=== PATIENT | male | born 1950 | race Caucasian/White ===

== ENCOUNTER 2016-09-11 19:31 | Emergency (ER) | payer MEDICARE, MEDICAID, OTHER ==
[2016-09-11] MEDS ORDERED: Morphine 4 MG/ML Syringe IVPUSH ONE ×2 (21:15→22:44)
[2016-09-11] MEDS ORDERED: Sodium Chloride 0.9% 10 ML Syringe FLUSH PRN (21:15)
[2016-09-11] MEDS ORDERED: Sodium Chloride 0.9% 1,000 ML IV SCH (21:30)
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
[2016-09-11 22:50] VITALS: BP 126/66
--- NOTE | 2016-09-12 08:44 | CR ---
Chest 2V INDICATION: dyspnea, recent mesothelioma diagnosis FINDINGS: Normal heart size. No focal infiltrate. Diffuse osteopenia. Changes of vertebral augmentat ion. Old right rib fracture. Bilateral nipple shadows.
== END 2016-09-11 23:35 | disposition home or self-care (01) ==
LOC: JP.ED 19:31
DX: R53.1 Weakness (principal); R63.4 Abnormal weight loss; R10.13 Epigastric pain; R73.9 Hyperglycemia, unspecified; R79.89 Other specified abnormal findings of blood chemistry; C45.7 Mesothelioma of other sites; C73 Malignant neoplasm of thyroid gland; Z88.0 Allergy status to penicillin; Z79.899 Other long term (current) drug therapy; Z98.1 Arthrodesis status; Z98.890 Other specified postprocedural states; Z87.891 Personal history of nicotine dependence
CPT/HCPCS: 36415; 70450; 71020; 80053; 81001; 83605; 83690; 84484; 85027; 93005; 96361; 96374; 96376; 99285; J2270; J7040; J7050; 93010; 99284

== ENCOUNTER 2016-09-13 03:54 | Inpatient (IN) | payer MEDICARE, OTHER ==
[2016-09-13] MEDS ORDERED: Sodium Chloride 0.9% 1,000 ML IV SCH ×3 (04:00→15:30)
--- NOTE | 2016-09-13 04:30 | EDM.PDOC ---
ED HPI Trauma - General Chief Complaint: Trauma Stated Complaint: [facility] Time Seen by Provider: 09/13/16 04:22 Source: Reports: EMS, Family (Daughter), Old records, RN notes reviewed History Limitations: Reports: Altered mental status - History of Present Illness INITIAL COMMENTS - FREE TEXT/NARRATIVE: 45 Seen on arrival by EMS, trauma code called prior to arrival Chief complaint Fall, loss of consciousness, unresponsive HPI 66-year-old male with recently diagnosed thyroid carcinoma and mesothelioma from previous asbestos exposure, not yet seen by oncology, new to the area of because he was homeless for approximately 3 weeks until his daughter received an anonymous phone call and went down to [place] to pick him up. He has been in the area for about 4 days staying with his daughter. Seen in emergency 2 days ago with pain primarily in his back but also all over. He has chronic pain from compression fractures in his thoracic spine he's had previous kyphoplasty and spinal fusion. Evaluation in emergency showed weight loss and malnutrition but no evidence of acute decompensation and after pain medication was given he was discharged with instructions to followup in the clinic. He has appointment for Saturday with Dr. Ivy. He has been off all alcohol since at least 5 days and there is no illegal drug use. Uncertain when his last seizure was. He ate well all day and was actually ambulating on his own. He's been staying on the main level his daughter's place with a bedroom and bathroom are. He goes upstairs to eat for the dining room living room and kitchen are located. After dinner 6 PM tonight he went downstairs which is a bit unusual as these spent some time up stairs. He had coughed a small amount of blood when the daughter had gone down to check on him. He was camping come upstairs at 2 AM this morning, uncertain why since he has a bathroom downstairs, when daughter and heard him fall on the stairs. It 's uncertain how far he was up the stairs. They found him unresponsive and probably called EMS. EMS noted his vital signs were normal but he had grunting respirations and improved when he had a nasopharyngeal airway inserted on initial arrival B[place] Coma Scale was 7 and after checking him, he did open his eyes spontaneously and other diffuse symptoms getting a [place] Coma Scale of 13 Allergies/ADRs: Allergies Penicillins Allergy (Verified 09/13/16 04:32) Anaphylactic Shock Home Medications: Ambulatory Orders ALPRAZolam [Alprazolam] 1 mg PO BID 09/11/16 [Confirmed 09/13/16] Hydrocodone/Acetaminophen [Hydrocodon-Acetaminophen 5-325] 1 each PO Q4H PRN # 12 tablet 09/11/16 [Confirmed 09/13/16] Hydrocodone/Acetaminophen [Hydrocodon-Acetaminophn 10-325] 1 - 2 tab PO Q6H PRN 09/11/16 [Confirmed 09/13/16] PHENobarbital [Phenobarbital] 97.2 mg PO BID 09/11/16 [Confirmed 09/13/16] Phenytoin 200 mg PO BID 09/11/16 [Confirmed 09/13/16] Past Medical History Respiratory History: Reports: COPD Genitourinary History: Reports: BPH Musculoskeletal History: Reports: Back pain, chronic Neurological History: Reports: Seizure Psychiatric History: Reports: Addiction Oncologic (Cancer) History: Reports: Lung, Thyroid, Other (see below) Other Oncologic History: mesotheleoma - Infectious Disease History Infectious Disease History: Reports: Chicken pox - Past Surgical History HEENT Surgical History: Reports: Tonsillectomy GI Surgical History: Reports: Esophageal dilatation Endocrine Surgical History: Reports: Other (see below) Other Endocrine Surgeries/Procedures: thyroid cancer Neurological Surgical History: Reports: Spinal fusion Musculoskeletal Surgical History: Reports: Other (see below) (Spinal fusion one level) Other Musculoskeletal Surgeries/Procedures:: back fusion Social & Family History - Tobacco Use Smoking Status *Q: Former Smoker Years of Tobacco use: 50 Packs/Tins Daily: 2 - Caffeine Use Caffeine Use: Reports: Coffee - Recreational Drug Use Recreational Drug Use: No Review of Systems - Review of Systems Review Of Systems: Unable To Obtain (Due to unresponsiveness) ED EXAM, TRAUMA (MAJOR/MULTI) - Physical Exam Exam: See Below Exam Limited By: Altered mental status General Appearance: obtunded, other (Breathing spontaneously on room air with nasopharyngeal airway, blood pressure 140 systolic) Head: atraumatic, normocephalic Eyes: bilateral eye: normal inspection (Normal pupillary reaction) Ears: normal external exam, normal canal Nose: normal inspection, normal mucousa Throat/Mouth: Normal inspection (Except for dry mucous membranes) Neck: other (Cervical collar in place, patient did complain briefly of neck pain ) Cardiovascular: normal peripheral pulses, regular rate, rhythm Respiratory/Chest: no respiratory distress, no accessory muscle use, rales ( Diffusely) GI/Abdominal: normal bowel sounds, soft (Male) Exam: No hernia, Normal inspection Extremities: other (Superficial abrasions dorsum of right hand, no deformity) Neurologic: other (Obtunded, no facial droop, some tremor) Skin: Normal color, Warm/dry - B[place]ide Coma Score Best Eye Response (Bayside): (1) no response Best Verbal Response (Bayside): (2) incomprehsible sounds Best Motor Response (Bayside): (4) withdraws to pain [place]ide Total: 7 (Within a few minutes he did open his eyes spontaneously to voice he had confused conversation saying get me out of here, any localized discomfort giving a [place] Coma Scale of 13) Course - Vital Signs Last Recorded V/S: Last Vital Signs Temp 35.9 C 09/13/16 04:44 Pulse 59 L 09/13/16 04:44 Resp 12 09/13/16 04:44 BP 141/70 H 09/13/16 04:44 Pulse Ox 100 09/13/16 04:44 - Orders/Labs/Meds Orders: Active Orders 24 hr Category Date Time Status EKG Documentation Completion [RC] ASDIRECTED Care 09/13/16 03:56 Active Peripheral IV Care [RC] . DIRECTED Care 09/13/16 03:56 Active C-Spine [Cervical Spine wo Cont] [CT] Stat Exams 09/13/16 03:55 Taken Chest 1V Frontal [CR] Stat Exams 09/13/16 04:20 Taken Head wo Cont [CT] Stat Exams 09/13/16 03:55 Taken Sodium Chloride 0.9% [Normal Saline] 1,000 ml Med 09/13/16 04:00 Active IV ASDIRECTED Sodium Chloride 0.9% [Saline Flush] Med 09/13/16 03:55 Active 10 ml FLUSH ASDIRECTED PRN Peripheral IV Insertion Adult [OM.PC] Routine Oth 09/13/16 03:55 Ordered EKG 12 Lead [EK] Routine Ther 09/13/16 03:55 Ordered Medication Orders Sodium Chloride (Normal Saline) 1,000 mls @ 250 mls/hr IV ASDIRECTED BRITTANY Last Admin: 09/13/16 04:31 Dose: 250 mls/hr Sodium Chloride (Saline Flush) 10 ml FLUSH ASDIRECTED PRN PRN Reason: Keep Vein Open Last Admin: 09/13/16 04:31 Dose: 10 ml Labs: Laboratory Tests 09/13/16 09/13/16 09/13/16 Range/Units 03:55 03:55 04:20 WBC 4.9 (4.5-11.0) K/uL RBC 3.99 L (4.30-5.90) M/uL Hgb 13.6 (12.0-15.0) g/dL Hct 40.0 (40.0-54.0) % MCV 100 H (80-98) fL MCH 34 H (27-31) pg MCHC 34 (32-36) % Plt Count 146 L (150-400) K/uL ABG Hemoglobin 13.4 L (13.5-18.0) g/dL ABG Oxyhemoglobin 60.6 % ABG Carboxyhemoglobin 1.7 H (0.0-1.6) % ABG Methemoglobin 0.8 % VBG pH 7.421 (7.350-7.450) VBG pCO2 43.4 mm/Hg VBG pO2 34.3 mm/Hg VBG HCO3 27.7 mmol/L VBG Total CO2 24.7 mmol/L VBG O2 Saturation 62.2 VBG O2 Content 11.4 %vol VBG Base Excess 3.3 mm/L O2 Delivery Device Room air Sodium 146 (140-148) mmol/L Potassium 3.8 (3.6-5.2) mmol/L Chloride 108 (100-108) mmol/L Carbon Dioxide 13 L D (21-32) mmol/L Anion Gap 28.8 H (5.0-14.0) mmol/L BUN 10 (7-18) mg/dL Creatinine 1.8 H (0.8-1.3) mg/dL Est Cr Clr Drug Dosing TNP Estimated GFR (MDRD) 38 L (>60) Glucose 101 (74-106) mg/dL Calcium 8.0 L (8.5-10.1) mg/dL Total Bilirubin 0.4 (0.2-1.0) mg/dL AST 32 (15-37) U/L ALT 35 (12-78) U/L Alkaline Phosphatase 80 (46-116) U/L Troponin I < 0.017 (0.000-0.056) ng/mL Total Protein 5.9 L (6.4-8.2) g/dL Albumin 3.5 (3.4-5.0) g/dL Globulin 2.4 (2.3-3.5) g/dL Albumin/Globulin Ratio 1.5 (1.2-2.2) Meds: Medications Generic Name Dose Route Start Last Admin Trade Name Freq PRN Reason Stop Dose Admin Sodium Chloride 1,000 mls @ 250 mls/hr 09/13/16 04:00 09/13/16 04:31 Normal Saline IV 250 mls/hr ASDIRECTED BRITTANY Administration Sodium Chloride 10 ml 09/13/16 03:55 09/13/16 04:31 Saline Flush FLUSH 10 ml ASDIRECTED PRN Administration Keep Vein Open - Re-Assessments/Exams Free Text/Narrative Re-Assessment/Exam: 09/13/16 04:32 66-year-old male recently moved to the area, after being homeless and malnourished for 3 weeks, with as yet uninvestigated diagnoses of thyroid cancer and mesothelioma. He does have a history of seizure disorder. Has also had frequent falls at home previously. Unwitnessed fall at home but family her in followup promptly called EMS when he was discovered on the stairs unresponsive. He still is quite drowsy post episode. Investigations 09/13/16 04:49 WBC normal hemoglobin normal platelets slightly low at 146 Creatinine 1.8 versus 2.32 days ago and GFR is improved 38 versus 29 2 days ago. Hepatic profile normal, troponin normal, Glucose 101 versus [address] head negative for acute changes CT neck no acute changes Portable chest x-ray no acute changes by my interpretation EKG shows sinus rhythm with low voltages rate 63 nonspecific T-wave changes Trauma code called off at 5 AM Patient now showing normal speech appropriate response to commands, [place] Coma Scale 15 Hospitalist was contacted for admission in view of the seizure his fragile status malnutrition. He needs referral to oncology. 09/13/16 05:00 Departure - Departure Time of Disposition: 05:01 Disposition: DC/Tfer to SNF 03 Clinical Impression: Malnutrition, Mesothelioma of both lungs Altered mental status Qualifiers: Altered mental status type: somnolence Qualified Code(s): R40.0 - Somnolence Accident due to mechanical fall without injury Qualifiers: Encounter type: initial encounter Qualified Code(s): W19.XXXA - Unspecified fall, initial encounter - My Orders Last 24 Hours: My Active Orders 09/13/16 03:55 C-Spine [Cervical Spine wo Cont] [CT] Stat Head wo Cont [CT] Stat Sodium Chloride 0.9% [Saline Flush] 10 ml FLUSH ASDIRECTED PRN Peripheral IV Insertion Adult [OM.PC] Routine EKG 12 Lead [EK] Routine 09/13/16 03:56 EKG Documentation Completion [RC] ASDIRECTED Peripheral IV Care [RC] . DIRECTED 09/13/16 04:00 Sodium Chloride 0.9% [Normal Saline] 1,000 ml IV ASDIRECTED 09/13/16 04:20 Chest 1V Frontal [CR] Stat - Assessment/Plan Last 24 Hours: My Active Orders 09/13/16 03:55 C-Spine [Cervical Spine wo Cont] [CT] Stat Head wo Cont [CT] Stat Sodium Chloride 0.9% [Saline Flush] 10 ml FLUSH ASDIRECTED PRN Peripheral IV Insertion Adult [OM.PC] Routine EKG 12 Lead [EK] Routine 09/13/16 03:56 EKG Documentation Completion [RC] ASDIRECTED Peripheral IV Care [RC] . DIRECTED 09/13/16 04:00 Sodium Chloride 0.9% [Normal Saline] 1,000 ml IV ASDIRECTED 09/13/16 04:20 Chest 1V Frontal [CR] Stat
[2016-09-13] MEDS: Sodium Chloride 0.9% 10 ML Syringe FLUSH PRN (04:31)
[2016-09-13] MEDS ORDERED: Lidocaine 2% Jelly 10 ML Urojet ONE (05:10)
[2016-09-13] MEDS ORDERED: Lidocaine 2% Jelly 10 ML Urojet MUCMEM ONE (05:20)
[2016-09-13] MEDS ORDERED: Morphine 2 MG/ML Syringe IVPUSH ONE (05:26)
[2016-09-13] MEDS ORDERED: Ondansetron 4 MG/2 ML SDV IVPUSH ONE (05:28)
--- NOTE | 2016-09-13 05:32 | PCM.HP ---
H&P History of Present Illness - General Date of Service: 09/13/16 Admit Problem/Dx: - altered mental status - accident due to mechanical fall without injury -malnutrition, bmi 19.7 - history of coughing/emesis blood space yesterday at 6 PM -History of chronic alcoholism -History of tobacco use -history of seizure disorder Source of Information: EMS, Family (Daughter Leonie), Provider History Limitations: Reports: Altered mental status - History of Present Illness Initial Comments - Free Text/Narative: INITIAL COMMENTS - FREE TEXT/NARRATIVE: 45 Seen on arrival by EMS, trauma code called prior to arrival Chief complaint Fall, loss of consciousness, unresponsive HPI 66-year-old male with recently diagnosed thyroid carcinoma and mesothelioma from previous asbestos exposure, not yet seen by oncology, new to the area of because he was homeless for approximately 3 weeks until his daughter received an anonymous phone call and went down to [place] to pick him up. He has been in the area for about 4 days staying with his daughter. Seen in emergency 2 days ago with pain primarily in his back but also all over. He has chronic pain from compression fractures in his thoracic spine he's had previous kyphoplasty and spinal fusion. Evaluation in emergency showed weight loss and malnutrition but no evidence of acute decompensation and after pain medication was given he was discharged with instructions to followup in the clinic. He has appointment for Saturday with Dr. Ivy. History of present illness from ER note complaint: fall at home with altered mental status He has been off all alcohol since at least 5 days and there is no illegal drug use. Uncertain when his last seizure was. He ate well all day and was actually ambulating on his own. He's been staying on the main level his daughter's place with a bedroom and bathroom are. He goes upstairs to eat for the dining room living room and kitchen are located. After dinner 6 PM tonight he went downstairs which is a bit unusual as these spent some time up stairs. He had coughed a small amount of blood when the daughter had gone down to check on him. He was come upstairs at 2 AM this morning, uncertain why since he has a bathroom downstairs, when daughter and heard him fall on the stairs. It 's uncertain how far he was up the stairs. They found him unresponsive, called EMS. EMS noted his vital signs were normal but he had grunting respirations and improved when he had a nasopharyngeal airway inserted on initial arrival [place] Coma Scale was 7 and after checking him, he did open his eyes spontaneously and other diffuse symptoms getting a [place] Coma Scale of 13 Allergies/ADRs: Allergies 09/13/16 04:32 66-year-old male recently moved to the area, after being homeless and malnourished for 3 weeks, with as yet uninvestigated diagnoses of thyroid cancer and mesothelioma. He does have a history of seizure disorder. Has also had frequent falls at home previously. Unwitnessed fall at home but family her in followup promptly called EMS when he was discovered on the stairs unresponsive. He still is quite drowsy post episode. Investigations 09/13/16 04:49 WBC normal hemoglobin normal platelets slightly low at 146 Creatinine 1.8 versus 2.32 days ago and GFR is improved 38 versus 29 2 days ago. Hepatic profile normal, troponin normal, Glucose 101 versus [address] head negative for acute changes CT neck no acute changes Portable chest x-ray no acute changes by my interpretation EKG shows sinus rhythm with low voltages rate 63 nonspecific T-wave changes Trauma code called off at 5 AM Patient now showing normal speech appropriate response to commands, [place] Coma Scale 15 Hospitalist was contacted for admission in view of the seizure his fragile status malnutrition. He needs referral to oncology. 09/13/16 05:00 Onset of Symptoms: Reports: sudden Symptom Onset Date: 09/13/16 Symptom Onset Time: 02:00 Duration of Symptoms: Reports: Recurring (Falls at home) Location: Reports: generalized Quality: Reports: Other ( Sleepy) Improves with: Reports: Medication Worsens with: Reports: None Associated Symptoms: Reports: other (Unknown if a slip, fall, or seizure occur) - Related Data Allergies/Adverse Reactions: Allergies Allergy/AdvReac Type Severity Reaction Status Date / Time Penicillins Allergy Anaphylactic Verified 09/13/16 04:32 Shock Home Medications: Home Meds ALPRAZolam [Alprazolam] 1 mg PO BID 09/11/16 [History] Hydrocodone/Acetaminophen [Hydrocodon-Acetaminophen 5-325] 1 each PO Q4H PRN # 12 tablet 09/11/16 [Rx] Hydrocodone/Acetaminophen [Hydrocodon-Acetaminophn 10-325] 1 - 2 tab PO Q6H PRN 09/11/16 [History] PHENobarbital [Phenobarbital] 97.2 mg PO BID 09/11/16 [History] Phenytoin 200 mg PO BID 09/11/16 [History] Nicotine [Nicotine Patch] 21 g TOP DAILY 09/13/16 [History] Past Medical History HEENT History: Reports: Impaired vision Respiratory History: Reports: COPD Gastrointestinal History: Reports: GERD Genitourinary History: Reports: BPH Other Genitourinary History: recent kidney function issue but undiagnoised at this time Musculoskeletal History: Reports: Back pain, chronic Neurological History: Reports: Seizure Psychiatric History: Reports: Addiction Endocrine/Metabolic History: Reports: Other (see below) Other Endocrine/Metabolic History: recent elevated blood sugars, undiagnoised. thyroid cancer, failed to go to surgery on 09/01/16 Oncologic (Cancer) History: Reports: Lung, Thyroid, Other (see below) Other Oncologic History: mesotheleoma - Infectious Disease History Infectious Disease History: Reports: Chicken pox - Past Surgical History HEENT Surgical History: Reports: Tonsillectomy GI Surgical History: Reports: Esophageal dilatation Endocrine Surgical History: Reports: Other (see below) Other Endocrine Surgeries/Procedures: thyroid cancer Neurological Surgical History: Reports: Spinal fusion Musculoskeletal Surgical History: Reports: Other (see below) (Spinal fusion one level) Other Musculoskeletal Surgeries/Procedures:: back fusion Social & Family History - Tobacco Use Smoking Status *Q: Former Smoker Years of Tobacco use: 50 Packs/Tins Daily: 2 - Caffeine Use Caffeine Use: Reports: Coffee - Recreational Drug Use Recreational Drug Use: No - Living Situation & Occupation Living situation: Reports: , with family Occupation: disabled H&P Review of Systems - Review of Systems: Review Of Systems: See Below General: Reports: weakness, other (Decreased level of consciousness ) HEENT: Reports: other (Multiple old bruises noted from previous falls, thyroid cancer not treated at this time) Pulmonary: Reports: Other (Mesothelioma) Cardiovascular: Reports: no symptoms Gastrointestinal: Reports: Anorexia, Constipation (Last bowel movement 5 days ago), Hematemesis (Today at 6 PM) Genitourinary: Reports: retention (Unable to void in the ER , Bladder scan shows greater than 1000 mL's,), other Musculoskeletal: Reports: back pain (Chronic back pain) Skin: Reports: bruising (Multiple bruises noted to face arms legs from previous falls) Psychiatric: Reports: depression, anxiety, agitation, other (History of addiction to alcohol, anxiety, suicide attempt by cutting, homelessness, mental illness) Neurological: Reports: Confusion, Pre-Existing Deficit, Seizure Hematologic/Lymphatic: Reports: easy bleeding Immunologic: Reports: no symptoms Exam - Exam Exam: See Below - Vital Signs Vital Signs: Last Vital Signs Temp 35.9 C 09/13/16 04:44 Pulse 59 L 09/13/16 04:44 Resp 12 09/13/16 04:44 BP 141/70 H 09/13/16 04:44 Pulse Ox 100 09/13/16 04:44 Weight: 55.338 kg - Exam Quality Assessment: urinary catheter General: lethargic HEENT: PERRLA, Conjunctiva clear, EACs clear, EOMI, Hearing intact, Mucosa moist & pink, Nares patent, Normal nasal septum, Posterior pharynx clear, Pupils equal, Pupils reactive Neck: supple Lungs: Clear to auscultation, Normal respiratory effort Cardiovascular: regular rate, regular rhythm Abdomen: normal bowel sounds, soft (Male) Exam: No hernia, Normal inspection, Normal prostate, Circumcised, Other (Sample collected for Hemoccult stool, rectal exam no stool is noted) Rectal (Males) Exam: Normal exam, Normal rectal tone, Prostate normal Back Exam: normal inspection, decreased range of motion Extremities: normal inspection Peripheral Pulses: 2+: radial (L), radial (R), dorsalis pedis (L), dorsalis pedis (R) Skin: warm, dry, intact, ecchymosis (Multiple stages of bruising noted to left forehead left side of face bilateral arms and legs) Neurological: other (Lethargic from fall) Neuro Extensive - Mental Status: other (Moves arms and legs equally) Psychiatric: other (Decreased level consciousness) Physical Exam Comments:: Very thin anorexic male is noted, does awake for rectal exam and urinary catheter otherwise sleeping - Patient Data Lab Results last 24 hrs: Laboratory Results - last 24 hr 09/13/16 09/13/16 09/13/16 Range/Units 03:55 03:55 04:20 WBC 4.9 (4.5-11.0) K/uL RBC 3.99 L (4.30-5.90) M/uL Hgb 13.6 (12.0-15.0) g/dL Hct 40.0 (40.0-54.0) % MCV 100 H (80-98) fL MCH 34 H (27-31) pg MCHC 34 (32-36) % Plt Count 146 L (150-400) K/uL ABG Hemoglobin 13.4 L (13.5-18.0) g/dL ABG Oxyhemoglobin 60.6 % ABG Carboxyhemoglobin 1.7 H (0.0-1.6) % ABG Methemoglobin 0.8 % VBG pH 7.421 (7.350-7.450) VBG pCO2 43.4 mm/Hg VBG pO2 34.3 mm/Hg VBG HCO3 27.7 mmol/L VBG Total CO2 24.7 mmol/L VBG O2 Saturation 62.2 VBG O2 Content 11.4 %vol VBG Base Excess 3.3 mm/L O2 Delivery Device Room air Sodium 146 (140-148) mmol/L Potassium 3.8 (3.6-5.2) mmol/L Chloride 108 (100-108) mmol/L Carbon Dioxide 13 L D (21-32) mmol/L Anion Gap 28.8 H (5.0-14.0) mmol/L BUN 10 (7-18) mg/dL Creatinine 1.8 H (0.8-1.3) mg/dL Est Cr Clr Drug Dosing TNP Estimated GFR (MDRD) 38 L (>60) Glucose 101 (74-106) mg/dL Calcium 8.0 L (8.5-10.1) mg/dL Total Bilirubin 0.4 (0.2-1.0) mg/dL AST 32 (15-37) U/L ALT 35 (12-78) U/L Alkaline Phosphatase 80 (46-116) U/L Troponin I < 0.017 (0.000-0.056) ng/mL Total Protein 5.9 L (6.4-8.2) g/dL Albumin 3.5 (3.4-5.0) g/dL Globulin 2.4 (2.3-3.5) g/dL Albumin/Globulin Ratio 1.5 (1.2-2.2) Result Diagrams: 09/13/16 03:55 09/13/16 03:55 *Q Meaningful Use (ADM) - VTE *Q VTE Criteria *Q: - Stroke *Q Stroke Criteria *Q: - AMI *Q AMI Criteria *Q: - Problem List (1) Accident due to mechanical fall without injury SNOMED Code(s): 62801411259091 ICD Code: W19.XXXA - UNSPECIFIED FALL, INITIAL ENCOUNTER Status: Acute Priority: High Current Visit: Yes Qualifiers: Encounter type: initial encounter Qualified Code(s): W19.XXXA - Unspecified fall, initial encounter (2) Altered mental status SNOMED Code(s): 679969892 ICD Code: R41.82 - ALTERED MENTAL STATUS, UNSPECIFIED Status: Acute Priority: High Current Visit: Yes Qualifiers: Altered mental status type: somnolence Qualified Code(s): R40.0 - Somnolence (3) Malnutrition SNOMED Code(s): 8941789 ICD Code: E46 - UNSPECIFIED PROTEIN-CALORIE MALNUTRITION Status: Acute Priority: High Current Visit: Yes Problem Details: 30 pound wt loss since Feb 2016 (4) Chronic thoracic back pain SNOMED Code(s): 610071013 ICD Code: M54.6 - PAIN IN THORACIC SPINE; G89.29 - OTHER CHRONIC PAIN Status: Acute Current Visit: No Qualifiers: Back pain laterality: midline Qualified Code(s): M54.6 - Pain in thoracic spine; G89.29 - Other chronic pain (5) Thyroid cancer Status: Acute Current Visit: Yes (6) Mesothelioma of both lungs SNOMED Code(s): 896092381, 295097713 ICD Code: C45.7 - MESOTHELIOMA OF OTHER SITES Status: Acute Priority: High Current Visit: Yes Problem List Initiated/Reviewed/Updated: Yes Orders Last 24hrs: Active Orders 24 hr Category Date Time Status EKG Documentation Completion [RC] ASDIRECTED Care 09/13/16 03:56 Active Chavarria Catheter Insertion [Insert Urinary Catheter] [OM. Care 09/13/16 05:30 Ordered PC] Q24H Peripheral IV Care [RC] . DIRECTED Care 09/13/16 03:56 Active Urinary Catheter Assessment [RC] ASDIRECTED Care 09/13/16 05:21 Active C-Spine [Cervical Spine wo Cont] [CT] Stat Exams 09/13/16 03:55 Taken Chest 1V Frontal [CR] Stat Exams 09/13/16 04:20 Taken Head wo Cont [CT] Stat Exams 09/13/16 03:55 Taken AMMONIA VENOUS [CHEM] Stat Lab 09/13/16 05:25 Ordered DRUG SCREEN, URINE [URCHEM] Stat Lab 09/13/16 05:27 Uncollected OCCULT BLOOD SCREEN [OP] Stat Lab 09/13/16 05:24 Ordered UA W/MICROSCOPIC [URIN] Stat Lab 09/13/16 05:27 Uncollected Sodium Chloride 0.9% [Normal Saline] 1,000 ml Med 09/13/16 04:00 Active IV ASDIRECTED Sodium Chloride 0.9% [Saline Flush] Med 09/13/16 03:55 Active 10 ml FLUSH ASDIRECTED PRN Peripheral IV Insertion Adult [OM.PC] Routine Oth 09/13/16 03:55 Ordered EKG 12 Lead [EK] Routine Ther 09/13/16 03:55 Ordered Medication Orders Sodium Chloride (Normal Saline) 1,000 mls @ 250 mls/hr IV ASDIRECTED BRITTANY Last Admin: 09/13/16 04:31 Dose: 250 mls/hr Sodium Chloride (Saline Flush) 10 ml FLUSH ASDIRECTED PRN PRN Reason: Keep Vein Open Last Admin: 09/13/16 04:31 Dose: 10 ml Assessment/Plan Comment:: ASSESSMENT / PLAN -This is a 66 year old male present to ER via EMS with fall down carpeted stairs at 2 AM., daughter found him unresponsive at the bottom of the stairs. unable to awaken her Father, call EMS to transport to the hospital/ER for further care and treatment. Upon arrival Trauma Code was activated, he had labs , CT scan of neck and head, chest xray, EKG. see ER noted. It was recommended to admit to hospital for further care and monitoring. past history of chronic alcoholism, mental illness, cancer of lungs and thyroid -not treated, disable, new relocation to [place] Plan -Admit to [address] [place] [address] for further monitoring -Telemetry; show SR -IV fluids for rehydration NS at 125 mL per hour -Advise to notify nurses of any chest pain or other symptoms -And 11 a.m. labs: repeat CBC -pending labs; ua, uds, fecal occult stool -monitor for any signs cough or emesis containing blood Maintenance issues -Orders home meds: -Nutrition: NPO, til more awake -Chavarria catheter place for bladder retention -DVT: hold -tobacco ; apply Nicotine patch daily 21mg -GI prophalaxis; Prontix 40mg iv -referral to: social welfare research worker, case management director, PT and OT CODE STATUS: Full Admission status: Admit to [address] [place] [address] Admission justification. This patient will be admitted for inpatient services and is medically appropriate meeting medical necessity for inpatient admission as outlined in my documentation. I reasonably expect the patient will require inpatient services that span. Time over 2 midnights. I reasonably expect this patient to be discharged or transferred within 96 hours after admission to the [facility]. Disposition; home with Daughter Leonie or Assisted/[facility] facility Primary care provider: CORNELIUS Buckley
[2016-09-13] MEDS ORDERED: Pantoprazole 40 MG Vial IV SCH (06:00)
[2016-09-13] MEDS ORDERED: Albuterol 0.083% 2.5 MG/3 ML Neb Soln NEB PRN (06:20)
[2016-09-13] MEDS ORDERED: Ondansetron 4 MG Tab.DIS PO PRN (06:20)
[2016-09-13] MEDS ORDERED: Acetaminophen 325 MG Tab PO PRN (06:20)
[2016-09-13] MEDS ORDERED: oxyCODONE 5 MG Tab PO PRN (06:20)
[2016-09-13] MEDS: LORazepam 2 MG/ML MDV IV PRN (06:39)
[2016-09-13] MEDS: Pantoprazole 40 MG Vial IV SCH ×2 (08:43→19:26)
[2016-09-13] MEDS: Morphine 2 MG/ML Syringe IVPUSH PRN ×5 (09:37→23:56)
[2016-09-13] MEDS: Phenytoin 100 MG Cap.ER PO SCH ×2 (09:41→21:49)
[2016-09-13] MEDS: Nicotine 21 MG/24 Hr Patch TRDERM SCH (09:41)
[2016-09-13] MEDS: PHENobarbital 32.4 MG Tab PO SCH ×2 (09:51→21:53)
[2016-09-13] MEDS: ALPRAZolam 0.5 MG Tab PO SCH ×2 (09:52→21:53)
--- NOTE | 2016-09-13 12:28 | CR ---
Mild cardiomegaly. Pulmonary vasculature within normal limits. Old right rib fractures. No focal con solidation.
--- NOTE | 2016-09-13 15:20 | PCM.PN ---
- General Info Date of Service: 09/13/16 - Review of Systems Systems Review Comment:: This patient is a 66-year-old gentleman who was admitted early this morning following a fall at home, with loss of consciousness. Patient apparently moved here recently to be with family, prior to that apparently was homeless and recently diagnosed with mesothelioma as well as a thyroid carcinoma. When I saw him this morning he was sleeping fairly hard and I was not able to awaken him to obtain further information concerning recent symptoms or events. Nursing staff states that the patient will awake intermittently to have something to eat. There is a past history of alcohol use and his last alcohol intake is presently unknown. Thus far there's been no evidence of significant alcohol withdrawal. When he initially presented did have significant acidosis, with the underlying question of possible seizure. - Patient Data Vitals - most recent: Last Vital Signs Temp 96.5 F 09/13/16 14:45 Pulse 88 09/13/16 14:45 Resp 20 09/13/16 14:45 BP 139/80 09/13/16 14:45 Pulse Ox 100 09/13/16 14:45 Weight - most recent: 121 lb 15.99 oz I&O - last 24 hours: Intake & Output 09/13/16 09/13/16 09/13/16 06:59 14:59 22:59 Output Total 900 525 Balance -900 -525 Lab Results last 24 hrs: Laboratory Results - last 24 hr 09/13/16 09/13/16 09/13/16 Range/Units 05:36 05:36 08:23 WBC (4.5-11.0) K/uL RBC (4.30-5.90) M/uL Hgb (12.0-15.0) g/dL Hct (40.0-54.0) % MCV (80-98) fL MCH (27-31) pg MCHC (32-36) % Plt Count (150-400) K/uL Neut % (Auto) (36-66) % Lymph % (Auto) (24-44) % Cottle % (Auto) (2-6) % Eos % (Auto) (2-4) % Baso % (Auto) (0-1) % Puncture Site Rt brachial ABG pH 7.387 (7.350-7.450) ABG pCO2 46.3 H (35.0-42.0) mmHg ABG pO2 70.1 L (75.0-100.0) mmHg ABG HCO3 27.2 H (22.0-26.0) mmol/L ABG Total CO2 24.5 (23.0-27.0) mmol/L ABG O2 Saturation 92.4 L (95.0-98.0) % ABG O2 Content 16.5 (15.0-23.0) %vol ABG Base Excess 2.2 mm/L ABG Hemoglobin 12.9 L (13.5-18.0) g/dL ABG Oxyhemoglobin 90.6 % ABG Carboxyhemoglobin 1.2 (0.0-1.6) % ABG Methemoglobin 0.7 % Cash Test Passed O2 Delivery Device Nasal cannula Oxygen Flow Rate 0 L Lactic Acid (0.4-2.0) mmol/L Urine Color Yellow Urine Appearance Clear Urine pH 7.0 (4.5-8.0) Ur Specific [place] 1.015 (1.008-1.030) Urine Protein Negative (NEGATIVE) mg/dL Urine Glucose (UA) Normal (NEGATIVE) mg/dL Urine Ketones 15 H (NEGATIVE) mg/dL Urine Occult Blood Negative (NEGATIVE) Urine Nitrite Negative (NEGAITVE) Urine Bilirubin Negative (NEGATIVE) Urine Urobilinogen Normal (NORMAL) mg/dL Ur Leukocyte Esterase Negative (NEGATIVE) Urine RBC 0-5 (0-5) Urine WBC 0-5 (0-5) Ur Epithelial Cells Rare Amorphous Sediment Few Urine Bacteria Rare Urine Mucus Few Urine Opiates Screen Positive H (NEGATIVE) Ur Oxycodone Screen Negative (NEGATIVE) Urine Methadone Screen Negative (NEGATIVE) Ur Propoxyphene Screen Negative (NEGATIVE) Ur Barbiturates Screen Positive H (NEGATIVE) Ur Tricyclics Screen Negative (NEGATIVE) Ur Phencyclidine Scrn Negative (NEGATIVE) Ur Amphetamine Screen Negative (NEGATIVE) U Methamphetamines Scrn Negative (NEGATIVE) Urine MDMA Screen Negative (NEGATIVE) U Benzodiazepines Scrn Negative (NEGATIVE) U Cocaine Metab Screen Negative (NEGATIVE) U Marijuana (THC) Screen Negative (NEGATIVE) 09/13/16 09/13/16 Range/Units 08:24 11:25 WBC 5.1 (4.5-11.0) K/uL RBC 3.53 L (4.30-5.90) M/uL Hgb 12.1 (12.0-15.0) g/dL Hct 36.0 L (40.0-54.0) % MCV 102 H (80-98) fL MCH 34 H (27-31) pg MCHC 34 (32-36) % Plt Count 131 L (150-400) K/uL Neut % (Auto) 57 (36-66) % Lymph % (Auto) 29 (24-44) % Cottle % (Auto) 11 H (2-6) % Eos % (Auto) 2 (2-4) % Baso % (Auto) 1 (0-1) % Puncture Site ABG pH (7.350-7.450) ABG pCO2 (35.0-42.0) mmHg ABG pO2 (75.0-100.0) mmHg ABG HCO3 (22.0-26.0) mmol/L ABG Total CO2 (23.0-27.0) mmol/L ABG O2 Saturation (95.0-98.0) % ABG O2 Content (15.0-23.0) %vol ABG Base Excess mm/L ABG Hemoglobin (13.5-18.0) g/dL ABG Oxyhemoglobin % ABG Carboxyhemoglobin (0.0-1.6) % ABG Methemoglobin % Cash Test O2 Delivery Device Oxygen Flow Rate L Lactic Acid 0.4 (0.4-2.0) mmol/L Urine Color Urine Appearance Urine pH (4.5-8.0) Ur Specific [place] (1.008-1.030) Urine Protein (NEGATIVE) mg/dL Urine Glucose (UA) (NEGATIVE) mg/dL Urine Ketones (NEGATIVE) mg/dL Urine Occult Blood (NEGATIVE) Urine Nitrite (NEGAITVE) Urine Bilirubin (NEGATIVE) Urine Urobilinogen (NORMAL) mg/dL Ur Leukocyte Esterase (NEGATIVE) Urine RBC (0-5) Urine WBC (0-5) Ur Epithelial Cells Amorphous Sediment Urine Bacteria Urine Mucus Urine Opiates Screen (NEGATIVE) Ur Oxycodone Screen (NEGATIVE) Urine Methadone Screen (NEGATIVE) Ur Propoxyphene Screen (NEGATIVE) Ur Barbiturates Screen (NEGATIVE) Ur Tricyclics Screen (NEGATIVE) Ur Phencyclidine Scrn (NEGATIVE) Ur Amphetamine Screen (NEGATIVE) U Methamphetamines Scrn (NEGATIVE) Urine MDMA Screen (NEGATIVE) U Benzodiazepines Scrn (NEGATIVE) U Cocaine Metab Screen (NEGATIVE) U Marijuana (THC) Screen (NEGATIVE) Vernon Results last 24 hrs: Microbiology 09/13/16 08:24 Stool Occult Blood (VERNON) - Final Stool / Feces NEGATIVE OCCULT BLOOD Med Orders - Current: Current Medications Acetaminophen (Tylenol) 650 mg PO Q4H PRN PRN Reason: Pain (Mild 1-3)/fever Albuterol (Proventil Neb Soln) 2.5 mg NEB Q4H PRN PRN Reason: Shortness Of Breath/wheezing Alprazolam (Xanax) 1 mg PO BID [facility] Last Admin: 09/13/16 09:52 Dose: 1 mg Bisacodyl (Dulcolax) 5 mg PO DAILY PRN PRN Reason: Constipation Docusate Sodium (Colace) 100 mg PO BID PRN PRN Reason: Constipation Sodium Chloride (Normal Saline) 1,000 mls @ 125 mls/hr IV ASDIRECTED [facility] Last Admin: 09/13/16 10:03 Dose: 125 mls/hr Lorazepam (Ativan) 1 mg IV Q6H PRN PRN Reason: Nausea/Vomiting Last Admin: 09/13/16 06:39 Dose: 1 mg Morphine Sulfate (Morphine) 2 mg IVPUSH Q2H PRN PRN Reason: Pain (severe 7-10) Last Admin: 09/13/16 09:37 Dose: 2 mg Nicotine (Habitrol) 21 mg TRDERM DAILY [facility] Last Admin: 09/13/16 09:41 Dose: 21 mg Ondansetron HCl (Zofran Odt) 4 mg PO Q6H PRN PRN Reason: Nausea able to take PO Oxycodone HCl (Oxycodone) 5 mg PO Q4H PRN PRN Reason: Pain (moderate 4-6) Pantoprazole Sodium (Protonix Iv) 40 mg IV Q12H [facility] Last Admin: 09/13/16 08:43 Dose: 40 mg Phenobarbital (Phenobarbital) 97.2 mg PO BID [facility] Last Admin: 09/13/16 09:51 Dose: 97.2 mg Phenytoin Sodium (Phenytoin) 200 mg PO BID [facility] Last Admin: 09/13/16 09:41 Dose: 200 mg Zolpidem Tartrate (Ambien) 5 mg PO BEDTIME PRN PRN Reason: Sleep Discontinued Medications Sodium Chloride (Normal Saline) 1,000 mls @ 250 mls/hr IV ASDIRECTED [facility] Last Admin: 09/13/16 04:31 Dose: 250 mls/hr Lidocaine HCl (Xylocaine 2% Jelly) Confirm Administered Dose 10 ml .ROUTE .STK- MED ONE Stop: 09/13/16 05:11 Last Admin: 09/13/16 05:23 Dose: Not Given Lidocaine HCl (Xylocaine 2% Jelly) 10 ml MUCMEM ONETIME ONE Stop: 09/13/16 05:21 Last Admin: 09/13/16 05:23 Dose: 10 ml Morphine Sulfate (Morphine) 2 mg IVPUSH ONETIME ONE Stop: 09/13/16 05:27 Last Admin: 09/13/16 05:32 Dose: 2 mg Ondansetron HCl (Zofran) 4 mg IVPUSH ONETIME ONE Stop: 09/13/16 05:29 Last Admin: 09/13/16 05:32 Dose: 4 mg Sodium Chloride (Saline Flush) 10 ml FLUSH ASDIRECTED PRN PRN Reason: Keep Vein Open Last Admin: 09/13/16 04:31 Dose: 10 ml - Exam Quality Assessment: DVT prophylaxis General: lethargic Lungs: Clear to auscultation, Normal respiratory effort, Decreased breath sounds Cardiovascular: Regular Rate, Regular Rhythm, No Murmurs Abdomen: bowel sounds present, soft, no tenderness, no distension Extremities: no edema Skin: warm, dry, intact - Problem List Review Problem List Initiated/Reviewed/Updated: Yes - My Orders Last 24 Hours: My Active Orders 09/14/16 05:00 CBC WITH AUTO DIFF [HEME] Timed COMPREHENSIVE METABOLIC PN,CMP [CHEM] Timed MAGNESIUM [CHEM] Timed - Plan Plan:: ASSESSMENT AND PLAN LOSS OF CONSCIOUSNESS-patient was found early this morning at the bottom of the stairs, and at that time was unconscious. Question as to whether he had fallen and experienced a head injury with loss of consciousness versus a seizure. Patient himself is not able to provide further history concerning the events. He apparently does have some past history of seizure disorder, as well as chronic alcohol use. Significant acidosis present on arrival would suggest probable seizure. Acidosis has now resolved based on followup laboratory studies. Other labs have been unremarkable, CT scan of the head and cervical spine showed no evidence of acute fracture or injury. -Admit to [address] [place] [address] for further monitoring -Telemetry monitoring -IV fluids for rehydration NS at 125 mL per hour -Neuro checks every 4 hours -Seizure precautions -Monitor closely for any evidence of alcohol withdrawal HISTORY OF CHRONIC ALCOHOL USE APPARENT RECENT DIAGNOSIS OF MESOTHELIOMA AND THYROID CARCINOMA -Obtain records for review Maintenance issues -Nutrition: Regular diet -Chavarria catheter; removed -tobacco ; apply Nicotine patch daily 21mg -GI prophalaxis; Prontix 40mg iv CODE STATUS: Full Admission status: Admit to [address] [place] [address] Admission justification. This patient will be admitted for inpatient services and is medically appropriate meeting medical necessity for inpatient admission as outlined in my documentation. I reasonably expect the patient will require inpatient services that span. Time over 2 midnights. I reasonably expect this patient to be discharged or transferred within 96 hours after admission to the critical access hospital. Disposition; home with Daughter Leonie or Assisted/[facility] facility Primary care provider: CORNELIUS Buckley
[2016-09-13] MEDS: Enoxaparin 40 MG/0.4 ML Syringe SUBCUT SCH (18:36)
--- NOTE | 2016-09-13 21:47 | PCM.SN ---
- Free Text/Narrative Note: time 21:15 call from [address] [place] [address]; Mr. Degroot and his daughter want to rescind DNR/DNI code status to full code a; Code status updated p; change from DNR/DNI to FULL CODE.
[2016-09-13] MEDS: Acetaminophen/HYDROcodone 325-10 MG Tab PO PRN (21:54)
[2016-09-14] MEDS: Morphine 2 MG/ML Syringe IVPUSH PRN ×8 (02:03→20:45)
[2016-09-14] MEDS: Acetaminophen/HYDROcodone 325-10 MG Tab PO PRN ×3 (05:45→18:37)
[2016-09-14] MEDS: Pantoprazole 40 MG Vial IV SCH (08:34)
[2016-09-14] MEDS: PHENobarbital 32.4 MG Tab PO SCH ×2 (09:04→20:52)
[2016-09-14] MEDS: Nicotine 21 MG/24 Hr Patch TRDERM SCH (09:04)
[2016-09-14] MEDS: Phenytoin 100 MG Cap.ER PO SCH ×2 (09:04→20:53)
[2016-09-14] MEDS: ALPRAZolam 0.5 MG Tab PO SCH ×2 (09:07→20:55)
--- NOTE | 2016-09-14 11:18 | PCM.PN ---
- General Info Date of Service: 09/14/16 Functional Status: Reports: pain controlled, tolerating diet - Review of Systems General: Reports: Weakness. Denies: Fever, Chills Pulmonary: Reports: no symptoms Cardiovascular: Reports: No Symptoms Gastrointestinal: Reports: No symptoms Systems Review Comment:: Mr. Degroot is shown improvement over the past 24 hours, he is much more alert and conversant than he had been yesterday. He is very weak and has marked difficulty with ambulation secondary to some weakness in his left leg. He states that this is chronic and has been present for the past 3 years. He confirms that he's had a diagnosis of mesothelioma, it sounds like this is based on previous CT scan, he denies ever having had a biopsy to confirm the diagnosis. He also has had a diagnosis of thyroid carcinoma, he states that he is thyroid gland was biopsied in [facility]. We're in the process of trying to obtain further records for review. - Patient Data Vitals - most recent: Last Vital Signs Temp 97.7 F 09/14/16 07:20 Pulse 70 09/14/16 07:20 Resp 16 09/14/16 07:20 BP 115/71 09/14/16 07:20 Pulse Ox 98 09/14/16 07:20 Weight - most recent: 121 lb 15.99 oz I&O - last 24 hours: Intake & Output 09/13/16 09/14/16 09/14/16 22:59 06:59 14:59 Intake Total 1973 1066 600 Output Total 500 775 450 Balance 1473 291 150 Lab Results last 24 hrs: Laboratory Results - last 24 hr 09/13/16 09/14/16 09/14/16 Range/Units 11:25 05:45 05:45 WBC 5.1 4.3 L (4.5-11.0) K/uL RBC 3.53 L 3.44 L (4.30-5.90) M/uL Hgb 12.1 12.0 (12.0-15.0) g/dL Hct 36.0 L 34.9 L (40.0-54.0) % MCV 102 H 102 H (80-98) fL MCH 34 H 35 H (27-31) pg MCHC 34 34 (32-36) % Plt Count 131 L 111 L (150-400) K/uL Neut % (Auto) 57 41 (36-66) % Lymph % (Auto) 29 44 (24-44) % [place] % (Auto) 11 H 10 H (2-6) % Eos % (Auto) 2 4 (2-4) % Baso % (Auto) 1 1 (0-1) % Sodium 144 (140-148) mmol/L Potassium 3.9 (3.6-5.2) mmol/L Chloride 109 H (100-108) mmol/L Carbon Dioxide 28 D (21-32) mmol/L Anion Gap 10.9 (5.0-14.0) mmol/L BUN 8 (7-18) mg/dL Creatinine 1.3 (0.8-1.3) mg/dL Est Cr Clr Drug Dosing 43.75 mL/min Estimated GFR (MDRD) 55 L (>60) Glucose 83 (74-106) mg/dL Calcium 7.5 L (8.5-10.1) mg/dL Magnesium 1.8 (1.8-2.4) mg/dL Total Bilirubin 0.4 (0.2-1.0) mg/dL AST 23 (15-37) U/L ALT 27 (12-78) U/L Alkaline Phosphatase 65 (46-116) U/L Total Protein 5.0 L (6.4-8.2) g/dL Albumin 2.9 L (3.4-5.0) g/dL Globulin 2.1 L (2.3-3.5) g/dL Albumin/Globulin Ratio 1.4 (1.2-2.2) Vernon Results last 24 hrs: Microbiology 09/13/16 08:24 Stool Occult Blood (VERNON) - Final Stool / Feces NEGATIVE OCCULT BLOOD Med Orders - Current: Current Medications Acetaminophen (Tylenol) 650 mg PO Q4H PRN PRN Reason: Pain (Mild 1-3)/fever Last Admin: 09/14/16 00:00 Dose: 650 mg Hydrocodone Bitart/Acetaminophen ([place] 325-10 Mg) 1 tab PO Q6H PRN PRN Reason: Pain (moderate 4-6) Last Admin: 09/14/16 05:45 Dose: 1 tab Albuterol (Proventil Neb Soln) 2.5 mg NEB Q4H PRN PRN Reason: Shortness Of Breath/wheezing Alprazolam (Xanax) 1 mg PO BID [facility] Last Admin: 09/14/16 09:07 Dose: 1 mg Bisacodyl (Dulcolax) 5 mg PO DAILY PRN PRN Reason: Constipation Docusate Sodium (Colace) 100 mg PO BID PRN PRN Reason: Constipation Enoxaparin Sodium (Lovenox) 40 mg SUBCUT Q24H [facility] Last Admin: 09/13/16 18:36 Dose: 40 mg Lorazepam (Ativan) 1 mg IV Q6H PRN PRN Reason: Nausea/Vomiting Last Admin: 09/13/16 06:39 Dose: 1 mg Morphine Sulfate (Morphine) 2 mg IVPUSH Q2H PRN PRN Reason: Pain (severe 7-10) Last Admin: 09/14/16 11:02 Dose: 2 mg Nicotine (Habitrol) 21 mg TRDERM DAILY [facility] Last Admin: 09/14/16 09:04 Dose: 21 mg Ondansetron HCl (Zofran Odt) 4 mg PO Q6H PRN PRN Reason: Nausea able to take PO [facility]op[facility]) [facility] Phenobarbital (Phenobarbital) 97.2 mg PO BID [facility] Last Admin: 09/14/16 09:04 Dose: 97.2 mg Phenytoin Sodium (Phenytoin) 200 mg PO BID [facility] Last Admin: 09/14/16 09:04 Dose: 200 mg Zolpidem Tartrate (Ambien) 5 mg PO BEDTIME PRN PRN Reason: Sleep Last Admin: 09/14/16 00:00 Dose: 5 mg Discontinued Medications Sodium Chloride (Normal Saline) 1,000 mls @ 250 mls/hr IV ASDIRECTED [facility] Last Admin: 09/13/16 04:31 Dose: 250 mls/hr Sodium Chloride (Normal Saline) 1,000 mls @ 125 mls/hr IV ASDIRECTED [facility] Last Admin: 09/13/16 10:03 Dose: 125 mls/hr Sodium Chloride (Normal Saline) 1,000 mls @ 50 mls/hr IV ASDIRECTED [facility] Last Admin: 09/13/16 20:52 Dose: 50 mls/hr Lidocaine HCl (Xylocaine 2% Jelly) Confirm Administered Dose 10 ml [facility] Stop: 09/13/16 05:11 Last Admin: 09/13/16 05:23 Dose: Not Given Lidocaine HCl (Xylocaine 2% Jelly) 10 ml MUCMEM ONETIME ONE Stop: 09/13/16 05:21 Last Admin: 09/13/16 05:23 Dose: 10 ml Morphine Sulfate (Morphine) 2 mg IVPUSH ONETIME ONE Stop: 09/13/16 05:27 Last Admin: 09/13/16 05:32 Dose: 2 mg Ondansetron HCl (Zofran) 4 mg IVPUSH ONETIME ONE Stop: 09/13/16 05:29 Last Admin: 09/13/16 05:32 Dose: 4 mg Oxycodone HCl (Oxycodone) 5 mg PO Q4H PRN PRN Reason: Pain (moderate 4-6) Last Admin: 09/13/16 16:08 Dose: 5 mg Pantoprazole Sodium (Protonix Iv) 40 mg IV Q12H [facility] Last Admin: 09/14/16 08:34 Dose: 40 mg Sodium Chloride (Saline Flush) 10 ml FLUSH ASDIRECTED PRN PRN Reason: Keep Vein Open Last Admin: 09/13/16 04:31 Dose: 10 ml - Exam Quality Assessment: DVT prophylaxis General: alert, oriented, cooperative Lungs: Clear to auscultation, Normal respiratory effort Cardiovascular: Regular Rate, Regular Rhythm, No Murmurs Abdomen: bowel sounds present, soft, no tenderness, no distension Extremities: no edema Skin: warm, dry, intact, ecchymosis - Problem List Review Problem List Initiated/Reviewed/Updated: Yes - My Orders Last 24 Hours: My Active Orders 09/13/16 15:20 Neuro Check [RC] Q4HR Remove Chavarria Catheter [Urinary Catheter Removal] [RC] Per Unit Routine Seizure Precautions [OM.PC] Routine 09/13/16 16:00 Enoxaparin [Lovenox] 40 mg SUBCUT Q24H 09/13/16 22:00 Acetaminophen/HYDROcodone [[place] 325-10 MG] 1 tab PO Q6H PRN 09/13/16 Dinner Regular Diet [DIET] 09/14/16 11:07 Chest Abdomen Pelvis w Cont [CT] Urgent 09/14/16 11:13 Convert IV to Saline Lock [OM.PC] Routine - Plan Plan:: ASSESSMENT AND PLAN LOSS OF CONSCIOUSNESS-he has improved significantly since admission, currently alert and oriented. No evidence thus far of significant alcohol withdrawal -Admit to [address] [place] [address] for further monitoring -Saline lock IV -Discontinue neuro checks -Seizure precautions -Monitor closely for any evidence of alcohol withdrawal HISTORY OF CHRONIC ALCOHOL USE APPARENT RECENT DIAGNOSIS OF MESOTHELIOMA AND THYROID CARCINOMA -In the process of obtaining records for further review -CT scan of the chest abdomen and pelvis with IV contrast for followup of metastatic mesothelioma CHRONIC BACK PAIN SECONDARY TO SEVERAL SPINAL COMPRESSION FRACTURES -Continue outpatient narcotic therapy Maintenance issues -Nutrition: Regular diet -Chavarria catheter; removed -tobacco ; apply Nicotine patch daily 21mg -GI prophalaxis; Prontix 40mg iv CODE STATUS: Full Admission status: Admit to [address] [place] [address] Admission justification. This patient will be admitted for inpatient services and is medically appropriate meeting medical necessity for inpatient admission as outlined in my documentation. I reasonably expect the patient will require inpatient services that span. Time over 2 midnights. I reasonably expect this patient to be discharged or transferred within 96 hours after admission to the critical access hospital. Disposition; home with Daughter Leonie or Assisted/[facility] facility Primary care provider: CORNELIUS Buckley
[2016-09-14] MEDS ORDERED: Iopamidol 612 MG/ML 100 ML Bottle IV PRN (13:47)
[2016-09-14] MEDS ORDERED: Sodium Chloride 0.9% 10 ML SDV FLUSH ONE (13:47)
[2016-09-14] MEDS ORDERED: Sodium Chloride 0.9% 100 ML IV SCH (14:00)
[2016-09-14] MEDS: Sodium Chloride 0.9% 10 ML Syringe FLUSH PRN (14:13)
--- NOTE | 2016-09-14 14:48 | CT ---
CT chest, abdomen and pelvis. Indication: History of metastatic mesothelioma Total DLP 292 Findings: Heterogeneous left lobe of the thyroid gland. Consider ultrasound follow-up. Mildly enlarg ed right precarinal lymph node 10 mm in short axis. Artery calcifications. Calcific granuloma medial superior segment right lower lobe. Tiny 2 mm nodules density peripherally right middle lobe. Modera te emphysematous change. There are calcified pleural plaques most notably above the right hemidiaphr agm however there is no soft tissue component to these. Old left rib fractures. Liver within normal limits. Gallstones. Bilateral adrenal glands are within normal limits. Pancreas within normal limits. Spleen within normal limits. Bladder is unremarkable. Atherosclerotic nonaneur ysmal aorta. Large amount of fecal residual. The appendix is nonvisualized on this examination. Ther e is mesenteric and mild body wall edema. No enlarged adenopathy within the abdomen or pelvis. Extra renal pelvis bilaterally. AVN of the right femoral head. Vertebroplasty change T12 vertebral body. Impression: 1. Calcified pleural plaques within the chest. This can indicate prior asbestos exposure. No soft ti ssue component. 2. No enlarged adenopathy within the abdomen or pelvis. 3. Large amount of fecal residual. 4. There is a mildly enlarged precarinal lymph node. Would consider CT follow-up in 6 months conside ring history. Tiny pulmonary nodules can be reevaluated at this time as well.
[2016-09-14] MEDS: Enoxaparin 40 MG/0.4 ML Syringe SUBCUT SCH (17:10)
[2016-09-14] MEDS: Pantoprazole 40 MG Tab.CR PO SCH (17:10)
[2016-09-14] MEDS: Zolpidem 5 MG Tab PO PRN ×2 (22:29)
[2016-09-14] MEDS: LORazepam 2 MG/ML MDV IV PRN (22:29)
[2016-09-15] MEDS: Acetaminophen/HYDROcodone 325-10 MG Tab PO PRN ×4 (00:59→20:34)
[2016-09-15] MEDS: Morphine 2 MG/ML Syringe IVPUSH PRN ×7 (01:00→22:12)
[2016-09-15] MEDS: Pantoprazole 40 MG Tab.CR PO SCH (08:20)
[2016-09-15] MEDS: Nicotine 21 MG/24 Hr Patch TRDERM SCH (09:27)
[2016-09-15] MEDS: Phenytoin 100 MG Cap.ER PO SCH ×2 (09:27→20:34)
[2016-09-15] MEDS: PHENobarbital 32.4 MG Tab PO SCH ×2 (09:43→20:43)
[2016-09-15] MEDS: ALPRAZolam 0.5 MG Tab PO SCH ×2 (09:43→20:34)
[2016-09-15] MEDS: Docusate Sodium 100 MG Cap PO PRN (11:37)
[2016-09-15] MEDS: Bisacodyl 5 MG Tab PO PRN (11:37)
--- NOTE | 2016-09-15 14:59 | PCM.PN ---
- General Info Date of Service: 09/15/16 Functional Status: Reports: tolerating diet, ambulating, urinating - Review of Systems General: Reports: Weakness. Denies: Fever, Chills Pulmonary: Reports: no symptoms Cardiovascular: Reports: No Symptoms Gastrointestinal: Reports: No symptoms Systems Review Comment:: This patient has been stable over the past 24 hours, overall strength seems to be slowly improving. Vital signs have been stable and he has remained afebrile. - Patient Data Vitals - most recent: Last Vital Signs Temp 95.3 F L 09/15/16 11:35 Pulse 70 09/15/16 11:35 Resp 18 09/15/16 11:35 BP 124/64 09/15/16 11:35 Pulse Ox 98 09/15/16 11:35 Weight - most recent: 121 lb 15.99 oz I&O - last 24 hours: Intake & Output 09/14/16 09/15/16 09/15/16 22:59 06:59 14:59 Intake Total 470 Output Total 1700 200 150 Balance -1230 -200 -150 Med Orders - Current: Current Medications Acetaminophen (Tylenol) 650 mg PO Q4H PRN PRN Reason: Pain (Mild 1-3)/fever Last Admin: 09/14/16 00:00 Dose: 650 mg Albuterol (Proventil Neb Soln) 2.5 mg NEB Q4H PRN PRN Reason: Shortness Of Breath/wheezing Alprazolam (Xanax) 1 mg PO BID [facility] Last Admin: 09/15/16 09:43 Dose: 1 mg Bisacodyl (Dulcolax) 5 mg PO DAILY PRN PRN Reason: Constipation Last Admin: 09/15/16 11:37 Dose: 5 mg Docusate Sodium (Colace) 100 mg PO BID PRN PRN Reason: Constipation Last Admin: 09/15/16 11:37 Dose: 100 mg Enoxaparin Sodium (Lovenox) 40 mg SUBCUT Q24H [facility] Last Admin: 09/14/16 17:10 Dose: 40 mg Lorazepam (Ativan) 1 mg IV Q6H PRN PRN Reason: Nausea/Vomiting Last Admin: 09/14/16 22:29 Dose: 1 mg Nicotine (Habitrol) 21 mg TRDERM DAILY [facility] Last Admin: 09/15/16 09:27 Dose: 21 mg Ondansetron HCl (Zofran Odt) 4 mg PO Q6H PRN PRN Reason: Nausea able to take PO [facility]oprazole [facility]) [facility] Last Admin: 09/15/16 08:20 Dose: 40 mg Phenobarbital (Phenobarbital) 97.2 mg PO BID [facility] Last Admin: 09/15/16 09:43 Dose: 97.2 mg Phenytoin Sodium (Phenytoin) 200 mg PO BID [facility] Last Admin: 09/15/16 09:27 Dose: 200 mg Zolpidem Tartrate (Ambien) 5 mg PO BEDTIME PRN PRN Reason: Sleep Last Admin: 09/14/16 22:29 Dose: 5 mg Discontinued Medications Hydrocodone Bitart/Acetaminophen ([place] 325-10 Mg) 1 tab PO Q6H PRN PRN Reason: Pain (moderate 4-6) Last Admin: 09/15/16 09:24 Dose: 1 tab Sodium Chloride (Normal Saline) 1,000 mls @ 250 mls/hr IV ASDIRECTED [facility] Last Admin: 09/13/16 04:31 Dose: 250 mls/hr Sodium Chloride (Normal Saline) 1,000 mls @ 125 mls/hr IV ASDIRECTED [facility] Last Admin: 09/13/16 10:03 Dose: 125 mls/hr Sodium Chloride (Normal Saline) 1,000 mls @ 50 mls/hr IV ASDIRECTED [facility] Last Admin: 09/13/16 20:52 Dose: 50 mls/hr Sodium Chloride (Normal Saline) 100 mls @ 3.5 mls/sec IV ASDIRECTED [facility] Stop: 09/14/16 14:30 Last Admin: 09/14/16 14:13 Dose: 3.5 mls/sec Iopamidol (Isovue-300 (61%)) 100 ml IV . DIRECTED PRN PRN Reason: RADIOLOGY EXAM Stop: 09/14/16 14:30 Last Admin: 09/14/16 14:13 Dose: 100 ml Lidocaine HCl (Xylocaine 2% Jelly) Confirm Administered Dose 10 ml .ROUTE .STK- MED ONE Stop: 09/13/16 05:11 Last Admin: 09/13/16 05:23 Dose: Not Given Lidocaine HCl (Xylocaine 2% Jelly) 10 ml MUCMEM ONETIME ONE Stop: 09/13/16 05:21 Last Admin: 09/13/16 05:23 Dose: 10 ml Morphine Sulfate (Morphine) 2 mg IVPUSH ONETIME ONE Stop: 09/13/16 05:27 Last Admin: 09/13/16 05:32 Dose: 2 mg Morphine Sulfate (Morphine) 2 mg IVPUSH Q2H PRN PRN Reason: Pain (severe 7-10) Last Admin: 09/15/16 14:40 Dose: 2 mg Ondansetron HCl (Zofran) 4 mg IVPUSH ONETIME ONE Stop: 09/13/16 05:29 Last Admin: 09/13/16 05:32 Dose: 4 mg Oxycodone HCl (Oxycodone) 5 mg PO Q4H PRN PRN Reason: Pain (moderate 4-6) Last Admin: 09/13/16 16:08 Dose: 5 mg Pantoprazole Sodium (Protonix Iv) 40 mg IV Q12H [facility] Last Admin: 09/14/16 08:34 Dose: 40 mg Sodium Chloride (Saline Flush) 10 ml FLUSH ASDIRECTED PRN PRN Reason: Keep Vein Open Last Admin: 09/14/16 14:13 Dose: 10 ml Sodium Chloride (Normal Saline) 10 ml FLUSH ONETIME ONE Stop: 09/14/16 13:48 Last Admin: 09/14/16 19:28 Dose: Not Given - Exam Quality Assessment: DVT prophylaxis General: alert, oriented, cooperative, mild distress Lungs: Clear to auscultation, Normal respiratory effort Cardiovascular: Regular Rate, Regular Rhythm, No Murmurs Abdomen: bowel sounds present, soft, no tenderness, no distension Extremities: no edema Skin: warm, dry, intact - Problem List Review Problem List Initiated/Reviewed/Updated: Yes - My Orders Last 24 Hours: My Active Orders 09/15/16 14:44 Acetaminophen/HYDROcodone [[place] 325-10 MG] 1 tab PO Q4H PRN 09/15/16 14:45 Morphine 4 mg IVPUSH Q2H PRN - Plan Plan:: ASSESSMENT AND PLAN LOSS OF CONSCIOUSNESS-he has improved significantly since admission, currently alert and oriented. No evidence thus far of significant alcohol withdrawal -Saline lock IV -Monitor closely for any evidence of alcohol withdrawal HISTORY OF CHRONIC ALCOHOL USE HISTORY OF ASBESTOS EXPOSURE-CT scan of the chest abdomen and pelvis obtained yesterday with IV contrast shows evidence of calcified pleural plaques consistent with previous asbestos exposure. There was no evidence of underlying mesothelioma or metastatic disease -In the process of obtaining records for further review -Schedule outpatient followup with pulmonary medicine THYROID CARCINOMA -Outpatient followup with oncology and endocrinology CHRONIC BACK PAIN SECONDARY TO SEVERAL SPINAL COMPRESSION FRACTURES -Continue outpatient narcotic therapy Maintenance issues -Nutrition: Regular diet -Chavarria catheter; removed -tobacco ; apply Nicotine patch daily 21mg -GI prophalaxis; Prontix 40mg by mouth daily CODE STATUS: Full Admission status: Admit to [address] [place] [address] Admission justification. This patient will be admitted for inpatient services and is medically appropriate meeting medical necessity for inpatient admission as outlined in my documentation. I reasonably expect the patient will require inpatient services that span. Time over 2 midnights. I reasonably expect this patient to be discharged or transferred within 96 hours after admission to the critical access hospital. Disposition; home with [facility] or Assisted/senior care facility Primary care provider: CORNELIUS Buckley
[2016-09-15] MEDS ORDERED: Sodium Phosphate,Monobasic/Sodium Phosphate,Dibasic Enema 133 ML Bottle RECTAL PRN (15:39)
[2016-09-15] MEDS ORDERED: Bisacodyl 10 MG Supp RECTAL PRN (15:39)
[2016-09-15] MEDS ORDERED: Polyethylene Glycol 3350 Powder 17 GM Packet PO PRN (15:39)
[2016-09-15] MEDS: Enoxaparin 40 MG/0.4 ML Syringe SUBCUT SCH (15:42)
[2016-09-16] MEDS: Acetaminophen/HYDROcodone 325-10 MG Tab PO PRN ×5 (00:32→20:43)
[2016-09-16] MEDS: LORazepam 2 MG/ML MDV IV PRN (00:42)
[2016-09-16] MEDS: Morphine 2 MG/ML Syringe IVPUSH PRN ×7 (03:59→23:14)
[2016-09-16] MEDS: Phenytoin 100 MG Cap.ER PO SCH ×2 (09:00→20:44)
[2016-09-16] MEDS: Pantoprazole 40 MG Tab.CR PO SCH (09:00)
[2016-09-16] MEDS: PHENobarbital 32.4 MG Tab PO SCH ×2 (09:02→20:44)
[2016-09-16] MEDS: Nicotine 21 MG/24 Hr Patch TRDERM SCH (09:02)
[2016-09-16] MEDS: ALPRAZolam 0.5 MG Tab PO SCH ×2 (09:30→20:44)
--- NOTE | 2016-09-16 13:46 | PCM.PN ---
- General Info Date of Service: 09/16/16 Functional Status: Reports: tolerating diet, ambulating, urinating - Review of Systems General: Reports: Weakness. Denies: Fever, Chills Pulmonary: Reports: no symptoms Cardiovascular: Reports: No Symptoms Gastrointestinal: Reports: No symptoms Psychiatric: Reports: depression Systems Review Comment:: Mr. Degroot has remained fairly stable over the past 24 hours, continues to experience ongoing difficulty with back pain which he's had for some time. Vital signs have been stable and he is remained afebrile. [facility]wait[facility] tomorrow. - Patient Data Vitals - most recent: Last Vital Signs Temp 97.2 F 09/16/16 11:27 Pulse 64 09/16/16 11:27 Resp 16 09/16/16 11:27 BP 114/61 09/16/16 11:27 Pulse Ox 99 09/16/16 11:27 Weight - most recent: 121 lb 15.99 oz I&O - last 24 hours: Intake & Output 09/15/16 09/16/16 09/16/16 22:59 06:59 14:59 Intake Total 940 240 Output Total 900 900 400 Balance 40 -660 -400 Med Orders - Current: Current Medications Acetaminophen (Tylenol) 650 mg PO Q4H PRN PRN Reason: Pain (Mild 1-3)/fever Last Admin: 09/14/16 00:00 Dose: 650 mg Hydrocodone Bitart/Acetaminophen ([place] 325-10 Mg) 1 tab PO Q4H PRN PRN Reason: Pain (moderate 4-6) Last Admin: 09/16/16 11:08 Dose: 1 tab Albuterol (Proventil Neb Soln) 2.5 mg NEB Q4H PRN PRN Reason: Shortness Of Breath/wheezing Alprazolam (Xanax) 1 mg PO BID [facility] Last Admin: 09/16/16 09:30 Dose: 1 mg Bisacodyl (Dulcolax) 5 mg PO DAILY PRN PRN Reason: Constipation Last Admin: 09/15/16 11:37 Dose: 5 mg Bisacodyl (Dulcolax) 10 mg RECTAL BID PRN PRN Reason: Constipation Citalopram Hydrobromide (Celexa) 20 mg PO DAILY [facility] Docusate Sodium (Colace) 100 mg PO BID PRN PRN Reason: Constipation Last Admin: 09/15/16 11:37 Dose: 100 mg Enoxaparin Sodium (Lovenox) 40 mg SUBCUT Q24H [facility] Last Admin: 09/15/16 15:42 Dose: 40 mg Lorazepam (Ativan) 1 mg IV Q6H PRN PRN Reason: Nausea/Vomiting Last Admin: 09/16/16 00:42 Dose: 1 mg Morphine Sulfate (Morphine) 4 mg IVPUSH Q2H PRN PRN Reason: Pain (severe 7-10) Last Admin: 09/16/16 13:10 Dose: 4 mg Nicotine (Habitrol) 21 mg TRDERM DAILY [facility] Last Admin: 09/16/16 09:02 Dose: 21 mg Ondansetron HCl (Zofran Odt) 4 mg PO Q6H PRN PRN Reason: Nausea able to take PO Pantoprazole Sodium (Protonix) 40 mg PO DAILY [facility] Last Admin: 09/16/16 09:00 Dose: 40 mg Phenobarbital (Phenobarbital) 97.2 mg PO BID [facility] Last Admin: 09/16/16 09:02 Dose: 97.2 mg Phenytoin Sodium (Phenytoin) 200 mg PO BID [facility] Last Admin: 09/16/16 09:00 Dose: 200 mg Polyethylene Glycol (Miralax) 17 gm PO TID PRN PRN Reason: Constipation Sodium Biphosphate/Sodium Phosphate (Fleet Enema) 133 ml RECTAL ONETIME PRN PRN Reason: Constipation Zolpidem Tartrate (Ambien) 5 mg PO BEDTIME PRN PRN Reason: Sleep Last Admin: 09/14/16 22:29 Dose: 5 mg Discontinued Medications Hydrocodone Bitart/Acetaminophen ([place] 325-10 Mg) 1 tab PO Q6H PRN PRN Reason: Pain (moderate 4-6) Last Admin: 09/15/16 09:24 Dose: 1 tab Sodium Chloride (Normal Saline) 1,000 mls @ 250 mls/hr IV ASDIRECTED [facility] Last Admin: 09/13/16 04:31 Dose: 250 mls/hr Sodium Chloride (Normal Saline) 1,000 mls @ 125 mls/hr IV ASDIRECTED [facility] Last Admin: 09/13/16 10:03 Dose: 125 mls/hr Sodium Chloride (Normal Saline) 1,000 mls @ 50 mls/hr IV ASDIRECTED [facility] Last Admin: 09/13/16 20:52 Dose: 50 mls/hr Sodium Chloride (Normal Saline) 100 mls @ 3.5 mls/sec IV ASDIRECTED [facility] Stop: 09/14/16 14:30 Last Admin: 09/14/16 14:13 Dose: 3.5 mls/sec Iopamidol (Isovue-300 (61%)) 100 ml IV . DIRECTED PRN PRN Reason: RADIOLOGY EXAM Stop: 09/14/16 14:30 Last Admin: 09/14/16 14:13 Dose: 100 ml Lidocaine HCl (Xylocaine 2% Jelly) Confirm Administered Dose 10 ml .ROUTE .STK- MED ONE Stop: 09/13/16 05:11 Last Admin: 09/13/16 05:23 Dose: Not Given Lidocaine HCl (Xylocaine 2% Jelly) 10 ml MUCMEM ONETIME ONE Stop: 09/13/16 05:21 Last Admin: 09/13/16 05:23 Dose: 10 ml Morphine Sulfate (Morphine) 2 mg IVPUSH ONETIME ONE Stop: 09/13/16 05:27 Last Admin: 09/13/16 05:32 Dose: 2 mg Morphine Sulfate (Morphine) 2 mg IVPUSH Q2H PRN PRN Reason: Pain (severe 7-10) Last Admin: 09/15/16 14:40 Dose: 2 mg Ondansetron HCl (Zofran) 4 mg IVPUSH ONETIME ONE Stop: 09/13/16 05:29 Last Admin: 09/13/16 05:32 Dose: 4 mg Oxycodone HCl (Oxycodone) 5 mg PO Q4H PRN PRN Reason: Pain (moderate 4-6) Last Admin: 09/13/16 16:08 Dose: 5 mg Pantoprazole Sodium (Protonix Iv) 40 mg IV Q12H [facility] Last Admin: 09/14/16 08:34 Dose: 40 mg Pantoprazole Sodium (Protonix) 40 mg PO BIDAC [facility] Last Admin: 09/15/16 08:20 Dose: 40 mg Sodium Chloride (Saline Flush) 10 ml FLUSH ASDIRECTED PRN PRN Reason: Keep Vein Open Last Admin: 09/14/16 14:13 Dose: 10 ml Sodium Chloride (Normal Saline) 10 ml FLUSH ONETIME ONE Stop: 09/14/16 13:48 Last Admin: 09/14/16 19:28 Dose: Not Given - Exam General: alert, oriented, cooperative, mild distress Lungs: Clear to auscultation, Normal respiratory effort Cardiovascular: Regular Rate, Regular Rhythm, No Murmurs Abdomen: bowel sounds present, soft, no tenderness, no distension Extremities: no edema Skin: warm, dry, intact - Problem List & Annotations (1) Calcified pleural plaque on chest x-ray SNOMED Code(s): 27665929 Code(s): J94.8 - OTHER SPECIFIED PLEURAL CONDITIONS Status: Acute Current Visit: Yes (2) Altered mental status SNOMED Code(s): 868994002 Code(s): R41.82 - ALTERED MENTAL STATUS, UNSPECIFIED Status: Acute Priority: High Current Visit: Yes Qualifiers: Altered mental status type: somnolence Qualified Code(s): R40.0 - Somnolence (3) Accident due to mechanical fall without injury SNOMED Code(s): 34073029976384 Code(s): W19.XXXA - UNSPECIFIED FALL, INITIAL ENCOUNTER Status: Acute Priority: High Current Visit: Yes Qualifiers: Encounter type: initial encounter Qualified Code(s): W19.XXXA - Unspecified fall, initial encounter (4) Chronic thoracic back pain SNOMED Code(s): 688012413 Code(s): M54.6 - PAIN IN THORACIC SPINE; G89.29 - OTHER CHRONIC PAIN Status : Chronic Current Visit: No Qualifiers: Back pain laterality: midline Qualified Code(s): M54.6 - Pain in thoracic spine; G89.29 - Other chronic pain (5) Thyroid cancer Status: Chronic Current Visit: Yes - Problem List Review Problem List Initiated/Reviewed/Updated: Yes - My Orders Last 24 Hours: My Active Orders 09/15/16 14:44 Acetaminophen/HYDROcodone [[place] 325-10 MG] 1 tab PO Q4H PRN 09/15/16 14:45 Morphine 4 mg IVPUSH Q2H PRN 09/15/16 15:39 Bisacodyl [Dulcolax] 10 mg RECTAL BID PRN Na Phos,M-B/Na Phos,DI-B [Fleet Enema] 133 ml RECTAL ONETIME PRN Polyethylene Glycol 3350 [MiraLAX] 17 gm PO TID PRN 09/16/16 09:00 Pantoprazole [Protonix] 40 mg PO DAILY 09/16/16 13:30 Citalopram [Celexa] 20 mg PO DAILY 09/16/16 13:38 Ready for Discharge [RC] PER UNIT ROUTINE - Plan Plan:: ASSESSMENT AND PLAN LOSS OF CONSCIOUSNESS-he has improved significantly since admission, currently alert and oriented. No evidence thus far of significant alcohol withdrawal -Saline lock IV -Monitor closely for any evidence of alcohol withdrawal HISTORY OF CHRONIC ALCOHOL USE HISTORY OF ASBESTOS EXPOSURE-CT scan of the chest abdomen and pelvis obtained with IV contrast shows evidence of calcified pleural plaques consistent with previous asbestos exposure. There was no evidence of underlying mesothelioma or metastatic disease -In the process of obtaining records for further review -Schedule outpatient followup with pulmonary medicine THYROID CARCINOMA -Outpatient followup with oncology and endocrinology DEPRESSION -Initiate antidepressant therapy with Celexa 20 mg by mouth daily CHRONIC BACK PAIN SECONDARY TO SEVERAL SPINAL COMPRESSION FRACTURES -Continue outpatient narcotic therapy Maintenance issues -Nutrition: Regular diet -Chavarria catheter; removed -tobacco ; apply Nicotine patch daily 21mg -GI prophalaxis; Prontix 40mg by mouth daily CODE STATUS: Full Admission status: Admit to [address] [place] [address] justification. This patient will be admitted for inpatient services and is medically appropriate meeting medical necessity for inpatient admission as outlined in my documentation. I reasonably expect the patient will require inpatient services that span. Time over 2 midnights. I reasonably expect this patient to be discharged or transferred within 96 hours after admission to the critical access hospital. Disposition; discharged to [facility] tomorrow a.m. Primary care provider: CORNELIUS Buckley
--- NOTE | 2016-09-16 13:58 | PCM.DCSUM1 ---
Discharge Summary - Hospital Course Brief History: Mr. Degroot is a 66-year-old gentleman who was admitted because of decreased level of consciousness following a fall at home. - Discharge Data Discharge Date: 09/17/16 Discharge Disposition: DC/Tfer to SNF 03 Condition: Fair - Discharge Diagnosis/Problem(s) (1) Calcified pleural plaque on chest x-ray SNOMED Code(s): 94558174 ICD Code: J94.8 - OTHER SPECIFIED PLEURAL CONDITIONS Status: Acute Current Visit: Yes (2) Altered mental status SNOMED Code(s): 226286685 ICD Code: R41.82 - ALTERED MENTAL STATUS, UNSPECIFIED Status: Acute Priority: High Current Visit: Yes Qualifiers: Altered mental status type: somnolence Qualified Code(s): R40.0 - Somnolence (3) Accident due to mechanical fall without injury SNOMED Code(s): 76180593721044 ICD Code: W19.XXXA - UNSPECIFIED FALL, INITIAL ENCOUNTER Status: Acute Priority: High Current Visit: Yes Qualifiers: Encounter type: initial encounter Qualified Code(s): W19.XXXA - Unspecified fall, initial encounter (4) Chronic thoracic back pain SNOMED Code(s): 408497234 ICD Code: M54.6 - PAIN IN THORACIC SPINE; G89.29 - OTHER CHRONIC PAIN Status: Chronic Current Visit: No Qualifiers: Back pain laterality: midline Qualified Code(s): M54.6 - Pain in thoracic spine; G89.29 - Other chronic pain (5) Thyroid cancer Status: Chronic Current Visit: Yes - Patient Summary/Data Consults: Consultations 09/13/16 06:20 Consult to Case Management [CONS] Routine Comment: Physician Instructions: Quantity: Reason for Consult: discharge planning 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 Special Instructions: relocated to [place] 3 days ago from [place] OT Evaluation and Treatment [CONS] Routine Please Evaluate and Treat. OT Reason for Consult: Discharge Planning This query below is only for informational purposes and is not editable. PT Evaluation and Treatment [CONS] Routine Please Evaluate and Treat. PT Reason for Consult: Strengthening This query below is only for informational purposes and is not editable. Hospital Course: This patient is a 66-year-old gentleman, he recently moved to this area from [place] to live with his daughter. He has had an ongoing history of chronic alcohol abuse as well as chronic back pain for which he's been treated with narcotics. During the middle of the night he apparently fell while trying to go up the stairs and was unconscious when the family found him. Does have a history of seizure disorder but denies that he had a seizure and strongly feels that he fell, hitting his head. On arrival in the emergency department he was semi-conscious and did undergo further evaluation including CT scan of the head and cervical spine. No evidence of acute fractures bleeding or other significant abnormalities were identified. He was admitted to the hospital for further care, initially received IV fluids for hydration. During the first 12 hours of his hospitalization he remained fairly lethargic, then slowly woke up and became more alert and interactive. He had no further episodes of lethargy or decreased level of consciousness during his hospital stay. Patient reports that he's been diagnosed with a thyroid carcinoma but has not had further evaluation or treatment with oncology. He also reported on admission that he had known metastatic mesothelioma. CT scan of the chest abdomen and pelvis was obtained for followup of a history of metastatic mesothelioma. Scan did show evidence of calcified pleural plaques consistent with asbestos exposure. There was no evidence of any soft tissue masses or evidence of metastatic disease including no bone lesions. Because of his ongoing chronic back pain he was treated with his usual narcotics as well as additional IV pain medication. Agent and his daughter both feel that he is having ongoing difficulty with depression and he was started on antidepressant therapy with Celexa 20 mg daily. Initially he was noted to have very profound weakness and marked difficulty with transfers and ambulation. Strength did seem to improve during his hospital stay but it was not felt that he was safe for independent ambulation. He will be discharged to snf for restorative physical therapy and occupational therapy. Activity will be as tolerated and he will resume his usual diet. Appointment will be made for him to establish primary care in this area within the next one to 2 weeks. He will require further subspecialty evaluation with pulmonology, endocrinology, and oncology. Daughter does have records from his previous evaluation was in [place]. - Patient Instructions Diet: Usual Diet as Tolerated Activity: As Tolerated Other/Special Instructions: Schedule primary care appointment in one to 2 weeks. - Discharge Plan Prescriptions/Med Rec: ALPRAZolam [Alprazolam] 1 mg PO BID #60 tablet Acetaminophen/HYDROcodone [[place] 325-10 MG] 1 tab PO Q4H #80 tablet Citalopram [Citalopram HBr] 20 mg PO DAILY #30 tablet Docusate Sodium [Colace] 100 mg PO BID #60 cap Nicotine [Habitrol] 21 mg TRDERM DAILY #30 patch PHENobarbital [Phenobarbital] 97.2 mg PO BID #60 tablet Pantoprazole [Protonix] 40 mg PO DAILY #30 tab.cr Phenytoin 200 mg PO BID #60 cap.er Home Medications: Home Meds ALPRAZolam [Alprazolam] 1 mg PO BID #60 tablet 09/16/16 [Rx] Acetaminophen/HYDROcodone [[place] 325-10 MG] 1 tab PO Q4H #80 tablet 09/16/16 [Rx ] Citalopram [Citalopram HBr] 20 mg PO DAILY #30 tablet 09/16/16 [Rx] Docusate Sodium [Colace] 100 mg PO BID #60 cap 09/16/16 [Rx] Nicotine [Habitrol] 21 mg TRDERM DAILY #30 patch 09/16/16 [Rx] PHENobarbital [Phenobarbital] 97.2 mg PO BID #60 tablet 09/16/16 [Rx] Pantoprazole [Protonix] 40 mg PO DAILY #30 tab.cr 09/16/16 [Rx] Phenytoin 200 mg PO BID #60 cap.er 09/16/16 [Rx] Referrals: Denis Ivy, REZA [Primary Care Provider] - - Patient Data Vitals - Most Recent: Last Vital Signs Temp 97.2 F 09/16/16 11:27 Pulse 64 09/16/16 11:27 Resp 16 09/16/16 11:27 BP 114/61 09/16/16 11:27 Pulse Ox 99 09/16/16 11:27 Weight - Most Recent: 121 lb 15.99 oz I&O - Last 24 hours: Intake & Output 09/15/16 09/16/16 09/16/16 22:59 06:59 14:59 Intake Total 940 240 Output Total 900 900 400 Balance 40 -660 -400 Med Orders - Current: Current Medications Acetaminophen (Tylenol) 650 mg PO Q4H PRN PRN Reason: Pain (Mild 1-3)/fever Last Admin: 09/14/16 00:00 Dose: 650 mg Hydrocodone Bitart/Acetaminophen ([place] 325-10 Mg) 1 tab PO Q4H PRN PRN Reason: Pain (moderate 4-6) Last Admin: 09/16/16 11:08 Dose: 1 tab Albuterol (Proventil Neb Soln) 2.5 mg NEB Q4H PRN PRN Reason: Shortness Of Breath/wheezing Alprazolam (Xanax) 1 mg PO BID [facility] Last Admin: 09/16/16 09:30 Dose: 1 mg Bisacodyl (Dulcolax) 5 mg PO DAILY PRN PRN Reason: Constipation Last Admin: 09/15/16 11:37 Dose: 5 mg Bisacodyl (Dulcolax) 10 mg RECTAL BID PRN PRN Reason: Constipation Citalopram Hydrobromide (Celexa) 20 mg PO DAILY [facility] Docusate Sodium (Colace) 100 mg PO BID PRN PRN Reason: Constipation Last Admin: 09/15/16 11:37 Dose: 100 mg Enoxaparin Sodium (Lovenox) 40 mg SUBCUT Q24H [facility] Last Admin: 09/15/16 15:42 Dose: 40 mg Lorazepam (Ativan) 1 mg IV Q6H PRN PRN Reason: Nausea/Vomiting Last Admin: 09/16/16 00:42 Dose: 1 mg Morphine Sulfate (Morphine) 4 mg IVPUSH Q2H PRN PRN Reason: Pain (severe 7-10) Last Admin: 09/16/16 13:10 Dose: 4 mg Nicotine (Habitrol) 21 mg TRDERM DAILY [facility] Last Admin: 09/16/16 09:02 Dose: 21 mg Ondansetron HCl (Zofran Odt) 4 mg PO Q6H PRN PRN Reason: Nausea able to take PO Pantoprazole Sodium (Protonix) 40 mg PO DAILY [facility] Last Admin: 09/16/16 09:00 Dose: 40 mg Phenobarbital (Phenobarbital) 97.2 mg PO BID [facility] Last Admin: 09/16/16 09:02 Dose: 97.2 mg Phenytoin Sodium (Phenytoin) 200 mg PO BID [facility] Last Admin: 09/16/16 09:00 Dose: 200 mg Polyethylene Glycol (Miralax) 17 gm PO TID PRN PRN Reason: Constipation Sodium Biphosphate/Sodium Phosphate (Fleet Enema) 133 ml RECTAL ONETIME PRN PRN Reason: Constipation Zolpidem Tartrate (Ambien) 5 mg PO BEDTIME PRN PRN Reason: Sleep Last Admin: 09/14/16 22:29 Dose: 5 mg Discontinued Medications Hydrocodone Bitart/Acetaminophen ([place] 325-10 Mg) 1 tab PO Q6H PRN PRN Reason: Pain (moderate 4-6) Last Admin: 09/15/16 09:24 Dose: 1 tab Sodium Chloride (Normal Saline) 1,000 mls @ 250 mls/hr IV ASDIRECTED [facility] Last Admin: 09/13/16 04:31 Dose: 250 mls/hr Sodium Chloride (Normal Saline) 1,000 mls @ 125 mls/hr IV ASDIRECTED [facility] Last Admin: 09/13/16 10:03 Dose: 125 mls/hr Sodium Chloride (Normal Saline) 1,000 mls @ 50 mls/hr IV ASDIRECTED [facility] Last Admin: 09/13/16 20:52 Dose: 50 mls/hr Sodium Chloride (Normal Saline) 100 mls @ 3.5 mls/sec IV ASDIRECTED [facility] Stop: 09/14/16 14:30 Last Admin: 09/14/16 14:13 Dose: 3.5 mls/sec Iopamidol (Isovue-300 (61%)) 100 ml IV . DIRECTED PRN PRN Reason: RADIOLOGY EXAM Stop: 09/14/16 14:30 Last Admin: 09/14/16 14:13 Dose: 100 ml Lidocaine HCl (Xylocaine 2% Jelly) Confirm Administered Dose 10 ml .ROUTE .STK- MED ONE Stop: 09/13/16 05:11 Last Admin: 09/13/16 05:23 Dose: Not Given Lidocaine HCl (Xylocaine 2% Jelly) 10 ml MUCMEM ONETIME ONE Stop: 09/13/16 05:21 Last Admin: 09/13/16 05:23 Dose: 10 ml Morphine Sulfate (Morphine) 2 mg IVPUSH ONETIME ONE Stop: 09/13/16 05:27 Last Admin: 09/13/16 05:32 Dose: 2 mg Morphine Sulfate (Morphine) 2 mg IVPUSH Q2H PRN PRN Reason: Pain (severe 7-10) Last Admin: 09/15/16 14:40 Dose: 2 mg Ondansetron HCl (Zofran) 4 mg IVPUSH ONETIME ONE Stop: 09/13/16 05:29 Last Admin: 09/13/16 05:32 Dose: 4 mg Oxycodone HCl (Oxycodone) 5 mg PO Q4H PRN PRN Reason: Pain (moderate 4-6) Last Admin: 09/13/16 16:08 Dose: 5 mg Pantoprazole Sodium (Protonix Iv) 40 mg IV Q12H [facility] Last Admin: 09/14/16 08:34 Dose: 40 mg Pantoprazole Sodium (Protonix) 40 mg PO BIDAC [facility] Last Admin: 09/15/16 08:20 Dose: 40 mg Sodium Chloride (Saline Flush) 10 ml FLUSH ASDIRECTED PRN PRN Reason: Keep Vein Open Last Admin: 09/14/16 14:13 Dose: 10 ml Sodium Chloride (Normal Saline) 10 ml FLUSH ONETIME ONE Stop: 09/14/16 13:48 Last Admin: 09/14/16 19:28 Dose: Not Given *Q Meaningful Use (DIS) - VTE *Q VTE Criteria *Q: - Stroke *Q Stroke Criteria *Q: - AMI *Q AMI Criteria *Q:
[2016-09-16] MEDS: Citalopram 20 MG Tab PO SCH (15:28)
[2016-09-16] MEDS: Enoxaparin 40 MG/0.4 ML Syringe SUBCUT SCH (15:28)
[2016-09-16] MEDS: Bisacodyl 5 MG Tab PO PRN (17:05)
[2016-09-16] MEDS: Docusate Sodium 100 MG Cap PO PRN (17:05)
[2016-09-17] MEDS: Morphine 2 MG/ML Syringe IVPUSH PRN ×2 (03:26→08:24)
[2016-09-17] MEDS: Docusate Sodium 100 MG Cap PO PRN (03:26)
[2016-09-17] MEDS: Bisacodyl 5 MG Tab PO PRN (03:26)
[2016-09-17] MEDS: Acetaminophen/HYDROcodone 325-10 MG Tab PO PRN ×2 (05:31→11:05)
[2016-09-17 08:09] VITALS: BP 128/65
[2016-09-17] MEDS: Citalopram 20 MG Tab PO SCH (08:28)
[2016-09-17] MEDS: Pantoprazole 40 MG Tab.CR PO SCH (08:28)
[2016-09-17] MEDS: Nicotine 21 MG/24 Hr Patch TRDERM SCH (08:28)
[2016-09-17] MEDS: Phenytoin 100 MG Cap.ER PO SCH (08:30)
[2016-09-17] MEDS: PHENobarbital 32.4 MG Tab PO SCH (08:33)
[2016-09-17] MEDS: ALPRAZolam 0.5 MG Tab PO SCH (08:33)
[2016-09-17] MEDS ORDERED: Morphine 4 MG/ML Syringe IVPUSH PRN (11:02)
== END 2016-09-17 11:40 | DRG 86 ==
LOC: JP.ED 03:54 → JP.MS 05:33
PROVIDERS: ADMIT Hospitalist; ATTEND Hospitalist
DX: S06.9X1A Unspecified intracranial injury with loss of consciousness of 30 minutes or less, initial encounter (principal); E87.2 Acidosis; K92.0 Hematemesis; E46 Unspecified protein-calorie malnutrition; J94.8 Other specified pleural conditions; R40.2413 Glasgow coma scale score 13-15, at hospital admission; Z68.20 Body mass index [BMI] 20.0-20.9, adult; W10.9XXA Fall (on) (from) unspecified stairs and steps, initial encounter; Y92.099 Unspecified place in other non-institutional residence as the place of occurrence of the external cause; Z91.81 History of falling; F10.21 Alcohol dependence, in remission; G40.909 Epilepsy, unspecified, not intractable, without status epilepticus; Z98.1 Arthrodesis status; M54.6 Pain in thoracic spine; G89.29 Other chronic pain; Z87.891 Personal history of nicotine dependence; H54.7 Unspecified visual loss; F32.9 Major depressive disorder, single episode, unspecified; Z88.0 Allergy status to penicillin; C73 Malignant neoplasm of thyroid gland; Z79.891 Long term (current) use of opiate analgesic; Z91.5 Personal history of self-harm
CPT/HCPCS: 36415; 70450; 71010 ×2; 72125; 80053; 82140; 82803; 84484; 85027; 93005; 96361; 96374; 96375; 99285; J2270; J2405; J7040; J7050; 36600; 71260; 71260-26; 74177; 74177-26; 80305; 81001; 82272; 83605; 83735; 85025; 93010; 96372; 97116-GP; 97162-GP; 97165-GO; A9270-GY; C9113; J1650; J2060; J7030; Q9967

== ENCOUNTER 2016-09-29 15:46 | Emergency (ER) | payer MEDICARE, MEDICAID ==
[2016-09-29] MEDS ORDERED: HYDROmorphone 0.5 MG/0.5 ML Syringe IVPUSH ONE (17:16)
--- NOTE | 2016-09-29 17:21 | EDM.PDOC ---
[id number] [facility] Time Seen by Provider: 09/29/16 17:19 Source: Reports: Patient, Family History Limitations: Reports: No limitations - History of Present Illness INITIAL COMMENTS - FREE TEXT/NARRATIVE: Pt qarrived with a seizure. He was found seizuring at the snf. Timing/Duration: Reports: Hour(s): Location (Neuro Complaint): Reports: generalized Quality (Neuro Complaint): Reports: weakness Severity: moderate Associated symptoms: Reports: other (pt is having severe back pain. ) - Related Data Allergies/ADRs: Allergies Allergy/AdvReac Type Severity Reaction Status Date / Time Penicillins Allergy Severe Anaphylactic Verified 09/13/16 07:23 Shock Home Meds: Home Meds ALPRAZolam [Alprazolam] 1 mg PO BID #60 tablet 09/16/16 [Rx] Acetaminophen/HYDROcodone [[place] 325-10 MG] 1 tab PO Q4H #80 tablet 09/16/16 [Rx ] Citalopram [Citalopram HBr] 20 mg PO DAILY #30 tablet 09/16/16 [Rx] Docusate Sodium [Colace] 100 mg PO BID #60 cap 09/16/16 [Rx] Nicotine [Habitrol] 21 mg TRDERM DAILY #30 patch 09/16/16 [Rx] PHENobarbital [Phenobarbital] 97.2 mg PO BID #60 tablet 09/16/16 [Rx] Pantoprazole [ProTONIX] 40 mg PO DAILY #30 tab.cr 09/16/16 [Rx] Phenytoin 200 mg PO BID #60 cap.er 09/16/16 [Rx] Past Medical History HEENT History: Reports: Impaired vision Respiratory History: Reports: COPD Gastrointestinal History: Reports: GERD Genitourinary History: Reports: BPH Other Genitourinary History: recent kidney function issue but undiagnoised at this time Musculoskeletal History: Reports: Back pain, chronic Neurological History: Reports: Seizure Psychiatric History: Reports: Addiction Endocrine/Metabolic History: Reports: Other (see below) Other Endocrine/Metabolic History: recent elevated blood sugars, undiagnoised. thyroid cancer, failed to go to surgery on 09/01/16 Oncologic (Cancer) History: Reports: Lung, Thyroid, Other (see below) Other Oncologic History: mesotheleoma - Infectious Disease History Infectious Disease History: Reports: Chicken pox - Past Surgical History HEENT Surgical History: Reports: Tonsillectomy GI Surgical History: Reports: Esophageal dilatation Endocrine Surgical History: Reports: Other (see below) Other Endocrine Surgeries/Procedures: thyroid cancer Neurological Surgical History: Reports: Spinal fusion Musculoskeletal Surgical History: Reports: Other (see below) Other Musculoskeletal Surgeries/Procedures:: back fusion Social & Family History - Tobacco Use Smoking Status *Q: Former Smoker Years of Tobacco use: 50 Packs/Tins Daily: 2 Second Hand Smoke Exposure: No - Caffeine Use Caffeine Use: Reports: Coffee - Alcohol Use Days Per Week of Alcohol Use: 3 Number of Drinks Per Day: 5 Total Drinks Per Week: 15 - Recreational Drug Use Recreational Drug Use: No - Living Situation & Occupation Living situation: Reports: , with family Occupation: disabled ED ROS GENERAL - Review of Systems Review Of Systems: See Below Constitutional: Reports: no symptoms HEENT: Reports: No symptoms Respiratory: Reports: No Symptoms Cardiovascular: Reports: No symptoms Endocrine: Reports: no symptoms GI/Abdominal: Reports: No symptoms : Reports: no symptoms Skin: Reports: other (pain in the lower back. He was started on fentyl patch 2 days ago and ended up with a seizure today. He does not like how he feels on the fentyl. ) Neurological: Reports: Seizure Psychiatric: Reports: No symptoms ED EXAM, NEURO - Physical Exam Exam: See Below Text/Narrative:: Pt has severe back pain. He does not like the fentyl patch. Exam Limited By: No limitations General Appearance: alert, other (pt was lethargic when he first arrived. He is now very alert. pupils equal and reactive. ) Ears: normal TMs Nose: normal inspection Throat/Mouth: Normal inspection Head Exam: atraumatic Neck: normal inspection Respiratory/Chest: no respiratory distress Cardiovascular: regular rate, rhythm GI/Abdominal: soft, non tender Rectal (Males) Exam: Deferred Neurological: alert, oriented x 3, other (post ictal. ) Back Exam: other ( very tender from the t spine to the L spine. ) Extremities: normal inspection Psychiatric: normal affect Course - Vital Signs Last Recorded V/S: Last Vital Signs Temp 37.1 C 09/29/16 16:56 Pulse 57 L 09/29/16 21:57 Resp 19 09/29/16 21:57 BP 126/56 L 09/29/16 21:57 Pulse Ox 96 09/29/16 21:57 - Orders/Labs/Meds Orders: Active Orders 24 hr Category Date Time Status Head wo Cont [CT] Stat Exams 09/29/16 17:16 Taken VL Duplex Lwr Ext Veins Comp [US] Stat Exams 09/29/16 19:31 Taken PHENOBARBITAL [REF] Stat Lab 09/29/16 18:33 Received Labs: Laboratory Tests 09/29/16 09/29/16 09/29/16 Range/Units 17:16 17:16 17:18 WBC 5.2 (4.5-11.0) K/uL RBC 3.59 L (4.30-5.90) M/uL Hgb 12.6 (12.0-15.0) g/dL Hct 37.5 L (40.0-54.0) % MCV 105 H (80-98) fL MCH 35 H (27-31) pg MCHC 34 (32-36) % Plt Count 199 (150-400) K/uL Neut % (Auto) 67 H (36-66) % Lymph % (Auto) 20 L (24-44) % [place] % (Auto) 9 H (2-6) % Eos % (Auto) 2 (2-4) % Baso % (Auto) 2 H (0-1) % Sodium 143 (140-148) mmol/L Potassium 4.2 (3.6-5.2) mmol/L Chloride 106 (100-108) mmol/L Carbon Dioxide 34 H (21-32) mmol/L Anion Gap 7.2 (5.0-14.0) mmol/L BUN 10 (7-18) mg/dL Creatinine 0.8 (0.8-1.3) mg/dL Est Cr Clr Drug Dosing 71.08 mL/min Estimated GFR (MDRD) > 60 (>60) Glucose 117 H (74-106) mg/dL Calcium 7.9 L (8.5-10.1) mg/dL Total Bilirubin 0.3 (0.2-1.0) mg/dL AST 19 (15-37) U/L ALT 20 (12-78) U/L Alkaline Phosphatase 96 (46-116) U/L Total Protein 5.8 L (6.4-8.2) g/dL Albumin 3.1 L (3.4-5.0) g/dL Globulin 2.7 (2.3-3.5) g/dL Albumin/Globulin Ratio 1.2 (1.2-2.2) Urine Color Urine Appearance Urine pH (4.5-8.0) Ur Specific Grady (1.008-1.030) Urine Protein (NEGATIVE) mg/dL Urine Glucose (UA) (NEGATIVE) mg/dL Urine Ketones (NEGATIVE) mg/dL Urine Occult Blood (NEGATIVE) Urine Nitrite (NEGAITVE) Urine Bilirubin (NEGATIVE) Urine Urobilinogen (NORMAL) mg/dL Ur Leukocyte Esterase (NEGATIVE) Urine RBC (0-5) Urine WBC (0-5) Ur Epithelial Cells Amorphous Sediment Urine Bacteria Urine Mucus Phenytoin 12.7 (10.0-20.0) ug/mL 09/29/16 Range/Units 19:01 WBC (4.5-11.0) K/uL RBC (4.30-5.90) M/uL Hgb (12.0-15.0) g/dL Hct (40.0-54.0) % MCV (80-98) fL MCH (27-31) pg MCHC (32-36) % Plt Count (150-400) K/uL Neut % (Auto) (36-66) % Lymph % (Auto) (24-44) % [place] % (Auto) (2-6) % Eos % (Auto) (2-4) % Baso % (Auto) (0-1) % Sodium (140-148) mmol/L Potassium (3.6-5.2) mmol/L Chloride (100-108) mmol/L Carbon Dioxide (21-32) mmol/L Anion Gap (5.0-14.0) mmol/L BUN (7-18) mg/dL Creatinine (0.8-1.3) mg/dL Est Cr Clr Drug Dosing mL/min Estimated GFR (MDRD) (>60) Glucose (74-106) mg/dL Calcium (8.5-10.1) mg/dL Total Bilirubin (0.2-1.0) mg/dL AST (15-37) U/L ALT (12-78) U/L Alkaline Phosphatase (46-116) U/L Total Protein (6.4-8.2) g/dL Albumin (3.4-5.0) g/dL Globulin (2.3-3.5) g/dL Albumin/Globulin Ratio (1.2-2.2) Urine Color Yellow Urine Appearance Clear Urine pH 8.0 (4.5-8.0) Ur Specific Grady 1.015 (1.008-1.030) Urine Protein Negative (NEGATIVE) mg/dL Urine Glucose (UA) Normal (NEGATIVE) mg/dL Urine Ketones Negative (NEGATIVE) mg/dL Urine Occult Blood Negative (NEGATIVE) Urine Nitrite Negative (NEGAITVE) Urine Bilirubin Negative (NEGATIVE) Urine Urobilinogen Normal (NORMAL) mg/dL Ur Leukocyte Esterase Negative (NEGATIVE) Urine RBC 0-5 (0-5) Urine WBC 0-5 (0-5) Ur Epithelial Cells Not seen Amorphous Sediment Rare Urine Bacteria Not seen Urine Mucus Not seen Phenytoin (10.0-20.0) ug/mL Meds: Medications Discontinued Medications Generic Name Dose Route Start Last Admin Trade Name Freq PRN Reason Stop Dose Admin Hydrocodone Bitart/Acetaminophen 1 tab 09/29/16 21:27 09/29/16 22:13 [place] 325-5 Mg PO 09/29/16 21:28 1 tab ONETIME ONE Administration Furosemide 40 mg 09/29/16 19:33 09/29/16 20:22 Lasix IVPUSH 09/29/16 19:34 40 mg ONETIME ONE Administration Furosemide 20 mg 09/29/16 22:46 09/29/16 23:29 Lasix PO 09/29/16 22:47 20 mg ONETIME ONE Administration Hydromorphone HCl 0.5 mg 09/29/16 17:16 09/29/16 17:32 Dilaudid IVPUSH 09/29/16 17:17 0.5 mg ONETIME ONE Administration Phenytoin Sodium 100 mg 09/29/16 19:16 09/29/16 20:22 Phenytoin IVPUSH 09/29/16 19:17 100 mg ONETIME ONE Administration - Re-Assessments/Exams Free Text/Narrative Re-Assessment/Exam: 09/29/16 19:28 Pt had a slightly low phentoin level He was given a extra 100mg of phentoin. The fentyl patches were removed. will plan to resume the norco 5/325 for pain controll Departure - Departure Time of Disposition: 23:10 Disposition: Home, Self-Care 01 Condition: fair Clinical Impression: Seizure, Pedal edema, Dilantin level too low Instructions: Seizure, Adult Referrals: PCP,None [Primary Care Provider] - Forms: ED Department Discharge Care Plan Goals: elevate leg, lasix 20mg po daily, increase dilantin to 200mg in am, 300mg at bedtime, dilantin level in 1 week, stop the fentyl patches, norco 5/325 q6h prn for pain, cont other meds. - My Orders Last 24 Hours: My Active Orders 09/29/16 17:16 Head wo Cont [CT] Stat 09/29/16 18:33 PHENOBARBITAL [REF] Stat 09/29/16 19:31 VL Duplex Lwr Ext Veins Comp [US] Stat - Assessment/Plan Last 24 Hours: My Active Orders 09/29/16 17:16 Head wo Cont [CT] Stat 09/29/16 18:33 PHENOBARBITAL [REF] Stat 09/29/16 19:31 VL Duplex Lwr Ext Veins Comp [US] Stat
[2016-09-29] MEDS ORDERED: Phenytoin 250 MG/5 ML SDV IVPUSH ONE (19:16)
[2016-09-29] MEDS ORDERED: Furosemide 40 MG/4 ML VIAL IVPUSH ONE (19:33)
[2016-09-29] MEDS ORDERED: Acetaminophen/HYDROcodone 325-5 MG Tab PO ONE (21:27)
[2016-09-29 22:01] VITALS: BP 126/56
[2016-09-29] MEDS ORDERED: Furosemide 20 MG Tab PO ONE (22:46)
== END 2016-09-29 23:31 | disposition home or self-care (01) ==
LOC: JP.ED 15:46
DX: G40.909 Epilepsy, unspecified, not intractable, without status epilepticus (principal); R60.1 Generalized edema; K21.9 Gastro-esophageal reflux disease without esophagitis; J44.9 Chronic obstructive pulmonary disease, unspecified; Z88.0 Allergy status to penicillin; Z79.899 Other long term (current) drug therapy; Z98.890 Other specified postprocedural states; Z87.891 Personal history of nicotine dependence; T42.0X5A Adverse effect of hydantoin derivatives, initial encounter
CPT/HCPCS: 36415; 70450; 80053; 80184; 80185; 81001; 85025; 93970; 96374; 96375; 99285; A9270; J1165; J1170; J1940; 99284

== ENCOUNTER 2016-10-22 22:36 | Inpatient (IN) | payer MEDICARE, MEDICAID ==
[2016-10-22] MEDS: Sodium Chloride 0.9% 1,000 ML IV SCH (23:10)
--- NOTE | 2016-10-22 23:13 | EDM.PDOC ---
ED HPI Behavioral Health - General Chief Complaint: Drug or Alcohol Abuse Stated Complaint: ILLNESS Time Seen by Provider: 10/22/16 22:45 Source: Reports: Patient, Family Exam Limitations: Reports: Uncooperative (Patient himself offers little history) - History of Present Illness INITIAL COMMENTS - FREE TEXT/NARRATIVE: 66-year-old chronic alcoholic who is now living with his daughter was hoping that he can show some improvement for the last 2 days has been "cranky". They went out for supper tonight and he did not want to join them, while they were out he drank a half a bottle of rubbing alcohol. 4 hours later he came up the stairs yelling for help because he didn't feel well. He now denies any pain other than his baseline chronic back problems. No nausea or vomiting. Vitals are stable - Related Data Allergies Allergy/AdvReac Type Severity Reaction Status Date / Time Penicillins Allergy Severe Anaphylactic Verified 10/22/16 22:44 Shock Home Medications: Home Meds Docusate Sodium [Colace] 100 mg PO BID #60 cap 09/16/16 [Rx] Nicotine [Habitrol] 21 mg TRDERM DAILY #30 patch 09/16/16 [Rx] PHENobarbital [Phenobarbital] 97.2 mg PO BID #60 tablet 09/16/16 [Rx] Pantoprazole [ProTONIX] 40 mg PO DAILY #30 tab.cr 09/16/16 [Rx] Phenytoin 200 mg PO BID #60 cap.er 09/16/16 [Rx] ALPRAZolam [Alprazolam] 1 mg PO Q8H 10/22/16 [History] Acetaminophen/HYDROcodone [[place] 325-10 MG] 1 tab PO Q8H 10/22/16 [History] Citalopram [Citalopram HBr] 30 mg PO DAILY 10/22/16 [History] Furosemide [Lasix] 20 mg PO DAILY 10/22/16 [History] fentaNYL [Fentanyl] 50 mcg TOP Q3D 10/22/16 [History] back Pain Score (Numeric/FACES): 10 Past Medical History HEENT History: Reports: Impaired vision Cardiovascular History: Reports: None Respiratory History: Reports: None, COPD Gastrointestinal History: Reports: GERD Genitourinary History: Reports: BPH Other Genitourinary History: recent kidney function issue but undiagnoised at this time Musculoskeletal History: Reports: Back pain, chronic Neurological History: Reports: Seizure Psychiatric History: Reports: Addiction, Depression, Suicide attempt Endocrine/Metabolic History: Reports: Other (see below) Other Endocrine/Metabolic History: recent elevated blood sugars, undiagnoised. thyroid cancer, failed to go to surgery on 09/01/16 Hematologic History: Reports: None Immunologic History: Reports: None Oncologic (Cancer) History: Reports: Thyroid, Other (see below) Other Oncologic History: s/s of mesotheleoma Dermatologic History: Reports: None - Infectious Disease History Infectious Disease History: Reports: Chicken pox - Past Surgical History HEENT Surgical History: Reports: Tonsillectomy GI Surgical History: Reports: Esophageal dilatation Endocrine Surgical History: Reports: Other (see below) Other Endocrine Surgeries/Procedures: thyroid cancer Neurological Surgical History: Reports: Spinal fusion Musculoskeletal Surgical History: Reports: Other (see below) Other Musculoskeletal Surgeries/Procedures:: back fusion Social & Family History - Tobacco Use Smoking Status *Q: Former Smoker Years of Tobacco use: 50 Packs/Tins Daily: 2 Used Tobacco, but Quit: Yes Month Tobacco Last Used: 08/2016 Second Hand Smoke Exposure: No - Caffeine Use Caffeine Use: Reports: None - Alcohol Use Days Per Week of Alcohol Use: 3 Number of Drinks Per Day: 5 Total Drinks Per Week: 15 - Recreational Drug Use Recreational Drug Use: No - Living Situation & Occupation Living situation: Reports: , with family Occupation: disabled ED ROS GENERAL - Review of Systems Review Of Systems: See Below Constitutional: Denies: fever, chills Respiratory: Denies: Shortness of Breath Cardiovascular: Denies: Chest pain Musculoskeletal: Reports: back pain (Chronic) Skin: Reports: no symptoms ED EXAM, BEHAVIORAL HEALTH - Physical Exam Exam: See Below Exam Limited By: Uncooperative General Appearance: alert, no apparent distress Eye Exam: bilateral eye: EOMI Respiratory/Chest: no respiratory distress, lungs clear Cardiovascular: regular rate, rhythm GI/Abdominal: soft, non tender Extremities: normal inspection. No: pedal edema Neurological: alert Psychiatric: depressed mood, flat affect Skin Exam: Warm, Dry COURSE, BEHAVIORAL HEALTH COMP - Course Vital Signs: Last Vital Signs Temp 97.9 F 10/23/16 02:20 Pulse 65 10/23/16 04:00 Resp 11 L 10/23/16 04:00 BP 129/58 L 10/23/16 04:00 Pulse Ox 95 10/23/16 04:00 Orders, Labs, Meds: Active Orders 24 hr Category Date Time Status Sodium Chloride 0.9% [Normal Saline] 1,000 ml Med 10/22/16 23:00 Active IV ASDIRECTED Medication Orders Hydrocodone Bitart/Acetaminophen ([place] 325-5 Mg) 1 tab PO Q4H PRN PRN Reason: Pain (moderate 4-6) Last Admin: 10/23/16 03:05 Dose: 1 tab Alprazolam (Xanax) 0.5 mg PO BID PRN PRN Reason: Anxiety Heparin Sodium (Porcine) (Heparin Sodium) 5,000 units SUBCUT Q8H [facility] Last Admin: 10/23/16 03:05 Dose: Not Given Admin: 10/23/16 03:04 Dose: 5,000 units Sodium Chloride (Normal Saline) 1,000 mls @ 150 mls/hr IV ASDIRECTED BRITTANY Last Admin: 10/23/16 01:14 Dose: 150 mls/hr Infusion: 10/23/16 01:10 Dose: 500 mls/hr Admin: 10/22/16 23:10 Dose: 500 mls/hr Ondansetron HCl (Zofran Odt) 4 mg PO Q6H PRN PRN Reason: Nausea able to take PO Pantoprazole Sodium (Protonix) 40 mg PO DAILY [facility] Promethazine HCl (Phenergan) 25 mg PO Q6H PRN PRN Reason: Nausea able to take PO Laboratory Tests 10/22/16 10/22/16 10/22/16 Range/Units 23:10 23:10 23:10 WBC 5.8 (4.5-11.0) K/uL RBC 4.01 L (4.30-5.90) M/uL Hgb 13.9 (12.0-15.0) g/dL Hct 40.5 (40.0-54.0) % MCV 101 H (80-98) fL MCH 35 H (27-31) pg MCHC 34 (32-36) % Plt Count 199 (150-400) K/uL Neut % (Auto) 61 (36-66) % Lymph % (Auto) 29 (24-44) % [place] % (Auto) 7 H (2-6) % Eos % (Auto) 2 (2-4) % Baso % (Auto) 2 H (0-1) % Sodium 141 (140-148) mmol/L Potassium 3.9 (3.6-5.2) mmol/L Chloride 104 (100-108) mmol/L Carbon Dioxide 31 (21-32) mmol/L Anion Gap 6.2 (5.0-14.0) mmol/L BUN 9 (7-18) mg/dL Creatinine 1.0 (0.8-1.3) mg/dL Est Cr Clr Drug Dosing 66.67 mL/min Estimated GFR (MDRD) > 60 (>60) Glucose 136 H (74-106) mg/dL Calcium 8.0 L (8.5-10.1) mg/dL Total Bilirubin 0.3 (0.2-1.0) mg/dL AST 25 (15-37) U/L ALT 23 (12-78) U/L Alkaline Phosphatase 91 (46-116) U/L Total Protein 6.5 (6.4-8.2) g/dL Albumin 3.6 (3.4-5.0) g/dL Globulin 2.9 (2.3-3.5) g/dL Albumin/Globulin Ratio 1.2 (1.2-2.2) Acetaminophen 0.0 L (10.0-30.0) ug/mL Ethyl Alcohol < 3 mg/dL Medications Generic Name Dose Route Start Last Admin Trade Name Freq PRN Reason Stop Dose Admin Hydrocodone Bitart/Acetaminophen 1 tab 10/23/16 00:30 10/23/16 03:05 [place] 325-5 Mg PO 1 tab Q4H PRN Administration Pain (moderate 4-6) Alprazolam 0.5 mg 10/23/16 00:44 Xanax PO BID PRN Anxiety Heparin Sodium (Porcine) 5,000 units 10/23/16 00:30 10/23/16 03:05 Heparin Sodium SUBCUT Not Given Q8H BRITTANY Sodium Chloride 1,000 mls @ 150 mls/hr 10/22/16 23:00 10/23/16 01:14 Normal Saline IV 150 mls/hr ASDIRECTED BRITTANY Administration Ondansetron HCl 4 mg 10/23/16 00:30 Zofran Odt PO Q6H PRN Nausea able to take PO Pantoprazole Sodium 40 mg 10/23/16 09:00 Protonix PO DAILY BRITTANY Promethazine HCl 25 mg 10/23/16 00:30 Phenergan PO Q6H PRN Nausea able to take PO Re-Assessment/Re-Exam: Poison control was consulted and advised supportive care only. CBC, CMP and EtOH along with acetaminophen levels were obtained. IV hydration was started. Labs were reassuring and basically normal. EtOH was 0. Dr. Trujillo kindly came in to admit the patient for observation, he will need a psychiatric consult and monitoring until the isopropyl alcohol effects are no longer a danger. Departure - Departure Time of Disposition: 02:20 Disposition: Admitted As Inpatient 66 Condition: fair Clinical Impression: Isopropyl alcohol poisoning - My Orders Last 24 Hours: My Active Orders 10/22/16 23:00 Sodium Chloride 0.9% [Normal Saline] 1,000 ml IV ASDIRECTED - Assessment/Plan Last 24 Hours: My Active Orders 10/22/16 23:00 Sodium Chloride 0.9% [Normal Saline] 1,000 ml IV ASDIRECTED
[2016-10-23] MEDS ORDERED: Ondansetron 4 MG Tab.DIS PO PRN (00:30)
[2016-10-23] MEDS ORDERED: Promethazine 25 MG Tab PO PRN (00:30)
[2016-10-23] MEDS ORDERED: ALPRAZolam 0.5 MG Tab PO PRN (00:44)
--- NOTE | 2016-10-23 01:01 | PCM.HP ---
H&P History of Present Illness - General Date of Service: 10/22/16 Admit Problem/Dx: Admission Diagnosis/Problem Admission Diagnosis/Problem Drug overdose Source of Information: Patient, EMS History Limitations: Reports: No limitations - History of Present Illness Initial Comments - Free Text/Narative: 66-year-old male with past medical history of seizure disorder, significant alcohol abuse, recently diagnosed with thyroid cancer following with endocrinology,chronic back pain, GERD came to the ED accompanied with family with the concerns of drug overdose. Patient recently moved to the [place] from [place] and admitted into the [facility]. Patient has strong past medical history of alcohol abuse. Patient states that he drank isopropyl alcohol around 8 PM today. Patient states that initially he had abdominal pain associated with nausea and had 4 episodes of vomiting. Denies any chest pain, palpitations. When I saw the patient patient denies any abdominal pain denies any nausea but complaining of back pain. Denies any recent fever, recent sick contacts. Patient says that he recently discharged from the [facility] and staying with his daughter. Patient denies any suicidal, homicidal ideation. Patient was diagnosed with depression, anxiety during the [facility] stay and was prescribed on Celexa 30 mg daily. Patient is compliant with the medication. Patient states that his last alcohol intake was 3 weeks ago. In the ED patient received thousand mL of bolus normal saline and contacted drug overdose team. As the information I got from ER physician patient's family doesn't want to take him back due to the concerns of harm to himself and due to significant alcohol abuse. Patient is a full code Patient doesn't want to hurt himself and hurt anybody. Other review of systems are not significant. Duration of Symptoms: Reports: Hour(s): (4) Location: Reports: abdomen Quality: Reports: Ache Context: Reports: activity/exercise, lifting Associated Symptoms: Denies: chest pain, cough, diaphoresis, fever/chills, headaches, loss of appetite, malaise, seizure, shortness of breath back Pain Score (Numeric/FACES): 10 - Related Data Allergies/Adverse Reactions: Allergies Allergy/AdvReac Type Severity Reaction Status Date / Time Penicillins Allergy Severe Anaphylactic Verified 10/22/16 22:44 Shock Home Medications: Home Meds Docusate Sodium [Colace] 100 mg PO BID #60 cap 09/16/16 [Rx] Nicotine [Habitrol] 21 mg TRDERM DAILY #30 patch 09/16/16 [Rx] PHENobarbital [Phenobarbital] 97.2 mg PO BID #60 tablet 09/16/16 [Rx] Pantoprazole [ProTONIX] 40 mg PO DAILY #30 tab.cr 09/16/16 [Rx] Phenytoin 200 mg PO BID #60 cap.er 09/16/16 [Rx] ALPRAZolam [Alprazolam] 1 mg PO Q8H 10/22/16 [History] Acetaminophen/HYDROcodone [[place] 325-10 MG] 1 tab PO Q8H 10/22/16 [History] Citalopram [Citalopram HBr] 30 mg PO DAILY 10/22/16 [History] Furosemide [Lasix] 20 mg PO DAILY 10/22/16 [History] fentaNYL [Fentanyl] 50 mcg TOP Q3D 10/22/16 [History] Past Medical History HEENT History: Reports: Impaired vision Cardiovascular History: Reports: None Respiratory History: Reports: None, COPD Gastrointestinal History: Reports: GERD Genitourinary History: Reports: BPH Other Genitourinary History: recent kidney function issue but undiagnoised at this time Musculoskeletal History: Reports: Back pain, chronic Neurological History: Reports: Seizure Psychiatric History: Reports: Addiction, Depression, Suicide attempt Endocrine/Metabolic History: Reports: Other (see below) Other Endocrine/Metabolic History: recent elevated blood sugars, undiagnoised. thyroid cancer, failed to go to surgery on 09/01/16 Hematologic History: Reports: None Immunologic History: Reports: None Oncologic (Cancer) History: Reports: Thyroid, Other (see below) Other Oncologic History: s/s of mesotheleoma Dermatologic History: Reports: None - Infectious Disease History Infectious Disease History: Reports: Chicken pox - Past Surgical History HEENT Surgical History: Reports: Tonsillectomy GI Surgical History: Reports: Esophageal dilatation Endocrine Surgical History: Reports: Other (see below) Other Endocrine Surgeries/Procedures: thyroid cancer Neurological Surgical History: Reports: Spinal fusion Musculoskeletal Surgical History: Reports: Other (see below) Other Musculoskeletal Surgeries/Procedures:: back fusion Social & Family History - Tobacco Use Smoking Status *Q: Former Smoker Years of Tobacco use: 50 Packs/Tins Daily: 2 Used Tobacco, but Quit: Yes Month Tobacco Last Used: 08/2016 Second Hand Smoke Exposure: No - Caffeine Use Caffeine Use: Reports: None - Alcohol Use Days Per Week of Alcohol Use: 3 Number of Drinks Per Day: 5 Total Drinks Per Week: 15 - Recreational Drug Use Recreational Drug Use: No - Living Situation & Occupation Living situation: Reports: , with family Occupation: disabled H&P Review of Systems - Review of Systems: Review Of Systems: See Below General: Denies: fever, chills, malaise, weakness, night sweats, diaphoresis HEENT: Denies: contact lenses, dysphasia Pulmonary: Denies: Shortness of Breath, Wheezing, Cough, Sputum Cardiovascular: Denies: chest pain, palpitations, dyspnea on exertion, orthopnea , PND, edema, lightheadedness, syncope, blood pressure problem Gastrointestinal: Reports: Abdominal pain, Anorexia. Denies: Black stool, Bloody stool, Constipation, Diarrhea, Decreased appetite, Difficulty swallowing , Distension, Flatus, Hematemesis Genitourinary: Denies: dysuria, frequency Musculoskeletal: Reports: neck pain, back pain Skin: Denies: cyanosis, jaundice Psychiatric: Reports: depression, mood lability, agitation. Denies: confusion, anxiety Neurological: Denies: Confusion, Dizziness, Headache Hematologic/Lymphatic: Denies: anemia, easy bleeding Exam - Exam Exam: See Below - Vital Signs Vital Signs: Last Vital Signs Temp 36.4 C 10/22/16 22:40 Pulse 67 10/23/16 00:30 Resp 16 10/23/16 00:30 BP 159/79 H 10/23/16 00:30 Pulse Ox 96 10/23/16 00:30 Weight: 64.864 kg - Exam Quality Assessment: No: supplemental oxygen General: alert, oriented HEENT: PERRLA, Conjunctiva clear Neck: supple, trachea midline Lungs: Clear to auscultation, Normal respiratory effort Cardiovascular: regular rate, regular rhythm Abdomen: normal bowel sounds, soft. No: distention, guarding, rigidity, rebound , tenderness, hyperactive bowel sounds, hypoactive bowel sounds, tympanic bowel sounds, hepatomegaly, splenomegaly, mass Back Exam: normal inspection, full range of motion, paraspinal tenderness, vertebral tenderness Extremities: normal inspection Skin: warm, dry, intact Neurological: cranial nerves intact Neuro Extensive - Mental Status: alert, oriented x3, normal mood/affect, normal cognition, memory intact Neuro Extensive - Motor, Sensory, Reflexes: normal reflexes Psychiatric: alert, normal affect, anxious, depressed. No: normal mood, suicidal ideation, homicidal ideation, hallucinations, withdrawal symptoms - Patient Data Lab Results last 24 hrs: Laboratory Results - last 24 hr 10/22/16 10/22/16 10/22/16 Range/Units 23:10 23:10 23:10 WBC 5.8 (4.5-11.0) K/uL RBC 4.01 L (4.30-5.90) M/uL Hgb 13.9 (12.0-15.0) g/dL Hct 40.5 (40.0-54.0) % MCV 101 H (80-98) fL MCH 35 H (27-31) pg MCHC 34 (32-36) % Plt Count 199 (150-400) K/uL Neut % (Auto) 61 (36-66) % Lymph % (Auto) 29 (24-44) % [place] % (Auto) 7 H (2-6) % Eos % (Auto) 2 (2-4) % Baso % (Auto) 2 H (0-1) % Sodium 141 (140-148) mmol/L Potassium 3.9 (3.6-5.2) mmol/L Chloride 104 (100-108) mmol/L Carbon Dioxide 31 (21-32) mmol/L Anion Gap 6.2 (5.0-14.0) mmol/L BUN 9 (7-18) mg/dL Creatinine 1.0 (0.8-1.3) mg/dL Est Cr Clr Drug Dosing 66.67 mL/min Estimated GFR (MDRD) > 60 (>60) Glucose 136 H (74-106) mg/dL Calcium 8.0 L (8.5-10.1) mg/dL Total Bilirubin 0.3 (0.2-1.0) mg/dL AST 25 (15-37) U/L ALT 23 (12-78) U/L Alkaline Phosphatase 91 (46-116) U/L Total Protein 6.5 (6.4-8.2) g/dL Albumin 3.6 (3.4-5.0) g/dL Globulin 2.9 (2.3-3.5) g/dL Albumin/Globulin Ratio 1.2 (1.2-2.2) Acetaminophen 0.0 L (10.0-30.0) ug/mL Ethyl Alcohol < 3 mg/dL Result Diagrams: 10/23/16 05:00 10/23/16 05:00 *Q Meaningful Use (ADM) - VTE *Q VTE Criteria *Q: - Stroke *Q Stroke Criteria *Q: - AMI *Q AMI Criteria *Q: - Problem List (1) Isopropyl alcohol poisoning SNOMED Code(s): 542773282 ICD Code: T51.2X1A - TOXIC EFFECT OF 2-PROPANOL, ACCIDENTAL (UNINTENTIONAL), INIT Status: Acute Current Visit: Yes (2) Anxiety and depression SNOMED Code(s): 716728784 ICD Code: F41.9 - ANXIETY DISORDER, UNSPECIFIED; F32.9 - MAJOR DEPRESSIVE DISORDER, SINGLE EPISODE, UNSPECIFIED Status: Acute Current Visit: Yes (3) Alcohol abuse SNOMED Code(s): 03906687 ICD Code: F10.10 - ALCOHOL ABUSE, UNCOMPLICATED Status: Acute Current Visit: Yes (4) Seizure disorder SNOMED Code(s): 588243171 ICD Code: G40.909 - EPILEPSY, UNSP, NOT INTRACTABLE, WITHOUT STATUS EPILEPTICUS Status: Acute Current Visit: Yes (5) GERD (gastroesophageal reflux disease) SNOMED Code(s): 865837300 ICD Code: K21.9 - GASTRO-ESOPHAGEAL REFLUX DISEASE WITHOUT ESOPHAGITIS Status: Acute Current Visit: Yes (6) Insomnia SNOMED Code(s): 085543295 ICD Code: G47.00 - INSOMNIA, UNSPECIFIED Status: Acute Current Visit: Yes (7) Chronic back pain SNOMED Code(s): 050482931 ICD Code: M54.9 - DORSALGIA, UNSPECIFIED; G89.29 - OTHER CHRONIC PAIN Status: Acute Current Visit: Yes (8) Mesothelioma of both lungs SNOMED Code(s): 588540940, 878602455 ICD Code: C45.7 - MESOTHELIOMA OF OTHER SITES Status: Chronic Priority: High Current Visit: No (9) Primary thyroid malignancy of unknown cell type SNOMED Code(s): 18145477 ICD Code: C73 - MALIGNANT NEOPLASM OF THYROID GLAND Status: Chronic Current Visit: No (10) Thyroid cancer Status: Chronic Current Visit: No Problem List Initiated/Reviewed/Updated: Yes Orders Last 24hrs: Active Orders 24 hr Category Date Time Status Patient Status [ADT] Routine ADT 10/23/16 00:30 Ordered Bedrest Bathroom Privileges [RC] ASDIRECTED Care 10/23/16 00:30 Ordered Cardiac Monitoring [RC] .As Directed Care 10/23/16 00:36 Ordered EKG Documentation Completion [RC] ASDIRECTED Care 10/23/16 00:39 Ordered Height and Weight [RC] DAILY Care 10/23/16 00:30 Ordered Intake and Output [RC] QSHIFT Care 10/23/16 00:36 Ordered Oxygen Therapy [RC] PRN Care 10/23/16 00:30 Ordered Pulse Oximetry [RC] CONTINUOUS Care 10/23/16 00:36 Ordered VTE/DVT Education [RC] Per Unit Routine Care 10/23/16 00:30 Ordered Vital Signs [RC] Q4H Care 10/23/16 00:30 Ordered Consult to Upholsterer Apprentice [CONS] Routine Cons 10/23/16 00:30 Ordered OT Evaluation and Treatment [CONS] Routine Cons 10/23/16 00:30 Ordered PT Evaluation and Treatment [CONS] Routine Cons 10/23/16 00:30 Ordered Nothing per Oral Now Diet [DIET] Diet 10/23/16 Breakfast Ordered CBC WITH AUTO DIFF [HEME] AM Lab 10/23/16 05:11 Ordered COMPREHENSIVE METABOLIC PN,CMP [CHEM] AM Lab 10/23/16 05:11 Ordered DRUG SCREEN, URINE [URCHEM] Stat Lab 10/23/16 00:42 Uncollected OSMOLALITY [REF] Routine Lab 10/23/16 00:45 Ordered OSMOLALITY,URINE RANDOM [REF] Stat Lab 10/23/16 00:41 Ordered URINALYSIS W/MICROSCOPIC [UA W/MICROSCOPIC] [URIN] Stat Lab 10/23/16 00:41 Uncollected ALPRAZolam [Xanax] Med 10/23/16 00:44 Pending 0.5 mg PO BID PRN Acetaminophen/HYDROcodone [[place] 325-5 MG] Med 10/23/16 00:30 Ordered 1 tab PO Q4H PRN Heparin Sodium Med 10/23/16 00:30 Ordered 5,000 units SUBCUT Q8H Ondansetron [Zofran ODT] Med 10/23/16 00:30 Ordered 4 mg PO Q6H PRN Pantoprazole [ProTONIX] Med 10/23/16 09:00 Ordered 40 mg PO DAILY Promethazine [Phenergan] Med 10/23/16 00:30 Ordered 25 mg PO Q6H PRN Sodium Chloride 0.9% [Normal Saline] 1,000 ml Med 10/22/16 23:00 Active IV ASDIRECTED Suicide Precautions [OM.PC] Routine Oth 10/23/16 00:50 Ordered Resuscitation Status Routine Resus Stat 10/23/16 00:30 Ordered EKG 12 Lead [EK] Routine Ther 10/23/16 00:30 Ordered Medication Orders Hydrocodone Bitart/Acetaminophen ([place] 325-5 Mg) 1 tab PO Q4H PRN PRN Reason: Pain (moderate 4-6) Alprazolam (Xanax) 0.5 mg PO BID PRN PRN Reason: Anxiety Heparin Sodium (Porcine) (Heparin Sodium) 5,000 units SUBCUT Q8H BRITTANY Sodium Chloride (Normal Saline) 1,000 mls @ 150 mls/hr IV ASDIRECTED BRITTANY Last Admin: 10/22/16 23:10 Dose: 500 mls/hr Ondansetron HCl (Zofran Odt) 4 mg PO Q6H PRN PRN Reason: Nausea able to take PO Pantoprazole Sodium (Protonix) 40 mg PO DAILY BRITTANY Promethazine HCl (Phenergan) 25 mg PO Q6H PRN PRN Reason: Nausea able to take PO Assessment/Plan Comment:: (1) Isopropyl alcohol poisoning (2) Anxiety and depression (3) Alcohol abuse Lab results showed negative alcohol and negative acetaminophen levels Patient says that he drank isopropyl alcohol 1/2 bottle. We will get the levels along with urine and serum osmolality eKG is at baseline Will get urine analysis Suicide precautions are placed Contacted PT, OT for discharge plans Will admit him to the inpatient due to concerns of suicidal ideation and for social issues Will repeat CBC and BMP labs tomorrow nothing by mouth for now continue IV fluids (4) Seizure disorder continue home medications (7) Chronic back pain continue home medications (9) Primary thyroid malignancy of unknown cell type continue home medications (8) Mesothelioma of both lungs continue home medications (5) GERD (gastroesophageal reflux disease) continue home medications (6) Insomnia continue home medications IV fluids: 150 mL per hour normal saline cODE STATUS: full code gI prophylaxis: pantoprazole 40 mg daily DVT prophylaxis: heparin every 8 hourly
[2016-10-23] MEDS: Sodium Chloride 0.9% 1,000 ML IV SCH ×4 (01:14→21:06)
[2016-10-23] MEDS: Heparin Sodium 5,000 Units/ML Vial SUBCUT SCH ×4 (03:04→20:49)
[2016-10-23] MEDS: Acetaminophen/HYDROcodone 325-5 MG Tab PO PRN ×2 (03:05→07:23)
[2016-10-23] MEDS: Pantoprazole 40 MG Tab.CR PO SCH (07:50)
[2016-10-23] MEDS ORDERED: Pantoprazole 40 MG Tab.CR PO SCH (10:15)
--- NOTE | 2016-10-23 10:19 | PCM.PN ---
- General Info Date of Service: 10/23/16 Functional Status: Reports: tolerating diet, ambulating - Review of Systems General: Denies: Fever, Weakness, Chills Pulmonary: Reports: no symptoms Cardiovascular: Reports: No Symptoms Gastrointestinal: Reports: No symptoms Musculoskeletal: Reports: back pain Systems Review Comment:: Mr. Degroot is a 66-year-old gentleman who was admitted through the night after having consumed a half a bottle of rubbing alcohol. He has a long-standing history of alcohol and substance abuse. He moved to this area recently to live with his daughter is he was previously homeless and abuse and alcohol on a regular basis. Poison control was contacted and they recommended observation only with no other interventions. He has remained stable through the night with good vital signs and has remained afebrile. He denies any suicidal ideation or intent. - Patient Data Vitals - most recent: Last Vital Signs Temp 98.1 F 10/23/16 10:00 Pulse 53 L 10/23/16 10:00 Resp 13 10/23/16 10:00 BP 143/59 H 10/23/16 10:00 Pulse Ox 95 10/23/16 10:00 Weight - most recent: 133 lb 2.547 oz I&O - last 24 hours: Intake & Output 10/22/16 10/23/16 10/23/16 22:59 06:59 14:59 Intake Total 568 Output Total 275 400 Balance 293 -400 Lab Results last 24 hrs: Laboratory Results - last 24 hr 10/23/16 10/23/16 10/23/16 Range/Units 01:03 01:15 01:15 WBC (4.5-11.0) K/uL RBC (4.30-5.90) M/uL Hgb (12.0-15.0) g/dL Hct (40.0-54.0) % MCV (80-98) fL MCH (27-31) pg MCHC (32-36) % Plt Count (150-400) K/uL Neut % (Auto) (36-66) % Lymph % (Auto) (24-44) % [place] % (Auto) (2-6) % Eos % (Auto) (2-4) % Baso % (Auto) (0-1) % Sodium (140-148) mmol/L Potassium (3.6-5.2) mmol/L Chloride (100-108) mmol/L Carbon Dioxide (21-32) mmol/L Anion Gap (5.0-14.0) mmol/L BUN (7-18) mg/dL Creatinine (0.8-1.3) mg/dL Est Cr Clr Drug Dosing mL/min Estimated GFR (MDRD) (>60) Glucose (74-106) mg/dL Calcium (8.5-10.1) mg/dL Total Bilirubin (0.2-1.0) mg/dL AST (15-37) U/L ALT (12-78) U/L Alkaline Phosphatase (46-116) U/L Total Protein (6.4-8.2) g/dL Albumin (3.4-5.0) g/dL Globulin (2.3-3.5) g/dL Albumin/Globulin Ratio (1.2-2.2) Urine Color Yellow Urine Appearance Clear Urine pH 8.0 (4.5-8.0) Ur Specific [place] 1.010 (1.008-1.030) Urine Protein Negative (NEGATIVE) mg/dL Urine Glucose (UA) Normal (NEGATIVE) mg/dL Urine Ketones Negative (NEGATIVE) mg/dL Urine Occult Blood Negative (NEGATIVE) Urine Nitrite Negative (NEGAITVE) Urine Bilirubin Negative (NEGATIVE) Urine Urobilinogen Normal (NORMAL) mg/dL Ur Leukocyte Esterase Negative (NEGATIVE) Urine RBC 0-5 (0-5) Urine WBC 0-5 (0-5) Ur Epithelial Cells Rare Amorphous Sediment Not seen Urine Bacteria Few Urine Mucus Not seen Urine Opiates Screen Positive H (NEGATIVE) Ur Oxycodone Screen Negative (NEGATIVE) Urine Methadone Screen Negative (NEGATIVE) Ur Propoxyphene Screen Negative (NEGATIVE) Ur Barbiturates Screen Positive H (NEGATIVE) Phenytoin 17.8 (10.0-20.0) ug/mL Ur Tricyclics Screen Negative (NEGATIVE) Ur Phencyclidine Scrn Negative (NEGATIVE) Ur Amphetamine Screen Negative (NEGATIVE) U Methamphetamines Scrn Negative (NEGATIVE) Urine MDMA Screen Negative (NEGATIVE) U Benzodiazepines Scrn Positive H (NEGATIVE) U Cocaine Metab Screen Negative (NEGATIVE) U Marijuana (THC) Screen Negative (NEGATIVE) 10/23/16 10/23/16 Range/Units 05:00 05:00 WBC 5.7 (4.5-11.0) K/uL RBC 3.67 L (4.30-5.90) M/uL Hgb 13.0 (12.0-15.0) g/dL Hct 36.5 L (40.0-54.0) % MCV 100 H (80-98) fL MCH 35 H (27-31) pg MCHC 36 (32-36) % Plt Count 175 (150-400) K/uL Neut % (Auto) 49 (36-66) % Lymph % (Auto) 39 (24-44) % [place] % (Auto) 8 H (2-6) % Eos % (Auto) 3 (2-4) % Baso % (Auto) 1 (0-1) % Sodium 144 (140-148) mmol/L Potassium 3.8 (3.6-5.2) mmol/L Chloride 108 (100-108) mmol/L Carbon Dioxide 30 (21-32) mmol/L Anion Gap 6.3 (5.0-14.0) mmol/L BUN 6 L (7-18) mg/dL Creatinine 1.0 (0.8-1.3) mg/dL Est Cr Clr Drug Dosing 62.08 mL/min Estimated GFR (MDRD) > 60 (>60) Glucose 102 (74-106) mg/dL Calcium 7.6 L (8.5-10.1) mg/dL Total Bilirubin 0.3 (0.2-1.0) mg/dL AST 16 (15-37) U/L ALT 21 (12-78) U/L Alkaline Phosphatase 76 (46-116) U/L Total Protein 5.8 L (6.4-8.2) g/dL Albumin 3.4 (3.4-5.0) g/dL Globulin 2.4 (2.3-3.5) g/dL Albumin/Globulin Ratio 1.4 (1.2-2.2) Urine Color Urine Appearance Urine pH (4.5-8.0) Ur Specific [place] (1.008-1.030) Urine Protein (NEGATIVE) mg/dL Urine Glucose (UA) (NEGATIVE) mg/dL Urine Ketones (NEGATIVE) mg/dL Urine Occult Blood (NEGATIVE) Urine Nitrite (NEGAITVE) Urine Bilirubin (NEGATIVE) Urine Urobilinogen (NORMAL) mg/dL Ur Leukocyte Esterase (NEGATIVE) Urine RBC (0-5) Urine WBC (0-5) Ur Epithelial Cells Amorphous Sediment Urine Bacteria Urine Mucus Urine Opiates Screen (NEGATIVE) Ur Oxycodone Screen (NEGATIVE) Urine Methadone Screen (NEGATIVE) Ur Propoxyphene Screen (NEGATIVE) Ur Barbiturates Screen (NEGATIVE) Phenytoin (10.0-20.0) ug/mL Ur Tricyclics Screen (NEGATIVE) Ur Phencyclidine Scrn (NEGATIVE) Ur Amphetamine Screen (NEGATIVE) U Methamphetamines Scrn (NEGATIVE) Urine MDMA Screen (NEGATIVE) U Benzodiazepines Scrn (NEGATIVE) U Cocaine Metab Screen (NEGATIVE) U Marijuana (THC) Screen (NEGATIVE) Med Orders - Current: Current Medications Hydrocodone Bitart/Acetaminophen ([place] 325-5 Mg) 1 tab PO Q4H PRN PRN Reason: Pain (moderate 4-6) Last Admin: 10/23/16 07:23 Dose: 1 tab Hydrocodone Bitart/Acetaminophen ([place] 325-10 Mg) 1 tab PO Q8H [facility] Alprazolam (Xanax) 0.5 mg PO BID PRN PRN Reason: Anxiety Citalopram Hydrobromide (Celexa) 30 mg PO DAILY [facility] Docusate Sodium (Colace) 100 mg PO BID [facility] Furosemide (Lasix) 20 mg PO DAILY [facility] Heparin Sodium (Porcine) (Heparin Sodium) 5,000 units SUBCUT Q8H [facility] Sodium Chloride (Normal Saline) 1,000 mls @ 150 mls/hr IV ASDIRECTED [facility] Last Admin: 10/23/16 07:51 Dose: 150 mls/hr Nicotine (Habitrol) 21 mg TRDERM DAILY [facility] Non-Formulary Medication (Alprazolam [Alprazolam]) 1 mg PO Q8H [facility] Non-Formulary Medication (Fentanyl [Fentanyl]) 50 mcg TOP Q3D [facility] Non-Formulary Medication (Phenobarbital [Phenobarbital]) 97.2 mg PO BID [facility] Ondansetron HCl (Zofran Odt) 4 mg PO Q6H PRN PRN Reason: Nausea able to take PO Pantoprazole Sodium (Protonix) 40 mg PO DAILY@0730 [facility] Last Admin: 10/23/16 07:50 Dose: 40 mg Pantoprazole Sodium (Protonix) 40 mg PO DAILY [facility] Phenytoin Sodium (Phenytoin) 200 mg PO BID [facility] Promethazine HCl (Phenergan) 25 mg PO Q6H PRN PRN Reason: Nausea able to take PO Discontinued Medications Heparin Sodium (Porcine) (Heparin Sodium) 5,000 units SUBCUT Q8H [facility] Last Admin: 10/23/16 03:05 Dose: Not Given - Exam Quality Assessment: DVT prophylaxis General: alert, oriented, cooperative Lungs: Clear to auscultation, Normal respiratory effort Cardiovascular: Regular Rate, Regular Rhythm, No Murmurs Abdomen: bowel sounds present, soft, no tenderness, no distension Extremities: no edema Skin: warm, dry, intact - Problem List Review Problem List Initiated/Reviewed/Updated: Yes - My Orders Last 24 Hours: My Active Orders 10/23/16 10:15 ALPRAZolam [Alprazolam] 1 mg PO Q8H Acetaminophen/HYDROcodone [[place] 325-10 MG] 1 tab PO Q8H Citalopram [Celexa] 30 mg PO DAILY Furosemide [Lasix] 20 mg PO DAILY Nicotine [Habitrol] 21 mg TRDERM DAILY PHENobarbital [Phenobarbital] 97.2 mg PO BID Pantoprazole [ProTONIX] 40 mg PO DAILY Phenytoin 200 mg PO BID fentaNYL [Fentanyl] 50 mcg TOP Q3D 10/23/16 21:00 Docusate Sodium [Colace] 100 mg PO BID 10/23/16 Breakfast Regular Diet [DIET] - Plan Plan:: ASSESSMENT AND PLAN RUBBING ALCOHOL INGESTION-he has a long-standing history of alcohol abuse, states that he drank the rubbing alcohol he did not have any alcohol available to drink. He denies any suicidal ideation or intent. He is been stable since admission with no obvious abnormalities in hemodynamics or laboratory tests. -Continue to monitor ANXIETY AND DEPRESSION -Continue outpatient medical management LONG-STANDING HISTORY OF ALCOHOL ABUSE -Encourage patient to consider inpatient treatment SEIZURE DISORDER -Continue outpatient medical management THYROID MASS-he has an outpatient appointment scheduled later this week for evaluation with ENT. -Outpatient ENT followup as noted HISTORY OF ASBESTOS EXPOSURE-patient gives a history of mesothelioma, on review of records there is no evidence of underlying malignancy. Previous and recent CT scans have shown evidence of pleural plaques but no malignancy. MAINTENANCE ISSUES -DVT prophylaxis; continue current DVT prophylaxis -GI prophylaxis; continue outpatient PPI therapy -Chavarria catheter; not indicated -Nutrition; regular diet -Nicotine dependence; 21 mg nicotinic patch CODE STATUS-FULL CODE ADMISSION STATUS-patient will be admitted to inpatient status, expect at least a 2 night hospital stay for evaluation and management of problems as outlined above. At the time of this admission I do not reasonably expected evaluation and management of this problem will require more than a 96 hour hospital stay. DISPOSITION-anticipate discharge to home after the hospital stay. PRIMARY CARE PROVIDER-Dr. Castillo
[2016-10-23] MEDS: Furosemide 20 MG Tab PO SCH (10:49)
[2016-10-23] MEDS: Citalopram 10 MG Tab PO SCH (10:49)
[2016-10-23] MEDS: Phenytoin 100 MG Cap.ER PO SCH ×2 (10:51→20:49)
[2016-10-23] MEDS: PHENobarbital 32.4 MG Tab PO SCH ×2 (10:51→20:51)
[2016-10-23] MEDS: Nicotine 21 MG/24 Hr Patch TRDERM SCH (10:52)
[2016-10-23] MEDS: Acetaminophen/HYDROcodone 325-10 MG Tab PO SCH ×2 (10:55→17:23)
[2016-10-23] MEDS: ALPRAZolam 0.5 MG Tab PO SCH ×2 (11:36→20:49)
[2016-10-23] MEDS: [UNRECOGNIZED DRUG - REMARK] TOP SCH ×2 (12:10→21:00)
[2016-10-23] MEDS ORDERED: ALPRAZolam 0.5 MG Tab PO SCH (14:00)
[2016-10-23] MEDS: Docusate Sodium 100 MG Cap PO SCH (20:49)
[2016-10-24] MEDS: Acetaminophen/HYDROcodone 325-10 MG Tab PO SCH ×2 (02:38→10:48)
[2016-10-24] MEDS: Sodium Chloride 0.9% 1,000 ML IV SCH ×2 (03:40→10:21)
[2016-10-24] MEDS: ALPRAZolam 0.5 MG Tab PO SCH ×2 (04:25→12:56)
[2016-10-24] MEDS: Heparin Sodium 5,000 Units/ML Vial SUBCUT SCH ×2 (04:25→12:52)
[2016-10-24] MEDS: Pantoprazole 40 MG Tab.CR PO SCH (08:52)
[2016-10-24] MEDS: Citalopram 10 MG Tab PO SCH (08:52)
[2016-10-24] MEDS: Furosemide 20 MG Tab PO SCH (08:53)
[2016-10-24] MEDS: Docusate Sodium 100 MG Cap PO SCH (08:53)
[2016-10-24] MEDS: Phenytoin 100 MG Cap.ER PO SCH (08:57)
[2016-10-24] MEDS: [UNRECOGNIZED DRUG - REMARK] TOP SCH (08:57)
[2016-10-24] MEDS: Nicotine 21 MG/24 Hr Patch TRDERM SCH (08:58)
[2016-10-24] MEDS ORDERED: fentaNYL 50 MCG/HR Transdermal Patch TOP SCH (09:00)
[2016-10-24] MEDS: PHENobarbital 32.4 MG Tab PO SCH (09:05)
[2016-10-24] MEDS: Acetaminophen/HYDROcodone 325-5 MG Tab PO PRN (15:27)
[2016-10-24 15:31] VITALS: BP 129/63
--- NOTE | 2016-10-24 16:24 | PCM.DCSUM1 ---
Discharge Summary - Hospital Course Brief History: This patient is a 66-year-old gentleman who was admitted through the emergency room to observation status following consumption of isopropyl alcohol. - Discharge Data Discharge Date: 10/24/16 Discharge Disposition: Home, W Home Health Agency 06 Condition: Fair - Discharge Diagnosis/Problem(s) (1) Isopropyl alcohol poisoning SNOMED Code(s): 953366396 ICD Code: T51.2X1A - TOXIC EFFECT OF 2-PROPANOL, ACCIDENTAL (UNINTENTIONAL), INIT Status: Acute Current Visit: Yes (2) Anxiety and depression SNOMED Code(s): 572764632 ICD Code: F41.9 - ANXIETY DISORDER, UNSPECIFIED; F32.9 - MAJOR DEPRESSIVE DISORDER, SINGLE EPISODE, UNSPECIFIED Status: Acute Current Visit: Yes (3) Alcohol abuse SNOMED Code(s): 18385424 ICD Code: F10.10 - ALCOHOL ABUSE, UNCOMPLICATED Status: Acute Current Visit: Yes (4) Seizure disorder SNOMED Code(s): 766539104 ICD Code: G40.909 - EPILEPSY, UNSP, NOT INTRACTABLE, WITHOUT STATUS EPILEPTICUS Status: Acute Current Visit: Yes - Patient Summary/Data Hospital Course: Mr. Degroot is a 66-year-old gentleman with a known history of chronic alcohol abuse. The evening of admission he consumed approximately half bottle of isopropyl alcohol and was brought into the emergency department for further evaluation and management. Poison control was contacted and they recommended observation admission but no other interventions. Laboratory studies were obtained prior to admission and showed no significant abnormalities. He was monitored in the intensive care unit and remained stable throughout his hospital stay. He was seen by the crisis team for psychiatric assessments and they felt that he was not at risk for suicide. He was also seen for chemical dependency assessment and will be scheduled for further outpatient evaluation and treatment. He will followup mental health within one week. Activity will be as tolerated and he will resume his usual diet. He will be discharged home under the care of his daughter and will have a followup appointment with his primary care provider within one week. - Patient Instructions Diet: Usual Diet as Tolerated Activity: As Tolerated Other/Special Instructions: Please arrange for home care with home physical therapy after discharge. Please schedule followup appointment with his primary care provider within one week. - Discharge Plan Home Medications: Home Meds Docusate Sodium [Colace] 100 mg PO BID #60 cap 09/16/16 [Rx] Nicotine [Habitrol] 21 mg TRDERM DAILY #30 patch 09/16/16 [Rx] PHENobarbital [Phenobarbital] 97.2 mg PO BID #60 tablet 09/16/16 [Rx] Pantoprazole [ProTONIX] 40 mg PO DAILY #30 tab.cr 09/16/16 [Rx] Phenytoin 200 mg PO BID #60 cap.er 09/16/16 [Rx] ALPRAZolam [Alprazolam] 1 mg PO Q8H 10/22/16 [History] Acetaminophen/HYDROcodone [[place] 325-10 MG] 1 tab PO Q8H 10/22/16 [History] Citalopram [Citalopram HBr] 30 mg PO DAILY 10/22/16 [History] Furosemide [Lasix] 20 mg PO DAILY 10/22/16 [History] fentaNYL [Fentanyl] 50 mcg TOP Q3D 10/22/16 [History] Referrals: Jamel Castillo MD [Primary Care Provider] - ([facility] and adult case management, as well as [facility] care.) - Patient Data Vitals - Most Recent: Last Vital Signs Temp 97.9 F 10/24/16 15:00 Pulse 54 L 10/24/16 15:00 Resp 16 10/24/16 15:00 BP 129/63 10/24/16 15:00 Pulse Ox 98 10/24/16 15:00 Weight - Most Recent: 143 lb 0.01 oz I&O - Last 24 hours: Intake & Output 10/24/16 10/24/16 10/24/16 06:59 14:59 22:59 Intake Total 2075 240 640 Output Total 1375 990 Balance 700 -750 640 Med Orders - Current: Current Medications Hydrocodone Bitart/Acetaminophen ([place] 325-5 Mg) 1 tab PO Q4H PRN PRN Reason: Pain (moderate 4-6) Last Admin: 10/24/16 15:27 Dose: 1 tab Hydrocodone Bitart/Acetaminophen ([place] 325-10 Mg) 1 tab PO Q8H [facility] Last Admin: 10/24/16 10:48 Dose: 1 tab Alprazolam (Xanax) 1 mg PO Q8H [facility] Last Admin: 10/24/16 12:56 Dose: 1 mg Citalopram Hydrobromide (Celexa) 30 mg PO DAILY [facility] Last Admin: 10/24/16 08:52 Dose: 30 mg Docusate Sodium (Colace) 100 mg PO BID [facility] Last Admin: 10/24/16 08:53 Dose: 100 mg Fentanyl (Duragesic) 50 mcg TOP Q3D [facility] Last Admin: 10/24/16 09:40 Dose: 50 mcg Furosemide (Lasix) 20 mg PO DAILY [facility] Last Admin: 10/24/16 08:53 Dose: 20 mg Heparin Sodium (Porcine) (Heparin Sodium) 5,000 units SUBCUT Q8H [facility] Last Admin: 10/24/16 12:52 Dose: 5,000 units Sodium Chloride (Normal Saline) 1,000 mls @ 150 mls/hr IV ASDIRECTED [facility] Last Admin: 10/24/16 10:21 Dose: 150 mls/hr Nicotine (Habitrol) 21 mg TRDERM DAILY [facility] Last Admin: 10/24/16 08:58 Dose: 21 mg Fentanyl Patch (Placement) 1 each TOP BID [facility] Last Admin: 10/24/16 08:57 Dose: Not Given Ondansetron HCl (Zofran Odt) 4 mg PO Q6H PRN PRN Reason: Nausea able to take PO Pantoprazole Sodium (Protonix) 40 mg PO DAILY@0730 [facility] Last Admin: 10/24/16 08:52 Dose: 40 mg Phenobarbital (Phenobarbital) 97.2 mg PO BID [facility] Last Admin: 10/24/16 09:05 Dose: 97.2 mg Phenytoin Sodium (Phenytoin) 200 mg PO BID [facility] Last Admin: 10/24/16 08:57 Dose: 200 mg Promethazine HCl (Phenergan) 25 mg PO Q6H PRN PRN Reason: Nausea able to take PO Discontinued Medications Alprazolam (Xanax) 0.5 mg PO BID PRN PRN Reason: Anxiety Alprazolam (Xanax) 1 mg PO Q8H [facility] Heparin Sodium (Porcine) (Heparin Sodium) 5,000 units SUBCUT Q8H [facility] Last Admin: 10/23/16 03:05 Dose: Not Given Pantoprazole Sodium (Protonix) 40 mg PO DAILY [facility] *Q Meaningful Use (DIS) - VTE *Q VTE Criteria *Q: - Stroke *Q Stroke Criteria *Q: - AMI *Q AMI Criteria *Q:
== END 2016-10-24 17:30 | disposition home health service (06) | DRG 918 ==
LOC: JP.ED 22:36 → JP.ICU 10-23 00:30 → JP.MS 10-24 08:20
PROVIDERS: ADMIT Family Medicine; ATTEND Hospitalist
DX: T51.2X1A Toxic effect of 2-Propanol, accidental (unintentional), initial encounter (principal); Y92.009 Unspecified place in unspecified non-institutional (private) residence as the place of occurrence of the external cause; F10.10 Alcohol abuse, uncomplicated; G40.909 Epilepsy, unspecified, not intractable, without status epilepticus; Y90.0 Blood alcohol level of less than 20 mg/100 ml; Z87.891 Personal history of nicotine dependence; M54.9 Dorsalgia, unspecified; G89.29 Other chronic pain; K21.9 Gastro-esophageal reflux disease without esophagitis; N40.0 Benign prostatic hyperplasia without lower urinary tract symptoms; Z98.1 Arthrodesis status; F41.9 Anxiety disorder, unspecified; F32.9 Major depressive disorder, single episode, unspecified; H54.7 Unspecified visual loss; G47.00 Insomnia, unspecified; C45.7 Mesothelioma of other sites; C73 Malignant neoplasm of thyroid gland; Z88.0 Allergy status to penicillin
CPT/HCPCS: 36415; 80053; 83930; 85025; 99284; G0480 ×2; J7040; 80185; 80305; 81001; 83935; 93005; 97161-GP; 97165-GO; 99285; A9270-GY; J1644

== ENCOUNTER 2016-11-18 16:52 | Emergency (ER) | payer MEDICARE, MEDICAID, OTHER ==
[2016-11-18] MEDS ORDERED: LORazepam 2 MG/ML MDV IVPUSH ONE (16:56)
[2016-11-18] MEDS ORDERED: Sodium Chloride 0.9% 1,000 ML IV SCH (17:00)
[2016-11-18] MEDS ORDERED: HYDROmorphone 1 MG/ML Syringe IVPUSH ONE (17:29)
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
[2016-11-18] MEDS ORDERED: Acetaminophen/oxyCODONE 325-5 MG Tab PO ONE (21:24)
[2016-11-19] MEDS ORDERED: Acetaminophen/HYDROcodone 325-5 MG Tab PO ONE (01:10)
[2016-11-19] MEDS ORDERED: Ibuprofen 600 MG Tab PO ONE (01:10)
[2016-11-19 01:38] VITALS: BP 142/68
--- NOTE | 2016-11-20 09:10 | CR ---
Heart size within normal limits. No focal consolidation. Pulmonary vasculature within normal limits. Old right rib fractures.
== END 2016-11-19 04:10 ==
LOC: JP.ED 16:52
DX: R45.851 Suicidal ideations (principal); F17.210 Nicotine dependence, cigarettes, uncomplicated; Z85.118 Personal history of other malignant neoplasm of bronchus and lung; Z85.850 Personal history of malignant neoplasm of thyroid; Z79.899 Other long term (current) drug therapy; Z98.1 Arthrodesis status; Z98.890 Other specified postprocedural states; Z88.0 Allergy status to penicillin
CPT/HCPCS: 36415; 71010; 80053; 80184; 80185; 80305; 81001; 82550; 85025; 85610; 93005; 96361; 96374; 96375; 99285; A9270; G0480; J1170; J2060; J7040; 93010

== ENCOUNTER 2018-12-01 05:52 | Emergency (ER) | payer MEDICARE ==
[2018-12-01 06:02] VITALS: BP 115/59
--- NOTE | 2018-12-01 06:25 | EDM.PDOCBH ---
ED HPI GENERAL MEDICAL PROBLEM - General Chief Complaint: Behavioral/Psych Stated Complaint: MEDICAL VIA [facility] Time Seen by Provider: 12/01/18 06:10 Source of Information: Reports: Patient, EMS, Police History Limitations: Reports: No Limitations - History of Present Illness INITIAL COMMENTS - FREE TEXT/NARRATIVE: 60-year-old male with a long history of depression and mental illness is scheduled to have a cholecystectomy today but last evening he got a hold of something sharp and put some superficial lacerations into his right forearm. The nurse's found these this morning so sent him in to be evaluated. They are all superficial, a few have some Steri-Strips applied by nursing but none need repair. He claims he was "angry at himself" but did not want to hurt himself significantly and no longer has any self-harm intention. He otherwise feels fine. He does have a flat affect. Location: Reports: Upper Extremity, Left Associated Symptoms: Reports: Other (Recurring abdominal pain when eating) - Related Data Allergies Allergy/AdvReac Type Severity Reaction Status Date / Time Penicillins Allergy Severe Anaphylactic Verified 12/01/18 07:12 Shock Home Meds: Home Meds PHENobarbital [Phenobarbital] 97.2 mg PO BID #60 tablet 09/16/16 [Rx] Phenytoin 200 mg PO BID #60 cap.er 09/16/16 [Rx] Citalopram [Citalopram HBr] 30 mg PO DAILY 10/22/16 [History] Albuterol Sulfate [Albuterol Sulfate Hfa] 2 puff INH Q4HR PRN 11/28/18 [History] Apixaban [Eliquis] 5 mg PO BID 11/28/18 [History] Folic Acid 1 mg PO DAILY 11/28/18 [History] Losartan Potassium 25 mg PO DAILY 11/28/18 [History] Metoprolol Succinate [Toprol XL 50mg] 50 mg PO DAILY 11/28/18 [History] Multivitamin with Minerals [Multiple Vitamin] 1 tab PO DAILY 11/28/18 [History] Nitroglycerin 0.4 mg SL ASDIRECTED 11/28/18 [History] Omeprazole 20 mg PO DAILY 11/28/18 [History] Tamsulosin HCl 0.4 mg PO DAILY 11/28/18 [History] Thiamine HCl [Vitamin B-1] 100 mg PO DAILY 11/28/18 [History] fentaNYL [Fentanyl] 50 mcg TOP .Q3DAY 11/28/18 [History] traZODone HCl [Trazodone HCl] 150 mg PO BEDTIME 11/28/18 [History] Acetaminophen [Tylenol] 650 mg PO Q4H PRN 12/01/18 [History] Past Medical History HEENT History: Reports: Impaired Vision Cardiovascular History: Reports: CAD, Heart Failure, Hypertension Respiratory History: Reports: COPD, PE, Other (See Below) Other Respiratory History: calcified pleural plaque on chest x-ray. Mesothelioma of both lungs Gastrointestinal History: Reports: Cholelithiasis, GERD Genitourinary History: Reports: BPH Other Genitourinary History: recent kidney function issue but undiagnoised at this time Musculoskeletal History: Reports: Back Pain, Chronic, Fracture, Osteoporosis Neurological History: Reports: Neuropathy, Peripheral, Seizure Psychiatric History: Reports: Addiction, Depression, Eating Disorders, Suicide Attempt Other Psychiatric History: Malnutrition. Insomnia Endocrine/Metabolic History: Reports: Other (See Below) Other Endocrine/Metabolic History: recent elevated blood sugars, undiagnoised. thyroid cancer, failed to go to surgery on 09/01/16 Hematologic History: Reports: Anticoagulation Therapy Immunologic History: Reports: None Oncologic (Cancer) History: Reports: Lung, Thyroid Other Oncologic History: s/s of mesotheleoma Dermatologic History: Reports: None - Infectious Disease History Infectious Disease History: Reports: Chicken Pox - Past Surgical History GI Surgical History: Reports: Esophageal Dilatation Neurological Surgical History: Reports: Spinal Fusion Social & Family History - Family History Family Medical History: Noncontributory - Tobacco Use Smoking Status *Q: Current Every Day Smoker Years of Tobacco use: 52 Packs/Tins Daily: 1 - Caffeine Use Caffeine Use: Reports: Coffee, Energy Drinks - Recreational Drug Use Recreational Drug Use: No - Living Situation & Occupation Living situation: Reports: , with Family Occupation: Disabled ED ROS GENERAL - Review of Systems Review Of Systems: See Below Constitutional: Denies: Fever, Chills Respiratory: Denies: Shortness of Breath Cardiovascular: Denies: Chest Pain GI/Abdominal: Reports: Abdominal Pain (When eating) : Reports: No Symptoms Psychiatric: Reports: Depression ED EXAM, BEHAVIORAL HEALTH - Physical Exam Exam: See Below Exam Limited By: No Limitations General Appearance: Alert, No Apparent Distress Eye Exam: Bilateral Eye: Other (no jaundice) Respiratory/Chest: No Respiratory Distress Cardiovascular: Regular Rate, Rhythm GI/Abdominal: Soft, Tender (He is tender to palpation across the upper abdomen, especially the right upper quadrant) Extremities: Other (Thin, no edema. Patient has roughly 20 superficial lacerations on the flexor surface of the right forearm) Neurological: Alert Psychiatric: Flat Affect. No: Depressed Mood, Disoriented COURSE, BEHAVIORAL HEALTH COMP - Course Vital Signs: Last Vital Signs Temp 96 F 12/01/18 05:59 Pulse 48 L 12/01/18 05:59 Resp 15 12/01/18 05:59 BP 115/59 L 12/01/18 05:59 Pulse Ox 98 12/01/18 05:59 Re-Assessment/Re-Exam: Patient will be discharged and readmitted for his surgery. While recuperating from surgery a psychiatric eval may be obtained while an inpatient. Departure - Departure Time of Disposition: 06:26 Disposition: Home, Self-Care 01 Clinical Impression: Self-inflicted injury Laceration of arm, right, multiple sites Qualifiers: Encounter type: initial encounter Qualified Code(s): S41.111A - Laceration without foreign body of right upper arm, initial encounter Abdominal pain Qualifiers: Abdominal location: right upper quadrant Qualified Code(s): R10.11 - Right upper quadrant pain - Discharge Information Referrals: PCP,None [Primary Care Provider] - Forms: ED Department Discharge Care Plan Goals: Patient is discharged to be readmitted for surgery as scheduled. A psychiatric evaluation can be considered while an inpatient.
== END 2018-12-01 06:26 | disposition home or self-care (01) ==
LOC: JP.ED 05:52
DX: S41.111A Laceration without foreign body of right upper arm, initial encounter (principal); F17.210 Nicotine dependence, cigarettes, uncomplicated; I11.0 Hypertensive heart disease with heart failure; I50.9 Heart failure, unspecified; I25.10 Atherosclerotic heart disease of native coronary artery without angina pectoris; F32.9 Major depressive disorder, single episode, unspecified; R10.11 Right upper quadrant pain; E11.42 Type 2 diabetes mellitus with diabetic polyneuropathy; Z79.899 Other long term (current) drug therapy; Z79.01 Long term (current) use of anticoagulants; Z88.0 Allergy status to penicillin; Z90.49 Acquired absence of other specified parts of digestive tract; X78.9XXA Intentional self-harm by unspecified sharp object, initial encounter
CPT/HCPCS: 99283

== ENCOUNTER 2018-12-01 06:35 | Day surgery (SDC) | payer MEDICAID, MEDICARE, OTHER ==
[~2018-12-01 06:35] MED LIST: Clindamycin Phosphate 900 MG in Sodium Chloride 0.9% 100 ML IV ONE; Dextrose 5%-Lactated Ringers 1,000 ML IV SCH; Levofloxacin/Dextrose 5%-Water 500 MG in Premix Bag 1 BAG IV ONE
[2018-12-01] MEDS ORDERED: Lidocaine 1% with EPINEPHrine 1:100,000 50 ML MDV ONE (06:40)
[2018-12-01] MEDS ORDERED: Bupivacaine 0.5% 50 ML MDV ONE (06:41)
[2018-12-01] MEDS ORDERED: Rocuronium 50 MG/5 ML Vial ONE (07:36)
[2018-12-01] MEDS ORDERED: Propofol 200 MG/20 ML SDV ONE (07:36)
[2018-12-01] MEDS ORDERED: Neostigmine Methylsulfate 1 MG/ML 5 ML Syringe ONE (07:36)
[2018-12-01] MEDS ORDERED: Glycopyrrolate 0.2 MG/ML 5 ML MDV ONE (07:36)
[2018-12-01] MEDS ORDERED: Ondansetron 4 MG/2 ML SDV ONE (07:36)
[2018-12-01] MEDS ORDERED: Dexamethasone 4 MG/ML SDV ONE (07:36)
[2018-12-01] MEDS ORDERED: fentaNYL 250 MCG/5 ML SDV ONE (07:36)
[2018-12-01] MEDS ORDERED: fentaNYL 100 MCG/2 ML SDV ONE (08:46)
[2018-12-01] MEDS ORDERED: fentaNYL 100 MCG/2 ML SDV IVPUSH ONE ×2 (09:16→09:30)
[2018-12-01] MEDS ORDERED: hydrOXYzine HCl 100 MG/2 ML SDV IM ONE (09:16)
[2018-12-01] MEDS ORDERED: Acetaminophen 325 MG Tab PO PRN (09:24)
[2018-12-01] MEDS ORDERED: Albuterol 8 GM Inhaler INH PRN (09:24)
[2018-12-01] MEDS ORDERED: Docusate Sodium 100 MG Cap PO PRN (09:26)
[2018-12-01] MEDS ORDERED: fentaNYL 100 MCG/2 ML SDV IVPUSH PRN (09:26)
[2018-12-01] MEDS ORDERED: Nitroglycerin 0.4 MG Tab.SL SL PRN (09:30)
[2018-12-01] MEDS: Lactated Ringers 1,000 ML IV SCH ×2 (11:32→19:24)
[2018-12-01] MEDS: Acetaminophen/HYDROcodone 325-5 MG Tab PO PRN (13:24)
[2018-12-01] MEDS: [UNRECOGNIZED DRUG - REMARK] TOP SCH ×2 (13:24→21:21)
[2018-12-01] MEDS: traZODone 50 MG Tab PO SCH (21:20)
[2018-12-01] MEDS: PHENobarbital 32.4 MG Tab PO SCH (21:20)
[2018-12-01] MEDS: Phenytoin 100 MG Cap.ER PO SCH (21:21)
[2018-12-02] MEDS: Lactated Ringers 1,000 ML IV SCH ×3 (03:16→19:26)
[2018-12-02] MEDS: Acetaminophen/HYDROcodone 325-5 MG Tab PO PRN ×4 (05:32→20:22)
--- NOTE | 2018-12-02 07:49 | OR ---
DATE OF PROCEDURE: 12/01/2018 PREOPERATIVE DIAGNOSIS: Chronic cholecystitis with cholelithiasis. POSTOPERATIVE DIAGNOSES: Cholecystitis with cholelithiasis. PROCEDURE: Laparoscopic cholecystectomy. SURGEON: Jony Servin MD ANESTHESIA: IV anesthesia with monitored anesthesia care. INDICATION: This is a 68-year-old white male who complains of intermittent episodes of right upper quadrant abdominal pain, especially after eating. This has caused him not to eat much, resulting in significant weight loss. He had a CAT scan, which showed cholelithiasis. He was scheduled for laparoscopic cholecystectomy three months ago, but he did not undergo it at that time because apparently he was afraid of the procedure; however his continued problems caused him now to come by requesting me to take his gallbladder out. I counseled him for surgery, including risks and alternatives, and he gave his informed consent to proceed. DESCRIPTION OF PROCEDURE: After adequate general endotracheal anesthesia was obtained, the patient's abdomen was prepped and draped in usual sterile fashion. Time-out was held. An infraumbilical semicircular incision was made. Under direct vision, a 12-mm port was introduced into the abdomen. Using the Optiview technique, the camera was introduced into the abdomen, and the abdomen was insufflated to a pressure of 15 mmHg with carbon dioxide. No evidence of intraabdominal injury was seen. Under direct vision a 12 mm port was placed in the epigastrium and a 5-mm port was placed in the right lower quadrant. The gallbladder was grasped and elevated. It was noted there were multiple adhesions of omentum to it, these were dissected free. The cystic duct and artery were dissected free, they were each clipped up in the gallbladder and 3 times proximally and divided between clips. The gallbladder was then dissected free from the gallbladder bed using Bovie electrocautery. This placed in a sample retrieval bag and elevated up through the anterior abdominal wall via the epigastric port site. It was noted to contain some stones. It was cultured off the field. The epigastric port was reintroduced back in the abdomen. There was some bleeding from the cystic artery, which then had to be clipped several times more, all than looked well. The fascial closure device was used to place an 0 Vicryl stitch in the epigastric fascial defect. The infraumbilical port was removed with an interrupted stitch of 0 Vicryl used to close this fascial defect. We evacuated as much CO2 as we could from the abdomen via the 5-mm port site in the right lower quadrant and then this port was removed. Lidocaine 1% with epinephrine in a 50:50 mix with 0.5% Marcaine was infiltrated about all incisions, 4-0 Vicryl using a subcuticular stitch was placed to approximate the skin incisions. Dermabond was applied. The anesthesia was reversed, he was extubated and brought to recovery room in good condition. Jony Servin MD /[id number]
[2018-12-02] MEDS: Pantoprazole 40 MG Tab.CR PO SCH (08:48)
[2018-12-02] MEDS: Multivitamins with Iron/Calcium/Folic Acid/Minerals Tab PO SCH (08:49)
[2018-12-02] MEDS: Losartan 25 MG Tab PO SCH (08:51)
[2018-12-02] MEDS: Citalopram 10 MG Tab PO SCH (08:51)
[2018-12-02] MEDS: Metoprolol Succinate 50 MG Tab.ER PO SCH (08:52)
[2018-12-02] MEDS: Folic Acid 1 MG Tab PO SCH (08:52)
[2018-12-02] MEDS: Tamsulosin 0.4 MG Cap.ER PO SCH (08:53)
[2018-12-02] MEDS: PHENobarbital 32.4 MG Tab PO SCH ×2 (08:59→20:21)
[2018-12-02] MEDS ORDERED: fentaNYL 50 MCG/HR Transdermal Patch TOP SCH (09:00)
[2018-12-02] MEDS: Phenytoin 100 MG Cap.ER PO SCH ×2 (09:06→20:21)
[2018-12-02] MEDS: Thiamine 100 MG Tab PO SCH (09:07)
[2018-12-02] MEDS: [UNRECOGNIZED DRUG - REMARK] TOP SCH ×2 (09:20→20:22)
--- NOTE | 2018-12-02 17:56 | PCM.SURGPN ---
- General Info Date of Service: 12/02/18 Date of Surgery/Procedure: 12/01/18 POD#: 1 Post-Op Diagnosis: Chronic cholecystitis with cholelithiasis Functional Status: Reports: Pain Controlled, Tolerating Diet, Ambulating - Review of Systems General: Reports: No Symptoms HEENT: Reports: No Symptoms Pulmonary: Reports: No Symptoms Cardiovascular: Reports: No Symptoms Gastrointestinal: Reports: No Symptoms Genitourinary: Reports: No Symptoms Musculoskeletal: Reports: No Symptoms Skin: Reports: No Symptoms Neurological: Reports: No Symptoms Psychiatric: Reports: No Symptoms, Other (He says the scratchings on his arm is thing of the past. He says he is fine now.). Denies: Suicidal Ideation, Homicidal Ideation - Patient Data Vitals - Most Recent: Last Vital Signs Temp 97.8 F 12/02/18 03:00 Pulse 68 12/02/18 08:52 Resp 12 12/02/18 03:00 BP 107/54 L 12/02/18 08:52 Pulse Ox 93 L 12/02/18 10:00 Weight - Most Recent: 121 lb 15.99 oz I&O - Last 24 Hours: Intake & Output 12/02/18 12/02/18 12/02/18 06:59 14:59 22:59 Intake Total 1495 2322 Output Total 600 300 Balance 895 2022 Lab Results Last 24 Hrs: Laboratory Results - last 24 hr 12/02/18 12/02/18 Range/Units 05:49 05:49 WBC 7.9 (4.5-11.0) K/uL RBC 4.04 L (4.30-5.90) M/uL Hgb 14.1 (12.0-15.0) g/dL Hct 40.6 (40.0-54.0) % MCV 101 H (80-98) fL MCH 35 H (27-31) pg MCHC 35 (32-36) % Plt Count 195 (150-400) K/uL Total Bilirubin 0.4 (0.2-1.0) mg/dL Direct Bilirubin 0.16 (0.0-0.2) mg/dL Indirect Bilirubin 0.24 AST 30 (15-37) U/L ALT 23 (12-78) U/L Alkaline Phosphatase 102 (46-116) U/L Total Protein 5.3 L (6.4-8.2) g/dL Albumin 2.7 L (3.4-5.0) g/dL Globulin 2.6 (2.3-3.5) g/dL Albumin/Globulin Ratio 1.0 L (1.2-2.2) [place] Results Last 24 Hrs: Microbiology 12/01/18 08:50 Gram Stain - Final Gallbladder Fluid - Bile Wound Culture - Preliminary NO GROWTH AFTER 1 DAY Anaerobic Culture - Preliminary NO GROWTH AFTER 1 DAY Med Orders - Current: Current Medications Acetaminophen (Tylenol) 650 mg PO Q4H PRN PRN Reason: Pain Last Admin: 12/01/18 21:26 Dose: 650 mg Hydrocodone Bitart/Acetaminophen ([place] 325-5 Mg) 2 tab PO Q4H PRN PRN Reason: Pain (moderate 4-6) Last Admin: 12/02/18 14:02 Dose: 2 tab Albuterol (Ventolin Hfa) 0 gm INH Q4H PRN PRN Reason: Shortness of Breath Citalopram Hydrobromide (Celexa) 30 mg PO DAILY [facility] Last Admin: 12/02/18 08:51 Dose: 30 mg Docusate Sodium (Colace) 100 mg PO BID PRN PRN Reason: Constipation Fentanyl (Sublimaze) 50 mcg IVPUSH Q1H PRN PRN Reason: Pain (severe 7-10) Last Admin: 12/01/18 09:41 Dose: 50 mcg Fentanyl (Duragesic) 50 mcg TOP Q72H [facility] Last Admin: 12/02/18 09:20 Dose: 50 mcg Folic Acid (Folic Acid) 1 mg PO DAILY [facility] Last Admin: 12/02/18 08:52 Dose: 1 mg Dextrose/Lactated Ringer's (Dextrose 5%-Lactated Ringers) 1,000 mls @ 100 mls/ hr IV ASDIRECTED [facility] Last Admin: 12/01/18 07:47 Dose: 100 mls/hr Lactated Ringer's (Ringers, Lactated) 1,000 mls @ 125 mls/hr IV ASDIRECTED [facility] Last Admin: 12/02/18 11:36 Dose: 125 mls/hr Losartan Potassium (Cozaar) 25 mg PO DAILY [facility] Last Admin: 12/02/18 08:51 Dose: 25 mg Metoprolol Succinate (Toprol Xl) 50 mg PO DAILY [facility] Last Admin: 12/02/18 08:52 Dose: 50 mg Multivitamins/Minerals (Thera M Plus) 1 tab PO DAILY@0800 [facility] Last Admin: 12/02/18 08:49 Dose: 1 tab Nitroglycerin (Nitrostat) 0.4 mg SL ASDIRECTED PRN PRN Reason: CHEST PAIN Fentanyl Patch (Placement) 1 each TOP BID [facility] Last Admin: 12/02/18 09:20 Dose: 1 each Pantoprazole Sodium (Protonix) 40 mg PO DAILY@0730 [facility] Last Admin: 12/02/18 08:48 Dose: 40 mg Phenobarbital (Phenobarbital) 97.2 mg PO BID [facility] Last Admin: 12/02/18 08:59 Dose: 97.2 mg Phenytoin Sodium (Phenytoin) 200 mg PO BID [facility] Last Admin: 12/02/18 09:06 Dose: 200 mg Tamsulosin HCl (Flomax) 0.4 mg PO DAILY [facility] Last Admin: 12/02/18 08:53 Dose: 0.4 mg Thiamine HCl (Vitamin B-1) 100 mg PO DAILY [facility] Last Admin: 12/02/18 09:07 Dose: 100 mg Trazodone HCl (Trazodone) 150 mg PO BEDTIME [facility] Last Admin: 12/01/18 21:20 Dose: 150 mg Discontinued Medications Bupivacaine HCl (Marcaine 0.5%) Confirm Administered Dose 50 ml .ROUTE .STK-MED ONE Stop: 12/01/18 06:42 Last Admin: 12/01/18 08:36 Dose: 20 ml Dexamethasone (Dexamethasone) Confirm Administered Dose 4 mg .ROUTE .STK-MED ONE Stop: 12/01/18 07:37 Fentanyl (Sublimaze) Confirm Administered Dose 250 mcg .ROUTE .STK-MED ONE Stop: 12/01/18 07:37 Fentanyl (Sublimaze) Confirm Administered Dose 100 mcg .ROUTE .STK-MED ONE Stop: 12/01/18 08:47 Fentanyl (Sublimaze) 50 mcg IVPUSH ONETIME ONE Stop: 12/01/18 09:17 Last Admin: 12/01/18 09:26 Dose: 50 mcg Fentanyl (Sublimaze) 50 mcg IVPUSH ONETIME ONE Stop: 12/01/18 09:31 Last Admin: 12/01/18 11:04 Dose: Not Given Glycopyrrolate (Robinul) Confirm Administered Dose 1 mg .ROUTE .STK-MED ONE Stop: 12/01/18 07:37 Hydroxyzine HCl (Vistaril) 50 mg IM ONETIME ONE Stop: 12/01/18 09:17 Last Admin: 12/01/18 09:30 Dose: 50 mg Clindamycin Phosphate 900 mg/ (Sodium Chloride) 106 mls @ 200 mls/hr IV ONETIME ONE Stop: 12/01/18 07:01 Last Admin: 12/01/18 07:57 Dose: 200 mls/hr Levofloxacin/Dextrose 500 mg/ (Premix) 100 mls @ 100 mls/hr IV ONETIME ONE Stop: 12/01/18 07:29 Last Admin: 12/01/18 08:00 Dose: 100 mls/hr Lidocaine/Epinephrine (Xylocaine 1% With Epinephrine 1:100,000) Confirm Administered Dose 50 ml .ROUTE .STK-MED ONE Stop: 12/01/18 06:41 Last Admin: 12/01/18 08:36 Dose: 20 ml Neostigmine Methylsulfate (Neostigmine) Confirm Administered Dose 5 mg .ROUTE .STK-MED ONE Stop: 12/01/18 07:37 Ondansetron HCl (Zofran) Confirm Administered Dose 4 mg .ROUTE .STK-MED ONE Stop: 12/01/18 07:37 Propofol (Diprivan 20 Ml) Confirm Administered Dose 200 mg .ROUTE .STK-MED ONE Stop: 12/01/18 07:37 Rocuronium [place] (Zemuron) Confirm Administered Dose 50 mg .ROUTE .STK-MED ONE Stop: 12/01/18 07:37 - Exam Wound/Incisions: Healing Well, No Drainage General: Alert, Oriented, Cooperative, No Acute Distress Lungs: Clear to Auscultation, Normal Respiratory Effort Cardiovascular: Regular Rhythm, Bradycardia GI/Abdominal Exam: Normal Bowel Sounds Extremities: Normal Inspection, Normal Range of Motion, Non-Tender Skin: Warm, Dry, Intact Neurological: No New Focal Deficit Psy/Mental Status: Alert, Normal Affect, Normal Mood - Problem List & Annotations (1) Status post laparoscopic cholecystectomy SNOMED Code(s): 823883027, 07406674, 979141906 Code(s): Z90.49 - ACQUIRED ABSENCE OF OTHER SPECIFIED PARTS OF DIGESTIVE TRACT Status: Acute Current Visit: Yes - Problem List Review Problem List Initiated/Reviewed/Updated: Yes - My Orders Last 24 Hours: Active Orders 24 hr Category Date Time Status Bladder Scan [RC] ASDIRECTED Care 12/01/18 18:00 Active Communication Order [RC] INTERMITTENT Care 12/01/18 19:30 Active Communication Order [RC] ROUTINE Care 12/02/18 10:42 Active Citalopram [Celexa] Med 12/02/18 09:00 Active 30 mg PO DAILY Folic Acid Med 12/02/18 09:00 Active 1 mg PO DAILY Losartan [Cozaar] Med 12/02/18 09:00 Active 25 mg PO DAILY Metoprolol Succinate [Toprol XL] Med 12/02/18 09:00 Active 50 mg PO DAILY Multivitamins w-Iron/Ca/FA/Min [Thera M Plus] Med 12/02/18 08:00 Active 1 tab PO DAILY@0800 PHENobarbital Med 12/01/18 21:00 Active 97.2 mg PO BID Pantoprazole [ProTONIX] Med 12/02/18 07:30 Active 40 mg PO DAILY@0730 Phenytoin Med 12/01/18 21:00 Active 200 mg PO BID Tamsulosin [Flomax] Med 12/02/18 09:00 Active 0.4 mg PO DAILY Thiamine [Vitamin B-1] Med 12/02/18 09:00 Active 100 mg PO DAILY fentaNYL [Duragesic] Med 12/02/18 09:00 Active 50 mcg TOP Q72H traZODone Med 12/01/18 21:00 Active 150 mg PO BEDTIME Medication Orders Acetaminophen (Tylenol) 650 mg PO Q4H PRN PRN Reason: Pain Last Admin: 12/01/18 21:26 Dose: 650 mg Hydrocodone Bitart/Acetaminophen ([place] 325-5 Mg) 2 tab PO Q4H PRN PRN Reason: Pain (moderate 4-6) Last Admin: 12/02/18 14:02 Dose: 2 tab Admin: 12/02/18 08:47 Dose: 2 tab Admin: 12/02/18 05:32 Dose: 2 tab Admin: 12/01/18 13:24 Dose: 2 tab Albuterol (Ventolin Hfa) 0 gm INH Q4H PRN PRN Reason: Shortness of Breath Citalopram Hydrobromide (Celexa) 30 mg PO DAILY [facility] Last Admin: 12/02/18 08:51 Dose: 30 mg Docusate Sodium (Colace) 100 mg PO BID PRN PRN Reason: Constipation Fentanyl (Sublimaze) 50 mcg IVPUSH Q1H PRN PRN Reason: Pain (severe 7-10) Last Admin: 12/01/18 09:41 Dose: 50 mcg Fentanyl (Duragesic) 50 mcg TOP Q72H [facility] Last Admin: 12/02/18 09:20 Dose: 50 mcg Folic Acid (Folic Acid) 1 mg PO DAILY [facility] Last Admin: 12/02/18 08:52 Dose: 1 mg Dextrose/Lactated Ringer's (Dextrose 5%-Lactated Ringers) 1,000 mls @ 100 mls/ hr IV ASDIRECTED [facility] Last Admin: 12/01/18 07:47 Dose: 100 mls/hr Lactated Ringer's (Ringers, Lactated) 1,000 mls @ 125 mls/hr IV ASDIRECTED [facility] Last Admin: 12/02/18 11:36 Dose: 125 mls/hr Infusion: 12/02/18 11:16 Dose: 125 mls/hr Admin: 12/02/18 03:16 Dose: 125 mls/hr Infusion: 12/02/18 03:16 Dose: 125 mls/hr Admin: 12/01/18 19:24 Dose: 125 mls/hr Infusion: 12/01/18 19:24 Dose: 125 mls/hr Admin: 12/01/18 11:32 Dose: 125 mls/hr Losartan Potassium (Cozaar) 25 mg PO DAILY [facility] Last Admin: 12/02/18 08:51 Dose: 25 mg Metoprolol Succinate (Toprol Xl) 50 mg PO DAILY [facility] Last Admin: 12/02/18 08:52 Dose: 50 mg Multivitamins/Minerals (Thera M Plus) 1 tab PO DAILY@0800 [facility] Last Admin: 12/02/18 08:49 Dose: 1 tab Nitroglycerin (Nitrostat) 0.4 mg SL ASDIRECTED PRN PRN Reason: CHEST PAIN Fentanyl Patch (Placement) 1 each TOP BID [facility] Last Admin: 12/02/18 09:20 Dose: 1 each Admin: 12/01/18 21:21 Dose: Admin: 12/01/18 13:24 Dose: Pantoprazole Sodium (Protonix) 40 mg PO DAILY@0730 [facility] Last Admin: 12/02/18 08:48 Dose: 40 mg Phenobarbital (Phenobarbital) 97.2 mg PO BID [facility] Last Admin: 12/02/18 08:59 Dose: 97.2 mg Admin: 12/01/18 21:20 Dose: 97.2 mg Phenytoin Sodium (Phenytoin) 200 mg PO BID [facility] Last Admin: 12/02/18 09:06 Dose: 200 mg Admin: 12/01/18 21:21 Dose: 200 mg Tamsulosin HCl (Flomax) 0.4 mg PO DAILY [facility] Last Admin: 12/02/18 08:53 Dose: 0.4 mg Thiamine HCl (Vitamin B-1) 100 mg PO DAILY [facility] Last Admin: 12/02/18 09:07 Dose: 100 mg Trazodone HCl (Trazodone) 150 mg PO BEDTIME [facility] Last Admin: 12/01/18 21:20 Dose: 150 mg - Assessment Assessment (Free Text/Narrative):: Doing well. - Plan Plan (Free Text/Narrative):: Crisis intervention team to see him.
[2018-12-02] MEDS: traZODone 50 MG Tab PO SCH (20:21)
[2018-12-02] MEDS: Apixaban 5 MG Tab PO SCH (20:21)
[2018-12-03] MEDS: Acetaminophen/HYDROcodone 325-5 MG Tab PO PRN ×3 (03:01→12:48)
[2018-12-03] MEDS: Lactated Ringers 1,000 ML IV SCH (03:03)
[2018-12-03] MEDS: Pantoprazole 40 MG Tab.CR PO SCH (07:38)
[2018-12-03] MEDS: Multivitamins with Iron/Calcium/Folic Acid/Minerals Tab PO SCH (07:43)
[2018-12-03 08:55] VITALS: BP 111/58
[2018-12-03] MEDS: Citalopram 10 MG Tab PO SCH (09:23)
[2018-12-03] MEDS: Tamsulosin 0.4 MG Cap.ER PO SCH (09:23)
[2018-12-03] MEDS: Apixaban 5 MG Tab PO SCH (09:23)
[2018-12-03] MEDS: Thiamine 100 MG Tab PO SCH (09:23)
[2018-12-03] MEDS: Folic Acid 1 MG Tab PO SCH (09:23)
[2018-12-03] MEDS: Metoprolol Succinate 50 MG Tab.ER PO SCH (09:23)
[2018-12-03] MEDS: [UNRECOGNIZED DRUG - REMARK] TOP SCH (09:24)
[2018-12-03] MEDS: Losartan 25 MG Tab PO SCH (09:24)
[2018-12-03] MEDS: Phenytoin 100 MG Cap.ER PO SCH (09:24)
[2018-12-03] MEDS: PHENobarbital 32.4 MG Tab PO SCH (09:44)
--- NOTE | 2018-12-03 12:14 | PCM.DCSUM1 ---
Discharge Summary - Hospital Course Free Text/Narrative:: This 68 year old white male complained of upper abdominal pain. He underwent an abdominal ultrasound which showed cholelithiasis. He was scheduled to undergo a laparoscopic cholecystectomy about three months ago, but cancelled it due to being afraid of the operation. Since then he has had a lot of pain after eating, the consequence being that he hardly eats anything. He has lost a lot of weight. He has decided to proceed with surgery. He was scheduled on December 01, 2018, but the night before became very anxious and scratched his arm several times. He was sent to the ER who evaluated him and cleared him for surgery. He underwent the laparoscopic cholecystectomy on December 01. Post operatively he did well. He will not be accepted back at his home, so the crisis intervention team saw him yesterday and said it is OK for him to go home. I saw him to late again last night to release him. He is discharged now in good condition. Brief History: See above narrative. Diagnosis: Stroke: No - Discharge Data Discharge Date: 12/03/18 Discharge Disposition: Home, Self-Care 01 Condition: Good - Discharge Diagnosis/Problem(s) (1) Status post laparoscopic cholecystectomy SNOMED Code(s): 993324771, [id number], [id number] ICD Code: Z90.49 - ACQUIRED ABSENCE OF OTHER SPECIFIED PARTS OF DIGESTIVE TRACT Status: Acute Current Visit: Yes - Patient Summary/Data Operative Procedure(s) Performed: Laparoscopic cholecystectomy Consults: Consultations 12/01/18 09:26 Respiratory Care Assess and Treatment [CONS] Routine Comment: Physician Instructions: Post-Op Pneumonia Prevention Crisis intervention team saw him. Hospital Course: See above narrative. - Patient Instructions Diet, Other: Regular Activity: As Tolerated Driving: Do Not Drive Showering/Bathing: May Shower Notify Provider of: Fever, Increased Pain, Swelling and Redness, Drainage, Nausea and/or Vomiting - Discharge Plan *PRESCRIPTION DRUG MONITORING PROGRAM REVIEWED*: No *COPY OF PRESCRIPTION DRUG MONITORING REPORT IN PATIENT MONSE: No Prescriptions/Med Rec: Acetaminophen/HYDROcodone [[place] 325-5 MG] 2 tab PO Q4H PRN #30 tablet PRN Reason: Pain (Moderate 4-6) Home Medications: Home Meds PHENobarbital [Phenobarbital] 97.2 mg PO BID #60 tablet 09/16/16 [Rx] Phenytoin 200 mg PO BID #60 cap.er 09/16/16 [Rx] Citalopram [Citalopram HBr] 30 mg PO DAILY 10/22/16 [History] Albuterol Sulfate [Albuterol Sulfate Hfa] 2 puff INH Q4HR PRN 11/28/18 [History] Apixaban [Eliquis] 5 mg PO BID 11/28/18 [History] Folic Acid 1 mg PO DAILY 11/28/18 [History] Losartan Potassium 25 mg PO DAILY 11/28/18 [History] Metoprolol Succinate [Toprol XL 50mg] 50 mg PO DAILY 11/28/18 [History] Multivitamin with Minerals [Multiple Vitamin] 1 tab PO DAILY 11/28/18 [History] Nitroglycerin 0.4 mg SL ASDIRECTED 11/28/18 [History] Omeprazole 20 mg PO DAILY 11/28/18 [History] Tamsulosin HCl 0.4 mg PO DAILY 11/28/18 [History] Thiamine HCl [Vitamin B-1] 100 mg PO DAILY 11/28/18 [History] fentaNYL [Fentanyl] 50 mcg TOP .Q3DAY 11/28/18 [History] traZODone HCl [Trazodone HCl] 150 mg PO BEDTIME 11/28/18 [History] Acetaminophen [Tylenol] 650 mg PO Q4H PRN 12/01/18 [History] Acetaminophen/HYDROcodone [[place] 325-5 MG] 2 tab PO Q4H PRN #30 tablet 12/03/18 [Rx] Docusate Sodium [Colace] 100 mg PO BID PRN cap 12/03/18 [Rx] Patient Handouts: Laparoscopic Cholecystectomy, Care After, [id number] - Discharge Summary/Plan Comment DC Time >30 min.: Yes - General Info Date of Service: 12/03/18 Functional Status: Reports: Pain Controlled, Tolerating Diet, Ambulating, Urinating - Review of Systems General: Reports: No Symptoms HEENT: Reports: No Symptoms Pulmonary: Reports: No Symptoms Cardiovascular: Reports: No Symptoms Gastrointestinal: Reports: No Symptoms Genitourinary: Reports: No Symptoms Musculoskeletal: Reports: No Symptoms Skin: Reports: No Symptoms Neurological: Reports: No Symptoms Psychiatric: Reports: No Symptoms. Denies: Anxiety, Agitation, Suicidal Ideation - Patient Data Vitals - Most Recent: Last Vital Signs Temp 96.3 F 12/03/18 08:00 Pulse 60 12/03/18 09:23 Resp 16 12/03/18 08:00 BP 111/58 L 12/03/18 09:24 Pulse Ox 96 12/03/18 08:58 Weight - Most Recent: 121 lb 15.99 oz I&O - Last 24 hours: Intake & Output 12/02/18 12/03/18 12/03/18 22:59 06:59 14:59 Intake Total 2322 1454 Output Total 400 775 Balance 1922 679 ALIYAH Results - Last 24 hrs: Microbiology 12/01/18 08:50 Gram Stain - Final Gallbladder Fluid - Bile Wound Culture - Preliminary NO GROWTH AFTER 2 DAYS Anaerobic Culture - Preliminary NO GROWTH AFTER 2 DAYS Med Orders - Current: Current Medications Acetaminophen (Tylenol) 650 mg PO Q4H PRN PRN Reason: Pain Last Admin: 12/01/18 21:26 Dose: 650 mg Hydrocodone Bitart/Acetaminophen ([place] 325-5 Mg) 2 tab PO Q4H PRN PRN Reason: Pain (moderate 4-6) Last Admin: 12/03/18 07:44 Dose: 2 tab Albuterol (Ventolin Hfa) 0 gm INH Q4H PRN PRN Reason: Shortness of Breath Apixaban (Eliquis) 5 mg PO BID [facility] Last Admin: 12/03/18 09:23 Dose: 5 mg Citalopram Hydrobromide (Celexa) 30 mg PO DAILY [facility] Last Admin: 12/03/18 09:23 Dose: 30 mg Docusate Sodium (Colace) 100 mg PO BID PRN PRN Reason: Constipation Fentanyl (Sublimaze) 50 mcg IVPUSH Q1H PRN PRN Reason: Pain (severe 7-10) Last Admin: 12/01/18 09:41 Dose: 50 mcg Fentanyl (Duragesic) 50 mcg TOP Q72H [facility] Last Admin: 12/02/18 09:20 Dose: 50 mcg Folic Acid (Folic Acid) 1 mg PO DAILY [facility] Last Admin: 12/03/18 09:23 Dose: 1 mg Dextrose/Lactated Ringer's (Dextrose 5%-Lactated Ringers) 1,000 mls @ 100 mls/ hr IV ASDIRECTED [facility] Last Admin: 12/01/18 07:47 Dose: 100 mls/hr Lactated Ringer's (Ringers, Lactated) 1,000 mls @ 125 mls/hr IV ASDIRECTED [facility] Last Admin: 12/03/18 03:03 Dose: 125 mls/hr Losartan Potassium (Cozaar) 25 mg PO DAILY [facility] Last Admin: 12/03/18 09:24 Dose: 25 mg Metoprolol Succinate (Toprol Xl) 50 mg PO DAILY [facility] Last Admin: 12/03/18 09:23 Dose: 50 mg Multivitamins/Minerals (Thera M Plus) 1 tab PO DAILY@0800 [facility] Last Admin: 12/03/18 07:43 Dose: 1 tab Nitroglycerin (Nitrostat) 0.4 mg SL ASDIRECTED PRN PRN Reason: CHEST PAIN Fentanyl Patch (Placement) 1 each TOP BID [facility] Last Admin: 12/03/18 09:24 Dose: Not Given Pantoprazole Sodium (Protonix) 40 mg PO DAILY@0730 [facility] Last Admin: 12/03/18 07:38 Dose: 40 mg Phenobarbital (Phenobarbital) 97.2 mg PO BID [facility] Last Admin: 12/03/18 09:44 Dose: 97.2 mg Phenytoin Sodium (Phenytoin) 200 mg PO BID [facility] Last Admin: 12/03/18 09:24 Dose: 200 mg Tamsulosin HCl (Flomax) 0.4 mg PO DAILY [facility] Last Admin: 12/03/18 09:23 Dose: 0.4 mg Thiamine HCl (Vitamin B-1) 100 mg PO DAILY [facility] Last Admin: 12/03/18 09:23 Dose: 100 mg Trazodone HCl (Trazodone) 150 mg PO BEDTIME [facility] Last Admin: 12/02/18 20:21 Dose: 150 mg Discontinued Medications Bupivacaine HCl (Marcaine 0.5%) Confirm Administered Dose 50 ml .ROUTE .STK-MED ONE Stop: 12/01/18 06:42 Last Admin: 12/01/18 08:36 Dose: 20 ml Dexamethasone (Dexamethasone) Confirm Administered Dose 4 mg .ROUTE .STK-MED ONE Stop: 12/01/18 07:37 Fentanyl (Sublimaze) Confirm Administered Dose 250 mcg .ROUTE .STK-MED ONE Stop: 12/01/18 07:37 Fentanyl (Sublimaze) Confirm Administered Dose 100 mcg .ROUTE .STK-MED ONE Stop: 12/01/18 08:47 Fentanyl (Sublimaze) 50 mcg IVPUSH ONETIME ONE Stop: 12/01/18 09:17 Last Admin: 12/01/18 09:26 Dose: 50 mcg Fentanyl (Sublimaze) 50 mcg IVPUSH ONETIME ONE Stop: 12/01/18 09:31 Last Admin: 12/01/18 11:04 Dose: Not Given Glycopyrrolate (Robinul) Confirm Administered Dose 1 mg .ROUTE .STK-MED ONE Stop: 12/01/18 07:37 Hydroxyzine HCl (Vistaril) 50 mg IM ONETIME ONE Stop: 12/01/18 09:17 Last Admin: 12/01/18 09:30 Dose: 50 mg Clindamycin Phosphate 900 mg/ (Sodium Chloride) 106 mls @ 200 mls/hr IV ONETIME ONE Stop: 12/01/18 07:01 Last Admin: 12/01/18 07:57 Dose: 200 mls/hr Levofloxacin/Dextrose 500 mg/ (Premix) 100 mls @ 100 mls/hr IV ONETIME ONE Stop: 12/01/18 07:29 Last Admin: 12/01/18 08:00 Dose: 100 mls/hr Lidocaine/Epinephrine (Xylocaine 1% With Epinephrine 1:100,000) Confirm Administered Dose 50 ml .ROUTE .STK-MED ONE Stop: 12/01/18 06:41 Last Admin: 12/01/18 08:36 Dose: 20 ml Neostigmine Methylsulfate (Neostigmine) Confirm Administered Dose 5 mg .ROUTE .STK-MED ONE Stop: 12/01/18 07:37 Ondansetron HCl (Zofran) Confirm Administered Dose 4 mg .ROUTE .STK-MED ONE Stop: 12/01/18 07:37 Propofol (Diprivan 20 Ml) Confirm Administered Dose 200 mg .ROUTE .STK-MED ONE Stop: 12/01/18 07:37 Rocuronium [place] (Zemuron) Confirm Administered Dose 50 mg .ROUTE .STK-MED ONE Stop: 12/01/18 07:37 - Exam General: Reports: Alert, Oriented, Cooperative, No Acute Distress Lungs: Reports: Clear to Auscultation, Normal Respiratory Effort Cardiovascular: Reports: Regular Rate, Regular Rhythm GI/Abdominal Exam: Normal Bowel Sounds Rectal (Males) Exam: Normal Exam Extremities: Normal Inspection Skin: Reports: Warm, Dry, Intact Wound/Incisions: Reports: Healing Well Neurological: Reports: No New Focal Deficit Psy/Mental Status: Reports: Alert, Normal Affect, Normal Mood Discharge Operative/Procedures - Procedures Performed Operations: Laparoscopic cholecystectomy
== END 2018-12-03 13:37 | disposition home or self-care (01) ==
LOC: JP.SDS 06:35 → JP.ICU 10:10 → JP.SDS 12-03 13:37
PROVIDERS: ATTEND Surgery
DX: K80.10 Calculus of gallbladder with chronic cholecystitis without obstruction (principal); I10 Essential (primary) hypertension; F17.200 Nicotine dependence, unspecified, uncomplicated; F41.9 Anxiety disorder, unspecified; G40.909 Epilepsy, unspecified, not intractable, without status epilepticus; G89.29 Other chronic pain; M54.5 Low back pain; Z88.0 Allergy status to penicillin; Z86.718 Personal history of other venous thrombosis and embolism; Z86.11 Personal history of tuberculosis; Z79.01 Long term (current) use of anticoagulants; Z79.899 Other long term (current) drug therapy
CPT/HCPCS: 36415; 47562; 80053; 87070; 87075; 87205; 94762; A9270; J1100; J1956; J2405; J2704; J2710; J3010; J3410; J3490; J7030; J7042; J7120; 80076; 85027; 88304

== ENCOUNTER 2019-05-11 07:39 | Day surgery (SDC) | payer MEDICARE ==
[2019-05-11] MEDS ORDERED: Dextrose 5%-Lactated Ringers 1,000 ML IV SCH (08:15)
[2019-05-11] MEDS ORDERED: Propofol 200 MG/20 ML SDV ONE (10:56)
[2019-05-11] MEDS ORDERED: fentaNYL 100 MCG/2 ML SDV ONE (10:56)
[2019-05-11] MEDS ORDERED: Midazolam 1 MG/ML 2 ML SDV ONE (10:56)
[2019-05-11] MEDS ORDERED: Glycopyrrolate 0.2 MG/ML 2 ML SDV ONE (11:06)
[2019-05-11 12:34] VITALS: BP 127/50; PULSE 48
--- NOTE | 2019-05-26 15:06 | OR ---
DATE OF PROCEDURE: 05/11/2019 SURGEON: Alfredo Schaefer MD PREOPERATIVE DIAGNOSES: History of dysphagia with previous esophageal strictures. POSTOPERATIVE DIAGNOSES: Mild distal esophageal stricture with minimal acute or ongoing inflammation at esophagogastric junction. OPERATIVE PROCEDURES: Esophagogastroduodenoscopy with esophageal dilation (44955). ANESTHESIA: IV sedation. INDICATION FOR PROCEDURE: This is a 69-year-old male with history of previous problems with esophageal stricturing. He had a dilation around 10 years ago and now is showing increased problems with dysphagia. The plan is to proceed with upper GI endoscopy with dilation as indicated. Potential risks including bleeding and perforation were discussed, and the patient wishes to proceed. DETAILS OF PROCEDURE: The patient was taken to the operating room and placed in a left lateral decubitus position. IV sedation was administered, after which the upper GI endoscope was passed orally through the length of the esophagus, into the stomach, with retroflexion view of the fundus, and thereafter through the pyloric channel and into the proximal duodenum. Findings included normal hypopharynx, larynx, upper esophageal sphincter, and esophageal body. At the EG junction, there was some mild narrowing present. This was not associated with much in the way of fibrous stricturing, but a little bit of general thickening of the mucosa at that level. The scope easily passed through the area, and there was minimal ongoing inflammation at the mucosal level in the vicinity of the esophagogastric junction. The patient had a moderate hiatal hernia. The remainder of the stomach and duodenal exams were unremarkable. At this point, a guidewire was passed into the stomach and gastroscope withdrawn and guidewire then placed. The esophagus was inspected and dilated with a 36, followed by a 39, followed by 42-Ivorian Savary dilator. At that point, there appeared to be reasonable pressure, and we decided to stop the procedure at that point. The scope was then withdrawn and the procedure then concluded. The patient will be discharged home. He will be instructed to stay on a full liquid diet for 48 hours and then a soft well chewed diet thereafter, and followup with us will be p.r.n. Alfredo Schaefer MD Job #: [id number]
== END 2019-05-11 13:00 | disposition home or self-care (01) ==
LOC: JP.SDS 07:39
PROVIDERS: ATTEND Surgery
DX: K22.2 Esophageal obstruction (principal); K20.8 Other esophagitis; I10 Essential (primary) hypertension; Z88.0 Allergy status to penicillin
CPT/HCPCS: 43248; J2250; J2704; J3010; J3490; J7042

== ENCOUNTER 2019-06-03 14:19 | Emergency (ER) | payer MEDICARE ==
[2019-06-03] MEDS ORDERED: Lactated Ringers 1,000 ML IV SCH (14:30)
--- NOTE | 2019-06-03 14:33 | EDM.PDOC ---
ED HPI GENERAL MEDICAL PROBLEM - General Chief Complaint: General Stated Complaint: MEDICAL [facility]IA [facility] Time Seen by Provider: 06/03/19 14:21 Source of Information: Reports: Patient, Old Records, RN Notes Reviewed History Limitations: Reports: Altered Mental Status - History of Present Illness INITIAL COMMENTS - FREE TEXT/NARRATIVE: 69-year-old gentleman presents emergency department today via EMS services. He was found at approximately 1030 today in bed which is unusual for him we do not have a last known well time. When found this morning he was confused he has difficulty answering questions his speech is clear words are appropriate he follows commands but he is not sure where that has difficulty answering questions with a delayed response, majority of this H&P is taken from chart review as well as EMS report - Related Data Allergies Allergy/AdvReac Type Severity Reaction Status Date / Time Penicillins Allergy Severe Anaphylactic Verified 06/03/19 14:27 Shock Home Meds: Home Meds PHENobarbitaL [Phenobarbital] 97.2 mg PO BID #60 tablet 09/16/16 [Rx] Phenytoin 200 mg PO BID #60 cap.er 09/16/16 [Rx] Citalopram [Citalopram HBr] 30 mg PO DAILY 10/22/16 [History] Albuterol Sulfate [Albuterol Sulfate Hfa] 2 puff INH Q4HR PRN 11/28/18 [History] Apixaban [Eliquis] 5 mg PO BID 11/28/18 [History] Folic Acid 1 mg PO DAILY 11/28/18 [History] Losartan Potassium 25 mg PO DAILY 11/28/18 [History] Metoprolol Succinate [Toprol XL 50mg] 50 mg PO DAILY 11/28/18 [History] Multivitamin with Minerals [Multiple Vitamin] 1 tab PO DAILY 11/28/18 [History] Nitroglycerin 0.4 mg SL ASDIRECTED 11/28/18 [History] Tamsulosin HCl 0.4 mg PO DAILY 11/28/18 [History] Thiamine HCl [Vitamin B-1] 100 mg PO DAILY 11/28/18 [History] fentaNYL [Fentanyl] 50 mcg TOP .Q3DAY 11/28/18 [History] traZODone HCl [Trazodone HCl] 150 mg PO BEDTIME 11/28/18 [History] Acetaminophen [Tylenol] 650 mg PO Q4H PRN 12/01/18 [History] Acetaminophen/HYDROcodone [[place] 325-5 MG] 1 tab PO Q6H PRN 05/07/19 [History] Docusate Sodium [Colace] 100 mg PO DAILY 05/07/19 [History] Furosemide [Lasix] 20 mg PO DAILY 05/07/19 [History] Past Medical History HEENT History: Reports: Cataract, Impaired Vision, Macular Degeneration Cardiovascular History: Reports: Blood Clots/VTE/DVT, CAD, Heart Failure, Hypertension, SOB on Exertion, Syncope Respiratory History: Reports: COPD, PE, SOB, Other (See Below) Other Respiratory History: calcified pleural plaque on chest x-ray. Mesothelioma of both lungs Gastrointestinal History: Reports: Cholelithiasis, Chronic Constipation, GERD Genitourinary History: Reports: BPH, Renal Disease, Other (See Below) Other Genitourinary History: recent kidney function issue but undiagnoised at this time Musculoskeletal History: Reports: Back Pain, Chronic, Fracture, Osteoporosis, Other (See Below) Other Musculoskeletal History: has metal in left hand from [employer] during [place];. shattered pelvis; multiple compression fractures Neurological History: Reports: Neuropathy, Peripheral, Seizure Psychiatric History: Reports: Addiction, Depression, Eating Disorders, Suicide Attempt Other Psychiatric History: Malnutrition due to inability to swallow. Insomnia Endocrine/Metabolic History: Reports: Other (See Below) Other Endocrine/Metabolic History: recent elevated blood sugars, undiagnoised. thyroid cancer, failed to go to surgery on 09/01/16 Hematologic History: Reports: Anticoagulation Therapy Oncologic (Cancer) History: Reports: Lung, Thyroid Other Oncologic History: s/s of mesotheleoma - Infectious Disease History Infectious Disease History: Reports: Chicken Pox, Measles, Mumps, Rubella - Past Surgical History HEENT Surgical History: Reports: Adenoidectomy, Cataract Surgery, Tonsillectomy Cardiovascular Surgical History: Reports: None Respiratory Surgical History: Reports: None GI Surgical History: Reports: Cholecystectomy, EGD, Esophageal Dilatation Male Surgical History: Reports: None Endocrine Surgical History: Reports: Thyroid Biopsy Neurological Surgical History: Reports: Spinal Fusion Musculoskeletal Surgical History: Reports: None Oncologic Surgical History: Reports: None Dermatological Surgical History: Reports: None Social & Family History - Family History Family Medical History: Noncontributory - Caffeine Use Caffeine Use: Reports: Coffee, Energy Drinks - Living Situation & Occupation Living situation: Reports: , with Family Occupation: Disabled ED ROS GENERAL - Review of Systems Review Of Systems: Unable To Obtain Reason Not Obtained: Altered mental status state confusion ED EXAM, GENERAL - Physical Exam Exam: See Below Free Text/Narrative:: General: Male, not in any distress GCS of 14, alert and oriented x1 HEENT: head is atraumatic normocephalic, eyes pupils equal round reactive to light, sclera clear no conjunctivitis appreciated, extraocular eye movements intact. Ears tympanic membranes clear and john landmarks and light reflex are present bilaterally canals are clear. Nose no septal deviation, nares are clear, no blood present. Mouth mucosa is moist and pink no erythema or exudate noted in soft palate, tongue is midline, white color on tongue uvula is midline, dentition is intact. Neck: Supple no thyromegaly no tracheal deviation. Nodes: Cervical nodes subclavicular nodes nontender no palpable lymphadenopathy noted. Lungs: clear to auscultation bilaterally with symmetrical respirations, no adventitious noise appreciated. CV: Bradycardic regular rate and rhythm S1 and S2 appreciated no murmurs rubs or gallops noted. Abdomen: Soft, nontender, no palpable masses or organomegaly appreciated, no distention no guarding bowel sounds are present, Skin: Warm and dry, intact Extremities: No lower extremity edema appreciated, Course - Vital Signs Last Recorded V/S: Last Vital Signs Temp 97.2 F 06/03/19 14:29 Pulse 51 L 06/03/19 18:09 Resp 14 06/03/19 18:09 BP 115/50 L 06/03/19 18:09 Pulse Ox 95 06/03/19 18:09 - Orders/Labs/Meds Orders: Active Orders 24 hr Category Date Time Status EKG Documentation Completion [RC] ASDIRECTED Care 06/03/19 14:26 Active UA W/MICROSCOPIC [URIN] Urgent Lab 06/03/19 14:25 Ordered Lactated Ringers [Ringers, Lactated] 1,000 ml Med 06/03/19 14:30 Active IV ASDIRECTED Sodium Chloride 0.9% [Normal Saline] 1,000 ml Med 06/03/19 17:45 Active IV ASDIRECTED EKG 12 Lead [EK] Urgent Ther 06/03/19 14:25 Ordered Medication Orders Lactated Ringer's (Ringers, Lactated) 1,000 mls @ 999 mls/hr IV ASDIRECTED BRITTANY Last Infusion: 06/03/19 16:42 Dose: 999 mls/hr Admin: 06/03/19 15:04 Dose: 125 mls/hr Sodium Chloride (Normal Saline) 1,000 mls @ 999 mls/hr IV ASDIRECTED BRITTANY Labs: Laboratory Tests 06/03/19 06/03/19 06/03/19 Range/Units 14:39 14:39 14:39 WBC 5.2 (4.5-11.0) K/uL RBC 4.22 L (4.30-5.90) M/uL Hgb 14.7 (12.0-15.0) g/dL Hct 42.5 (40.0-54.0) % MCV 101 H (80-98) fL MCH 35 H (27-31) pg MCHC 35 (32-36) % Plt Count 203 (150-400) K/uL Neut % (Auto) 49 (36-66) % Lymph % (Auto) 40 (24-44) % [place] % (Auto) 7 H (2-6) % Eos % (Auto) 3 (2-4) % Baso % (Auto) 2 H (0-1) % PT 13.4 H (9.5-12.0) sec INR 1.26 H (0.80-1.20) Sodium 145 (140-148) mmol/L Potassium 3.4 L (3.6-5.2) mmol/L Chloride 107 (100-108) mmol/L Carbon Dioxide 29 (21-32) mmol/L Anion Gap 12.4 (5.0-14.0) mmol/L BUN 9 (7-18) mg/dL Creatinine 0.5 L (0.8-1.3) mg/dL Est Cr Clr Drug Dosing 116.30 mL/min Estimated GFR (MDRD) > 60 (>60) Glucose 103 (74-106) mg/dL Lactic Acid (0.4-2.0) mmol/L Calcium 7.6 L (8.5-10.1) mg/dL Total Bilirubin 0.4 (0.2-1.0) mg/dL AST 41 H (15-37) U/L ALT 64 D (12-78) U/L Alkaline Phosphatase 101 (46-116) U/L Ammonia (11-32) mmol/L Creatine Kinase (39-308) U/L Troponin I < 0.017 (0.000-0.056) ng/mL Total Protein 5.7 L (6.4-8.2) g/dL Albumin 3.2 L (3.4-5.0) g/dL Globulin 2.5 (2.3-3.5) g/dL Albumin/Globulin Ratio 1.3 (1.2-2.2) Salicylates (2.0-20.0) mg/dL Acetaminophen 0.0 L (10.0-30.0) ug/mL Ethyl Alcohol mg/dL 06/03/19 06/03/19 06/03/19 Range/Units 14:39 14:39 14:39 WBC (4.5-11.0) K/uL RBC (4.30-5.90) M/uL Hgb (12.0-15.0) g/dL Hct (40.0-54.0) % MCV (80-98) fL MCH (27-31) pg MCHC (32-36) % Plt Count (150-400) K/uL Neut % (Auto) (36-66) % Lymph % (Auto) (24-44) % [place] % (Auto) (2-6) % Eos % (Auto) (2-4) % Baso % (Auto) (0-1) % PT (9.5-12.0) sec INR (0.80-1.20) Sodium (140-148) mmol/L Potassium (3.6-5.2) mmol/L Chloride (100-108) mmol/L Carbon Dioxide (21-32) mmol/L Anion Gap (5.0-14.0) mmol/L BUN (7-18) mg/dL Creatinine (0.8-1.3) mg/dL Est Cr Clr Drug Dosing mL/min Estimated GFR (MDRD) (>60) Glucose (74-106) mg/dL Lactic Acid 3.1 H (0.4-2.0) mmol/L Calcium (8.5-10.1) mg/dL Total Bilirubin (0.2-1.0) mg/dL AST (15-37) U/L ALT (12-78) U/L Alkaline Phosphatase (46-116) U/L Ammonia 76 H (11-32) mmol/L Creatine Kinase (39-308) U/L Troponin I (0.000-0.056) ng/mL Total Protein (6.4-8.2) g/dL Albumin (3.4-5.0) g/dL Globulin (2.3-3.5) g/dL Albumin/Globulin Ratio (1.2-2.2) Salicylates 3.4 (2.0-20.0) mg/dL Acetaminophen (10.0-30.0) ug/mL Ethyl Alcohol mg/dL 06/03/19 06/03/19 Range/Units 14:39 14:39 WBC (4.5-11.0) K/uL RBC (4.30-5.90) M/uL Hgb (12.0-15.0) g/dL Hct (40.0-54.0) % MCV (80-98) fL MCH (27-31) pg MCHC (32-36) % Plt Count (150-400) K/uL Neut % (Auto) (36-66) % Lymph % (Auto) (24-44) % [place] % (Auto) (2-6) % Eos % (Auto) (2-4) % Baso % (Auto) (0-1) % PT (9.5-12.0) sec INR (0.80-1.20) Sodium (140-148) mmol/L Potassium (3.6-5.2) mmol/L Chloride (100-108) mmol/L Carbon Dioxide (21-32) mmol/L Anion Gap (5.0-14.0) mmol/L BUN (7-18) mg/dL Creatinine (0.8-1.3) mg/dL Est Cr Clr Drug Dosing mL/min Estimated GFR (MDRD) (>60) Glucose (74-106) mg/dL Lactic Acid (0.4-2.0) mmol/L Calcium (8.5-10.1) mg/dL Total Bilirubin (0.2-1.0) mg/dL AST (15-37) U/L ALT (12-78) U/L Alkaline Phosphatase (46-116) U/L Ammonia (11-32) mmol/L Creatine Kinase 68 (39-308) U/L Troponin I (0.000-0.056) ng/mL Total Protein (6.4-8.2) g/dL Albumin (3.4-5.0) g/dL Globulin (2.3-3.5) g/dL Albumin/Globulin Ratio (1.2-2.2) Salicylates (2.0-20.0) mg/dL Acetaminophen (10.0-30.0) ug/mL Ethyl Alcohol 220 mg/dL Meds: Medications Generic Name Dose Route Start Last Admin Trade Name [place] PRN Reason Stop Dose Admin Lactated Ringer's 1,000 mls @ 999 mls/hr 06/03/19 14:30 06/03/19 16:42 Ringers, Lactated IV 999 mls/hr ASDIRECTED BRITTANY Infusion Sodium Chloride 1,000 mls @ 999 mls/hr 06/03/19 17:45 Normal Saline IV ASDIRECTED BRITTANY Departure - Departure Disposition: Home, Self-Care 01 Condition: Poor Clinical Impression: Alcohol abuse Alcohol intoxication Qualifiers: Complication of substance-induced condition: uncomplicated Qualified Code(s): F10.920 - Alcohol use, unspecified with intoxication, uncomplicated - Discharge Information Referrals: Jamel Castillo MD [Primary Care Provider] - Forms: ED Department Discharge Additional Instructions: Please followup with your primary care provider in 3-5 days if not better, please call return to the emergency department with worsening of symptoms. Sepsis Event Note - Focused Exam Vital Signs: Vital Signs Temp Pulse Resp BP Pulse Ox 06/03/19 18:09 51 L 14 115/50 L 95 06/03/19 17:08 68 12 128/71 97 06/03/19 16:12 56 L 16 151/67 H 97 06/03/19 15:53 55 L 15 147/62 H 96 06/03/19 15:10 54 L 17 140/65 93 L 06/03/19 14:29 97.2 F 58 L 13 130/60 97 Date Exam was Performed: 06/03/19 Time Exam was Performed: 18:14 - My Orders Last 24 Hours: My Active Orders 06/03/19 14:25 UA W/MICROSCOPIC [URIN] Urgent EKG 12 Lead [EK] Urgent 06/03/19 14:26 EKG Documentation Completion [RC] ASDIRECTED 06/03/19 14:30 Lactated Ringers [Ringers, Lactated] 1,000 ml IV ASDIRECTED 06/03/19 17:45 Sodium Chloride 0.9% [Normal Saline] 1,000 ml IV ASDIRECTED - Assessment/Plan Last 24 Hours: My Active Orders 06/03/19 14:25 UA W/MICROSCOPIC [URIN] Urgent EKG 12 Lead [EK] Urgent 06/03/19 14:26 EKG Documentation Completion [RC] ASDIRECTED 06/03/19 14:30 Lactated Ringers [Ringers, Lactated] 1,000 ml IV ASDIRECTED 06/03/19 17:45 Sodium Chloride 0.9% [Normal Saline] 1,000 ml IV ASDIRECTED Plan: Assessment Acuity = acute Site and laterality = alcohol intoxication Etiology = EtOH Manifestations = confusion Location of injury = Home Lab values = CBC CMP troponin all negative alcohol was at 220 chest x-ray CT scan of the head shows no acute process Plan 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
--- NOTE | 2019-06-03 15:13 | CRLCR ---
Indication: Patient with a cough Technique: A single-view chest radiograph was performed Comparison: A prior study dated November 18, 2016 Findings: The study is somewhat limited due to apical angulation. Heart size is normal. The lungs are hyperinflated which may be related to COPD in the appropriate clinical setting. Linear opacities at the lung bases are likely related to atelectasis or scarring. No focal consolidation or mass. No pleural effusion or pneumothorax Impression: Hyperinflation which may be related to COPD in the appropriate clinical setting. Linear opacities of the lung bases likely related to atelectasis or scarring. No definite focal consolidation Dictated by Alfredo Gomez MD @ Jun 03 2019 3:07PM Signed by Dr. Alfredo Gomez @ Jun 03 2019 3:12PM
--- NOTE | 2019-06-03 15:29 | CRLCT ---
INDICATION: Confusion TECHNIQUE: CT head without contrast. COMPARISON: 09/29/2016 FINDINGS: CSF spaces: Within normal limits for age. Brain parenchyma: The john-white differentiation is normal. No sign of mass, hemorrhage, or midline shift. Skull base and calvarium: Ethmoid and frontal sinus mucosal thickening. The visualized orbits are grossly unremarkable. No skull fractures. IMPRESSION: Unremarkable noncontrast head CT. Dictated by Jez Hubbard MD @ 06/03/2019 3:26:41 PM Please note that all CT scans at this facility use dose modulation, iterative reconstruction, and/or weight-based dosing when appropriate to reduce radiation dose to as low as reasonably achievable. Dictated by: Jez Hubbard MD @ 06/03/2019 15:26:45 (Electronically Signed)
[2019-06-03] MEDS ORDERED: Sodium Chloride 0.9% 1,000 ML IV SCH (17:45)
[2019-06-03 18:10] VITALS: BP 115/50; PULSE 51
== END 2019-06-03 21:06 | disposition home or self-care (01) ==
LOC: JP.ED 14:19
DX: F10.220 Alcohol dependence with intoxication, uncomplicated (principal); Y90.7 Blood alcohol level of 200-239 mg/100 ml; I11.0 Hypertensive heart disease with heart failure; I50.9 Heart failure, unspecified; I25.10 Atherosclerotic heart disease of native coronary artery without angina pectoris; J44.9 Chronic obstructive pulmonary disease, unspecified; F32.9 Major depressive disorder, single episode, unspecified; K21.9 Gastro-esophageal reflux disease without esophagitis; N40.0 Benign prostatic hyperplasia without lower urinary tract symptoms; Z86.711 Personal history of pulmonary embolism; Z86.718 Personal history of other venous thrombosis and embolism; Z79.01 Long term (current) use of anticoagulants; Z79.899 Other long term (current) drug therapy; Z88.0 Allergy status to penicillin
CPT/HCPCS: 36415; 70450; 71045; 80053; 81001; 82140; 82550; 83605; 84484; 85025; 85610; 93005; 93010; 96360; 96361; 99285; G0480; J7120

== ENCOUNTER 2019-06-26 15:59 | Emergency (ER) | payer MEDICARE, MEDICAID ==
--- NOTE | 2019-06-26 18:02 | EDM.PDOC ---
ED HPI GENERAL MEDICAL PROBLEM - General Chief Complaint: General Stated Complaint: medical Time Seen by Provider: 06/26/19 18:00 Source of Information: Reports: Patient, Family History Limitations: Reports: No Limitations - History of Present Illness INITIAL COMMENTS - FREE TEXT/NARRATIVE: 69-year-old male with chronic weakness, has fallen twice in the last 3 days and bumped his forehead. He is on Eliquis. He also ran out of his fentanyl patches. He was brought in by his neighbors because they are concerned about his ongoing weakness and feel he needs to be in a group home. No fevers or chills, no shortness of breath, no nausea or vomiting. Patient is very flat affect but is stable. Looks weak but no obvious asymmetry. Speech is clear. Onset: Unknown/Unsure Associated Symptoms: Reports: Headaches, Weakness. Denies: Fever/Chills, Shortness of Breath Generalized Pain Score (Numeric/FACES): 8 - Related Data Allergies Allergy/AdvReac Type Severity Reaction Status Date / Time Penicillins Allergy Severe Anaphylactic Verified 06/26/19 16:52 Shock Home Meds: Home Meds PHENobarbitaL [Phenobarbital] 97.2 mg PO BID #60 tablet 09/16/16 [Rx] Phenytoin 200 mg PO BID #60 cap.er 09/16/16 [Rx] Citalopram [Citalopram HBr] 30 mg PO DAILY 10/22/16 [History] Apixaban [Eliquis] 5 mg PO BID 11/28/18 [History] Folic Acid 1 mg PO DAILY 11/28/18 [History] Losartan Potassium 25 mg PO DAILY 11/28/18 [History] Metoprolol Succinate [Toprol XL 50mg] 25 mg PO DAILY 11/28/18 [History] Multivitamin with Minerals [Multiple Vitamin] 1 tab PO DAILY 11/28/18 [History] Nitroglycerin 0.4 mg SL ASDIRECTED 11/28/18 [History] Tamsulosin HCl 0.4 mg PO DAILY 11/28/18 [History] Thiamine HCl [Vitamin B-1] 100 mg PO DAILY 11/28/18 [History] fentaNYL [Fentanyl] 50 mcg TOP .Q3DAY 11/28/18 [History] traZODone HCl [Trazodone HCl] 150 mg PO BEDTIME 11/28/18 [History] Acetaminophen [Tylenol] 650 mg PO Q4H PRN 12/01/18 [History] Acetaminophen/HYDROcodone [[place] 325-5 MG] 1 tab PO Q6H PRN 05/07/19 [History] Docusate Sodium [Colace] 100 mg PO DAILY 05/07/19 [History] Past Medical History HEENT History: Reports: Cataract, Impaired Vision, Macular Degeneration Cardiovascular History: Reports: Blood Clots/VTE/DVT, CAD, Heart Failure, Hypertension, SOB on Exertion, Syncope Respiratory History: Reports: COPD, PE, SOB, Other (See Below) Other Respiratory History: calcified pleural plaque on chest x-ray. Mesothelioma of both lungs Gastrointestinal History: Reports: Cholelithiasis, Chronic Constipation, GERD Genitourinary History: Reports: BPH, Renal Disease, Other (See Below) Other Genitourinary History: recent kidney function issue but undiagnoised at this time Musculoskeletal History: Reports: Back Pain, Chronic, Fracture, Osteoporosis, Other (See Below) Other Musculoskeletal History: has metal in left hand from [employer] during [place];. shattered pelvis; multiple compression fractures Neurological History: Reports: Neuropathy, Peripheral, Seizure Psychiatric History: Reports: Addiction, Depression, Eating Disorders, Suicide Attempt Other Psychiatric History: Malnutrition due to inability to swallow. Insomnia Endocrine/Metabolic History: Reports: Other (See Below) Other Endocrine/Metabolic History: recent elevated blood sugars, undiagnoised. thyroid cancer, failed to go to surgery on 09/01/16 Hematologic History: Reports: Anticoagulation Therapy Oncologic (Cancer) History: Reports: Lung, Thyroid Other Oncologic History: s/s of mesotheleoma - Infectious Disease History Infectious Disease History: Reports: Chicken Pox, Measles, Mumps - Past Surgical History HEENT Surgical History: Reports: Adenoidectomy, Cataract Surgery, Tonsillectomy Cardiovascular Surgical History: Reports: None Respiratory Surgical History: Reports: None GI Surgical History: Reports: Cholecystectomy, EGD, Esophageal Dilatation Male Surgical History: Reports: None Endocrine Surgical History: Reports: Thyroid Biopsy Neurological Surgical History: Reports: Spinal Fusion Musculoskeletal Surgical History: Reports: None Oncologic Surgical History: Reports: None Social & Family History - Family History Family Medical History: Noncontributory - Tobacco Use Smoking Status *Q: Current Every Day Smoker Years of Tobacco use: 50 Packs/Tins Daily: 1 - Caffeine Use Caffeine Use: Reports: Coffee, Energy Drinks, Tea Caffeine Use Comment: unknown, patient has difficulty answering questions. - Recreational Drug Use Recreational Drug Use: No - Living Situation & Occupation Living situation: Reports: , with Family Occupation: Disabled ED ROS GENERAL - Review of Systems Review Of Systems: See Below Constitutional: Reports: Malaise. Denies: Fever, Chills HEENT: Denies: Vision Change Respiratory: Denies: Shortness of Breath Cardiovascular: Denies: Chest Pain, Palpitations GI/Abdominal: Denies: Abdominal Pain, Nausea, Vomiting Skin: Reports: Bruising (Bruising is present with ecchymosis over the right eye , shallow abrasions over the left thigh and left knee) Neurological: Reports: Weakness, Gait Disturbance (Feels too weak to walk, lower extremities are weak). Denies: Trouble Speaking ED EXAM, GENERAL - Physical Exam Exam: See Below Exam Limited By: No Limitations General Appearance: Alert, No Apparent Distress Eye Exam: Bilateral Eye: EOMI (Some swelling and bruising of the right eyebrow, abrasion without swelling over the left eye) Neck: Normal Inspection Respiratory/Chest: No Respiratory Distress, Lungs Clear Cardiovascular: Regular Rate, Rhythm. No: Tachycardia, Extra Beats GI/Abdominal: Tender (Reactive some tenderness to palpation over the entire abdomen but no distention, bowel sounds are normal and no focal tenderness) Extremities: Pedal Edema (Just a trace of lower extremity edema, no asymmetry) Neurological: Alert, Oriented, No Motor/Sensory Deficits (Globally weak but no asymmetry) Skin Exam: Warm, Dry, Other (Bruising as above) Course - Vital Signs Last Recorded V/S: Last Vital Signs Temp 98 F 06/26/19 16:48 Pulse 59 L 06/26/19 18:31 Resp 14 06/26/19 18:31 BP 129/57 L 06/26/19 18:31 Pulse Ox 99 06/26/19 18:31 - Orders/Labs/Meds Labs: Laboratory Tests 06/26/19 06/26/19 06/26/19 Range/Units 17:59 18:13 18:13 WBC 8.1 (4.5-11.0) K/uL RBC 3.73 L (4.30-5.90) M/uL Hgb 12.9 (12.0-15.0) g/dL Hct 38.9 L (40.0-54.0) % MCV 104 H (80-98) fL MCH 35 H (27-31) pg MCHC 33 (32-36) % Plt Count 238 (150-400) K/uL Neut % (Auto) 64 (36-66) % Lymph % (Auto) 21 L (24-44) % [place] % (Auto) 13 H (2-6) % Eos % (Auto) 2 (2-4) % Baso % (Auto) 1 (0-1) % Sodium 150 H (140-148) mmol/L Potassium 4.2 (3.6-5.2) mmol/L Chloride 113 H (100-108) mmol/L Carbon Dioxide 28 (21-32) mmol/L Anion Gap 13.2 (5.0-14.0) mmol/L BUN 15 D (7-18) mg/dL Creatinine 0.6 L (0.8-1.3) mg/dL Est Cr Clr Drug Dosing 101.08 mL/min Estimated GFR (MDRD) > 60 (>60) Glucose 117 H (74-106) mg/dL Calcium 7.7 L (8.5-10.1) mg/dL Total Bilirubin 0.3 (0.2-1.0) mg/dL AST 287 H D (15-37) U/L ALT 175 H (12-78) U/L Alkaline Phosphatase 92 (46-116) U/L Ammonia 17 (11-32) mmol/L Total Protein 5.6 L (6.4-8.2) g/dL Albumin 3.2 L (3.4-5.0) g/dL Globulin 2.4 (2.3-3.5) g/dL Albumin/Globulin Ratio 1.3 (1.2-2.2) - Re-Assessments/Exams Free Text/Narrative Re-Assessment/Exam: 06/26/19 18:[address] without contrast will be obtained along with a CBC CMP and ammonia. A SPECIAL INSPECTOR search was done and he should have fentanyl patches until 05 July. He also has hydrocodone. 06/26/19 19:13 CT the head showed external swelling only, no intracranial pathology. White count and hemoglobin are normal. ALT and AST are moderately elevated compared to past levels, but the rest of his chemistry profile is normal or baseline. Ammonia 17. I asked the patient again if he has been avoiding alcohol, he seems somewhat evasive but insists that has been "a while". I do not see any urgent need to hospitalize at this time. 06/26/19 19:36 Patient wants to be discharged. He will return if his abdominal pain worsens or he develops persistent nausea and vomiting, otherwise recheck with his primary care provider next week. We will try a weekend without a fentanyl patch since he has plenty of hydrocodone to take orally. He may be overmedicated causing weakness and falling. Departure - Departure Time of Disposition: 20:14 Disposition: Home, Self-Care 01 Condition: Fair Clinical Impression: Weakness, Elevated LFTs Scalp contusion Qualifiers: Encounter type: initial encounter Qualified Code(s): S00.03XA - Contusion of scalp, initial encounter - Discharge Information Instructions: Weakness Referrals: Jamel Castillo MD [Primary Care Provider] - Forms: ED Department Discharge Care Plan Goals: Continue current medications except fentanyl patch. Increase diet as tolerated and concentrate on staying hydrated. Avoid alcohol and take medications only as prescribed. Recheck next week if not improving satisfactorily or return sooner if worsening such as increased abdominal pain or nausea and vomiting. Sepsis Event Note - Evaluation Sepsis Screening Result: No Definite Risk - Focused Exam Vital Signs: Vital Signs Temp Pulse Resp BP Pulse Ox 06/26/19 18:31 59 L 14 129/57 L 99 06/26/19 16:48 98 F 58 L 14 109/51 L 96 Date Exam was Performed: 06/26/19 Time Exam was Performed: 20:51
[2019-06-26 18:32] VITALS: BP 129/57; PULSE 59
--- NOTE | 2019-06-26 18:58 | CRLCT ---
INDICATION: Head injury TECHNIQUE: CT head without contrast. COMPARISON: 06/03/2019 FINDINGS: CSF spaces: Within normal limits for age. Brain parenchyma and extra-axial spaces: The john-white differentiation is normal. No sign of mass, hemorrhage, or midline shift. No extra-axial fluid collection. Skull base and calvarium: The visualized paranasal sinuses and mastoid air cells demonstrate no acute or significant findings. The visualized orbits are grossly unremarkable. No skull fractures. Right frontal scalp hematoma present. IMPRESSION: Right frontal scalp hematoma without evidence of fracture or intracranial hemorrhage. Dictated by Ernie Lau MD @ 06/26/2019 6:56:11 PM Please note that all CT scans at this facility use dose modulation, iterative reconstruction, and/or weight-based dosing when appropriate to reduce radiation dose to as low as reasonably achievable. Dictated by: Ernie Lau MD @ 06/26/2019 18:56:16 (Electronically Signed)
== END 2019-06-26 20:13 | disposition home or self-care (01) ==
LOC: JP.ED 15:59
DX: S00.03XA Contusion of scalp, initial encounter (principal); R53.1 Weakness; R94.5 Abnormal results of liver function studies; I11.0 Hypertensive heart disease with heart failure; I50.9 Heart failure, unspecified; J44.9 Chronic obstructive pulmonary disease, unspecified; Z88.0 Allergy status to penicillin; F32.9 Major depressive disorder, single episode, unspecified; Z79.899 Other long term (current) drug therapy; Z79.01 Long term (current) use of anticoagulants; W22.8XXA Striking against or struck by other objects, initial encounter
CPT/HCPCS: 36415; 70450; 80053; 82140; 85025; 99283; 99285-25

== ENCOUNTER 2019-06-28 19:29 | Inpatient (IN) | payer MEDICARE, MEDICAID ==
--- NOTE | 2019-06-28 19:35 | EDM.PDOC ---
ED HPI GENERAL MEDICAL PROBLEM - General Stated Complaint: MEDICAL Time Seen by Provider: 06/28/19 19:30 Source of Information: Reports: Patient, EMS, Police History Limitations: Reports: Altered Mental Status, Intoxication - History of Present Illness INITIAL COMMENTS - FREE TEXT/NARRATIVE: 69-year-old male brought in by ambulance because of bizarre behavior at home, thrashing around his apartment, hitting his head on the table and complaining of chest pain. There is a question of possible intoxication or overuse of narcotic medications. He was in the emergency room just 2 days ago with head injuries from falling, he had elevated LFTs at that time but insisted he was not drinking but there is suspicion that he was drinking some type of cooking wine or bryon today. There was also an empty bottle of hydrocodone. He is now calm down and answering questions appropriately but has slightly slurred speech and still complaining of some chest discomfort and abdominal discomfort. EKG done by EMS is normal. Onset: Unknown/Unsure Associated Symptoms: Reports: Confusion, Chest Pain, Other (Abdominal pain, headaches) - Related Data Allergies Allergy/AdvReac Type Severity Reaction Status Date / Time Penicillins Allergy Severe Anaphylactic Verified 06/28/19 19:43 Shock Home Meds: Home Meds PHENobarbitaL [Phenobarbital] 97.2 mg PO BID #60 tablet 09/16/16 [Rx] Phenytoin 200 mg PO BID #60 cap.er 09/16/16 [Rx] Citalopram [Citalopram HBr] 30 mg PO DAILY 10/22/16 [History] Apixaban [Eliquis] 5 mg PO BID 11/28/18 [History] Folic Acid 1 mg PO DAILY 11/28/18 [History] Losartan Potassium 25 mg PO DAILY 11/28/18 [History] Metoprolol Succinate [Toprol XL 50mg] 25 mg PO DAILY 11/28/18 [History] Multivitamin with Minerals [Multiple Vitamin] 1 tab PO DAILY 11/28/18 [History] Nitroglycerin 0.4 mg SL ASDIRECTED 11/28/18 [History] Tamsulosin HCl 0.4 mg PO DAILY 11/28/18 [History] Thiamine HCl [Vitamin B-1] 100 mg PO DAILY 11/28/18 [History] traZODone HCl [Trazodone HCl] 150 mg PO BEDTIME 11/28/18 [History] Acetaminophen [Tylenol] 650 mg PO Q4H PRN 12/01/18 [History] Acetaminophen/HYDROcodone [Olean 325-5 MG] 1 tab PO Q6H PRN 05/07/19 [History] Docusate Sodium [Colace] 100 mg PO DAILY 05/07/19 [History] Past Medical History HEENT History: Reports: Cataract, Impaired Vision, Macular Degeneration Cardiovascular History: Reports: Blood Clots/VTE/DVT, CAD, Heart Failure, Hypertension, SOB on Exertion, Syncope Respiratory History: Reports: COPD, PE, SOB, Other (See Below) Other Respiratory History: calcified pleural plaque on chest x-ray. Mesothelioma of both lungs Gastrointestinal History: Reports: Cholelithiasis, Chronic Constipation, GERD Genitourinary History: Reports: BPH, Renal Disease, Other (See Below) Other Genitourinary History: recent kidney function issue but undiagnoised at this time Musculoskeletal History: Reports: Back Pain, Chronic, Fracture, Osteoporosis, Other (See Below) Other Musculoskeletal History: has metal in left hand from [employer] during [place];. shattered pelvis; multiple compression fractures Neurological History: Reports: Neuropathy, Peripheral, Seizure Psychiatric History: Reports: Addiction, Depression, Eating Disorders, Suicide Attempt Other Psychiatric History: Malnutrition due to inability to swallow. Insomnia Endocrine/Metabolic History: Reports: Other (See Below) Other Endocrine/Metabolic History: recent elevated blood sugars, undiagnoised. thyroid cancer, failed to go to surgery on 09/01/16 Hematologic History: Reports: Anticoagulation Therapy Oncologic (Cancer) History: Reports: Lung, Thyroid Other Oncologic History: s/s of mesotheleoma - Infectious Disease History Infectious Disease History: Reports: Chicken Pox, Measles, Mumps - Past Surgical History HEENT Surgical History: Reports: Adenoidectomy, Cataract Surgery, Tonsillectomy Cardiovascular Surgical History: Reports: None Respiratory Surgical History: Reports: None GI Surgical History: Reports: Cholecystectomy, EGD, Esophageal Dilatation Male Surgical History: Reports: None Endocrine Surgical History: Reports: Thyroid Biopsy Neurological Surgical History: Reports: Spinal Fusion Musculoskeletal Surgical History: Reports: None Oncologic Surgical History: Reports: None Social & Family History - Family History Family Medical History: Noncontributory - Caffeine Use Caffeine Use: Reports: Coffee, Energy Drinks, Tea Caffeine Use Comment: unknown, patient has difficulty answering questions. - Living Situation & Occupation Living situation: Reports: , with Family Occupation: Disabled ED ROS GENERAL - Review of Systems Review Of Systems: See Below Constitutional: Reports: Malaise. Denies: Fever, Chills Respiratory: Denies: Shortness of Breath Cardiovascular: Reports: Chest Pain GI/Abdominal: Reports: Abdominal Pain. Denies: Nausea, Vomiting Musculoskeletal: Reports: Other (Hurts all over, neck and back pain) Skin: Reports: Bruising (Scattered bruising, significant periorbital ecchymosis of the right eye) Neurological: Reports: Confusion, Other (Patient is intoxicated) ED EXAM, GENERAL - Physical Exam Exam: See Below Exam Limited By: No Limitations General Appearance: Alert, No Apparent Distress Eye Exam: Bilateral Eye: EOMI, PERRL, Other (Significant periorbital ecchymosis from recent fall around the right eye) Head: Facial Swelling (Mild swelling about the right eyebrow) Neck: Supple Respiratory/Chest: No Respiratory Distress, Lungs Clear Cardiovascular: Regular Rate, Rhythm GI/Abdominal: Soft, Other (Patient complains of tenderness no matter where you palpate on the abdomen even extremely lightly) Extremities: Other (Various bruises from falls scattered on both arms and legs) . No: Pedal Edema Neurological: Alert, Oriented, Other (Global weakness, difficulty standing) Course - Vital Signs Last Recorded V/S: Last Vital Signs Temp 98.7 F 06/28/19 22:00 Pulse 64 06/28/19 22:00 Resp 16 06/28/19 22:00 BP 131/58 L 06/28/19 22:00 Pulse Ox 94 L 06/28/19 22:00 - Orders/Labs/Meds Orders: Medication Orders Hydrocodone Bitart/Acetaminophen (Olean 325-5 Mg) 1 tab PO Q6H PRN PRN Reason: Pain (moderate 4-6) Apixaban (Eliquis) 5 mg PO BID [facility] Citalopram Hydrobromide (Celexa) 30 mg PO DAILY [facility] Docusate Sodium (Colace) 100 mg PO DAILY [facility] Folic Acid (Folic Acid) 1 mg PO DAILY [facility] Losartan Potassium (Cozaar) 25 mg PO DAILY [facility] Metoprolol Succinate (Toprol Xl) 25 mg PO DAILY [facility] Multivitamins/Minerals (Thera M Plus) 1 tab PO DAILY [facility] Pantoprazole Sodium (Protonix) 40 mg PO ACBREAKFAST [facility] Phenobarbital (Phenobarbital) 97.2 mg PO BID [facility] Phenytoin Sodium (Phenytoin) 200 mg PO BID [facility] Tamsulosin HCl (Flomax) 0.4 mg PO DAILY [facility] Thiamine HCl (Vitamin B-1) 100 mg PO DAILY [facility] Labs: Laboratory Tests 06/28/19 06/28/19 06/28/19 Range/Units 19:32 19:48 19:48 WBC 5.4 (4.5-11.0) K/uL RBC 3.59 L (4.30-5.90) M/uL Hgb 12.4 (12.0-15.0) g/dL Hct 37.2 L (40.0-54.0) % MCV 104 H (80-98) fL MCH 35 H (27-31) pg MCHC 33 (32-36) % Plt Count 217 (150-400) K/uL Neut % (Auto) 58 (36-66) % Lymph % (Auto) 32 (24-44) % [place] % (Auto) 6 (2-6) % Eos % (Auto) 3 (2-4) % Baso % (Auto) 1 (0-1) % Sodium 149 H (140-148) mmol/L Potassium 3.6 (3.6-5.2) mmol/L Chloride 115 H (100-108) mmol/L Carbon Dioxide 26 (21-32) mmol/L Anion Gap 11.6 (5.0-14.0) mmol/L BUN 11 (7-18) mg/dL Creatinine 0.4 L (0.8-1.3) mg/dL Est Cr Clr Drug Dosing 139.78 mL/min Estimated GFR (MDRD) > 60 (>60) Glucose 91 (74-106) mg/dL Calcium 7.4 L (8.5-10.1) mg/dL Total Bilirubin 0.3 (0.2-1.0) mg/dL AST 176 H (15-37) U/L ALT 201 H (12-78) U/L Alkaline Phosphatase 123 H (46-116) U/L Troponin I (0.000-0.056) ng/mL Total Protein 5.3 L (6.4-8.2) g/dL Albumin 3.0 L (3.4-5.0) g/dL Globulin 2.3 (2.3-3.5) g/dL Albumin/Globulin Ratio 1.3 (1.2-2.2) Amylase 40 (25-115) U/L Lipase 124 (73-393) U/L Acetaminophen 2.7 L (10.0-30.0) ug/mL Ethyl Alcohol 193 mg/dL 06/28/19 Range/Units 19:48 WBC (4.5-11.0) K/uL RBC (4.30-5.90) M/uL Hgb (12.0-15.0) g/dL Hct (40.0-54.0) % MCV (80-98) fL MCH (27-31) pg MCHC (32-36) % Plt Count (150-400) K/uL Neut % (Auto) (36-66) % Lymph % (Auto) (24-44) % [place] % (Auto) (2-6) % Eos % (Auto) (2-4) % Baso % (Auto) (0-1) % Sodium (140-148) mmol/L Potassium (3.6-5.2) mmol/L Chloride (100-108) mmol/L Carbon Dioxide (21-32) mmol/L Anion Gap (5.0-14.0) mmol/L BUN (7-18) mg/dL Creatinine (0.8-1.3) mg/dL Est Cr Clr Drug Dosing mL/min Estimated GFR (MDRD) (>60) Glucose (74-106) mg/dL Calcium (8.5-10.1) mg/dL Total Bilirubin (0.2-1.0) mg/dL AST (15-37) U/L ALT (12-78) U/L Alkaline Phosphatase (46-116) U/L Troponin I 0.023 (0.000-0.056) ng/mL Total Protein (6.4-8.2) g/dL Albumin (3.4-5.0) g/dL Globulin (2.3-3.5) g/dL Albumin/Globulin Ratio (1.2-2.2) Amylase (25-115) U/L Lipase (73-393) U/L Acetaminophen (10.0-30.0) ug/mL Ethyl Alcohol mg/dL Meds: Medications Generic Name Dose Route Start Last Admin Trade Name Freq PRN Reason Stop Dose Admin Hydrocodone Bitart/Acetaminophen 1 tab 06/28/19 22:26 Olean 325-5 Mg PO Q6H PRN Pain (moderate 4-6) Apixaban 5 mg 06/29/19 09:00 Eliquis PO BID [facility] Citalopram Hydrobromide 30 mg 06/29/19 09:00 Celexa PO DAILY [facility] Docusate Sodium 100 mg 06/29/19 09:00 Colace PO DAILY [facility] Folic Acid 1 mg 06/29/19 09:00 Folic Acid PO DAILY [facility] Losartan Potassium 25 mg 06/29/19 09:00 Cozaar PO DAILY [facility] Metoprolol Succinate 25 mg 06/29/19 09:00 Toprol Xl PO DAILY [facility] Multivitamins/Minerals 1 tab 06/29/19 09:00 Thera M Plus PO DAILY [facility] Pantoprazole Sodium 40 mg 06/29/19 07:30 Protonix PO ACBREAKFAST [facility] Phenobarbital 97.2 mg 06/29/19 09:00 Phenobarbital PO BID [facility] Phenytoin Sodium 200 mg 06/29/19 09:00 Phenytoin PO BID [facility] Tamsulosin HCl 0.4 mg 06/29/19 09:00 Flomax PO DAILY [facility] Thiamine HCl 100 mg 06/29/19 09:00 Vitamin B-1 PO DAILY [facility] - Re-Assessments/Exams Free Text/Narrative Re-Assessment/Exam: 06/28/19 21:21 EtOH is 0.193, CBC is stable. Liver enzymes are still elevated consistent with readings [address] was again negative for acute trauma. I do not feel this patient is safe to go home, Dr. Castillo he agreed to admit him for observation and further evaluation tomorrow when he is no longer under the influence of alcohol. Departure - Departure Time of Disposition: 21:52 Disposition: Admitted As Inpatient 66 Clinical Impression: Weakness Alcohol intoxication Qualifiers: Complication of substance-induced condition: uncomplicated Qualified Code(s): F10.920 - Alcohol use, unspecified with intoxication, uncomplicated Scalp contusion Qualifiers: Encounter type: initial encounter Qualified Code(s): S00.03XA - Contusion of scalp, initial encounter - Discharge Information Sepsis Event Note - Focused Exam Vital Signs: Vital Signs Temp Pulse Resp BP Pulse Ox 06/28/19 20:02 98.7 F 64 14 120/57 L 96 06/28/19 19:44 98.1 F 67 14 122/52 L 93 L Date Exam was Performed: 06/28/19 Time Exam was Performed: 23:20
[2019-06-28 20:19] LABS: ACETAMINOPHEN 2.7 ug/mL (10.0-30.0)
--- NOTE | 2019-06-28 21:42 | CRLCT ---
INDICATION: Intoxication, head injury TECHNIQUE: Head CT without contrast. COMPARISON: June 26, 2019 FINDINGS: CSF spaces: Within normal limits for age. Brain parenchyma: There are nonspecific low attenuation white matter changes consistent with chronic microvascular disease. No sign of mass, hemorrhage, or midline shift. Skull base and calvarium: The visualized paranasal sinuses and mastoid air cells demonstrate no acute or significant findings. The visualized orbits are grossly unremarkable. No skull fractures. There is intracranial atherosclerosis. Right frontal scalp contusion, decreased in size compared to the prior study. IMPRESSION: 1. No acute intracranial hemorrhage or skull fracture. 2. Slight decrease in size of right frontal scalp contusion. Please note that all CT scans at this facility use dose modulation, iterative reconstruction, and/or weight-based dosing when appropriate to reduce radiation dose to as low as reasonably achievable. Dictated by Radha Welsh MD @ Jun 28 2019 9:37PM Signed by Dr. Radha Welsh @ Jun 28 2019 9:41PM
[2019-06-29] MEDS: Acetaminophen/HYDROcodone 325-5 MG Tab PO PRN (04:21)
--- NOTE | 2019-06-29 06:36 | PN ---
DATE OF SERVICE: 06/29/2019 SUBJECTIVE: A 69-year-old male, currently living in independent senior apartment housing after relocation from assisted care facility in [place], is seen today for followup. It is noted that he has had recent confusion, generalized weakness, repeated falls, and has had resumption of his alcohol consumption with a longstanding history of chronic alcoholism. Through the night, he was intermittently awake, attempting to wander, at one point had exited his room and descended to the 1st floor by elevator, found near the intensive care unit entrance with the explanation that he was searching for the bathroom. He was assisted back to bed. Continues to repeatedly rise from bed and attempt to exit his assigned room. He has had generalized pain, nonspecific of long-standing duration. Confusion requires monitoring and reorientation. No agitation or combativeness is noted. OBJECTIVE: VITAL SIGNS: Temperature 36.3, pulse rate 66 and regular, blood pressure 148/64, respiratory rate 16 with O2 saturations of 97% on room air. HEENT: Generalized facial abrasion injuries with left supraorbital laceration and right periorbital ecchymosis from repeated falls and injuries again is noted. NECK: No nuchal rigidity. No stridor. LUNGS: Clear, easy, non-tachypneic. HEART: Regular without murmurs. EXTREMITIES: No acute injuries noted. IMPRESSION AND PLAN: Confusion and weakness secondary to poor nutrition and recurrence of alcohol use. Will not be able to return to his independent living arrangement. I have requested that Social Service investigate a vulnerable adult presentation and make arrangements for assignment to a residential facility with increased monitoring. In the interim, we will continue to provide supportive cares in the hospital setting. Rito Castillo MD /[id number]
[2019-06-29] MEDS: Thiamine 100 MG Tab PO SCH (08:32)
[2019-06-29] MEDS: Multivitamins with Iron/Calcium/Folic Acid/Minerals Tab PO SCH (08:32)
[2019-06-29] MEDS: Docusate Sodium 100 MG Cap PO SCH (08:33)
[2019-06-29] MEDS ORDERED: Citalopram 20 MG Tab PO SCH (09:00)
[2019-06-29] MEDS ORDERED: Metoprolol Succinate 50 MG Tab.ER PO SCH (09:00)
[2019-06-29] MEDS: Losartan 25 MG Tab PO SCH ×2 (09:15→10:21)
[2019-06-29] MEDS: LORazepam 1 MG Tab PO SCH ×6 (09:19→17:00)
[2019-06-29] MEDS: Phenytoin 100 MG Cap.ER PO SCH ×2 (10:20→22:56)
[2019-06-29] MEDS: Folic Acid 1 MG Tab PO SCH (10:21)
[2019-06-29] MEDS: Tamsulosin 0.4 MG Cap.ER PO SCH (10:21)
[2019-06-29] MEDS: Apixaban 5 MG Tab PO SCH ×2 (10:21→22:57)
[2019-06-29] MEDS: Pantoprazole 40 MG Tab.CR PO SCH (10:21)
[2019-06-29] MEDS: Citalopram 10 MG Tab PO SCH (10:21)
[2019-06-29] MEDS: Metoprolol Succinate 25 MG Tab.ER PO SCH (10:22)
[2019-06-29] MEDS: PHENobarbital 32.4 MG Tab PO SCH ×2 (10:28→23:00)
[2019-06-29] MEDS: Gabapentin 400 MG Cap PO SCH ×2 (10:28→16:55)
--- NOTE | 2019-06-29 13:49 | HP ---
IDENTIFYING DATA: Dereck Degroot is a 69-year-old male from [facility]. CHIEF COMPLAINT: Confusion, delirium, weakness and falls. HISTORY OF PRESENT ILLNESS: An elderly male, has a longstanding history of chronic alcohol abuse, chronic pain secondary to osteoporosis and musculoskeletal disease, as well as hypertension, seizure disorder, and COPD. He was hospitalized last in [place] in early 2018. He was transitioned to half-way care at [facility] and subsequently transferred to assisted care residential unit at [facility]. In May, with patient's status appearing stable, he elected to transfer to a senior apartment with independent living arrangements at [facility] in [place]. Since that time, home care has been following and has concerns regarding patient's ability to care for self. It is noted that nursing service reported his prescriptions for analgesics with 30-day supplies have been completed early. They have discussed more frequent home visits in order to assist with medication setup, senior meals are provided during the weekdays, though patient is left to arrange for his own meals on weekends. By his admission, he ate nothing today. Reports he had potato chips yesterday, does not typically cook. He was seen in the emergency room 2 days ago with fall and extracranial head injury. CT imaging revealed chronic microvascular changes without acute intracranial injury. Today, neighbors reported thrashing and banging in the apartment. He was found to have fallen and was delirious and agitated. He was transferred to the emergency room for evaluation. He was found to be acutely intoxicated, though caregivers had taken care to remove standard drinking alcohol from his apartment residence. He admits to drinking cooking maikel today, being unable to quantify the amount of alcohol consumed. Reports he has not been using his analgesics with no current active prescription. He does have chronic musculoskeletal back and chest pain, as well as head pain from recent falls. He underwent CT imaging again this evening with noted extracranial injury without intracranial injury secondary to fall. PAST MEDICAL HISTORY: Chronic alcohol abuse, history of osteoporosis. Additionally, he has a history of hypertension, COPD, and chronic back pain. Seizure disorder is managed with anticonvulsant therapies. Records also indicate a history of congestive heart failure and remote history of mesothelioma. ALLERGIES: REPORTED TO PENICILLIN. CURRENT MEDICATIONS: Fentanyl 50 mcg patch every 72 hours, 30-day prescription was completed early by patient, with refill anticipated on 07/05/2019; hydrocodone with acetaminophen 5/325 q.6 hours p.r.n., no current active prescription was in the patient's possession; phenytoin extended release 200 mg b.i.d.; phenobarbital 97.2 mg b.i.d., albuterol metered dose inhaler 2 puffs q.4 hours p.r.n.; docusate 100 mg daily; acetaminophen 650 mg q.6 hours p.r.n. pain; citalopram 30 mg daily; multivitamin with minerals 1 tablet daily; metoprolol succinate 25 mg daily; losartan 25 mg daily; Eliquis 5 mg b.i.d.; folic acid 1 mg daily; nitroglycerin 0.4 mg sublingually p.r.n. angina; tamsulosin 0.4 mg daily for urinary retention; thiamine 100 mg daily; trazodone 150 mg at bedtime; furosemide 20 mg daily; pantoprazole 40 mg q.a.m. Influenza and pneumococcal vaccine series are noted to be current. SOCIAL HISTORY: , has recently transitioned from assisted care facility to independent senior apartment dwelling with home care followup. Had a previous history of residence in [place] at the time of relocation to [place]. It was noted he had been living on the streets in [place] and was brought to [place] by family to provide supervision with his residence, though family is not currently involved in his medical care. FAMILY HISTORY: Unable to provide factual information. REVIEW OF SYSTEMS: NEUROLOGIC: Confusion, delirium noted this evening. History of chronic seizure disorder and chronic anxiety. CARDIAC: History of congestive heart failure, hypertension, and questionable history of coronary artery disease. No history of diabetes. RESPIRATORY: COPD with previous tobacco use. GI: Recurrent dyspepsia, managed with PPI therapy. Denies emesis, hematemesis, melena, or hematochezia. Nonspecific generalized anterior abdominal pain, unable to quantify the amount of alcohol and caffeinated beverages consumed by patient. : Slowed urinary stream. No urinary incontinence reported. No renal insufficiency. MUSCULOSKELETAL: Chronic low back pain. Previous lumbar surgical procedure. General arthralgias. PHYSICAL EXAMINATION: GENERAL: Appearance is that of a weakened elderly male, complaining repeatedly of nonspecific pain in the chest, abdomen, and extremities. VITAL SIGNS: On admission to the ER, temperature 98.7, pulse 64 and regular, respiratory rate 14, blood pressure 120/57, O2 sats 96% on room air. HEENT: Superficial laceration above the left eyebrow. Periorbital ecchymoses of the right face. Symmetrical extraocular eye movements. No evidence of acute dental injury. NECK: Brisk carotid pulses. No bruits or JVD. LUNGS: Non-tachypneic, symmetrical, mildly diminished breath sounds. No retractions. HEART: Regular without murmurs or gallops. Controlled rate. ABDOMEN: Thin, nondistended. No obvious organomegaly. No CVA pain. Diffuse anterior abdominal pain without guarding or rebound. and RECTAL: Omitted. EXTREMITIES: Thin. No pitting edema. SKIN: [place]. Non-diaphoretic. Good radial and posterior tibial pulses noted. LABORATORY DATA AND X-RAYS: On admission; WBC 5.4, hemoglobin 12.4, hematocrit 37.2, platelet count 217,000, with 58 segs, 32 lymphocytes, 6 monos. Sodium 149, potassium 3.6, BUN 11, creatinine 0.4. GFR greater than 60. Calcium 7.4, glucose 91, alkaline phosphatase mildly elevated 125, ALT 201, with AST 176, amylase 40, lipase 124. Acetaminophen level is detectable at a low level of 2.7. Ethyl alcohol level at 0.19. Troponin 0.023. CT imaging of the head; extracranial hematoma, microvascular disease, chronic in nature, no acute intracranial bleed. IMPRESSION: 1. Recurrent falls. 2. Acute alcohol intoxication with history of chronic alcohol use. 3. History of seizure disorder. 4. Chronic obstructive pulmonary disease with ongoing tobacco use. 5. Hypertension. 6. Chronic musculoskeletal pain, previous lumbar spine surgery. 7. Recurrent dyspepsia. 8. Hypertension with heart failure. 9. Osteoporosis. PLAN: The patient is admitted to observation status. It is the examiner's belief that since transition from a monitored living arrangement and assisted care facility with assistance with meal preparations, residential upkeep, laundry, and medication set up, he has shown inability to safely care for self as evidenced by poor dietary intake on weekends without provisions of prepared meals, inability to follow medication schedules with use of his analgesic therapy and questionable noncompliance with remainder of maintenance medications, and resumption of alcohol use with acute intoxication noted today and resultant confusion and falls with subsequent injury. Therefore, I do feel that he presents as a vulnerable adult and would ask Freight Agent to investigate and if found to be such would mandate placement in a long-term living situation with more stringent oversight with supervision and monitoring to avoid problems noted in his independent living arrangement. Full code status will be maintained. Provide 2 g sodium diet. Abstain from alcohol. Provide his usual maintenance medication with the exception of fentanyl transderm patch. Does have p.r.n. simple acetaminophen and hydrocodone with acetaminophen on a limited basis for musculoskeletal complaints. Additionally, will provide pantoprazole for nonspecific abdominal pain. Labs are otherwise unremarkable without evidence of cardiac or respiratory decompensation. We will pursue investigation of placement in a safe living arrangement with assistance from Discharge Planning and Social Service Agency of [facility]. Rito Castillo MD /[id number]
--- NOTE | 2019-06-29 15:58 | PCM.PN ---
- General Info Date of Service: 06/29/19 Subjective Update: Mr. Degroot is a 69-year-old gentleman who was admitted through the emergency department with a recent history of progressive weakness and falls, secondary to recurrent alcohol use. He has been living independently over the last month , prior to that had been in a correction and then transition to assisted living. While in assisted living he did not use alcohol but has been using it daily since he got his own apartment. Alcohol level was elevated at the time of admission, he is already showing evidence of alcohol withdrawal. There is also evidence that he has been abusing his prescription narcotics. - Review of Systems General: Reports: Weakness. Denies: Fever, Chills Pulmonary: Reports: No Symptoms Cardiovascular: Reports: No Symptoms Gastrointestinal: Reports: No Symptoms Psychiatric: Reports: Confusion, Agitation, Cravings, Hallucinations - Patient Data Vitals - Most Recent: Last Vital Signs Temp 97.3 F 06/29/19 15:33 Pulse 55 L 06/29/19 15:33 Resp 20 06/29/19 15:33 BP 149/60 H 06/29/19 15:33 Pulse Ox 96 06/29/19 15:33 Weight - Most Recent: 126 lb I&O - Last 24 Hours: Intake & Output 06/29/19 06/29/19 06/29/19 06:59 14:59 22:59 Intake Total 1920 Output Total 500 200 Balance -500 1720 Lab Results Last 24 Hours: Laboratory Results - last 24 hr 06/28/19 06/28/19 06/28/19 Range/Units 19:32 19:48 19:48 WBC 5.4 (4.5-11.0) K/uL RBC 3.59 L (4.30-5.90) M/uL Hgb 12.4 (12.0-15.0) g/dL Hct 37.2 L (40.0-54.0) % MCV 104 H (80-98) fL MCH 35 H (27-31) pg MCHC 33 (32-36) % Plt Count 217 (150-400) K/uL Neut % (Auto) 58 (36-66) % Lymph % (Auto) 32 (24-44) % [place] % (Auto) 6 (2-6) % Eos % (Auto) 3 (2-4) % Baso % (Auto) 1 (0-1) % PT (9.5-12.0) sec INR (0.80-1.20) Sodium 149 H (140-148) mmol/L Potassium 3.6 (3.6-5.2) mmol/L Chloride 115 H (100-108) mmol/L Carbon Dioxide 26 (21-32) mmol/L Anion Gap 11.6 (5.0-14.0) mmol/L BUN 11 (7-18) mg/dL Creatinine 0.4 L (0.8-1.3) mg/dL Est Cr Clr Drug Dosing 139.78 mL/min Estimated GFR (MDRD) > 60 (>60) Glucose 91 (74-106) mg/dL Calcium 7.4 L (8.5-10.1) mg/dL Magnesium (1.8-2.4) mg/dL Total Bilirubin 0.3 (0.2-1.0) mg/dL AST 176 H (15-37) U/L ALT 201 H (12-78) U/L Alkaline Phosphatase 123 H (46-116) U/L Troponin I (0.000-0.056) ng/mL Total Protein 5.3 L (6.4-8.2) g/dL Albumin 3.0 L (3.4-5.0) g/dL Globulin 2.3 (2.3-3.5) g/dL Albumin/Globulin Ratio 1.3 (1.2-2.2) Amylase 40 (25-115) U/L Lipase 124 (73-393) U/L Acetaminophen 2.7 L (10.0-30.0) ug/mL Ethyl Alcohol 193 mg/dL 06/28/19 06/29/19 06/29/19 Range/Units 19:48 09:00 09:00 WBC 5.6 (4.5-11.0) K/uL RBC 3.78 L (4.30-5.90) M/uL Hgb 13.3 (12.0-15.0) g/dL Hct 38.3 L (40.0-54.0) % MCV 101 H (80-98) fL MCH 35 H (27-31) pg MCHC 35 (32-36) % Plt Count 212 (150-400) K/uL Neut % (Auto) 58 (36-66) % Lymph % (Auto) 31 (24-44) % [place] % (Auto) 7 H (2-6) % Eos % (Auto) 3 (2-4) % Baso % (Auto) 1 (0-1) % PT (9.5-12.0) sec INR (0.80-1.20) Sodium 142 (140-148) mmol/L Potassium 3.9 (3.6-5.2) mmol/L Chloride 109 H (100-108) mmol/L Carbon Dioxide 24 (21-32) mmol/L Anion Gap 12.9 (5.0-14.0) mmol/L BUN 11 (7-18) mg/dL Creatinine 0.5 L (0.8-1.3) mg/dL Est Cr Clr Drug Dosing 112.72 mL/min Estimated GFR (MDRD) > 60 (>60) Glucose 103 (74-106) mg/dL Calcium 7.8 L (8.5-10.1) mg/dL Magnesium 1.7 L (1.8-2.4) mg/dL Total Bilirubin 0.5 D (0.2-1.0) mg/dL AST 118 H (15-37) U/L ALT 182 H (12-78) U/L Alkaline Phosphatase 116 (46-116) U/L Troponin I 0.023 (0.000-0.056) ng/mL Total Protein 5.4 L (6.4-8.2) g/dL Albumin 3.1 L (3.4-5.0) g/dL Globulin 2.3 (2.3-3.5) g/dL Albumin/Globulin Ratio 1.4 (1.2-2.2) Amylase (25-115) U/L Lipase (73-393) U/L Acetaminophen (10.0-30.0) ug/mL Ethyl Alcohol mg/dL 06/29/19 Range/Units 09:00 WBC (4.5-11.0) K/uL RBC (4.30-5.90) M/uL Hgb (12.0-15.0) g/dL Hct (40.0-54.0) % MCV (80-98) fL MCH (27-31) pg MCHC (32-36) % Plt Count (150-400) K/uL Neut % (Auto) (36-66) % Lymph % (Auto) (24-44) % Brooks % (Auto) (2-6) % Eos % (Auto) (2-4) % Baso % (Auto) (0-1) % PT 12.9 H (9.5-12.0) sec INR 1.21 H (0.80-1.20) Sodium (140-148) mmol/L Potassium (3.6-5.2) mmol/L Chloride (100-108) mmol/L Carbon Dioxide (21-32) mmol/L Anion Gap (5.0-14.0) mmol/L BUN (7-18) mg/dL Creatinine (0.8-1.3) mg/dL Est Cr Clr Drug Dosing mL/min Estimated GFR (MDRD) (>60) Glucose (74-106) mg/dL Calcium (8.5-10.1) mg/dL Magnesium (1.8-2.4) mg/dL Total Bilirubin (0.2-1.0) mg/dL AST (15-37) U/L ALT (12-78) U/L Alkaline Phosphatase (46-116) U/L Troponin I (0.000-0.056) ng/mL Total Protein (6.4-8.2) g/dL Albumin (3.4-5.0) g/dL Globulin (2.3-3.5) g/dL Albumin/Globulin Ratio (1.2-2.2) Amylase (25-115) U/L Lipase (73-393) U/L Acetaminophen (10.0-30.0) ug/mL Ethyl Alcohol mg/dL Med Orders - Current: Current Medications Hydrocodone Bitart/Acetaminophen ([place] 325-5 Mg) 1 tab PO Q6H PRN PRN Reason: Pain (moderate 4-6) Last Admin: 06/29/19 04:21 Dose: 1 tab Apixaban (Eliquis) 5 mg PO BID [facility] Last Admin: 06/29/19 10:21 Dose: 5 mg Citalopram Hydrobromide (Celexa) 30 mg PO DAILY [facility] Last Admin: 06/29/19 10:21 Dose: 30 mg Docusate Sodium (Colace) 100 mg PO DAILY [facility] Last Admin: 06/29/19 08:33 Dose: 100 mg Folic Acid (Folic Acid) 1 mg PO DAILY [facility] Last Admin: 06/29/19 10:21 Dose: 1 mg Gabapentin (Neurontin) 400 mg PO Q8H [facility] Stop: 07/03/19 01:01 Last Admin: 06/29/19 10:28 Dose: 400 mg Magnesium Sulfate 2 gm/ Premix 50 mls @ 25 mls/hr IV ONETIME ONE Stop: 06/29/19 17:51 Lorazepam (Ativan) 0 mg PO ASDIRECTED [facility]; Protocol Last Admin: 06/29/19 14:40 Dose: 1 mg Lorazepam (Ativan) 0 mg IV ASDIRECTED [facility]; Protocol Losartan Potassium (Cozaar) 25 mg PO DAILY [facility] Last Admin: 06/29/19 10:21 Dose: 25 mg Magnesium Oxide (Magnesium Oxide) 400 mg PO BID [facility] Metoprolol Succinate (Toprol Xl) 25 mg PO DAILY [facility] Last Admin: 06/29/19 10:22 Dose: 25 mg Multivitamins/Minerals (Thera M Plus) 1 tab PO DAILY [facility] Last Admin: 06/29/19 08:32 Dose: 1 tab Pantoprazole Sodium (Protonix) 40 mg PO ACBREAKFAST [facility] Last Admin: 06/29/19 10:21 Dose: 40 mg Phenobarbital (Phenobarbital) 97.2 mg PO BID [facility] Last Admin: 06/29/19 10:28 Dose: 97.2 mg Phenytoin Sodium (Phenytoin) 200 mg PO BID [facility] Last Admin: 06/29/19 10:20 Dose: 200 mg Tamsulosin HCl (Flomax) 0.4 mg PO DAILY [facility] Last Admin: 06/29/19 10:21 Dose: 0.4 mg Thiamine HCl (Vitamin B-1) 100 mg PO DAILY [facility] Last Admin: 06/29/19 08:32 Dose: 100 mg Discontinued Medications Citalopram Hydrobromide (Celexa) 30 mg PO DAILY [facility] Metoprolol Succinate (Toprol Xl) 25 mg PO DAILY [facility] - Exam Quality Assessment: DVT Prophylaxis General: Alert, Cooperative, Moderate Distress Lungs: Clear to Auscultation, Normal Respiratory Effort Cardiovascular: Regular Rate, Regular Rhythm, No Murmurs GI/Abdominal Exam: Soft, Non-Tender, No Organomegaly, No Distention Extremities: Non-Tender, No Pedal Edema Sepsis Event Note - Evaluation Sepsis Screening Result: No Definite Risk - Focused Exam Vital Signs: Vital Signs Temp Pulse Pulse Resp BP BP Pulse Ox 06/29/19 15:33 97.3 F 55 L 20 149/60 H 96 06/29/19 10:32 98.5 F 70 18 137/63 98 06/29/19 10:22 62 144/65 H 06/29/19 10:21 144/65 H 06/29/19 06:01 98.0 F 62 18 144/65 H 98 Date Exam was Performed: 06/29/19 Time Exam was Performed: 16:03 - Problem List Review Problem List Initiated/Reviewed/Updated: Yes - My Orders Last 24 Hours: My Active Orders 06/29/19 08:59 CIWAA Assessment [RC] Q4H Notify Provider [RC] PRN 06/29/19 09:00 Pulse Oximetry [RC] CONTINUOUS Gabapentin [Neurontin] 400 mg PO Q8H LORazepam [Ativan] See Protocol PO ASDIRECTED 06/29/19 11:01 Patient Status [ADT] Routine 06/29/19 15:52 Magnesium Sulfate/Water [Magnesium Sulfate in Water Premix] 2 gm Premix Bag 1 bag IV ONETIME 06/29/19 16:00 LORazepam [Ativan] See Protocol IV ASDIRECTED Magnesium Oxide 400 mg PO BID 06/30/19 05:00 CBC WITH AUTO DIFF [HEME] Timed COMPREHENSIVE METABOLIC PN,CMP [CHEM] Timed MAGNESIUM [CHEM] Timed - Plan Plan:: ASSESSMENT AND PLAN ALCOHOL WITHDRAWAL-already showing evidence of alcohol withdrawal delirium. -Transfer to ICU -Alcohol withdrawal protocol -Gabapentin 400 mg p.o. every 8 hours x4 days, then 200 mg p.o. every 8 hours for an additional 4 days COPD-no evidence of acute exacerbation at the present time SEIZURE DISORDER -Continue outpatient medical therapy MAINTENANCE ISSUES -DVT prophylaxis; Lovenox 40 mg subcu daily -GI prophylaxis; not indicated -Chavarria catheter; not indicated -Nutrition; regular diet -Nicotine dependence; not required CODE STATUS-FULL CODE ADMISSION STATUS-patient will be admitted to inpatient status, expect at least a 2 night hospital stay for evaluation and management of problems as outlined above. At the time of this admission I do not reasonably expected evaluation and management of this problem will require more than a 96 hour hospital stay. DISPOSITION-anticipate discharge to home after the hospital stay. PRIMARY CARE PROVIDER-
[2019-06-29] MEDS ORDERED: LORazepam 2 MG/ML SDV IV SCH (16:00)
[2019-06-29] MEDS: Magnesium Oxide 400 MG Tab PO SCH ×2 (16:55→22:56)
[2019-06-29] MEDS ORDERED: Magnesium Sulfate/Water 2 GM in Premix Bag 1 BAG IV ONE (17:00)
[2019-06-30] MEDS: LORazepam 1 MG Tab PO SCH ×6 (00:51→22:20)
[2019-06-30] MEDS: Gabapentin 400 MG Cap PO SCH ×3 (00:52→17:11)
[2019-06-30] MEDS: Apixaban 5 MG Tab PO SCH ×2 (08:01→20:11)
[2019-06-30] MEDS: Folic Acid 1 MG Tab PO SCH (08:01)
[2019-06-30] MEDS: Docusate Sodium 100 MG Cap PO SCH (08:01)
[2019-06-30] MEDS: Magnesium Oxide 400 MG Tab PO SCH ×2 (08:01→20:12)
[2019-06-30] MEDS: Tamsulosin 0.4 MG Cap.ER PO SCH (08:01)
[2019-06-30] MEDS: Pantoprazole 40 MG Tab.CR PO SCH (08:02)
[2019-06-30] MEDS: Citalopram 10 MG Tab PO SCH (08:02)
[2019-06-30] MEDS: Thiamine 100 MG Tab PO SCH (08:02)
[2019-06-30] MEDS: Losartan 25 MG Tab PO SCH (08:02)
[2019-06-30] MEDS: Phenytoin 100 MG Cap.ER PO SCH ×2 (08:02→20:12)
[2019-06-30] MEDS: Multivitamins with Iron/Calcium/Folic Acid/Minerals Tab PO SCH (08:02)
[2019-06-30] MEDS: PHENobarbital 32.4 MG Tab PO SCH ×2 (08:04→20:12)
[2019-06-30] MEDS: Metoprolol Succinate 25 MG Tab.ER PO SCH (09:01)
--- NOTE | 2019-06-30 10:25 | PCM.PN ---
- General Info Date of Service: 06/30/19 Subjective Update: Mr. Degroot is continued to show evidence of alcohol withdrawal, requiring intermittent use of lorazepam. He was more agitated yesterday, more sedate today. Remains confused, hemodynamically stable. He is unable to provide a meaningful history concerning recent symptoms or review of systems because of confusion and delirium. - Patient Data Vitals - Most Recent: Last Vital Signs Temp 96 F 06/30/19 08:00 Pulse 55 L 06/30/19 09:01 Resp 19 06/30/19 10:00 BP 128/62 06/30/19 10:00 Pulse Ox 96 06/30/19 10:00 Weight - Most Recent: 126 lb I&O - Last 24 Hours: Intake & Output 06/29/19 06/30/19 06/30/19 22:59 06:59 14:59 Intake Total 50 Output Total 400 300 Balance 50 -400 -300 Lab Results Last 24 Hours: Laboratory Results - last 24 hr 06/30/19 06/30/19 Range/Units 06:02 06:02 WBC 7.1 (4.5-11.0) K/uL RBC 3.90 L (4.30-5.90) M/uL Hgb 13.5 (12.0-15.0) g/dL Hct 39.3 L (40.0-54.0) % MCV 101 H (80-98) fL MCH 35 H (27-31) pg MCHC 34 (32-36) % Plt Count 186 (150-400) K/uL Neut % (Auto) 61 (36-66) % Lymph % (Auto) 29 (24-44) % [place] % (Auto) 6 (2-6) % Eos % (Auto) 3 (2-4) % Baso % (Auto) 0 (0-1) % Sodium 139 L (140-148) mmol/L Potassium 3.6 (3.6-5.2) mmol/L Chloride 107 (100-108) mmol/L Carbon Dioxide 29 (21-32) mmol/L Anion Gap 6.6 (5.0-14.0) mmol/L BUN 15 (7-18) mg/dL Creatinine 0.5 L (0.8-1.3) mg/dL Est Cr Clr Drug Dosing 112.72 mL/min Estimated GFR (MDRD) > 60 (>60) Glucose 92 (74-106) mg/dL Calcium 7.5 L (8.5-10.1) mg/dL Magnesium 2.2 (1.8-2.4) mg/dL Total Bilirubin 1.0 D (0.2-1.0) mg/dL AST 98 H (15-37) U/L ALT 156 H (12-78) U/L Alkaline Phosphatase 110 (46-116) U/L Total Protein 5.0 L (6.4-8.2) g/dL Albumin 2.8 L (3.4-5.0) g/dL Globulin 2.2 L (2.3-3.5) g/dL Albumin/Globulin Ratio 1.3 (1.2-2.2) Med Orders - Current: Current Medications Hydrocodone Bitart/Acetaminophen ([place] 325-5 Mg) 1 tab PO Q6H PRN PRN Reason: Pain (moderate 4-6) Last Admin: 06/29/19 04:21 Dose: 1 tab Apixaban (Eliquis) 5 mg PO BID [facility] Last Admin: 06/30/19 08:01 Dose: 5 mg Citalopram Hydrobromide (Celexa) 30 mg PO DAILY [facility] Last Admin: 06/30/19 08:02 Dose: 30 mg Docusate Sodium (Colace) 100 mg PO DAILY [facility] Last Admin: 06/30/19 08:01 Dose: 100 mg Folic Acid (Folic Acid) 1 mg PO DAILY [facility] Last Admin: 06/30/19 08:01 Dose: 1 mg Gabapentin (Neurontin) 400 mg PO Q8H [facility] Stop: 07/03/19 01:01 Last Admin: 06/30/19 08:01 Dose: 400 mg Lorazepam (Ativan) 0 mg PO ASDIRECTED [facility]; Protocol Last Admin: 06/30/19 08:01 Dose: 1 mg Lorazepam (Ativan) 0 mg IV ASDIRECTED [facility]; Protocol Losartan Potassium (Cozaar) 25 mg PO DAILY [facility] Last Admin: 06/30/19 08:02 Dose: 25 mg Magnesium Oxide (Magnesium Oxide) 400 mg PO BID [facility] Last Admin: 06/30/19 08:01 Dose: 400 mg Metoprolol Succinate (Toprol Xl) 25 mg PO DAILY [facility] Last Admin: 06/30/19 09:01 Dose: Not Given Multivitamins/Minerals (Thera M Plus) 1 tab PO DAILY [facility] Last Admin: 06/30/19 08:02 Dose: 1 tab Pantoprazole Sodium (Protonix) 40 mg PO ACBREAKFAST [facility] Last Admin: 06/30/19 08:02 Dose: 40 mg Phenobarbital (Phenobarbital) 97.2 mg PO BID [facility] Last Admin: 06/30/19 08:04 Dose: 97.2 mg Phenytoin Sodium (Phenytoin) 200 mg PO BID [facility] Last Admin: 06/30/19 08:02 Dose: 200 mg Tamsulosin HCl (Flomax) 0.4 mg PO DAILY [facility] Last Admin: 06/30/19 08:01 Dose: 0.4 mg Thiamine HCl (Vitamin B-1) 100 mg PO DAILY [facility] Last Admin: 06/30/19 08:02 Dose: 100 mg Discontinued Medications Citalopram Hydrobromide (Celexa) 30 mg PO DAILY [facility] Magnesium Sulfate 2 gm/ Premix 50 mls @ 25 mls/hr IV ONETIME ONE Stop: 06/29/19 18:59 Last Admin: 06/29/19 16:51 Dose: 25 mls/hr Metoprolol Succinate (Toprol Xl) 25 mg PO DAILY [facility] - Exam Quality Assessment: DVT Prophylaxis General: Cooperative, Mild Distress, Sedated, Lethargic Lungs: Clear to Auscultation, Normal Respiratory Effort Cardiovascular: Regular Rate, Regular Rhythm, No Murmurs GI/Abdominal Exam: Soft, Non-Tender, No Organomegaly, No Distention Extremities: Non-Tender, No Pedal Edema Sepsis Event Note - Evaluation Sepsis Screening Result: No Definite Risk - Focused Exam Vital Signs: Vital Signs Temp Pulse Pulse Resp BP BP Pulse Ox 06/30/19 10:00 19 128/62 96 06/30/19 09:01 55 L 06/30/19 09:00 13 123/64 97 06/30/19 08:02 148/67 H 06/30/19 08:00 96 F 14 148/67 H 98 06/30/19 07:00 47 L 14 142/64 H 99 06/30/19 06:00 56 L 9 L 137/61 98 06/30/19 05:00 45 L 19 132/59 L 99 06/30/19 04:00 46 L 16 137/59 L 99 06/30/19 03:00 47 L 16 140/59 L 99 06/30/19 02:00 48 L 15 138/62 95 06/30/19 01:00 45 L 15 136/59 L 97 06/30/19 00:00 95.6 F 45 L 12 138/59 L 99 06/29/19 23:00 96.1 F 43 L 13 129/70 97 Date Exam was Performed: 06/30/19 Time Exam was Performed: 10:20 - Problem List Review Problem List Initiated/Reviewed/Updated: Yes - My Orders Last 24 Hours: My Active Orders 06/29/19 11:01 Patient Status [ADT] Routine 06/29/19 16:00 LORazepam [Ativan] See Protocol IV ASDIRECTED 06/29/19 16:26 Telemetry Monitoring [Cardiac Monitoring] [RC] .As Directed 06/29/19 16:28 Seizure Precautions [OM.PC] Routine 06/29/19 17:00 Magnesium Oxide 400 mg PO BID 07/01/19 05:00 COMPREHENSIVE METABOLIC PN,CMP [CHEM] Timed - Plan Plan:: ASSESSMENT AND PLAN ALCOHOL WITHDRAWAL-continues to show evidence of alcohol withdrawal with confusion and delirium. Agitation has improved with current management. -Alcohol withdrawal protocol -Gabapentin 400 mg p.o. every 8 hours x4 days, then 200 mg p.o. every 8 hours for an additional 4 days COPD-no evidence of acute exacerbation at the present time SEIZURE DISORDER -Continue outpatient medical therapy MAINTENANCE ISSUES -DVT prophylaxis; Lovenox 40 mg subcu daily -GI prophylaxis; not indicated -Chavarria catheter; not indicated -Nutrition; regular diet -Nicotine dependence; not required CODE STATUS-FULL CODE ADMISSION STATUS-patient will be admitted to inpatient status, expect at least a 2 night hospital stay for evaluation and management of problems as outlined above. At the time of this admission I do not reasonably expected evaluation and management of this problem will require more than a 96 hour hospital stay. DISPOSITION-anticipate discharge to home after the hospital stay. PRIMARY CARE PROVIDER-
[2019-06-30] MEDS: Acetaminophen/HYDROcodone 325-5 MG Tab PO PRN ×2 (12:43→20:12)
[2019-07-01] MEDS: Gabapentin 400 MG Cap PO SCH ×2 (00:45→08:01)
[2019-07-01] MEDS: Acetaminophen/HYDROcodone 325-5 MG Tab PO PRN ×2 (05:42→11:43)
[2019-07-01] MEDS: LORazepam 1 MG Tab PO SCH ×3 (05:43→14:32)
[2019-07-01] MEDS: Pantoprazole 40 MG Tab.CR PO SCH (07:58)
[2019-07-01] MEDS: Magnesium Oxide 400 MG Tab PO SCH (08:00)
[2019-07-01] MEDS: Thiamine 100 MG Tab PO SCH (08:00)
[2019-07-01] MEDS: Multivitamins with Iron/Calcium/Folic Acid/Minerals Tab PO SCH (08:00)
[2019-07-01] MEDS: Apixaban 5 MG Tab PO SCH (08:00)
[2019-07-01] MEDS: Phenytoin 100 MG Cap.ER PO SCH (08:01)
[2019-07-01] MEDS: PHENobarbital 32.4 MG Tab PO SCH (08:01)
[2019-07-01] MEDS: Tamsulosin 0.4 MG Cap.ER PO SCH (08:01)
[2019-07-01] MEDS: Folic Acid 1 MG Tab PO SCH (08:01)
[2019-07-01] MEDS: Citalopram 10 MG Tab PO SCH (08:01)
[2019-07-01] MEDS: Metoprolol Succinate 25 MG Tab.ER PO SCH (08:03)
[2019-07-01] MEDS: Losartan 25 MG Tab PO SCH (08:03)
[2019-07-01] MEDS: Docusate Sodium 100 MG Cap PO SCH (08:04)
--- NOTE | 2019-07-01 09:54 | PCM.DCSUM1 ---
Discharge Summary - Hospital Course Brief History: Mr. Degroot is a 69-year-old gentleman who was admitted through the emergency department with weakness and recent falls secondary to alcohol and narcotic abuse. - Discharge Data Discharge Date: 07/01/19 Discharge Disposition: Home, W Home Health Agency 06 Condition: Stable - Referral to Home Health Date of Face to Face Encounter: 07/01/19 Reason for Homebound Status: Weakness Primary Care Physician: PCP None Skilled Need: Weakness - Discharge Diagnosis/Problem(s) (1) Alcohol intoxication SNOMED Code(s): 49381480 ICD Code: F10.929 - ALCOHOL USE, UNSPECIFIED WITH INTOXICATION, UNSPECIFIED Status: Acute Current Visit: Yes Qualifiers: Complication of substance-induced condition: uncomplicated Qualified Code(s ): F10.920 - Alcohol use, unspecified with intoxication, uncomplicated (2) Elevated LFTs SNOMED Code(s): 085230852, 131126665 ICD Code: R94.5 - ABNORMAL RESULTS OF LIVER FUNCTION STUDIES Status: Acute Current Visit: No (3) Alcohol abuse SNOMED Code(s): 34150447 ICD Code: F10.10 - ALCOHOL ABUSE, UNCOMPLICATED Status: Chronic Current Visit: No (4) Seizure disorder SNOMED Code(s): 754301558 ICD Code: G40.909 - EPILEPSY, UNSP, NOT INTRACTABLE, WITHOUT STATUS EPILEPTICUS Status: Chronic Current Visit: No - Patient Summary/Data Consults: Consultations 06/28/19 22:30 Consult to Case Management/Neurophysiological Technician [CONS] Routine Comment: Physician Instructions: Service(s) to be Consulted: Neurophysiological Technician Reason for Consult: vulnerable adult Case Management Specialty/Neurophysiological Technician: Youth Advocate Special Instructions: Unable to live independently with hx of weakness, repeated falls, confusion secondary to chronic alcohol use. Unable to self-administer medications. Vulnerable adult. Date Notified: 06/28/19 06/29/19 00:02 Consult to Spiritual Care [CONS] Routine Spiritual Care Reason for Consult: Spiritual Distress Spiritual Care Specialty: Pastoral Care Special Instructions: Living Will Hospital Course: Mr. Degroot is a 69-year-old gentleman who was admitted through the emergency department with weakness and recent falls secondary to ongoing and longstanding alcohol and narcotic abuse. Up until recently he had been living at assisted living facility in [facility]. He transitioned to his own apartment here in [place] and has been abusing alcohol over the past month. He has a history of chronic pain and has been prescribed a limited amount of narcotics on a monthly basis. Recent history is that he been falling frequently in his apartment because of progressive weakness. He was brought into the emergency department and was intoxicated with an elevated alcohol level. He was admitted to the hospital and given IV fluids for hydration. He was started on gabapentin protocol for alcohol withdrawal as well as usual alcohol withdrawal protocol. He did develop mild symptoms of alcohol withdrawal with delirium requiring use of intermittent lorazepam. Home health care services reported that the patient had had a prescription for narcotics filled on 25 June, with 90 pills. When they went to his apartment there were only 9 left after approximately 1 week. To this point he has refused placement for alcohol and narcotic dependence. He would like to be discharged home and is currently medically stable. Prior to discharge [facility] social worker masters will be over to talk with him and they will be monitoring him after discharge. Follow-up appointment will be scheduled with his primary care provider within 1 week. Activity will be as tolerated and he will resume his usual diet. He is instructed to avoid all alcohol use. - Patient Instructions Diet: Usual Diet as Tolerated, No Alcoholic Beverages Activity: As Tolerated Other/Special Instructions: Please schedule follow-up appointment with primary care provider within 1 week. - Discharge Plan *PRESCRIPTION DRUG MONITORING PROGRAM REVIEWED*: Not Applicable *COPY OF PRESCRIPTION DRUG MONITORING REPORT IN PATIENT MONSE: Not Applicable Home Medications: Home Meds PHENobarbitaL [Phenobarbital] 97.2 mg PO BID #60 tablet 09/16/16 [Rx] Phenytoin 200 mg PO BID #60 cap.er 09/16/16 [Rx] Citalopram [Citalopram HBr] 30 mg PO DAILY 10/22/16 [History] Apixaban [Eliquis] 5 mg PO BID 11/28/18 [History] Folic Acid 1 mg PO DAILY 11/28/18 [History] Losartan Potassium 25 mg PO DAILY 11/28/18 [History] Metoprolol Succinate [Toprol XL 50mg] 25 mg PO DAILY 11/28/18 [History] Multivitamin with Minerals [Multiple Vitamin] 1 tab PO DAILY 11/28/18 [History] Nitroglycerin 0.4 mg SL ASDIRECTED 11/28/18 [History] Tamsulosin HCl 0.4 mg PO DAILY 11/28/18 [History] Thiamine HCl [Vitamin B-1] 100 mg PO DAILY 11/28/18 [History] traZODone HCl [Trazodone HCl] 150 mg PO BEDTIME 11/28/18 [History] Acetaminophen [Tylenol] 650 mg PO Q4H PRN 12/01/18 [History] Acetaminophen/HYDROcodone [[place] 325-5 MG] 1 tab PO Q6H PRN 05/07/19 [History] Docusate Sodium [Colace] 100 mg PO DAILY 05/07/19 [History] Patient Handouts: Alcohol Intoxication Referrals: Jamel Castillo MD [Physician] - - Discharge Summary/Plan Comment DC Time >30 min.: No - Patient Data Vitals - Most Recent: Last Vital Signs Temp 96.1 F 07/01/19 08:00 Pulse 66 07/01/19 08:03 Resp 14 07/01/19 08:00 BP 138/63 07/01/19 08:03 Pulse Ox 97 07/01/19 08:00 Weight - Most Recent: 126 lb I&O - Last 24 hours: Intake & Output 06/30/19 07/01/19 07/01/19 22:59 06:59 14:59 Intake Total 1000 480 Balance 1000 480 Lab Results - Last 24 hrs: Laboratory Results - last 24 hr 07/01/19 Range/Units 04:50 Sodium 140 (140-148) mmol/L Potassium 3.6 (3.6-5.2) mmol/L Chloride 103 (100-108) mmol/L Carbon Dioxide 30 (21-32) mmol/L Anion Gap 6.7 (5.0-14.0) mmol/L BUN 16 (7-18) mg/dL Creatinine 0.5 L (0.8-1.3) mg/dL Est Cr Clr Drug Dosing 112.72 mL/min Estimated GFR (MDRD) > 60 (>60) Glucose 118 H (74-106) mg/dL Calcium 7.9 L (8.5-10.1) mg/dL Total Bilirubin 0.4 D (0.2-1.0) mg/dL AST 68 H (15-37) U/L ALT 137 H (12-78) U/L Alkaline Phosphatase 140 H (46-116) U/L Total Protein 5.2 L (6.4-8.2) g/dL Albumin 2.9 L (3.4-5.0) g/dL Globulin 2.3 (2.3-3.5) g/dL Albumin/Globulin Ratio 1.3 (1.2-2.2) Med Orders - Current: Current Medications Hydrocodone Bitart/Acetaminophen ([place] 325-5 Mg) 1 tab PO Q6H PRN PRN Reason: Pain (moderate 4-6) Last Admin: 07/01/19 05:42 Dose: 1 tab Apixaban (Eliquis) 5 mg PO BID [facility] Last Admin: 07/01/19 08:00 Dose: 5 mg Citalopram Hydrobromide (Celexa) 30 mg PO DAILY [facility] Last Admin: 07/01/19 08:01 Dose: 30 mg Docusate Sodium (Colace) 100 mg PO DAILY [facility] Last Admin: 07/01/19 08:04 Dose: Not Given Folic Acid (Folic Acid) 1 mg PO DAILY [facility] Last Admin: 07/01/19 08:01 Dose: 1 mg Gabapentin (Neurontin) 400 mg PO Q8H [facility] Stop: 07/03/19 01:01 Last Admin: 07/01/19 08:01 Dose: 400 mg Lorazepam (Ativan) 0 mg PO ASDIRECTED [facility]; Protocol Last Admin: 07/01/19 05:43 Dose: 1 mg Lorazepam (Ativan) 0 mg IV ASDIRECTED [facility]; Protocol Losartan Potassium (Cozaar) 25 mg PO DAILY [facility] Last Admin: 07/01/19 08:03 Dose: 25 mg Magnesium Oxide (Magnesium Oxide) 400 mg PO BID [facility] Last Admin: 07/01/19 08:00 Dose: 400 mg Metoprolol Succinate (Toprol Xl) 25 mg PO DAILY [facility] Last Admin: 07/01/19 08:03 Dose: 25 mg Multivitamins/Minerals (Thera M Plus) 1 tab PO DAILY [facility] Last Admin: 07/01/19 08:00 Dose: 1 tab Pantoprazole Sodium (Protonix) 40 mg PO ACBREAKFAST [facility] Last Admin: 07/01/19 07:58 Dose: 40 mg Phenobarbital (Phenobarbital) 97.2 mg PO BID [facility] Last Admin: 07/01/19 08:01 Dose: 97.2 mg Phenytoin Sodium (Phenytoin) 200 mg PO BID [facility] Last Admin: 07/01/19 08:01 Dose: 200 mg Tamsulosin HCl (Flomax) 0.4 mg PO DAILY [facility] Last Admin: 07/01/19 08:01 Dose: 0.4 mg Thiamine HCl (Vitamin B-1) 100 mg PO DAILY [facility] Last Admin: 07/01/19 08:00 Dose: 100 mg Discontinued Medications Citalopram Hydrobromide (Celexa) 30 mg PO DAILY [facility] Magnesium Sulfate 2 gm/ Premix 50 mls @ 25 mls/hr IV ONETIME ONE Stop: 06/29/19 18:59 Last Admin: 06/29/19 16:51 Dose: 25 mls/hr Metoprolol Succinate (Toprol Xl) 25 mg PO DAILY [facility] - Exam General: Reports: Alert, Oriented, Cooperative, No Acute Distress Lungs: Reports: Clear to Auscultation, Normal Respiratory Effort Cardiovascular: Reports: Regular Rate, Regular Rhythm, No Murmurs GI/Abdominal Exam: Soft, Non-Tender, No Organomegaly, No Distention Extremities: Non-Tender, No Pedal Edema
[2019-07-01 10:42] VITALS: BP 136/59; PULSE 70
== END 2019-07-01 15:06 | disposition home health service (06) | DRG 897 ==
LOC: JP.ED 19:29 → JP.MS 21:17 → OBSVTOIN 06-29 11:00 → JP.ICU 06-29 15:15
PROVIDERS: ADMIT Family Medicine; ATTEND Hospitalist
DX: F10.129 Alcohol abuse with intoxication, unspecified (principal); R53.1 Weakness; F10.221 Alcohol dependence with intoxication delirium; Z91.81 History of falling; F10.239 Alcohol dependence with withdrawal, unspecified; R94.5 Abnormal results of liver function studies; G40.909 Epilepsy, unspecified, not intractable, without status epilepticus; R10.13 Epigastric pain; J44.9 Chronic obstructive pulmonary disease, unspecified; M81.0 Age-related osteoporosis without current pathological fracture; M54.9 Dorsalgia, unspecified; G89.29 Other chronic pain; I50.9 Heart failure, unspecified; I11.0 Hypertensive heart disease with heart failure; R29.6 Repeated falls; H54.7 Unspecified visual loss; Z86.718 Personal history of other venous thrombosis and embolism; Z86.711 Personal history of pulmonary embolism; H35.30 Unspecified macular degeneration; Y90.6 Blood alcohol level of 120-199 mg/100 ml; K59.09 Other constipation; N28.9 Disorder of kidney and ureter, unspecified; G62.9 Polyneuropathy, unspecified; I25.10 Atherosclerotic heart disease of native coronary artery without angina pectoris; K21.9 Gastro-esophageal reflux disease without esophagitis; G47.00 Insomnia, unspecified; N40.0 Benign prostatic hyperplasia without lower urinary tract symptoms; F32.9 Major depressive disorder, single episode, unspecified; S00.03XA Contusion of scalp, initial encounter; W19.XXXA Unspecified fall, initial encounter; Z85.118 Personal history of other malignant neoplasm of bronchus and lung; Z85.850 Personal history of malignant neoplasm of thyroid; Z79.01 Long term (current) use of anticoagulants; Z79.899 Other long term (current) drug therapy; Z98.49 Cataract extraction status, unspecified eye; Z88.0 Allergy status to penicillin; Z79.51 Long term (current) use of inhaled steroids; Z90.79 Acquired absence of other genital organ(s); Z90.49 Acquired absence of other specified parts of digestive tract; Z98.1 Arthrodesis status
CPT/HCPCS: 36415 ×2; 70450; 80053 ×2; 82150; 83690; 83735; 84484; 85025 ×2; 85610; 99285; A9270 ×16; G0480 ×2; G0378; J3475

== ENCOUNTER 2019-07-02 23:56 | Observation (INO) | payer MEDICARE, MEDICAID ==
--- NOTE | 2019-07-03 00:10 | EDM.PDOCBH ---
ED HPI GENERAL MEDICAL PROBLEM - General Chief Complaint: Drug or Alcohol Abuse Stated Complaint: MED[facility] Time Seen by Provider: 07/03/19 00:00 Source of Information: Reports: EMS History Limitations: Reports: Intoxication - History of Present Illness INITIAL COMMENTS - FREE TEXT/NARRATIVE: 69-year-old male who was just discharged from the hospital yesterday, mainly AMA , went home and started drinking cooking bryon and tonight has abdominal discomfort. He called EMS because he was rolling around on the kitchen floor complaining of pain. Is a very similar presentation to 5 days ago when his neighbors called because he was running around complaining of pain and banging his head on the table. His behavior becomes uncontrollable when he is intoxicated. His pills were spilled all over the apartment. Onset: Unknown/Unsure Right Abdomen Pain Score (Numeric/FACES): 8 Generalized Pain Score (Numeric/FACES): 10 - Related Data Allergies Allergy/AdvReac Type Severity Reaction Status Date / Time Penicillins Allergy Severe Anaphylactic Verified 07/03/19 00:30 Shock Home Meds: Home Meds PHENobarbitaL [Phenobarbital] 97.2 mg PO BID #60 tablet 09/16/16 [Rx] Phenytoin 200 mg PO BID #60 cap.er 09/16/16 [Rx] Citalopram [Citalopram HBr] 30 mg PO DAILY 10/22/16 [History] Apixaban [Eliquis] 5 mg PO BID 11/28/18 [History] Folic Acid 1 mg PO DAILY 11/28/18 [History] Losartan Potassium 25 mg PO DAILY 11/28/18 [History] Metoprolol Succinate [Toprol XL 50mg] 25 mg PO DAILY 11/28/18 [History] Multivitamin with Minerals [Multiple Vitamin] 1 tab PO DAILY 11/28/18 [History] Nitroglycerin 0.4 mg SL ASDIRECTED 11/28/18 [History] Tamsulosin HCl 0.4 mg PO DAILY 11/28/18 [History] Thiamine HCl [Vitamin B-1] 100 mg PO DAILY 11/28/18 [History] traZODone HCl [Trazodone HCl] 150 mg PO BEDTIME 11/28/18 [History] Acetaminophen [Tylenol] 650 mg PO Q4H PRN 12/01/18 [History] Acetaminophen/HYDROcodone [[place] 325-5 MG] 1 tab PO Q6H PRN 05/07/19 [History] Docusate Sodium [Colace] 100 mg PO DAILY 05/07/19 [History] Past Medical History HEENT History: Reports: Cataract, Impaired Vision, Macular Degeneration Cardiovascular History: Reports: Blood Clots/VTE/DVT, CAD, Heart Failure, Hypertension, SOB on Exertion, Syncope Respiratory History: Reports: COPD, PE, SOB, Other (See Below) Other Respiratory History: calcified pleural plaque on chest x-ray. Mesothelioma of both lungs Gastrointestinal History: Reports: Cholelithiasis, Chronic Constipation, GERD Genitourinary History: Reports: BPH, Renal Disease, Other (See Below) Other Genitourinary History: recent kidney function issue but undiagnoised at this time Musculoskeletal History: Reports: Back Pain, Chronic, Fracture, Osteoporosis, Other (See Below) Other Musculoskeletal History: has metal in left hand from [employer] during [place];. shattered pelvis; multiple compression fractures Neurological History: Reports: Neuropathy, Peripheral, Seizure Psychiatric History: Reports: Addiction, Depression, Eating Disorders, Suicide Attempt Other Psychiatric History: Malnutrition due to inability to swallow. Insomnia Endocrine/Metabolic History: Reports: Other (See Below) Other Endocrine/Metabolic History: recent elevated blood sugars, undiagnoised. thyroid cancer, failed to go to surgery on 09/01/16 Hematologic History: Reports: Anticoagulation Therapy Oncologic (Cancer) History: Reports: Lung, Thyroid Other Oncologic History: s/s of mesotheleoma - Infectious Disease History Infectious Disease History: Reports: Chicken Pox, Measles, Mumps - Past Surgical History HEENT Surgical History: Reports: Adenoidectomy, Cataract Surgery, Tonsillectomy Cardiovascular Surgical History: Reports: None Respiratory Surgical History: Reports: None GI Surgical History: Reports: Cholecystectomy, EGD, Esophageal Dilatation Male Surgical History: Reports: None Endocrine Surgical History: Reports: Thyroid Biopsy Neurological Surgical History: Reports: Spinal Fusion Musculoskeletal Surgical History: Reports: None Oncologic Surgical History: Reports: None Social & Family History - Family History Family Medical History: Noncontributory - Caffeine Use Caffeine Use: Reports: Coffee, Energy Drinks, Tea Caffeine Use Comment: unknown, patient has difficulty answering questions. - Living Situation & Occupation Living situation: Reports: , with Family Occupation: Disabled ED ROS GENERAL - Review of Systems Review Of Systems: See Below Reason Not Obtained: Patient is not cooperating with review of systems Respiratory: Denies: Shortness of Breath GI/Abdominal: Reports: Abdominal Pain. Denies: Nausea, Vomiting Skin: Reports: Bruising (Numerous scattered bruises and abrasions on the extremities) ED EXAM, BEHAVIORAL HEALTH - Physical Exam Exam: See Below Exam Limited By: Uncooperative General Appearance: Alert Eye Exam: Bilateral Eye: Other (Periorbital ecchymosis around the right eye) Neck: Normal Inspection, Supple Respiratory/Chest: Lungs Clear GI/Abdominal: Other (Abdomen is again hard to examine because even the lightest palpation causes him to wince with pain) Extremities: Other (Scattered abrasions and bruises, no edema or asymmetry) Psychiatric: Restless, Agitated COURSE, BEHAVIORAL HEALTH COMP - Course Vital Signs: Last Vital Signs Temp 96.7 F 07/03/19 02:47 Pulse 63 07/03/19 02:47 Resp 16 07/03/19 02:47 BP 124/50 L 07/03/19 02:47 Pulse Ox 94 L 07/03/19 03:00 Orders, Labs, Meds: Medication Orders Acetaminophen (Tylenol) 650 mg PO Q4H PRN PRN Reason: Pain (Mild 1-3)/fever Hydrocodone Bitart/Acetaminophen ([place] 325-5 Mg) 1 tab PO Q4H PRN PRN Reason: Pain (moderate 4-6) Albuterol (Proventil Neb Soln) 2.5 mg NEB Q4H PRN PRN Reason: Shortness Of Breath/wheezing Citalopram Hydrobromide (Celexa) 30 mg PO DAILY [facility] Folic Acid (Folic Acid) 1 mg PO DAILY [facility] Hydromorphone HCl (Dilaudid) 1 mg IVPUSH Q3H PRN PRN Reason: Pain Sodium Chloride (Normal Saline) 1,000 mls @ 125 mls/hr IV ASDIRECTED [facility] Lorazepam (Ativan) 1 mg IV Q6H PRN PRN Reason: Nausea/Vomiting Last Admin: 07/03/19 02:48 Dose: 1 mg Losartan Potassium (Cozaar) 25 mg PO DAILY [facility] Metoprolol Succinate (Toprol Xl) 25 mg PO DAILY [facility] Multivitamins/Minerals (Thera M Plus) 1 tab PO DAILY [facility] Nitroglycerin (Nitrostat) 0.4 mg SL Q5M PRN PRN Reason: ANGINA Ondansetron HCl (Zofran Odt) 4 mg PO Q6H PRN PRN Reason: Nausea able to take PO Pantoprazole Sodium (Protonix Iv) 40 mg IVPUSH Q12H [facility] Last Admin: 07/03/19 02:47 Dose: 40 mg Phenobarbital (Phenobarbital) 97.2 mg PO BID [facility] Phenytoin Sodium (Phenytoin) 200 mg PO BID [facility] Tamsulosin HCl (Flomax) 0.4 mg PO DAILY [facility] Thiamine HCl (Vitamin B-1) 100 mg PO DAILY [facility] Last Admin: 07/03/19 02:47 Dose: 100 mg Trazodone HCl (Trazodone) 150 mg PO BEDTIME [facility] Laboratory Tests 07/03/19 07/03/19 07/03/19 Range/Units 00:10 00:10 00:10 WBC 7.6 (4.5-11.0) K/uL RBC 3.69 L (4.30-5.90) M/uL Hgb 13.1 (12.0-15.0) g/dL Hct 37.3 L (40.0-54.0) % MCV 101 H (80-98) fL MCH 36 H (27-31) pg MCHC 35 (32-36) % Plt Count 203 (150-400) K/uL Neut % (Auto) 42 (36-66) % Lymph % (Auto) 45 H (24-44) % [place] % (Auto) 9 H (2-6) % Eos % (Auto) 4 (2-4) % Baso % (Auto) 1 (0-1) % Sodium 147 (140-148) mmol/L Potassium 4.5 (3.6-5.2) mmol/L Chloride 111 H (100-108) mmol/L Carbon Dioxide 29 (21-32) mmol/L Anion Gap 11.5 (5.0-14.0) mmol/L BUN 12 (7-18) mg/dL Creatinine 0.5 L (0.8-1.3) mg/dL Est Cr Clr Drug Dosing TNP Estimated GFR (MDRD) > 60 (>60) Glucose 105 (74-106) mg/dL Calcium 7.7 L (8.5-10.1) mg/dL Total Bilirubin 0.3 (0.2-1.0) mg/dL AST 84 H (15-37) U/L ALT 143 H (12-78) U/L Alkaline Phosphatase 126 H (46-116) U/L Total Protein 5.9 L (6.4-8.2) g/dL Albumin 3.3 L (3.4-5.0) g/dL Globulin 2.6 (2.3-3.5) g/dL Albumin/Globulin Ratio 1.3 (1.2-2.2) Acetaminophen 0.0 L (10.0-30.0) ug/mL Ethyl Alcohol 288 mg/dL Medications Generic Name Dose Route Start Last Admin Trade Name Freq PRN Reason Stop Dose Admin Acetaminophen 650 mg 07/03/19 01:22 Tylenol PO Q4H PRN Pain (Mild 1-3)/fever Hydrocodone Bitart/Acetaminophen 1 tab 07/03/19 01:22 [place] 325-5 Mg PO Q4H PRN Pain (moderate 4-6) Albuterol 2.5 mg 07/03/19 01:22 Proventil Neb Soln NEB Q4H PRN Shortness Of Breath/wheezing Citalopram Hydrobromide 30 mg 07/03/19 09:00 Celexa PO DAILY [facility] Folic Acid 1 mg 07/03/19 09:00 Folic Acid PO DAILY [facility] Hydromorphone HCl 1 mg 07/03/19 01:25 Dilaudid IVPUSH Q3H PRN Pain Sodium Chloride 1,000 mls @ 125 mls/hr 07/03/19 01:30 Normal Saline IV ASDIRECTED [facility] Lorazepam 1 mg 07/03/19 01:22 07/03/19 02:48 Ativan IV 1 mg Q6H PRN Administration Nausea/Vomiting Losartan Potassium 25 mg 07/03/19 09:00 Cozaar PO DAILY [facility] Metoprolol Succinate 25 mg 07/03/19 09:00 Toprol Xl PO DAILY [facility] Multivitamins/Minerals 1 tab 07/03/19 09:00 Thera M Plus PO DAILY [facility] Nitroglycerin 0.4 mg 07/03/19 01:30 Nitrostat SL Q5M PRN [facility] Ondansetron HCl 4 mg 07/03/19 01:22 Zofran Odt PO Q6H PRN Nausea able to take PO Pantoprazole Sodium 40 mg 07/03/19 03:00 07/03/19 02:47 Protonix Iv IVPUSH 40 mg Q12H [facility] Administration Phenobarbital 97.2 mg 07/03/19 09:00 Phenobarbital PO BID [facility] Phenytoin Sodium 200 mg 07/03/19 09:00 Phenytoin PO BID [facility] Tamsulosin HCl 0.4 mg 07/03/19 09:00 Flomax PO DAILY [facility] Thiamine HCl 100 mg 07/03/19 01:30 07/03/19 02:47 Vitamin B-1 PO 100 mg DAILY [facility] Administration Trazodone HCl 150 mg 07/03/19 21:00 Trazodone PO BEDTIME [facility] Discontinued Medications Generic Name Dose Route Start Last Admin Trade Name Freq PRN Reason Stop Dose Admin Al Hydroxide/Mg Hydroxide 30 ml 07/03/19 00:14 07/03/19 00:33 Mag-Al Plus PO 07/03/19 00:15 30 ml ONETIME ONE Administration Hydromorphone HCl 1 mg 07/03/19 00:15 07/03/19 00:25 Dilaudid IVPUSH 07/03/19 00:16 1 mg ONETIME ONE Administration Re-Assessment/Re-Exam: EtOH, acetaminophen, CBC and CMP were again obtained. Patient will likely have to be readmitted, and I do think should be sent home again. Patient continued to act agitated and complaining of generalized pain, chest pain and abdominal pain. I think he is likely withdrawing from narcotics as he does not have his fentanyl patch and he seems to be out of his hydrocodone as well. He was given 1 mg of IV Dilaudid and within 1 to 2 minutes he calmed down and stopped complaining of pain and agitation. We also gave him 30 cc of oral Maalox. Acetaminophen level is 0.0 confirming he has not taken any of his Vicodin recently so he likely is withdrawing from narcotics. He was resting quietly after the IV Dilaudid. LFTs are mildly elevated consistent with past readings, hemoglobin and white count are normal. Blood alcohol is 0.288. Departure - Departure Time of Disposition: :18 Disposition: Admitted As Inpatient 66 Clinical Impression: Narcotic withdrawal Alcohol intoxication Qualifiers: Complication of substance-induced condition: with unspecified complication Qualified Code(s): F10.929 - Alcohol use, unspecified with intoxication, unspecified - Discharge Information Sepsis Event Note - Focused Exam Vital Signs: Vital Signs Temp Pulse Resp BP Pulse Ox 07/03/19 01:06 88 14 128/62 96 07/03/19 00:00 96.4 F 62 18 131/58 L 96 Date Exam was Performed: 07/03/19 Time Exam was Performed: 06:38
[2019-07-03] MEDS ORDERED: Aluminum Hydroxide/Magnesium Hydroxide/Simethicone Susp 30 ML Cup PO ONE (00:14)
[2019-07-03] MEDS ORDERED: HYDROmorphone 1 MG/ML Syringe IVPUSH ONE (00:15)
[2019-07-03] MEDS ORDERED: Albuterol 0.083% 2.5 MG/3 ML Neb Soln NEB PRN (01:22)
[2019-07-03] MEDS ORDERED: LORazepam 2 MG/ML SDV IV PRN (01:22)
[2019-07-03] MEDS ORDERED: Acetaminophen/HYDROcodone 325-5 MG Tab PO PRN ×2 (01:22→11:56)
[2019-07-03] MEDS ORDERED: Ondansetron 4 MG Tab.DIS PO PRN (01:22)
[2019-07-03] MEDS ORDERED: Acetaminophen 325 MG Tab PO PRN (01:22)
[2019-07-03] MEDS ORDERED: HYDROmorphone 1 MG/ML Syringe IVPUSH PRN (01:25)
[2019-07-03] MEDS ORDERED: Sodium Chloride 0.9% 1,000 ML IV SCH (01:30)
[2019-07-03] MEDS ORDERED: Nitroglycerin 0.4 MG Tab.SL SL PRN ×2 (01:30→08:00)
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
[2019-07-03] MEDS: Thiamine 100 MG Tab PO SCH ×2 (02:47→09:49)
[2019-07-03] MEDS ORDERED: Pantoprazole 40 MG Vial IVPUSH SCH (03:00)
[2019-07-03] MEDS ORDERED: Losartan 25 MG Tab PO SCH (09:00)
[2019-07-03] MEDS ORDERED: Multivitamins with Iron/Calcium/Folic Acid/Minerals Tab PO SCH (09:00)
[2019-07-03] MEDS ORDERED: PHENobarbital 32.4 MG Tab PO SCH (09:00)
[2019-07-03] MEDS ORDERED: Metoprolol Succinate 25 MG Tab.ER PO SCH (09:00)
[2019-07-03] MEDS ORDERED: Folic Acid 1 MG Tab PO SCH (09:00)
[2019-07-03] MEDS ORDERED: Citalopram 10 MG Tab PO SCH (09:00)
[2019-07-03] MEDS ORDERED: Tamsulosin 0.4 MG Cap.ER PO SCH (09:00)
[2019-07-03] MEDS ORDERED: Phenytoin 100 MG Cap.ER PO SCH (09:00)
[2019-07-03 10:44] VITALS: BP 132/59; PULSE 65
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
--- NOTE | 2019-07-03 14:25 | PCM.DCSUM1 ---
Discharge Summary - Hospital Course Brief History: Mr. Degroot is a 69-year-old gentleman who was admitted to observation status through the emergency department with alcohol intoxication and weakness. - Discharge Data Discharge Date: 07/03/19 Discharge Disposition: DC/Tfer to SNF 03 Condition: Fair - Referral to Home Health Primary Care Physician: PCP None - Discharge Diagnosis/Problem(s) (1) Alcohol intoxication SNOMED Code(s): 44688209 ICD Code: F10.929 - ALCOHOL USE, UNSPECIFIED WITH INTOXICATION, UNSPECIFIED Status: Acute Priority: High Current Visit: Yes Qualifiers: Complication of substance-induced condition: with unspecified complication Qualified Code(s): F10.929 - Alcohol use, unspecified with intoxication, unspecified (2) Weakness SNOMED Code(s): 13376182 ICD Code: R53.1 - WEAKNESS Status: Acute Current Visit: No (3) Alcohol abuse SNOMED Code(s): 70202931 ICD Code: F10.10 - ALCOHOL ABUSE, UNCOMPLICATED Status: Chronic Current Visit: No (4) Seizure disorder SNOMED Code(s): 934285102 ICD Code: G40.909 - EPILEPSY, UNSP, NOT INTRACTABLE, WITHOUT STATUS EPILEPTICUS Status: Chronic Priority: Low Current Visit: No - Patient Summary/Data Consults: Consultations 07/03/19 08:53 OT Evaluation and Treatment [CONS] Routine Please Evaluate and Treat. OT Reason for Consult: asses cognitive status This query below is only for informational purposes and is not editable. Admission Diagnosis/Problem: Alcohol abuse with intoxication Hospital Course: Mr. Degroot is a 69-year-old male who was just discharged from the hospital, mainly, went home and started drinking cooking bryon and old spice aftershave and tonight has abdominal discomfort. He called EMS because he was rolling around on the kitchen floor complaining of pain. Is a very similar presentation to 5 days ago when his neighbors called because he was running around complaining of pain and banging his head on the table. His behavior becomes uncontrollable when he is intoxicated. His pills were spilled all over the apartment. On admission he was given IV fluids for hydration. On the morning after admission he had recovered from his intoxication and was alert and oriented with no evidence of alcohol or narcotic withdrawal. It is very evident that if he is discharged home he will resume alcohol use. Prior to this past month he had been at the intermediate and then in an assisted living facility and during that period of time did not use alcohol or abuse his narcotics. He has agreed to voluntary intermediate placement for ongoing management and care. He does note pain in his left lower anterior chest wall, likely a musculoskeletal injury related to his falls. Activity will be as tolerated and he will resume his usual diet. Follow-up with primary care will be as needed. - Patient Instructions Diet: Regular Diet as Tolerated Activity: As Tolerated - Discharge Plan *PRESCRIPTION DRUG MONITORING PROGRAM REVIEWED*: No *COPY OF PRESCRIPTION DRUG MONITORING REPORT IN PATIENT MONSE: No Home Medications: Home Meds PHENobarbitaL [Phenobarbital] 97.2 mg PO BID #60 tablet 09/16/16 [Rx] Phenytoin 200 mg PO BID #60 cap.er 09/16/16 [Rx] Citalopram [Citalopram HBr] 30 mg PO DAILY 10/22/16 [History] Apixaban [Eliquis] 5 mg PO BID 11/28/18 [History] Folic Acid 1 mg PO DAILY 11/28/18 [History] Losartan Potassium 25 mg PO DAILY 11/28/18 [History] Metoprolol Succinate [Toprol XL 50mg] 25 mg PO DAILY 11/28/18 [History] Multivitamin with Minerals [Multiple Vitamin] 1 tab PO DAILY 11/28/18 [History] Nitroglycerin 0.4 mg SL ASDIRECTED 11/28/18 [History] Tamsulosin HCl 0.4 mg PO DAILY 11/28/18 [History] Thiamine HCl [Vitamin B-1] 100 mg PO DAILY 11/28/18 [History] traZODone HCl [Trazodone HCl] 150 mg PO BEDTIME 11/28/18 [History] Acetaminophen [Tylenol] 650 mg PO Q4H PRN 12/01/18 [History] Acetaminophen/HYDROcodone [[place] 325-5 MG] 1 tab PO Q6H PRN 05/07/19 [History] Docusate Sodium [Colace] 100 mg PO DAILY 05/07/19 [History] Referrals: Jamel Castillo MD [Physician] - - Discharge Summary/Plan Comment DC Time >30 min.: No - Patient Data Vitals - Most Recent: Last Vital Signs Temp 98.1 F 07/03/19 10:43 Pulse 65 07/03/19 10:43 Resp 16 07/03/19 10:43 BP 132/59 L 07/03/19 10:43 Pulse Ox 98 07/03/19 10:43 Weight - Most Recent: 125 lb I&O - Last 24 hours: Intake & Output 07/02/19 07/03/19 07/03/19 22:59 06:59 14:59 Output Total 350 Balance -350 Lab Results - Last 24 hrs: Laboratory Results - last 24 hr 07/03/19 07/03/19 07/03/19 Range/Units 00:10 00:10 00:10 WBC 7.6 (4.5-11.0) K/uL RBC 3.69 L (4.30-5.90) M/uL Hgb 13.1 (12.0-15.0) g/dL Hct 37.3 L (40.0-54.0) % MCV 101 H (80-98) fL MCH 36 H (27-31) pg MCHC 35 (32-36) % Plt Count 203 (150-400) K/uL Neut % (Auto) 42 (36-66) % Lymph % (Auto) 45 H (24-44) % [place] % (Auto) 9 H (2-6) % Eos % (Auto) 4 (2-4) % Baso % (Auto) 1 (0-1) % Sodium 147 (140-148) mmol/L Potassium 4.5 (3.6-5.2) mmol/L Chloride 111 H (100-108) mmol/L Carbon Dioxide 29 (21-32) mmol/L Anion Gap 11.5 (5.0-14.0) mmol/L BUN 12 (7-18) mg/dL Creatinine 0.5 L (0.8-1.3) mg/dL Est Cr Clr Drug Dosing TNP Estimated GFR (MDRD) > 60 (>60) Glucose 105 (74-106) mg/dL Calcium 7.7 L (8.5-10.1) mg/dL Total Bilirubin 0.3 (0.2-1.0) mg/dL AST 84 H (15-37) U/L ALT 143 H (12-78) U/L Alkaline Phosphatase 126 H (46-116) U/L Total Protein 5.9 L (6.4-8.2) g/dL Albumin 3.3 L (3.4-5.0) g/dL Globulin 2.6 (2.3-3.5) g/dL Albumin/Globulin Ratio 1.3 (1.2-2.2) Acetaminophen 0.0 L (10.0-30.0) ug/mL Ethyl Alcohol 288 mg/dL Med Orders - Current: Current Medications Acetaminophen (Tylenol) 650 mg PO Q4H PRN PRN Reason: Pain (Mild 1-3)/fever Hydrocodone Bitart/Acetaminophen ([place] 325-5 Mg) 1 tab PO Q4H PRN PRN Reason: Pain (moderate 4-6) Last Admin: 07/03/19 11:26 Dose: 1 tab Hydrocodone Bitart/Acetaminophen ([place] 325-5 Mg) 1 tab PO Q6H PRN PRN Reason: Pain (moderate 4-6) Albuterol (Proventil Neb Soln) 2.5 mg NEB Q4H PRN PRN Reason: Shortness Of Breath/wheezing Citalopram Hydrobromide (Celexa) 30 mg PO DAILY [facility] Last Admin: 07/03/19 09:48 Dose: 30 mg Folic Acid (Folic Acid) 1 mg PO DAILY [facility] Last Admin: 07/03/19 09:48 Dose: 1 mg Losartan Potassium (Cozaar) 25 mg PO DAILY [facility] Last Admin: 07/03/19 09:48 Dose: 25 mg Metoprolol Succinate (Toprol Xl) 25 mg PO DAILY [facility] Last Admin: 07/03/19 09:48 Dose: 25 mg Multivitamins/Minerals (Thera M Plus) 1 tab PO DAILY [facility] Last Admin: 07/03/19 09:48 Dose: 1 tab Nitroglycerin (Nitrostat) 0.4 mg SL Q5M PRN PRN Reason: ANGINA Ondansetron HCl (Zofran Odt) 4 mg PO Q6H PRN PRN Reason: Nausea able to take PO [facility]op[facility] Phenobarbital (Phenobarbital) 97.2 mg PO BID [facility] Last Admin: 07/03/19 10:00 Dose: 97.2 mg Phenytoin Sodium (Phenytoin) 200 mg PO BID [facility] Last Admin: 07/03/19 09:48 Dose: 200 mg Tamsulosin HCl (Flomax) 0.4 mg PO DAILY [facility] Last Admin: 07/03/19 09:49 Dose: 0.4 mg Thiamine HCl (Vitamin B-1) 100 mg PO DAILY [facility] Last Admin: 07/03/19 09:49 Dose: 100 mg Trazodone HCl (Trazodone) 150 mg PO BEDTIME [facility] Discontinued Medications Al Hydroxide/Mg Hydroxide (Mag-Al Plus) 30 ml PO ONETIME ONE Stop: 07/03/19 00:15 Last Admin: 07/03/19 00:33 Dose: 30 ml Hydromorphone HCl (Dilaudid) 1 mg IVPUSH ONETIME ONE Stop: 07/03/19 00:16 Last Admin: 07/03/19 00:25 Dose: 1 mg Hydromorphone HCl (Dilaudid) 1 mg IVPUSH Q3H PRN PRN Reason: Pain Sodium Chloride (Normal Saline) 1,000 mls @ 125 mls/hr IV ASDIRECTED [facility] Lorazepam (Ativan) 1 mg IV Q6H PRN PRN Reason: Nausea/Vomiting Last Admin: 07/03/19 02:48 Dose: 1 mg Pantoprazole Sodium (Protonix Iv) 40 mg IVPUSH Q12H [facility] Last Admin: 07/03/19 02:47 Dose: 40 mg - Exam General: Reports: Alert, Oriented, Cooperative, No Acute Distress Lungs: Reports: Clear to Auscultation, Normal Respiratory Effort Cardiovascular: Reports: Regular Rate, Regular Rhythm, No Murmurs GI/Abdominal Exam: Soft, Non-Tender, No Organomegaly, No Distention
[2019-07-03] MEDS ORDERED: Pantoprazole 40 MG Tab.CR PO SCH (16:30)
[2019-07-03] MEDS ORDERED: traZODone 50 MG Tab PO SCH (21:00)
== END 2019-07-03 14:58 ==
LOC: JP.ED 23:56 → JP.MS 07-03 01:20
PROVIDERS: ADMIT Hospitalist; ATTEND Hospitalist
DX: F10.129 Alcohol abuse with intoxication, unspecified (principal); F11.23 Opioid dependence with withdrawal; G89.29 Other chronic pain; M54.9 Dorsalgia, unspecified; G40.909 Epilepsy, unspecified, not intractable, without status epilepticus; I11.0 Hypertensive heart disease with heart failure; I50.9 Heart failure, unspecified; I25.10 Atherosclerotic heart disease of native coronary artery without angina pectoris; J44.9 Chronic obstructive pulmonary disease, unspecified; K21.9 Gastro-esophageal reflux disease without esophagitis; F32.9 Major depressive disorder, single episode, unspecified; F41.9 Anxiety disorder, unspecified; Z79.899 Other long term (current) drug therapy; Z88.0 Allergy status to penicillin; Z86.718 Personal history of other venous thrombosis and embolism
CPT/HCPCS: 36415; 80053; 85025; 97165; A9270; C9113; G0480; J1170; J2060; 99284

== ENCOUNTER 2019-07-18 09:04 | Emergency (ER) | payer MEDICARE, MEDICAID ==
[2019-07-18 09:20] VITALS: BP 130/60; PULSE 85
[2019-07-18] MEDS ORDERED: Thiamine 100 MG Tab PO ONE (09:29)
[2019-07-18] MEDS ORDERED: Acetaminophen 325 MG Tab PO ONE (09:40)
--- NOTE | 2019-07-18 09:45 | EDM.PDOC ---
ED HPI GENERAL MEDICAL PROBLEM - General Chief Complaint: General Stated Complaint: DIZZY Time Seen by Provider: 07/18/19 09:25 Source of Information: Reports: Patient, EMS, Old Records, RN History Limitations: Reports: No Limitations - History of Present Illness INITIAL COMMENTS - FREE TEXT/NARRATIVE: 69 yo male with a pHx of alcohol abuse was brought in by EMS this morning after he was noted by a neighbor to go into his own laundry room and not come out for a long time. He was found lying on the ground with a bump to the back of his head. He has a seizure hx, but Dereck does not think he had one. He falls often and has a walker that he sometimes uses. EMS transported with Dereck alert and vitally stable. Dereck lives alone. Says he drank last night, but not today. He says he has been taking his seizure meds as prescribed. Says he injured some ribs in a recent fall, not today. Onset: Today Onset Date: 07/18/19 Duration: Hour(s): (not clear how long he was down?), Improving Location: Reports: Head (bump), Chest (old injury), Back (chronic) Quality: Reports: Dull Severity: Mild Improves with: Reports: None Worsens with: Reports: None Context: Reports: Trauma (frequent falls) Associated Symptoms: Reports: No Other Symptoms, Syncope (possibly). Denies: Confusion, Diaphoresis, Fever/Chills, Headaches, Nausea/Vomiting, Seizure, Shortness of Breath Treatments LOG BUYER: Reports: Other (see below) (none) Lower Back Pain Score (Numeric/FACES): 7 - Related Data Allergies Allergy/AdvReac Type Severity Reaction Status Date / Time Penicillins Allergy Severe Anaphylactic Verified 07/18/19 09:05 Shock Home Meds: Home Meds PHENobarbitaL [Phenobarbital] 97.2 mg PO BID #60 tablet 09/16/16 [Rx] Phenytoin 200 mg PO BID #60 cap.er 09/16/16 [Rx] Citalopram [Citalopram HBr] 30 mg PO DAILY 10/22/16 [History] Apixaban [Eliquis] 5 mg PO BID 11/28/18 [History] Folic Acid 1 mg PO DAILY 11/28/18 [History] Losartan Potassium 25 mg PO DAILY 11/28/18 [History] Metoprolol Succinate [Toprol XL 50mg] 25 mg PO DAILY 11/28/18 [History] Multivitamin with Minerals [Multiple Vitamin] 1 tab PO DAILY 11/28/18 [History] Nitroglycerin 0.4 mg SL ASDIRECTED 11/28/18 [History] Tamsulosin HCl 0.4 mg PO DAILY 11/28/18 [History] Thiamine HCl [Vitamin B-1] 100 mg PO DAILY 11/28/18 [History] traZODone HCl [Trazodone HCl] 150 mg PO BEDTIME 11/28/18 [History] Acetaminophen [Tylenol] 650 mg PO Q4H PRN 12/01/18 [History] Acetaminophen/HYDROcodone [[place] 325-5 MG] 1 tab PO Q6H PRN 05/07/19 [History] Docusate Sodium [Colace] 100 mg PO DAILY 05/07/19 [History] Past Medical History HEENT History: Reports: Cataract, Impaired Vision, Macular Degeneration Cardiovascular History: Reports: Blood Clots/VTE/DVT, CAD, Heart Failure, Hypertension, SOB on Exertion, Syncope Respiratory History: Reports: COPD, PE, SOB, Other (See Below) Other Respiratory History: calcified pleural plaque on chest x-ray. Mesothelioma of both lungs Gastrointestinal History: Reports: Cholelithiasis, Chronic Constipation, GERD Genitourinary History: Reports: BPH, Renal Disease, Other (See Below) Other Genitourinary History: recent kidney function issue but undiagnoised at this time Musculoskeletal History: Reports: Back Pain, Chronic, Fracture, Osteoporosis, Other (See Below) Other Musculoskeletal History: has metal in left hand from [employer] [place];. shattered pelvis; multiple compression fractures Neurological History: Reports: Neuropathy, Peripheral, Seizure Psychiatric History: Reports: Addiction, Depression, Eating Disorders, Suicide Attempt Other Psychiatric History: Malnutrition due to inability to swallow. Insomnia Endocrine/Metabolic History: Reports: Other (See Below) Other Endocrine/Metabolic History: recent elevated blood sugars, undiagnoised. thyroid cancer, failed to go to surgery on 09/01/16 Hematologic History: Reports: Anticoagulation Therapy Oncologic (Cancer) History: Reports: Lung, Thyroid Other Oncologic History: s/s of mesotheleoma - Infectious Disease History Infectious Disease History: Reports: Chicken Pox, Measles, Mumps - Past Surgical History Head Surgeries/Procedures: Reports: None HEENT Surgical History: Reports: Adenoidectomy, Cataract Surgery, Tonsillectomy Cardiovascular Surgical History: Reports: None Respiratory Surgical History: Reports: None GI Surgical History: Reports: Cholecystectomy, EGD, Esophageal Dilatation Male Surgical History: Reports: None Endocrine Surgical History: Reports: Thyroid Biopsy Neurological Surgical History: Reports: Spinal Fusion Musculoskeletal Surgical History: Reports: None Oncologic Surgical History: Reports: None Social & Family History - Family History Family Medical History: Noncontributory - Tobacco Use Smoking Status *Q: Current Every Day Smoker Years of Tobacco use: 50 Packs/Tins Daily: 1 Used Tobacco, but Quit: No Second Hand Smoke Exposure: No - Caffeine Use Caffeine Use: Reports: Coffee, Energy Drinks, Tea Caffeine Use Comment: unknown, patient has difficulty answering questions. - Alcohol Use Days Per Week of Alcohol Use: 5 Number of Drinks Per Day: 2 Total Drinks Per Week: 10 - Recreational Drug Use Recreational Drug Use: No - Living Situation & Occupation Living situation: Reports: , with Family Occupation: Disabled ED ROS GENERAL - Review of Systems Review Of Systems: See Below Constitutional: Reports: Malaise HEENT: Reports: No Symptoms Respiratory: Reports: No Symptoms Cardiovascular: Reports: Syncope (possibly) Endocrine: Reports: No Symptoms GI/Abdominal: Reports: No Symptoms : Reports: No Symptoms Musculoskeletal: Reports: Back Pain (chronic) Skin: Reports: Wound (abrasion R hand from today's fall) Neurological: Reports: Seizure (last about 3 weeks ago), Difficulty Walking ( chronic, uses a walker at times). Denies: Confusion, Dizziness, Headache, Trouble Speaking, Change in Speech Psychiatric: Reports: No Symptoms ED EXAM, GENERAL - Physical Exam Exam: See Below Exam Limited By: No Limitations General Appearance: Alert, WD/WN, No Apparent Distress Eye Exam: Bilateral Eye: Normal Inspection Ears: Normal External Exam, Normal Canal, Hearing Grossly Normal, Normal TMs Ear Exam: Bilateral Ear: Auricle Normal, Canal Normal, TM normal Nose: Normal Inspection, No Blood Throat/Mouth: Normal Inspection, Normal Lips, Normal Oropharynx, Normal Voice, No Airway Compromise Head: Atraumatic, Normocephalic Neck: Normal Inspection Respiratory/Chest: No Respiratory Distress, Lungs Clear, Normal Breath Sounds, No Accessory Muscle Use Cardiovascular: Regular Rate, Rhythm, No Edema, Other (bilat rib tenderness without crepitus.) GI/Abdominal: Normal Bowel Sounds, Soft, Non-Tender, No Distention Back Exam: Normal Inspection. No: CVA Tenderness (R), CVA Tenderness (L) Extremities: Normal Inspection, Normal Range of Motion, Non-Tender, No Pedal Edema Neurological: Alert, Oriented, CN II-XII Intact, Normal Cognition, No Motor/ Sensory Deficits Psychiatric: Normal Affect, Normal Mood Skin Exam: Warm, Dry, Normal Color, No Rash, Wound/Incision (small, deeper abrasion R hand over index MC joint) Course - Vital Signs Text/Narrative:: Orthostats normal. Last Recorded V/S: Last Vital Signs Temp 36.2 C 07/18/19 09:20 Pulse 85 07/18/19 09:20 Resp 16 07/18/19 09:20 BP 130/60 07/18/19 09:20 Pulse Ox 96 07/18/19 09:20 Orthostatic Blood Pressure [ 116/53 Standing] Orthostatic Blood Pressure [ 129/59 Sitting] Orthostatic Blood Pressure [ 128/60 Supine] - Orders/Labs/Meds Orders: Active Orders 24 hr Category Date Time Status Cardiac Monitoring [RC] .As Directed Care 07/18/19 09:46 Active Orthostatic Vital Signs [RC] ASDIRECTED Care 07/18/19 09:40 Active Labs: Laboratory Tests 07/18/19 07/18/19 07/18/19 Range/Units 10:00 10:00 10:13 WBC 7.8 (4.5-11.0) K/uL RBC 3.90 L (4.30-5.90) M/uL Hgb 13.8 (12.0-15.0) g/dL Hct 40.6 (40.0-54.0) % MCV 104 H (80-98) fL MCH 35 H (27-31) pg MCHC 34 (32-36) % Plt Count 237 (150-400) K/uL Sodium 149 H (140-148) mmol/L Potassium 3.6 (3.6-5.2) mmol/L Chloride 109 H (100-108) mmol/L Carbon Dioxide 30 (21-32) mmol/L Anion Gap 13.6 (5.0-14.0) mmol/L BUN 17 (7-18) mg/dL Creatinine 0.6 L (0.8-1.3) mg/dL Est Cr Clr Drug Dosing 82.00 mL/min Estimated GFR (MDRD) > 60 (>60) Glucose 113 H (74-106) mg/dL Calcium 7.8 L (8.5-10.1) mg/dL Urine Color [place] A (YELLOW) Urine Appearance Slightly cloudy A (CLEAR) Urine pH 6.0 (5.0-8.0) Ur Specific [place] >= 1.030 (1.008-1.030) Urine Protein 30 H (NEGATIVE) mg/dL Urine Glucose (UA) Negative (NEGATIVE) mg/dL Urine Ketones Negative (NEGATIVE) mg/dL Urine Occult Blood Small H (NEGATIVE) Urine Nitrite Negative (NEGATIVE) Urine Bilirubin Negative (NEGATIVE) Urine Urobilinogen 1.0 (0.2-1.0) EU/dL Ur Leukocyte Esterase Small H (NEGATIVE) Urine RBC 10-20 H (0-5) Urine WBC 10-20 H (0-5) Ur Epithelial Cells Rare Amorphous Sediment Few Urine Bacteria Many Urine Mucus Not seen Meds: Medications Discontinued Medications Generic Name Dose Route Start Last Admin Trade Name [place] PRN Reason Stop Dose Admin Acetaminophen 650 mg 07/18/19 09:40 07/18/19 09:48 Tylenol PO 07/18/19 09:41 650 mg NOW ONE Administration Thiamine HCl 100 mg 07/18/19 09:29 07/18/19 09:49 Vitamin B-1 PO 07/18/19 09:30 100 mg ONETIME ONE Administration Departure - Departure Time of Disposition: 11:00 Disposition: Home, Self-Care 01 Condition: Fair Clinical Impression: Mild dehydration Syncope Qualifiers: Syncope type: unspecified Qualified Code(s): R55 - Syncope and collapse - Discharge Information *PRESCRIPTION DRUG MONITORING PROGRAM REVIEWED*: No *COPY OF PRESCRIPTION DRUG MONITORING REPORT IN PATIENT MONSE: No Referrals: PCP,None [Primary Care Provider] - Forms: ED Department Discharge Additional Instructions: Drink enough water so that your urine is light yellow in color. Use your walker to reduce your risk of falling. Follow up with your doctor jennifer. Return as needed. Avoid alcohol. Sepsis Event Note - Evaluation Sepsis Screening Result: No Definite Risk - Focused Exam Vital Signs: Vital Signs Temp Pulse Resp BP Pulse Ox 07/18/19 09:20 36.2 C 85 16 130/60 96 07/18/19 09:18 36.2 C 85 16 130/60 96 Date Exam was Performed: 07/18/19 Time Exam was Performed: 10:33 - My Orders Last 24 Hours: My Active Orders 07/18/19 09:40 Orthostatic Vital Signs [RC] ASDIRECTED 07/18/19 09:46 Cardiac Monitoring [RC] .As Directed - Assessment/Plan Last 24 Hours: My Active Orders 07/18/19 09:40 Orthostatic Vital Signs [RC] ASDIRECTED 07/18/19 09:46 Cardiac Monitoring [RC] .As Directed
== END 2019-07-18 11:03 | disposition home or self-care (01) ==
LOC: JP.ED 09:04
DX: E86.0 Dehydration (principal); R55 Syncope and collapse
CPT/HCPCS: 36415; 80048; 81001; 85027; 99284; A9270

== ENCOUNTER 2019-07-18 12:40 | Emergency (ER) | payer MEDICARE, MEDICAID ==
[2019-07-18 12:47] VITALS: BP 135/60; PULSE 70
--- NOTE | 2019-07-18 12:52 | EDM.PDOC ---
<Nathaniel Lange - Last Filed: 07/18/19 14:51> ED HPI GENERAL MEDICAL PROBLEM - General Chief Complaint: Drug or Alcohol Abuse Stated Complaint: DRINKING Time Seen by Provider: 07/18/19 12:49 Source of Information: Reports: Patient, EMS, Old Records, RN History Limitations: Reports: No Limitations - History of Present Illness INITIAL COMMENTS - FREE TEXT/NARRATIVE: 69 yo male was here this morning after a fall with ? syncope at this apartment earlier today. He was not orthostatic, labs were normal and he seemed sober. He wanted to go home so was discharged. Not long after he arrived home he went outside to smoke and fell. Neighbors tried to help him up and he pushed them away so EMS was called. They noted that he was very unsteady on his feet almost as if intoxicated. He was fully alert and oriented when here this morning, is now somewhat somnolent. 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 TECHNICIAN: Reports: Other (see below) (no meds) - Related Data Allergies Allergy/AdvReac Type Severity Reaction Status Date / Time Penicillins Allergy Severe Anaphylactic Verified 07/18/19 12:44 Shock Home Meds: Home Meds PHENobarbitaL [Phenobarbital] 97.2 mg PO BID #60 tablet 09/16/16 [Rx] Phenytoin 200 mg PO BID #60 cap.er 09/16/16 [Rx] Citalopram [Citalopram HBr] 30 mg PO DAILY 10/22/16 [History] Apixaban [Eliquis] 5 mg PO BID 11/28/18 [History] Folic Acid 1 mg PO DAILY 11/28/18 [History] Losartan Potassium 25 mg PO DAILY 11/28/18 [History] Metoprolol Succinate [Toprol XL 50mg] 25 mg PO DAILY 11/28/18 [History] Multivitamin with Minerals [Multiple Vitamin] 1 tab PO DAILY 11/28/18 [History] Nitroglycerin 0.4 mg SL ASDIRECTED 11/28/18 [History] Tamsulosin HCl 0.4 mg PO DAILY 11/28/18 [History] Thiamine HCl [Vitamin B-1] 100 mg PO DAILY 11/28/18 [History] traZODone HCl [Trazodone HCl] 150 mg PO BEDTIME 11/28/18 [History] Acetaminophen [Tylenol] 650 mg PO Q4H PRN 12/01/18 [History] Acetaminophen/HYDROcodone [[place] 325-5 MG] 1 tab PO Q6H PRN 05/07/19 [History] Docusate Sodium [Colace] 100 mg PO DAILY 05/07/19 [History] Past Medical History HEENT History: Reports: Cataract, Impaired Vision, Macular Degeneration Cardiovascular History: Reports: Blood Clots/VTE/DVT, CAD, Heart Failure, Hypertension, SOB on Exertion, Syncope Respiratory History: Reports: COPD, PE, SOB, Other (See Below) Other Respiratory History: calcified pleural plaque on chest x-ray. Mesothelioma of both lungs Gastrointestinal History: Reports: Cholelithiasis, Chronic Constipation, GERD Genitourinary History: Reports: BPH, Renal Disease, Other (See Below) Other Genitourinary History: recent kidney function issue but undiagnoised at this time Musculoskeletal History: Reports: Back Pain, Chronic, Fracture, Osteoporosis, Other (See Below) Other Musculoskeletal History: has metal in left hand from [employer] during [place];. shattered pelvis; multiple compression fractures Neurological History: Reports: Neuropathy, Peripheral, Seizure Psychiatric History: Reports: Addiction, Depression, Eating Disorders, Suicide Attempt Other Psychiatric History: Malnutrition due to inability to swallow. Insomnia Endocrine/Metabolic History: Reports: Other (See Below) Other Endocrine/Metabolic History: recent elevated blood sugars, undiagnoised. thyroid cancer, failed to go to surgery on 09/01/16 Hematologic History: Reports: Anticoagulation Therapy Oncologic (Cancer) History: Reports: Lung, Thyroid Other Oncologic History: s/s of mesotheleoma - Infectious Disease History Infectious Disease History: Reports: Chicken Pox, Measles, Mumps - Past Surgical History Head Surgeries/Procedures: Reports: None HEENT Surgical History: Reports: Adenoidectomy, Cataract Surgery, Tonsillectomy Cardiovascular Surgical History: Reports: None Respiratory Surgical History: Reports: None GI Surgical History: Reports: Cholecystectomy, EGD, Esophageal Dilatation Male Surgical History: Reports: None Endocrine Surgical History: Reports: Thyroid Biopsy Neurological Surgical History: Reports: Spinal Fusion Musculoskeletal Surgical History: Reports: None Oncologic Surgical History: Reports: None Social & Family History - Family History Family Medical History: Noncontributory - Caffeine Use Caffeine Use: Reports: Coffee, Energy Drinks, Tea Caffeine Use Comment: unknown, patient has difficulty answering questions. - Living Situation & Occupation Living situation: Reports: , with Family Occupation: Disabled ED ROS GENERAL - Review of Systems Review Of Systems: See Below Constitutional: Reports: No Symptoms HEENT: Reports: No Symptoms Respiratory: Reports: No Symptoms Cardiovascular: Reports: No Symptoms GI/Abdominal: Reports: No Symptoms : Reports: No Symptoms Musculoskeletal: Reports: Back Pain (chronic) Skin: Reports: No Symptoms Neurological: Reports: Difficulty Walking, Gait Disturbance ED EXAM, GENERAL - Physical Exam Exam: See Below Exam Limited By: Other (somnolent) General Appearance: WD/WN, No Apparent Distress, Lethargic, Other (speech slurred) Eye Exam: Bilateral Eye: Normal Inspection Ears: Normal External Exam, Normal Canal, Hearing Grossly Normal, Normal TMs Ear Exam: Bilateral Ear: Auricle Normal, Canal Normal Nose: Normal Inspection, No Blood Throat/Mouth: Normal Inspection, Normal Lips, Normal Oropharynx, Normal Voice, No Airway Compromise Head: Atraumatic, Normocephalic Neck: Normal Inspection Respiratory/Chest: No Respiratory Distress, Lungs Clear, Normal Breath Sounds, No Accessory Muscle Use Cardiovascular: Regular Rate, Rhythm, No Edema GI/Abdominal: Normal Bowel Sounds, Soft, Non-Tender, No Distention Back Exam: Normal Inspection. No: CVA Tenderness (R), CVA Tenderness (L) Extremities: Normal Inspection, Normal Range of Motion, Non-Tender, No Pedal Edema Neurological: CN II-XII Intact, No Motor/Sensory Deficits, Other (sluggish) Psychiatric: Depressed Mood, Flat Affect Skin Exam: Warm, Dry, Intact, Normal Color, No Rash Course - Vital Signs Text/Narrative:: got lunch here. Has no one to come and get him. Not safe to dicharge until sober. Was offered [facility], declined. Last Recorded V/S: Last Vital Signs Temp 96.4 F 07/18/19 12:58 Pulse 70 07/18/19 12:58 Resp 20 07/18/19 12:58 BP 135/60 07/18/19 12:58 Pulse Ox 100 07/18/19 12:58 - Orders/Labs/Meds Labs: Laboratory Tests 07/18/19 07/18/19 Range/Units 12:55 17:30 Ethyl Alcohol 326 250 mg/dL Meds: Medications Discontinued Medications Generic Name Dose Route Start Last Admin Trade Name [place] PRN Reason Stop Dose Admin Acetaminophen 650 mg 07/18/19 13:30 07/18/19 13:45 Tylenol PO 07/18/19 13:31 650 mg NOW ONE Administration Ketorolac Tromethamine 30 mg 07/18/19 13:25 07/18/19 13:35 Toradol IM 07/18/19 13:26 30 mg ONETIME ONE Administration Lorazepam Confirm 07/18/19 19:01 Ativan Administered 07/18/19 19:02 Dose 1 mg .ROUTE .STK-MED ONE Lorazepam 1 mg 07/18/19 19:03 07/18/19 19:05 Ativan PO 07/18/19 19:04 1 mg ONETIME ONE Administration - Radiology Interpretation Free Text/Narrative:: Head CT scan-IMPRESSION: 1. No acute intracranial disease. 2. Stable chronic intracranial findings as described above. 3. Mild sinusitis stable. Please note that all CT scans at this facility use dose modulation, iterative reconstruction, and/or weight-based dosing when appropriate to reduce radiation dose to as low as reasonably achievable. Dictated by Taiwo Hopper MD @ Jul 18 2019 1:31PM (Electronic Signature) CT Results Date: 07/18/19 - Re-Assessments/Exams Free Text/Narrative Re-Assessment/Exam: 07/18/19 13:54 Apparently went home and immediately started drinking heavily. Again, wants to go home. Too intoxicated. Will have to stay until sober. Concerned if we discharge him later the same thing will recur. Departure - Departure Disposition: Against Medical Advice 07 Clinical Impression: Alcohol abuse Acute alcohol intoxication Qualifiers: Complication of substance-induced condition: with unspecified complication Qualified Code(s): F10.929 - Alcohol use, unspecified with intoxication, unspecified - Discharge Information Referrals: PCP,None [Primary Care Provider] - Forms: ED Department Discharge Sepsis Event Note - Focused Exam Vital Signs: Vital Signs Temp Pulse Resp BP Pulse Ox 07/18/19 12:58 96.4 F 70 20 135/60 100 07/18/19 12:45 96.4 F 70 20 135/60 100 Date Exam was Performed: 07/18/19 Time Exam was Performed: 14:51 <OfficerTj - Last Filed: 07/18/19 19:41> Course - Re-Assessments/Exams Free Text/Narrative Re-Assessment/Exam: Took over care from Dr. Lange at 1900, patient's was unable to contact anybody for ride home he remains to be intoxicated but is ambulating significantly better than earlier this morning asked him multiple times to stay and continue to sober up he declined we did call and discussed case with administration felt he did not meet criteria for 72-hour hold. He elected to sign out AMA 07/18/19 19:39 Departure - Departure Time of Disposition: 19:41 Condition: Poor Sepsis Event Note - Focused Exam Date Exam was Performed: 07/18/19 Time Exam was Performed: 19:39
[2019-07-18] MEDS ORDERED: Ketorolac 30 MG/ML SDV IM ONE (13:25)
[2019-07-18] MEDS ORDERED: Acetaminophen 325 MG Tab PO ONE (13:30)
--- NOTE | 2019-07-18 13:34 | CRLCT ---
INDICATION: Frequent falls. Unsteady on feet. TECHNIQUE: CT head without IV contrast. COMPARISON: CT head 06/28/2019. FINDINGS: No intracranial hemorrhage, edema, or mass-effect. Small amount of fluid and mucosal thickening in the frontal greater than ethmoidal sinuses. Minimal mucosal thickening in the sphenoid sinuses. Findings consistent with sinusitis which is stable. Mild cerebral and cerebellar atrophy. Tiny old lacunar infarct in the left cerebellum stable. Mild small vessel ischemic disease stable. Right frontal scalp hematoma and contusion has resolved. Remainder negative. IMPRESSION: 1. No acute intracranial disease. 2. Stable chronic intracranial findings as described above. 3. Mild sinusitis stable. Please note that all CT scans at this facility use dose modulation, iterative reconstruction, and/or weight-based dosing when appropriate to reduce radiation dose to as low as reasonably achievable. Dictated by Taiwo Hopper MD @ Jul 18 2019 1:31PM Signed by Dr. Taiwo Hopper @ Jul 18 2019 1:32PM
[2019-07-18] MEDS ORDERED: LORazepam 1 MG Tab ONE (19:01)
[2019-07-18] MEDS ORDERED: LORazepam 1 MG Tab PO ONE (19:03)
== END 2019-07-18 19:47 | disposition left against medical advice (07) ==
LOC: JP.ED 12:40
DX: F10.129 Alcohol abuse with intoxication, unspecified (principal); I25.10 Atherosclerotic heart disease of native coronary artery without angina pectoris; I11.0 Hypertensive heart disease with heart failure; I50.9 Heart failure, unspecified; J44.9 Chronic obstructive pulmonary disease, unspecified; R56.9 Unspecified convulsions; N40.0 Benign prostatic hyperplasia without lower urinary tract symptoms; F32.9 Major depressive disorder, single episode, unspecified; Y90.8 Blood alcohol level of 240 mg/100 ml or more; Z85.850 Personal history of malignant neoplasm of thyroid; Z86.711 Personal history of pulmonary embolism; Z88.0 Allergy status to penicillin; Z79.01 Long term (current) use of anticoagulants; Z79.899 Other long term (current) drug therapy; Z86.718 Personal history of other venous thrombosis and embolism; S60.511A Abrasion of right hand, initial encounter; R55 Syncope and collapse; E86.0 Dehydration; F17.210 Nicotine dependence, cigarettes, uncomplicated; Z98.49 Cataract extraction status, unspecified eye; Z90.49 Acquired absence of other specified parts of digestive tract; Z98.1 Arthrodesis status; W19.XXXA Unspecified fall, initial encounter
CPT/HCPCS: 36415; 70450; 80048; 81001; 85027; 96372; 99283; 99284; 99285; A9270; G0480; J1885

== ENCOUNTER 2019-07-19 15:25 | Inpatient (IN) | payer MEDICARE, MEDICAID ==
[2019-07-19] MEDS ORDERED: Sodium Chloride 0.9% 10 ML Syringe FLUSH PRN ×2 (15:31→17:46)
[2019-07-19] MEDS ORDERED: PHENobarbital 32.4 MG Tab PO STA ×2 (15:33→15:34)
[2019-07-19] MEDS ORDERED: MVI, Adult with Vitamin K 10 ML, Thiamine 100 MG, Folic Acid 1 MG, Magnesium Sulfate 3 ... IV ONE ×5 (15:45)
[2019-07-19] MEDS ORDERED: MVI, Adult with Vitamin K 10 ML, Thiamine 100 MG, Folic Acid 1 MG, Magnesium Sulfate 3 ... IV SCH ×5 (15:45)
--- NOTE | 2019-07-19 16:08 | EDM.PDOC ---
ED HPI GENERAL MEDICAL PROBLEM - General Chief Complaint: Drug or Alcohol Abuse Stated Complaint: SEIZURE VIA [facility] Time Seen by Provider: 07/19/19 15:45 Source of Information: Reports: Patient, EMS, Old Records, Other (neighbors) History Limitations: Reports: No Limitations - History of Present Illness INITIAL COMMENTS - FREE TEXT/NARRATIVE: 69 yo male with a known seizure disorder was brought in by EMS after reportedly having 2 seizures since last night. He was here yesterday twice for alcohol related issues. He admits to not remembering the last time he took his seizure meds. Up until a month ago he was in a custodial setting in [place], [place] and did fairly well. Now that he is living in an apartment alone in [place] he is failing. He is drinking heavily, non-compliant with his meds, falling a lot, and the neighbors say there is no food in his apartment. The neighbors don't know how he is getting the alcohol or who is providing it? His neighbors found him after a seizure today lying partly in the heart and called EMS. 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 MANAGER: Reports: Other (see below) (none) - Related Data Allergies Allergy/AdvReac Type Severity Reaction Status Date / Time Penicillins Allergy Severe Anaphylactic Verified 07/18/19 12:44 Shock Home Meds: Home Meds PHENobarbitaL [Phenobarbital] 97.2 mg PO BID #60 tablet 09/16/16 [Rx] Phenytoin 200 mg PO BID #60 cap.er 09/16/16 [Rx] Citalopram [Citalopram HBr] 30 mg PO DAILY 10/22/16 [History] Apixaban [Eliquis] 5 mg PO BID 11/28/18 [History] Folic Acid 1 mg PO DAILY 11/28/18 [History] Losartan Potassium 25 mg PO DAILY 11/28/18 [History] Metoprolol Succinate [Toprol XL 50mg] 25 mg PO DAILY 11/28/18 [History] Multivitamin with Minerals [Multiple Vitamin] 1 tab PO DAILY 11/28/18 [History] Nitroglycerin 0.4 mg SL ASDIRECTED 11/28/18 [History] Tamsulosin HCl 0.4 mg PO DAILY 11/28/18 [History] Thiamine HCl [Vitamin B-1] 100 mg PO DAILY 11/28/18 [History] traZODone HCl [Trazodone HCl] 150 mg PO BEDTIME 11/28/18 [History] Acetaminophen [Tylenol] 650 mg PO Q4H PRN 12/01/18 [History] Acetaminophen/HYDROcodone [[place] 325-5 MG] 1 tab PO Q6H PRN 05/07/19 [History] Docusate Sodium [Colace] 100 mg PO DAILY 05/07/19 [History] Past Medical History HEENT History: Reports: Cataract, Impaired Vision, Macular Degeneration Cardiovascular History: Reports: Blood Clots/VTE/DVT, CAD, Heart Failure, Hypertension, SOB on Exertion, Syncope Respiratory History: Reports: COPD, PE, SOB, Other (See Below) Other Respiratory History: calcified pleural plaque on chest x-ray. Mesothelioma of both lungs Gastrointestinal History: Reports: Cholelithiasis, Chronic Constipation, GERD Genitourinary History: Reports: BPH, Renal Disease, Other (See Below) Other Genitourinary History: recent kidney function issue but undiagnoised at this time Musculoskeletal History: Reports: Back Pain, Chronic, Fracture, Osteoporosis, Other (See Below) Other Musculoskeletal History: has metal in left hand from [employer] during [place] war;. shattered pelvis; multiple compression fractures Neurological History: Reports: Neuropathy, Peripheral, Seizure Psychiatric History: Reports: Addiction, Depression, Eating Disorders, Suicide Attempt Other Psychiatric History: Malnutrition due to inability to swallow. Insomnia Endocrine/Metabolic History: Reports: Other (See Below) Other Endocrine/Metabolic History: recent elevated blood sugars, undiagnoised. thyroid cancer, failed to go to surgery on 09/01/16 Hematologic History: Reports: Anticoagulation Therapy Oncologic (Cancer) History: Reports: Lung, Thyroid Other Oncologic History: s/s of mesotheleoma - Infectious Disease History Infectious Disease History: Reports: Chicken Pox, Measles, Mumps - Past Surgical History Head Surgeries/Procedures: Reports: None HEENT Surgical History: Reports: Adenoidectomy, Cataract Surgery, Tonsillectomy Cardiovascular Surgical History: Reports: None Respiratory Surgical History: Reports: None GI Surgical History: Reports: Cholecystectomy, EGD, Esophageal Dilatation Male Surgical History: Reports: None Endocrine Surgical History: Reports: Thyroid Biopsy Neurological Surgical History: Reports: Spinal Fusion Musculoskeletal Surgical History: Reports: None Oncologic Surgical History: Reports: None Dermatological Surgical History: Reports: None Social & Family History - Family History Family Medical History: Noncontributory - Tobacco Use Smoking Status *Q: Heavy Tobacco Smoker Years of Tobacco use: 50 Packs/Tins Daily: 1 - Caffeine Use Caffeine Use: Reports: Coffee Caffeine Use Comment: unknown, patient has difficulty answering questions. - Recreational Drug Use Recreational Drug Use: No - Living Situation & Occupation Living situation: Reports: , with Family Occupation: Disabled ED ROS GENERAL - Review of Systems Review Of Systems: See Below Constitutional: Reports: Malaise HEENT: Reports: No Symptoms Respiratory: Reports: No Symptoms Cardiovascular: Reports: No Symptoms Endocrine: Reports: No Symptoms GI/Abdominal: Reports: No Symptoms : Reports: No Symptoms Musculoskeletal: Reports: Back Pain (chronic) Skin: Reports: No Symptoms Neurological: Reports: Seizure (self-limited x 2 reportedly since last night) Psychiatric: Reports: No Symptoms - Physical Exam Exam: See Below Exam Limited By: No Limitations General Appearance: Alert, No Apparent Distress, Thin Eye Exam: Bilateral Eye: Normal Inspection Ears: Normal External Exam, Normal Canal, Hearing Grossly Normal Nose: Normal Inspection, No Blood Throat/Mouth: Normal Inspection, Normal Lips, Normal Oropharynx, Normal Voice, No Airway Compromise Head Exam: Atraumatic, Normocephalic Neck: Normal Inspection Respiratory/Chest: No Respiratory Distress, Lungs Clear, Normal Breath Sounds, No Accessory Muscle Use Cardiovascular: Regular Rate, Rhythm, No Edema GI/Abdominal: Normal Bowel Sounds, Soft, Non-Tender Neuro Exam (Abbreviated): Alert, Oriented, CN II-XII Intact, Normal Cognition, No Motor/Sensory Deficits Back Exam: Normal Inspection Extremities: Normal Inspection, Normal Range of Motion, Non-Tender, No Pedal Edema Psychiatric: Normal Affect, Normal Mood Skin Exam: Warm, Dry, Intact, Normal Color, No Rash Course - Vital Signs Last Recorded V/S: Last Vital Signs Temp 36.7 C 07/19/19 20:00 Pulse 100 07/19/19 20:00 Resp 15 07/19/19 20:00 BP 136/93 H 07/19/19 20:00 Pulse Ox 99 01/26/20 20:00 - Orders/Labs/Meds Orders: Medication Orders Acetaminophen (Tylenol) 650 mg PO Q4H PRN PRN Reason: Pain (Mild 1-3)/fever Hydrocodone Bitart/Acetaminophen ([place] 325-5 Mg) 1 tab PO Q4H PRN PRN Reason: Pain (moderate 4-6) Last Admin: 07/19/19 19:29 Dose: 1 tab Albuterol (Proventil Neb Soln) 2.5 mg NEB Q4H PRN PRN Reason: Shortness Of Breath/wheezing Apixaban (Eliquis) 5 mg PO BID [facility] Last Admin: 07/19/19 20:06 Dose: 5 mg Citalopram Hydrobromide (Celexa) 30 mg PO DAILY [facility] Docusate Sodium (Colace) 100 mg PO DAILY [facility] Folic Acid (Folic Acid) 1 mg PO DAILY [facility] Gabapentin (Neurontin) 400 mg PO Q8H [facility] Stop: 07/23/19 09:47 Last Admin: 07/19/19 18:54 Dose: 400 mg Haloperidol Lactate (Haldol) 2 mg IVPUSH Q2H PRN PRN Reason: Agitation Sodium Chloride (Normal Saline) 1,000 mls @ 100 mls/hr IV ASDIRECTED [facility] Last Admin: 07/19/19 18:46 Dose: 100 mls/hr Lorazepam (Ativan) 0 mg IV ASDIRECTED [facility]; Protocol Lorazepam (Ativan) 0 mg PO ASDIRECTED [facility]; Protocol Losartan Potassium (Cozaar) 25 mg PO DAILY [facility] Metoprolol Succinate (Toprol Xl) 25 mg PO DAILY [facility] Ondansetron HCl (Zofran) 4 mg IV Q4H PRN PRN Reason: Nausea/Vomiting Phenobarbital (Phenobarbital) 97.2 mg PO BID [facility] Last Admin: 07/19/19 20:06 Dose: 97.2 mg Phenytoin Sodium (Phenytoin) 200 mg PO BID [facility] Last Admin: 07/19/19 20:06 Dose: 200 mg Polyethylene Glycol (Miralax) 17 gm PO DAILY PRN PRN Reason: Constipation Sodium Chloride (Saline Flush) 10 ml FLUSH ASDIRECTED PRN PRN Reason: Keep Vein Open Tamsulosin HCl (Flomax) 0.4 mg PO DAILY [facility] Thiamine HCl (Vitamin B-1) 100 mg PO DAILY [facility] Trazodone HCl (Trazodone) 150 mg PO BEDTIME [facility] Last Admin: 07/19/19 20:06 Dose: 150 mg Labs: Laboratory Tests 07/19/19 Range/Units 15:44 Ethyl Alcohol 279 mg/dL Meds: Medications Generic Name Dose Route Start Last Admin Trade Name Freq PRN Reason Stop Dose Admin Acetaminophen 650 mg 07/19/19 17:46 Tylenol PO Q4H PRN Pain (Mild 1-3)/fever Hydrocodone Bitart/Acetaminophen 1 tab 07/19/19 17:46 07/19/19 19:29 Longs 325-5 Mg PO 1 tab Q4H PRN Administration Pain (moderate 4-6) Albuterol 2.5 mg 07/19/19 17:46 Proventil Neb Soln NEB Q4H PRN Shortness Of Breath/wheezing Apixaban 5 mg 07/19/19 21:00 07/19/19 20:06 Eliquis PO 5 mg BID [facility] Administration Citalopram Hydrobromide 30 mg 07/20/19 09:00 Celexa PO DAILY [facility] Docusate Sodium 100 mg 07/20/19 09:00 Colace PO DAILY [facility] Folic Acid 1 mg 07/20/19 09:00 Folic Acid PO DAILY [facility] Gabapentin 400 mg 07/19/19 17:46 07/19/19 18:54 Neurontin PO 07/23/19 09:47 400 mg Q8H [facility] Administration Haloperidol Lactate 2 mg 07/19/19 17:46 Haldol IVPUSH Q2H PRN Agitation Sodium Chloride 1,000 mls @ 100 mls/hr 07/19/19 17:46 07/19/19 18:46 Normal Saline IV 100 mls/hr ASDIRECTED [facility] Administration Lorazepam 0 mg 07/19/19 17:46 Ativan IV ASDIRECTED [facility] Protocol Lorazepam 0 mg 07/19/19 17:46 Ativan PO ASDIRECTED [facility] Protocol Losartan Potassium 25 mg 07/20/19 09:00 Cozaar PO DAILY [facility] Metoprolol Succinate 25 mg 07/20/19 09:00 Toprol Xl PO DAILY [facility] Ondansetron HCl 4 mg 07/19/19 17:46 Zofran IV Q4H PRN Nausea/Vomiting Phenobarbital 97.2 mg 07/19/19 21:00 07/19/19 20:06 Phenobarbital PO 97.2 mg BID [facility] Administration Phenytoin Sodium 200 mg 07/19/19 21:00 07/19/19 20:06 Phenytoin PO 200 mg BID [facility] Administration Polyethylene Glycol 17 gm 07/19/19 17:46 Miralax PO DAILY PRN Constipation Sodium Chloride 10 ml 07/19/19 17:46 Saline Flush FLUSH ASDIRECTED PRN Keep Vein Open Tamsulosin HCl 0.4 mg 07/20/19 09:00 Flomax PO DAILY [facility] Thiamine HCl 100 mg 07/20/19 09:00 Vitamin B-1 PO DAILY [facility] Trazodone HCl 150 mg 07/19/19 21:00 07/19/19 20:06 Trazodone PO 150 mg BEDTIME [facility] Administration Discontinued Medications Generic Name Dose Route Start Last Admin Trade Name Freq PRN Reason Stop Dose Admin Haloperidol Lactate 5 mg 07/19/19 17:20 07/19/19 17:25 Haldol IM 07/19/19 17:21 5 mg ONETIME ONE Administration Multivitamins/Minerals 10 ml/ 1,017.2 mls @ 500 mls/hr 07/19/19 15:45 15:59 Thiamine HCl 100 mg/ Folic IV 07/19/19 17:47 500 mls/hr Acid 1 mg/ Magnesium Sulfate 3 ASDIRECTED ONE Administration gm/ Sodium Chloride Phenobarbital 200 mg 07/19/19 15:33 07/19/19 16:01 Phenobarbital PO 07/19/19 15:34 Not Given NOW STA Phenobarbital 300 mg 07/19/19 15:34 07/19/19 15:51 Phenobarbital PO 07/19/19 15:35 300 mg NOW STA Administration Sodium Chloride 10 ml 07/19/19 15:31 07/19/19 16:01 Saline Flush FLUSH 10 ml ASDIRECTED PRN Administration Keep Vein Open - Re-Assessments/Exams Free Text/Narrative Re-Assessment/Exam: 07/19/19 16:15 Says he is now willing to go to [facility], he knows he is at risk of having a court ordered commitment. No beds tonight at [facility], there is expected to be some in the morning tomorrow. Social workers having been working with [facility]. Departure - Departure Time of Disposition: 17:25 Disposition: Refer to Observation Condition: Fair Clinical Impression: Alcohol abuse, Medical non-compliance, Seizure disorder, Frequent falls Alcohol intoxication Qualifiers: Complication of substance-induced condition: with unspecified complication Qualified Code(s): F10.929 - Alcohol use, unspecified with intoxication, unspecified Alcohol dependence Qualifiers: Substance use status: with intoxication Complication of substance-induced condition: with unspecified complication Qualified Code(s): F10.229 - Alcohol dependence with intoxication, unspecified - Discharge Information *PRESCRIPTION DRUG MONITORING PROGRAM REVIEWED*: No *COPY OF PRESCRIPTION DRUG MONITORING REPORT IN PATIENT MONSE: No Sepsis Event Note - Evaluation Sepsis Screening Result: No Definite Risk - Focused Exam Vital Signs: Vital Signs Temp Pulse Resp BP Pulse Ox 07/19/19 15:34 37.6 C 92 16 162/81 H 91 L 07/19/19 15:32 37.6 C 92 16 162/81 H 91 L Date Exam was Performed: 07/19/19 Time Exam was Performed: 20:10
--- NOTE | 2019-07-19 17:07 | PCM.HP.2 ---
H&P History of Present Illness - General Date of Service: 07/19/19 Admit Problem/Dx: Admission Diagnosis/Problem Admission Diagnosis/Problem Intoxication Source of Information: Patient, Old Records, Provider, RN Notes Reviewed History Limitations: Reports: Intoxication - History of Present Illness Initial Comments - Free Text/Narative: Mr. Degroot is a 69-year-old gentleman who was admitted through the emergency department with seizures and alcohol intoxication. He does have a known history of seizure disorder, apparently recently because of alcohol use has not been taking his antiepileptic medications. He also has a longstanding history of alcohol abuse. Over the past month he has had 6 emergency department visits and 2 admissions related to his alcohol and narcotic addictions. After his last admission [facility] and this was felt to be a safe plan for ongoing management as he would be unable to use alcohol there. He is now back at home and abusing alcohol with recurrent falls and 3 ER visits in the last 36 hours. He has been offered the option of detox admission and then placement back in penitentiary or assisted living where he is unable to consume alcohol. He refuses this option, stating that he is going to return home after this admission. - Related Data Allergies/Adverse Reactions: Allergies Allergy/AdvReac Type Severity Reaction Status Date / Time Penicillins Allergy Severe Anaphylactic Verified 07/18/19 12:44 Shock Home Medications: Home Meds PHENobarbitaL [Phenobarbital] 97.2 mg PO BID #60 tablet 09/16/16 [Rx] Phenytoin 200 mg PO BID #60 cap.er 09/16/16 [Rx] Citalopram [Citalopram HBr] 30 mg PO DAILY 10/22/16 [History] Apixaban [Eliquis] 5 mg PO BID 11/28/18 [History] Folic Acid 1 mg PO DAILY 11/28/18 [History] Losartan Potassium 25 mg PO DAILY 11/28/18 [History] Metoprolol Succinate [Toprol XL 50mg] 25 mg PO DAILY 11/28/18 [History] Multivitamin with Minerals [Multiple Vitamin] 1 tab PO DAILY 11/28/18 [History] Nitroglycerin 0.4 mg SL ASDIRECTED 11/28/18 [History] Tamsulosin HCl 0.4 mg PO DAILY 11/28/18 [History] Thiamine HCl [Vitamin B-1] 100 mg PO DAILY 11/28/18 [History] traZODone HCl [Trazodone HCl] 150 mg PO BEDTIME 11/28/18 [History] Acetaminophen [Tylenol] 650 mg PO Q4H PRN 12/01/18 [History] Acetaminophen/HYDROcodone [[place] 325-5 MG] 1 tab PO Q6H PRN 05/07/19 [History] Docusate Sodium [Colace] 100 mg PO DAILY 05/07/19 [History] Past Medical History HEENT History: Reports: Cataract, Impaired Vision, Macular Degeneration Cardiovascular History: Reports: Blood Clots/VTE/DVT, CAD, Heart Failure, Hypertension, SOB on Exertion, Syncope Respiratory History: Reports: COPD, PE, SOB, Other (See Below) Other Respiratory History: calcified pleural plaque on chest x-ray. Mesothelioma of both lungs Gastrointestinal History: Reports: Cholelithiasis, Chronic Constipation, GERD Genitourinary History: Reports: BPH, Renal Disease, Other (See Below) Other Genitourinary History: recent kidney function issue but undiagnoised at this time Musculoskeletal History: Reports: Back Pain, Chronic, Fracture, Osteoporosis, Other (See Below) Other Musculoskeletal History: has metal in left hand from [employer] during [place];. shattered pelvis; multiple compression fractures Neurological History: Reports: Neuropathy, Peripheral, Seizure Psychiatric History: Reports: Addiction, Depression, Eating Disorders, Suicide Attempt Other Psychiatric History: Malnutrition due to inability to swallow. Insomnia Endocrine/Metabolic History: Reports: Other (See Below) Other Endocrine/Metabolic History: recent elevated blood sugars, undiagnoised. thyroid cancer, failed to go to surgery on 09/01/16 Hematologic History: Reports: Anticoagulation Therapy Oncologic (Cancer) History: Reports: Lung, Thyroid Other Oncologic History: s/s of mesotheleoma - Infectious Disease History Infectious Disease History: Reports: Chicken Pox, Measles, Mumps - Past Surgical History Head Surgeries/Procedures: Reports: None HEENT Surgical History: Reports: Adenoidectomy, Cataract Surgery, Tonsillectomy Cardiovascular Surgical History: Reports: None Respiratory Surgical History: Reports: None GI Surgical History: Reports: Cholecystectomy, EGD, Esophageal Dilatation Male Surgical History: Reports: None Endocrine Surgical History: Reports: Thyroid Biopsy Neurological Surgical History: Reports: Spinal Fusion Musculoskeletal Surgical History: Reports: None Oncologic Surgical History: Reports: None Dermatological Surgical History: Reports: None Social & Family History - Family History Family Medical History: Noncontributory - Tobacco Use Smoking Status *Q: Heavy Tobacco Smoker Years of Tobacco use: 50 Packs/Tins Daily: 1 - Caffeine Use Caffeine Use: Reports: Coffee Caffeine Use Comment: unknown, patient has difficulty answering questions. - Recreational Drug Use Recreational Drug Use: No - Living Situation & Occupation Living situation: Reports: , with Family Occupation: Disabled H&P Review of Systems - Review of Systems: Review Of Systems: See Below General: Reports: ROS unobtainable (Alcohol intoxication) Exam - Exam Exam: See Below - Vital Signs Vital Signs: Last Vital Signs Temp 99.6 F 07/19/19 15:34 Pulse 92 07/19/19 15:34 Resp 16 07/19/19 15:34 BP 162/81 H 07/19/19 15:34 Pulse Ox 91 L 07/19/19 15:34 Weight: 109 lb 12.643 oz - Exam Quality Assessment: DVT Prophylaxis General: Alert, Oriented, Mild Distress, Lethargic. No: Cooperative HEENT: Conjunctiva Clear, Hearing Intact, Mucosa Moist & [place], Normal Nasal Septum, Posterior Pharynx Clear, Pupils Equal Neck: Supple, Trachea Midline, +2 Carotid Pulse wo Bruit Lungs: Clear to Auscultation, Normal Respiratory Effort Cardiovascular: Regular Rate, Regular Rhythm, Normal S1, Normal S2. No: Systolic Murmur, Diastolic Murmur GI/Abdominal Exam: Soft, Non-Tender, No Organomegaly, No Distention Back Exam: Normal Inspection, Full Range of Motion Extremities: Non-Tender, No Pedal Edema Skin: Warm, Dry, Intact Neurological: Cranial Nerves Intact, Strength Equal Bilateral, Normal Tone, Sensation Intact. No: Focal Deficit Neuro Extensive - Mental Status: Alert, Oriented x3, Normal Mood/Affect, Normal Cognition, Memory Intact - Patient Data Lab Results Last 24 hrs: Laboratory Results - last 24 hr 07/19/19 Range/Units 15:44 Ethyl Alcohol 279 mg/dL Sepsis Event Note - Evaluation Sepsis Screening Result: No Definite Risk - Focused Exam Vital Signs: Vital Signs Temp Pulse Resp BP Pulse Ox 07/19/19 15:34 99.6 F 92 16 162/81 H 91 L 07/19/19 15:32 99.6 F 92 16 162/81 H 91 L Date Exam was Performed: 07/19/19 Time Exam was Performed: 17:31 *Q Meaningful Use (ADM) - VTE Risk Assess *Q Each Risk Factor Represents 1 Point: Abnormal Pulmonary Function (COPD) Total Score 1 Point Risk Factors: 1 Each Risk Factor Represents 2 Points: Age 60 - 74 Years Total Score 2 Point Risk Factors: 2 Each Risk Factor Represents 3 Points: None Total Score 3 Point Risk Factors: 0 Each Risk Factor Represents 5 Points: None Total Score 5 Point Risk Factors: 0 Venous Thromboembolism Risk Factor Score *Q: 3 Problem List Initiated/Reviewed/Updated: Yes Orders Last 24hrs: Active Orders 24 hr Category Date Time Status Patient Status Manage Transfer [TRANSFER] Routine ADT 07/19/19 16:55 Ordered MVI, Adult with Vitamin K [Infuvite Adult] 10 ml Med 07/19/19 15:45 Active Thiamine [Vitamin B-1] 100 mg Folic Acid 1 mg Magnesium Sulfate [Magnesium Sulfate 50%] 3 gm Sodium Chloride 0.9% [Normal Saline] 1,000 ml IV ASDIRECTED Sodium Chloride 0.9% [Saline Flush] Med 07/19/19 15:31 Active 10 ml FLUSH ASDIRECTED PRN Saline Lock Insert [OM.PC] Routine Oth 07/19/19 15:31 Ordered Seizure Precautions [OM.PC] Routine Oth 07/19/19 15:31 Ordered Resuscitation Status Routine Resus Stat 07/19/19 17:00 Ordered Medication Orders Multivitamins/Minerals 10 ml/Thiamine HCl 100 mg/ Folic Acid 1 mg/ Magnesium Sulfate 3 gm/ Sodium Chloride 1,017.2 mls @ 500 mls/hr IV ASDIRECTED ONE Stop: 07/19/19 17:47 Last Admin: 07/19/19 15:59 Dose: 500 mls/hr Sodium Chloride (Saline Flush) 10 ml FLUSH ASDIRECTED PRN PRN Reason: Keep Vein Open Last Admin: 07/19/19 16:01 Dose: 10 ml Assessment/Plan Comment:: ASSESSMENT AND PLAN ALCOHOL ABUSE AND DEPENDENCE-recurrent ED visits and 2 previous admissions this month related to his alcohol as well as narcotic abuse and dependence. He has been unwilling to pursue recommended treatment and safer living options. 3 emergency department visits over the last 36 hours related to his intoxication and falls. He is unable to control his alcohol use and requires a more structured living situation where he is kept off of alcohol. -72-hour hold to facilitate commitment -IV fluids for hydration -Gabapentin protocol for alcohol withdrawal -Banana bag given in the ED -Alcohol withdrawal protocol RECURRENT FALLS-secondary to ongoing alcohol abuse SEIZURES-history of underlying seizure disorder. Apparently he has not been taking his seizure medication because of alcohol abuse -Resume outpatient medical therapy for seizures MAINTENANCE ISSUES -DVT prophylaxis; therapy with Eliquis should provide adequate DVT prophylaxis -GI prophylaxis; continue outpatient PPI therapy -Chavarria catheter; not indicated -Nutrition; 2 g sodium diet -Nicotine dependence; not required CODE STATUS-FULL CODE ADMISSION STATUS-patient will be admitted to inpatient status, expect at least a 2 night hospital stay for evaluation and management of problems as outlined above. At the time of this admission I do not reasonably expected evaluation and management of this problem will require more than a 96 hour hospital stay. DISPOSITION-anticipate discharge to home after the hospital stay. PRIMARY CARE PROVIDER-Dr. Castillo - Mortality Measure Prognosis:: Poor
[2019-07-19] MEDS ORDERED: Haloperidol Lactate 5 MG/ML SDV IM ONE (17:20)
[2019-07-19] MEDS ORDERED: Haloperidol Lactate 5 MG/ML SDV IVPUSH PRN (17:46)
[2019-07-19] MEDS ORDERED: Ondansetron 4 MG/2 ML SDV IV PRN (17:46)
[2019-07-19] MEDS ORDERED: LORazepam 2 MG/ML SDV IV SCH (17:46)
[2019-07-19] MEDS ORDERED: LORazepam 1 MG Tab PO SCH (17:46)
[2019-07-19] MEDS ORDERED: Polyethylene Glycol 3350 Powder 17 GM Packet PO PRN (17:46)
[2019-07-19] MEDS ORDERED: Albuterol 0.083% 2.5 MG/3 ML Neb Soln NEB PRN (17:46)
[2019-07-19] MEDS: Sodium Chloride 0.9% 1,000 ML IV SCH (18:46)
[2019-07-19] MEDS: Gabapentin 400 MG Cap PO SCH (18:54)
[2019-07-19] MEDS: Acetaminophen/HYDROcodone 325-5 MG Tab PO PRN (19:29)
[2019-07-19] MEDS: Apixaban 5 MG Tab PO SCH (20:06)
[2019-07-19] MEDS: PHENobarbital 32.4 MG Tab PO SCH (20:06)
[2019-07-19] MEDS: traZODone 50 MG Tab PO SCH (20:06)
[2019-07-19] MEDS: Phenytoin 100 MG Cap.ER PO SCH (20:06)
[2019-07-20] MEDS: Gabapentin 400 MG Cap PO SCH ×4 (01:26→17:31)
[2019-07-20] MEDS: Sodium Chloride 0.9% 1,000 ML IV SCH (04:20)
[2019-07-20] MEDS: Citalopram 10 MG Tab PO SCH (08:21)
[2019-07-20] MEDS: Thiamine 100 MG Tab PO SCH (08:22)
[2019-07-20] MEDS: Apixaban 5 MG Tab PO SCH ×2 (08:22→21:11)
[2019-07-20] MEDS: Tamsulosin 0.4 MG Cap.ER PO SCH (08:22)
[2019-07-20] MEDS: Phenytoin 100 MG Cap.ER PO SCH ×2 (08:23→21:10)
[2019-07-20] MEDS: Docusate Sodium 100 MG Cap PO SCH (08:23)
[2019-07-20] MEDS: Folic Acid 1 MG Tab PO SCH (08:23)
[2019-07-20] MEDS: Losartan 25 MG Tab PO SCH (08:24)
[2019-07-20] MEDS: Acetaminophen/HYDROcodone 325-5 MG Tab PO PRN ×3 (08:42→21:11)
[2019-07-20] MEDS: PHENobarbital 32.4 MG Tab PO SCH ×2 (08:43→21:10)
[2019-07-20] MEDS ORDERED: [UNRECOGNIZED DRUG - REMARK] PO SCH (09:00)
--- NOTE | 2019-07-20 10:03 | PCM.PN ---
- General Info Date of Service: 07/20/19 Subjective Update: There were no acute events overnight following admission. His vital signs have been stable. So far there has been no evidence for alcohol withdrawal. The patient has been calm and cooperative. We did review his 72-hour hold and our concerns about his recent drinking and behavior as well as the seizures. He has not had any seizures since he has been in the hospital. No complaints of abdominal pain or nausea. Functional Status: Reports: Pain Controlled, Tolerating Diet - Review of Systems General: Reports: Weakness Gastrointestinal: Denies: Abdominal Pain - Patient Data Vitals - Most Recent: Last Vital Signs Temp 37.1 C 07/20/19 08:00 Pulse 77 07/20/19 08:22 Resp 10 L 07/20/19 08:00 BP 126/46 L 07/20/19 08:24 Pulse Ox 94 L 07/20/19 08:00 Weight - Most Recent: 49.8 kg I&O - Last 24 Hours: Intake & Output 07/19/19 07/20/19 07/20/19 22:59 06:59 14:59 Intake Total 240 2382 440 Output Total 225 375 275 Balance 2006 Lab Results Last 24 Hours: Laboratory Results - last 24 hr 07/19/19 07/20/19 07/20/19 Range/Units 15:44 04:10 04:10 WBC 5.2 (4.5-11.0) K/uL RBC 3.47 L (4.30-5.90) M/uL Hgb 12.1 (12.0-15.0) g/dL Hct 36.2 L (40.0-54.0) % MCV 104 H (80-98) fL MCH 35 H (27-31) pg MCHC 33 (32-36) % Plt Count 215 (150-400) K/uL Neut % (Auto) 38 (36-66) % Lymph % (Auto) 48 H (24-44) % [place] % (Auto) 8 H (2-6) % Eos % (Auto) 5 H (2-4) % Baso % (Auto) 1 (0-1) % Sodium 147 (140-148) mmol/L Potassium 3.7 (3.6-5.2) mmol/L Chloride 110 H (100-108) mmol/L Carbon Dioxide 30 (21-32) mmol/L Anion Gap 10.7 (5.0-14.0) mmol/L BUN 21 H (7-18) mg/dL Creatinine 0.6 L (0.8-1.3) mg/dL Est Cr Clr Drug Dosing 81.85 mL/min Estimated GFR (MDRD) > 60 (>60) Glucose 81 (74-106) mg/dL Calcium 7.5 L (8.5-10.1) mg/dL Ethyl Alcohol 279 mg/dL Med Orders - Current: Current Medications Acetaminophen (Tylenol) 650 mg PO Q4H PRN PRN Reason: Pain (Mild 1-3)/fever Hydrocodone Bitart/Acetaminophen ([place] 325-5 Mg) 1 tab PO Q4H PRN PRN Reason: Pain (moderate 4-6) Last Admin: 07/20/19 08:42 Dose: 1 tab Albuterol (Proventil Neb Soln) 2.5 mg NEB Q4H PRN PRN Reason: Shortness Of Breath/wheezing Apixaban (Eliquis) 5 mg PO BID [facility] Last Admin: 07/20/19 08:22 Dose: 5 mg Citalopram Hydrobromide (Celexa) 30 mg PO DAILY [facility] Last Admin: 07/20/19 08:21 Dose: 30 mg Docusate Sodium (Colace) 100 mg PO DAILY [facility] Last Admin: 07/20/19 08:23 Dose: 100 mg Folic Acid (Folic Acid) 1 mg PO DAILY [facility] Last Admin: 07/20/19 08:23 Dose: 1 mg Gabapentin (Neurontin) 400 mg PO Q8H [facility] Stop: 07/23/19 09:47 Last Admin: 07/20/19 08:46 Dose: 400 mg Losartan Potassium (Cozaar) 25 mg PO DAILY [facility] Last Admin: 07/20/19 08:24 Dose: 25 mg Metoprolol Succinate (Toprol Xl) 25 mg PO DAILY [facility] Ondansetron HCl (Zofran) 4 mg IV Q4H PRN PRN Reason: Nausea/Vomiting Phenobarbital (Phenobarbital) 97.2 mg PO BID [facility] Last Admin: 07/20/19 08:43 Dose: 97.2 mg Phenytoin Sodium (Phenytoin) 200 mg PO BID [facility] Last Admin: 07/20/19 08:23 Dose: 200 mg Polyethylene Glycol (Miralax) 17 gm PO DAILY PRN PRN Reason: Constipation Sodium Chloride (Saline Flush) 10 ml FLUSH ASDIRECTED PRN PRN Reason: Keep Vein Open Tamsulosin HCl (Flomax) 0.4 mg PO DAILY [facility] Last Admin: 07/20/19 08:22 Dose: 0.4 mg Thiamine HCl (Vitamin B-1) 100 mg PO DAILY [facility] Last Admin: 07/20/19 08:22 Dose: 100 mg Trazodone HCl (Trazodone) 150 mg PO BEDTIME [facility] Last Admin: 07/19/19 20:06 Dose: 150 mg Discontinued Medications Haloperidol Lactate (Haldol) 5 mg IM ONETIME ONE Stop: 07/19/19 17:21 Last Admin: 07/19/19 17:25 Dose: 5 mg Haloperidol Lactate (Haldol) 2 mg IVPUSH Q2H PRN PRN Reason: Agitation Last Admin: 07/19/19 21:00 Dose: 2 mg Multivitamins/Minerals 10 ml/Thiamine HCl 100 mg/ Folic Acid 1 mg/ Magnesium Sulfate 3 gm/ Sodium Chloride 1,017.2 mls @ 500 mls/hr IV ASDIRECTED ONE Stop: 07/19/19 17:47 Last Admin: 07/19/19 15:59 Dose: 500 mls/hr Sodium Chloride (Normal Saline) 1,000 mls @ 100 mls/hr IV ASDIRECTED [facility] Last Admin: 07/20/19 04:20 Dose: 100 mls/hr Lorazepam (Ativan) 0 mg IV ASDIRECTED [facility]; Protocol Lorazepam (Ativan) 0 mg PO ASDIRECTED [facility]; Protocol Metoprolol Succinate (Toprol Xl) 25 mg PO DAILY [facility] Stop: 07/20/19 09:15 Last Admin: 07/20/19 08:22 Dose: 25 mg Phenobarbital (Phenobarbital) 200 mg PO NOW [facility] Stop: 07/19/19 15:34 Last Admin: 07/19/19 16:01 Dose: Not Given Phenobarbital (Phenobarbital) 300 mg PO NOW ST[facility] Stop: 07/19/19 15:35 Last Admin: 07/19/19 15:51 Dose: 300 mg Sodium Chloride (Saline Flush) 10 ml FLUSH ASDIRECTED PRN PRN Reason: Keep Vein Open Last Admin: 07/19/19 16:01 Dose: 10 ml - Exam Quality Assessment: No: Supplemental Oxygen General: Alert, Oriented, Cooperative, No Acute Distress Lungs: Normal Respiratory Effort Cardiovascular: Regular Rate, Regular Rhythm GI/Abdominal Exam: Soft, No Distention Extremities: No Pedal Edema Psy/Mental Status: Alert, Normal Affect Sepsis Event Note - Evaluation Sepsis Screening Result: No Definite Risk - Focused Exam Vital Signs: Vital Signs Temp Pulse Pulse Resp BP BP Pulse Ox 07/20/19 08:24 126/46 L 07/20/19 08:22 77 126/46 L 07/20/19 08:00 37.1 C 69 10 L 126/46 L 94 L 07/20/19 06:00 37.0 C 67 17 142/66 H 93 L 07/20/19 04:00 63 17 117/43 L 99 07/20/19 02:00 67 16 126/65 93 L 07/20/19 00:00 36.7 C 84 19 131/67 99 Date Exam was Performed: 07/20/19 Time Exam was Performed: 13:36 - Problem List Review Problem List Initiated/Reviewed/Updated: Yes - My Orders Last 24 Hours: My Active Orders 07/20/19 10:02 Discontinue Telemetry Monitoring [Cardiac Monitoring Discontinue] [RC] Click to Edit 07/21/19 05:00 BASIC METABOLIC PANEL,BMP [CHEM] Timed - Plan Plan:: ASSESSMENT AND PLAN ALCOHOL ABUSE AND DEPENDENCE-recurrent ED visits and 2 previous admissions this month related to his alcohol as well as narcotic abuse and dependence. He has been unwilling to pursue recommended treatment and safer living options. 3 emergency department visits over the last 36 hours related to his intoxication and falls. He is unable to control his alcohol use and requires a more structured living situation where he is kept off of alcohol. No evidence for alcohol withdrawal so far. -72-hour hold to facilitate commitment -Saline lock IV -Gabapentin protocol for alcohol withdrawal -Petition for commitment has been initiated RECURRENT FALLS-secondary to ongoing alcohol abuse SEIZURES-history of underlying seizure disorder. Apparently he has not been taking his seizure medication because of alcohol abuse. No seizures during the hospital stay. -Continue outpatient medical therapy for seizures MAINTENANCE ISSUES -DVT prophylaxis; apixaban -GI prophylaxis; continue outpatient PPI therapy -Chavarria catheter; not indicated -Nutrition; 2 g sodium diet DISPOSITION-anticipate discharge to inpatient treatment versus potentially home after the hospital stay. Anthony Sotelo MD
[2019-07-20] MEDS: Acetaminophen 325 MG Tab PO PRN (16:39)
[2019-07-20] MEDS: traZODone 50 MG Tab PO SCH (21:10)
[2019-07-21] MEDS ORDERED: Acetaminophen 325 MG Tab ONE ×2 (01:39→05:16)
[2019-07-21] MEDS: Acetaminophen/HYDROcodone 325-5 MG Tab PO PRN ×6 (01:40→21:20)
[2019-07-21] MEDS: Acetaminophen 325 MG Tab PO PRN ×6 (01:41→21:20)
[2019-07-21] MEDS: Gabapentin 400 MG Cap PO SCH ×2 (01:42→09:20)
[2019-07-21] MEDS: Docusate Sodium 100 MG Cap PO SCH (09:20)
[2019-07-21] MEDS: Phenytoin 100 MG Cap.ER PO SCH ×2 (09:20→21:19)
[2019-07-21] MEDS: Folic Acid 1 MG Tab PO SCH (09:20)
[2019-07-21] MEDS: Losartan 25 MG Tab PO SCH (09:20)
[2019-07-21] MEDS: Tamsulosin 0.4 MG Cap.ER PO SCH (09:20)
[2019-07-21] MEDS: Apixaban 5 MG Tab PO SCH ×2 (09:21→21:20)
[2019-07-21] MEDS: Metoprolol Succinate 25 MG Tab.ER PO SCH (09:21)
[2019-07-21] MEDS: Thiamine 100 MG Tab PO SCH (09:21)
[2019-07-21] MEDS: Citalopram 10 MG Tab PO SCH (09:21)
[2019-07-21] MEDS: PHENobarbital 32.4 MG Tab PO SCH ×2 (09:23→21:19)
--- NOTE | 2019-07-21 09:40 | PCM.PN ---
- General Info Date of Service: 07/21/19 Subjective Update: There were no acute events overnight. There has been no evidence for alcohol withdrawal. Vital signs have been stable. He has not had any fevers. Patient has been calm and cooperative. He has been up walking the halls. No complaints other than his chronic back and leg pain. Functional Status: Reports: Pain Controlled, Tolerating Diet - Review of Systems General: Denies: Fever - Patient Data Vitals - Most Recent: Last Vital Signs Temp 35.8 C 07/21/19 07:43 Pulse 80 07/21/19 09:21 Resp 14 07/21/19 07:43 BP 160/80 H 07/21/19 09:21 Pulse Ox 98 07/21/19 07:43 Weight - Most Recent: 49.8 kg I&O - Last 24 Hours: Intake & Output 07/20/19 07/21/19 07/21/19 22:59 06:59 14:59 Intake Total 240 Balance 240 Lab Results Last 24 Hours: Laboratory Results - last 24 hr 07/21/19 Range/Units 04:00 Sodium 143 (140-148) mmol/L Potassium 4.1 (3.6-5.2) mmol/L Chloride 106 (100-108) mmol/L Carbon Dioxide 32 (21-32) mmol/L Anion Gap 4.7 L (5.0-14.0) mmol/L BUN 14 (7-18) mg/dL Creatinine 0.5 L (0.8-1.3) mg/dL Est Cr Clr Drug Dosing 98.22 mL/min Estimated GFR (MDRD) > 60 (>60) Glucose 152 H (74-106) mg/dL Calcium 7.6 L (8.5-10.1) mg/dL Med Orders - Current: Current Medications Acetaminophen (Tylenol) 650 mg PO Q4H PRN PRN Reason: Pain (Mild 1-3)/fever Last Admin: 07/21/19 09:19 Dose: 325 mg Hydrocodone Bitart/Acetaminophen ([place] 325-5 Mg) 1 tab PO Q4H PRN PRN Reason: Pain (moderate 4-6) Last Admin: 07/21/19 09:18 Dose: 1 tab Albuterol (Proventil Neb Soln) 2.5 mg NEB Q4H PRN PRN Reason: Shortness Of Breath/wheezing Apixaban (Eliquis) 5 mg PO BID [facility] Last Admin: 07/21/19 09:21 Dose: 5 mg Citalopram Hydrobromide (Celexa) 30 mg PO DAILY [facility] Last Admin: 07/21/19 09:21 Dose: 30 mg Docusate Sodium (Colace) 100 mg PO DAILY [facility] Last Admin: 07/21/19 09:20 Dose: 100 mg Folic Acid (Folic Acid) 1 mg PO DAILY [facility] Last Admin: 07/21/19 09:20 Dose: 1 mg Gabapentin (Neurontin) 400 mg PO Q8H [facility] Stop: 07/23/19 09:47 Last Admin: 07/21/19 09:20 Dose: 400 mg Losartan Potassium (Cozaar) 25 mg PO DAILY [facility] Last Admin: 07/21/19 09:20 Dose: 25 mg Metoprolol Succinate (Toprol Xl) 25 mg PO DAILY [facility] Last Admin: 07/21/19 09:21 Dose: 25 mg Ondansetron HCl (Zofran) 4 mg IV Q4H PRN PRN Reason: Nausea/Vomiting Phenobarbital (Phenobarbital) 97.2 mg PO BID [facility] Last Admin: 07/21/19 09:23 Dose: 97.2 mg Phenytoin Sodium (Phenytoin) 200 mg PO BID [facility] Last Admin: 07/21/19 09:20 Dose: 200 mg Polyethylene Glycol (Miralax) 17 gm PO DAILY PRN PRN Reason: Constipation Sodium Chloride (Saline Flush) 10 ml FLUSH ASDIRECTED PRN PRN Reason: Keep Vein Open Tamsulosin HCl (Flomax) 0.4 mg PO DAILY [facility] Last Admin: 07/21/19 09:20 Dose: 0.4 mg Thiamine HCl (Vitamin B-1) 100 mg PO DAILY [facility] Last Admin: 07/21/19 09:21 Dose: 100 mg Trazodone HCl (Trazodone) 150 mg PO BEDTIME [facility] Last Admin: 07/20/19 21:10 Dose: 150 mg Discontinued Medications Acetaminophen (Tylenol) Confirm Administered Dose 325 mg .ROUTE .STK-MED ONE Stop: 07/21/19 01:40 Last Admin: 07/21/19 04:04 Dose: Not Given Acetaminophen (Tylenol) Confirm Administered Dose 325 mg .ROUTE .STK-MED ONE Stop: 07/21/19 05:17 Last Admin: 07/21/19 05:18 Dose: Not Given Haloperidol Lactate (Haldol) 5 mg IM ONETIME ONE Stop: 07/19/19 17:21 Last Admin: 07/19/19 17:25 Dose: 5 mg Haloperidol Lactate (Haldol) 2 mg IVPUSH Q2H PRN PRN Reason: Agitation Last Admin: 07/19/19 21:00 Dose: 2 mg Multivitamins/Minerals 10 ml/Thiamine HCl 100 mg/ Folic Acid 1 mg/ Magnesium Sulfate 3 gm/ Sodium Chloride 1,017.2 mls @ 500 mls/hr IV ASDIRECTED ONE Stop: 07/19/19 17:47 Last Admin: 07/19/19 15:59 Dose: 500 mls/hr Sodium Chloride (Normal Saline) 1,000 mls @ 100 mls/hr IV ASDIRECTED [facility] Last Admin: 07/20/19 04:20 Dose: 100 mls/hr Lorazepam (Ativan) 0 mg IV ASDIRECTED [facility]; Protocol Lorazepam (Ativan) 0 mg PO ASDIRECTED [facility]; Protocol Metoprolol Succinate (Toprol Xl) 25 mg PO DAILY [facility] Stop: 07/20/19 09:15 Last Admin: 07/20/19 08:22 Dose: 25 mg Phenobarbital (Phenobarbital) 200 mg PO NOW [facility] Stop: 07/19/19 15:34 Last Admin: 07/19/19 16:01 Dose: Not Given Phenobarbital (Phenobarbital) 300 mg PO NOW [facility] Stop: 07/19/19 15:35 Last Admin: 07/19/19 15:51 Dose: 300 mg Sodium Chloride (Saline Flush) 10 ml FLUSH ASDIRECTED PRN PRN Reason: Keep Vein Open Last Admin: 07/19/19 16:01 Dose: 10 ml - Exam Quality Assessment: No: Supplemental Oxygen General: Alert, Oriented, Cooperative, No Acute Distress Lungs: Normal Respiratory Effort GI/Abdominal Exam: Soft, No Distention Extremities: No Pedal Edema. No: Increased Warmth Skin: Warm, Dry Psy/Mental Status: Alert, Normal Affect. No: Withdrawal Symptoms Sepsis Event Note - Evaluation Sepsis Screening Result: No Definite Risk - Focused Exam Vital Signs: Vital Signs Temp Pulse Pulse Resp BP BP Pulse Ox 07/21/19 09:21 80 160/80 H 07/21/19 09:20 160/80 H 07/21/19 07:43 35.8 C 58 L 14 161/55 H 98 07/21/19 04:00 35.8 C 16 147/57 H 96 07/21/19 00:00 35.5 C 52 L 12 138/52 L 96 Date Exam was Performed: 07/21/19 Time Exam was Performed: 15:49 - Problem List Review Problem List Initiated/Reviewed/Updated: Yes - My Orders Last 24 Hours: My Active Orders 07/20/19 10:02 Discontinue Telemetry Monitoring [Cardiac Monitoring Discontinue] [RC] Click to Edit 07/20/19 10:25 PT Evaluation and Treatment [CONS] Routine - Plan Plan:: ASSESSMENT AND PLAN ALCOHOL ABUSE AND DEPENDENCE-no evidence for alcohol withdrawal and vital signs have been stable. Commitment process has been initiated. -72-hour hold to facilitate commitment -Saline lock IV -Discontinue gabapentin -Follow-up petition process RECURRENT FALLS-secondary to ongoing alcohol abuse. Stable on his feet so far. SEIZURES-No seizures during the hospital stay. -Continue outpatient medical therapy for seizures MAINTENANCE ISSUES -DVT prophylaxis; apixaban -GI prophylaxis; continue outpatient PPI therapy -Chavarria catheter; not indicated -Nutrition; 2 g sodium diet DISPOSITION-anticipate discharge to inpatient treatment versus potentially home after the hospital stay. Anthony Sotelo MD
[2019-07-21] MEDS: Melatonin 3 MG Tab PO SCH (21:19)
[2019-07-21] MEDS: traZODone 50 MG Tab PO SCH (21:20)
[2019-07-22] MEDS: Acetaminophen 325 MG Tab PO PRN ×5 (01:39→17:41)
[2019-07-22] MEDS: Acetaminophen/HYDROcodone 325-5 MG Tab PO PRN ×5 (01:40→17:40)
[2019-07-22] MEDS: Metoprolol Succinate 25 MG Tab.ER PO SCH (09:28)
[2019-07-22] MEDS: Phenytoin 100 MG Cap.ER PO SCH ×2 (09:29→20:34)
[2019-07-22] MEDS: PHENobarbital 32.4 MG Tab PO SCH ×2 (09:30→20:36)
[2019-07-22] MEDS: Thiamine 100 MG Tab PO SCH (09:31)
[2019-07-22] MEDS: Tamsulosin 0.4 MG Cap.ER PO SCH (09:31)
[2019-07-22] MEDS: Losartan 25 MG Tab PO SCH (09:32)
[2019-07-22] MEDS: Docusate Sodium 100 MG Cap PO SCH (09:33)
[2019-07-22] MEDS: Apixaban 5 MG Tab PO SCH ×2 (09:34→20:35)
[2019-07-22] MEDS: Folic Acid 1 MG Tab PO SCH (09:34)
[2019-07-22] MEDS: Citalopram 10 MG Tab PO SCH (09:35)
--- NOTE | 2019-07-22 09:46 | PCM.PN ---
- General Info Date of Service: 07/22/19 Subjective Update: There were no acute events overnight. Chronic back and leg pain is stable. No fevers. No evidence for alcohol withdrawal. Patient has been up and walking around without difficulty. Functional Status: Reports: Pain Controlled, Tolerating Diet - Review of Systems General: Denies: Fever Gastrointestinal: Denies: Abdominal Pain - Patient Data Vitals - Most Recent: Last Vital Signs Temp 35.9 C 07/22/19 08:00 Pulse 63 07/22/19 09:28 Resp 14 07/22/19 08:00 BP 136/58 L 07/22/19 09:32 Pulse Ox 99 07/22/19 08:00 Weight - Most Recent: 49.8 kg I&O - Last 24 Hours: Intake & Output 07/21/19 07/22/19 07/22/19 22:59 06:59 14:59 Intake Total 240 Balance 240 Med Orders - Current: Current Medications Acetaminophen (Tylenol) 325 mg PO Q4H PRN PRN Reason: Pain (Mild 1-3)/fever Last Admin: 07/22/19 09:37 Dose: 325 mg Hydrocodone Bitart/Acetaminophen ([place] 325-5 Mg) 1 tab PO Q4H PRN PRN Reason: Pain (moderate 4-6) Last Admin: 07/22/19 09:36 Dose: 1 tab Albuterol (Proventil Neb Soln) 2.5 mg NEB Q4H PRN PRN Reason: Shortness Of Breath/wheezing Apixaban (Eliquis) 5 mg PO BID [facility] Last Admin: 07/22/19 09:34 Dose: 5 mg Citalopram Hydrobromide (Celexa) 30 mg PO DAILY [facility] Last Admin: 07/22/19 09:35 Dose: 30 mg Docusate Sodium (Colace) 100 mg PO DAILY [facility] Last Admin: 07/22/19 09:33 Dose: 100 mg Folic Acid (Folic Acid) 1 mg PO DAILY [facility] Last Admin: 07/22/19 09:34 Dose: 1 mg Losartan Potassium (Cozaar) 25 mg PO DAILY [facility] Last Admin: 07/22/19 09:32 Dose: 25 mg Melatonin (Melatonin) 9 mg PO BEDTIME [facility] Last Admin: 07/21/19 21:19 Dose: 9 mg Metoprolol Succinate (Toprol Xl) 25 mg PO DAILY [facility] Last Admin: 07/22/19 09:28 Dose: 25 mg Ondansetron HCl (Zofran) 4 mg IV Q4H PRN PRN Reason: Nausea/Vomiting Phenobarbital (Phenobarbital) 97.2 mg PO BID [facility] Last Admin: 07/22/19 09:30 Dose: 97.2 mg Phenytoin Sodium (Phenytoin) 200 mg PO BID [facility] Last Admin: 07/22/19 09:29 Dose: 200 mg Polyethylene Glycol (Miralax) 17 gm PO DAILY PRN PRN Reason: Constipation Sodium Chloride (Saline Flush) 10 ml FLUSH ASDIRECTED PRN PRN Reason: Keep Vein Open Tamsulosin HCl (Flomax) 0.4 mg PO DAILY [facility] Last Admin: 07/22/19 09:31 Dose: 0.4 mg Thiamine HCl (Vitamin B-1) 100 mg PO DAILY [facility] Last Admin: 07/22/19 09:31 Dose: 100 mg Trazodone HCl (Trazodone) 150 mg PO BEDTIME [facility] Last Admin: 07/21/19 21:20 Dose: 150 mg Discontinued Medications Acetaminophen (Tylenol) 650 mg PO Q4H PRN PRN Reason: Pain (Mild 1-3)/fever Last Admin: 07/21/19 09:19 Dose: 325 mg Acetaminophen (Tylenol) Confirm Administered Dose 325 mg .ROUTE .STK-MED ONE Stop: 07/21/19 01:40 Last Admin: 07/21/19 04:04 Dose: Not Given Acetaminophen (Tylenol) Confirm Administered Dose 325 mg .ROUTE .STK-MED ONE Stop: 07/21/19 05:17 Last Admin: 07/21/19 05:18 Dose: Not Given Gabapentin (Neurontin) 400 mg PO Q8H [facility] Stop: 07/23/19 09:47 Last Admin: 07/21/19 09:20 Dose: 400 mg Haloperidol Lactate (Haldol) 5 mg IM ONETIME ONE Stop: 07/19/19 17:21 Last Admin: 07/19/19 17:25 Dose: 5 mg Haloperidol Lactate (Haldol) 2 mg IVPUSH Q2H PRN PRN Reason: Agitation Last Admin: 07/19/19 21:00 Dose: 2 mg Multivitamins/Minerals 10 ml/Thiamine HCl 100 mg/ Folic Acid 1 mg/ Magnesium Sulfate 3 gm/ Sodium Chloride 1,017.2 mls @ 500 mls/hr IV ASDIRECTED ONE Stop: 07/19/19 17:47 Last Admin: 07/19/19 15:59 Dose: 500 mls/hr Sodium Chloride (Normal Saline) 1,000 mls @ 100 mls/hr IV ASDIRECTED [facility] Last Admin: 07/20/19 04:20 Dose: 100 mls/hr Lorazepam (Ativan) 0 mg IV ASDIRECTED [facility]; Protocol Lorazepam (Ativan) 0 mg PO ASDIRECTED [facility]; Protocol Metoprolol Succinate (Toprol Xl) 25 mg PO DAILY [facility] Stop: 07/20/19 09:15 Last Admin: 07/20/19 08:22 Dose: 25 mg Phenobarbital (Phenobarbital) 200 mg PO NOW STA Stop: 07/19/19 15:34 Last Admin: 07/19/19 16:01 Dose: Not Given Phenobarbital (Phenobarbital) 300 mg PO NOW STA Stop: 07/19/19 15:35 Last Admin: 07/19/19 15:51 Dose: 300 mg Sodium Chloride (Saline Flush) 10 ml FLUSH ASDIRECTED PRN PRN Reason: Keep Vein Open Last Admin: 07/19/19 16:01 Dose: 10 ml - Exam Quality Assessment: No: Supplemental Oxygen General: Alert, Oriented, Cooperative, No Acute Distress Lungs: Normal Respiratory Effort GI/Abdominal Exam: Soft, No Distention Extremities: No Pedal Edema Psy/Mental Status: Alert, Normal Affect. No: Withdrawal Symptoms Sepsis Event Note - Evaluation Sepsis Screening Result: No Definite Risk - Focused Exam Vital Signs: Vital Signs Temp Pulse Pulse Resp BP BP Pulse Ox 07/22/19 09:32 136/58 L 07/22/19 09:28 63 136/58 L 07/22/19 08:00 35.9 C 63 14 136/58 L 99 07/22/19 04:00 35.8 C 57 L 16 123/50 L 97 07/22/19 00:59 35.8 C 65 14 133/64 97 Date Exam was Performed: 07/22/19 Time Exam was Performed: 13:37 - Problem List Review Problem List Initiated/Reviewed/Updated: Yes - My Orders Last 24 Hours: My Active Orders 07/21/19 09:40 Acetaminophen [Tylenol] 325 mg PO Q4H PRN 07/21/19 21:00 Melatonin 9 mg PO BEDTIME - Plan Plan:: ASSESSMENT AND PLAN ALCOHOL ABUSE AND DEPENDENCE-no evidence for alcohol withdrawal and vital signs have been stable. Commitment process has been initiated. 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 Stable on his feet so far. SEIZURES-No seizures during the hospital stay. -Continue outpatient medical therapy for seizures MAINTENANCE ISSUES -DVT prophylaxis; apixaban -GI prophylaxis; continue outpatient PPI therapy -Chavarria catheter; not indicated -Nutrition; 2 g sodium diet DISPOSITION-anticipate discharge to inpatient treatment versus potentially home after the hospital stay. Anthony Sotelo MD
[2019-07-22] MEDS: Melatonin 3 MG Tab PO SCH (20:35)
[2019-07-22] MEDS: traZODone 50 MG Tab PO SCH (20:35)
[2019-07-23] MEDS: Acetaminophen/HYDROcodone 325-5 MG Tab PO PRN ×5 (02:31→19:03)
[2019-07-23] MEDS: Acetaminophen 325 MG Tab PO PRN ×5 (02:31→19:02)
--- NOTE | 2019-07-23 09:18 | PCM.PN ---
- General Info Date of Service: 07/23/19 Subjective Update: No acute events overnight. Vital signs have been stable. Patient has been calm and cooperative. The court has decided to uphold commitment thus far and he has a preliminary hearing scheduled for tomorrow. Patient has been up and walking around in the halls using his walker. Functional Status: Reports: Pain Controlled, Tolerating Diet - Review of Systems General: Denies: Fever - Patient Data Vitals - Most Recent: Last Vital Signs Temp 36.3 C 07/23/19 04:00 Pulse 68 07/23/19 04:00 Resp 15 07/23/19 04:00 BP 133/52 L 07/23/19 04:00 Pulse Ox 98 07/23/19 04:00 Weight - Most Recent: 49.8 kg Med Orders - Current: Current Medications Acetaminophen (Tylenol) 325 mg PO Q4H PRN PRN Reason: Pain (Mild 1-3)/fever Last Admin: 07/23/19 06:46 Dose: 325 mg Hydrocodone Bitart/Acetaminophen ([place] 325-5 Mg) 1 tab PO Q4H PRN PRN Reason: Pain (moderate 4-6) Last Admin: 07/23/19 06:45 Dose: 1 tab Albuterol (Proventil Neb Soln) 2.5 mg NEB Q4H PRN PRN Reason: Shortness Of Breath/wheezing Apixaban (Eliquis) 5 mg PO BID [facility] Last Admin: 07/22/19 20:35 Dose: 5 mg Citalopram Hydrobromide (Celexa) 30 mg PO DAILY [facility] Last Admin: 07/22/19 09:35 Dose: 30 mg Docusate Sodium (Colace) 100 mg PO DAILY [facility] Last Admin: 07/22/19 09:33 Dose: 100 mg Folic Acid (Folic Acid) 1 mg PO DAILY [facility] Last Admin: 07/22/19 09:34 Dose: 1 mg Losartan Potassium (Cozaar) 25 mg PO DAILY [facility] Last Admin: 07/22/19 09:32 Dose: 25 mg Melatonin (Melatonin) 9 mg PO BEDTIME [facility] Last Admin: 07/22/19 20:35 Dose: 9 mg Metoprolol Succinate (Toprol Xl) 25 mg PO DAILY [facility] Last Admin: 07/22/19 09:28 Dose: 25 mg Ondansetron HCl (Zofran) 4 mg IV Q4H PRN PRN Reason: Nausea/Vomiting Phenobarbital (Phenobarbital) 97.2 mg PO BID [facility] Last Admin: 07/22/19 20:36 Dose: 97.2 mg Phenytoin Sodium (Phenytoin) 200 mg PO BID [facility] Last Admin: 07/22/19 20:34 Dose: 200 mg Polyethylene Glycol (Miralax) 17 gm PO DAILY PRN PRN Reason: Constipation Sodium Chloride (Saline Flush) 10 ml FLUSH ASDIRECTED PRN PRN Reason: Keep Vein Open Tamsulosin HCl (Flomax) 0.4 mg PO DAILY [facility] Last Admin: 07/22/19 09:31 Dose: 0.4 mg Thiamine HCl (Vitamin B-1) 100 mg PO DAILY [facility] Last Admin: 07/22/19 09:31 Dose: 100 mg Trazodone HCl (Trazodone) 150 mg PO BEDTIME [facility] Last Admin: 07/22/19 20:35 Dose: 150 mg Discontinued Medications Acetaminophen (Tylenol) 650 mg PO Q4H PRN PRN Reason: Pain (Mild 1-3)/fever Last Admin: 07/21/19 09:19 Dose: 325 mg Acetaminophen (Tylenol) Confirm Administered Dose 325 mg .ROUTE .STK-MED ONE Stop: 07/21/19 01:40 Last Admin: 07/21/19 04:04 Dose: Not Given Acetaminophen (Tylenol) Confirm Administered Dose 325 mg .ROUTE .STK-MED ONE Stop: 07/21/19 05:17 Last Admin: 07/21/19 05:18 Dose: Not Given Gabapentin (Neurontin) 400 mg PO Q8H [facility] Stop: 07/23/19 09:47 Last Admin: 07/21/19 09:20 Dose: 400 mg Haloperidol Lactate (Haldol) 5 mg IM ONETIME ONE Stop: 07/19/19 17:21 Last Admin: 07/19/19 17:25 Dose: 5 mg Haloperidol Lactate (Haldol) 2 mg IVPUSH Q2H PRN PRN Reason: Agitation Last Admin: 07/19/19 21:00 Dose: 2 mg Multivitamins/Minerals 10 ml/Thiamine HCl 100 mg/ Folic Acid 1 mg/ Magnesium Sulfate 3 gm/ Sodium Chloride 1,017.2 mls @ 500 mls/hr IV ASDIRECTED ONE Stop: 07/19/19 17:47 Last Admin: 07/19/19 15:59 Dose: 500 mls/hr Sodium Chloride (Normal Saline) 1,000 mls @ 100 mls/hr IV ASDIRECTED [facility] Last Admin: 07/20/19 04:20 Dose: 100 mls/hr Lorazepam (Ativan) 0 mg IV ASDIRECTED [facility]; Protocol Lorazepam (Ativan) 0 mg PO ASDIRECTED [facility]; Protocol Metoprolol Succinate (Toprol Xl) 25 mg PO DAILY [facility] Stop: 07/20/19 09:15 Last Admin: 07/20/19 08:22 Dose: 25 mg Phenobarbital (Phenobarbital) 200 mg PO NOW STA Stop: 07/19/19 15:34 Last Admin: 07/19/19 16:01 Dose: Not Given Phenobarbital (Phenobarbital) 300 mg PO NOW STA Stop: 07/19/19 15:35 Last Admin: 07/19/19 15:51 Dose: 300 mg Sodium Chloride (Saline Flush) 10 ml FLUSH ASDIRECTED PRN PRN Reason: Keep Vein Open Last Admin: 07/19/19 16:01 Dose: 10 ml - Exam Quality Assessment: No: Supplemental Oxygen General: Alert, Oriented, Cooperative, No Acute Distress Lungs: Normal Respiratory Effort GI/Abdominal Exam: Soft, No Distention Extremities: Pedal Edema (trace bilateral ankle edema) Skin: Warm, Dry Psy/Mental Status: Alert, Normal Affect Sepsis Event Note - Evaluation Sepsis Screening Result: No Definite Risk - Focused Exam Vital Signs: Vital Signs Temp Pulse Resp BP Pulse Ox 07/23/19 04:00 36.3 C 68 15 133/52 L 98 Date Exam was Performed: 07/23/19 Time Exam was Performed: 12:54 - Problem List Review Problem List Initiated/Reviewed/Updated: Yes - My Orders Last 24 Hours: My Active Orders 07/22/19 10:30 Peripheral IV Discontinue [OM.PC] Routine - Plan Plan:: ASSESSMENT AND PLAN ALCOHOL ABUSE AND DEPENDENCE-no evidence for alcohol withdrawal and vital signs have been stable. Commitment process has been initiated and preliminary hearing will be tomorrow. 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 Stable on his feet so far. SEIZURES-No seizures during the hospital stay. -Continue outpatient medical therapy for seizures MAINTENANCE ISSUES -DVT prophylaxis; apixaban -GI prophylaxis; PPI -Chavarria catheter; not indicated -Nutrition; 2 g sodium diet DISPOSITION-anticipate discharge to inpatient treatment versus potentially home after the hospital stay. Anthony Sotelo MD
[2019-07-23] MEDS: Thiamine 100 MG Tab PO SCH (09:25)
[2019-07-23] MEDS: Citalopram 10 MG Tab PO SCH (09:25)
[2019-07-23] MEDS: Tamsulosin 0.4 MG Cap.ER PO SCH (09:26)
[2019-07-23] MEDS: Apixaban 5 MG Tab PO SCH ×2 (09:26→20:48)
[2019-07-23] MEDS: Phenytoin 100 MG Cap.ER PO SCH ×2 (09:26→20:48)
[2019-07-23] MEDS: Folic Acid 1 MG Tab PO SCH (09:26)
[2019-07-23] MEDS: Docusate Sodium 100 MG Cap PO SCH (09:26)
[2019-07-23] MEDS: Losartan 25 MG Tab PO SCH (09:27)
[2019-07-23] MEDS: Metoprolol Succinate 25 MG Tab.ER PO SCH (09:27)
[2019-07-23] MEDS: PHENobarbital 32.4 MG Tab PO SCH ×2 (09:31→20:48)
[2019-07-23] MEDS: traZODone 50 MG Tab PO SCH (20:48)
[2019-07-23] MEDS: Melatonin 3 MG Tab PO SCH (20:48)
[2019-07-24] MEDS: Acetaminophen/HYDROcodone 325-5 MG Tab PO PRN ×6 (00:23→20:38)
[2019-07-24] MEDS: Acetaminophen 325 MG Tab PO PRN ×5 (00:23→16:27)
[2019-07-24] MEDS: Citalopram 10 MG Tab PO SCH (08:14)
[2019-07-24] MEDS: Docusate Sodium 100 MG Cap PO SCH (08:14)
[2019-07-24] MEDS: Losartan 25 MG Tab PO SCH (08:15)
[2019-07-24] MEDS: Tamsulosin 0.4 MG Cap.ER PO SCH (08:17)
[2019-07-24] MEDS: Apixaban 5 MG Tab PO SCH ×2 (08:17→20:41)
[2019-07-24] MEDS: PHENobarbital 32.4 MG Tab PO SCH ×2 (08:18→20:40)
[2019-07-24] MEDS: Folic Acid 1 MG Tab PO SCH (08:18)
[2019-07-24] MEDS: Metoprolol Succinate 25 MG Tab.ER PO SCH (08:24)
[2019-07-24] MEDS: Phenytoin 100 MG Cap.ER PO SCH ×2 (08:24→20:40)
[2019-07-24] MEDS: Thiamine 100 MG Tab PO SCH (08:24)
--- NOTE | 2019-07-24 11:42 | PCM.PN ---
- General Info Date of Service: 07/24/19 Subjective Update: No acute events overnight. Back pain is chronic and stable. He has been up and walking around. No behavior issues. He had a preliminary hearing at court today. Next court date will be August 04. - Patient Data Vitals - Most Recent: Last Vital Signs Temp 36.4 C 07/24/19 09:00 Pulse 72 07/24/19 09:00 Resp 18 07/24/19 09:00 BP 132/57 L 07/24/19 09:00 Pulse Ox 97 07/23/19 20:52 Weight - Most Recent: 49.8 kg I&O - Last 24 Hours: Intake & Output 07/23/19 07/24/19 07/24/19 22:59 06:59 14:59 Intake Total 1600 Balance 1600 Med Orders - Current: Current Medications Acetaminophen (Tylenol) 325 mg PO Q4H PRN PRN Reason: Pain (Mild 1-3)/fever Last Admin: 07/24/19 08:14 Dose: 325 mg Hydrocodone Bitart/Acetaminophen ([place] 325-5 Mg) 1 tab PO Q4H PRN PRN Reason: Pain (moderate 4-6) Last Admin: 07/24/19 08:13 Dose: 1 tab Albuterol (Proventil Neb Soln) 2.5 mg NEB Q4H PRN PRN Reason: Shortness Of Breath/wheezing Apixaban (Eliquis) 5 mg PO BID [facility] Last Admin: 07/24/19 08:17 Dose: 5 mg Citalopram Hydrobromide (Celexa) 30 mg PO DAILY [facility] Last Admin: 07/24/19 08:14 Dose: 30 mg Docusate Sodium (Colace) 100 mg PO DAILY [facility] Last Admin: 07/24/19 08:14 Dose: 100 mg Folic Acid (Folic Acid) 1 mg PO DAILY [facility] Last Admin: 07/24/19 08:18 Dose: 1 mg Losartan Potassium (Cozaar) 25 mg PO DAILY [facility] Last Admin: 07/24/19 08:15 Dose: 25 mg Melatonin (Melatonin) 9 mg PO BEDTIME [facility] Last Admin: 07/23/19 20:48 Dose: 9 mg Metoprolol Succinate (Toprol Xl) 25 mg PO DAILY [facility] Last Admin: 07/24/19 08:24 Dose: 25 mg Ondansetron HCl (Zofran) 4 mg IV Q4H PRN PRN Reason: Nausea/Vomiting Phenobarbital (Phenobarbital) 97.2 mg PO BID [facility] Last Admin: 07/24/19 08:18 Dose: 97.2 mg Phenytoin Sodium (Phenytoin) 200 mg PO BID [facility] Last Admin: 07/24/19 08:24 Dose: 200 mg Polyethylene Glycol (Miralax) 17 gm PO DAILY PRN PRN Reason: Constipation Sodium Chloride (Saline Flush) 10 ml FLUSH ASDIRECTED PRN PRN Reason: Keep Vein Open Tamsulosin HCl (Flomax) 0.4 mg PO DAILY [facility] Last Admin: 07/24/19 08:17 Dose: 0.4 mg Thiamine HCl (Vitamin B-1) 100 mg PO DAILY [facility] Last Admin: 07/24/19 08:24 Dose: 100 mg Trazodone HCl (Trazodone) 150 mg PO BEDTIME [facility] Last Admin: 07/23/19 20:48 Dose: 150 mg Discontinued Medications Acetaminophen (Tylenol) 650 mg PO Q4H PRN PRN Reason: Pain (Mild 1-3)/fever Last Admin: 07/21/19 09:19 Dose: 325 mg Acetaminophen (Tylenol) Confirm Administered Dose 325 mg .ROUTE .STK-MED ONE Stop: 07/21/19 01:40 Last Admin: 07/21/19 04:04 Dose: Not Given Acetaminophen (Tylenol) Confirm Administered Dose 325 mg .ROUTE .STK-MED ONE Stop: 07/21/19 05:17 Last Admin: 07/21/19 05:18 Dose: Not Given Gabapentin (Neurontin) 400 mg PO Q8H [facility] Stop: 07/23/19 09:47 Last Admin: 07/21/19 09:20 Dose: 400 mg Haloperidol Lactate (Haldol) 5 mg IM ONETIME ONE Stop: 07/19/19 17:21 Last Admin: 07/19/19 17:25 Dose: 5 mg Haloperidol Lactate (Haldol) 2 mg IVPUSH Q2H PRN PRN Reason: Agitation Last Admin: 07/19/19 21:00 Dose: 2 mg Multivitamins/Minerals 10 ml/Thiamine HCl 100 mg/ Folic Acid 1 mg/ Magnesium Sulfate 3 gm/ Sodium Chloride 1,017.2 mls @ 500 mls/hr IV ASDIRECTED ONE Stop: 07/19/19 17:47 Last Admin: 07/19/19 15:59 Dose: 500 mls/hr Sodium Chloride (Normal Saline) 1,000 mls @ 100 mls/hr IV ASDIRECTED [facility] Last Admin: 07/20/19 04:20 Dose: 100 mls/hr Lorazepam (Ativan) 0 mg IV ASDIRECTED [facility]; Protocol Lorazepam (Ativan) 0 mg PO ASDIRECTED [facility]; Protocol Metoprolol Succinate (Toprol Xl) 25 mg PO DAILY [facility] Stop: 07/20/19 09:15 Last Admin: 07/20/19 08:22 Dose: 25 mg Phenobarbital (Phenobarbital) 200 mg PO NOW STA Stop: 07/19/19 15:34 Last Admin: 07/19/19 16:01 Dose: Not Given Phenobarbital (Phenobarbital) 300 mg PO NOW STA Stop: 07/19/19 15:35 Last Admin: 07/19/19 15:51 Dose: 300 mg Sodium Chloride (Saline Flush) 10 ml FLUSH ASDIRECTED PRN PRN Reason: Keep Vein Open Last Admin: 07/19/19 16:01 Dose: 10 ml - Exam General: Alert, Oriented, Cooperative, No Acute Distress Lungs: Normal Respiratory Effort Cardiovascular: Regular Rhythm GI/Abdominal Exam: Soft, No Distention Extremities: No Pedal Edema Psy/Mental Status: Alert, Normal Affect Sepsis Event Note - Evaluation Sepsis Screening Result: No Definite Risk - Focused Exam Vital Signs: Vital Signs Temp Pulse Pulse Resp BP BP 07/24/19 09:00 36.4 C 72 18 132/57 L 07/24/19 08:24 72 132/57 L 07/24/19 08:15 132/57 L Date Exam was Performed: 07/24/19 Time Exam was Performed: 11:41 - Problem List Review Problem List Initiated/Reviewed/Updated: Yes - Plan Plan:: ASSESSMENT AND PLAN ALCOHOL ABUSE AND DEPENDENCE-no evidence for alcohol withdrawal and vital signs have been stable. Commitment process has been initiated and preliminary hearing was completed today. 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 Stable on his feet so far. SEIZURES-No seizures during the hospital stay. -Continue outpatient medical therapy for seizures MAINTENANCE ISSUES -DVT prophylaxis; apixaban -GI prophylaxis; PPI -Chavarria catheter; not indicated -Nutrition; 2 g sodium diet DISPOSITION-anticipate discharge to inpatient treatment versus potentially home after the hospital stay. Anthony Sotelo MD
[2019-07-24] MEDS: traZODone 50 MG Tab PO SCH (20:40)
[2019-07-24] MEDS: Melatonin 3 MG Tab PO SCH (20:40)
[2019-07-25] MEDS: Acetaminophen/HYDROcodone 325-5 MG Tab PO PRN ×6 (01:53→22:46)
[2019-07-25] MEDS: Acetaminophen 325 MG Tab PO PRN ×5 (01:54→22:46)
[2019-07-25] MEDS: Citalopram 10 MG Tab PO SCH (10:04)
[2019-07-25] MEDS: Folic Acid 1 MG Tab PO SCH (10:04)
[2019-07-25] MEDS: Docusate Sodium 100 MG Cap PO SCH (10:04)
[2019-07-25] MEDS: Apixaban 5 MG Tab PO SCH ×2 (10:05→21:03)
[2019-07-25] MEDS: Losartan 25 MG Tab PO SCH (10:05)
[2019-07-25] MEDS: Tamsulosin 0.4 MG Cap.ER PO SCH (10:05)
[2019-07-25] MEDS: Thiamine 100 MG Tab PO SCH (10:06)
[2019-07-25] MEDS: Phenytoin 100 MG Cap.ER PO SCH ×2 (10:06→21:02)
[2019-07-25] MEDS: Metoprolol Succinate 25 MG Tab.ER PO SCH (10:06)
[2019-07-25] MEDS: PHENobarbital 32.4 MG Tab PO SCH ×2 (10:08→21:02)
--- NOTE | 2019-07-25 10:20 | PCM.PN ---
- General Info Date of Service: 07/25/19 Subjective Update: There were no acute events overnight. Vital signs have been stable. Back pain is bothersome but stable. No behavior issues. - Patient Data Vitals - Most Recent: Last Vital Signs Temp 36.8 C 07/24/19 19:12 Pulse 68 07/25/19 10:06 Resp 18 07/24/19 19:12 BP 124/58 L 07/25/19 10:06 Pulse Ox 97 07/24/19 19:12 Weight - Most Recent: 49.8 kg Med Orders - Current: Current Medications Acetaminophen (Tylenol) 325 mg PO Q4H PRN PRN Reason: Pain (Mild 1-3)/fever Last Admin: 07/25/19 06:00 Dose: 325 mg Hydrocodone Bitart/Acetaminophen ([place] 325-5 Mg) 1 tab PO Q4H PRN PRN Reason: Pain (moderate 4-6) Last Admin: 07/25/19 10:02 Dose: 1 tab Albuterol (Proventil Neb Soln) 2.5 mg NEB Q4H PRN PRN Reason: Shortness Of Breath/wheezing Apixaban (Eliquis) 5 mg PO BID [facility] Last Admin: 07/25/19 10:05 Dose: 5 mg Citalopram Hydrobromide (Celexa) 30 mg PO DAILY [facility] Last Admin: 07/25/19 10:04 Dose: 30 mg Docusate Sodium (Colace) 100 mg PO DAILY [facility] Last Admin: 07/25/19 10:04 Dose: 100 mg Folic Acid (Folic Acid) 1 mg PO DAILY [facility] Last Admin: 07/25/19 10:04 Dose: 1 mg Losartan Potassium (Cozaar) 25 mg PO DAILY [facility] Last Admin: 07/25/19 10:05 Dose: 25 mg Melatonin (Melatonin) 9 mg PO BEDTIME [facility] Last Admin: 07/24/19 20:40 Dose: 9 mg Metoprolol Succinate (Toprol Xl) 25 mg PO DAILY [facility] Last Admin: 07/25/19 10:06 Dose: 25 mg Ondansetron HCl (Zofran) 4 mg IV Q4H PRN PRN Reason: Nausea/Vomiting Phenobarbital (Phenobarbital) 97.2 mg PO BID [facility] Last Admin: 07/25/19 10:08 Dose: 97.2 mg Phenytoin Sodium (Phenytoin) 200 mg PO BID [facility] Last Admin: 07/25/19 10:06 Dose: 200 mg Polyethylene Glycol (Miralax) 17 gm PO DAILY PRN PRN Reason: Constipation Sodium Chloride (Saline Flush) 10 ml FLUSH ASDIRECTED PRN PRN Reason: Keep Vein Open Tamsulosin HCl (Flomax) 0.4 mg PO DAILY [facility] Last Admin: 07/25/19 10:05 Dose: 0.4 mg Thiamine HCl (Vitamin B-1) 100 mg PO DAILY [facility] Last Admin: 07/25/19 10:06 Dose: 100 mg Trazodone HCl (Trazodone) 150 mg PO BEDTIME [facility] Last Admin: 07/24/19 20:40 Dose: 150 mg Discontinued Medications Acetaminophen (Tylenol) 650 mg PO Q4H PRN PRN Reason: Pain (Mild 1-3)/fever Last Admin: 07/21/19 09:19 Dose: 325 mg Acetaminophen (Tylenol) Confirm Administered Dose 325 mg .ROUTE .STK-MED ONE Stop: 07/21/19 01:40 Last Admin: 07/21/19 04:04 Dose: Not Given Acetaminophen (Tylenol) Confirm Administered Dose 325 mg .ROUTE .STK-MED ONE Stop: 07/21/19 05:17 Last Admin: 07/21/19 05:18 Dose: Not Given Gabapentin (Neurontin) 400 mg PO Q8H [facility] Stop: 07/23/19 09:47 Last Admin: 07/21/19 09:20 Dose: 400 mg Haloperidol Lactate (Haldol) 5 mg IM ONETIME ONE Stop: 07/19/19 17:21 Last Admin: 07/19/19 17:25 Dose: 5 mg Haloperidol Lactate (Haldol) 2 mg IVPUSH Q2H PRN PRN Reason: Agitation Last Admin: 07/19/19 21:00 Dose: 2 mg Multivitamins/Minerals 10 ml/Thiamine HCl 100 mg/ Folic Acid 1 mg/ Magnesium Sulfate 3 gm/ Sodium Chloride 1,017.2 mls @ 500 mls/hr IV ASDIRECTED ONE Stop: 07/19/19 17:47 Last Admin: 07/19/19 15:59 Dose: 500 mls/hr Sodium Chloride (Normal Saline) 1,000 mls @ 100 mls/hr IV ASDIRECTED [facility] Last Admin: 07/20/19 04:20 Dose: 100 mls/hr Lorazepam (Ativan) 0 mg IV ASDIRECTED [facility]; Protocol Lorazepam (Ativan) 0 mg PO ASDIRECTED [facility]; Protocol Metoprolol Succinate (Toprol Xl) 25 mg PO DAILY [facility] Stop: 07/20/19 09:15 Last Admin: 07/20/19 08:22 Dose: 25 mg Phenobarbital (Phenobarbital) 200 mg PO NOW STA Stop: 07/19/19 15:34 Last Admin: 07/19/19 16:01 Dose: Not Given Phenobarbital (Phenobarbital) 300 mg PO NOW STA Stop: 07/19/19 15:35 Last Admin: 07/19/19 15:51 Dose: 300 mg Sodium Chloride (Saline Flush) 10 ml FLUSH ASDIRECTED PRN PRN Reason: Keep Vein Open Last Admin: 07/19/19 16:01 Dose: 10 ml - Exam Quality Assessment: No: Supplemental Oxygen General: Alert, Oriented, Cooperative, No Acute Distress Lungs: Normal Respiratory Effort GI/Abdominal Exam: Soft, No Distention Extremities: No Pedal Edema Psy/Mental Status: Alert, Normal Affect Sepsis Event Note - Evaluation Sepsis Screening Result: No Definite Risk - Focused Exam Vital Signs: Vital Signs Pulse BP 07/25/19 10:06 68 124/58 L 07/25/19 10:05 124/58 L Date Exam was Performed: 07/25/19 Time Exam was Performed: 11:16 - Problem List Review Problem List Initiated/Reviewed/Updated: Yes - My Orders Last 24 Hours: My Active Orders 07/24/19 12:02 Communication Order [RC] ROUTINE - Plan Plan:: ASSESSMENT AND PLAN ALCOHOL ABUSE AND DEPENDENCE-stable. Commitment process has been initiated and preliminary hearing was completed 07/24. 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 Stable on his feet and getting around independently. -Continue physical therapy SEIZURES-No seizures during the hospital stay. -Continue outpatient medical therapy for seizures MAINTENANCE ISSUES -DVT prophylaxis; apixaban -GI prophylaxis; PPI -Chavarria catheter; not indicated -Nutrition; 2 g sodium diet DISPOSITION-anticipate discharge to inpatient treatment versus potentially home after the hospital stay. Anthony Sotelo MD
[2019-07-25] MEDS: Melatonin 3 MG Tab PO SCH (21:02)
[2019-07-25] MEDS: traZODone 50 MG Tab PO SCH (21:02)
[2019-07-26] MEDS: Acetaminophen 325 MG Tab PO PRN ×5 (02:27→18:37)
[2019-07-26] MEDS: Acetaminophen/HYDROcodone 325-5 MG Tab PO PRN ×5 (02:27→18:38)
[2019-07-26] MEDS: Phenytoin 100 MG Cap.ER PO SCH ×2 (08:42→21:31)
[2019-07-26] MEDS: Citalopram 10 MG Tab PO SCH (08:42)
[2019-07-26] MEDS: Docusate Sodium 100 MG Cap PO SCH (08:42)
[2019-07-26] MEDS: Apixaban 5 MG Tab PO SCH ×2 (08:43→21:30)
[2019-07-26] MEDS: Losartan 25 MG Tab PO SCH (08:43)
[2019-07-26] MEDS: Tamsulosin 0.4 MG Cap.ER PO SCH (08:43)
[2019-07-26] MEDS: Metoprolol Succinate 25 MG Tab.ER PO SCH (08:44)
[2019-07-26] MEDS: Folic Acid 1 MG Tab PO SCH (08:44)
[2019-07-26] MEDS: Thiamine 100 MG Tab PO SCH (08:44)
[2019-07-26] MEDS: PHENobarbital 32.4 MG Tab PO SCH ×2 (08:46→21:30)
--- NOTE | 2019-07-26 11:05 | PCM.PN ---
- General Info Date of Service: 07/26/19 Subjective Update: No acute events overnight. Patient has been stable. No behavior issues. He has been up and walking around. Chronic back and leg pain is stable. Functional Status: Reports: Pain Controlled, Tolerating Diet - Patient Data Vitals - Most Recent: Last Vital Signs Temp 35.7 C 07/26/19 07:00 Pulse 86 07/26/19 08:44 Resp 18 07/26/19 07:00 BP 133/58 L 07/26/19 08:44 Pulse Ox 97 07/25/19 19:00 Weight - Most Recent: 49.8 kg I&O - Last 24 Hours: Intake & Output 07/25/19 07/26/19 07/26/19 22:59 06:59 14:59 Intake Total 1600 Balance 1600 Med Orders - Current: Current Medications Acetaminophen (Tylenol) 325 mg PO Q4H PRN PRN Reason: Pain (Mild 1-3)/fever Last Admin: 07/26/19 10:26 Dose: 325 mg Hydrocodone Bitart/Acetaminophen ([place] 325-5 Mg) 1 tab PO Q4H PRN PRN Reason: Pain (moderate 4-6) Last Admin: 07/26/19 10:25 Dose: 1 tab Albuterol (Proventil Neb Soln) 2.5 mg NEB Q4H PRN PRN Reason: Shortness Of Breath/wheezing Apixaban (Eliquis) 5 mg PO BID [facility] Last Admin: 07/26/19 08:43 Dose: 5 mg Citalopram Hydrobromide (Celexa) 30 mg PO DAILY [facility] Last Admin: 07/26/19 08:42 Dose: 30 mg Docusate Sodium (Colace) 100 mg PO DAILY [facility] Last Admin: 07/26/19 08:42 Dose: 100 mg Folic Acid (Folic Acid) 1 mg PO DAILY [facility] Last Admin: 07/26/19 08:44 Dose: 1 mg Losartan Potassium (Cozaar) 25 mg PO DAILY [facility] Last Admin: 07/26/19 08:43 Dose: 25 mg Melatonin (Melatonin) 9 mg PO BEDTIME [facility] Last Admin: 07/25/19 21:02 Dose: 9 mg Metoprolol Succinate (Toprol Xl) 25 mg PO DAILY [facility] Last Admin: 07/26/19 08:44 Dose: 25 mg Ondansetron HCl (Zofran) 4 mg IV Q4H PRN PRN Reason: Nausea/Vomiting Phenobarbital (Phenobarbital) 97.2 mg PO BID [facility] Last Admin: 07/26/19 08:46 Dose: 97.2 mg Phenytoin Sodium (Phenytoin) 200 mg PO BID [facility] Last Admin: 07/26/19 08:42 Dose: 200 mg Polyethylene Glycol (Miralax) 17 gm PO DAILY PRN PRN Reason: Constipation Sodium Chloride (Saline Flush) 10 ml FLUSH ASDIRECTED PRN PRN Reason: Keep Vein Open Tamsulosin HCl (Flomax) 0.4 mg PO DAILY [facility] Last Admin: 07/26/19 08:43 Dose: 0.4 mg Thiamine HCl (Vitamin B-1) 100 mg PO DAILY [facility] Last Admin: 07/26/19 08:44 Dose: 100 mg Trazodone HCl (Trazodone) 150 mg PO BEDTIME [facility] Last Admin: 07/25/19 21:02 Dose: 150 mg Discontinued Medications Acetaminophen (Tylenol) 650 mg PO Q4H PRN PRN Reason: Pain (Mild 1-3)/fever Last Admin: 07/21/19 09:19 Dose: 325 mg Acetaminophen (Tylenol) Confirm Administered Dose 325 mg .ROUTE .STK-MED ONE Stop: 07/21/19 01:40 Last Admin: 07/21/19 04:04 Dose: Not Given Acetaminophen (Tylenol) Confirm Administered Dose 325 mg .ROUTE .STK-MED ONE Stop: 07/21/19 05:17 Last Admin: 07/21/19 05:18 Dose: Not Given Gabapentin (Neurontin) 400 mg PO Q8H [facility] Stop: 07/23/19 09:47 Last Admin: 07/21/19 09:20 Dose: 400 mg Haloperidol Lactate (Haldol) 5 mg IM ONETIME ONE Stop: 07/19/19 17:21 Last Admin: 07/19/19 17:25 Dose: 5 mg Haloperidol Lactate (Haldol) 2 mg IVPUSH Q2H PRN PRN Reason: Agitation Last Admin: 07/19/19 21:00 Dose: 2 mg Multivitamins/Minerals 10 ml/Thiamine HCl 100 mg/ Folic Acid 1 mg/ Magnesium Sulfate 3 gm/ Sodium Chloride 1,017.2 mls @ 500 mls/hr IV ASDIRECTED ONE Stop: 07/19/19 17:47 Last Admin: 07/19/19 15:59 Dose: 500 mls/hr Sodium Chloride (Normal Saline) 1,000 mls @ 100 mls/hr IV ASDIRECTED [facility] Last Admin: 07/20/19 04:20 Dose: 100 mls/hr Lorazepam (Ativan) 0 mg IV ASDIRECTED [facility]; Protocol Lorazepam (Ativan) 0 mg PO ASDIRECTED [facility]; Protocol Metoprolol Succinate (Toprol Xl) 25 mg PO DAILY [facility] Stop: 07/20/19 09:15 Last Admin: 07/20/19 08:22 Dose: 25 mg Phenobarbital (Phenobarbital) 200 mg PO NOW STA Stop: 07/19/19 15:34 Last Admin: 07/19/19 16:01 Dose: Not Given Phenobarbital (Phenobarbital) 300 mg PO NOW STA Stop: 07/19/19 15:35 Last Admin: 07/19/19 15:51 Dose: 300 mg Sodium Chloride (Saline Flush) 10 ml FLUSH ASDIRECTED PRN PRN Reason: Keep Vein Open Last Admin: 07/19/19 16:01 Dose: 10 ml - Exam Quality Assessment: No: Supplemental Oxygen General: Alert, Oriented, Cooperative, No Acute Distress Lungs: Normal Respiratory Effort GI/Abdominal Exam: Soft, No Distention Extremities: Pedal Edema (mild right leg, none on left ) Psy/Mental Status: Alert, Normal Affect Sepsis Event Note - Evaluation Sepsis Screening Result: No Definite Risk - Focused Exam Vital Signs: Vital Signs Temp Pulse Pulse Resp BP BP 07/26/19 08:44 86 133/58 L 07/26/19 08:43 138/65 07/26/19 07:00 35.7 C 76 18 133/58 L Date Exam was Performed: 07/26/19 Time Exam was Performed: 13:48 - Problem List Review Problem List Initiated/Reviewed/Updated: Yes - Plan Plan:: ASSESSMENT AND PLAN ALCOHOL ABUSE AND DEPENDENCE-stable. Commitment process has been initiated and preliminary hearing was completed 07/24. 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 Stable on his feet and getting around independently. -Continue physical therapy SEIZURES-No seizures during the hospital stay. -Continue outpatient meds HISTORY OF DVT-remote history. Chronically anticoagulated. -Continue apixaban MAINTENANCE ISSUES -DVT prophylaxis; apixaban -GI prophylaxis; PPI -Chavarria catheter; not indicated -Nutrition; 2 g sodium diet DISPOSITION-anticipate discharge to inpatient treatment versus potentially home after the hospital stay. Anthony Sotelo MD
[2019-07-26] MEDS: Melatonin 3 MG Tab PO SCH (21:31)
[2019-07-26] MEDS: traZODone 50 MG Tab PO SCH (21:31)
[2019-07-27] MEDS: Acetaminophen 325 MG Tab PO PRN ×5 (02:54→19:15)
[2019-07-27] MEDS: Acetaminophen/HYDROcodone 325-5 MG Tab PO PRN ×2 (02:55→07:03)
[2019-07-27] MEDS: Folic Acid 1 MG Tab PO SCH (08:47)
[2019-07-27] MEDS: Thiamine 100 MG Tab PO SCH (08:47)
[2019-07-27] MEDS: Citalopram 10 MG Tab PO SCH (08:47)
[2019-07-27] MEDS: Apixaban 5 MG Tab PO SCH ×2 (08:47→20:55)
[2019-07-27] MEDS: Metoprolol Succinate 25 MG Tab.ER PO SCH (08:48)
[2019-07-27] MEDS: Losartan 25 MG Tab PO SCH (08:48)
[2019-07-27] MEDS: Tamsulosin 0.4 MG Cap.ER PO SCH (08:48)
[2019-07-27] MEDS: Phenytoin 100 MG Cap.ER PO SCH ×2 (08:48→20:54)
[2019-07-27] MEDS: Docusate Sodium 100 MG Cap PO SCH (08:49)
[2019-07-27] MEDS: PHENobarbital 32.4 MG Tab PO SCH ×2 (09:25→20:54)
--- NOTE | 2019-07-27 09:41 | PCM.PN ---
- General Info Date of Service: 07/27/19 Subjective Update: No acute events overnight. No behavior issues. No fevers. Up and walking around with a walker. Functional Status: Reports: Tolerating Diet - Review of Systems General: Denies: Fever - Patient Data Vitals - Most Recent: Last Vital Signs Temp 36.2 C 07/27/19 07:33 Pulse 94 07/27/19 08:48 Resp 20 07/27/19 07:33 BP 133/47 L 07/27/19 08:48 Pulse Ox 95 07/27/19 07:33 Weight - Most Recent: 49.8 kg I&O - Last 24 Hours: Intake & Output 07/26/19 07/27/19 07/27/19 22:59 06:59 14:59 Intake Total 1700 Balance 1700 Med Orders - Current: Current Medications Acetaminophen (Tylenol) 325 mg PO Q4H PRN PRN Reason: Pain (Mild 1-3)/fever Last Admin: 07/27/19 07:03 Dose: 325 mg Albuterol (Proventil Neb Soln) 2.5 mg NEB Q4H PRN PRN Reason: Shortness Of Breath/wheezing Apixaban (Eliquis) 5 mg PO BID [facility] Last Admin: 07/27/19 08:47 Dose: 5 mg Citalopram Hydrobromide (Celexa) 30 mg PO DAILY [facility] Last Admin: 07/27/19 08:47 Dose: 30 mg Docusate Sodium (Colace) 100 mg PO DAILY [facility] Last Admin: 07/27/19 08:49 Dose: 100 mg Folic Acid (Folic Acid) 1 mg PO DAILY [facility] Last Admin: 07/27/19 08:47 Dose: 1 mg Losartan Potassium (Cozaar) 25 mg PO DAILY [facility] Last Admin: 07/27/19 08:48 Dose: 25 mg Melatonin (Melatonin) 9 mg PO BEDTIME [facility] Last Admin: 07/26/19 21:31 Dose: 9 mg Metoprolol Succinate (Toprol Xl) 25 mg PO DAILY [facility] Last Admin: 07/27/19 08:48 Dose: 25 mg Ondansetron HCl (Zofran) 4 mg IV Q4H PRN PRN Reason: Nausea/Vomiting Phenobarbital (Phenobarbital) 97.2 mg PO BID [facility] Last Admin: 07/27/19 09:25 Dose: 97.2 mg Phenytoin Sodium (Phenytoin) 200 mg PO BID [facility] Last Admin: 07/27/19 08:48 Dose: 200 mg Polyethylene Glycol (Miralax) 17 gm PO DAILY PRN PRN Reason: Constipation Sodium Chloride (Saline Flush) 10 ml FLUSH ASDIRECTED PRN PRN Reason: Keep Vein Open Tamsulosin HCl (Flomax) 0.4 mg PO DAILY [facility] Last Admin: 07/27/19 08:48 Dose: 0.4 mg Thiamine HCl (Vitamin B-1) 100 mg PO DAILY [facility] Last Admin: 07/27/19 08:47 Dose: 100 mg Trazodone HCl (Trazodone) 150 mg PO BEDTIME [facility] Last Admin: 07/26/19 21:31 Dose: 150 mg Discontinued Medications Acetaminophen (Tylenol) 650 mg PO Q4H PRN PRN Reason: Pain (Mild 1-3)/fever Last Admin: 07/21/19 09:19 Dose: 325 mg Acetaminophen (Tylenol) Confirm Administered Dose 325 mg .ROUTE .STK-MED ONE Stop: 07/21/19 01:40 Last Admin: 07/21/19 04:04 Dose: Not Given Acetaminophen (Tylenol) Confirm Administered Dose 325 mg .ROUTE .STK-MED ONE Stop: 07/21/19 05:17 Last Admin: 07/21/19 05:18 Dose: Not Given Hydrocodone Bitart/Acetaminophen ([place] 325-5 Mg) 1 tab PO Q4H PRN PRN Reason: Pain (moderate 4-6) Last Admin: 07/27/19 07:03 Dose: 1 tab Gabapentin (Neurontin) 400 mg PO Q8H [facility] Stop: 07/23/19 09:47 Last Admin: 07/21/19 09:20 Dose: 400 mg Haloperidol Lactate (Haldol) 5 mg IM ONETIME ONE Stop: 07/19/19 17:21 Last Admin: 07/19/19 17:25 Dose: 5 mg Haloperidol Lactate (Haldol) 2 mg IVPUSH Q2H PRN PRN Reason: Agitation Last Admin: 07/19/19 21:00 Dose: 2 mg Multivitamins/Minerals 10 ml/Thiamine HCl 100 mg/ Folic Acid 1 mg/ Magnesium Sulfate 3 gm/ Sodium Chloride 1,017.2 mls @ 500 mls/hr IV ASDIRECTED ONE Stop: 07/19/19 17:47 Last Admin: 07/19/19 15:59 Dose: 500 mls/hr Sodium Chloride (Normal Saline) 1,000 mls @ 100 mls/hr IV ASDIRECTED [facility] Last Admin: 07/20/19 04:20 Dose: 100 mls/hr Lorazepam (Ativan) 0 mg IV ASDIRECTED [facility]; Protocol Lorazepam (Ativan) 0 mg PO ASDIRECTED [facility]; Protocol Metoprolol Succinate (Toprol Xl) 25 mg PO DAILY [facility] Stop: 07/20/19 09:15 Last Admin: 07/20/19 08:22 Dose: 25 mg Phenobarbital (Phenobarbital) 200 mg PO NOW STA Stop: 07/19/19 15:34 Last Admin: 07/19/19 16:01 Dose: Not Given Phenobarbital (Phenobarbital) 300 mg PO NOW STA Stop: 07/19/19 15:35 Last Admin: 07/19/19 15:51 Dose: 300 mg Sodium Chloride (Saline Flush) 10 ml FLUSH ASDIRECTED PRN PRN Reason: Keep Vein Open Last Admin: 07/19/19 16:01 Dose: 10 ml - Exam Quality Assessment: No: Supplemental Oxygen General: Alert, Oriented, Cooperative, No Acute Distress Lungs: Normal Respiratory Effort GI/Abdominal Exam: Soft, No Distention Extremities: Pedal Edema (right lower leg) Psy/Mental Status: Alert, Normal Affect Sepsis Event Note - Evaluation Sepsis Screening Result: No Definite Risk - Focused Exam Vital Signs: Vital Signs Temp Pulse Pulse Resp BP BP Pulse Ox 07/27/19 08:48 94 133/43 L 07/27/19 07:33 36.2 C 68 20 138/52 L 95 Date Exam was Performed: 07/27/19 Time Exam was Performed: 13:28 - Problem List Review Problem List Initiated/Reviewed/Updated: Yes - My Orders Last 24 Hours: My Active Orders 07/27/19 11:00 Acetaminophen/HYDROcodone [[place] 325-10 MG] 1 tab PO Q4H PRN - Plan Plan:: ASSESSMENT AND PLAN ALCOHOL ABUSE AND DEPENDENCE-stable. Commitment process has been initiated and preliminary hearing was completed 07/24. No behavior issues. 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 Stable on his feet and getting around independently. -Continue physical therapy SEIZURES-No seizures during the hospital stay. -Continue outpatient meds HISTORY OF DVT-remote history. Chronically anticoagulated. -Continue apixaban MAINTENANCE ISSUES -DVT prophylaxis; apixaban -GI prophylaxis; PPI -Chavarria catheter; not indicated -Nutrition; 2 g sodium diet DISPOSITION-anticipate discharge to inpatient treatment versus potentially home after the hospital stay. Anthony Sotelo MD
[2019-07-27] MEDS: Acetaminophen/HYDROcodone 325-10 MG Tab PO PRN ×3 (11:13→19:15)
[2019-07-27] MEDS: Melatonin 3 MG Tab PO SCH (20:54)
[2019-07-27] MEDS: traZODone 50 MG Tab PO SCH (20:55)
[2019-07-28] MEDS: Acetaminophen/HYDROcodone 325-10 MG Tab PO PRN ×5 (02:11→18:46)
[2019-07-28] MEDS: Acetaminophen 325 MG Tab PO PRN ×5 (02:12→18:46)
[2019-07-28] MEDS: Folic Acid 1 MG Tab PO SCH (08:32)
[2019-07-28] MEDS: Apixaban 5 MG Tab PO SCH ×2 (08:32→20:35)
[2019-07-28] MEDS: Tamsulosin 0.4 MG Cap.ER PO SCH (08:32)
[2019-07-28] MEDS: Thiamine 100 MG Tab PO SCH (08:33)
[2019-07-28] MEDS: Citalopram 10 MG Tab PO SCH (08:33)
[2019-07-28] MEDS: Phenytoin 100 MG Cap.ER PO SCH ×2 (08:35→20:35)
[2019-07-28] MEDS: Docusate Sodium 100 MG Cap PO SCH (08:35)
[2019-07-28] MEDS: PHENobarbital 32.4 MG Tab PO SCH ×2 (08:38→20:34)
[2019-07-28] MEDS: Metoprolol Succinate 25 MG Tab.ER PO SCH (08:39)
[2019-07-28] MEDS: Losartan 25 MG Tab PO SCH (08:40)
--- NOTE | 2019-07-28 10:12 | PCM.PN ---
- General Info Date of Service: 07/28/19 Subjective Update: Mr. Degroot has been stable since yesterday. Expresses frustration with his current situation and court hold. Functional Status: Reports: Tolerating Diet, Ambulating, Urinating - Review of Systems General: Reports: No Symptoms Pulmonary: Reports: No Symptoms Cardiovascular: Reports: No Symptoms Gastrointestinal: Reports: No Symptoms - Patient Data Vitals - Most Recent: Last Vital Signs Temp 96.5 F 07/28/19 07:00 Pulse 60 07/28/19 08:39 Resp 16 07/28/19 07:00 BP 145/46 H 07/28/19 08:40 Pulse Ox 97 07/28/19 07:00 Weight - Most Recent: 109 lb 12.643 oz Med Orders - Current: Current Medications Acetaminophen (Tylenol) 325 mg PO Q4H PRN PRN Reason: Pain (Mild 1-3)/fever Last Admin: 07/28/19 06:12 Dose: 325 mg Hydrocodone Bitart/Acetaminophen ([place] 325-10 Mg) 1 tab PO Q4H PRN PRN Reason: Pain (moderate 4-6) Last Admin: 07/28/19 06:13 Dose: 1 tab Albuterol (Proventil Neb Soln) 2.5 mg NEB Q4H PRN PRN Reason: Shortness Of Breath/wheezing Apixaban (Eliquis) 5 mg PO BID [facility] Last Admin: 07/28/19 08:32 Dose: 5 mg Citalopram Hydrobromide (Celexa) 30 mg PO DAILY [facility] Last Admin: 07/28/19 08:33 Dose: 30 mg Docusate Sodium (Colace) 100 mg PO DAILY [facility] Last Admin: 07/28/19 08:35 Dose: 100 mg Folic Acid (Folic Acid) 1 mg PO DAILY [facility] Last Admin: 07/28/19 08:32 Dose: 1 mg Losartan Potassium (Cozaar) 25 mg PO DAILY [facility] Last Admin: 07/28/19 08:40 Dose: 25 mg Melatonin (Melatonin) 9 mg PO BEDTIME [facility] Last Admin: 07/27/19 20:54 Dose: 9 mg Metoprolol Succinate (Toprol Xl) 25 mg PO DAILY [facility] Last Admin: 07/28/19 08:39 Dose: 25 mg Ondansetron HCl (Zofran) 4 mg IV Q4H PRN PRN Reason: Nausea/Vomiting Phenobarbital (Phenobarbital) 97.2 mg PO BID [facility] Last Admin: 07/28/19 08:38 Dose: 97.2 mg Phenytoin Sodium (Phenytoin) 200 mg PO BID [facility] Last Admin: 07/28/19 08:35 Dose: 200 mg Polyethylene Glycol (Miralax) 17 gm PO DAILY PRN PRN Reason: Constipation Sodium Chloride (Saline Flush) 10 ml FLUSH ASDIRECTED PRN PRN Reason: Keep Vein Open Tamsulosin HCl (Flomax) 0.4 mg PO DAILY [facility] Last Admin: 07/28/19 08:32 Dose: 0.4 mg Thiamine HCl (Vitamin B-1) 100 mg PO DAILY [facility] Last Admin: 07/28/19 08:33 Dose: 100 mg Trazodone HCl (Trazodone) 150 mg PO BEDTIME [facility] Last Admin: 07/27/19 20:55 Dose: 150 mg Discontinued Medications Acetaminophen (Tylenol) 650 mg PO Q4H PRN PRN Reason: Pain (Mild 1-3)/fever Last Admin: 07/21/19 09:19 Dose: 325 mg Acetaminophen (Tylenol) Confirm Administered Dose 325 mg .ROUTE .STK-MED ONE Stop: 07/21/19 01:40 Last Admin: 07/21/19 04:04 Dose: Not Given Acetaminophen (Tylenol) Confirm Administered Dose 325 mg .ROUTE .STK-MED ONE Stop: 07/21/19 05:17 Last Admin: 07/21/19 05:18 Dose: Not Given Hydrocodone Bitart/Acetaminophen ([place] 325-5 Mg) 1 tab PO Q4H PRN PRN Reason: Pain (moderate 4-6) Last Admin: 07/27/19 07:03 Dose: 1 tab Gabapentin (Neurontin) 400 mg PO Q8H [facility] Stop: 07/23/19 09:47 Last Admin: 07/21/19 09:20 Dose: 400 mg Haloperidol Lactate (Haldol) 5 mg IM ONETIME ONE Stop: 07/19/19 17:21 Last Admin: 07/19/19 17:25 Dose: 5 mg Haloperidol Lactate (Haldol) 2 mg IVPUSH Q2H PRN PRN Reason: Agitation Last Admin: 07/19/19 21:00 Dose: 2 mg Multivitamins/Minerals 10 ml/Thiamine HCl 100 mg/ Folic Acid 1 mg/ Magnesium Sulfate 3 gm/ Sodium Chloride 1,017.2 mls @ 500 mls/hr IV ASDIRECTED ONE Stop: 07/19/19 17:47 Last Admin: 07/19/19 15:59 Dose: 500 mls/hr Sodium Chloride (Normal Saline) 1,000 mls @ 100 mls/hr IV ASDIRECTED [facility] Last Admin: 07/20/19 04:20 Dose: 100 mls/hr Lorazepam (Ativan) 0 mg IV ASDIRECTED [facility]ITTANY; Protocol Lorazepam (Ativan) 0 mg PO ASDIRECTED [facility]; Protocol Metoprolol Succinate (Toprol Xl) 25 mg PO DAILY [facility] Stop: 07/20/19 09:15 Last Admin: 07/20/19 08:22 Dose: 25 mg Phenobarbital (Phenobarbital) 200 mg PO NOW STA Stop: 07/19/19 15:34 Last Admin: 07/19/19 16:01 Dose: Not Given Phenobarbital (Phenobarbital) 300 mg PO NOW STA Stop: 07/19/19 15:35 Last Admin: 07/19/19 15:51 Dose: 300 mg Sodium Chloride (Saline Flush) 10 ml FLUSH ASDIRECTED PRN PRN Reason: Keep Vein Open Last Admin: 07/19/19 16:01 Dose: 10 ml - Exam General: Alert, Oriented, Cooperative, No Acute Distress Lungs: Clear to Auscultation, Normal Respiratory Effort Cardiovascular: Regular Rate, Regular Rhythm, No Murmurs GI/Abdominal Exam: Soft, Non-Tender, No Organomegaly, No Distention Extremities: Non-Tender, No Pedal Edema Sepsis Event Note - Evaluation Sepsis Screening Result: No Definite Risk - Focused Exam Vital Signs: Vital Signs Temp Pulse Pulse Resp BP BP Pulse Ox 07/28/19 08:40 145/46 H 07/28/19 08:39 60 145/46 H 07/28/19 07:00 96.5 F 54 L 16 135/54 L 97 Date Exam was Performed: 07/28/19 Time Exam was Performed: 10:09 - Problem List Review Problem List Initiated/Reviewed/Updated: Yes - Plan Plan:: ASSESSMENT AND PLAN ALCOHOL ABUSE AND DEPENDENCE-stable. Commitment process has been initiated and preliminary hearing was completed 07/24. No behavior issues. 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 More stable now that he is not consuming alcohol, ambulating with use of his walker. -Continue physical therapy SEIZURES-No seizures during the hospital stay. -Continue outpatient meds HISTORY OF DVT-remote history. Chronically anticoagulated. -Continue apixaban MAINTENANCE ISSUES -DVT prophylaxis; apixaban -GI prophylaxis; PPI -Chavarria catheter; not indicated -Nutrition; 2 g sodium diet DISPOSITION-anticipate discharge to inpatient treatment versus potentially home after the hospital stay.
[2019-07-28] MEDS: Melatonin 3 MG Tab PO SCH (20:35)
[2019-07-28] MEDS: traZODone 50 MG Tab PO SCH (20:35)
[2019-07-29] MEDS: Acetaminophen 325 MG Tab PO PRN ×6 (01:11→21:32)
[2019-07-29] MEDS: Acetaminophen/HYDROcodone 325-10 MG Tab PO PRN ×6 (01:11→21:31)
[2019-07-29] MEDS: Citalopram 10 MG Tab PO SCH (08:21)
[2019-07-29] MEDS: Folic Acid 1 MG Tab PO SCH (08:21)
[2019-07-29] MEDS: Losartan 25 MG Tab PO SCH (08:21)
[2019-07-29] MEDS: Apixaban 5 MG Tab PO SCH ×2 (08:21→21:31)
[2019-07-29] MEDS: Phenytoin 100 MG Cap.ER PO SCH ×2 (08:21→21:31)
[2019-07-29] MEDS: Tamsulosin 0.4 MG Cap.ER PO SCH (08:21)
[2019-07-29] MEDS: PHENobarbital 32.4 MG Tab PO SCH ×2 (08:21→21:31)
[2019-07-29] MEDS: Thiamine 100 MG Tab PO SCH (08:21)
[2019-07-29] MEDS: Docusate Sodium 100 MG Cap PO SCH (08:22)
[2019-07-29] MEDS: Metoprolol Succinate 25 MG Tab.ER PO SCH (08:22)
--- NOTE | 2019-07-29 09:11 | PCM.PN ---
- General Info Date of Service: 07/29/19 Subjective Update: Mr. Degroot has been stable since yesterday. Vital signs have been good and he is remained afebrile. Functional Status: Reports: Tolerating Diet, Ambulating, Urinating - Review of Systems Pulmonary: Reports: No Symptoms Cardiovascular: Reports: No Symptoms Gastrointestinal: Reports: No Symptoms - Patient Data Vitals - Most Recent: Last Vital Signs Temp 97.5 F 07/29/19 08:19 Pulse 64 07/29/19 08:22 Resp 20 07/29/19 08:19 BP 149/53 H 07/29/19 08:22 Pulse Ox 95 07/29/19 08:19 Weight - Most Recent: 109 lb 12.643 oz Med Orders - Current: Current Medications Acetaminophen (Tylenol) 325 mg PO Q4H PRN PRN Reason: Pain (Mild 1-3)/fever Last Admin: 07/29/19 05:17 Dose: 325 mg Hydrocodone Bitart/Acetaminophen ([place] 325-10 Mg) 1 tab PO Q4H PRN PRN Reason: Pain (moderate 4-6) Last Admin: 07/29/19 05:17 Dose: 1 tab Albuterol (Proventil Neb Soln) 2.5 mg NEB Q4H PRN PRN Reason: Shortness Of Breath/wheezing Apixaban (Eliquis) 5 mg PO BID [facility] Last Admin: 07/29/19 08:21 Dose: 5 mg Citalopram Hydrobromide (Celexa) 30 mg PO DAILY [facility] Last Admin: 07/29/19 08:21 Dose: 30 mg Docusate Sodium (Colace) 100 mg PO DAILY [facility] Last Admin: 07/29/19 08:22 Dose: 100 mg Folic Acid (Folic Acid) 1 mg PO DAILY [facility] Last Admin: 07/29/19 08:21 Dose: 1 mg Losartan Potassium (Cozaar) 25 mg PO DAILY [facility] Last Admin: 07/29/19 08:21 Dose: 25 mg Melatonin (Melatonin) 9 mg PO BEDTIME [facility] Last Admin: 07/28/19 20:35 Dose: 9 mg Metoprolol Succinate (Toprol Xl) 25 mg PO DAILY [facility] Last Admin: 07/29/19 08:22 Dose: 25 mg Ondansetron HCl (Zofran) 4 mg IV Q4H PRN PRN Reason: Nausea/Vomiting Phenobarbital (Phenobarbital) 97.2 mg PO BID [facility] Last Admin: 07/29/19 08:21 Dose: 97.2 mg Phenytoin Sodium (Phenytoin) 200 mg PO BID [facility] Last Admin: 07/29/19 08:21 Dose: 200 mg Polyethylene Glycol (Miralax) 17 gm PO DAILY PRN PRN Reason: Constipation Sodium Chloride (Saline Flush) 10 ml FLUSH ASDIRECTED PRN PRN Reason: Keep Vein Open Tamsulosin HCl (Flomax) 0.4 mg PO DAILY [facility] Last Admin: 07/29/19 08:21 Dose: 0.4 mg Thiamine HCl (Vitamin B-1) 100 mg PO DAILY [facility] Last Admin: 07/29/19 08:21 Dose: 100 mg Trazodone HCl (Trazodone) 150 mg PO BEDTIME [facility] Last Admin: 07/28/19 20:35 Dose: 150 mg Discontinued Medications Acetaminophen (Tylenol) 650 mg PO Q4H PRN PRN Reason: Pain (Mild 1-3)/fever Last Admin: 07/21/19 09:19 Dose: 325 mg Acetaminophen (Tylenol) Confirm Administered Dose 325 mg .ROUTE .STK-MED ONE Stop: 07/21/19 01:40 Last Admin: 07/21/19 04:04 Dose: Not Given Acetaminophen (Tylenol) Confirm Administered Dose 325 mg .ROUTE .STK-MED ONE Stop: 07/21/19 05:17 Last Admin: 07/21/19 05:18 Dose: Not Given Hydrocodone Bitart/Acetaminophen ([place] 325-5 Mg) 1 tab PO Q4H PRN PRN Reason: Pain (moderate 4-6) Last Admin: 07/27/19 07:03 Dose: 1 tab Gabapentin (Neurontin) 400 mg PO Q8H [facility] Stop: 07/23/19 09:47 Last Admin: 07/21/19 09:20 Dose: 400 mg Haloperidol Lactate (Haldol) 5 mg IM ONETIME ONE Stop: 07/19/19 17:21 Last Admin: 07/19/19 17:25 Dose: 5 mg Haloperidol Lactate (Haldol) 2 mg IVPUSH Q2H PRN PRN Reason: Agitation Last Admin: 07/19/19 21:00 Dose: 2 mg Multivitamins/Minerals 10 ml/Thiamine HCl 100 mg/ Folic Acid 1 mg/ Magnesium Sulfate 3 gm/ Sodium Chloride 1,017.2 mls @ 500 mls/hr IV ASDIRECTED ONE Stop: 07/19/19 17:47 Last Admin: 07/19/19 15:59 Dose: 500 mls/hr Sodium Chloride (Normal Saline) 1,000 mls @ 100 mls/hr IV ASDIRECTED [facility] Last Admin: 07/20/19 04:20 Dose: 100 mls/hr Lorazepam (Ativan) 0 mg IV ASDIRECTED [facility]; Protocol Lorazepam (Ativan) 0 mg PO ASDIRECTED [facility]; Protocol Metoprolol Succinate (Toprol Xl) 25 mg PO DAILY [facility] Stop: 07/20/19 09:15 Last Admin: 07/20/19 08:22 Dose: 25 mg Phenobarbital (Phenobarbital) 200 mg PO NOW STA Stop: 07/19/19 15:34 Last Admin: 07/19/19 16:01 Dose: Not Given Phenobarbital (Phenobarbital) 300 mg PO NOW STA Stop: 07/19/19 15:35 Last Admin: 07/19/19 15:51 Dose: 300 mg Sodium Chloride (Saline Flush) 10 ml FLUSH ASDIRECTED PRN PRN Reason: Keep Vein Open Last Admin: 07/19/19 16:01 Dose: 10 ml - Exam General: Alert, Oriented, Cooperative, No Acute Distress Lungs: Clear to Auscultation, Normal Respiratory Effort Cardiovascular: Regular Rate, Regular Rhythm, No Murmurs GI/Abdominal Exam: Soft, Non-Tender, No Organomegaly, No Distention Extremities: Non-Tender, No Pedal Edema Sepsis Event Note - Evaluation Sepsis Screening Result: No Definite Risk - Focused Exam Vital Signs: Vital Signs Temp Pulse Pulse Resp BP BP Pulse Ox 07/29/19 08:22 64 149/53 H 07/29/19 08:21 149/53 H 07/29/19 08:19 97.5 F 64 20 149/53 H 95 Date Exam was Performed: 07/29/19 Time Exam was Performed: 09:07 - Problem List Review Problem List Initiated/Reviewed/Updated: Yes - Plan Plan:: ASSESSMENT AND PLAN ALCOHOL ABUSE AND DEPENDENCE-stable. Commitment process has been initiated and preliminary hearing was completed 07/24. No behavior issues. Stable and awaiting court date. 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 More stable now that he is not consuming alcohol, ambulating with use of his walker. -Continue physical therapy SEIZURES-No seizures during the hospital stay. -Continue outpatient meds HISTORY OF DVT-remote history. Chronically anticoagulated. -Continue apixaban MAINTENANCE ISSUES -DVT prophylaxis; apixaban -GI prophylaxis; PPI -Chavarria catheter; not indicated -Nutrition; 2 g sodium diet DISPOSITION-anticipate discharge to inpatient treatment versus potentially home after the hospital stay.
[2019-07-29] MEDS ORDERED: LORazepam 0.5 MG Tab PO ONE (11:33)
[2019-07-29] MEDS: Melatonin 3 MG Tab PO SCH (21:31)
[2019-07-29] MEDS: traZODone 50 MG Tab PO SCH (21:31)
[2019-07-30] MEDS: Acetaminophen/HYDROcodone 325-10 MG Tab PO PRN ×5 (04:45→20:53)
[2019-07-30] MEDS: Acetaminophen 325 MG Tab PO PRN ×4 (04:45→20:54)
[2019-07-30] MEDS: Losartan 25 MG Tab PO SCH (08:48)
[2019-07-30] MEDS: Apixaban 5 MG Tab PO SCH ×2 (08:48→20:55)
[2019-07-30] MEDS: Folic Acid 1 MG Tab PO SCH (08:49)
[2019-07-30] MEDS: Thiamine 100 MG Tab PO SCH (08:49)
[2019-07-30] MEDS: Metoprolol Succinate 25 MG Tab.ER PO SCH (08:49)
[2019-07-30] MEDS: Tamsulosin 0.4 MG Cap.ER PO SCH (08:49)
[2019-07-30] MEDS: Phenytoin 100 MG Cap.ER PO SCH ×2 (08:49→20:55)
[2019-07-30] MEDS: Citalopram 10 MG Tab PO SCH (08:50)
[2019-07-30] MEDS: Docusate Sodium 100 MG Cap PO SCH (08:50)
[2019-07-30] MEDS: PHENobarbital 32.4 MG Tab PO SCH ×2 (08:52→20:55)
--- NOTE | 2019-07-30 09:12 | PCM.PN ---
- General Info Date of Service: 07/30/19 Subjective Update: Mr. Degroot has been more anxious over the last [address] date and possible commitment. He did experience a panic attack yesterday and received 1 dose of oral lorazepam. He has been stable since then, but remains somewhat anxious. Functional Status: Reports: Tolerating Diet, Ambulating, Urinating - Review of Systems Pulmonary: Reports: No Symptoms Cardiovascular: Reports: No Symptoms Gastrointestinal: Reports: No Symptoms - Patient Data Vitals - Most Recent: Last Vital Signs Temp 97.6 F 07/30/19 08:55 Pulse 60 07/30/19 08:55 Resp 16 07/30/19 08:55 BP 124/62 07/30/19 08:55 Pulse Ox 98 07/30/19 08:55 Weight - Most Recent: 109 lb 12.643 oz Med Orders - Current: Current Medications Acetaminophen (Tylenol) 325 mg PO Q4H PRN PRN Reason: Pain (Mild 1-3)/fever Last Admin: 07/30/19 04:45 Dose: 325 mg Hydrocodone Bitart/Acetaminophen ([place] 325-10 Mg) 1 tab PO Q4H PRN PRN Reason: Pain (moderate 4-6) Last Admin: 07/30/19 08:47 Dose: 1 tab Albuterol (Proventil Neb Soln) 2.5 mg NEB Q4H PRN PRN Reason: Shortness Of Breath/wheezing Apixaban (Eliquis) 5 mg PO BID [facility] Last Admin: 07/30/19 08:48 Dose: 5 mg Citalopram Hydrobromide (Celexa) 30 mg PO DAILY [facility] Last Admin: 07/30/19 08:50 Dose: 30 mg Docusate Sodium (Colace) 100 mg PO DAILY [facility] Last Admin: 07/30/19 08:50 Dose: 100 mg Folic Acid (Folic Acid) 1 mg PO DAILY [facility] Last Admin: 07/30/19 08:49 Dose: 1 mg Losartan Potassium (Cozaar) 25 mg PO DAILY [facility] Last Admin: 07/30/19 08:48 Dose: 25 mg Melatonin (Melatonin) 9 mg PO BEDTIME [facility] Last Admin: 07/29/19 21:31 Dose: 9 mg Metoprolol Succinate (Toprol Xl) 25 mg PO DAILY [facility] Last Admin: 07/30/19 08:49 Dose: 25 mg Ondansetron HCl (Zofran) 4 mg IV Q4H PRN PRN Reason: Nausea/Vomiting Phenobarbital (Phenobarbital) 97.2 mg PO BID [facility] Last Admin: 07/30/19 08:52 Dose: 97.2 mg Phenytoin Sodium (Phenytoin) 200 mg PO BID [facility] Last Admin: 07/30/19 08:49 Dose: 200 mg Polyethylene Glycol (Miralax) 17 gm PO DAILY PRN PRN Reason: Constipation Sodium Chloride (Saline Flush) 10 ml FLUSH ASDIRECTED PRN PRN Reason: Keep Vein Open Tamsulosin HCl (Flomax) 0.4 mg PO DAILY [facility] Last Admin: 07/30/19 08:49 Dose: 0.4 mg Thiamine HCl (Vitamin B-1) 100 mg PO DAILY [facility] Last Admin: 07/30/19 08:49 Dose: 100 mg Trazodone HCl (Trazodone) 150 mg PO BEDTIME [facility] Last Admin: 07/29/19 21:31 Dose: 150 mg Discontinued Medications Acetaminophen (Tylenol) 650 mg PO Q4H PRN PRN Reason: Pain (Mild 1-3)/fever Last Admin: 07/21/19 09:19 Dose: 325 mg Acetaminophen (Tylenol) Confirm Administered Dose 325 mg .ROUTE .STK-MED ONE Stop: 07/21/19 01:40 Last Admin: 07/21/19 04:04 Dose: Not Given Acetaminophen (Tylenol) Confirm Administered Dose 325 mg .ROUTE .STK-MED ONE Stop: 07/21/19 05:17 Last Admin: 07/21/19 05:18 Dose: Not Given Hydrocodone Bitart/Acetaminophen ([place] 325-5 Mg) 1 tab PO Q4H PRN PRN Reason: Pain (moderate 4-6) Last Admin: 07/27/19 07:03 Dose: 1 tab Gabapentin (Neurontin) 400 mg PO Q8H [facility] Stop: 07/23/19 09:47 Last Admin: 07/21/19 09:20 Dose: 400 mg Haloperidol Lactate (Haldol) 5 mg IM ONETIME ONE Stop: 07/19/19 17:21 Last Admin: 07/19/19 17:25 Dose: 5 mg Haloperidol Lactate (Haldol) 2 mg IVPUSH Q2H PRN PRN Reason: Agitation Last Admin: 07/19/19 21:00 Dose: 2 mg Multivitamins/Minerals 10 ml/Thiamine HCl 100 mg/ Folic Acid 1 mg/ Magnesium Sulfate 3 gm/ Sodium Chloride 1,017.2 mls @ 500 mls/hr IV ASDIRECTED ONE Stop: 07/19/19 17:47 Last Admin: 07/19/19 15:59 Dose: 500 mls/hr Sodium Chloride (Normal Saline) 1,000 mls @ 100 mls/hr IV ASDIRECTED [facility] Last Admin: 07/20/19 04:20 Dose: 100 mls/hr Lorazepam (Ativan) 0 mg IV ASDIRECTED [facility]; Protocol Lorazepam (Ativan) 0 mg PO ASDIRECTED [facility]; Protocol Lorazepam (Ativan) 0.5 mg PO ONETIME ONE Stop: 07/29/19 11:34 Last Admin: 07/29/19 11:41 Dose: 0.5 mg Metoprolol Succinate (Toprol Xl) 25 mg PO DAILY [facility] Stop: 07/20/19 09:15 Last Admin: 07/20/19 08:22 Dose: 25 mg Phenobarbital (Phenobarbital) 200 mg PO NOW STA Stop: 07/19/19 15:34 Last Admin: 07/19/19 16:01 Dose: Not Given Phenobarbital (Phenobarbital) 300 mg PO NOW STA Stop: 07/19/19 15:35 Last Admin: 07/19/19 15:51 Dose: 300 mg Sodium Chloride (Saline Flush) 10 ml FLUSH ASDIRECTED PRN PRN Reason: Keep Vein Open Last Admin: 07/19/19 16:01 Dose: 10 ml - Exam Quality Assessment: Urine Catheter, DVT Prophylaxis General: Alert, Oriented, Cooperative, Mild Distress Lungs: Clear to Auscultation, Normal Respiratory Effort Cardiovascular: Regular Rate, Regular Rhythm, No Murmurs GI/Abdominal Exam: Soft, Non-Tender, No Organomegaly, No Distention Extremities: Non-Tender, No Pedal Edema Skin: Warm, Dry Sepsis Event Note - Evaluation Sepsis Screening Result: No Definite Risk - Focused Exam Vital Signs: Vital Signs Temp Pulse Pulse Resp BP BP Pulse Ox 07/30/19 08:55 97.6 F 60 16 124/62 98 07/30/19 08:49 60 124/52 L 07/30/19 08:48 124/52 L Date Exam was Performed: 07/30/19 Time Exam was Performed: 09:08 - Problem List Review Problem List Initiated/Reviewed/Updated: Yes - Plan Plan:: ASSESSMENT AND PLAN ALCOHOL ABUSE AND DEPENDENCE-stable. Commitment process has been initiated and preliminary hearing was completed 07/24. No behavior issues. Stable and awaiting court date. 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 More stable now that he is not consuming alcohol, ambulating with use of his walker. -Continue physical therapy SEIZURES-No seizures during the hospital stay. -Continue outpatient meds HISTORY OF DVT-remote history. Chronically anticoagulated. -Continue apixaban MAINTENANCE ISSUES -DVT prophylaxis; apixaban -GI prophylaxis; PPI -Chavarria catheter; not indicated -Nutrition; 2 g sodium diet DISPOSITION-anticipate discharge to inpatient treatment versus potentially home after the hospital stay.
[2019-07-30] MEDS: Melatonin 3 MG Tab PO SCH (20:55)
[2019-07-30] MEDS: traZODone 50 MG Tab PO SCH (20:55)
[2019-07-31] MEDS: Acetaminophen 325 MG Tab PO PRN ×5 (05:30→21:55)
[2019-07-31] MEDS: Acetaminophen/HYDROcodone 325-10 MG Tab PO PRN ×5 (05:30→21:55)
[2019-07-31] MEDS: PHENobarbital 32.4 MG Tab PO SCH ×2 (08:22→21:00)
[2019-07-31] MEDS: Phenytoin 100 MG Cap.ER PO SCH ×2 (08:23→20:58)
[2019-07-31] MEDS: Citalopram 10 MG Tab PO SCH (08:23)
[2019-07-31] MEDS: Docusate Sodium 100 MG Cap PO SCH (08:23)
[2019-07-31] MEDS: Losartan 25 MG Tab PO SCH (08:23)
[2019-07-31] MEDS: Thiamine 100 MG Tab PO SCH (08:24)
[2019-07-31] MEDS: Tamsulosin 0.4 MG Cap.ER PO SCH (08:24)
[2019-07-31] MEDS: Apixaban 5 MG Tab PO SCH ×2 (08:24→20:58)
[2019-07-31] MEDS: Folic Acid 1 MG Tab PO SCH (08:24)
[2019-07-31] MEDS: Metoprolol Succinate 25 MG Tab.ER PO SCH (08:24)
--- NOTE | 2019-07-31 09:40 | PCM.PN ---
- General Info Date of Service: 07/31/19 Subjective Update: Mr. Degroot has been stable since yesterday, no new symptoms or complaints. Functional Status: Reports: Tolerating Diet, Ambulating, Urinating - Review of Systems General: Reports: No Symptoms Pulmonary: Reports: No Symptoms Cardiovascular: Reports: No Symptoms Gastrointestinal: Reports: No Symptoms - Patient Data Vitals - Most Recent: Last Vital Signs Temp 96.3 F 07/31/19 07:50 Pulse 78 07/31/19 08:24 Resp 14 07/31/19 07:50 BP 133/65 07/31/19 08:24 Pulse Ox 99 07/31/19 07:50 Weight - Most Recent: 109 lb 12.643 oz Med Orders - Current: Current Medications Acetaminophen (Tylenol) 325 mg PO Q4H PRN PRN Reason: Pain (Mild 1-3)/fever Last Admin: 07/31/19 09:32 Dose: 325 mg Hydrocodone Bitart/Acetaminophen ([place] 325-10 Mg) 1 tab PO Q4H PRN PRN Reason: Pain (moderate 4-6) Last Admin: 07/31/19 09:32 Dose: 1 tab Albuterol (Proventil Neb Soln) 2.5 mg NEB Q4H PRN PRN Reason: Shortness Of Breath/wheezing Apixaban (Eliquis) 5 mg PO BID [facility] Last Admin: 07/31/19 08:24 Dose: 5 mg Citalopram Hydrobromide (Celexa) 30 mg PO DAILY [facility] Last Admin: 07/31/19 08:23 Dose: 30 mg Docusate Sodium (Colace) 100 mg PO DAILY [facility] Last Admin: 07/31/19 08:23 Dose: 100 mg Folic Acid (Folic Acid) 1 mg PO DAILY [facility] Last Admin: 07/31/19 08:24 Dose: 1 mg Losartan Potassium (Cozaar) 25 mg PO DAILY [facility] Last Admin: 07/31/19 08:23 Dose: 25 mg Melatonin (Melatonin) 9 mg PO BEDTIME [facility] Last Admin: 07/30/19 20:55 Dose: 9 mg Metoprolol Succinate (Toprol Xl) 25 mg PO DAILY [facility] Last Admin: 07/31/19 08:24 Dose: 25 mg Ondansetron HCl (Zofran) 4 mg IV Q4H PRN PRN Reason: Nausea/Vomiting Phenobarbital (Phenobarbital) 97.2 mg PO BID [facility] Last Admin: 07/31/19 08:22 Dose: 97.2 mg Phenytoin Sodium (Phenytoin) 200 mg PO BID [facility] Last Admin: 07/31/19 08:23 Dose: 200 mg Polyethylene Glycol (Miralax) 17 gm PO DAILY PRN PRN Reason: Constipation Sodium Chloride (Saline Flush) 10 ml FLUSH ASDIRECTED PRN PRN Reason: Keep Vein Open Tamsulosin HCl (Flomax) 0.4 mg PO DAILY [facility] Last Admin: 07/31/19 08:24 Dose: 0.4 mg Thiamine HCl (Vitamin B-1) 100 mg PO DAILY [facility] Last Admin: 07/31/19 08:24 Dose: 100 mg Trazodone HCl (Trazodone) 150 mg PO BEDTIME [facility] Last Admin: 07/30/19 20:55 Dose: 150 mg Discontinued Medications Acetaminophen (Tylenol) 650 mg PO Q4H PRN PRN Reason: Pain (Mild 1-3)/fever Last Admin: 07/21/19 09:19 Dose: 325 mg Acetaminophen (Tylenol) Confirm Administered Dose 325 mg .ROUTE .STK-MED ONE Stop: 07/21/19 01:40 Last Admin: 07/21/19 04:04 Dose: Not Given Acetaminophen (Tylenol) Confirm Administered Dose 325 mg .ROUTE .STK-MED ONE Stop: 07/21/19 05:17 Last Admin: 07/21/19 05:18 Dose: Not Given Hydrocodone Bitart/Acetaminophen ([place] 325-5 Mg) 1 tab PO Q4H PRN PRN Reason: Pain (moderate 4-6) Last Admin: 07/27/19 07:03 Dose: 1 tab Gabapentin (Neurontin) 400 mg PO Q8H [facility] Stop: 07/23/19 09:47 Last Admin: 07/21/19 09:20 Dose: 400 mg Haloperidol Lactate (Haldol) 5 mg IM ONETIME ONE Stop: 07/19/19 17:21 Last Admin: 07/19/19 17:25 Dose: 5 mg Haloperidol Lactate (Haldol) 2 mg IVPUSH Q2H PRN PRN Reason: Agitation Last Admin: 07/19/19 21:00 Dose: 2 mg Multivitamins/Minerals 10 ml/Thiamine HCl 100 mg/ Folic Acid 1 mg/ Magnesium Sulfate 3 gm/ Sodium Chloride 1,017.2 mls @ 500 mls/hr IV ASDIRECTED ONE Stop: 07/19/19 17:47 Last Admin: 07/19/19 15:59 Dose: 500 mls/hr Sodium Chloride (Normal Saline) 1,000 mls @ 100 mls/hr IV ASDIRECTED [facility] Last Admin: 07/20/19 04:20 Dose: 100 mls/hr Lorazepam (Ativan) 0 mg IV ASDIRECTED [facility]; Protocol Lorazepam (Ativan) 0 mg PO ASDIRECTED [facility]; Protocol Lorazepam (Ativan) 0.5 mg PO ONETIME ONE Stop: 07/29/19 11:34 Last Admin: 07/29/19 11:41 Dose: 0.5 mg Metoprolol Succinate (Toprol Xl) 25 mg PO DAILY [facility] Stop: 07/20/19 09:15 Last Admin: 07/20/19 08:22 Dose: 25 mg Phenobarbital (Phenobarbital) 200 mg PO NOW [facility] Stop: 07/19/19 15:34 Last Admin: 07/19/19 16:01 Dose: Not Given Phenobarbital (Phenobarbital) 300 mg PO NOW [facility] Stop: 07/19/19 15:35 Last Admin: 07/19/19 15:51 Dose: 300 mg Sodium Chloride (Saline Flush) 10 ml FLUSH ASDIRECTED PRN PRN Reason: Keep Vein Open Last Admin: 07/19/19 16:01 Dose: 10 ml - Exam General: Alert, Oriented, Cooperative, No Acute Distress Lungs: Clear to Auscultation, Normal Respiratory Effort Cardiovascular: Regular Rate, Regular Rhythm, No Murmurs GI/Abdominal Exam: Soft, Non-Tender, No Organomegaly, No Distention Extremities: Non-Tender, No Pedal Edema Sepsis Event Note - Evaluation Sepsis Screening Result: No Definite Risk - Focused Exam Vital Signs: Vital Signs Temp Pulse Pulse Resp BP BP Pulse Ox 07/31/19 08:24 78 133/65 07/31/19 08:23 133/65 07/31/19 07:50 96.3 F 73 14 139/59 L 99 Date Exam was Performed: 07/31/19 Time Exam was Performed: 09:37 - Problem List Review Problem List Initiated/Reviewed/Updated: Yes - Plan Plan:: ASSESSMENT AND PLAN ALCOHOL ABUSE AND DEPENDENCE-stable. Commitment process has been initiated and preliminary hearing was completed 07/24. No behavior issues. Stable and awaiting court date. 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 More stable now that he is not consuming alcohol, ambulating with use of his walker. -Continue physical therapy SEIZURES-No seizures during the hospital stay. -Continue outpatient meds HISTORY OF DVT-remote history. Chronically anticoagulated. -Continue apixaban MAINTENANCE ISSUES -DVT prophylaxis; apixaban -GI prophylaxis; PPI -Chavarria catheter; not indicated -Nutrition; 2 g sodium diet DISPOSITION-anticipate discharge to inpatient treatment versus potentially home after the hospital stay.
[2019-07-31] MEDS: Melatonin 3 MG Tab PO SCH (20:58)
[2019-07-31] MEDS: traZODone 50 MG Tab PO SCH (21:55)
[2019-08-01] MEDS: Acetaminophen 325 MG Tab PO PRN ×5 (01:48→18:18)
[2019-08-01] MEDS: Acetaminophen/HYDROcodone 325-10 MG Tab PO PRN ×5 (01:48→18:17)
[2019-08-01] MEDS: Citalopram 10 MG Tab PO SCH (09:18)
[2019-08-01] MEDS: Docusate Sodium 100 MG Cap PO SCH (09:19)
[2019-08-01] MEDS: Apixaban 5 MG Tab PO SCH ×2 (09:20→20:57)
[2019-08-01] MEDS: Losartan 25 MG Tab PO SCH (09:20)
[2019-08-01] MEDS: Folic Acid 1 MG Tab PO SCH (09:21)
[2019-08-01] MEDS: Tamsulosin 0.4 MG Cap.ER PO SCH (09:21)
[2019-08-01] MEDS: PHENobarbital 32.4 MG Tab PO SCH ×2 (09:21→20:57)
[2019-08-01] MEDS: Phenytoin 100 MG Cap.ER PO SCH ×2 (09:22→20:57)
[2019-08-01] MEDS: Metoprolol Succinate 25 MG Tab.ER PO SCH (09:22)
[2019-08-01] MEDS: Thiamine 100 MG Tab PO SCH (09:23)
--- NOTE | 2019-08-01 09:48 | PCM.PN ---
- General Info Date of Service: 08/01/19 Subjective Update: Mr. Degroot has remained medically stable over the last 24 hours. No new symptoms or complaints. Functional Status: Reports: Tolerating Diet, Ambulating, Urinating - Review of Systems General: Reports: No Symptoms Pulmonary: Reports: No Symptoms Cardiovascular: Reports: No Symptoms Gastrointestinal: Reports: No Symptoms - Patient Data Vitals - Most Recent: Last Vital Signs Temp 96 F 08/01/19 08:00 Pulse 78 08/01/19 09:22 Resp 12 08/01/19 08:00 BP 135/74 08/01/19 09:22 Pulse Ox 99 08/01/19 08:00 Weight - Most Recent: 109 lb 12.643 oz Med Orders - Current: Current Medications Acetaminophen (Tylenol) 325 mg PO Q4H PRN PRN Reason: Pain (Mild 1-3)/fever Last Admin: 08/01/19 05:54 Dose: 325 mg Hydrocodone Bitart/Acetaminophen ([place] 325-10 Mg) 1 tab PO Q4H PRN PRN Reason: Pain (moderate 4-6) Last Admin: 08/01/19 05:54 Dose: 1 tab Albuterol (Proventil Neb Soln) 2.5 mg NEB Q4H PRN PRN Reason: Shortness Of Breath/wheezing Apixaban (Eliquis) 5 mg PO BID [facility] Last Admin: 08/01/19 09:20 Dose: 5 mg Citalopram Hydrobromide (Celexa) 30 mg PO DAILY [facility] Last Admin: 08/01/19 09:18 Dose: 30 mg Docusate Sodium (Colace) 100 mg PO DAILY [facility] Last Admin: 08/01/19 09:19 Dose: 100 mg Folic Acid (Folic Acid) 1 mg PO DAILY [facility] Last Admin: 08/01/19 09:21 Dose: 1 mg Losartan Potassium (Cozaar) 25 mg PO DAILY [facility] Last Admin: 08/01/19 09:20 Dose: 25 mg Melatonin (Melatonin) 9 mg PO BEDTIME [facility] Last Admin: 07/31/19 20:58 Dose: 9 mg Metoprolol Succinate (Toprol Xl) 25 mg PO DAILY [facility] Last Admin: 08/01/19 09:22 Dose: 25 mg Ondansetron HCl (Zofran) 4 mg IV Q4H PRN PRN Reason: Nausea/Vomiting Phenobarbital (Phenobarbital) 97.2 mg PO BID [facility] Last Admin: 08/01/19 09:21 Dose: 97.2 mg Phenytoin Sodium (Phenytoin) 200 mg PO BID [facility] Last Admin: 08/01/19 09:22 Dose: 200 mg Polyethylene Glycol (Miralax) 17 gm PO DAILY PRN PRN Reason: Constipation Sodium Chloride (Saline Flush) 10 ml FLUSH ASDIRECTED PRN PRN Reason: Keep Vein Open Tamsulosin HCl (Flomax) 0.4 mg PO DAILY [facility] Last Admin: 08/01/19 09:21 Dose: 0.4 mg Thiamine HCl (Vitamin B-1) 100 mg PO DAILY [facility] Last Admin: 08/01/19 09:23 Dose: 100 mg Trazodone HCl (Trazodone) 150 mg PO BEDTIME [facility] Last Admin: 07/31/19 21:55 Dose: 150 mg Discontinued Medications Acetaminophen (Tylenol) 650 mg PO Q4H PRN PRN Reason: Pain (Mild 1-3)/fever Last Admin: 07/21/19 09:19 Dose: 325 mg Acetaminophen (Tylenol) Confirm Administered Dose 325 mg .ROUTE .STK-MED ONE Stop: 07/21/19 01:40 Last Admin: 07/21/19 04:04 Dose: Not Given Acetaminophen (Tylenol) Confirm Administered Dose 325 mg .ROUTE .STK-MED ONE Stop: 07/21/19 05:17 Last Admin: 07/21/19 05:18 Dose: Not Given Hydrocodone Bitart/Acetaminophen ([place] 325-5 Mg) 1 tab PO Q4H PRN PRN Reason: Pain (moderate 4-6) Last Admin: 07/27/19 07:03 Dose: 1 tab Gabapentin (Neurontin) 400 mg PO Q8H [facility] Stop: 07/23/19 09:47 Last Admin: 07/21/19 09:20 Dose: 400 mg Haloperidol Lactate (Haldol) 5 mg IM ONETIME ONE Stop: 07/19/19 17:21 Last Admin: 07/19/19 17:25 Dose: 5 mg Haloperidol Lactate (Haldol) 2 mg IVPUSH Q2H PRN PRN Reason: Agitation Last Admin: 07/19/19 21:00 Dose: 2 mg Multivitamins/Minerals 10 ml/Thiamine HCl 100 mg/ Folic Acid 1 mg/ Magnesium Sulfate 3 gm/ Sodium Chloride 1,017.2 mls @ 500 mls/hr IV ASDIRECTED ONE Stop: 07/19/19 17:47 Last Admin: 07/19/19 15:59 Dose: 500 mls/hr Sodium Chloride (Normal Saline) 1,000 mls @ 100 mls/hr IV ASDIRECTED [facility] Last Admin: 07/20/19 04:20 Dose: 100 mls/hr Lorazepam (Ativan) 0 mg IV ASDIRECTED [facility]; Protocol Lorazepam (Ativan) 0 mg PO ASDIRECTED [facility]; Protocol Lorazepam (Ativan) 0.5 mg PO ONETIME ONE Stop: 07/29/19 11:34 Last Admin: 07/29/19 11:41 Dose: 0.5 mg Metoprolol Succinate (Toprol Xl) 25 mg PO DAILY [facility] Stop: 07/20/19 09:15 Last Admin: 07/20/19 08:22 Dose: 25 mg Phenobarbital (Phenobarbital) 200 mg PO NOW ST[facility] Stop: 07/19/19 15:34 Last Admin: 07/19/19 16:01 Dose: Not Given Phenobarbital (Phenobarbital) 300 mg PO NOW ST[facility] Stop: 07/19/19 15:35 Last Admin: 07/19/19 15:51 Dose: 300 mg Sodium Chloride (Saline Flush) 10 ml FLUSH ASDIRECTED PRN PRN Reason: Keep Vein Open Last Admin: 07/19/19 16:01 Dose: 10 ml - Exam General: Alert, Oriented, Cooperative, No Acute Distress Lungs: Clear to Auscultation, Normal Respiratory Effort Cardiovascular: Regular Rate, Regular Rhythm, No Murmurs GI/Abdominal Exam: Soft, Non-Tender, No Organomegaly, No Distention Extremities: Non-Tender, No Pedal Edema Sepsis Event Note - Evaluation Sepsis Screening Result: No Definite Risk - Focused Exam Vital Signs: Vital Signs Temp Pulse Pulse Resp BP BP Pulse Ox 08/01/19 09:22 78 135/74 08/01/19 09:20 136/68 08/01/19 08:00 96 F 61 12 126/48 L 99 Date Exam was Performed: 08/01/19 Time Exam was Performed: 09:46 - Problem List Review Problem List Initiated/Reviewed/Updated: Yes - Plan Plan:: ASSESSMENT AND PLAN ALCOHOL ABUSE AND DEPENDENCE-stable. Commitment process has been initiated and preliminary hearing was completed 07/24. No behavior issues. Stable and awaiting court date. 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 More stable now that he is not consuming alcohol, ambulating with use of his walker. -Continue physical therapy SEIZURES-No seizures during the hospital stay. -Continue outpatient meds HISTORY OF DVT-remote history. Chronically anticoagulated. -Continue apixaban MAINTENANCE ISSUES -DVT prophylaxis; apixaban -GI prophylaxis; PPI -Chavarria catheter; not indicated -Nutrition; 2 g sodium diet DISPOSITION-anticipate discharge to inpatient treatment versus potentially home after the hospital stay.
[2019-08-01] MEDS: traZODone 50 MG Tab PO SCH (20:57)
[2019-08-01] MEDS: Melatonin 3 MG Tab PO SCH (20:57)
[2019-08-02] MEDS: Acetaminophen 325 MG Tab PO PRN ×6 (01:02→21:03)
[2019-08-02] MEDS: Acetaminophen/HYDROcodone 325-10 MG Tab PO PRN ×6 (01:02→21:03)
[2019-08-02] MEDS: Citalopram 10 MG Tab PO SCH (09:14)
[2019-08-02] MEDS: Tamsulosin 0.4 MG Cap.ER PO SCH (09:14)
[2019-08-02] MEDS: Losartan 25 MG Tab PO SCH (09:14)
[2019-08-02] MEDS: Docusate Sodium 100 MG Cap PO SCH (09:14)
[2019-08-02] MEDS: Apixaban 5 MG Tab PO SCH ×2 (09:14→21:00)
[2019-08-02] MEDS: Metoprolol Succinate 25 MG Tab.ER PO SCH (09:14)
[2019-08-02] MEDS: Folic Acid 1 MG Tab PO SCH (09:14)
[2019-08-02] MEDS: Thiamine 100 MG Tab PO SCH (09:14)
--- NOTE | 2019-08-02 09:15 | PCM.PN ---
- General Info Date of Service: 08/02/19 Subjective Update: Mr. Degroot has remained stable over the last 24 hours. Vital signs have remained stable and he has been afebrile. Denies any new symptoms or complaints. He has been more anxious and concerned about his upcoming court date. Functional Status: Reports: Tolerating Diet, Ambulating, Urinating - Review of Systems General: Denies: Fever, Chills Pulmonary: Reports: No Symptoms Cardiovascular: Reports: No Symptoms Gastrointestinal: Reports: No Symptoms - Patient Data Vitals - Most Recent: Last Vital Signs Temp 97.7 F 08/01/19 20:00 Pulse 64 08/01/19 20:00 Resp 12 08/01/19 20:00 BP 117/45 L 08/01/19 20:00 Pulse Ox 98 08/01/19 20:00 Weight - Most Recent: 109 lb 12.643 oz Med Orders - Current: Current Medications Acetaminophen (Tylenol) 325 mg PO Q4H PRN PRN Reason: Pain (Mild 1-3)/fever Last Admin: 08/02/19 05:01 Dose: 325 mg Hydrocodone Bitart/Acetaminophen ([place] 325-10 Mg) 1 tab PO Q4H PRN PRN Reason: Pain (moderate 4-6) Last Admin: 08/02/19 05:01 Dose: 1 tab Albuterol (Proventil Neb Soln) 2.5 mg NEB Q4H PRN PRN Reason: Shortness Of Breath/wheezing Apixaban (Eliquis) 5 mg PO BID [facility] Last Admin: 08/01/19 20:57 Dose: 5 mg Citalopram Hydrobromide (Celexa) 30 mg PO DAILY [facility] Last Admin: 08/01/19 09:18 Dose: 30 mg Docusate Sodium (Colace) 100 mg PO DAILY [facility] Last Admin: 08/01/19 09:19 Dose: 100 mg Folic Acid (Folic Acid) 1 mg PO DAILY [facility] Last Admin: 08/01/19 09:21 Dose: 1 mg Losartan Potassium (Cozaar) 25 mg PO DAILY [facility] Last Admin: 08/01/19 09:20 Dose: 25 mg Melatonin (Melatonin) 9 mg PO BEDTIME [facility] Last Admin: 08/01/19 20:57 Dose: 9 mg Metoprolol Succinate (Toprol Xl) 25 mg PO DAILY [facility] Last Admin: 08/01/19 09:22 Dose: 25 mg Ondansetron HCl (Zofran) 4 mg IV Q4H PRN PRN Reason: Nausea/Vomiting Phenobarbital (Phenobarbital) 97.2 mg PO BID [facility] Last Admin: 08/01/19 20:57 Dose: 97.2 mg Phenytoin Sodium (Phenytoin) 200 mg PO BID [facility] Last Admin: 08/01/19 20:57 Dose: 200 mg Polyethylene Glycol (Miralax) 17 gm PO DAILY PRN PRN Reason: Constipation Sodium Chloride (Saline Flush) 10 ml FLUSH ASDIRECTED PRN PRN Reason: Keep Vein Open Tamsulosin HCl (Flomax) 0.4 mg PO DAILY [facility] Last Admin: 08/01/19 09:21 Dose: 0.4 mg Thiamine HCl (Vitamin B-1) 100 mg PO DAILY [facility] Last Admin: 08/01/19 09:23 Dose: 100 mg Trazodone HCl (Trazodone) 150 mg PO BEDTIME [facility] Last Admin: 08/01/19 20:57 Dose: 150 mg Discontinued Medications Acetaminophen (Tylenol) 650 mg PO Q4H PRN PRN Reason: Pain (Mild 1-3)/fever Last Admin: 07/21/19 09:19 Dose: 325 mg Acetaminophen (Tylenol) Confirm Administered Dose 325 mg .ROUTE .STK-MED ONE Stop: 07/21/19 01:40 Last Admin: 07/21/19 04:04 Dose: Not Given Acetaminophen (Tylenol) Confirm Administered Dose 325 mg .ROUTE .STK-MED ONE Stop: 07/21/19 05:17 Last Admin: 07/21/19 05:18 Dose: Not Given Hydrocodone Bitart/Acetaminophen ([place] 325-5 Mg) 1 tab PO Q4H PRN PRN Reason: Pain (moderate 4-6) Last Admin: 07/27/19 07:03 Dose: 1 tab Gabapentin (Neurontin) 400 mg PO Q8H [facility] Stop: 07/23/19 09:47 Last Admin: 07/21/19 09:20 Dose: 400 mg Haloperidol Lactate (Haldol) 5 mg IM ONETIME ONE Stop: 07/19/19 17:21 Last Admin: 07/19/19 17:25 Dose: 5 mg Haloperidol Lactate (Haldol) 2 mg IVPUSH Q2H PRN PRN Reason: Agitation Last Admin: 07/19/19 21:00 Dose: 2 mg Multivitamins/Minerals 10 ml/Thiamine HCl 100 mg/ Folic Acid 1 mg/ Magnesium Sulfate 3 gm/ Sodium Chloride 1,017.2 mls @ 500 mls/hr IV ASDIRECTED ONE Stop: 07/19/19 17:47 Last Admin: 07/19/19 15:59 Dose: 500 mls/hr Sodium Chloride (Normal Saline) 1,000 mls @ 100 mls/hr IV ASDIRECTED [facility] Last Admin: 07/20/19 04:20 Dose: 100 mls/hr Lorazepam (Ativan) 0 mg IV ASDIRECTED [facility]; Protocol Lorazepam (Ativan) 0 mg PO ASDIRECTED [facility]; Protocol Lorazepam (Ativan) 0.5 mg PO ONETIME ONE Stop: 07/29/19 11:34 Last Admin: 07/29/19 11:41 Dose: 0.5 mg Metoprolol Succinate (Toprol Xl) 25 mg PO DAILY [facility] Stop: 07/20/19 09:15 Last Admin: 07/20/19 08:22 Dose: 25 mg Phenobarbital (Phenobarbital) 200 mg PO NOW STA Stop: 07/19/19 15:34 Last Admin: 07/19/19 16:01 Dose: Not Given Phenobarbital (Phenobarbital) 300 mg PO NOW STA Stop: 07/19/19 15:35 Last Admin: 07/19/19 15:51 Dose: 300 mg Sodium Chloride (Saline Flush) 10 ml FLUSH ASDIRECTED PRN PRN Reason: Keep Vein Open Last Admin: 07/19/19 16:01 Dose: 10 ml - Exam General: Alert, Oriented, Cooperative, No Acute Distress Lungs: Clear to Auscultation, Normal Respiratory Effort Cardiovascular: Regular Rate, Regular Rhythm, No Murmurs GI/Abdominal Exam: Soft, Non-Tender, No Organomegaly, No Distention Sepsis Event Note - Evaluation Sepsis Screening Result: No Definite Risk - Problem List Review Problem List Initiated/Reviewed/Updated: Yes - Plan Plan:: ASSESSMENT AND PLAN ALCOHOL ABUSE AND DEPENDENCE-stable. Commitment process has been initiated and preliminary hearing was completed 07/24. No behavior issues. Stable and awaiting court date. 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 More stable now that he is not consuming alcohol, ambulating with use of his walker. -Continue physical therapy SEIZURES-No seizures during the hospital stay. -Continue outpatient meds HISTORY OF DVT-remote history. Chronically anticoagulated. -Continue apixaban MAINTENANCE ISSUES -DVT prophylaxis; apixaban -GI prophylaxis; PPI -Chavarria catheter; not indicated -Nutrition; 2 g sodium diet DISPOSITION-pending court proceeding for commitment
[2019-08-02] MEDS: Phenytoin 100 MG Cap.ER PO SCH ×2 (09:20→21:02)
[2019-08-02] MEDS: PHENobarbital 32.4 MG Tab PO SCH ×2 (09:21→20:59)
[2019-08-02] MEDS: traZODone 50 MG Tab PO SCH (21:01)
[2019-08-02] MEDS: Melatonin 3 MG Tab PO SCH (21:01)
[2019-08-03] MEDS: Acetaminophen 325 MG Tab PO PRN ×5 (01:03→17:08)
[2019-08-03] MEDS: Acetaminophen/HYDROcodone 325-10 MG Tab PO PRN ×5 (01:03→17:08)
[2019-08-03] MEDS: Citalopram 10 MG Tab PO SCH (08:49)
[2019-08-03] MEDS: Folic Acid 1 MG Tab PO SCH (08:49)
[2019-08-03] MEDS: Apixaban 5 MG Tab PO SCH ×2 (08:49→21:32)
[2019-08-03] MEDS: Phenytoin 100 MG Cap.ER PO SCH ×2 (08:49→21:32)
[2019-08-03] MEDS: Tamsulosin 0.4 MG Cap.ER PO SCH (08:49)
[2019-08-03] MEDS: Thiamine 100 MG Tab PO SCH (08:49)
[2019-08-03] MEDS: Docusate Sodium 100 MG Cap PO SCH (08:50)
[2019-08-03] MEDS: PHENobarbital 32.4 MG Tab PO SCH ×2 (08:57→21:32)
[2019-08-03] MEDS: Metoprolol Succinate 25 MG Tab.ER PO SCH (12:59)
[2019-08-03] MEDS: Losartan 25 MG Tab PO SCH (13:00)
--- NOTE | 2019-08-03 14:15 | PCM.PN ---
- General Info Date of Service: 08/03/19 Subjective Update: No acute events overnight. No behavior issues. Medically stable. Next court hearing is tomorrow. Functional Status: Reports: Pain Controlled - Patient Data Vitals - Most Recent: Last Vital Signs Temp 35.9 C 08/03/19 08:00 Pulse 62 08/03/19 12:59 Resp 17 08/03/19 12:56 BP 137/55 L 08/03/19 13:00 Pulse Ox 95 08/03/19 12:56 Weight - Most Recent: 49.8 kg Med Orders - Current: Current Medications Acetaminophen (Tylenol) 325 mg PO Q4H PRN PRN Reason: Pain (Mild 1-3)/fever Last Admin: 08/03/19 12:58 Dose: 325 mg Hydrocodone Bitart/Acetaminophen ([place] 325-10 Mg) 1 tab PO Q4H PRN PRN Reason: Pain (moderate 4-6) Last Admin: 08/03/19 12:57 Dose: 1 tab Albuterol (Proventil Neb Soln) 2.5 mg NEB Q4H PRN PRN Reason: Shortness Of Breath/wheezing Apixaban (Eliquis) 5 mg PO BID [facility] Last Admin: 08/03/19 08:49 Dose: 5 mg Citalopram Hydrobromide (Celexa) 30 mg PO DAILY [facility] Last Admin: 08/03/19 08:49 Dose: 30 mg Docusate Sodium (Colace) 100 mg PO DAILY [facility] Last Admin: 08/03/19 08:50 Dose: 100 mg Folic Acid (Folic Acid) 1 mg PO DAILY [facility] Last Admin: 08/03/19 08:49 Dose: 1 mg Losartan Potassium (Cozaar) 25 mg PO DAILY [facility] Last Admin: 08/03/19 13:00 Dose: 25 mg Melatonin (Melatonin) 9 mg PO BEDTIME [facility] Last Admin: 08/02/19 21:01 Dose: 9 mg Metoprolol Succinate (Toprol Xl) 25 mg PO DAILY [facility] Last Admin: 08/03/19 12:59 Dose: 25 mg Ondansetron HCl (Zofran) 4 mg IV Q4H PRN PRN Reason: Nausea/Vomiting Phenobarbital (Phenobarbital) 97.2 mg PO BID [facility] Last Admin: 08/03/19 08:57 Dose: 97.2 mg Phenytoin Sodium (Phenytoin) 200 mg PO BID [facility] Last Admin: 08/03/19 08:49 Dose: 200 mg Polyethylene Glycol (Miralax) 17 gm PO DAILY PRN PRN Reason: Constipation Sodium Chloride (Saline Flush) 10 ml FLUSH ASDIRECTED PRN PRN Reason: Keep Vein Open Tamsulosin HCl (Flomax) 0.4 mg PO DAILY [facility] Last Admin: 08/03/19 08:49 Dose: 0.4 mg Thiamine HCl (Vitamin B-1) 100 mg PO DAILY [facility] Last Admin: 08/03/19 08:49 Dose: 100 mg Trazodone HCl (Trazodone) 150 mg PO BEDTIME [facility] Last Admin: 08/02/19 21:01 Dose: 150 mg Discontinued Medications Acetaminophen (Tylenol) 650 mg PO Q4H PRN PRN Reason: Pain (Mild 1-3)/fever Last Admin: 07/21/19 09:19 Dose: 325 mg Acetaminophen (Tylenol) Confirm Administered Dose 325 mg .ROUTE .STK-MED ONE Stop: 07/21/19 01:40 Last Admin: 07/21/19 04:04 Dose: Not Given Acetaminophen (Tylenol) Confirm Administered Dose 325 mg .ROUTE .STK-MED ONE Stop: 07/21/19 05:17 Last Admin: 07/21/19 05:18 Dose: Not Given Hydrocodone Bitart/Acetaminophen ([place] 325-5 Mg) 1 tab PO Q4H PRN PRN Reason: Pain (moderate 4-6) Last Admin: 07/27/19 07:03 Dose: 1 tab Gabapentin (Neurontin) 400 mg PO Q8H [facility] Stop: 07/23/19 09:47 Last Admin: 07/21/19 09:20 Dose: 400 mg Haloperidol Lactate (Haldol) 5 mg IM ONETIME ONE Stop: 07/19/19 17:21 Last Admin: 07/19/19 17:25 Dose: 5 mg Haloperidol Lactate (Haldol) 2 mg IVPUSH Q2H PRN PRN Reason: Agitation Last Admin: 07/19/19 21:00 Dose: 2 mg Multivitamins/Minerals 10 ml/Thiamine HCl 100 mg/ Folic Acid 1 mg/ Magnesium Sulfate 3 gm/ Sodium Chloride 1,017.2 mls @ 500 mls/hr IV ASDIRECTED ONE Stop: 07/19/19 17:47 Last Admin: 07/19/19 15:59 Dose: 500 mls/hr Sodium Chloride (Normal Saline) 1,000 mls @ 100 mls/hr IV ASDIRECTED [facility] Last Admin: 07/20/19 04:20 Dose: 100 mls/hr Lorazepam (Ativan) 0 mg IV ASDIRECTED [facility]; Protocol Lorazepam (Ativan) 0 mg PO ASDIRECTED [facility]; Protocol Lorazepam (Ativan) 0.5 mg PO ONETIME ONE Stop: 07/29/19 11:34 Last Admin: 07/29/19 11:41 Dose: 0.5 mg Metoprolol Succinate (Toprol Xl) 25 mg PO DAILY [facility] Stop: 07/20/19 09:15 Last Admin: 07/20/19 08:22 Dose: 25 mg Phenobarbital (Phenobarbital) 200 mg PO NOW STA Stop: 07/19/19 15:34 Last Admin: 07/19/19 16:01 Dose: Not Given Phenobarbital (Phenobarbital) 300 mg PO NOW STA Stop: 07/19/19 15:35 Last Admin: 07/19/19 15:51 Dose: 300 mg Sodium Chloride (Saline Flush) 10 ml FLUSH ASDIRECTED PRN PRN Reason: Keep Vein Open Last Admin: 07/19/19 16:01 Dose: 10 ml - Exam Quality Assessment: No: Supplemental Oxygen General: Alert, Oriented, Cooperative, No Acute Distress Lungs: Normal Respiratory Effort GI/Abdominal Exam: Soft, No Distention Psy/Mental Status: Alert, Normal Affect Sepsis Event Note - Evaluation Sepsis Screening Result: No Definite Risk - Focused Exam Vital Signs: Vital Signs Temp Pulse Pulse Resp BP BP Pulse Ox 08/03/19 13:00 137/55 L 08/03/19 12:59 62 137/55 L 08/03/19 12:56 63 17 137/55 L 95 08/03/19 08:00 35.9 C 61 16 107/49 L 97 Date Exam was Performed: 08/03/19 Time Exam was Performed: 16:07 - Problem List Review Problem List Initiated/Reviewed/Updated: Yes - Plan Plan:: ASSESSMENT AND PLAN ALCOHOL ABUSE AND DEPENDENCE-stable. Commitment process has been initiated and preliminary hearing was completed 07/24. No behavior issues. Stable and awaiting court date tomorrow. 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 More stable now that he is not consuming alcohol, ambulating with use of his walker. -Continue physical therapy SEIZURES-No seizures during the hospital stay. -Continue outpatient meds HISTORY OF DVT-remote history. Chronically anticoagulated. -Continue apixaban MAINTENANCE ISSUES -DVT prophylaxis; apixaban -GI prophylaxis; PPI -Chavarria catheter; not indicated -Nutrition; 2 g sodium diet DISPOSITION-pending court proceeding for commitment Anthony Sotelo MD
[2019-08-03] MEDS: Melatonin 3 MG Tab PO SCH (21:32)
[2019-08-03] MEDS: traZODone 50 MG Tab PO SCH (21:32)
[2019-08-04] MEDS: Acetaminophen/HYDROcodone 325-10 MG Tab PO PRN ×6 (00:40→21:45)
[2019-08-04] MEDS: Acetaminophen 325 MG Tab PO PRN ×6 (00:41→21:45)
[2019-08-04] MEDS: PHENobarbital 32.4 MG Tab PO SCH ×2 (09:05→21:45)
[2019-08-04] MEDS: Tamsulosin 0.4 MG Cap.ER PO SCH (10:26)
[2019-08-04] MEDS: Losartan 25 MG Tab PO SCH (10:27)
[2019-08-04] MEDS: Citalopram 10 MG Tab PO SCH (10:27)
[2019-08-04] MEDS: Phenytoin 100 MG Cap.ER PO SCH ×2 (10:27→21:46)
[2019-08-04] MEDS: Docusate Sodium 100 MG Cap PO SCH (10:28)
[2019-08-04] MEDS: Metoprolol Succinate 25 MG Tab.ER PO SCH (10:28)
[2019-08-04] MEDS: Thiamine 100 MG Tab PO SCH (10:28)
[2019-08-04] MEDS: Apixaban 5 MG Tab PO SCH (10:43)
[2019-08-04] MEDS: Folic Acid 1 MG Tab PO SCH (10:43)
--- NOTE | 2019-08-04 12:13 | PCM.PN ---
- General Info Date of Service: 08/04/19 Subjective Update: There were no acute events overnight. No fevers. No behavior issues. The plan was for the patient to have his court hearing today but unfortunately this has been delayed until next week. Patient was questioning about the ongoing necessity of his apixaban. He is worried about potential bleeding issues. Functional Status: Reports: Pain Controlled - Patient Data Vitals - Most Recent: Last Vital Signs Temp 36.4 C 08/04/19 10:24 Pulse 72 08/04/19 10:28 Resp 16 08/04/19 10:24 BP 133/75 08/04/19 10:28 Pulse Ox 96 08/04/19 10:24 Weight - Most Recent: 49.8 kg Med Orders - Current: Current Medications Acetaminophen (Tylenol) 325 mg PO Q4H PRN PRN Reason: Pain (Mild 1-3)/fever Last Admin: 08/04/19 09:04 Dose: 325 mg Hydrocodone Bitart/Acetaminophen ([place] 325-10 Mg) 1 tab PO Q4H PRN PRN Reason: Pain (moderate 4-6) Last Admin: 08/04/19 09:05 Dose: 1 tab Albuterol (Proventil Neb Soln) 2.5 mg NEB Q4H PRN PRN Reason: Shortness Of Breath/wheezing Citalopram Hydrobromide (Celexa) [address] [facility] Last Admin: 08/04/19 10:27 Dose: 30 mg Docusate Sodium (Colace) [address] [facility] Last Admin: 08/04/19 10:28 Dose: 100 mg Folic Acid (Folic Acid) [address] [facility] Last Admin: 08/04/19 10:43 Dose: 1 mg Losartan Potassium (Cozaar) [address] [facility] Last Admin: 08/04/19 10:27 Dose: 25 mg Melatonin (Melatonin) [address] [facility] Last Admin: 08/03/19 21:32 Dose: 9 mg Metoprolol Succinate (Toprol Xl) [address] [facility] Last Admin: 08/04/19 10:28 Dose: 25 mg Ondansetron HCl (Zofran) 4 mg IV Q4H PRN PRN Reason: Nausea/Vomiting Phenobarbital (Phenobarbital) 97.[address] [facility] Last Admin: 08/04/19 09:05 Dose: 97.2 mg Phenytoin Sodium (Phenytoin) [address] [facility] Last Admin: 08/04/19 10:27 Dose: 200 mg Polyethylene Glycol (Miralax) 17 gm PO DAILY PRN PRN Reason: Constipation Sodium Chloride (Saline Flush) 10 ml FLUSH ASDIRECTED PRN PRN Reason: Keep Vein Open Tamsulosin HCl (Flomax) 0.[address] [facility] Last Admin: 08/04/19 10:26 Dose: 0.4 mg Thiamine HCl (Vitamin B-1) [address] [facility] Last Admin: 08/04/19 10:28 Dose: 100 mg Trazodone HCl (Trazodone) [address] [facility] Last Admin: 08/03/19 21:32 Dose: 150 mg Discontinued Medications Acetaminophen (Tylenol) 650 mg PO Q4H PRN PRN Reason: Pain (Mild 1-3)/fever Last Admin: 07/21/19 09:19 Dose: 325 mg Acetaminophen (Tylenol) Confirm Administered Dose 325 mg .ROUTE .STK-MED ONE Stop: 07/21/19 01:40 Last Admin: 07/21/19 04:04 Dose: Not Given Acetaminophen (Tylenol) Confirm Administered Dose 325 mg .ROUTE .STK-MED ONE Stop: 07/21/19 05:17 Last Admin: 07/21/19 05:18 Dose: Not Given Hydrocodone Bitart/Acetaminophen ([place] 325-5 Mg) 1 tab PO Q4H PRN PRN Reason: Pain (moderate 4-6) Last Admin: 07/27/19 07:03 Dose: 1 tab Apixaban (Eliquis) [address] [facility] Last Admin: 08/04/19 10:43 Dose: Not Given Gabapentin (Neurontin) [address] [facility] Stop: 07/23/19 09:47 Last Admin: 07/21/19 09:20 Dose: 400 mg Haloperidol Lactate (Haldol) 5 mg IM ONETIME ONE Stop: 07/19/19 17:21 Last Admin: 07/19/19 17:25 Dose: 5 mg Haloperidol Lactate (Haldol) 2 mg IVPUSH Q2H PRN PRN Reason: Agitation Last Admin: 07/19/19 21:00 Dose: 2 mg Multivitamins/Minerals 10 ml/Thiamine HCl 100 mg/ Folic Acid 1 mg/ Magnesium Sulfate 3 gm/ Sodium Chloride 1,017.2 mls @ 500 mls/hr IV ASDIRECTED ONE Stop: 07/19/19 17:47 Last Admin: 07/19/19 15:59 Dose: 500 mls/hr Sodium Chloride (Normal Saline) 1,000 mls @ 100 mls/hr IV ASDIRECTED [facility] Last Admin: 07/20/19 04:20 Dose: 100 mls/hr Lorazepam (Ativan) 0 mg IV ASDIRECTED [facility]; Protocol Lorazepam (Ativan) 0 mg PO ASDIRECTED [facility]; Protocol Lorazepam (Ativan) 0.5 mg PO ONETIME ONE Stop: 07/29/19 11:34 Last Admin: 07/29/19 11:41 Dose: 0.5 mg Metoprolol Succinate (Toprol Xl) 25 mg PO DAILY [facility] Stop: 07/20/19 09:15 Last Admin: 07/20/19 08:22 Dose: 25 mg Phenobarbital (Phenobarbital) 200 mg PO NOW STA Stop: 07/19/19 15:34 Last Admin: 07/19/19 16:01 Dose: Not Given Phenobarbital (Phenobarbital) 300 mg PO NOW STA Stop: 07/19/19 15:35 Last Admin: 07/19/19 15:51 Dose: 300 mg Sodium Chloride (Saline Flush) 10 ml FLUSH ASDIRECTED PRN PRN Reason: Keep Vein Open Last Admin: 07/19/19 16:01 Dose: 10 ml - Exam Quality Assessment: No: Supplemental Oxygen General: Alert, Oriented, Cooperative, No Acute Distress Lungs: Normal Respiratory Effort GI/Abdominal Exam: Soft, No Abnormal Bruit Extremities: No Pedal Edema Psy/Mental Status: Alert, Normal Affect Sepsis Event Note - Evaluation Sepsis Screening Result: No Definite Risk - Focused Exam Vital Signs: Vital Signs Temp Pulse Pulse Resp BP BP Pulse Ox 08/04/19 10:28 72 133/75 08/04/19 10:27 133/70 08/04/19 10:24 36.4 C 71 16 147/55 H 96 Date Exam was Performed: 08/04/19 Time Exam was Performed: 12:51 - Problem List Review Problem List Initiated/Reviewed/Updated: Yes - Plan Plan:: ASSESSMENT AND PLAN ALCOHOL ABUSE AND DEPENDENCE-stable. Commitment process has been initiated and preliminary hearing was completed 07/24. No behavior issues. Court date has been delayed by 1 week. 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 More stable now that he is not consuming alcohol, ambulating with use of his walker. 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 Patient has been stable since that time. We did review potential risks and benefits of both being on the medication versus being off. At this time he would like a trial off of the systemic anticoagulation. -Discontinue apixaban SEIZURES-No seizures during the hospital stay. -Continue outpatient meds HISTORY OF DVT-remote history. Chronically anticoagulated. -Continue apixaban MAINTENANCE ISSUES -DVT prophylaxis; apixaban -GI prophylaxis; PPI -Chavarria catheter; not indicated -Nutrition; 2 g sodium diet DISPOSITION-pending court proceeding for commitment Anthony Sotelo MD
[2019-08-04] MEDS: Melatonin 3 MG Tab PO SCH (21:46)
[2019-08-04] MEDS: traZODone 50 MG Tab PO SCH (21:46)
[2019-08-05] MEDS: Acetaminophen 325 MG Tab PO PRN ×5 (05:57→22:07)
[2019-08-05] MEDS: Acetaminophen/HYDROcodone 325-10 MG Tab PO PRN ×5 (05:57→22:06)
[2019-08-05] MEDS: Metoprolol Succinate 25 MG Tab.ER PO SCH (08:53)
[2019-08-05] MEDS: Tamsulosin 0.4 MG Cap.ER PO SCH (08:53)
[2019-08-05] MEDS: Thiamine 100 MG Tab PO SCH (08:54)
[2019-08-05] MEDS: Losartan 25 MG Tab PO SCH (08:54)
[2019-08-05] MEDS: PHENobarbital 32.4 MG Tab PO SCH ×2 (08:55→22:05)
[2019-08-05] MEDS: Citalopram 10 MG Tab PO SCH (08:55)
[2019-08-05] MEDS: Docusate Sodium 100 MG Cap PO SCH (08:55)
[2019-08-05] MEDS: Phenytoin 100 MG Cap.ER PO SCH ×2 (08:55→22:05)
[2019-08-05] MEDS: Folic Acid 1 MG Tab PO SCH (08:56)
--- NOTE | 2019-08-05 11:35 | PCM.PN ---
- General Info Date of Service: 08/05/19 Subjective Update: There were no acute events in last night. Patient has been stable. He has been ambulating independently. He continues to work with physical therapy and feels there is an ongoing benefit. Functional Status: Reports: Pain Controlled - Review of Systems General: Denies: Fever - Patient Data Vitals - Most Recent: Last Vital Signs Temp 36.2 C 08/05/19 09:00 Pulse 64 08/05/19 09:00 Resp 16 08/05/19 09:00 BP 124/45 L 08/05/19 09:00 Pulse Ox 96 08/05/19 09:00 Weight - Most Recent: 49.8 kg Med Orders - Current: Current Medications Acetaminophen (Tylenol) 325 mg PO Q4H PRN PRN Reason: Pain (Mild 1-3)/fever Last Admin: 08/05/19 09:58 Dose: 325 mg Hydrocodone Bitart/Acetaminophen ([place] 325-10 Mg) 1 tab PO Q4H PRN PRN Reason: Pain (moderate 4-6) Last Admin: 08/05/19 09:59 Dose: 1 tab Albuterol (Proventil Neb Soln) 2.5 mg NEB Q4H PRN PRN Reason: Shortness Of Breath/wheezing Citalopram Hydrobromide (Celexa) 30 mg PO DAILY [facility] Last Admin: 08/05/19 08:55 Dose: 30 mg Docusate Sodium (Colace) 100 mg PO DAILY [facility] Last Admin: 08/05/19 08:55 Dose: 100 mg Folic Acid (Folic Acid) 1 mg PO DAILY [facility] Last Admin: 08/05/19 08:56 Dose: 1 mg Losartan Potassium (Cozaar) 25 mg PO DAILY [facility] Last Admin: 08/05/19 08:54 Dose: 25 mg Melatonin (Melatonin) 9 mg PO BEDTIME [facility] Last Admin: 08/04/19 21:46 Dose: 9 mg Metoprolol Succinate (Toprol Xl) 25 mg PO DAILY [facility] Last Admin: 08/05/19 08:53 Dose: 25 mg Ondansetron HCl (Zofran) 4 mg IV Q4H PRN PRN Reason: Nausea/Vomiting Phenobarbital (Phenobarbital) 97.2 mg PO BID [facility] Last Admin: 08/05/19 08:55 Dose: 97.2 mg Phenytoin Sodium (Phenytoin) 200 mg PO BID [facility] Last Admin: 08/05/19 08:55 Dose: 200 mg Polyethylene Glycol (Miralax) 17 gm PO DAILY PRN PRN Reason: Constipation Sodium Chloride (Saline Flush) 10 ml FLUSH ASDIRECTED PRN PRN Reason: Keep Vein Open Tamsulosin HCl (Flomax) 0.4 mg PO DAILY [facility] Last Admin: 08/05/19 08:53 Dose: 0.4 mg Thiamine HCl (Vitamin B-1) 100 mg PO DAILY [facility] Last Admin: 08/05/19 08:54 Dose: 100 mg Trazodone HCl (Trazodone) 150 mg PO BEDTIME [facility] Last Admin: 08/04/19 21:46 Dose: 150 mg Discontinued Medications Acetaminophen (Tylenol) 650 mg PO Q4H PRN PRN Reason: Pain (Mild 1-3)/fever Last Admin: 07/21/19 09:19 Dose: 325 mg Acetaminophen (Tylenol) Confirm Administered Dose 325 mg .ROUTE .STK-MED ONE Stop: 07/21/19 01:40 Last Admin: 07/21/19 04:04 Dose: Not Given Acetaminophen (Tylenol) Confirm Administered Dose 325 mg .ROUTE .STK-MED ONE Stop: 07/21/19 05:17 Last Admin: 07/21/19 05:18 Dose: Not Given Hydrocodone Bitart/Acetaminophen ([place] 325-5 Mg) 1 tab PO Q4H PRN PRN Reason: Pain (moderate 4-6) Last Admin: 07/27/19 07:03 Dose: 1 tab Apixaban (Eliquis) 5 mg PO BID [facility] Last Admin: 08/04/19 10:43 Dose: Not Given Gabapentin (Neurontin) 400 mg PO Q8H [facility] Stop: 07/23/19 09:47 Last Admin: 07/21/19 09:20 Dose: 400 mg Haloperidol Lactate (Haldol) 5 mg IM ONETIME ONE Stop: 07/19/19 17:21 Last Admin: 07/19/19 17:25 Dose: 5 mg Haloperidol Lactate (Haldol) 2 mg IVPUSH Q2H PRN PRN Reason: Agitation Last Admin: 07/19/19 21:00 Dose: 2 mg Multivitamins/Minerals 10 ml/Thiamine HCl 100 mg/ Folic Acid 1 mg/ Magnesium Sulfate 3 gm/ Sodium Chloride 1,017.2 mls @ 500 mls/hr IV ASDIRECTED ONE Stop: 07/19/19 17:47 Last Admin: 07/19/19 15:59 Dose: 500 mls/hr Sodium Chloride (Normal Saline) 1,000 mls @ 100 mls/hr IV ASDIRECTED [facility] Last Admin: 07/20/19 04:20 Dose: 100 mls/hr Lorazepam (Ativan) 0 mg IV ASDIRECTED [facility]; Protocol Lorazepam (Ativan) 0 mg PO ASDIRECTED [facility]; Protocol Lorazepam (Ativan) 0.5 mg PO ONETIME ONE Stop: 07/29/19 11:34 Last Admin: 07/29/19 11:41 Dose: 0.5 mg Metoprolol Succinate (Toprol Xl) 25 mg PO DAILY [facility] Stop: 07/20/19 09:15 Last Admin: 07/20/19 08:22 Dose: 25 mg Phenobarbital (Phenobarbital) 200 mg PO NOW STA Stop: 07/19/19 15:34 Last Admin: 07/19/19 16:01 Dose: Not Given Phenobarbital (Phenobarbital) 300 mg PO NOW STA Stop: 07/19/19 15:35 Last Admin: 07/19/19 15:51 Dose: 300 mg Sodium Chloride (Saline Flush) 10 ml FLUSH ASDIRECTED PRN PRN Reason: Keep Vein Open Last Admin: 07/19/19 16:01 Dose: 10 ml - Exam Quality Assessment: No: Supplemental Oxygen General: Alert, Oriented, Cooperative, No Acute Distress Lungs: Normal Respiratory Effort GI/Abdominal Exam: Soft, No Distention Extremities: No Pedal Edema Psy/Mental Status: Alert, Normal Affect Sepsis Event Note - Evaluation Sepsis Screening Result: No Definite Risk - Focused Exam Vital Signs: Vital Signs Temp Pulse Pulse Resp BP BP Pulse Ox 08/05/19 09:00 36.2 C 64 16 124/45 L 96 08/05/19 08:54 124/45 L 08/05/19 08:53 70 124/45 L Date Exam was Performed: 08/05/19 Time Exam was Performed: 12:53 - Problem List Review Problem List Initiated/Reviewed/Updated: Yes - Plan Plan:: ASSESSMENT AND PLAN ALCOHOL ABUSE AND DEPENDENCE-stable. Commitment process has been initiated and preliminary hearing was completed 07/24. No behavior issues. Court date has been delayed by 1 week. -court hold is in place and active -second hearing on 08/11 -Saline lock IV RECURRENT FALLS-no issues during the hospital stay. He has been independent. 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 Currently off medications per patient request. SEIZURES-No seizures during the hospital stay. -Continue outpatient meds MAINTENANCE ISSUES -DVT prophylaxis; apixaban -GI prophylaxis; PPI -Chavarria catheter; not indicated -Nutrition; 2 g sodium diet DISPOSITION-pending court proceeding for commitment Anthony Sotelo MD
[2019-08-05] MEDS: Melatonin 3 MG Tab PO SCH (22:05)
[2019-08-05] MEDS: traZODone 50 MG Tab PO SCH (22:05)
[2019-08-06] MEDS: Acetaminophen/HYDROcodone 325-10 MG Tab PO PRN ×5 (06:23→22:31)
[2019-08-06] MEDS: Acetaminophen 325 MG Tab PO PRN ×5 (06:23→22:31)
[2019-08-06] MEDS: Citalopram 10 MG Tab PO SCH (08:55)
[2019-08-06] MEDS: Docusate Sodium 100 MG Cap PO SCH (08:56)
[2019-08-06] MEDS: Losartan 25 MG Tab PO SCH (08:56)
[2019-08-06] MEDS: Phenytoin 100 MG Cap.ER PO SCH ×2 (08:59→20:40)
[2019-08-06] MEDS: Tamsulosin 0.4 MG Cap.ER PO SCH (08:59)
[2019-08-06] MEDS: Folic Acid 1 MG Tab PO SCH (08:59)
[2019-08-06] MEDS: Thiamine 100 MG Tab PO SCH (09:00)
[2019-08-06] MEDS: Metoprolol Succinate 25 MG Tab.ER PO SCH (09:00)
[2019-08-06] MEDS: PHENobarbital 32.4 MG Tab PO SCH ×2 (09:02→20:40)
--- NOTE | 2019-08-06 15:25 | PCM.PN ---
- General Info Date of Service: 08/06/19 Subjective Update: No acute events overnight. He has been up and walking around with his walker. Chronic pain is stable. No behavior issues. - Patient Data Vitals - Most Recent: Last Vital Signs Temp 37.0 C 08/06/19 09:00 Pulse 86 08/06/19 09:00 Resp 18 08/06/19 09:00 BP 135/65 08/06/19 09:00 Pulse Ox 96 08/05/19 21:30 Weight - Most Recent: 49.8 kg Med Orders - Current: Current Medications Acetaminophen (Tylenol) 325 mg PO Q4H PRN PRN Reason: Pain (Mild 1-3)/fever Last Admin: 08/06/19 14:36 Dose: 325 mg Hydrocodone Bitart/Acetaminophen ([place] 325-10 Mg) 1 tab PO Q4H PRN PRN Reason: Pain (moderate 4-6) Last Admin: 08/06/19 14:37 Dose: 1 tab Albuterol (Proventil Neb Soln) 2.5 mg NEB Q4H PRN PRN Reason: Shortness Of Breath/wheezing Citalopram Hydrobromide (Celexa) 30 mg PO DAILY [facility] Last Admin: 08/06/19 08:55 Dose: 30 mg Docusate Sodium (Colace) 100 mg PO DAILY [facility] Last Admin: 08/06/19 08:56 Dose: 100 mg Folic Acid (Folic Acid) 1 mg PO DAILY [facility] Last Admin: 08/06/19 08:59 Dose: 1 mg Losartan Potassium (Cozaar) 25 mg PO DAILY [facility] Last Admin: 08/06/19 08:56 Dose: 25 mg Melatonin (Melatonin) 9 mg PO BEDTIME [facility] Last Admin: 08/05/19 22:05 Dose: 9 mg Metoprolol Succinate (Toprol Xl) 25 mg PO DAILY [facility] Last Admin: 08/06/19 09:00 Dose: 25 mg Ondansetron HCl (Zofran) 4 mg IV Q4H PRN PRN Reason: Nausea/Vomiting Phenobarbital (Phenobarbital) 97.2 mg PO BID [facility] Last Admin: 08/06/19 09:02 Dose: 97.2 mg Phenytoin Sodium (Phenytoin) 200 mg PO BID [facility] Last Admin: 08/06/19 08:59 Dose: 200 mg Polyethylene Glycol (Miralax) 17 gm PO DAILY PRN PRN Reason: Constipation Sodium Chloride (Saline Flush) 10 ml FLUSH ASDIRECTED PRN PRN Reason: Keep Vein Open Tamsulosin HCl (Flomax) 0.4 mg PO DAILY [facility] Last Admin: 08/06/19 08:59 Dose: 0.4 mg Thiamine HCl (Vitamin B-1) 100 mg PO DAILY [facility] Last Admin: 08/06/19 09:00 Dose: 100 mg Trazodone HCl (Trazodone) 150 mg PO BEDTIME [facility] Last Admin: 08/05/19 22:05 Dose: 150 mg Discontinued Medications Acetaminophen (Tylenol) 650 mg PO Q4H PRN PRN Reason: Pain (Mild 1-3)/fever Last Admin: 07/21/19 09:19 Dose: 325 mg Acetaminophen (Tylenol) Confirm Administered Dose 325 mg .ROUTE .STK-MED ONE Stop: 07/21/19 01:40 Last Admin: 07/21/19 04:04 Dose: Not Given Acetaminophen (Tylenol) Confirm Administered Dose 325 mg .ROUTE .STK-MED ONE Stop: 07/21/19 05:17 Last Admin: 07/21/19 05:18 Dose: Not Given Hydrocodone Bitart/Acetaminophen ([place] 325-5 Mg) 1 tab PO Q4H PRN PRN Reason: Pain (moderate 4-6) Last Admin: 07/27/19 07:03 Dose: 1 tab Apixaban (Eliquis) 5 mg PO BID [facility] Last Admin: 08/04/19 10:43 Dose: Not Given Gabapentin (Neurontin) 400 mg PO Q8H [facility] Stop: 07/23/19 09:47 Last Admin: 07/21/19 09:20 Dose: 400 mg Haloperidol Lactate (Haldol) 5 mg IM ONETIME ONE Stop: 07/19/19 17:21 Last Admin: 07/19/19 17:25 Dose: 5 mg Haloperidol Lactate (Haldol) 2 mg IVPUSH Q2H PRN PRN Reason: Agitation Last Admin: 07/19/19 21:00 Dose: 2 mg Multivitamins/Minerals 10 ml/Thiamine HCl 100 mg/ Folic Acid 1 mg/ Magnesium Sulfate 3 gm/ Sodium Chloride 1,017.2 mls @ 500 mls/hr IV ASDIRECTED ONE Stop: 07/19/19 17:47 Last Admin: 07/19/19 15:59 Dose: 500 mls/hr Sodium Chloride (Normal Saline) 1,000 mls @ 100 mls/hr IV ASDIRECTED [facility] Last Admin: 07/20/19 04:20 Dose: 100 mls/hr Lorazepam (Ativan) 0 mg IV ASDIRECTED [facility]; Protocol Lorazepam (Ativan) 0 mg PO ASDIRECTED [facility]; Protocol Lorazepam (Ativan) 0.5 mg PO ONETIME ONE Stop: 07/29/19 11:34 Last Admin: 07/29/19 11:41 Dose: 0.5 mg Metoprolol Succinate (Toprol Xl) 25 mg PO DAILY [facility] Stop: 07/20/19 09:15 Last Admin: 07/20/19 08:22 Dose: 25 mg Phenobarbital (Phenobarbital) 200 mg PO NOW STA Stop: 07/19/19 15:34 Last Admin: 07/19/19 16:01 Dose: Not Given Phenobarbital (Phenobarbital) 300 mg PO NOW STA Stop: 07/19/19 15:35 Last Admin: 07/19/19 15:51 Dose: 300 mg Sodium Chloride (Saline Flush) 10 ml FLUSH ASDIRECTED PRN PRN Reason: Keep Vein Open Last Admin: 07/19/19 16:01 Dose: 10 ml - Exam Quality Assessment: No: Supplemental Oxygen General: Alert, Oriented, Cooperative, No Acute Distress Lungs: Normal Respiratory Effort GI/Abdominal Exam: No Distention Psy/Mental Status: Alert, Normal Affect Sepsis Event Note - Evaluation Sepsis Screening Result: No Definite Risk - Focused Exam Vital Signs: Vital Signs Temp Pulse Pulse Resp BP BP 08/06/19 09:00 37.0 C 86 86 18 135/65 135/65 08/06/19 08:56 135/65 Date Exam was Performed: 08/06/19 Time Exam was Performed: 15:24 - Problem List Review Problem List Initiated/Reviewed/Updated: Yes - Plan Plan:: ASSESSMENT AND PLAN ALCOHOL ABUSE AND DEPENDENCE-stable. Commitment process has been initiated and preliminary hearing was completed 07/24. No behavior issues. Court date has been delayed by 1 week. -court hold is in place and active -second hearing on 08/11 -Saline lock IV RECURRENT FALLS-no issues during the hospital stay. He has been independent. 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 Currently off medications per patient request. SEIZURES-No seizures during the hospital stay. -Continue outpatient meds MAINTENANCE ISSUES -DVT prophylaxis; ambulatory -GI prophylaxis; PPI -Chavarria catheter; not indicated -Nutrition; 2 g sodium diet DISPOSITION-pending court proceeding for commitment Anthony Sotelo MD
[2019-08-06] MEDS: traZODone 50 MG Tab PO SCH (20:40)
[2019-08-06] MEDS: Melatonin 3 MG Tab PO SCH (20:40)
[2019-08-07] MEDS: Acetaminophen 325 MG Tab PO PRN ×5 (03:35→20:06)
[2019-08-07] MEDS: Acetaminophen/HYDROcodone 325-10 MG Tab PO PRN ×5 (03:35→20:06)
[2019-08-07] MEDS: Losartan 25 MG Tab PO SCH (09:14)
[2019-08-07] MEDS: Docusate Sodium 100 MG Cap PO SCH (09:14)
[2019-08-07] MEDS: Phenytoin 100 MG Cap.ER PO SCH ×2 (09:15→21:09)
[2019-08-07] MEDS: Metoprolol Succinate 25 MG Tab.ER PO SCH (09:15)
[2019-08-07] MEDS: Citalopram 10 MG Tab PO SCH (09:16)
[2019-08-07] MEDS: Thiamine 100 MG Tab PO SCH (09:16)
[2019-08-07] MEDS: Tamsulosin 0.4 MG Cap.ER PO SCH (09:16)
[2019-08-07] MEDS: Folic Acid 1 MG Tab PO SCH (09:16)
[2019-08-07] MEDS: PHENobarbital 32.4 MG Tab PO SCH ×2 (09:18→21:09)
--- NOTE | 2019-08-07 10:37 | PCM.PN ---
- General Info Date of Service: 08/07/19 Subjective Update: No acute events overnight. No behavior issues. Ambulating independently. Back pain is a little more bothersome today than usual. Functional Status: Reports: Pain Controlled, Tolerating Diet - Review of Systems Musculoskeletal: Reports: Back Pain - Patient Data Vitals - Most Recent: Last Vital Signs Temp 36.2 C 08/07/19 09:13 Pulse 64 08/07/19 09:15 Resp 16 08/07/19 09:13 BP 139/48 L 08/07/19 09:15 Pulse Ox 96 08/07/19 09:13 Weight - Most Recent: 49.8 kg Med Orders - Current: Current Medications Acetaminophen (Tylenol) 325 mg PO Q4H PRN PRN Reason: Pain (Mild 1-3)/fever Last Admin: 08/07/19 07:36 Dose: 325 mg Hydrocodone Bitart/Acetaminophen ([place] 325-10 Mg) 1 tab PO Q4H PRN PRN Reason: Pain (moderate 4-6) Last Admin: 08/07/19 07:35 Dose: 1 tab Albuterol (Proventil Neb Soln) 2.5 mg NEB Q4H PRN PRN Reason: Shortness Of Breath/wheezing Citalopram Hydrobromide (Celexa) 30 mg PO DAILY [facility] Last Admin: 08/07/19 09:16 Dose: 30 mg Docusate Sodium (Colace) 100 mg PO DAILY [facility] Last Admin: 08/07/19 09:14 Dose: 100 mg Folic Acid (Folic Acid) 1 mg PO DAILY [facility] Last Admin: 08/07/19 09:16 Dose: 1 mg Losartan Potassium (Cozaar) 25 mg PO DAILY [facility] Last Admin: 08/07/19 09:14 Dose: 25 mg Melatonin (Melatonin) 9 mg PO BEDTIME [facility] Last Admin: 08/06/19 20:40 Dose: 9 mg Metoprolol Succinate (Toprol Xl) 25 mg PO DAILY [facility] Last Admin: 08/07/19 09:15 Dose: 25 mg Ondansetron HCl (Zofran) 4 mg IV Q4H PRN PRN Reason: Nausea/Vomiting Phenobarbital (Phenobarbital) 97.2 mg PO BID [facility] Last Admin: 08/07/19 09:18 Dose: 97.2 mg Phenytoin Sodium (Phenytoin) 200 mg PO BID [facility] Last Admin: 08/07/19 09:15 Dose: 200 mg Polyethylene Glycol (Miralax) 17 gm PO DAILY PRN PRN Reason: Constipation Sodium Chloride (Saline Flush) 10 ml FLUSH ASDIRECTED PRN PRN Reason: Keep Vein Open Tamsulosin HCl (Flomax) 0.4 mg PO DAILY [facility] Last Admin: 08/07/19 09:16 Dose: 0.4 mg Thiamine HCl (Vitamin B-1) 100 mg PO DAILY [facility] Last Admin: 08/07/19 09:16 Dose: 100 mg Trazodone HCl (Trazodone) 150 mg PO BEDTIME [facility] Last Admin: 08/06/19 20:40 Dose: 150 mg Discontinued Medications Acetaminophen (Tylenol) 650 mg PO Q4H PRN PRN Reason: Pain (Mild 1-3)/fever Last Admin: 07/21/19 09:19 Dose: 325 mg Acetaminophen (Tylenol) Confirm Administered Dose 325 mg .ROUTE .STK-MED ONE Stop: 07/21/19 01:40 Last Admin: 07/21/19 04:04 Dose: Not Given Acetaminophen (Tylenol) Confirm Administered Dose 325 mg .ROUTE .STK-MED ONE Stop: 07/21/19 05:17 Last Admin: 07/21/19 05:18 Dose: Not Given Hydrocodone Bitart/Acetaminophen ([place] 325-5 Mg) 1 tab PO Q4H PRN PRN Reason: Pain (moderate 4-6) Last Admin: 07/27/19 07:03 Dose: 1 tab Apixaban (Eliquis) 5 mg PO BID [facility] Last Admin: 08/04/19 10:43 Dose: Not Given Gabapentin (Neurontin) 400 mg PO Q8H [facility] Stop: 07/23/19 09:47 Last Admin: 07/21/19 09:20 Dose: 400 mg Haloperidol Lactate (Haldol) 5 mg IM ONETIME ONE Stop: 07/19/19 17:21 Last Admin: 07/19/19 17:25 Dose: 5 mg Haloperidol Lactate (Haldol) 2 mg IVPUSH Q2H PRN PRN Reason: Agitation Last Admin: 07/19/19 21:00 Dose: 2 mg Multivitamins/Minerals 10 ml/Thiamine HCl 100 mg/ Folic Acid 1 mg/ Magnesium Sulfate 3 gm/ Sodium Chloride 1,017.2 mls @ 500 mls/hr IV ASDIRECTED ONE Stop: 07/19/19 17:47 Last Admin: 07/19/19 15:59 Dose: 500 mls/hr Sodium Chloride (Normal Saline) 1,000 mls @ 100 mls/hr IV ASDIRECTED [facility] Last Admin: 07/20/19 04:20 Dose: 100 mls/hr Lorazepam (Ativan) 0 mg IV ASDIRECTED [facility]; Protocol Lorazepam (Ativan) 0 mg PO ASDIRECTED [facility]; Protocol Lorazepam (Ativan) 0.5 mg PO ONETIME ONE Stop: 07/29/19 11:34 Last Admin: 07/29/19 11:41 Dose: 0.5 mg Metoprolol Succinate (Toprol Xl) 25 mg PO DAILY [facility] Stop: 07/20/19 09:15 Last Admin: 07/20/19 08:22 Dose: 25 mg Phenobarbital (Phenobarbital) 200 mg PO NOW STA Stop: 07/19/19 15:34 Last Admin: 07/19/19 16:01 Dose: Not Given Phenobarbital (Phenobarbital) 300 mg PO NOW STA Stop: 07/19/19 15:35 Last Admin: 07/19/19 15:51 Dose: 300 mg Sodium Chloride (Saline Flush) 10 ml FLUSH ASDIRECTED PRN PRN Reason: Keep Vein Open Last Admin: 07/19/19 16:01 Dose: 10 ml - Exam Quality Assessment: No: Supplemental Oxygen General: Alert, Oriented, Cooperative, No Acute Distress Lungs: Normal Respiratory Effort GI/Abdominal Exam: Soft, No Distention Psy/Mental Status: Alert, Normal Affect Sepsis Event Note - Evaluation Sepsis Screening Result: No Definite Risk - Focused Exam Vital Signs: Vital Signs Temp Pulse Pulse Resp BP BP Pulse Ox 08/07/19 09:15 64 139/48 L 08/07/19 09:14 139/48 L 08/07/19 09:13 36.2 C 64 16 139/48 L 96 Date Exam was Performed: 08/07/19 Time Exam was Performed: 14:15 - Problem List Review Problem List Initiated/Reviewed/Updated: Yes - Plan Plan:: ASSESSMENT AND PLAN ALCOHOL ABUSE AND DEPENDENCE-stable. Commitment process has been initiated and preliminary hearing was completed 07/24. No behavior issues. Court date has been delayed by 1 week. -court hold is in place and active -second hearing on 08/11 -Saline lock IV RECURRENT FALLS-no issues during the hospital stay. He has been independent. 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 Currently off medications per patient request. SEIZURES-No seizures during the hospital stay. -Continue outpatient meds MAINTENANCE ISSUES -DVT prophylaxis; ambulatory -GI prophylaxis; PPI -Chavarria catheter; not indicated -Nutrition; 2 g sodium diet DISPOSITION-pending court proceeding for commitment Anthony Sotelo MD
[2019-08-07] MEDS: Melatonin 3 MG Tab PO SCH (21:09)
[2019-08-07] MEDS: traZODone 50 MG Tab PO SCH (21:10)
[2019-08-08] MEDS: Acetaminophen 325 MG Tab PO PRN ×5 (03:02→19:19)
[2019-08-08] MEDS: Acetaminophen/HYDROcodone 325-10 MG Tab PO PRN ×5 (03:02→19:19)
--- NOTE | 2019-08-08 10:21 | PCM.PN ---
- General Info Date of Service: 08/08/19 Subjective Update: No acute events overnight. Back pain is stable. No seizures. No behavior issues. Up and moving around. - Patient Data Vitals - Most Recent: Last Vital Signs Temp 36.7 C 08/07/19 20:05 Pulse 66 08/07/19 20:05 Resp 16 08/07/19 20:05 BP 119/43 L 08/07/19 20:05 Pulse Ox 95 08/07/19 20:05 Weight - Most Recent: 49.8 kg Med Orders - Current: Current Medications Acetaminophen (Tylenol) 325 mg PO Q4H PRN PRN Reason: Pain (Mild 1-3)/fever Last Admin: 08/08/19 07:15 Dose: 325 mg Hydrocodone Bitart/Acetaminophen ([place] 325-10 Mg) 1 tab PO Q4H PRN PRN Reason: Pain (moderate 4-6) Last Admin: 08/08/19 07:15 Dose: 1 tab Albuterol (Proventil Neb Soln) 2.5 mg NEB Q4H PRN PRN Reason: Shortness Of Breath/wheezing Citalopram Hydrobromide (Celexa) 30 mg PO DAILY [facility] Last Admin: 08/07/19 09:16 Dose: 30 mg Docusate Sodium (Colace) 100 mg PO DAILY [facility] Last Admin: 08/07/19 09:14 Dose: 100 mg Folic Acid (Folic Acid) 1 mg PO DAILY [facility] Last Admin: 08/07/19 09:16 Dose: 1 mg Losartan Potassium (Cozaar) 25 mg PO DAILY [facility] Last Admin: 08/07/19 09:14 Dose: 25 mg Melatonin (Melatonin) 9 mg PO BEDTIME [facility] Last Admin: 08/07/19 21:09 Dose: 9 mg Metoprolol Succinate (Toprol Xl) 25 mg PO DAILY [facility] Last Admin: 08/07/19 09:15 Dose: 25 mg Ondansetron HCl (Zofran) 4 mg IV Q4H PRN PRN Reason: Nausea/Vomiting Phenobarbital (Phenobarbital) 97.2 mg PO BID [facility] Last Admin: 08/07/19 21:09 Dose: 97.2 mg Phenytoin Sodium (Phenytoin) 200 mg PO BID [facility] Last Admin: 08/07/19 21:09 Dose: 200 mg Polyethylene Glycol (Miralax) 17 gm PO DAILY PRN PRN Reason: Constipation Sodium Chloride (Saline Flush) 10 ml FLUSH ASDIRECTED PRN PRN Reason: Keep Vein Open Tamsulosin HCl (Flomax) 0.4 mg PO DAILY [facility] Last Admin: 08/07/19 09:16 Dose: 0.4 mg Thiamine HCl (Vitamin B-1) 100 mg PO DAILY [facility] Last Admin: 08/07/19 09:16 Dose: 100 mg Trazodone HCl (Trazodone) 150 mg PO BEDTIME [facility] Last Admin: 08/07/19 21:10 Dose: 150 mg Discontinued Medications Acetaminophen (Tylenol) 650 mg PO Q4H PRN PRN Reason: Pain (Mild 1-3)/fever Last Admin: 07/21/19 09:19 Dose: 325 mg Acetaminophen (Tylenol) Confirm Administered Dose 325 mg .ROUTE .STK-MED ONE Stop: 07/21/19 01:40 Last Admin: 07/21/19 04:04 Dose: Not Given Acetaminophen (Tylenol) Confirm Administered Dose 325 mg .ROUTE .STK-MED ONE Stop: 07/21/19 05:17 Last Admin: 07/21/19 05:18 Dose: Not Given Hydrocodone Bitart/Acetaminophen ([place] 325-5 Mg) 1 tab PO Q4H PRN PRN Reason: Pain (moderate 4-6) Last Admin: 07/27/19 07:03 Dose: 1 tab Apixaban (Eliquis) 5 mg PO BID [facility] Last Admin: 08/04/19 10:43 Dose: Not Given Gabapentin (Neurontin) 400 mg PO Q8H [facility] Stop: 07/23/19 09:47 Last Admin: 07/21/19 09:20 Dose: 400 mg Haloperidol Lactate (Haldol) 5 mg IM ONETIME ONE Stop: 07/19/19 17:21 Last Admin: 07/19/19 17:25 Dose: 5 mg Haloperidol Lactate (Haldol) 2 mg IVPUSH Q2H PRN PRN Reason: Agitation Last Admin: 07/19/19 21:00 Dose: 2 mg Multivitamins/Minerals 10 ml/Thiamine HCl 100 mg/ Folic Acid 1 mg/ Magnesium Sulfate 3 gm/ Sodium Chloride 1,017.2 mls @ 500 mls/hr IV ASDIRECTED ONE Stop: 07/19/19 17:47 Last Admin: 07/19/19 15:59 Dose: 500 mls/hr Sodium Chloride (Normal Saline) 1,000 mls @ 100 mls/hr IV ASDIRECTED [facility] Last Admin: 07/20/19 04:20 Dose: 100 mls/hr Lorazepam (Ativan) 0 mg IV ASDIRECTED [facility]; Protocol Lorazepam (Ativan) 0 mg PO ASDIRECTED [facility]; Protocol Lorazepam (Ativan) 0.5 mg PO ONETIME ONE Stop: 07/29/19 11:34 Last Admin: 07/29/19 11:41 Dose: 0.5 mg Metoprolol Succinate (Toprol Xl) 25 mg PO DAILY [facility] Stop: 07/20/19 09:15 Last Admin: 07/20/19 08:22 Dose: 25 mg Phenobarbital (Phenobarbital) 200 mg PO NOW STA Stop: 07/19/19 15:34 Last Admin: 07/19/19 16:01 Dose: Not Given Phenobarbital (Phenobarbital) 300 mg PO NOW STA Stop: 07/19/19 15:35 Last Admin: 07/19/19 15:51 Dose: 300 mg Sodium Chloride (Saline Flush) 10 ml FLUSH ASDIRECTED PRN PRN Reason: Keep Vein Open Last Admin: 07/19/19 16:01 Dose: 10 ml - Exam General: Alert, Oriented, Cooperative, No Acute Distress Lungs: Normal Respiratory Effort GI/Abdominal Exam: Soft, No Distention Psy/Mental Status: Alert, Normal Affect Sepsis Event Note - Evaluation Sepsis Screening Result: No Definite Risk - Problem List Review Problem List Initiated/Reviewed/Updated: Yes - Plan Plan:: ASSESSMENT AND PLAN ALCOHOL ABUSE AND DEPENDENCE-stable. Commitment process has been initiated and preliminary hearing was completed 07/24. No behavior issues. Court date has been delayed by 1 week. Examining physician was here today. -court hold is in place and active -second hearing on 08/11 -Saline lock IV RECURRENT FALLS-no issues during the hospital stay. He has been independent. 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 Currently off medications per patient request. SEIZURES-No seizures during the hospital stay. -Continue outpatient meds MAINTENANCE ISSUES -DVT prophylaxis; ambulatory -GI prophylaxis; PPI -Chavarria catheter; not indicated -Nutrition; 2 g sodium diet DISPOSITION-pending court proceeding for commitment Anthony Sotelo MD
[2019-08-08] MEDS: Citalopram 10 MG Tab PO SCH (11:25)
[2019-08-08] MEDS: Docusate Sodium 100 MG Cap PO SCH (11:25)
[2019-08-08] MEDS: Losartan 25 MG Tab PO SCH (11:26)
[2019-08-08] MEDS: Tamsulosin 0.4 MG Cap.ER PO SCH (11:26)
[2019-08-08] MEDS: Phenytoin 100 MG Cap.ER PO SCH ×2 (11:27→21:20)
[2019-08-08] MEDS: Thiamine 100 MG Tab PO SCH (11:27)
[2019-08-08] MEDS: Folic Acid 1 MG Tab PO SCH (11:27)
[2019-08-08] MEDS: Metoprolol Succinate 25 MG Tab.ER PO SCH (11:28)
[2019-08-08] MEDS: PHENobarbital 32.4 MG Tab PO SCH ×2 (11:33→21:20)
[2019-08-08] MEDS: Melatonin 3 MG Tab PO SCH (21:20)
[2019-08-08] MEDS: traZODone 50 MG Tab PO SCH (21:20)
[2019-08-09] MEDS: Acetaminophen/HYDROcodone 325-10 MG Tab PO PRN ×6 (02:22→21:03)
[2019-08-09] MEDS: Acetaminophen 325 MG Tab PO PRN ×6 (02:22→21:03)
[2019-08-09] MEDS: PHENobarbital 32.4 MG Tab PO SCH ×2 (08:06→21:02)
[2019-08-09] MEDS: Phenytoin 100 MG Cap.ER PO SCH ×2 (08:07→21:02)
[2019-08-09] MEDS: Citalopram 10 MG Tab PO SCH (08:07)
[2019-08-09] MEDS: Docusate Sodium 100 MG Cap PO SCH (08:07)
[2019-08-09] MEDS: Metoprolol Succinate 25 MG Tab.ER PO SCH (08:08)
[2019-08-09] MEDS: Losartan 25 MG Tab PO SCH (08:08)
[2019-08-09] MEDS: Folic Acid 1 MG Tab PO SCH (08:09)
[2019-08-09] MEDS: Thiamine 100 MG Tab PO SCH (08:09)
[2019-08-09] MEDS: Tamsulosin 0.4 MG Cap.ER PO SCH (08:09)
--- NOTE | 2019-08-09 10:19 | PCM.PN ---
- General Info Date of Service: 08/09/19 Subjective Update: No acute events overnight. Patient continues to be independent. No behavior issues. No seizures. This morning he did ask about switching to a long-acting medication for his pain such as a fentanyl patch. I discussed with him that I am skeptical he will find an outpatient provider willing to prescribe this medication and would rather not initiate this so close to hospital discharge. I did encourage him to establish primary care after his hospital stay and possibly his commitment and discuss long-term pain management. Functional Status: Reports: Tolerating Diet - Review of Systems General: Denies: Fever - Patient Data Vitals - Most Recent: Last Vital Signs Temp 37.2 C 08/08/19 21:00 Pulse 63 08/09/19 08:08 Resp 16 08/08/19 21:00 BP 117/51 L 08/09/19 08:08 Pulse Ox 97 08/08/19 21:00 Weight - Most Recent: 49.8 kg Med Orders - Current: Current Medications Acetaminophen (Tylenol) 325 mg PO Q4H PRN PRN Reason: Pain (Mild 1-3)/fever Last Admin: 08/09/19 06:47 Dose: 325 mg Hydrocodone Bitart/Acetaminophen ([place] 325-10 Mg) 1 tab PO Q4H PRN PRN Reason: Pain (moderate 4-6) Last Admin: 08/09/19 06:47 Dose: 1 tab Albuterol (Proventil Neb Soln) 2.5 mg NEB Q4H PRN PRN Reason: Shortness Of Breath/wheezing Citalopram Hydrobromide (Celexa) 30 mg PO DAILY [facility] Last Admin: 08/09/19 08:07 Dose: 30 mg Docusate Sodium (Colace) 100 mg PO DAILY [facility] Last Admin: 08/09/19 08:07 Dose: 100 mg Folic Acid (Folic Acid) 1 mg PO DAILY [facility] Last Admin: 08/09/19 08:09 Dose: 1 mg Losartan Potassium (Cozaar) 25 mg PO DAILY [facility] Last Admin: 08/09/19 08:08 Dose: 25 mg Melatonin (Melatonin) 9 mg PO BEDTIME [facility] Last Admin: 08/08/19 21:20 Dose: 9 mg Metoprolol Succinate (Toprol Xl) 25 mg PO DAILY [facility] Last Admin: 08/09/19 08:08 Dose: 25 mg Ondansetron HCl (Zofran) 4 mg IV Q4H PRN PRN Reason: Nausea/Vomiting Phenobarbital (Phenobarbital) 97.2 mg PO BID [facility] Last Admin: 08/09/19 08:06 Dose: 97.2 mg Phenytoin Sodium (Phenytoin) 200 mg PO BID [facility] Last Admin: 08/09/19 08:07 Dose: 200 mg Polyethylene Glycol (Miralax) 17 gm PO DAILY PRN PRN Reason: Constipation Sodium Chloride (Saline Flush) 10 ml FLUSH ASDIRECTED PRN PRN Reason: Keep Vein Open Tamsulosin HCl (Flomax) 0.4 mg PO DAILY [facility] Last Admin: 08/09/19 08:09 Dose: 0.4 mg Thiamine HCl (Vitamin B-1) 100 mg PO DAILY [facility] Last Admin: 08/09/19 08:09 Dose: 100 mg Trazodone HCl (Trazodone) 150 mg PO BEDTIME [facility] Last Admin: 08/08/19 21:20 Dose: 150 mg Discontinued Medications Acetaminophen (Tylenol) 650 mg PO Q4H PRN PRN Reason: Pain (Mild 1-3)/fever Last Admin: 07/21/19 09:19 Dose: 325 mg Acetaminophen (Tylenol) Confirm Administered Dose 325 mg .ROUTE .STK-MED ONE Stop: 07/21/19 01:40 Last Admin: 07/21/19 04:04 Dose: Not Given Acetaminophen (Tylenol) Confirm Administered Dose 325 mg .ROUTE .STK-MED ONE Stop: 07/21/19 05:17 Last Admin: 07/21/19 05:18 Dose: Not Given Hydrocodone Bitart/Acetaminophen ([place] 325-5 Mg) 1 tab PO Q4H PRN PRN Reason: Pain (moderate 4-6) Last Admin: 07/27/19 07:03 Dose: 1 tab Apixaban (Eliquis) 5 mg PO BID [facility] Last Admin: 08/04/19 10:43 Dose: Not Given Gabapentin (Neurontin) 400 mg PO Q8H [facility] Stop: 07/23/19 09:47 Last Admin: 07/21/19 09:20 Dose: 400 mg Haloperidol Lactate (Haldol) 5 mg IM ONETIME ONE Stop: 07/19/19 17:21 Last Admin: 07/19/19 17:25 Dose: 5 mg Haloperidol Lactate (Haldol) 2 mg IVPUSH Q2H PRN PRN Reason: Agitation Last Admin: 07/19/19 21:00 Dose: 2 mg Multivitamins/Minerals 10 ml/Thiamine HCl 100 mg/ Folic Acid 1 mg/ Magnesium Sulfate 3 gm/ Sodium Chloride 1,017.2 mls @ 500 mls/hr IV ASDIRECTED ONE Stop: 07/19/19 17:47 Last Admin: 07/19/19 15:59 Dose: 500 mls/hr Sodium Chloride (Normal Saline) 1,000 mls @ 100 mls/hr IV ASDIRECTED [facility] Last Admin: 07/20/19 04:20 Dose: 100 mls/hr Lorazepam (Ativan) 0 mg IV ASDIRECTED [facility]; Protocol Lorazepam (Ativan) 0 mg PO ASDIRECTED [facility]; Protocol Lorazepam (Ativan) 0.5 mg PO ONETIME ONE Stop: 07/29/19 11:34 Last Admin: 07/29/19 11:41 Dose: 0.5 mg Metoprolol Succinate (Toprol Xl) 25 mg PO DAILY [facility] Stop: 07/20/19 09:15 Last Admin: 07/20/19 08:22 Dose: 25 mg Phenobarbital (Phenobarbital) 200 mg PO NOW STA Stop: 07/19/19 15:34 Last Admin: 07/19/19 16:01 Dose: Not Given Phenobarbital (Phenobarbital) 300 mg PO NOW ST[facility] Stop: 07/19/19 15:35 Last Admin: 07/19/19 15:51 Dose: 300 mg Sodium Chloride (Saline Flush) 10 ml FLUSH ASDIRECTED PRN PRN Reason: Keep Vein Open Last Admin: 07/19/19 16:01 Dose: 10 ml - Exam Quality Assessment: No: Supplemental Oxygen General: Alert, Oriented, Cooperative, No Acute Distress Lungs: Normal Respiratory Effort GI/Abdominal Exam: Soft, No Distention Psy/Mental Status: Alert, Normal Affect Sepsis Event Note - Evaluation Sepsis Screening Result: No Definite Risk - Focused Exam Vital Signs: Vital Signs Pulse BP 08/09/19 08:08 63 117/51 L Date Exam was Performed: 08/09/19 Time Exam was Performed: 12:35 - Problem List Review Problem List Initiated/Reviewed/Updated: Yes - Plan Plan:: ASSESSMENT AND PLAN ALCOHOL ABUSE AND DEPENDENCE-stable. Commitment process has been initiated and preliminary hearing was completed 07/24. No behavior issues. Court date has been delayed by 1 week. Examining physician was here yesterday. -court hold is in place and active -second hearing on 08/11 -Saline lock IV RECURRENT FALLS-no issues during the hospital stay. He has been independent. 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 Currently off medications per patient request. CHRONIC BACK PAIN-history of compression fractures. Long-term issues with pain which is currently stable. I suspect that he will be weaned off of his pain medications after hospital discharge. He will need to establish care and consider pain clinic referral after hospital discharge. SEIZURES-No seizures during the hospital stay. -Continue outpatient meds MAINTENANCE ISSUES -DVT prophylaxis; ambulatory -GI prophylaxis; PPI -Chavarria catheter; not indicated -Nutrition; 2 g sodium diet DISPOSITION-pending court proceeding for commitment Anthony Sotelo MD
[2019-08-09] MEDS: traZODone 50 MG Tab PO SCH (21:02)
[2019-08-09] MEDS: Melatonin 3 MG Tab PO SCH (21:02)
[2019-08-10] MEDS: Acetaminophen/HYDROcodone 325-10 MG Tab PO PRN ×5 (03:00→20:06)
[2019-08-10] MEDS: Acetaminophen 325 MG Tab PO PRN ×5 (03:00→20:06)
[2019-08-10] MEDS: Citalopram 10 MG Tab PO SCH (08:33)
[2019-08-10] MEDS: Tamsulosin 0.4 MG Cap.ER PO SCH (08:33)
[2019-08-10] MEDS: Docusate Sodium 100 MG Cap PO SCH (08:33)
[2019-08-10] MEDS: Thiamine 100 MG Tab PO SCH (08:33)
[2019-08-10] MEDS: Metoprolol Succinate 25 MG Tab.ER PO SCH (08:33)
[2019-08-10] MEDS: Phenytoin 100 MG Cap.ER PO SCH ×2 (08:34→20:43)
[2019-08-10] MEDS: Losartan 25 MG Tab PO SCH (08:34)
[2019-08-10] MEDS: Folic Acid 1 MG Tab PO SCH (08:34)
[2019-08-10] MEDS: PHENobarbital 32.4 MG Tab PO SCH ×2 (11:43→20:43)
[2019-08-10] MEDS ORDERED: PHENobarbital 32.4 MG Tab PO ONE (11:45)
--- NOTE | 2019-08-10 12:13 | PCM.PN ---
- General Info Date of Service: 08/10/19 Subjective Update: Mr. Degroot has been stable since yesterday, vital signs have been good and he has remained afebrile. Waiting for his commitment hearing tomorrow where a final decision should be made. Functional Status: Reports: Tolerating Diet, Ambulating, Urinating - Review of Systems General: Reports: No Symptoms Pulmonary: Reports: No Symptoms Cardiovascular: Reports: No Symptoms Gastrointestinal: Reports: No Symptoms - Patient Data Vitals - Most Recent: Last Vital Signs Temp 95.3 F L 08/10/19 07:29 Pulse 64 08/10/19 08:33 Resp 16 08/10/19 07:29 BP 140/61 08/10/19 08:34 Pulse Ox 96 08/10/19 07:29 Weight - Most Recent: 109 lb 12.643 oz Med Orders - Current: Current Medications Acetaminophen (Tylenol) 325 mg PO Q4H PRN PRN Reason: Pain (Mild 1-3)/fever Last Admin: 08/10/19 11:31 Dose: 325 mg Hydrocodone Bitart/Acetaminophen ([place] 325-10 Mg) 1 tab PO Q4H PRN PRN Reason: Pain (moderate 4-6) Last Admin: 08/10/19 11:31 Dose: 1 tab Albuterol (Proventil Neb Soln) 2.5 mg NEB Q4H PRN PRN Reason: Shortness Of Breath/wheezing Citalopram Hydrobromide (Celexa) 30 mg PO DAILY [facility] Last Admin: 08/10/19 08:33 Dose: 30 mg Docusate Sodium (Colace) 100 mg PO DAILY [facility] Last Admin: 08/10/19 08:33 Dose: 100 mg Folic Acid (Folic Acid) 1 mg PO DAILY [facility] Last Admin: 08/10/19 08:34 Dose: 1 mg Losartan Potassium (Cozaar) 25 mg PO DAILY [facility] Last Admin: 08/10/19 08:34 Dose: 25 mg Melatonin (Melatonin) 9 mg PO BEDTIME [facility] Last Admin: 08/09/19 21:02 Dose: 9 mg Metoprolol Succinate (Toprol Xl) 25 mg PO DAILY [facility] Last Admin: 08/10/19 08:33 Dose: 25 mg Ondansetron HCl (Zofran) 4 mg IV Q4H PRN PRN Reason: Nausea/Vomiting Phenobarbital (Phenobarbital) 97.2 mg PO BID [facility] Last Admin: 08/10/19 11:43 Dose: Not Given Phenytoin Sodium (Phenytoin) 200 mg PO BID [facility] Last Admin: 08/10/19 08:34 Dose: 200 mg Polyethylene Glycol (Miralax) 17 gm PO DAILY PRN PRN Reason: Constipation Sodium Chloride (Saline Flush) 10 ml FLUSH ASDIRECTED PRN PRN Reason: Keep Vein Open Tamsulosin HCl (Flomax) 0.4 mg PO DAILY [facility] Last Admin: 08/10/19 08:33 Dose: 0.4 mg Thiamine HCl (Vitamin B-1) 100 mg PO DAILY [facility] Last Admin: 08/10/19 08:33 Dose: 100 mg Trazodone HCl (Trazodone) 150 mg PO BEDTIME [facility] Last Admin: 08/09/19 21:02 Dose: 150 mg Discontinued Medications Acetaminophen (Tylenol) 650 mg PO Q4H PRN PRN Reason: Pain (Mild 1-3)/fever Last Admin: 07/21/19 09:19 Dose: 325 mg Acetaminophen (Tylenol) Confirm Administered Dose 325 mg .ROUTE .STK-MED ONE Stop: 07/21/19 01:40 Last Admin: 07/21/19 04:04 Dose: Not Given Acetaminophen (Tylenol) Confirm Administered Dose 325 mg .ROUTE .STK-MED ONE Stop: 07/21/19 05:17 Last Admin: 07/21/19 05:18 Dose: Not Given Hydrocodone Bitart/Acetaminophen ([place] 325-5 Mg) 1 tab PO Q4H PRN PRN Reason: Pain (moderate 4-6) Last Admin: 07/27/19 07:03 Dose: 1 tab Apixaban (Eliquis) 5 mg PO BID [facility] Last Admin: 08/04/19 10:43 Dose: Not Given Gabapentin (Neurontin) 400 mg PO Q8H [facility] Stop: 07/23/19 09:47 Last Admin: 07/21/19 09:20 Dose: 400 mg Haloperidol Lactate (Haldol) 5 mg IM ONETIME ONE Stop: 07/19/19 17:21 Last Admin: 07/19/19 17:25 Dose: 5 mg Haloperidol Lactate (Haldol) 2 mg IVPUSH Q2H PRN PRN Reason: Agitation Last Admin: 07/19/19 21:00 Dose: 2 mg Multivitamins/Minerals 10 ml/Thiamine HCl 100 mg/ Folic Acid 1 mg/ Magnesium Sulfate 3 gm/ Sodium Chloride 1,017.2 mls @ 500 mls/hr IV ASDIRECTED ONE Stop: 07/19/19 17:47 Last Admin: 07/19/19 15:59 Dose: 500 mls/hr Sodium Chloride (Normal Saline) 1,000 mls @ 100 mls/hr IV ASDIRECTED [facility] Last Admin: 07/20/19 04:20 Dose: 100 mls/hr Lorazepam (Ativan) 0 mg IV ASDIRECTED [facility]; Protocol Lorazepam (Ativan) 0 mg PO ASDIRECTED [facility]; Protocol Lorazepam (Ativan) 0.5 mg PO ONETIME ONE Stop: 07/29/19 11:34 Last Admin: 07/29/19 11:41 Dose: 0.5 mg Metoprolol Succinate (Toprol Xl) 25 mg PO DAILY [facility] Stop: 07/20/19 09:15 Last Admin: 07/20/19 08:22 Dose: 25 mg Phenobarbital (Phenobarbital) 200 mg PO NOW STA Stop: 07/19/19 15:34 Last Admin: 07/19/19 16:01 Dose: Not Given Phenobarbital (Phenobarbital) 300 mg PO NOW STA Stop: 07/19/19 15:35 Last Admin: 07/19/19 15:51 Dose: 300 mg Phenobarbital (Phenobarbital) 97.2 mg PO ONETIME ONE Stop: 08/10/19 11:46 Last Admin: 08/10/19 11:41 Dose: 97.2 mg Sodium Chloride (Saline Flush) 10 ml FLUSH ASDIRECTED PRN PRN Reason: Keep Vein Open Last Admin: 07/19/19 16:01 Dose: 10 ml - Exam General: Alert, Oriented, Cooperative, No Acute Distress Lungs: Clear to Auscultation, Normal Respiratory Effort Cardiovascular: Regular Rate, Regular Rhythm, No Murmurs GI/Abdominal Exam: Soft, Non-Tender, No Organomegaly, No Distention Extremities: Non-Tender, No Pedal Edema Sepsis Event Note - Evaluation Sepsis Screening Result: No Definite Risk - Focused Exam Vital Signs: Vital Signs Temp Pulse Pulse Resp BP BP Pulse Ox 08/10/19 08:34 140/61 08/10/19 08:33 64 140/61 08/10/19 07:29 95.3 F L 64 16 140/61 96 Date Exam was Performed: 08/10/19 Time Exam was Performed: 12:57 - Problem List Review Problem List Initiated/Reviewed/Updated: Yes - Plan Plan:: ASSESSMENT AND PLAN ALCOHOL ABUSE AND DEPENDENCE-stable. Commitment process has been initiated and preliminary hearing was completed 07/24. No behavior issues. Final court date is tomorrow. -court hold is in place and active -second hearing on 08/11 -Saline lock IV RECURRENT FALLS-no issues during the hospital stay. He has been independent. 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 Currently off medications per patient request. CHRONIC BACK PAIN-history of compression fractures. Long-term issues with pain which is currently stable. I suspect that he will be weaned off of his pain medications after hospital discharge. He will need to establish care and consider pain clinic referral after hospital discharge. SEIZURES-No seizures during the hospital stay. -Continue outpatient meds MAINTENANCE ISSUES -DVT prophylaxis; ambulatory -GI prophylaxis; PPI -Chavarria catheter; not indicated -Nutrition; 2 g sodium diet DISPOSITION-pending court proceeding for commitment
[2019-08-10] MEDS: traZODone 50 MG Tab PO SCH (20:43)
[2019-08-10] MEDS: Melatonin 3 MG Tab PO SCH (20:43)
[2019-08-11] MEDS: Acetaminophen/HYDROcodone 325-10 MG Tab PO PRN ×6 (00:30→20:52)
[2019-08-11] MEDS: Acetaminophen 325 MG Tab PO PRN ×6 (00:30→20:52)
[2019-08-11] MEDS: PHENobarbital 32.4 MG Tab PO SCH ×2 (08:01→20:46)
[2019-08-11] MEDS: Docusate Sodium 100 MG Cap PO SCH (08:02)
[2019-08-11] MEDS: Citalopram 10 MG Tab PO SCH (08:02)
[2019-08-11] MEDS: Metoprolol Succinate 25 MG Tab.ER PO SCH (08:03)
[2019-08-11] MEDS: Losartan 25 MG Tab PO SCH (08:06)
[2019-08-11] MEDS: Tamsulosin 0.4 MG Cap.ER PO SCH (08:07)
[2019-08-11] MEDS: Thiamine 100 MG Tab PO SCH (08:07)
[2019-08-11] MEDS: Folic Acid 1 MG Tab PO SCH (08:07)
[2019-08-11] MEDS: Phenytoin 100 MG Cap.ER PO SCH ×2 (08:07→20:46)
--- NOTE | 2019-08-11 10:30 | PCM.PN ---
- General Info Date of Service: 08/11/19 Subjective Update: Mr. Degroot has been stable since yesterday, denies new complaints. Court hearing concerning commitment pending this afternoon. Functional Status: Reports: Tolerating Diet, Ambulating, Urinating - Review of Systems General: Reports: No Symptoms Pulmonary: Reports: No Symptoms Cardiovascular: Reports: No Symptoms Gastrointestinal: Reports: No Symptoms - Patient Data Vitals - Most Recent: Last Vital Signs Temp 96.7 F L 08/10/19 20:07 Pulse 67 08/11/19 08:03 Resp 16 08/10/19 20:07 BP 108/44 L 08/11/19 08:06 Pulse Ox 97 08/10/19 20:07 Weight - Most Recent: 109 lb 12.643 oz I&O - Last 24 Hours: Intake & Output 08/10/19 08/11/19 08/11/19 22:59 06:59 14:59 Intake Total 360 690 Balance 360 690 Med Orders - Current: Current Medications Acetaminophen (Tylenol) 325 mg PO Q4H PRN PRN Reason: Pain (Mild 1-3)/fever Last Admin: 08/11/19 08:30 Dose: 325 mg Hydrocodone Bitart/Acetaminophen ([place] 325-10 Mg) 1 tab PO Q4H PRN PRN Reason: Pain (moderate 4-6) Last Admin: 08/11/19 08:30 Dose: 1 tab Albuterol (Proventil Neb Soln) 2.5 mg NEB Q4H PRN PRN Reason: Shortness Of Breath/wheezing Citalopram Hydrobromide (Celexa) 30 mg PO DAILY [facility] Last Admin: 08/11/19 08:02 Dose: 30 mg Docusate Sodium (Colace) 100 mg PO DAILY [facility] Last Admin: 08/11/19 08:02 Dose: 100 mg Folic Acid (Folic Acid) 1 mg PO DAILY [facility] Last Admin: 08/11/19 08:07 Dose: 1 mg Losartan Potassium (Cozaar) 25 mg PO DAILY [facility] Last Admin: 08/11/19 08:06 Dose: 25 mg Melatonin (Melatonin) 9 mg PO BEDTIME [facility] Last Admin: 08/10/19 20:43 Dose: 9 mg Metoprolol Succinate (Toprol Xl) 25 mg PO DAILY [facility] Last Admin: 08/11/19 08:03 Dose: 25 mg Ondansetron HCl (Zofran) 4 mg IV Q4H PRN PRN Reason: Nausea/Vomiting Phenobarbital (Phenobarbital) 97.2 mg PO BID [facility] Last Admin: 08/11/19 08:01 Dose: 97.2 mg Phenytoin Sodium (Phenytoin) 200 mg PO BID [facility] Last Admin: 08/11/19 08:07 Dose: 200 mg Polyethylene Glycol (Miralax) 17 gm PO DAILY PRN PRN Reason: Constipation Sodium Chloride (Saline Flush) 10 ml FLUSH ASDIRECTED PRN PRN Reason: Keep Vein Open Tamsulosin HCl (Flomax) 0.4 mg PO DAILY [facility] Last Admin: 08/11/19 08:07 Dose: 0.4 mg Thiamine HCl (Vitamin B-1) 100 mg PO DAILY [facility] Last Admin: 08/11/19 08:07 Dose: 100 mg Trazodone HCl (Trazodone) 150 mg PO BEDTIME [facility] Last Admin: 08/10/19 20:43 Dose: 150 mg Discontinued Medications Acetaminophen (Tylenol) 650 mg PO Q4H PRN PRN Reason: Pain (Mild 1-3)/fever Last Admin: 07/21/19 09:19 Dose: 325 mg Acetaminophen (Tylenol) Confirm Administered Dose 325 mg .ROUTE .STK-MED ONE Stop: 07/21/19 01:40 Last Admin: 07/21/19 04:04 Dose: Not Given Acetaminophen (Tylenol) Confirm Administered Dose 325 mg .ROUTE .STK-MED ONE Stop: 07/21/19 05:17 Last Admin: 07/21/19 05:18 Dose: Not Given Hydrocodone Bitart/Acetaminophen ([place] 325-5 Mg) 1 tab PO Q4H PRN PRN Reason: Pain (moderate 4-6) Last Admin: 07/27/19 07:03 Dose: 1 tab Apixaban (Eliquis) 5 mg PO BID [facility] Last Admin: 08/04/19 10:43 Dose: Not Given Gabapentin (Neurontin) 400 mg PO Q8H [facility] Stop: 07/23/19 09:47 Last Admin: 07/21/19 09:20 Dose: 400 mg Haloperidol Lactate (Haldol) 5 mg IM ONETIME ONE Stop: 07/19/19 17:21 Last Admin: 07/19/19 17:25 Dose: 5 mg Haloperidol Lactate (Haldol) 2 mg IVPUSH Q2H PRN PRN Reason: Agitation Last Admin: 07/19/19 21:00 Dose: 2 mg Multivitamins/Minerals 10 ml/Thiamine HCl 100 mg/ Folic Acid 1 mg/ Magnesium Sulfate 3 gm/ Sodium Chloride 1,017.2 mls @ 500 mls/hr IV ASDIRECTED ONE Stop: 07/19/19 17:47 Last Admin: 07/19/19 15:59 Dose: 500 mls/hr Sodium Chloride (Normal Saline) 1,000 mls @ 100 mls/hr IV ASDIRECTED [facility] Last Admin: 07/20/19 04:20 Dose: 100 mls/hr Lorazepam (Ativan) 0 mg IV ASDIRECTED [facility]; Protocol Lorazepam (Ativan) 0 mg PO ASDIRECTED [facility]; Protocol Lorazepam (Ativan) 0.5 mg PO ONETIME ONE Stop: 07/29/19 11:34 Last Admin: 07/29/19 11:41 Dose: 0.5 mg Metoprolol Succinate (Toprol Xl) 25 mg PO DAILY [facility] Stop: 07/20/19 09:15 Last Admin: 07/20/19 08:22 Dose: 25 mg Phenobarbital (Phenobarbital) 200 mg PO NOW STA Stop: 07/19/19 15:34 Last Admin: 07/19/19 16:01 Dose: Not Given Phenobarbital (Phenobarbital) 300 mg PO NOW STA Stop: 07/19/19 15:35 Last Admin: 07/19/19 15:51 Dose: 300 mg Phenobarbital (Phenobarbital) 97.2 mg PO ONETIME ONE Stop: 08/10/19 11:46 Last Admin: 08/10/19 11:41 Dose: 97.2 mg Sodium Chloride (Saline Flush) 10 ml FLUSH ASDIRECTED PRN PRN Reason: Keep Vein Open Last Admin: 07/19/19 16:01 Dose: 10 ml - Exam General: Alert, Oriented, Cooperative, No Acute Distress Lungs: Clear to Auscultation, Normal Respiratory Effort, Decreased Breath Sounds Cardiovascular: Regular Rate, Regular Rhythm, No Murmurs GI/Abdominal Exam: Soft, Non-Tender, No Organomegaly, No Distention Extremities: Non-Tender, No Pedal Edema Sepsis Event Note - Evaluation Sepsis Screening Result: No Definite Risk - Focused Exam Vital Signs: Vital Signs Pulse BP 08/11/19 08:06 108/44 L 08/11/19 08:03 67 108/44 L Date Exam was Performed: 08/11/19 Time Exam was Performed: 10:28 - Problem List Review Problem List Initiated/Reviewed/Updated: Yes - Plan Plan:: ASSESSMENT AND PLAN ALCOHOL ABUSE AND DEPENDENCE-stable. Commitment process has been initiated and preliminary hearing was completed 07/24. No behavior issues. Final court date is today. -court hold is in place and active -second hearing today -Saline lock IV RECURRENT FALLS-no issues during the hospital stay. He has been independent. 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 Currently off medications per patient request. CHRONIC BACK PAIN-history of compression fractures. Long-term issues with pain which is currently stable. I suspect that he will be weaned off of his pain medications after hospital discharge. He will need to establish care and consider pain clinic referral after hospital discharge. SEIZURES-No seizures during the hospital stay. -Continue outpatient meds MAINTENANCE ISSUES -DVT prophylaxis; ambulatory -GI prophylaxis; PPI -Chavarria catheter; not indicated -Nutrition; 2 g sodium diet DISPOSITION-pending court proceeding for commitment
[2019-08-11] MEDS: traZODone 50 MG Tab PO SCH (20:46)
[2019-08-11] MEDS: Melatonin 3 MG Tab PO SCH (20:47)
[2019-08-12] MEDS: Acetaminophen/HYDROcodone 325-10 MG Tab PO PRN ×2 (02:33→06:43)
[2019-08-12] MEDS: Acetaminophen 325 MG Tab PO PRN ×6 (02:33→23:23)
[2019-08-12] MEDS: Losartan 25 MG Tab PO SCH (08:22)
[2019-08-12] MEDS: Citalopram 10 MG Tab PO SCH (08:22)
[2019-08-12] MEDS: Docusate Sodium 100 MG Cap PO SCH (08:22)
[2019-08-12] MEDS: PHENobarbital 32.4 MG Tab PO SCH ×2 (08:23→20:09)
[2019-08-12] MEDS: Folic Acid 1 MG Tab PO SCH (08:23)
[2019-08-12] MEDS: Phenytoin 100 MG Cap.ER PO SCH ×2 (08:23→20:10)
[2019-08-12] MEDS: Tamsulosin 0.4 MG Cap.ER PO SCH (08:23)
[2019-08-12] MEDS: Thiamine 100 MG Tab PO SCH (08:24)
[2019-08-12] MEDS: Metoprolol Succinate 25 MG Tab.ER PO SCH (08:24)
--- NOTE | 2019-08-12 09:17 | PCM.PN ---
- General Info Date of Service: 08/12/19 Subjective Update: Mr. Degroot went for his commitment hearing yesterday afternoon and has now been committed to state custody. He obviously is unhappy about this decision, but resigned to it. Currently in the process of finding a facility to accept him for ongoing management during his commitment. Functional Status: Reports: Tolerating Diet, Ambulating, Urinating - Review of Systems General: Reports: No Symptoms Pulmonary: Reports: No Symptoms Cardiovascular: Reports: No Symptoms Gastrointestinal: Reports: No Symptoms - Patient Data Vitals - Most Recent: Last Vital Signs Temp 98 F 08/11/19 20:45 Pulse 62 08/12/19 08:24 Resp 14 08/11/19 20:45 BP 124/40 L 08/12/19 08:24 Pulse Ox 95 08/11/19 20:45 Weight - Most Recent: 109 lb 12.643 oz Med Orders - Current: Current Medications Acetaminophen (Tylenol) 325 mg PO Q4H PRN PRN Reason: Pain (Mild 1-3)/fever Last Admin: 08/12/19 06:43 Dose: 325 mg Hydrocodone Bitart/Acetaminophen ([place] 325-5 Mg) 1 tab PO Q4H PRN PRN Reason: Pain Albuterol (Proventil Neb Soln) 2.5 mg NEB Q4H PRN PRN Reason: Shortness Of Breath/wheezing Citalopram Hydrobromide (Celexa) 30 mg PO DAILY [facility] Last Admin: 08/12/19 08:22 Dose: 30 mg Docusate Sodium (Colace) 100 mg PO DAILY [facility] Last Admin: 08/12/19 08:22 Dose: 100 mg Folic Acid (Folic Acid) 1 mg PO DAILY [facility] Last Admin: 08/12/19 08:23 Dose: 1 mg Losartan Potassium (Cozaar) 25 mg PO DAILY [facility] Last Admin: 08/12/19 08:22 Dose: 25 mg Melatonin (Melatonin) 9 mg PO BEDTIME [facility] Last Admin: 08/11/19 20:47 Dose: 9 mg Metoprolol Succinate (Toprol Xl) 25 mg PO DAILY [facility] Last Admin: 08/12/19 08:24 Dose: 25 mg Ondansetron HCl (Zofran) 4 mg IV Q4H PRN PRN Reason: Nausea/Vomiting Phenobarbital (Phenobarbital) 97.2 mg PO BID [facility] Last Admin: 08/12/19 08:23 Dose: 97.2 mg Phenytoin Sodium (Phenytoin) 200 mg PO BID [facility] Last Admin: 08/12/19 08:23 Dose: 200 mg Polyethylene Glycol (Miralax) 17 gm PO DAILY PRN PRN Reason: Constipation Sodium Chloride (Saline Flush) 10 ml FLUSH ASDIRECTED PRN PRN Reason: Keep Vein Open Tamsulosin HCl (Flomax) 0.4 mg PO DAILY [facility] Last Admin: 08/12/19 08:23 Dose: 0.4 mg Thiamine HCl (Vitamin B-1) 100 mg PO DAILY [facility] Last Admin: 08/12/19 08:24 Dose: 100 mg Trazodone HCl (Trazodone) 150 mg PO BEDTIME [facility] Last Admin: 08/11/19 20:46 Dose: 150 mg Discontinued Medications Acetaminophen (Tylenol) 650 mg PO Q4H PRN PRN Reason: Pain (Mild 1-3)/fever Last Admin: 07/21/19 09:19 Dose: 325 mg Acetaminophen (Tylenol) Confirm Administered Dose 325 mg .ROUTE .STK-MED ONE Stop: 07/21/19 01:40 Last Admin: 07/21/19 04:04 Dose: Not Given Acetaminophen (Tylenol) Confirm Administered Dose 325 mg .ROUTE .STK-MED ONE Stop: 07/21/19 05:17 Last Admin: 07/21/19 05:18 Dose: Not Given Hydrocodone Bitart/Acetaminophen ([place] 325-5 Mg) 1 tab PO Q4H PRN PRN Reason: Pain (moderate 4-6) Last Admin: 07/27/19 07:03 Dose: 1 tab Hydrocodone Bitart/Acetaminophen ([place] 325-10 Mg) 1 tab PO Q4H PRN PRN Reason: Pain (moderate 4-6) Last Admin: 08/12/19 06:43 Dose: 1 tab Apixaban (Eliquis) 5 mg PO BID [facility] Last Admin: 08/04/19 10:43 Dose: Not Given Gabapentin (Neurontin) 400 mg PO Q8H [facility] Stop: 07/23/19 09:47 Last Admin: 07/21/19 09:20 Dose: 400 mg Haloperidol Lactate (Haldol) 5 mg IM ONETIME ONE Stop: 07/19/19 17:21 Last Admin: 07/19/19 17:25 Dose: 5 mg Haloperidol Lactate (Haldol) 2 mg IVPUSH Q2H PRN PRN Reason: Agitation Last Admin: 07/19/19 21:00 Dose: 2 mg Multivitamins/Minerals 10 ml/Thiamine HCl 100 mg/ Folic Acid 1 mg/ Magnesium Sulfate 3 gm/ Sodium Chloride 1,017.2 mls @ 500 mls/hr IV ASDIRECTED ONE Stop: 07/19/19 17:47 Last Admin: 07/19/19 15:59 Dose: 500 mls/hr Sodium Chloride (Normal Saline) 1,000 mls @ 100 mls/hr IV ASDIRECTED [facility] Last Admin: 07/20/19 04:20 Dose: 100 mls/hr Lorazepam (Ativan) 0 mg IV ASDIRECTED [facility]; Protocol Lorazepam (Ativan) 0 mg PO ASDIRECTED [facility]; Protocol Lorazepam (Ativan) 0.5 mg PO ONETIME ONE Stop: 07/29/19 11:34 Last Admin: 07/29/19 11:41 Dose: 0.5 mg Metoprolol Succinate (Toprol Xl) 25 mg PO DAILY [facility] Stop: 07/20/19 09:15 Last Admin: 07/20/19 08:22 Dose: 25 mg Phenobarbital (Phenobarbital) 200 mg PO NOW STA Stop: 07/19/19 15:34 Last Admin: 07/19/19 16:01 Dose: Not Given Phenobarbital (Phenobarbital) 300 mg PO NOW STA Stop: 07/19/19 15:35 Last Admin: 07/19/19 15:51 Dose: 300 mg Phenobarbital (Phenobarbital) 97.2 mg PO ONETIME ONE Stop: 08/10/19 11:46 Last Admin: 08/10/19 11:41 Dose: 97.2 mg Sodium Chloride (Saline Flush) 10 ml FLUSH ASDIRECTED PRN PRN Reason: Keep Vein Open Last Admin: 07/19/19 16:01 Dose: 10 ml - Exam General: Alert, Oriented, Cooperative, No Acute Distress Lungs: Clear to Auscultation, Normal Respiratory Effort Cardiovascular: Regular Rate, Regular Rhythm, No Murmurs GI/Abdominal Exam: Soft, Non-Tender, No Organomegaly, No Distention Sepsis Event Note - Evaluation Sepsis Screening Result: No Definite Risk - Focused Exam Vital Signs: Vital Signs Pulse BP 08/12/19 08:24 62 124/40 L 08/12/19 08:22 124/40 L Date Exam was Performed: 08/12/19 Time Exam was Performed: 09:13 - Problem List Review Problem List Initiated/Reviewed/Updated: Yes - My Orders Last 24 Hours: My Active Orders 08/12/19 08:19 Acetaminophen/HYDROcodone [[place] 325-5 MG] 1 tab PO Q4H PRN - Plan Plan:: ASSESSMENT AND PLAN ALCOHOL ABUSE AND DEPENDENCE-stable. When tearing yesterday, he is now committed to state custody -Position pending -Saline lock IV RECURRENT FALLS-no issues during the hospital stay. He has been independent. 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 Currently off medications per patient request. CHRONIC BACK PAIN-history of compression fractures. Long-term issues with pain which is currently stable. I suspect that he will be weaned off of his pain medications after hospital discharge. He will need to establish care and consider pain clinic referral after hospital discharge. SEIZURES-No seizures during the hospital stay. -Continue outpatient meds MAINTENANCE ISSUES -DVT prophylaxis; ambulatory -GI prophylaxis; PPI -Cahvarria catheter; not indicated -Nutrition; 2 g sodium diet DISPOSITION-now under commitment, disposition pending
[2019-08-12] MEDS: Acetaminophen/HYDROcodone 325-5 MG Tab PO PRN ×4 (10:36→23:23)
[2019-08-12] MEDS: Melatonin 3 MG Tab PO SCH (20:10)
[2019-08-12] MEDS: traZODone 50 MG Tab PO SCH (20:10)
[2019-08-13] MEDS: Acetaminophen 325 MG Tab PO PRN (04:13)
[2019-08-13] MEDS: Acetaminophen/HYDROcodone 325-5 MG Tab PO PRN ×5 (04:13→20:35)
--- NOTE | 2019-08-13 09:42 | PCM.PN ---
- General Info Date of Service: 08/13/19 Subjective Update: Mr. Degroot has remained stable since yesterday, currently awaiting placement for his commitment. Functional Status: Reports: Tolerating Diet, Ambulating, Urinating - Review of Systems Pulmonary: Reports: No Symptoms Cardiovascular: Reports: No Symptoms Gastrointestinal: Reports: No Symptoms - Patient Data Vitals - Most Recent: Last Vital Signs Temp 98.6 F 08/13/19 07:36 Pulse 68 08/13/19 07:36 Resp 16 08/13/19 07:36 BP 124/64 08/13/19 07:36 Pulse Ox 95 08/13/19 07:36 Weight - Most Recent: 109 lb 12.643 oz I&O - Last 24 Hours: Intake & Output 08/12/19 08/13/19 08/13/19 22:59 06:59 14:59 Intake Total 400 Balance 400 Med Orders - Current: Current Medications Acetaminophen (Tylenol) 325 mg PO Q4H PRN PRN Reason: Pain (Mild 1-3)/fever Last Admin: 08/13/19 04:13 Dose: 325 mg Hydrocodone Bitart/Acetaminophen ([place] 325-5 Mg) 1 tab PO Q4H PRN PRN Reason: Pain Last Admin: 08/13/19 08:09 Dose: 1 tab Albuterol (Proventil Neb Soln) 2.5 mg NEB Q4H PRN PRN Reason: Shortness Of Breath/wheezing Citalopram Hydrobromide (Celexa) 30 mg PO DAILY [facility] Last Admin: 08/12/19 08:22 Dose: 30 mg Docusate Sodium (Colace) 100 mg PO DAILY [facility] Last Admin: 08/12/19 08:22 Dose: 100 mg Folic Acid (Folic Acid) 1 mg PO DAILY [facility] Last Admin: 08/12/19 08:23 Dose: 1 mg Losartan Potassium (Cozaar) 25 mg PO DAILY [facility] Last Admin: 08/12/19 08:22 Dose: 25 mg Melatonin (Melatonin) 9 mg PO BEDTIME [facility] Last Admin: 08/12/19 20:10 Dose: 9 mg Metoprolol Succinate (Toprol Xl) 25 mg PO DAILY [facility] Last Admin: 08/12/19 08:24 Dose: 25 mg Ondansetron HCl (Zofran) 4 mg IV Q4H PRN PRN Reason: Nausea/Vomiting Phenobarbital (Phenobarbital) 97.2 mg PO BID [facility] Last Admin: 08/12/19 20:09 Dose: 97.2 mg Phenytoin Sodium (Phenytoin) 200 mg PO BID [facility] Last Admin: 08/12/19 20:10 Dose: 200 mg Polyethylene Glycol (Miralax) 17 gm PO DAILY PRN PRN Reason: Constipation Sodium Chloride (Saline Flush) 10 ml FLUSH ASDIRECTED PRN PRN Reason: Keep Vein Open Tamsulosin HCl (Flomax) 0.4 mg PO DAILY [facility] Last Admin: 08/12/19 08:23 Dose: 0.4 mg Thiamine HCl (Vitamin B-1) 100 mg PO DAILY [facility] Last Admin: 08/12/19 08:24 Dose: 100 mg Trazodone HCl (Trazodone) 150 mg PO BEDTIME [facility] Last Admin: 08/12/19 20:10 Dose: 150 mg Discontinued Medications Acetaminophen (Tylenol) 650 mg PO Q4H PRN PRN Reason: Pain (Mild 1-3)/fever Last Admin: 07/21/19 09:19 Dose: 325 mg Acetaminophen (Tylenol) Confirm Administered Dose 325 mg .ROUTE .STK-MED ONE Stop: 07/21/19 01:40 Last Admin: 07/21/19 04:04 Dose: Not Given Acetaminophen (Tylenol) Confirm Administered Dose 325 mg .ROUTE .STK-MED ONE Stop: 07/21/19 05:17 Last Admin: 07/21/19 05:18 Dose: Not Given Hydrocodone Bitart/Acetaminophen ([place] 325-5 Mg) 1 tab PO Q4H PRN PRN Reason: Pain (moderate 4-6) Last Admin: 07/27/19 07:03 Dose: 1 tab Hydrocodone Bitart/Acetaminophen ([place] 325-10 Mg) 1 tab PO Q4H PRN PRN Reason: Pain (moderate 4-6) Last Admin: 08/12/19 06:43 Dose: 1 tab Apixaban (Eliquis) 5 mg PO BID [facility] Last Admin: 08/04/19 10:43 Dose: Not Given Gabapentin (Neurontin) 400 mg PO Q8H [facility] Stop: 07/23/19 09:47 Last Admin: 07/21/19 09:20 Dose: 400 mg Haloperidol Lactate (Haldol) 5 mg IM ONETIME ONE Stop: 07/19/19 17:21 Last Admin: 07/19/19 17:25 Dose: 5 mg Haloperidol Lactate (Haldol) 2 mg IVPUSH Q2H PRN PRN Reason: Agitation Last Admin: 07/19/19 21:00 Dose: 2 mg Multivitamins/Minerals 10 ml/Thiamine HCl 100 mg/ Folic Acid 1 mg/ Magnesium Sulfate 3 gm/ Sodium Chloride 1,017.2 mls @ 500 mls/hr IV ASDIRECTED ONE Stop: 07/19/19 17:47 Last Admin: 07/19/19 15:59 Dose: 500 mls/hr Sodium Chloride (Normal Saline) 1,000 mls @ 100 mls/hr IV ASDIRECTED [facility] Last Admin: 07/20/19 04:20 Dose: 100 mls/hr Lorazepam (Ativan) 0 mg IV ASDIRECTED BRITTANY; Protocol Lorazepam (Ativan) 0 mg PO ASDIRECTED BRITTANY; Protocol Lorazepam (Ativan) 0.5 mg PO ONETIME ONE Stop: 07/29/19 11:34 Last Admin: 07/29/19 11:41 Dose: 0.5 mg Metoprolol Succinate (Toprol Xl) 25 mg PO DAILY [facility] Stop: 07/20/19 09:15 Last Admin: 07/20/19 08:22 Dose: 25 mg Phenobarbital (Phenobarbital) 200 mg PO NOW STA Stop: 07/19/19 15:34 Last Admin: 07/19/19 16:01 Dose: Not Given Phenobarbital (Phenobarbital) 300 mg PO NOW STA Stop: 07/19/19 15:35 Last Admin: 07/19/19 15:51 Dose: 300 mg Phenobarbital (Phenobarbital) 97.2 mg PO ONETIME ONE Stop: 08/10/19 11:46 Last Admin: 08/10/19 11:41 Dose: 97.2 mg Sodium Chloride (Saline Flush) 10 ml FLUSH ASDIRECTED PRN PRN Reason: Keep Vein Open Last Admin: 07/19/19 16:01 Dose: 10 ml - Exam General: Alert, Oriented, Cooperative, No Acute Distress Lungs: Clear to Auscultation, Normal Respiratory Effort Cardiovascular: Regular Rate, Regular Rhythm, No Murmurs GI/Abdominal Exam: Soft, Non-Tender, No Organomegaly, No Distention Sepsis Event Note - Evaluation Sepsis Screening Result: No Definite Risk - Focused Exam Vital Signs: Vital Signs Temp Pulse Resp BP Pulse Ox 08/13/19 07:36 98.6 F 68 16 124/64 95 Date Exam was Performed: 08/13/19 Time Exam was Performed: 09:35 - Problem List Review Problem List Initiated/Reviewed/Updated: Yes - Plan Plan:: ASSESSMENT AND PLAN ALCOHOL ABUSE AND DEPENDENCE-stable. He has been committed by the state, awaiting placement. -Disposition pending -Saline lock IV RECURRENT FALLS-no issues during the hospital stay. He has been independent. 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 Currently off medications per patient request. CHRONIC BACK PAIN-history of compression fractures. Long-term issues with pain which is currently stable. I suspect that he will be weaned off of his pain medications after hospital discharge. He will need to establish care and consider pain clinic referral after hospital discharge. SEIZURES-No seizures during the hospital stay. -Continue outpatient meds MAINTENANCE ISSUES -DVT prophylaxis; ambulatory -GI prophylaxis; PPI -Chavarria catheter; not indicated -Nutrition; 2 g sodium diet DISPOSITION-now under commitment, disposition pending
[2019-08-13] MEDS: Tamsulosin 0.4 MG Cap.ER PO SCH (09:44)
[2019-08-13] MEDS: Phenytoin 100 MG Cap.ER PO SCH ×2 (09:44→21:11)
[2019-08-13] MEDS: Losartan 25 MG Tab PO SCH (09:45)
[2019-08-13] MEDS: Docusate Sodium 100 MG Cap PO SCH (09:45)
[2019-08-13] MEDS: Metoprolol Succinate 25 MG Tab.ER PO SCH (09:45)
[2019-08-13] MEDS: Citalopram 10 MG Tab PO SCH (09:46)
[2019-08-13] MEDS: Thiamine 100 MG Tab PO SCH (09:47)
[2019-08-13] MEDS: Folic Acid 1 MG Tab PO SCH (09:48)
[2019-08-13] MEDS: PHENobarbital 32.4 MG Tab PO SCH ×2 (09:51→21:11)
[2019-08-13] MEDS: traZODone 50 MG Tab PO SCH (21:11)
[2019-08-13] MEDS: Melatonin 3 MG Tab PO SCH (21:11)
[2019-08-14] MEDS: Acetaminophen/HYDROcodone 325-5 MG Tab PO PRN ×4 (00:47→20:32)
[2019-08-14] MEDS: Acetaminophen 325 MG Tab PO PRN ×2 (00:47→04:51)
[2019-08-14] MEDS: Docusate Sodium 100 MG Cap PO SCH (08:50)
[2019-08-14] MEDS: Phenytoin 100 MG Cap.ER PO SCH ×2 (08:50→21:07)
[2019-08-14] MEDS: Tamsulosin 0.4 MG Cap.ER PO SCH (08:50)
[2019-08-14] MEDS: Folic Acid 1 MG Tab PO SCH (08:50)
[2019-08-14] MEDS: Citalopram 10 MG Tab PO SCH (08:50)
[2019-08-14] MEDS: Losartan 25 MG Tab PO SCH (08:50)
[2019-08-14] MEDS: Metoprolol Succinate 25 MG Tab.ER PO SCH (08:51)
[2019-08-14] MEDS: Thiamine 100 MG Tab PO SCH (08:51)
[2019-08-14] MEDS: PHENobarbital 32.4 MG Tab PO SCH ×2 (08:56→21:07)
--- NOTE | 2019-08-14 09:18 | PCM.PN ---
- General Info Date of Service: 08/14/19 Subjective Update: Mr. Degroot has been stable since yesterday, still awaiting placement on his commitment. No medical issues or concerns at this time. - Review of Systems General: Reports: No Symptoms Pulmonary: Reports: No Symptoms Cardiovascular: Reports: No Symptoms Gastrointestinal: Reports: No Symptoms - Patient Data Vitals - Most Recent: Last Vital Signs Temp 96.8 F L 08/14/19 08:57 Pulse 63 08/14/19 08:57 Resp 16 08/14/19 08:57 BP 126/45 L 08/14/19 08:57 Pulse Ox 98 08/14/19 08:57 Weight - Most Recent: 109 lb 12.643 oz Med Orders - Current: Current Medications Acetaminophen (Tylenol) 325 mg PO Q4H PRN PRN Reason: Pain (Mild 1-3)/fever Last Admin: 08/14/19 04:51 Dose: 325 mg Hydrocodone Bitart/Acetaminophen ([place] 325-5 Mg) 1 tab PO Q4H PRN PRN Reason: Pain Last Admin: 08/14/19 08:50 Dose: 1 tab Albuterol (Proventil Neb Soln) 2.5 mg NEB Q4H PRN PRN Reason: Shortness Of Breath/wheezing Citalopram Hydrobromide (Celexa) 30 mg PO DAILY [facility] Last Admin: 08/14/19 08:50 Dose: 30 mg Docusate Sodium (Colace) 100 mg PO DAILY [facility] Last Admin: 08/14/19 08:50 Dose: 100 mg Folic Acid (Folic Acid) 1 mg PO DAILY [facility] Last Admin: 08/14/19 08:50 Dose: 1 mg Losartan Potassium (Cozaar) 25 mg PO DAILY [facility] Last Admin: 08/14/19 08:50 Dose: 25 mg Melatonin (Melatonin) 9 mg PO BEDTIME [facility] Last Admin: 08/13/19 21:11 Dose: 9 mg Metoprolol Succinate (Toprol Xl) 25 mg PO DAILY [facility] Last Admin: 08/14/19 08:51 Dose: 25 mg Ondansetron HCl (Zofran) 4 mg IV Q4H PRN PRN Reason: Nausea/Vomiting Phenobarbital (Phenobarbital) 97.2 mg PO BID [facility] Last Admin: 08/14/19 08:56 Dose: 97.2 mg Phenytoin Sodium (Phenytoin) 200 mg PO BID [facility] Last Admin: 08/14/19 08:50 Dose: 200 mg Polyethylene Glycol (Miralax) 17 gm PO DAILY PRN PRN Reason: Constipation Sodium Chloride (Saline Flush) 10 ml FLUSH ASDIRECTED PRN PRN Reason: Keep Vein Open Tamsulosin HCl (Flomax) 0.4 mg PO DAILY [facility] Last Admin: 08/14/19 08:50 Dose: 0.4 mg Thiamine HCl (Vitamin B-1) 100 mg PO DAILY [facility] Last Admin: 08/14/19 08:51 Dose: 100 mg Trazodone HCl (Trazodone) 150 mg PO BEDTIME [facility] Last Admin: 08/13/19 21:11 Dose: 150 mg Discontinued Medications Acetaminophen (Tylenol) 650 mg PO Q4H PRN PRN Reason: Pain (Mild 1-3)/fever Last Admin: 07/21/19 09:19 Dose: 325 mg Acetaminophen (Tylenol) Confirm Administered Dose 325 mg .ROUTE .STK-MED ONE Stop: 07/21/19 01:40 Last Admin: 07/21/19 04:04 Dose: Not Given Acetaminophen (Tylenol) Confirm Administered Dose 325 mg .ROUTE .STK-MED ONE Stop: 07/21/19 05:17 Last Admin: 07/21/19 05:18 Dose: Not Given Hydrocodone Bitart/Acetaminophen ([place] 325-5 Mg) 1 tab PO Q4H PRN PRN Reason: Pain (moderate 4-6) Last Admin: 07/27/19 07:03 Dose: 1 tab Hydrocodone Bitart/Acetaminophen ([place] 325-10 Mg) 1 tab PO Q4H PRN PRN Reason: Pain (moderate 4-6) Last Admin: 08/12/19 06:43 Dose: 1 tab Apixaban (Eliquis) 5 mg PO BID [facility] Last Admin: 08/04/19 10:43 Dose: Not Given Gabapentin (Neurontin) 400 mg PO Q8H [facility] Stop: 07/23/19 09:47 Last Admin: 07/21/19 09:20 Dose: 400 mg Haloperidol Lactate (Haldol) 5 mg IM ONETIME ONE Stop: 07/19/19 17:21 Last Admin: 07/19/19 17:25 Dose: 5 mg Haloperidol Lactate (Haldol) 2 mg IVPUSH Q2H PRN PRN Reason: Agitation Last Admin: 07/19/19 21:00 Dose: 2 mg Multivitamins/Minerals 10 ml/Thiamine HCl 100 mg/ Folic Acid 1 mg/ Magnesium Sulfate 3 gm/ Sodium Chloride 1,017.2 mls @ 500 mls/hr IV ASDIRECTED ONE Stop: 07/19/19 17:47 Last Admin: 07/19/19 15:59 Dose: 500 mls/hr Sodium Chloride (Normal Saline) 1,000 mls @ 100 mls/hr IV ASDIRECTED [facility] Last Admin: 07/20/19 04:20 Dose: 100 mls/hr Lorazepam (Ativan) 0 mg IV ASDIRECTED [facility]ITTANY; Protocol Lorazepam (Ativan) 0 mg PO ASDIRECTED [facility]ITT[facility]; Protocol Lorazepam (Ativan) 0.5 mg PO ONETIME ONE Stop: 07/29/19 11:34 Last Admin: 07/29/19 11:41 Dose: 0.5 mg Metoprolol Succinate (Toprol Xl) 25 mg PO DAILY [facility] Stop: 07/20/19 09:15 Last Admin: 07/20/19 08:22 Dose: 25 mg Phenobarbital (Phenobarbital) 200 mg PO NOW STA Stop: 07/19/19 15:34 Last Admin: 07/19/19 16:01 Dose: Not Given Phenobarbital (Phenobarbital) 300 mg PO NOW STA Stop: 07/19/19 15:35 Last Admin: 07/19/19 15:51 Dose: 300 mg Phenobarbital (Phenobarbital) 97.2 mg PO ONETIME ONE Stop: 08/10/19 11:46 Last Admin: 08/10/19 11:41 Dose: 97.2 mg Sodium Chloride (Saline Flush) 10 ml FLUSH ASDIRECTED PRN PRN Reason: Keep Vein Open Last Admin: 07/19/19 16:01 Dose: 10 ml - Exam General: Alert, Oriented, Cooperative, No Acute Distress Lungs: Clear to Auscultation, Normal Respiratory Effort Cardiovascular: Regular Rate, Regular Rhythm GI/Abdominal Exam: Soft, Non-Tender, No Organomegaly, No Distention Extremities: Non-Tender, No Pedal Edema Sepsis Event Note - Evaluation Sepsis Screening Result: No Definite Risk - Focused Exam Vital Signs: Vital Signs Temp Pulse Pulse Resp BP BP Pulse Ox 08/14/19 08:57 96.8 F L 63 16 126/45 L 98 08/14/19 08:51 63 126/45 L 08/14/19 08:50 126/45 L Date Exam was Performed: 08/14/19 Time Exam was Performed: 09:17 - Problem List Review Problem List Initiated/Reviewed/Updated: Yes - Plan Plan:: ASSESSMENT AND PLAN ALCOHOL ABUSE AND DEPENDENCE-stable. He has been committed by the state, awaiting placement. -Disposition pending -Saline lock IV RECURRENT FALLS-no issues during the hospital stay. He has been independent. 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 Currently off medications per patient request. CHRONIC BACK PAIN-history of compression fractures. Long-term issues with pain which is currently stable. I suspect that he will be weaned off of his pain medications after hospital discharge. He will need to establish care and consider pain clinic referral after hospital discharge. SEIZURES-No seizures during the hospital stay. -Continue outpatient meds MAINTENANCE ISSUES -DVT prophylaxis; ambulatory -GI prophylaxis; PPI -Chavarria catheter; not indicated -Nutrition; 2 g sodium diet DISPOSITION-now under commitment, disposition pending
[2019-08-14] MEDS: Melatonin 3 MG Tab PO SCH (21:07)
[2019-08-14] MEDS: traZODone 50 MG Tab PO SCH (21:07)
[2019-08-15] MEDS: Acetaminophen/HYDROcodone 325-5 MG Tab PO PRN ×3 (04:10→18:05)
[2019-08-15] MEDS: Metoprolol Succinate 25 MG Tab.ER PO SCH (08:13)
[2019-08-15] MEDS: Tamsulosin 0.4 MG Cap.ER PO SCH (08:13)
[2019-08-15] MEDS: Citalopram 10 MG Tab PO SCH (08:13)
[2019-08-15] MEDS: PHENobarbital 32.4 MG Tab PO SCH ×2 (08:14→21:10)
[2019-08-15] MEDS: Thiamine 100 MG Tab PO SCH (08:14)
[2019-08-15] MEDS: Docusate Sodium 100 MG Cap PO SCH (08:14)
[2019-08-15] MEDS: Phenytoin 100 MG Cap.ER PO SCH ×2 (08:14→21:11)
[2019-08-15] MEDS: Losartan 25 MG Tab PO SCH (08:14)
[2019-08-15] MEDS: Folic Acid 1 MG Tab PO SCH (08:14)
--- NOTE | 2019-08-15 09:35 | PCM.PN ---
- General Info Date of Service: 08/15/19 Subjective Update: Mr. Degroot is remained stable over the last 24 hours. Current plan is for discharge to treatment facility on Saturday under State commitment. Functional Status: Reports: Tolerating Diet, Ambulating, Urinating - Review of Systems General: Reports: No Symptoms Pulmonary: Reports: No Symptoms Cardiovascular: Reports: No Symptoms Gastrointestinal: Reports: No Symptoms - Patient Data Vitals - Most Recent: Last Vital Signs Temp 96 F L 08/15/19 08:00 Pulse 60 08/15/19 08:13 Resp 12 08/15/19 08:00 BP 138/54 L 08/15/19 08:14 Pulse Ox 98 08/15/19 08:00 Weight - Most Recent: 109 lb 12.643 oz Med Orders - Current: Current Medications Acetaminophen (Tylenol) 325 mg PO Q4H PRN PRN Reason: Pain (Mild 1-3)/fever Last Admin: 08/14/19 04:51 Dose: 325 mg Hydrocodone Bitart/Acetaminophen ([place] 325-5 Mg) 1 tab PO Q6H PRN PRN Reason: Pain Last Admin: 08/15/19 04:10 Dose: 1 tab Albuterol (Proventil Neb Soln) 2.5 mg NEB Q4H PRN PRN Reason: Shortness Of Breath/wheezing Citalopram Hydrobromide (Celexa) 30 mg PO DAILY [facility] Last Admin: 08/15/19 08:13 Dose: 30 mg Docusate Sodium (Colace) 100 mg PO DAILY [facility] Last Admin: 08/15/19 08:14 Dose: 100 mg Folic Acid (Folic Acid) 1 mg PO DAILY [facility] Last Admin: 08/15/19 08:14 Dose: 1 mg Losartan Potassium (Cozaar) 25 mg PO DAILY [facility] Last Admin: 08/15/19 08:14 Dose: 25 mg Melatonin (Melatonin) 9 mg PO BEDTIME [facility] Last Admin: 08/14/19 21:07 Dose: 9 mg Metoprolol Succinate (Toprol Xl) 25 mg PO DAILY [facility] Last Admin: 08/15/19 08:13 Dose: 25 mg Ondansetron HCl (Zofran) 4 mg IV Q4H PRN PRN Reason: Nausea/Vomiting Phenobarbital (Phenobarbital) 97.2 mg PO BID [facility] Last Admin: 08/15/19 08:14 Dose: 97.2 mg Phenytoin Sodium (Phenytoin) 200 mg PO BID [facility] Last Admin: 08/15/19 08:14 Dose: 200 mg Polyethylene Glycol (Miralax) 17 gm PO DAILY PRN PRN Reason: Constipation Sodium Chloride (Saline Flush) 10 ml FLUSH ASDIRECTED PRN PRN Reason: Keep Vein Open Tamsulosin HCl (Flomax) 0.4 mg PO DAILY [facility] Last Admin: 08/15/19 08:13 Dose: 0.4 mg Thiamine HCl (Vitamin B-1) 100 mg PO DAILY [facility] Last Admin: 08/15/19 08:14 Dose: 100 mg Trazodone HCl (Trazodone) 150 mg PO BEDTIME [facility] Last Admin: 08/14/19 21:07 Dose: 150 mg Discontinued Medications Acetaminophen (Tylenol) 650 mg PO Q4H PRN PRN Reason: Pain (Mild 1-3)/fever Last Admin: 07/21/19 09:19 Dose: 325 mg Acetaminophen (Tylenol) Confirm Administered Dose 325 mg .ROUTE .[employer]MED ONE Stop: 07/21/19 01:40 Last Admin: 07/21/19 04:04 Dose: Not Given Acetaminophen (Tylenol) Confirm Administered Dose 325 mg .ROUTE .STK-MED ONE Stop: 07/21/19 05:17 Last Admin: 07/21/19 05:18 Dose: Not Given Hydrocodone Bitart/Acetaminophen (Prim 325-5 Mg) 1 tab PO Q4H PRN PRN Reason: Pain (moderate 4-6) Last Admin: 07/27/19 07:03 Dose: 1 tab Hydrocodone Bitart/Acetaminophen (Prim 325-10 Mg) 1 tab PO Q4H PRN PRN Reason: Pain (moderate 4-6) Last Admin: 08/12/19 06:43 Dose: 1 tab Hydrocodone Bitart/Acetaminophen (Prim 325-5 Mg) 1 tab PO Q4H PRN PRN Reason: Pain Last Admin: 08/14/19 08:50 Dose: 1 tab Apixaban (Eliquis) 5 mg PO BID [facility] Last Admin: 08/04/19 10:43 Dose: Not Given Gabapentin (Neurontin) 400 mg PO Q8H [facility] Stop: 07/23/19 09:47 Last Admin: 07/21/19 09:20 Dose: 400 mg Haloperidol Lactate (Haldol) 5 mg IM ONETIME ONE Stop: 07/19/19 17:21 Last Admin: 07/19/19 17:25 Dose: 5 mg Haloperidol Lactate (Haldol) 2 mg IVPUSH Q2H PRN PRN Reason: Agitation Last Admin: 07/19/19 21:00 Dose: 2 mg Multivitamins/Minerals 10 ml/Thiamine HCl 100 mg/ Folic Acid 1 mg/ Magnesium Sulfate 3 gm/ Sodium Chloride 1,017.2 mls @ 500 mls/hr IV ASDIRECTED ONE Stop: 07/19/19 17:47 Last Admin: 07/19/19 15:59 Dose: 500 mls/hr Sodium Chloride (Normal Saline) 1,000 mls @ 100 mls/hr IV ASDIRECTED [facility] Last Admin: 07/20/19 04:20 Dose: 100 mls/hr Lorazepam (Ativan) 0 mg IV ASDIRECTED [facility]ANY; Protocol Lorazepam (Ativan) 0 mg PO ASDIRECTED BRITTANY; Protocol Lorazepam (Ativan) 0.5 mg PO ONETIME ONE Stop: 07/29/19 11:34 Last Admin: 07/29/19 11:41 Dose: 0.5 mg Metoprolol Succinate (Toprol Xl) 25 mg PO DAILY [facility] Stop: 07/20/19 09:15 Last Admin: 07/20/19 08:22 Dose: 25 mg Phenobarbital (Phenobarbital) 200 mg PO NOW STA Stop: 07/19/19 15:34 Last Admin: 07/19/19 16:01 Dose: Not Given Phenobarbital (Phenobarbital) 300 mg PO NOW STA Stop: 07/19/19 15:35 Last Admin: 07/19/19 15:51 Dose: 300 mg Phenobarbital (Phenobarbital) 97.2 mg PO ONETIME ONE Stop: 08/10/19 11:46 Last Admin: 08/10/19 11:41 Dose: 97.2 mg Sodium Chloride (Saline Flush) 10 ml FLUSH ASDIRECTED PRN PRN Reason: Keep Vein Open Last Admin: 07/19/19 16:01 Dose: 10 ml - Exam General: Alert, Oriented, Cooperative, No Acute Distress Lungs: Clear to Auscultation, Normal Respiratory Effort, Decreased Breath Sounds Cardiovascular: Regular Rate, Regular Rhythm, No Murmurs GI/Abdominal Exam: Soft, Non-Tender, No Organomegaly, No Distention Extremities: Non-Tender, No Pedal Edema Sepsis Event Note - Evaluation Sepsis Screening Result: No Definite Risk - Focused Exam Vital Signs: Vital Signs Temp Pulse Pulse Resp BP BP Pulse Ox 08/15/19 08:14 138/54 L 08/15/19 08:13 60 138/54 L 08/15/19 08:00 96 F L 60 12 138/54 L 98 Date Exam was Performed: 08/15/19 Time Exam was Performed: 09:33 - Problem List Review Problem List Initiated/Reviewed/Updated: Yes - My Orders Last 24 Hours: My Active Orders 08/14/19 09:19 Acetaminophen/HYDROcodone [Prim 325-5 MG] 1 tab PO Q6H PRN - Plan Plan:: ASSESSMENT AND PLAN ALCOHOL ABUSE AND DEPENDENCE-stable. He has been committed by the [facility], awaiting placement. -Disposition; discharge to treatment facility on August 17 -Saline lock IV RECURRENT FALLS-no issues during the hospital stay. He has been independent. 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 Currently off medications per patient request. CHRONIC BACK PAIN-history of compression fractures. Long-term issues with pain which is currently stable. I suspect that he will be weaned off of his pain medications after hospital discharge. He will need to establish care and consider pain clinic referral after hospital discharge. SEIZURES-No seizures during the hospital stay. -Continue outpatient meds MAINTENANCE ISSUES -DVT prophylaxis; ambulatory -GI prophylaxis; PPI -Chavarria catheter; not indicated -Nutrition; 2 g sodium diet DISPOSITION-now under commitment, discharge to treatment facility on August 17
[2019-08-15] MEDS: Melatonin 3 MG Tab PO SCH (21:11)
[2019-08-15] MEDS: traZODone 50 MG Tab PO SCH (21:11)
[2019-08-16] MEDS: Acetaminophen/HYDROcodone 325-5 MG Tab PO PRN (03:17)
--- NOTE | 2019-08-16 08:53 | PCM.PN ---
- General Info Date of Service: 08/16/19 Subjective Update: Mr. Degroot has been stable over the last 24 hours, other than ongoing chronic low back pain has been feeling well. Vital signs have been good and he has remained afebrile. - Review of Systems General: Reports: No Symptoms Pulmonary: Reports: No Symptoms Cardiovascular: Reports: No Symptoms Gastrointestinal: Reports: No Symptoms - Patient Data Vitals - Most Recent: Last Vital Signs Temp 97.9 F 08/16/19 08:00 Pulse 64 08/16/19 08:00 Resp 16 08/16/19 08:00 BP 125/52 L 08/16/19 08:00 Pulse Ox 95 08/16/19 08:00 Weight - Most Recent: 109 lb 12.643 oz Med Orders - Current: Current Medications Acetaminophen (Tylenol) 325 mg PO Q4H PRN PRN Reason: Pain (Mild 1-3)/fever Last Admin: 08/14/19 04:51 Dose: 325 mg Hydrocodone Bitart/Acetaminophen ([place] 325-5 Mg) 1 tab PO Q6H PRN PRN Reason: Pain Last Admin: 08/16/19 03:17 Dose: 1 tab Albuterol (Proventil Neb Soln) 2.5 mg NEB Q4H PRN PRN Reason: Shortness Of Breath/wheezing Citalopram Hydrobromide (Celexa) 30 mg PO DAILY [facility] Last Admin: 08/15/19 08:13 Dose: 30 mg Docusate Sodium (Colace) 100 mg PO DAILY [facility] Last Admin: 08/15/19 08:14 Dose: 100 mg Folic Acid (Folic Acid) 1 mg PO DAILY [facility] Last Admin: 08/15/19 08:14 Dose: 1 mg Losartan Potassium (Cozaar) 25 mg PO DAILY [facility] Last Admin: 08/15/19 08:14 Dose: 25 mg Melatonin (Melatonin) 9 mg PO BEDTIME [facility] Last Admin: 08/15/19 21:11 Dose: 9 mg Metoprolol Succinate (Toprol Xl) 25 mg PO DAILY [facility] Last Admin: 08/15/19 08:13 Dose: 25 mg Ondansetron HCl (Zofran) 4 mg IV Q4H PRN PRN Reason: Nausea/Vomiting Phenobarbital (Phenobarbital) 97.2 mg PO BID [facility] Last Admin: 08/15/19 21:10 Dose: 97.2 mg Phenytoin Sodium (Phenytoin) 200 mg PO BID [facility] Last Admin: 08/15/19 21:11 Dose: 200 mg Polyethylene Glycol (Miralax) 17 gm PO DAILY PRN PRN Reason: Constipation Sodium Chloride (Saline Flush) 10 ml FLUSH ASDIRECTED PRN PRN Reason: Keep Vein Open Tamsulosin HCl (Flomax) 0.4 mg PO DAILY [facility] Last Admin: 08/15/19 08:13 Dose: 0.4 mg Thiamine HCl (Vitamin B-1) 100 mg PO DAILY [facility] Last Admin: 08/15/19 08:14 Dose: 100 mg Trazodone HCl (Trazodone) 150 mg PO BEDTIME [facility] Last Admin: 08/15/19 21:11 Dose: 150 mg Discontinued Medications Acetaminophen (Tylenol) 650 mg PO Q4H PRN PRN Reason: Pain (Mild 1-3)/fever Last Admin: 07/21/19 09:19 Dose: 325 mg Acetaminophen (Tylenol) Confirm Administered Dose 325 mg .ROUTE .STEventap-MED ONE Stop: 07/21/19 01:40 Last Admin: 07/21/19 04:04 Dose: Not Given Acetaminophen (Tylenol) Confirm Administered Dose 325 mg .ROUTE .STK-MED ONE Stop: 07/21/19 05:17 Last Admin: 07/21/19 05:18 Dose: Not Given Hydrocodone Bitart/Acetaminophen ([place] 325-5 Mg) 1 tab PO Q4H PRN PRN Reason: Pain (moderate 4-6) Last Admin: 07/27/19 07:03 Dose: 1 tab Hydrocodone Bitart/Acetaminophen ([place] 325-10 Mg) 1 tab PO Q4H PRN PRN Reason: Pain (moderate 4-6) Last Admin: 08/12/19 06:43 Dose: 1 tab Hydrocodone Bitart/Acetaminophen ([place] 325-5 Mg) 1 tab PO Q4H PRN PRN Reason: Pain Last Admin: 08/14/19 08:50 Dose: 1 tab Apixaban (Eliquis) 5 mg PO BID [facility] Last Admin: 08/04/19 10:43 Dose: Not Given Gabapentin (Neurontin) 400 mg PO Q8H [facility] Stop: 07/23/19 09:47 Last Admin: 07/21/19 09:20 Dose: 400 mg Haloperidol Lactate (Haldol) 5 mg IM ONETIME ONE Stop: 07/19/19 17:21 Last Admin: 07/19/19 17:25 Dose: 5 mg Haloperidol Lactate (Haldol) 2 mg IVPUSH Q2H PRN PRN Reason: Agitation Last Admin: 07/19/19 21:00 Dose: 2 mg Multivitamins/Minerals 10 ml/Thiamine HCl 100 mg/ Folic Acid 1 mg/ Magnesium Sulfate 3 gm/ Sodium Chloride 1,017.2 mls @ 500 mls/hr IV ASDIRECTED ONE Stop: 07/19/19 17:47 Last Admin: 07/19/19 15:59 Dose: 500 mls/hr Sodium Chloride (Normal Saline) 1,000 mls @ 100 mls/hr IV ASDIRECTED [facility] Last Admin: 07/20/19 04:20 Dose: 100 mls/hr Lorazepam (Ativan) 0 mg IV ASDIRECTED [facility]; Protocol Lorazepam (Ativan) 0 mg PO ASDIRECTED [facility]; Protocol Lorazepam (Ativan) 0.5 mg PO ONETIME ONE Stop: 07/29/19 11:34 Last Admin: 07/29/19 11:41 Dose: 0.5 mg Metoprolol Succinate (Toprol Xl) 25 mg PO DAILY [facility] Stop: 07/20/19 09:15 Last Admin: 07/20/19 08:22 Dose: 25 mg Phenobarbital (Phenobarbital) 200 mg PO NOW STA Stop: 07/19/19 15:34 Last Admin: 07/19/19 16:01 Dose: Not Given Phenobarbital (Phenobarbital) 300 mg PO NOW STA Stop: 07/19/19 15:35 Last Admin: 07/19/19 15:51 Dose: 300 mg Phenobarbital (Phenobarbital) 97.2 mg PO ONETIME ONE Stop: 08/10/19 11:46 Last Admin: 08/10/19 11:41 Dose: 97.2 mg Sodium Chloride (Saline Flush) 10 ml FLUSH ASDIRECTED PRN PRN Reason: Keep Vein Open Last Admin: 07/19/19 16:01 Dose: 10 ml - Exam General: Alert, Oriented, Cooperative, No Acute Distress Lungs: Clear to Auscultation, Normal Respiratory Effort Cardiovascular: Regular Rate, Regular Rhythm, No Murmurs GI/Abdominal Exam: Soft, Non-Tender, No Organomegaly, No Distention Sepsis Event Note - Evaluation Sepsis Screening Result: No Definite Risk - Focused Exam Vital Signs: Vital Signs Temp Pulse Resp BP Pulse Ox 08/16/19 08:00 97.9 F 64 16 125/52 L 95 Date Exam was Performed: 08/16/19 Time Exam was Performed: 08:51 - Problem List Review Problem List Initiated/Reviewed/Updated: Yes - Plan Plan:: ASSESSMENT AND PLAN ALCOHOL ABUSE AND DEPENDENCE-stable. He has been committed by the state, awaiting placement. -Disposition; discharge to treatment facility on August 17 -Saline lock IV RECURRENT FALLS-no issues during the hospital stay. He has been independent. 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 Currently off medications per patient request. CHRONIC BACK PAIN-history of compression fractures. Long-term issues with pain which is currently stable. I suspect that he will be weaned off of his pain medications after hospital discharge. He will need to establish care and consider pain clinic referral after hospital discharge. SEIZURES-No seizures during the hospital stay. -Continue outpatient meds MAINTENANCE ISSUES -DVT prophylaxis; ambulatory -GI prophylaxis; PPI -Chavarria catheter; not indicated -Nutrition; 2 g sodium diet DISPOSITION-now under commitment, discharge to treatment facility tomorrow August 17
--- NOTE | 2019-08-16 09:04 | PCM.DCSUM1 ---
Discharge Summary - Hospital Course Brief History: Mr. Degroot is a 69-year-old gentleman who was admitted through the emergency department with recurrent falls secondary to alcohol intoxication and abuse. - Discharge Data Discharge Date: 08/17/19 Discharge Disposition: Home, Self-Care 01 Condition: Good - Referral to Home Health Primary Care Physician: PCP None - Discharge Diagnosis/Problem(s) (1) Alcohol dependence SNOMED Code(s): 63649759 ICD Code: F10.20 - ALCOHOL DEPENDENCE, UNCOMPLICATED Status: Acute Current Visit: Yes Qualifiers: Substance use status: with intoxication Complication of substance-induced condition: with unspecified complication Qualified Code(s): F10.229 - Alcohol dependence with intoxication, unspecified (2) Alcohol intoxication SNOMED Code(s): 56243031 ICD Code: F10.929 - ALCOHOL USE, UNSPECIFIED WITH INTOXICATION, UNSPECIFIED Status: Acute Priority: High Current Visit: Yes Qualifiers: Complication of substance-induced condition: with unspecified complication Qualified Code(s): F10.929 - Alcohol use, unspecified with intoxication, unspecified (3) Frequent falls SNOMED Code(s): 090643750 ICD Code: R29.6 - REPEATED FALLS Status: Acute Current Visit: Yes (4) Medical non-compliance SNOMED Code(s): 269766170 ICD Code: Z91.19 - PATIENT'S NONCOMPLIANCE W OTH MEDICAL TREATMENT AND REGIMEN Status: Acute Current Visit: Yes (5) Seizure disorder SNOMED Code(s): 667484972 ICD Code: G40.909 - EPILEPSY, UNSP, NOT INTRACTABLE, WITHOUT STATUS EPILEPTICUS Status: Chronic Priority: Low Current Visit: Yes (6) Chronic back pain SNOMED Code(s): 130802349 ICD Code: M54.9 - DORSALGIA, UNSPECIFIED; G89.29 - OTHER CHRONIC PAIN Status: Chronic Priority: Low Current Visit: No Qualifiers: Back pain location: back pain in unspecified location - Patient Summary/Data Consults: Consultations 07/20/19 10:25 PT Evaluation and Treatment [CONS] Routine Please Evaluate and Treat. PT Reason for Consult: Strengthening This query below is only for informational purposes and is not editable. Admission Diagnosis/Problem: Intoxication Hospital Course: Mr. Degroot is a 69-year-old gentleman who was admitted through the emergency department with seizures and alcohol intoxication. He does have a known history of seizure disorder, apparently recently because of alcohol use has not been taking his antiepileptic medications. He also has a longstanding history of alcohol abuse. Over the past month he has had 6 emergency department visits and 2 admissions related to his alcohol and narcotic addictions. After his last admission [facility] and this was felt to be a safe plan for ongoing management as he would be unable to use alcohol there. He is now back at home and abusing alcohol with recurrent falls and 3 ER visits in the last 36 hours. He has been offered the option of detox admission and then placement back in [facility] or assisted living where he is unable to consume alcohol. He refuses this option, stating that he is going to return home after this admission. Admission he was given IV fluids for hydration and restarted on his seizure medications. He was placed on a 72-hour hold and was monitored closely for alcohol withdrawal. He was started on gabapentin 400 mg every 8 hours for 4 days and then transition to 200 mg every 8 hours for an additional 4 days. He experienced no significant alcohol withdrawal. He had no further seizures noted throughout his hospital stay. Commitment proceedings were initiated. As a final result of this process he was committed as a parker of the state for required chemical dependency treatment. He had ongoing difficulty with chronic low back pain during his hospital stay. Off of alcohol he had no further falls and did receive daily physical therapy while in the hospital. By the time of discharge he was ambulating independently with use of his 4 wheeled walker. He will be discharged to inpatient chemical dependency treatment is mandated by the pending sale to [facility]. Activity will be as tolerated and he will be on a low-sodium diet. - Patient Instructions Diet: Low Sodium Activity: As Tolerated - Discharge Plan *PRESCRIPTION DRUG MONITORING PROGRAM REVIEWED*: No *COPY OF PRESCRIPTION DRUG MONITORING REPORT IN PATIENT MONSE: No Prescriptions/Med Rec: Metoprolol Succinate [Toprol XL] 25 mg PO DAILY #30 tab.er Home Medications: Home Meds PHENobarbitaL [Phenobarbital] 97.2 mg PO BID #60 tablet 09/16/16 [Rx] Phenytoin 200 mg PO BID #60 cap.er 09/16/16 [Rx] Citalopram [Citalopram HBr] 30 mg PO DAILY 10/22/16 [History] Folic Acid 1 mg PO DAILY 11/28/18 [History] Losartan Potassium 25 mg PO DAILY 11/28/18 [History] Multivitamin with Minerals [Multiple Vitamin] 1 tab PO DAILY 11/28/18 [History] Nitroglycerin 0.4 mg SL ASDIRECTED 11/28/18 [History] Tamsulosin HCl 0.4 mg PO DAILY 11/28/18 [History] Thiamine HCl [Vitamin B-1] 100 mg PO DAILY 11/28/18 [History] traZODone HCl [Trazodone HCl] 150 mg PO BEDTIME 11/28/18 [History] Acetaminophen [Tylenol] 650 mg PO Q4H PRN 12/01/18 [History] Acetaminophen/HYDROcodone [[place] 325-5 MG] 1 tab PO Q6H PRN 05/07/19 [History] Docusate Sodium [Colace] 100 mg PO DAILY 05/07/19 [History] Metoprolol Succinate [Toprol XL] 25 mg PO DAILY #30 tab.er 08/16/19 [Rx] - Discharge Summary/Plan Comment DC Time >30 min.: No - Patient Data Vitals - Most Recent: Last Vital Signs Temp 97.9 F 08/16/19 08:00 Pulse 64 08/16/19 08:00 Resp 16 08/16/19 08:00 BP 125/52 L 08/16/19 08:00 Pulse Ox 95 08/16/19 08:00 Weight - Most Recent: 109 lb 12.643 oz Med Orders - Current: Current Medications Acetaminophen (Tylenol) 325 mg PO Q4H PRN PRN Reason: Pain (Mild 1-3)/fever Last Admin: 08/14/19 04:51 Dose: 325 mg Albuterol (Proventil Neb Soln) 2.5 mg NEB Q4H PRN PRN Reason: Shortness Of Breath/wheezing Citalopram Hydrobromide (Celexa) 30 mg PO DAILY [facility] Last Admin: 08/15/19 08:13 Dose: 30 mg Docusate Sodium (Colace) 100 mg PO DAILY [facility] Last Admin: 08/15/19 08:14 Dose: 100 mg Folic Acid (Folic Acid) 1 mg PO DAILY [facility] Last Admin: 08/15/19 08:14 Dose: 1 mg Losartan Potassium (Cozaar) 25 mg PO DAILY [facility] Last Admin: 08/15/19 08:14 Dose: 25 mg Melatonin (Melatonin) 9 mg PO BEDTIME [facility] Last Admin: 08/15/19 21:11 Dose: 9 mg Metoprolol Succinate (Toprol Xl) 25 mg PO DAILY [facility] Last Admin: 08/15/19 08:13 Dose: 25 mg Ondansetron HCl (Zofran) 4 mg IV Q4H PRN PRN Reason: Nausea/Vomiting Phenobarbital (Phenobarbital) 97.2 mg PO BID [facility] Last Admin: 08/15/19 21:10 Dose: 97.2 mg Phenytoin Sodium (Phenytoin) 200 mg PO BID [facility] Last Admin: 08/15/19 21:11 Dose: 200 mg Polyethylene Glycol (Miralax) 17 gm PO DAILY PRN PRN Reason: Constipation Sodium Chloride (Saline Flush) 10 ml FLUSH ASDIRECTED PRN PRN Reason: Keep Vein Open Tamsulosin HCl (Flomax) 0.4 mg PO DAILY [facility] Last Admin: 08/15/19 08:13 Dose: 0.4 mg Thiamine HCl (Vitamin B-1) 100 mg PO DAILY [facility] Last Admin: 08/15/19 08:14 Dose: 100 mg Trazodone HCl (Trazodone) 150 mg PO BEDTIME [facility] Last Admin: 08/15/19 21:11 Dose: 150 mg Discontinued Medications Acetaminophen (Tylenol) 650 mg PO Q4H PRN PRN Reason: Pain (Mild 1-3)/fever Last Admin: 07/21/19 09:19 Dose: 325 mg Acetaminophen (Tylenol) Confirm Administered Dose 325 mg .ROUTE .STK-MED ONE Stop: 07/21/19 01:40 Last Admin: 07/21/19 04:04 Dose: Not Given Acetaminophen (Tylenol) Confirm Administered Dose 325 mg .ROUTE .STK-MED ONE Stop: 07/21/19 05:17 Last Admin: 07/21/19 05:18 Dose: Not Given Hydrocodone Bitart/Acetaminophen ([place] 325-5 Mg) 1 tab PO Q4H PRN PRN Reason: Pain (moderate 4-6) Last Admin: 07/27/19 07:03 Dose: 1 tab Hydrocodone Bitart/Acetaminophen ([place] 325-10 Mg) 1 tab PO Q4H PRN PRN Reason: Pain (moderate 4-6) Last Admin: 08/12/19 06:43 Dose: 1 tab Hydrocodone Bitart/Acetaminophen ([place] 325-5 Mg) 1 tab PO Q4H PRN PRN Reason: Pain Last Admin: 08/14/19 08:50 Dose: 1 tab Hydrocodone Bitart/Acetaminophen ([place] 325-5 Mg) 1 tab PO Q6H PRN PRN Reason: Pain Last Admin: 08/16/19 03:17 Dose: 1 tab Apixaban (Eliquis) 5 mg PO BID [facility] Last Admin: 08/04/19 10:43 Dose: Not Given Gabapentin (Neurontin) 400 mg PO Q8H [facility] Stop: 07/23/19 09:47 Last Admin: 07/21/19 09:20 Dose: 400 mg Haloperidol Lactate (Haldol) 5 mg IM ONETIME ONE Stop: 07/19/19 17:21 Last Admin: 07/19/19 17:25 Dose: 5 mg Haloperidol Lactate (Haldol) 2 mg IVPUSH Q2H PRN PRN Reason: Agitation Last Admin: 07/19/19 21:00 Dose: 2 mg Multivitamins/Minerals 10 ml/Thiamine HCl 100 mg/ Folic Acid 1 mg/ Magnesium Sulfate 3 gm/ Sodium Chloride 1,017.2 mls @ 500 mls/hr IV ASDIRECTED ONE Stop: 07/19/19 17:47 Last Admin: 07/19/19 15:59 Dose: 500 mls/hr Sodium Chloride (Normal Saline) 1,000 mls @ 100 mls/hr IV ASDIRECTED [facility] Last Admin: 07/20/19 04:20 Dose: 100 mls/hr Lorazepam (Ativan) 0 mg IV ASDIRECTED [facility]; Protocol Lorazepam (Ativan) 0 mg PO ASDIRECTED [facility]; Protocol Lorazepam (Ativan) 0.5 mg PO ONETIME ONE Stop: 07/29/19 11:34 Last Admin: 07/29/19 11:41 Dose: 0.5 mg Metoprolol Succinate (Toprol Xl) 25 mg PO DAILY [facility] Stop: 07/20/19 09:15 Last Admin: 07/20/19 08:22 Dose: 25 mg Phenobarbital (Phenobarbital) 200 mg PO NOW STA Stop: 07/19/19 15:34 Last Admin: 07/19/19 16:01 Dose: Not Given Phenobarbital (Phenobarbital) 300 mg PO NOW STA Stop: 07/19/19 15:35 Last Admin: 07/19/19 15:51 Dose: 300 mg Phenobarbital (Phenobarbital) 97.2 mg PO ONETIME ONE Stop: 08/10/19 11:46 Last Admin: 08/10/19 11:41 Dose: 97.2 mg Sodium Chloride (Saline Flush) 10 ml FLUSH ASDIRECTED PRN PRN Reason: Keep Vein Open Last Admin: 07/19/19 16:01 Dose: 10 ml - Exam General: Reports: Alert, Oriented, Cooperative, No Acute Distress Lungs: Reports: Clear to Auscultation, Normal Respiratory Effort Cardiovascular: Reports: Regular Rate, Regular Rhythm GI/Abdominal Exam: Soft, Non-Tender, No Organomegaly, No Distention *Q Meaningful Use (DIS) - VTE *Q VTE Pharmacological Contraindications *Q: High INR Value
[2019-08-16] MEDS: Folic Acid 1 MG Tab PO SCH (09:20)
[2019-08-16] MEDS: Tamsulosin 0.4 MG Cap.ER PO SCH (09:20)
[2019-08-16] MEDS: Losartan 25 MG Tab PO SCH (09:20)
[2019-08-16] MEDS: Docusate Sodium 100 MG Cap PO SCH (09:20)
[2019-08-16] MEDS: Thiamine 100 MG Tab PO SCH (09:20)
[2019-08-16] MEDS: Phenytoin 100 MG Cap.ER PO SCH ×2 (09:20→20:14)
[2019-08-16] MEDS: PHENobarbital 32.4 MG Tab PO SCH ×2 (09:20→20:13)
[2019-08-16] MEDS: Citalopram 10 MG Tab PO SCH (09:25)
[2019-08-16] MEDS: Acetaminophen 325 MG Tab PO PRN (09:30)
[2019-08-16] MEDS: Metoprolol Succinate 25 MG Tab.ER PO SCH (12:26)
[2019-08-16] MEDS: Melatonin 3 MG Tab PO SCH (20:13)
[2019-08-16] MEDS: traZODone 50 MG Tab PO SCH (20:13)
[2019-08-17] MEDS: Citalopram 10 MG Tab PO SCH (08:33)
[2019-08-17] MEDS: Thiamine 100 MG Tab PO SCH (08:33)
[2019-08-17] MEDS: Folic Acid 1 MG Tab PO SCH (08:33)
[2019-08-17] MEDS: Tamsulosin 0.4 MG Cap.ER PO SCH (08:33)
[2019-08-17] MEDS: Metoprolol Succinate 25 MG Tab.ER PO SCH (08:33)
[2019-08-17] MEDS: Docusate Sodium 100 MG Cap PO SCH (08:33)
[2019-08-17] MEDS: Losartan 25 MG Tab PO SCH (08:34)
[2019-08-17] MEDS: Phenytoin 100 MG Cap.ER PO SCH (08:34)
[2019-08-17 08:37] VITALS: BP 126/60; PULSE 70
[2019-08-17] MEDS: PHENobarbital 32.4 MG Tab PO SCH (08:37)
[2019-08-17] MEDS ORDERED: Acetaminophen 325 MG Tab PO PRN (09:15)
[2019-08-17] MEDS ORDERED: Acetaminophen 500 MG Tab PO SCH (14:00)
== END 2019-08-17 14:39 | disposition home or self-care (01) | DRG 897 ==
LOC: JP.ED 15:25 → JP.ICU 16:55
PROVIDERS: ADMIT Hospitalist; ATTEND Internal Medicine
DX: F10.239 Alcohol dependence with withdrawal, unspecified (principal); Y90.9 Presence of alcohol in blood, level not specified; E46 Unspecified protein-calorie malnutrition; F10.229 Alcohol dependence with intoxication, unspecified; R29.6 Repeated falls; G40.909 Epilepsy, unspecified, not intractable, without status epilepticus; G89.29 Other chronic pain; M54.9 Dorsalgia, unspecified; H54.7 Unspecified visual loss; H35.30 Unspecified macular degeneration; I25.10 Atherosclerotic heart disease of native coronary artery without angina pectoris; J44.9 Chronic obstructive pulmonary disease, unspecified; I11.0 Hypertensive heart disease with heart failure; C45.7 Mesothelioma of other sites; I50.9 Heart failure, unspecified; K59.09 Other constipation; K21.9 Gastro-esophageal reflux disease without esophagitis; N28.9 Disorder of kidney and ureter, unspecified; N40.0 Benign prostatic hyperplasia without lower urinary tract symptoms; M81.0 Age-related osteoporosis without current pathological fracture; G62.9 Polyneuropathy, unspecified; F32.9 Major depressive disorder, single episode, unspecified; F50.9 Eating disorder, unspecified; Z85.850 Personal history of malignant neoplasm of thyroid; Z85.118 Personal history of other malignant neoplasm of bronchus and lung; G47.00 Insomnia, unspecified; F17.210 Nicotine dependence, cigarettes, uncomplicated; F17.200 Nicotine dependence, unspecified, uncomplicated; Z85.89 Personal history of malignant neoplasm of other organs and systems; Z98.49 Cataract extraction status, unspecified eye; Z90.89 Acquired absence of other organs; Z90.49 Acquired absence of other specified parts of digestive tract; Z98.1 Arthrodesis status; Z91.19 Patient's noncompliance with other medical treatment and regimen; Z79.899 Other long term (current) drug therapy; Z88.0 Allergy status to penicillin; Z86.718 Personal history of other venous thrombosis and embolism; Z79.01 Long term (current) use of anticoagulants; Z86.711 Personal history of pulmonary embolism
CPT/HCPCS: 36415; 96365; 99284; 99285; A9270; G0480; J3411; J3475; J7030; 80048; 85025; 97110-GP; 97112-GP; 97116-GP; 97162-GP; 97530-GP; J1630; J3490

== ENCOUNTER 2019-11-17 10:06 | Emergency (ER) | payer MEDICARE, MEDICAID ==
[2019-11-17] MEDS ORDERED: Sodium Chloride 0.9% 1,000 ML IV SCH (11:00)
[2019-11-17] MEDS ORDERED: Fosphenytoin 500 MG.PE in Sodium Chloride 0.9% 50 ML IV ONE (11:08)
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
[2019-11-17] MEDS: Sodium Chloride 0.9% 1,000 ML IV SCH ×2 (11:24→12:40)
[2019-11-17] MEDS ORDERED: PHENobarbital 32.4 MG Tab PO ONE (11:30)
[2019-11-17] MEDS ORDERED: Phenytoin 100 MG Cap.ER PO ONE (11:30)
[2019-11-17 12:53] VITALS: BP 133/60; PULSE 60
[2019-11-18] MEDS ORDERED: Phenytoin 100 MG Cap.ER PO ONE (09:00)
[2019-11-18] MEDS ORDERED: PHENobarbital 32.4 MG Tab PO ONE (09:00)
== END 2019-11-17 15:40 | disposition left against medical advice (07) ==
LOC: JP.ED 10:06
DX: E86.0 Dehydration (principal); F10.129 Alcohol abuse with intoxication, unspecified; I11.0 Hypertensive heart disease with heart failure; I50.9 Heart failure, unspecified; F32.9 Major depressive disorder, single episode, unspecified; I25.10 Atherosclerotic heart disease of native coronary artery without angina pectoris; J44.9 Chronic obstructive pulmonary disease, unspecified; F17.210 Nicotine dependence, cigarettes, uncomplicated; Z79.899 Other long term (current) drug therapy; Z88.0 Allergy status to penicillin; Z86.711 Personal history of pulmonary embolism
CPT/HCPCS: 36415; 80053; 80184; 80185; 80305; 80307; 81001; 85025; 87086; 87088; 87186; 96361; 96365; 99285; A9270; J7030; J7050; Q2009; 99284

== ENCOUNTER 2019-11-19 22:01 | Emergency (ER) | payer MEDICARE, MEDICAID ==
[2019-11-19 22:26] VITALS: BP 145/77; PULSE 72
== END 2019-11-19 23:02 | disposition left against medical advice (07) ==
LOC: JP.ED 22:01
DX: Z53.21 Procedure and treatment not carried out due to patient leaving prior to being seen by health care provider (principal)

== ENCOUNTER 2019-11-22 16:45 | Inpatient (IN) | payer MEDICARE, MEDICAID ==
[2019-11-22] MEDS ORDERED: Acetaminophen/HYDROcodone 325-5 MG Tab PO ONE (16:58)
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
[2019-11-22] MEDS ORDERED: Thiamine 100 MG Tab PO ONE (17:48)
[2019-11-22] MEDS ORDERED: Sodium Chloride 0.9% 1,000 ML IV SCH (18:00)
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
--- NOTE | 2019-11-22 18:33 | CRLCR ---
INDICATION: hemoptysis HISTORY: Hemoptysis. COMPARISON: 06/03/2019. TECHNIQUE: Chest, 2 views. FINDINGS: Heart size and pulmonary vasculature are within normal limits. There is no acute airspace disease. There is no pneumothorax. The central airway is normal. Osseous structures demonstrate multiple vertebral body compression deformities, status post vertebroplasty. IMPRESSION: There is no acute airspace disease. Dictated by Chavez Mccord MD @ 11/22/2019 6:32:13 PM Dictated by: Chavez Mccord MD @ 11/22/2019 18:32:20 (Electronically Signed)
[2019-11-22] MEDS ORDERED: Sodium Chloride 0.9% 10 ML Syringe FLUSH PRN (19:30)
[2019-11-22] MEDS ORDERED: Ondansetron 4 MG/2 ML SDV IV PRN (19:30)
[2019-11-22] MEDS ORDERED: Pantoprazole 40 MG Tab.CR PO SCH (19:30)
[2019-11-22] MEDS ORDERED: LORazepam 1 MG Tab PO SCH (19:30)
[2019-11-22] MEDS ORDERED: Polyethylene Glycol 3350 Powder 17 GM Packet PO PRN (19:30)
[2019-11-22] MEDS ORDERED: Albuterol 8 GM Inhaler INH PRN (19:30)
[2019-11-22] MEDS ORDERED: LORazepam 2 MG/ML SDV ONE (19:59)
[2019-11-22] MEDS: LORazepam 2 MG/ML SDV IV SCH (20:04)
[2019-11-22] MEDS: Sodium Chloride 0.9% 1,000 ML IV SCH (20:07)
--- NOTE | 2019-11-22 20:36 | CRLCR ---
Indication: Left foot pain. Technique: Two views of the left foot. Comparison: None Findings: Fracture of the base of the 3rd metatarsal is identified. A fracture of the base of the 4th metatarsal cannot be completely excluded. Mild degenerative changes of the left foot are identified. Impression: Fracture the base of the 3rd metatarsal. Cannot exclude a fracture of the base of the 4th metatarsal Dictated by Linh Mansfield MD @ Nov 22 2019 8:34PM Signed by Dr. Linh Mansfield @ Nov 22 2019 8:35PM
[2019-11-22] MEDS ORDERED: Non-Formulary Medication 1 Each (Melatonin [Melatonin] 5 MG) PO SCH (21:00)
[2019-11-22] MEDS: Melatonin 3 MG Tab PO SCH (21:29)
[2019-11-22] MEDS: Enoxaparin 40 MG/0.4 ML Syringe SUBCUT SCH (21:29)
[2019-11-22] MEDS: Gabapentin 400 MG Cap PO SCH (21:29)
[2019-11-22] MEDS: cloNIDine 0.1 MG Tab PO SCH (21:29)
[2019-11-22] MEDS: Phenytoin 100 MG Cap.ER PO SCH (21:30)
[2019-11-22] MEDS: PHENobarbital 32.4 MG Tab PO SCH (21:30)
[2019-11-22] MEDS: traZODone 50 MG Tab PO SCH (21:30)
[2019-11-23] MEDS: LORazepam 2 MG/ML SDV IV SCH (02:35)
[2019-11-23] MEDS: Sodium Chloride 0.9% 1,000 ML IV SCH (03:32)
[2019-11-23] MEDS: cloNIDine 0.1 MG Tab PO SCH ×2 (09:38→22:45)
[2019-11-23] MEDS: Pantoprazole 40 MG Tab.CR PO SCH (09:38)
[2019-11-23] MEDS: Gabapentin 400 MG Cap PO SCH ×3 (09:39→22:43)
[2019-11-23] MEDS: Citalopram 20 MG Tab PO SCH (09:39)
[2019-11-23] MEDS: Docusate Sodium 100 MG Cap PO SCH (09:39)
[2019-11-23] MEDS: Losartan 25 MG Tab PO SCH (09:39)
[2019-11-23] MEDS: Tamsulosin 0.4 MG Cap.ER PO SCH (09:39)
[2019-11-23] MEDS: Folic Acid 1 MG Tab PO SCH (09:39)
[2019-11-23] MEDS: Phenytoin 100 MG Cap.ER PO SCH ×2 (09:40→22:42)
[2019-11-23] MEDS: Multivitamins with Iron/Calcium/Folic Acid/Minerals Tab PO SCH (09:40)
[2019-11-23] MEDS: Thiamine 100 MG Tab PO SCH (09:40)
[2019-11-23] MEDS: PHENobarbital 32.4 MG Tab PO SCH ×2 (09:42→22:44)
[2019-11-23] MEDS ORDERED: Potassium Chloride 20 MEQ Tab.ER PO ONE (10:15)
--- NOTE | 2019-11-23 10:18 | PCM.PN ---
- General Info Date of Service: 11/23/19 Subjective Update: No acute events overnight. He complains of moderate pain in the left foot which is stable. He has stable chronic lower back pain. He has received a few doses of lorazepam for alcohol withdrawal but in general is not experiencing severe withdrawal. He is sleepy but able to interact. Vital signs have been stable. No hemoptysis while he has been hospitalized. Functional Status: Reports: Pain Controlled - Review of Systems General: Denies: Fever Pulmonary: Reports: Shortness of Breath (mild). Denies: Hemoptysis Cardiovascular: Denies: Chest Pain Musculoskeletal: Reports: Foot Pain (left ) - Patient Data Vitals - Most Recent: Last Vital Signs Temp 37.1 C 11/23/19 08:00 Pulse 90 11/23/19 06:00 Resp 20 11/23/19 08:00 BP 120/57 L 11/23/19 09:39 Pulse Ox 94 L 11/23/19 08:00 Weight - Most Recent: 60.78 kg I&O - Last 24 Hours: Intake & Output 11/22/19 11/23/19 11/23/19 22:59 06:59 14:59 Intake Total 1688 Output Total 250 450 Balance 1438 -450 Lab Results Last 24 Hours: Laboratory Results - last 24 hr 11/22/19 11/22/19 11/22/19 Range/Units 17:04 17:04 17:04 WBC 9.7 (4.5-11.0) K/uL RBC 4.00 L (4.30-5.90) M/uL Hgb 13.5 (12.0-15.0) g/dL Hct 40.7 (40.0-54.0) % MCV 102 H (80-98) fL MCH 34 H (27-31) pg MCHC 33 (32-36) % Plt Count 178 (150-400) K/uL Neut % (Auto) (36-66) % Lymph % (Auto) (24-44) % Wilkes % (Auto) (2-6) % Eos % (Auto) (2-4) % Baso % (Auto) (0-1) % PT (9.5-12.0) sec INR (0.80-1.20) Sodium 151 H (140-148) mmol/L Potassium 4.3 (3.6-5.2) mmol/L Chloride 112 H (100-108) mmol/L Carbon Dioxide 30 (21-32) mmol/L Anion Gap 13.3 (5.0-14.0) mmol/L BUN 10 (7-18) mg/dL Creatinine 0.6 L (0.8-1.3) mg/dL Est Cr Clr Drug Dosing 99.19 mL/min Estimated GFR (MDRD) > 60 (>60) Glucose 96 (74-106) mg/dL Calcium 7.7 L (8.5-10.1) mg/dL Total Bilirubin (0.2-1.0) mg/dL AST (15-37) U/L ALT (12-78) U/L Alkaline Phosphatase (46-116) U/L Total Protein (6.4-8.2) g/dL Albumin (3.4-5.0) g/dL Globulin (2.3-3.5) g/dL Albumin/Globulin Ratio (1.2-2.2) Urine Color (YELLOW) Urine Appearance (CLEAR) Urine pH (5.0-8.0) Ur Specific [place] (1.008-1.030) Urine Protein (NEGATIVE) mg/dL Urine Glucose (UA) (NEGATIVE) mg/dL Urine Ketones (NEGATIVE) mg/dL Urine Occult Blood (NEGATIVE) Urine Nitrite (NEGATIVE) Urine Bilirubin (NEGATIVE) Urine Urobilinogen (0.2-1.0) EU/dL Ur Leukocyte Esterase (NEGATIVE) Urine RBC (0-5) Urine WBC (0-5) Urine Bacteria Ethyl Alcohol 229 mg/dL 11/22/19 11/23/19 11/23/19 Range/Units 19:49 04:45 04:45 WBC 9.5 (4.5-11.0) K/uL RBC 3.61 L (4.30-5.90) M/uL Hgb 12.5 (12.0-15.0) g/dL Hct 36.7 L (40.0-54.0) % MCV 102 H (80-98) fL MCH 35 H (27-31) pg MCHC 34 (32-36) % Plt Count 167 (150-400) K/uL Neut % (Auto) 71 H (36-66) % Lymph % (Auto) 20 L (24-44) % Wilkes % (Auto) 7 H (2-6) % Eos % (Auto) 2 (2-4) % Baso % (Auto) 1 (0-1) % PT 11.0 (9.5-12.0) sec INR 1.02 (0.80-1.20) Sodium (140-148) mmol/L Potassium (3.6-5.2) mmol/L Chloride (100-108) mmol/L Carbon Dioxide (21-32) mmol/L Anion Gap (5.0-14.0) mmol/L BUN (7-18) mg/dL Creatinine (0.8-1.3) mg/dL Est Cr Clr Drug Dosing mL/min Estimated GFR (MDRD) (>60) Glucose (74-106) mg/dL Calcium (8.5-10.1) mg/dL Total Bilirubin (0.2-1.0) mg/dL AST (15-37) U/L ALT (12-78) U/L Alkaline Phosphatase (46-116) U/L Total Protein (6.4-8.2) g/dL Albumin (3.4-5.0) g/dL Globulin (2.3-3.5) g/dL Albumin/Globulin Ratio (1.2-2.2) Urine Color Yellow (YELLOW) Urine Appearance Clear (CLEAR) Urine pH 5.5 (5.0-8.0) Ur Specific [place] 1.025 (1.008-1.030) Urine Protein Negative (NEGATIVE) mg/dL Urine Glucose (UA) Negative (NEGATIVE) mg/dL Urine Ketones Negative (NEGATIVE) mg/dL Urine Occult Blood Moderate H (NEGATIVE) Urine Nitrite Negative (NEGATIVE) Urine Bilirubin Negative (NEGATIVE) Urine Urobilinogen 0.2 (0.2-1.0) EU/dL Ur Leukocyte Esterase Negative (NEGATIVE) Urine RBC 5-10 H (0-5) Urine WBC Not seen (0-5) Urine Bacteria Not seen Ethyl Alcohol mg/dL 11/23/19 Range/Units 04:45 WBC (4.5-11.0) K/uL RBC (4.30-5.90) M/uL Hgb (12.0-15.0) g/dL Hct (40.0-54.0) % MCV (80-98) fL MCH (27-31) pg MCHC (32-36) % Plt Count (150-400) K/uL Neut % (Auto) (36-66) % Lymph % (Auto) (24-44) % [place] % (Auto) (2-6) % Eos % (Auto) (2-4) % Baso % (Auto) (0-1) % PT (9.5-12.0) sec INR (0.80-1.20) Sodium 146 (140-148) mmol/L Potassium 3.6 (3.6-5.2) mmol/L Chloride 110 H (100-108) mmol/L Carbon Dioxide 26 (21-32) mmol/L Anion Gap 13.6 (5.0-14.0) mmol/L BUN 11 (7-18) mg/dL Creatinine 0.5 L (0.8-1.3) mg/dL Est Cr Clr Drug Dosing 119.32 mL/min Estimated GFR (MDRD) > 60 (>60) Glucose 79 (74-106) mg/dL Calcium 7.5 L (8.5-10.1) mg/dL Total Bilirubin 0.9 D (0.2-1.0) mg/dL AST 24 (15-37) U/L ALT 33 (12-78) U/L Alkaline Phosphatase 135 H (46-116) U/L Total Protein 5.5 L (6.4-8.2) g/dL Albumin 3.0 L (3.4-5.0) g/dL Globulin 2.5 (2.3-3.5) g/dL Albumin/Globulin Ratio 1.2 (1.2-2.2) Urine Color (YELLOW) Urine Appearance (CLEAR) Urine pH (5.0-8.0) Ur Specific [place] (1.008-1.030) Urine Protein (NEGATIVE) mg/dL Urine Glucose (UA) (NEGATIVE) mg/dL Urine Ketones (NEGATIVE) mg/dL Urine Occult Blood (NEGATIVE) Urine Nitrite (NEGATIVE) Urine Bilirubin (NEGATIVE) Urine Urobilinogen (0.2-1.0) EU/dL Ur Leukocyte Esterase (NEGATIVE) Urine RBC (0-5) Urine WBC (0-5) Urine Bacteria Ethyl Alcohol mg/dL Med Orders - Current: Current Medications Acetaminophen (Tylenol) 650 mg PO Q4H PRN PRN Reason: Pain (Mild 1-3)/fever Albuterol (Ventolin Hfa) 0 gm INH Q6H PRN PRN Reason: Dyspnea Citalopram Hydrobromide (Celexa) 40 mg PO DAILY [facility] Last Admin: 11/23/19 09:39 Dose: 40 mg Clonidine HCl (Catapres) 0.1 mg PO BID [facility] Last Admin: 11/23/19 09:38 Dose: 0.1 mg Docusate Sodium (Colace) 100 mg PO DAILY [facility] Last Admin: 11/23/19 09:39 Dose: 100 mg Enoxaparin Sodium (Lovenox) 40 mg SUBCUT BEDTIME [facility] Last Admin: 11/22/19 21:29 Dose: 40 mg Folic Acid (Folic Acid) 1 mg PO DAILY [facility] Last Admin: 11/23/19 09:39 Dose: 1 mg Gabapentin (Neurontin) 400 mg PO TID [facility] Last Admin: 11/23/19 09:39 Dose: 400 mg Sodium Chloride (Normal Saline) 1,000 mls @ 125 mls/hr IV ASDIRECTED [facility] Last Admin: 11/23/19 03:32 Dose: 125 mls/hr Ibuprofen (Motrin) 600 mg PO Q8H PRN PRN Reason: Pain (moderate 4-6) Lorazepam (Ativan) 0 mg PO ASDIRECTED [facility]; Protocol Lorazepam (Ativan) 0 mg IV ASDIRECTED [facility]; Protocol Last Admin: 11/23/19 02:35 Dose: 1 mg Losartan Potassium (Cozaar) 25 mg PO DAILY [facility] Last Admin: 11/23/19 09:39 Dose: 25 mg Melatonin (Melatonin) 6 mg PO BEDTIME [facility] Last Admin: 11/22/19 21:29 Dose: 6 mg Multivitamins/Minerals (Thera M Plus) 1 tab PO DAILY [facility] Last Admin: 11/23/19 09:40 Dose: 1 tab Ondansetron HCl (Zofran) 4 mg IV Q4H PRN PRN Reason: Nausea/Vomiting Pantoprazole Sodium (Protonix) 40 mg PO DAILY@0730 [facility] Last Admin: 11/23/19 09:38 Dose: 40 mg Phenobarbital (Phenobarbital) 97.2 mg PO BID [facility] Last Admin: 11/23/19 09:42 Dose: 97.2 mg Phenytoin Sodium (Phenytoin) 200 mg PO BID [facility] Last Admin: 11/23/19 09:40 Dose: 200 mg Polyethylene Glycol (Miralax) 17 gm PO DAILY PRN PRN Reason: Constipation Potassium Chloride (Klor-Con M20) 40 meq PO ONETIME ONE Stop: 11/23/19 10:16 Sodium Chloride (Saline Flush) 10 ml FLUSH ASDIRECTED PRN PRN Reason: Keep Vein Open Tamsulosin HCl (Flomax) 0.4 mg PO DAILY [facility] Last Admin: 11/23/19 09:39 Dose: 0.4 mg Thiamine HCl (Vitamin B-1) 100 mg PO DAILY [facility] Last Admin: 11/23/19 09:40 Dose: 100 mg Trazodone HCl (Trazodone) 150 mg PO BEDTIME [facility] Last Admin: 11/22/19 21:30 Dose: 150 mg Discontinued Medications Hydrocodone Bitart/Acetaminophen ([place] 325-5 Mg) 1 tab PO ONETIME ONE Stop: 11/22/19 16:59 Last Admin: 11/22/19 17:03 Dose: 1 tab Sodium Chloride (Normal Saline) 1,000 mls @ 150 mls/hr IV ASDIRECTED [facility] Last Admin: 11/22/19 18:23 Dose: 150 mls/hr Lorazepam (Ativan) Confirm Administered Dose 2 mg .ROUTE .STK-MED ONE Stop: 11/22/19 20:00 Last Admin: 11/22/19 20:05 Dose: Not Given Non-Formulary Medication (Melatonin [Melatonin]) 5 mg PO BEDTIME [facility] Pantoprazole Sodium (Protonix) 40 mg PO DAILY [facility] Last Admin: 11/22/19 21:29 Dose: 40 mg Thiamine HCl (Vitamin B-1) 100 mg PO ONETIME ONE Stop: 11/22/19 17:49 Last Admin: 11/22/19 18:23 Dose: 100 mg - Exam Quality Assessment: No: Supplemental Oxygen General: Alert, Cooperative, No Acute Distress HEENT: Pupils Equal Lungs: Clear to Auscultation, Normal Respiratory Effort. No: Crackles, Wheezing Cardiovascular: Regular Rate, Regular Rhythm GI/Abdominal Exam: Soft, No Distention Extremities: Pedal Edema (left foot ). No: Increased Warmth Skin: Warm, Dry, Ecchymosis (top of left foot ) Psy/Mental Status: Alert, Normal Affect. No: Agitated Sepsis Event Note - Evaluation Sepsis Screening Result: No Definite Risk - Focused Exam Vital Signs: Vital Signs Temp Pulse Resp BP BP Pulse Ox 11/23/19 09:39 120/57 L 11/23/19 09:38 120/57 L 11/23/19 08:00 37.1 C 20 120/57 L 94 L 11/23/19 06:00 90 20 127/67 97 11/23/19 04:00 36.7 C 90 21 H 125/67 96 11/23/19 02:00 92 18 124/68 96 11/23/19 00:00 36.7 C 100 19 114/72 93 L Date Exam was Performed: 11/23/19 Time Exam was Performed: 15:42 - Problem List Review Problem List Initiated/Reviewed/Updated: Yes - My Orders Last 24 Hours: My Active Orders 11/23/19 10:15 Chest w Cont [CT] Routine Potassium Chloride [Klor-Con M20] 40 meq PO ONETIME ONE 11/23/19 10:16 Ibuprofen [Motrin] 600 mg PO Q8H PRN - Plan Plan:: ASSESSMENT AND PLAN HEMOPTYSIS-he reports a history of asbestos exposure as well as a history of mesothelioma. Chest x-ray clear. No fevers. No hemoptysis during the hospital stay. -CT scan of the chest -Depending on results may require bronchoscopy ALCOHOL ABUSE AND DEPENDENCE- He is unable to control his alcohol use and requires a more structured living situation where he is kept off of alcohol. Currently on State commitment because of his ongoing alcohol use. Recently discharged from treatment facility and started drinking almost immediately. 72- hour hold placed today because of strong concern for risk of harm to self. -Saline lock IV -Gabapentin protocol for alcohol withdrawal -Alcohol withdrawal protocol RECURRENT FALLS-secondary to ongoing alcohol abuse SEIZURES-history of underlying seizure disorder. Now back on his seizure medications and no issues during the hospital stay. -Continue outpatient medical therapy for seizures MAINTENANCE ISSUES -DVT prophylaxis; Lovenox 40 mg subcu daily -GI prophylaxis; continue outpatient PPI therapy -Chavarria catheter; not indicated -Nutrition; 2 g sodium diet DISPOSITION-anticipate discharge to treatment facility on commitment Anthony Sotelo MD
[2019-11-23] MEDS ORDERED: Iopamidol 612 MG/ML 100 ML Bottle IV SCH (11:00)
[2019-11-23] MEDS ORDERED: Sodium Chloride 0.9% 10 ML Syringe FLUSH ONE (11:03)
[2019-11-23] MEDS ORDERED: Sodium Chloride 0.9% 75 ML IV SCH (11:15)
--- NOTE | 2019-11-23 14:05 | CT ---
Chest w Cont CLINICAL HISTORY: Hemoptysis TECHNIQUE: Transverse scans were obtained from the thoracic inlet to the lung bases with IV contrast enhancement. Auto dosage reduction and iterative reconstruction techniques employed. COMPARISONS: CT chest 09/14/2016 FINDINGS: Lungs are diffusely emphysematous. This is increased since prior study. There is diffuse bronchiectasis also increased since prior study. There is some traction bronchiectasis in the lung bases. There is honeycombing throughout both lower lobes. There is some infiltrate and/or atelectasis at both lung bases with some areas of consolidation. Discrete are in the right There appears to be some underlying This is new since prior study. Mediastinum is free of mass or suspicious lymphadenopathy IMPRESSION: Significant progression of chronic lung changes including some honeycombing and bronchiectasis in both lower lobes. Findings is most consistent with usual interstitial pneumonia Bibasal infiltrates and areas of consolidation. This may represent superimposed infection No pulmonary mass or adenopathy
[2019-11-23] MEDS: Ibuprofen 600 MG Tab PO PRN (18:13)
[2019-11-23] MEDS: traZODone 50 MG Tab PO SCH (22:42)
[2019-11-23] MEDS: Melatonin 3 MG Tab PO SCH (22:42)
[2019-11-23] MEDS: Enoxaparin 40 MG/0.4 ML Syringe SUBCUT SCH (22:43)
[2019-11-24] MEDS: Ibuprofen 600 MG Tab PO PRN ×2 (06:22→19:42)
[2019-11-24] MEDS: cloNIDine 0.1 MG Tab PO SCH ×3 (09:03→21:41)
[2019-11-24] MEDS: Citalopram 20 MG Tab PO SCH (09:03)
[2019-11-24] MEDS: Gabapentin 400 MG Cap PO SCH ×4 (09:03→21:42)
[2019-11-24] MEDS: PHENobarbital 32.4 MG Tab PO SCH ×3 (09:03→21:42)
[2019-11-24] MEDS: Tamsulosin 0.4 MG Cap.ER PO SCH (09:03)
[2019-11-24] MEDS: Losartan 25 MG Tab PO SCH (09:04)
[2019-11-24] MEDS: Phenytoin 100 MG Cap.ER PO SCH ×3 (09:04→21:42)
[2019-11-24] MEDS: Multivitamins with Iron/Calcium/Folic Acid/Minerals Tab PO SCH (09:04)
[2019-11-24] MEDS: Docusate Sodium 100 MG Cap PO SCH (09:04)
[2019-11-24] MEDS: Folic Acid 1 MG Tab PO SCH (09:04)
[2019-11-24] MEDS: Thiamine 100 MG Tab PO SCH (09:04)
[2019-11-24] MEDS: Pantoprazole 40 MG Tab.CR PO SCH (09:05)
--- NOTE | 2019-11-24 10:46 | PCM.PN ---
- General Info Date of Service: 11/24/19 Subjective Update: No acute events overnight. Still having some pain in his left foot in the area of the fracture. No fevers. No hemoptysis. No shortness of breath. CT scan of the chest yesterday showed some pulmonary fibrosis but no acute findings. Patient is on a 72-hour hold. [facility] and [facility] system are working on discharge plan. Functional Status: Reports: Pain Controlled, Tolerating Diet - Review of Systems General: Denies: Fever Musculoskeletal: Reports: Foot Pain - Patient Data Vitals - Most Recent: Last Vital Signs Temp 36.6 C 11/24/19 08:00 Pulse 49 L 11/24/19 06:00 Resp 18 11/24/19 08:00 BP 115/50 L 11/24/19 09:04 Pulse Ox 92 L 11/24/19 08:00 Weight - Most Recent: 60.78 kg I&O - Last 24 Hours: Intake & Output 11/23/19 11/24/19 11/24/19 22:59 06:59 14:59 Intake Total 240 Output Total 850 Balance -610 Med Orders - Current: Current Medications Acetaminophen (Tylenol) 650 mg PO Q4H PRN PRN Reason: Pain (Mild 1-3)/fever Albuterol (Ventolin Hfa) 0 gm INH Q6H PRN PRN Reason: Dyspnea Citalopram Hydrobromide (Celexa) 40 mg PO DAILY [facility] Last Admin: 11/24/19 09:03 Dose: 40 mg Clonidine HCl (Catapres) 0.1 mg PO BID [facility] Last Admin: 11/24/19 09:03 Dose: 0.1 mg Docusate Sodium (Colace) 100 mg PO DAILY [facility] Last Admin: 11/24/19 09:04 Dose: 100 mg Enoxaparin Sodium (Lovenox) 40 mg SUBCUT BEDTIME [facility] Last Admin: 11/23/19 22:43 Dose: 40 mg Folic Acid (Folic Acid) 1 mg PO DAILY [facility] Last Admin: 11/24/19 09:04 Dose: 1 mg Gabapentin (Neurontin) 400 mg PO TID [facility] Last Admin: 11/24/19 09:03 Dose: 400 mg Ibuprofen (Motrin) 600 mg PO Q8H PRN PRN Reason: Pain (moderate 4-6) Last Admin: 06/02/20 06:22 Dose: 600 mg Lorazepam (Ativan) 0 mg PO ASDIRECTED [facility]; Protocol Lorazepam (Ativan) 0 mg IV ASDIRECTED [facility]; Protocol Last Admin: 11/23/19 02:35 Dose: 1 mg Losartan Potassium (Cozaar) 25 mg PO DAILY [facility] Last Admin: 11/24/19 09:04 Dose: 25 mg Melatonin (Melatonin) 6 mg PO BEDTIME [facility] Last Admin: 11/23/19 22:42 Dose: 6 mg Multivitamins/Minerals (Thera M Plus) 1 tab PO DAILY [facility] Last Admin: 11/24/19 09:04 Dose: 1 tab Ondansetron HCl (Zofran) 4 mg IV Q4H PRN PRN Reason: Nausea/Vomiting Pantoprazole Sodium (Protonix) 40 mg PO DAILY@0730 [facility] Last Admin: 11/24/19 09:05 Dose: 40 mg Phenobarbital (Phenobarbital) 97.2 mg PO BID [facility] Last Admin: 11/24/19 09:03 Dose: 97.2 mg Phenytoin Sodium (Phenytoin) 200 mg PO BID [facility] Last Admin: 11/24/19 09:04 Dose: 200 mg Polyethylene Glycol (Miralax) 17 gm PO DAILY PRN PRN Reason: Constipation Sodium Chloride (Saline Flush) 10 ml FLUSH ASDIRECTED PRN PRN Reason: Keep Vein Open Tamsulosin HCl (Flomax) 0.4 mg PO DAILY [facility] Last Admin: 11/24/19 09:03 Dose: 0.4 mg Thiamine HCl (Vitamin B-1) 100 mg PO DAILY [facility] Last Admin: 11/24/19 09:04 Dose: 100 mg Trazodone HCl (Trazodone) 150 mg PO BEDTIME [facility] Last Admin: 11/23/19 22:42 Dose: 150 mg Discontinued Medications Hydrocodone Bitart/Acetaminophen ([place] 325-5 Mg) 1 tab PO ONETIME ONE Stop: 11/22/19 16:59 Last Admin: 11/22/19 17:03 Dose: 1 tab Sodium Chloride (Normal Saline) 1,000 mls @ 150 mls/hr IV ASDIRECTED [facility] Last Admin: 11/22/19 18:23 Dose: 150 mls/hr Sodium Chloride (Normal Saline) 1,000 mls @ 125 mls/hr IV ASDIRECTED [facility] Last Admin: 11/23/19 03:32 Dose: 125 mls/hr Sodium Chloride (Normal Saline) 75 mls @ 3 mls/sec IV ASDIRECTED [facility] Stop: 11/23/19 14:00 Last Admin: 11/23/19 11:26 Dose: 3 mls/sec Iopamidol (Isovue-300 (61%)) 100 ml IV . DIRECTED [facility] Stop: 11/23/19 14:00 Last Admin: 11/23/19 11:26 Dose: 100 ml Lorazepam (Ativan) Confirm Administered Dose 2 mg .ROUTE .STK-MED ONE Stop: 11/22/19 20:00 Last Admin: 11/22/19 20:05 Dose: Not Given Non-Formulary Medication (Melatonin [Melatonin]) 5 mg PO BEDTIME [facility] Pantoprazole Sodium (Protonix) 40 mg PO DAILY [facility] Last Admin: 11/22/19 21:29 Dose: 40 mg Potassium Chloride (Klor-Con M20) 40 meq PO ONETIME ONE Stop: 11/23/19 10:16 Last Admin: 11/23/19 12:27 Dose: 40 meq Sodium Chloride (Saline Flush) 10 ml FLUSH ONETIME ONE Stop: 11/23/19 11:04 Last Admin: 11/23/19 11:26 Dose: 10 ml Thiamine HCl (Vitamin B-1) 100 mg PO ONETIME ONE Stop: 11/22/19 17:49 Last Admin: 11/22/19 18:23 Dose: 100 mg - Exam Quality Assessment: No: Supplemental Oxygen General: Alert, Oriented, Cooperative, No Acute Distress Lungs: Normal Respiratory Effort GI/Abdominal Exam: Soft, No Distention Extremities: Pedal Edema (mild left foot ), Other (left foot wrapped with [place] from toes to lower leg ) Skin: Warm, Dry, Ecchymosis (left eye ) Psy/Mental Status: Alert, Normal Affect Sepsis Event Note - Evaluation Sepsis Screening Result: No Definite Risk - Focused Exam Vital Signs: Vital Signs Temp Pulse Resp BP BP Pulse Ox 11/24/19 09:04 115/50 L 11/24/19 09:03 115/50 L 11/24/19 08:00 36.6 C 18 114/52 L 92 L 11/24/19 06:00 49 L 17 107/51 L 92 L 11/24/19 04:00 52 L 17 109/52 L 93 L 11/24/19 02:00 60 19 113/48 L 93 L 11/24/19 00:00 67 18 111/48 L 93 L Date Exam was Performed: 11/24/19 Time Exam was Performed: 10:58 - Problem List Review Problem List Initiated/Reviewed/Updated: Yes - My Orders Last 24 Hours: My Active Orders 11/23/19 10:16 Ibuprofen [Motrin] 600 mg PO Q8H PRN 11/23/19 10:21 Convert IV to Saline Lock [OM.PC] Routine 11/24/19 10:45 PT Evaluation and Treatment [CONS] Routine - Plan Plan:: ASSESSMENT AND PLAN HEMOPTYSIS-he reports a history of asbestos exposure as well as a history of mesothelioma. Chest x-ray clear. CT scan showed some lower lung pulmonary fibrosis but no obvious source for hemoptysis. Could be related to posterior nosebleeds. No active bleeding at this time. ALCOHOL ABUSE AND DEPENDENCE-unable to control his alcohol use and requires a more structured living situation where he is kept off of alcohol. Currently on State commitment because of his ongoing alcohol use. Recently discharged from treatment facility and started drinking almost immediately. 72-hour hold placed today because of strong concern for risk of harm to self. No evidence for alcohol withdrawal so far. -Saline lock IV -Gabapentin protocol for alcohol withdrawal -Discontinue alcohol withdrawal protocol RECURRENT FALLS-secondary to ongoing alcohol abuse SEIZURES-history of underlying seizure disorder. Now back on his seizure medications and no issues during the hospital stay. -Continue outpatient medical therapy for seizures MAINTENANCE ISSUES -DVT prophylaxis; Lovenox 40 mg subcu daily -GI prophylaxis; continue outpatient PPI therapy -Chavarria catheter; not indicated -Nutrition; 2 g sodium diet DISPOSITION-anticipate discharge to treatment facility on commitment Anthony Sotelo MD
[2019-11-24] MEDS: Enoxaparin 40 MG/0.4 ML Syringe SUBCUT SCH ×2 (19:40→21:41)
[2019-11-24] MEDS: Melatonin 3 MG Tab PO SCH ×2 (19:41→21:42)
[2019-11-24] MEDS: traZODone 50 MG Tab PO SCH ×2 (19:42→21:42)
[2019-11-25] MEDS: Pantoprazole 40 MG Tab.CR PO SCH (07:34)
[2019-11-25] MEDS: Losartan 25 MG Tab PO SCH (08:13)
[2019-11-25] MEDS: Gabapentin 400 MG Cap PO SCH ×3 (08:14→20:54)
[2019-11-25] MEDS: Citalopram 20 MG Tab PO SCH (08:14)
[2019-11-25] MEDS: cloNIDine 0.1 MG Tab PO SCH ×2 (08:14→20:52)
[2019-11-25] MEDS: Tamsulosin 0.4 MG Cap.ER PO SCH (08:14)
[2019-11-25] MEDS: Multivitamins with Iron/Calcium/Folic Acid/Minerals Tab PO SCH (08:14)
[2019-11-25] MEDS: PHENobarbital 32.4 MG Tab PO SCH ×2 (08:14→20:54)
[2019-11-25] MEDS: Folic Acid 1 MG Tab PO SCH (08:15)
[2019-11-25] MEDS: Phenytoin 100 MG Cap.ER PO SCH ×2 (08:15→20:54)
[2019-11-25] MEDS: Thiamine 100 MG Tab PO SCH (08:15)
[2019-11-25] MEDS: Docusate Sodium 100 MG Cap PO SCH (08:15)
[2019-11-25] MEDS: Ibuprofen 600 MG Tab PO PRN ×2 (08:24→16:37)
--- NOTE | 2019-11-25 09:52 | PCM.PN ---
- General Info Date of Service: 11/25/19 Subjective Update: No acute events overnight. No evidence for ongoing alcohol withdrawal. Left foot pain is stable. Chronic back pain is stable. Vitals are stable. He was able to get around the room with a walker and physical therapy. Functional Status: Reports: Pain Controlled, Tolerating Diet - Review of Systems General: Denies: Fever - Patient Data Vitals - Most Recent: Last Vital Signs Temp 36.1 C 11/25/19 07:37 Pulse 67 11/25/19 07:37 Resp 16 11/25/19 07:37 BP 137/62 11/25/19 08:14 Pulse Ox 94 L 11/25/19 07:37 Weight - Most Recent: 60.78 kg I&O - Last 24 Hours: Intake & Output 11/24/19 11/25/19 11/25/19 22:59 06:59 14:59 Intake Total 240 240 Balance 240 240 Med Orders - Current: Current Medications Acetaminophen (Tylenol) 650 mg PO Q4H PRN PRN Reason: Pain (Mild 1-3)/fever Albuterol (Ventolin Hfa) 0 gm INH Q6H PRN PRN Reason: Dyspnea Citalopram Hydrobromide (Celexa) 40 mg PO DAILY [facility] Last Admin: 11/25/19 08:14 Dose: 40 mg Clonidine HCl (Catapres) 0.1 mg PO BID [facility] Last Admin: 11/25/19 08:14 Dose: 0.1 mg Docusate Sodium (Colace) 100 mg PO DAILY [facility] Last Admin: 11/25/19 08:15 Dose: 100 mg Enoxaparin Sodium (Lovenox) 40 mg SUBCUT BEDTIME [facility] Last Admin: 11/24/19 21:41 Dose: Not Given Folic Acid (Folic Acid) 1 mg PO DAILY [facility] Last Admin: 11/25/19 08:15 Dose: 1 mg Gabapentin (Neurontin) 400 mg PO TID [facility] Last Admin: 11/25/19 08:14 Dose: 400 mg Ibuprofen (Motrin) 600 mg PO Q8H PRN PRN Reason: Pain (moderate 4-6) Last Admin: 11/25/19 08:24 Dose: 600 mg Losartan Potassium (Cozaar) 25 mg PO DAILY [facility] Last Admin: 11/25/19 08:13 Dose: 25 mg Melatonin (Melatonin) 6 mg PO BEDTIME [facility] Last Admin: 11/24/19 21:42 Dose: Not Given Multivitamins/Minerals (Thera M Plus) 1 tab PO DAILY [facility] Last Admin: 11/25/19 08:14 Dose: 1 tab Ondansetron HCl (Zofran) 4 mg IV Q4H PRN PRN Reason: Nausea/Vomiting Pantoprazole Sodium (Protonix) 40 mg PO DAILY@0730 [facility] Last Admin: 11/25/19 07:34 Dose: 40 mg Phenobarbital (Phenobarbital) 97.2 mg PO BID [facility] Last Admin: 11/25/19 08:14 Dose: 97.2 mg Phenytoin Sodium (Phenytoin) 200 mg PO BID [facility] Last Admin: 11/25/19 08:15 Dose: 200 mg Polyethylene Glycol (Miralax) 17 gm PO DAILY PRN PRN Reason: Constipation Sodium Chloride (Saline Flush) 10 ml FLUSH ASDIRECTED PRN PRN Reason: Keep Vein Open Tamsulosin HCl (Flomax) 0.4 mg PO DAILY [facility] Last Admin: 11/25/19 08:14 Dose: 0.4 mg Thiamine HCl (Vitamin B-1) 100 mg PO DAILY [facility] Last Admin: 11/25/19 08:15 Dose: 100 mg Trazodone HCl (Trazodone) 150 mg PO BEDTIME [facility] Last Admin: 11/24/19 21:42 Dose: Not Given Discontinued Medications Hydrocodone Bitart/Acetaminophen ([place] 325-5 Mg) 1 tab PO ONETIME ONE Stop: 11/22/19 16:59 Last Admin: 11/22/19 17:03 Dose: 1 tab Sodium Chloride (Normal Saline) 1,000 mls @ 150 mls/hr IV ASDIRECTED [facility] Last Admin: 11/22/19 18:23 Dose: 150 mls/hr Sodium Chloride (Normal Saline) 1,000 mls @ 125 mls/hr IV ASDIRECTED [facility] Last Admin: 11/23/19 03:32 Dose: 125 mls/hr Sodium Chloride (Normal Saline) 75 mls @ 3 mls/sec IV ASDIRECTED [facility] Stop: 11/23/19 14:00 Last Admin: 11/23/19 11:26 Dose: 3 mls/sec Iopamidol (Isovue-300 (61%)) 100 ml IV . DIRECTED [facility] Stop: 11/23/19 14:00 Last Admin: 11/23/19 11:26 Dose: 100 ml Lorazepam (Ativan) 0 mg PO ASDIRECTED [facility]; Protocol Lorazepam (Ativan) 0 mg IV ASDIRECTED [facility]; Protocol Last Admin: 11/23/19 02:35 Dose: 1 mg Lorazepam (Ativan) Confirm Administered Dose 2 mg .ROUTE .STK-MED ONE Stop: 11/22/19 20:00 Last Admin: 11/22/19 20:05 Dose: Not Given Non-Formulary Medication (Melatonin [Melatonin]) 5 mg PO BEDTIME [facility] Pantoprazole Sodium (Protonix) 40 mg PO DAILY [facility] Last Admin: 11/22/19 21:29 Dose: 40 mg Potassium Chloride (Klor-Con M20) 40 meq PO ONETIME ONE Stop: 11/23/19 10:16 Last Admin: 11/23/19 12:27 Dose: 40 meq Sodium Chloride (Saline Flush) 10 ml FLUSH ONETIME ONE Stop: 11/23/19 11:04 Last Admin: 11/23/19 11:26 Dose: 10 ml Thiamine HCl (Vitamin B-1) 100 mg PO ONETIME ONE Stop: 11/22/19 17:49 Last Admin: 11/22/19 18:23 Dose: 100 mg - Exam Quality Assessment: No: Supplemental Oxygen General: Alert, Oriented, Cooperative, No Acute Distress Lungs: Normal Respiratory Effort GI/Abdominal Exam: Soft, No Distention Extremities: Pedal Edema (mild left foot ), Other (left foot wrapped with SHERIF) Psy/Mental Status: Alert, Normal Affect Sepsis Event Note - Evaluation Sepsis Screening Result: No Definite Risk - Focused Exam Vital Signs: Vital Signs Temp Pulse Resp BP BP Pulse Ox 11/25/19 08:14 137/62 11/25/19 08:13 137/62 11/25/19 07:37 36.1 C 67 16 137/62 94 L 11/25/19 04:00 80 18 93 L 11/25/19 00:00 79 17 114/53 L 93 L Date Exam was Performed: 11/25/19 Time Exam was Performed: 14:17 - Problem List Review Problem List Initiated/Reviewed/Updated: Yes - My Orders Last 24 Hours: My Active Orders 11/24/19 10:45 PT Evaluation and Treatment [CONS] Routine - Plan Plan:: ASSESSMENT AND PLAN HEMOPTYSIS-he reports a history of asbestos exposure as well as a history of mesothelioma. Chest x-ray clear. CT scan showed some lower lung pulmonary fibrosis but no obvious source for hemoptysis. Could be related to posterior nosebleeds. No active bleeding at this time. ALCOHOL ABUSE AND DEPENDENCE-unable to control his alcohol use and requires a more structured living situation where he is kept off of alcohol. Currently on State commitment because of his ongoing alcohol use. Recently discharged from treatment facility and started drinking almost immediately. 72-hour hold placed today because of strong concern for risk of harm to self. No evidence for alcohol withdrawal so far. -Saline lock IV -Gabapentin protocol for alcohol withdrawal -Discontinue alcohol withdrawal protocol Third metatarsal [id number] revealed a fracture at the base of the third metatarsal. Unknown injury per the patient report. Orthopedic input appreciated. -Wrap left foot with Sherif wrap to help with swelling -Weightbearing as tolerated -CAM when he is ambulating -Encourage use of walker RECURRENT FALLS-secondary to ongoing alcohol abuse. None during the hospital stay. SEIZURES-no issues during the hospital stay. -Continue outpatient medical therapy for seizures MAINTENANCE ISSUES -DVT prophylaxis; Lovenox 40 mg subcu daily -GI prophylaxis; continue outpatient PPI therapy -Chavarria catheter; not indicated -Nutrition; 2 g sodium diet DISPOSITION-anticipate discharge to treatment facility on commitment Anthony Sotelo MD
[2019-11-25] MEDS: Acetaminophen 325 MG Tab PO PRN ×3 (10:22→20:58)
[2019-11-25] MEDS: Melatonin 3 MG Tab PO SCH (20:53)
[2019-11-25] MEDS: Enoxaparin 40 MG/0.4 ML Syringe SUBCUT SCH (20:53)
[2019-11-25] MEDS: traZODone 50 MG Tab PO SCH (20:54)
[2019-11-26] MEDS: Ibuprofen 600 MG Tab PO PRN ×3 (00:57→21:50)
[2019-11-26] MEDS: Acetaminophen 325 MG Tab PO PRN ×3 (00:58→21:52)
[2019-11-26] MEDS: Pantoprazole 40 MG Tab.CR PO SCH (08:33)
[2019-11-26] MEDS: cloNIDine 0.1 MG Tab PO SCH ×2 (08:34→21:51)
[2019-11-26] MEDS: Citalopram 20 MG Tab PO SCH (08:35)
[2019-11-26] MEDS: Docusate Sodium 100 MG Cap PO SCH (08:36)
[2019-11-26] MEDS: Losartan 25 MG Tab PO SCH (08:36)
[2019-11-26] MEDS: Gabapentin 400 MG Cap PO SCH ×3 (08:37→21:52)
[2019-11-26] MEDS: Tamsulosin 0.4 MG Cap.ER PO SCH (08:37)
[2019-11-26] MEDS: Folic Acid 1 MG Tab PO SCH (08:37)
[2019-11-26] MEDS: Thiamine 100 MG Tab PO SCH (08:38)
[2019-11-26] MEDS: Phenytoin 100 MG Cap.ER PO SCH ×2 (08:38→21:53)
[2019-11-26] MEDS: Multivitamins with Iron/Calcium/Folic Acid/Minerals Tab PO SCH (08:38)
[2019-11-26] MEDS: PHENobarbital 32.4 MG Tab PO SCH ×2 (08:40→21:50)
--- NOTE | 2019-11-26 10:59 | PCM.PN ---
- General Info Date of Service: 11/26/19 Subjective Update: No acute events overnight. Pain stable. He has not been compliant with wrapping his foot to help with the swelling or using his cam walker when he is up and moving around. He limps around on his heel. Vitals are stable. He is asking for pain medications and cigarettes today. No evidence for ongoing alcohol withdrawal. Functional Status: Reports: Pain Controlled - Review of Systems General: Denies: Fever - Patient Data Vitals - Most Recent: Last Vital Signs Temp 36.4 C 11/26/19 09:33 Pulse 86 11/26/19 09:33 Resp 18 11/26/19 09:33 BP 120/52 L 11/26/19 09:33 Pulse Ox 90 L 11/26/19 06:00 Weight - Most Recent: 60.78 kg I&O - Last 24 Hours: Intake & Output 11/25/19 11/26/19 11/26/19 22:59 06:59 14:59 Intake Total 590 Balance 590 Med Orders - Current: Current Medications Acetaminophen (Tylenol) 650 mg PO Q4H PRN PRN Reason: Pain (Mild 1-3)/fever Last Admin: 11/26/19 00:58 Dose: 650 mg Albuterol (Ventolin Hfa) 0 gm INH Q6H PRN PRN Reason: Dyspnea Citalopram Hydrobromide (Celexa) 40 mg PO DAILY [facility] Last Admin: 11/26/19 08:35 Dose: 40 mg Clonidine HCl (Catapres) 0.1 mg PO BID [facility] Last Admin: 11/26/19 08:34 Dose: 0.1 mg Docusate Sodium (Colace) 100 mg PO DAILY [facility] Last Admin: 11/26/19 08:36 Dose: 100 mg Enoxaparin Sodium (Lovenox) 40 mg SUBCUT BEDTIME [facility] Last Admin: 11/25/19 20:53 Dose: 40 mg Folic Acid (Folic Acid) 1 mg PO DAILY [facility] Last Admin: 11/26/19 08:37 Dose: 1 mg Gabapentin (Neurontin) 400 mg PO TID [facility] Last Admin: 11/26/19 08:37 Dose: 400 mg Ibuprofen (Motrin) 600 mg PO Q8H PRN PRN Reason: Pain (moderate 4-6) Last Admin: 11/26/19 00:57 Dose: 600 mg Losartan Potassium (Cozaar) 25 mg PO DAILY [facility] Last Admin: 11/26/19 08:36 Dose: 25 mg Melatonin (Melatonin) 6 mg PO BEDTIME [facility] Last Admin: 11/25/19 20:53 Dose: 6 mg Multivitamins/Minerals (Thera M Plus) 1 tab PO DAILY [facility] Last Admin: 11/26/19 08:38 Dose: 1 tab Ondansetron HCl (Zofran) 4 mg IV Q4H PRN PRN Reason: Nausea/Vomiting Pantoprazole Sodium (Protonix) 40 mg PO DAILY@0730 [facility] Last Admin: 11/26/19 08:33 Dose: 40 mg Phenobarbital (Phenobarbital) 97.2 mg PO BID [facility] Last Admin: 11/26/19 08:40 Dose: 97.2 mg Phenytoin Sodium (Phenytoin) 200 mg PO BID [facility] Last Admin: 11/26/19 08:38 Dose: 200 mg Polyethylene Glycol (Miralax) 17 gm PO DAILY PRN PRN Reason: Constipation Sodium Chloride (Saline Flush) 10 ml FLUSH ASDIRECTED PRN PRN Reason: Keep Vein Open Tamsulosin HCl (Flomax) 0.4 mg PO DAILY [facility] Last Admin: 11/26/19 08:37 Dose: 0.4 mg Thiamine HCl (Vitamin B-1) 100 mg PO DAILY [facility] Last Admin: 11/26/19 08:38 Dose: 100 mg Trazodone HCl (Trazodone) 150 mg PO BEDTIME [facility] Last Admin: 11/25/19 20:54 Dose: 150 mg Discontinued Medications Hydrocodone Bitart/Acetaminophen ([place] 325-5 Mg) 1 tab PO ONETIME ONE Stop: 11/22/19 16:59 Last Admin: 11/22/19 17:03 Dose: 1 tab Sodium Chloride (Normal Saline) 1,000 mls @ 150 mls/hr IV ASDIRECTED [facility] Last Admin: 11/22/19 18:23 Dose: 150 mls/hr Sodium Chloride (Normal Saline) 1,000 mls @ 125 mls/hr IV ASDIRECTED [facility] Last Admin: 11/23/19 03:32 Dose: 125 mls/hr Sodium Chloride (Normal Saline) 75 mls @ 3 mls/sec IV ASDIRECTED [facility] Stop: 11/23/19 14:00 Last Admin: 11/23/19 11:26 Dose: 3 mls/sec Iopamidol (Isovue-300 (61%)) 100 ml IV . DIRECTED [facility] Stop: 11/23/19 14:00 Last Admin: 11/23/19 11:26 Dose: 100 ml Lorazepam (Ativan) 0 mg PO ASDIRECTED [facility]; Protocol Lorazepam (Ativan) 0 mg IV ASDIRECTED [facility]; Protocol Last Admin: 11/23/19 02:35 Dose: 1 mg Lorazepam (Ativan) Confirm Administered Dose 2 mg .ROUTE .STK-MED ONE Stop: 11/22/19 20:00 Last Admin: 11/22/19 20:05 Dose: Not Given Non-Formulary Medication (Melatonin [Melatonin]) 5 mg PO BEDTIME [facility] Pantoprazole Sodium (Protonix) 40 mg PO DAILY [facility] Last Admin: 11/22/19 21:29 Dose: 40 mg Potassium Chloride (Klor-Con M20) 40 meq PO ONETIME ONE Stop: 11/23/19 10:16 Last Admin: 11/23/19 12:27 Dose: 40 meq Sodium Chloride (Saline Flush) 10 ml FLUSH ONETIME ONE Stop: 11/23/19 11:04 Last Admin: 11/23/19 11:26 Dose: 10 ml Thiamine HCl (Vitamin B-1) 100 mg PO ONETIME ONE Stop: 11/22/19 17:49 Last Admin: 11/22/19 18:23 Dose: 100 mg - Exam Quality Assessment: No: Supplemental Oxygen General: Alert, Oriented, Cooperative, No Acute Distress Lungs: Normal Respiratory Effort GI/Abdominal Exam: Soft, No Distention Extremities: Pedal Edema (left foot ) Skin: Ecchymosis (left foot ) Psy/Mental Status: Alert, Normal Affect Sepsis Event Note - Evaluation Sepsis Screening Result: No Definite Risk - Focused Exam Vital Signs: Vital Signs Temp Pulse Resp BP BP Pulse Ox 11/26/19 09:33 36.4 C 86 18 120/52 L 11/26/19 08:36 120/52 L 11/26/19 08:34 120/52 L 11/26/19 06:00 35.7 C L 16 126/49 L 90 L 11/25/19 23:18 35.7 C L 16 145/66 H 95 Date Exam was Performed: 11/26/19 Time Exam was Performed: 13:37 - Problem List Review Problem List Initiated/Reviewed/Updated: Yes - Plan Plan:: ASSESSMENT AND PLAN ALCOHOL ABUSE-unable to control his alcohol use and requires a more structured living situation where he is kept off of alcohol. Currently on State commitment because of his ongoing alcohol use. Recently discharged from treatment facility and started drinking almost immediately. 72-hour hold placed today because of strong concern for risk of harm to self. No evidence for ongoing alcohol withdrawal and he is medically stable. -Saline lock IV HEMOPTYSIS-he reports a history of asbestos exposure as well as a history of mesothelioma. Chest x-ray clear. CT scan showed some lower lung pulmonary fibrosis but no obvious source for hemoptysis. Could be related to posterior nosebleeds. No active bleeding at this time. -No further work-up needed Third metatarsal [id number] revealed a fracture at the base of the third metatarsal. Unknown injury per the patient report. Orthopedic input appreciated. -Wrap left foot with Sherif wrap to help with swelling -Weightbearing as tolerated -CAM when he is ambulating -Encourage use of walker RECURRENT FALLS-secondary to ongoing alcohol abuse. None during the hospital stay. SEIZURES-no issues during the hospital stay. -Continue outpatient medical therapy for seizures MAINTENANCE ISSUES -DVT prophylaxis; Lovenox 40 mg subcu daily -GI prophylaxis; continue outpatient PPI therapy -Chavarria catheter; not indicated -Nutrition; 2 g sodium diet DISPOSITION-anticipate discharge to treatment facility on commitment. He is medically stable for discharge at this time but discharge plan is still in process. Anthony Sotelo MD
[2019-11-26] MEDS: Melatonin 3 MG Tab PO SCH (21:50)
[2019-11-26] MEDS: traZODone 50 MG Tab PO SCH (21:50)
[2019-11-26] MEDS: Enoxaparin 40 MG/0.4 ML Syringe SUBCUT SCH (21:53)
[2019-11-27] MEDS: Acetaminophen 325 MG Tab PO PRN ×2 (04:39→17:33)
[2019-11-27] MEDS: Pantoprazole 40 MG Tab.CR PO SCH (07:42)
[2019-11-27] MEDS: PHENobarbital 32.4 MG Tab PO SCH ×2 (08:26→21:22)
[2019-11-27] MEDS: Gabapentin 400 MG Cap PO SCH ×3 (08:27→21:23)
[2019-11-27] MEDS: Tamsulosin 0.4 MG Cap.ER PO SCH (08:27)
[2019-11-27] MEDS: Docusate Sodium 100 MG Cap PO SCH (08:27)
[2019-11-27] MEDS: Folic Acid 1 MG Tab PO SCH (08:28)
[2019-11-27] MEDS: Thiamine 100 MG Tab PO SCH (08:28)
[2019-11-27] MEDS: cloNIDine 0.1 MG Tab PO SCH ×2 (08:28→21:23)
[2019-11-27] MEDS: Losartan 25 MG Tab PO SCH (08:29)
[2019-11-27] MEDS: Phenytoin 100 MG Cap.ER PO SCH ×2 (08:30→21:22)
[2019-11-27] MEDS: Citalopram 20 MG Tab PO SCH (08:30)
[2019-11-27] MEDS: Multivitamins with Iron/Calcium/Folic Acid/Minerals Tab PO SCH (08:30)
--- NOTE | 2019-11-27 14:49 | PCM.PN ---
- General Info Date of Service: 11/27/19 Subjective Update: No acute events overnight. Patient has been up and walking around with less of a limp today. He seems to be in good spirits. He did not ask for pain medications today. Early this afternoon the patient left the unit and was spotted by nursing staff outside the hospital on the sidewalk smoking a cigarette. When he returned to the unit he was reminded that he was not allowed to go out and smoke and this had been discussed earlier in the week. He has not been using his Sherif wrap or using his cam boot when he has been up walking around. - Patient Data Vitals - Most Recent: Last Vital Signs Temp 35.8 C L 11/27/19 07:39 Pulse 86 11/27/19 07:39 Resp 18 11/27/19 07:39 BP 155/65 H 11/27/19 08:29 Pulse Ox 91 L 11/27/19 04:51 Weight - Most Recent: 60.78 kg I&O - Last 24 Hours: Intake & Output 11/26/19 11/27/19 11/27/19 22:59 06:59 14:59 Intake Total 2039 Balance 2039 Med Orders - Current: Current Medications Acetaminophen (Tylenol) 650 mg PO Q4H PRN PRN Reason: Pain (Mild 1-3)/fever Last Admin: 11/27/19 04:39 Dose: 650 mg Albuterol (Ventolin Hfa) 0 gm INH Q6H PRN PRN Reason: Dyspnea Citalopram Hydrobromide (Celexa) 40 mg PO DAILY [facility] Last Admin: 11/27/19 08:30 Dose: 40 mg Clonidine HCl (Catapres) 0.1 mg PO BID [facility] Last Admin: 11/27/19 08:28 Dose: 0.1 mg Docusate Sodium (Colace) 100 mg PO DAILY [facility] Last Admin: 11/27/19 08:27 Dose: 100 mg Enoxaparin Sodium (Lovenox) 40 mg SUBCUT BEDTIME [facility] Last Admin: 11/26/19 21:53 Dose: 40 mg Folic Acid (Folic Acid) 1 mg PO DAILY [facility] Last Admin: 11/27/19 08:28 Dose: 1 mg Gabapentin (Neurontin) 400 mg PO TID [facility] Last Admin: 11/27/19 08:27 Dose: 400 mg Ibuprofen (Motrin) 600 mg PO Q8H PRN PRN Reason: Pain (moderate 4-6) Last Admin: 11/26/19 21:50 Dose: 600 mg Losartan Potassium (Cozaar) 25 mg PO DAILY [facility] Last Admin: 11/27/19 08:29 Dose: 25 mg Melatonin (Melatonin) 6 mg PO BEDTIME [facility] Last Admin: 11/26/19 21:50 Dose: 6 mg Multivitamins/Minerals (Thera M Plus) 1 tab PO DAILY [facility] Last Admin: 11/27/19 08:30 Dose: 1 tab Ondansetron HCl (Zofran) 4 mg IV Q4H PRN PRN Reason: Nausea/Vomiting Pantoprazole Sodium (Protonix) 40 mg PO DAILY@0730 [facility] Last Admin: 11/27/19 07:42 Dose: 40 mg Phenobarbital (Phenobarbital) 97.2 mg PO BID [facility] Last Admin: 11/27/19 08:26 Dose: 97.2 mg Phenytoin Sodium (Phenytoin) 200 mg PO BID [facility] Last Admin: 11/27/19 08:30 Dose: 200 mg Polyethylene Glycol (Miralax) 17 gm PO DAILY PRN PRN Reason: Constipation Sodium Chloride (Saline Flush) 10 ml FLUSH ASDIRECTED PRN PRN Reason: Keep Vein Open Tamsulosin HCl (Flomax) 0.4 mg PO DAILY [facility] Last Admin: 11/27/19 08:27 Dose: 0.4 mg Thiamine HCl (Vitamin B-1) 100 mg PO DAILY [facility] Last Admin: 11/27/19 08:28 Dose: 100 mg Trazodone HCl (Trazodone) 150 mg PO BEDTIME [facility] Last Admin: 11/26/19 21:50 Dose: 150 mg Discontinued Medications Hydrocodone Bitart/Acetaminophen ([place] 325-5 Mg) 1 tab PO ONETIME ONE Stop: 11/22/19 16:59 Last Admin: 11/22/19 17:03 Dose: 1 tab Sodium Chloride (Normal Saline) 1,000 mls @ 150 mls/hr IV ASDIRECTED [facility] Last Admin: 11/22/19 18:23 Dose: 150 mls/hr Sodium Chloride (Normal Saline) 1,000 mls @ 125 mls/hr IV ASDIRECTED [facility] Last Admin: 11/23/19 03:32 Dose: 125 mls/hr Sodium Chloride (Normal Saline) 75 mls @ 3 mls/sec IV ASDIRECTED [facility] Stop: 11/23/19 14:00 Last Admin: 11/23/19 11:26 Dose: 3 mls/sec Iopamidol (Isovue-300 (61%)) 100 ml IV . DIRECTED [facility] Stop: 11/23/19 14:00 Last Admin: 11/23/19 11:26 Dose: 100 ml Lorazepam (Ativan) 0 mg PO ASDIRECTED [facility]; Protocol Lorazepam (Ativan) 0 mg IV ASDIRECTED [facility]; Protocol Last Admin: 11/23/19 02:35 Dose: 1 mg Lorazepam (Ativan) Confirm Administered Dose 2 mg .ROUTE .STK-MED ONE Stop: 11/22/19 20:00 Last Admin: 11/22/19 20:05 Dose: Not Given Non-Formulary Medication (Melatonin [Melatonin]) 5 mg PO BEDTIME [facility] Pantoprazole Sodium (Protonix) 40 mg PO DAILY [facility] Last Admin: 11/22/19 21:29 Dose: 40 mg Potassium Chloride (Klor-Con M20) 40 meq PO ONETIME ONE Stop: 11/23/19 10:16 Last Admin: 11/23/19 12:27 Dose: 40 meq Sodium Chloride (Saline Flush) 10 ml FLUSH ONETIME ONE Stop: 11/23/19 11:04 Last Admin: 11/23/19 11:26 Dose: 10 ml Thiamine HCl (Vitamin B-1) 100 mg PO ONETIME ONE Stop: 11/22/19 17:49 Last Admin: 11/22/19 18:23 Dose: 100 mg - Exam Quality Assessment: No: Supplemental Oxygen General: Alert, Oriented, Cooperative, No Acute Distress Lungs: Normal Respiratory Effort GI/Abdominal Exam: Soft, No Distention Extremities: Pedal Edema (Left foot) Skin: Ecchymosis (Left foot) Psy/Mental Status: Alert, Normal Affect Sepsis Event Note - Evaluation Sepsis Screening Result: No Definite Risk - Focused Exam Vital Signs: Vital Signs Temp Pulse Resp BP BP Pulse Ox 11/27/19 08:29 155/65 H 11/27/19 08:28 155/65 H 11/27/19 07:39 35.8 C L 86 18 155/65 H 11/27/19 04:51 36.2 C 86 16 126/68 91 L Date Exam was Performed: 11/27/19 Time Exam was Performed: 14:46 - Problem List Review Problem List Initiated/Reviewed/Updated: Yes - Plan Plan:: ASSESSMENT AND PLAN ALCOHOL ABUSE-currently on a court hold and awaiting placement after violating his order of commitment. -Follow-up court recommendations and anticipate transfer to inpatient treatment -He is not to leave the unit unsupervised for any reason and he is aware of this HEMOPTYSIS-he reports a history of asbestos exposure as well as a history of mesothelioma. Chest x-ray clear. CT scan showed some lower lung pulmonary fibrosis but no obvious source for hemoptysis. Could be related to posterior nosebleeds. No active bleeding at this time. -No further work-up needed Third metatarsal [id number] revealed a fracture at the base of the third metatarsal. Unknown injury per the patient report. Patient not compliant with recommendations for Sherif wrap and cam boot. -Wrap left foot with Sherif wrap to help with swelling -Weightbearing as tolerated -CAM when he is ambulating -Encourage use of walker RECURRENT FALLS-secondary to ongoing alcohol abuse. None during the hospital stay. SEIZURES-no issues during the hospital stay. -Continue outpatient medical therapy for seizures MAINTENANCE ISSUES -DVT prophylaxis; Lovenox 40 mg subcu daily -GI prophylaxis; continue outpatient PPI therapy -Chavarria catheter; not indicated -Nutrition; 2 g sodium diet DISPOSITION-anticipate discharge to treatment facility on commitment. He is medically stable for discharge at this time but discharge plan is still in process. Anthony Sotelo MD
[2019-11-27] MEDS: Enoxaparin 40 MG/0.4 ML Syringe SUBCUT SCH (21:21)
[2019-11-27] MEDS: Melatonin 3 MG Tab PO SCH (21:23)
[2019-11-27] MEDS: traZODone 50 MG Tab PO SCH (21:23)
[2019-11-27] MEDS: Ibuprofen 600 MG Tab PO PRN (21:27)
[2019-11-28] MEDS: Acetaminophen 325 MG Tab PO PRN ×2 (07:20→14:17)
[2019-11-28] MEDS: Pantoprazole 40 MG Tab.CR PO SCH (07:22)
[2019-11-28] MEDS: PHENobarbital 32.4 MG Tab PO SCH ×2 (08:18→21:13)
[2019-11-28] MEDS: Phenytoin 100 MG Cap.ER PO SCH ×2 (08:18→21:13)
[2019-11-28] MEDS: Citalopram 20 MG Tab PO SCH (08:19)
[2019-11-28] MEDS: Gabapentin 400 MG Cap PO SCH ×3 (08:19→21:13)
[2019-11-28] MEDS: Tamsulosin 0.4 MG Cap.ER PO SCH (08:19)
[2019-11-28] MEDS: Losartan 25 MG Tab PO SCH (08:19)
[2019-11-28] MEDS: Docusate Sodium 100 MG Cap PO SCH (08:20)
[2019-11-28] MEDS: cloNIDine 0.1 MG Tab PO SCH ×2 (08:20→21:13)
[2019-11-28] MEDS: Thiamine 100 MG Tab PO SCH (08:21)
[2019-11-28] MEDS: Folic Acid 1 MG Tab PO SCH (08:21)
[2019-11-28] MEDS: Multivitamins with Iron/Calcium/Folic Acid/Minerals Tab PO SCH (08:21)
[2019-11-28] MEDS: Ibuprofen 600 MG Tab PO PRN (08:26)
--- NOTE | 2019-11-28 09:49 | PCM.PN ---
- General Info Date of Service: 11/28/19 Subjective Update: No acute events overnight. Back and foot pain are stable. He is working with physical therapy when they are available. Functional Status: Reports: Pain Controlled - Patient Data Vitals - Most Recent: Last Vital Signs Temp 35.3 C L 11/28/19 07:27 Pulse 72 11/28/19 07:27 Resp 18 11/28/19 07:27 BP 179/68 H 11/28/19 08:20 Pulse Ox 97 11/27/19 21:00 Weight - Most Recent: 60.78 kg Med Orders - Current: Current Medications Acetaminophen (Tylenol) 650 mg PO Q4H PRN PRN Reason: Pain (Mild 1-3)/fever Last Admin: 11/28/19 07:20 Dose: 650 mg Albuterol (Ventolin Hfa) 0 gm INH Q6H PRN PRN Reason: Dyspnea Citalopram Hydrobromide (Celexa) 40 mg PO DAILY [facility] Last Admin: 11/28/19 08:19 Dose: 40 mg Clonidine HCl (Catapres) 0.1 mg PO BID [facility] Last Admin: 11/28/19 08:20 Dose: 0.1 mg Docusate Sodium (Colace) 100 mg PO DAILY [facility] Last Admin: 11/28/19 08:20 Dose: 100 mg Enoxaparin Sodium (Lovenox) 40 mg SUBCUT BEDTIME [facility] Last Admin: 11/27/19 21:21 Dose: 40 mg Folic Acid (Folic Acid) 1 mg PO DAILY [facility] Last Admin: 11/28/19 08:21 Dose: 1 mg Gabapentin (Neurontin) 400 mg PO TID [facility] Last Admin: 11/28/19 08:19 Dose: 400 mg Ibuprofen (Motrin) 600 mg PO Q8H PRN PRN Reason: Pain (moderate 4-6) Last Admin: 11/28/19 08:26 Dose: 600 mg Losartan Potassium (Cozaar) 25 mg PO DAILY [facility] Last Admin: 11/28/19 08:19 Dose: 25 mg Melatonin (Melatonin) 6 mg PO BEDTIME [facility] Last Admin: 11/27/19 21:23 Dose: 6 mg Multivitamins/Minerals (Thera M Plus) 1 tab PO DAILY [facility] Last Admin: 11/28/19 08:21 Dose: 1 tab Ondansetron HCl (Zofran) 4 mg IV Q4H PRN PRN Reason: Nausea/Vomiting Pantoprazole Sodium (Protonix) 40 mg PO DAILY@0730 [facility] Last Admin: 11/28/19 07:22 Dose: 40 mg Phenobarbital (Phenobarbital) 97.2 mg PO BID [facility] Last Admin: 11/28/19 08:18 Dose: 97.2 mg Phenytoin Sodium (Phenytoin) 200 mg PO BID [facility] Last Admin: 11/28/19 08:18 Dose: 200 mg Polyethylene Glycol (Miralax) 17 gm PO DAILY PRN PRN Reason: Constipation Sodium Chloride (Saline Flush) 10 ml FLUSH ASDIRECTED PRN PRN Reason: Keep Vein Open Tamsulosin HCl (Flomax) 0.4 mg PO DAILY [facility] Last Admin: 11/28/19 08:19 Dose: 0.4 mg Thiamine HCl (Vitamin B-1) 100 mg PO DAILY [facility] Last Admin: 11/28/19 08:21 Dose: 100 mg Trazodone HCl (Trazodone) 150 mg PO BEDTIME [facility] Last Admin: 11/27/19 21:23 Dose: 150 mg Discontinued Medications Hydrocodone Bitart/Acetaminophen ([place] 325-5 Mg) 1 tab PO ONETIME ONE Stop: 11/22/19 16:59 Last Admin: 11/22/19 17:03 Dose: 1 tab Sodium Chloride (Normal Saline) 1,000 mls @ 150 mls/hr IV ASDIRECTED [facility] Last Admin: 11/22/19 18:23 Dose: 150 mls/hr Sodium Chloride (Normal Saline) 1,000 mls @ 125 mls/hr IV ASDIRECTED [facility] Last Admin: 11/23/19 03:32 Dose: 125 mls/hr Sodium Chloride (Normal Saline) 75 mls @ 3 mls/sec IV ASDIRECTED [facility] Stop: 11/23/19 14:00 Last Admin: 11/23/19 11:26 Dose: 3 mls/sec Iopamidol (Isovue-300 (61%)) 100 ml IV . DIRECTED [facility] Stop: 11/23/19 14:00 Last Admin: 11/23/19 11:26 Dose: 100 ml Lorazepam (Ativan) 0 mg PO ASDIRECTED [facility]; Protocol Lorazepam (Ativan) 0 mg IV ASDIRECTED [facility]; Protocol Last Admin: 06/01/20 02:35 Dose: 1 mg Lorazepam (Ativan) Confirm Administered Dose 2 mg .ROUTE .STK-MED ONE Stop: 11/22/19 20:00 Last Admin: 11/22/19 20:05 Dose: Not Given Non-Formulary Medication (Melatonin [Melatonin]) 5 mg PO BEDTIME [facility] Pantoprazole Sodium (Protonix) 40 mg PO DAILY [facility] Last Admin: 11/22/19 21:29 Dose: 40 mg Potassium Chloride (Klor-Con M20) 40 meq PO ONETIME ONE Stop: 11/23/19 10:16 Last Admin: 11/23/19 12:27 Dose: 40 meq Sodium Chloride (Saline Flush) 10 ml FLUSH ONETIME ONE Stop: 11/23/19 11:04 Last Admin: 11/23/19 11:26 Dose: 10 ml Thiamine HCl (Vitamin B-1) 100 mg PO ONETIME ONE Stop: 11/22/19 17:49 Last Admin: 11/22/19 18:23 Dose: 100 mg - Exam Quality Assessment: No: Supplemental Oxygen General: Alert, Oriented, Cooperative, No Acute Distress Lungs: Normal Respiratory Effort GI/Abdominal Exam: No Distention Extremities: Pedal Edema (left foot ) Psy/Mental Status: Alert, Normal Affect Sepsis Event Note - Evaluation Sepsis Screening Result: No Definite Risk - Focused Exam Vital Signs: Vital Signs Temp Pulse Resp BP BP 11/28/19 08:20 179/68 H 11/28/19 08:19 179/68 H 11/28/19 07:27 35.3 C L 72 18 179/68 H Date Exam was Performed: 11/28/19 Time Exam was Performed: 11:25 - Problem List Review Problem List Initiated/Reviewed/Updated: Yes - Plan Plan:: ASSESSMENT AND PLAN ALCOHOL ABUSE-currently on a court hold and awaiting placement after violating his order of commitment. -Follow-up court recommendations and anticipate transfer to inpatient treatment -He is not to leave the unit unsupervised for any reason and he is aware of this [id number] negative. No recurrence. Probably related to posterior nosebleeds. -No further work-up needed Third metatarsal [id number] revealed a fracture at the base of the third metatarsal. Patient not compliant with recommendations for Sherif wrap and cam boot. -Wrap left foot with Sherif wrap to help with swelling -Weightbearing as tolerated -CAM boot when he is ambulating -Encourage use of walker RECURRENT FALLS-secondary to ongoing alcohol abuse. None during the hospital stay. SEIZURES-no issues during the hospital stay. -Continue outpatient medical therapy for seizures MAINTENANCE ISSUES -DVT prophylaxis; Lovenox 40 mg subcu daily -GI prophylaxis; continue outpatient PPI therapy -Chavarria catheter; not indicated -Nutrition; 2 g sodium diet DISPOSITION-anticipate discharge to treatment facility on commitment. He is medically stable for discharge at this time but discharge plan is still in process. Anthony Sotelo MD
[2019-11-28] MEDS: Enoxaparin 40 MG/0.4 ML Syringe SUBCUT SCH (21:12)
[2019-11-28] MEDS: traZODone 50 MG Tab PO SCH (21:13)
[2019-11-28] MEDS: Melatonin 3 MG Tab PO SCH (21:13)
[2019-11-29] MEDS: Ibuprofen 600 MG Tab PO PRN ×2 (03:11→14:34)
[2019-11-29] MEDS: Acetaminophen 325 MG Tab PO PRN ×2 (08:19→14:33)
[2019-11-29] MEDS: PHENobarbital 32.4 MG Tab PO SCH ×2 (08:20→20:08)
[2019-11-29] MEDS: Tamsulosin 0.4 MG Cap.ER PO SCH (08:20)
[2019-11-29] MEDS: Pantoprazole 40 MG Tab.CR PO SCH (08:20)
[2019-11-29] MEDS: Multivitamins with Iron/Calcium/Folic Acid/Minerals Tab PO SCH (08:21)
[2019-11-29] MEDS: cloNIDine 0.1 MG Tab PO SCH ×2 (08:21→20:05)
[2019-11-29] MEDS: Citalopram 20 MG Tab PO SCH (08:21)
[2019-11-29] MEDS: Thiamine 100 MG Tab PO SCH (08:21)
[2019-11-29] MEDS: Folic Acid 1 MG Tab PO SCH (08:24)
[2019-11-29] MEDS: Docusate Sodium 100 MG Cap PO SCH (08:24)
[2019-11-29] MEDS: Losartan 25 MG Tab PO SCH ×2 (08:25→10:19)
[2019-11-29] MEDS: Phenytoin 100 MG Cap.ER PO SCH ×2 (08:25→20:05)
[2019-11-29] MEDS: Gabapentin 400 MG Cap PO SCH ×3 (08:25→20:04)
[2019-11-29] MEDS ORDERED: Losartan 50 MG Tab PO ONE (10:00)
--- NOTE | 2019-11-29 10:37 | PCM.PN ---
- General Info Date of Service: 11/29/19 Subjective Update: No acute events overnight. No significant behavior issues. Patient has been compliant with staying in his room. He does occasionally use the Sherif wrap and cam boot but for the most part does not when he is up and around in his room. Blood pressure has been rising over the past few days. Chronic back pain and left foot pain are stable. Functional Status: Reports: Pain Controlled, Tolerating Diet - Review of Systems General: Denies: Fever - Patient Data Vitals - Most Recent: Last Vital Signs Temp 35.8 C L 11/29/19 09:00 Pulse 66 11/29/19 09:00 Resp 18 11/29/19 09:00 BP 179/65 H 11/29/19 10:20 Pulse Ox 96 11/28/19 21:00 Weight - Most Recent: 60.78 kg I&O - Last 24 Hours: Intake & Output 11/28/19 11/29/19 11/29/19 22:59 06:59 14:59 Intake Total 1000 Balance 1000 Med Orders - Current: Current Medications Acetaminophen (Tylenol) 650 mg PO Q4H PRN PRN Reason: Pain (Mild 1-3)/fever Last Admin: 11/29/19 08:19 Dose: 650 mg Albuterol (Ventolin Hfa) 0 gm INH Q6H PRN PRN Reason: Dyspnea Citalopram Hydrobromide (Celexa) 40 mg PO DAILY [facility] Last Admin: 11/29/19 08:21 Dose: 40 mg Clonidine HCl (Catapres) 0.1 mg PO BID [facility] Last Admin: 11/29/19 08:21 Dose: 0.1 mg Docusate Sodium (Colace) 100 mg PO DAILY [facility] Last Admin: 11/29/19 08:24 Dose: 100 mg Enoxaparin Sodium (Lovenox) 40 mg SUBCUT BEDTIME [facility] Last Admin: 11/28/19 21:12 Dose: 40 mg Folic Acid (Folic Acid) 1 mg PO DAILY [facility] Last Admin: 11/29/19 08:24 Dose: 1 mg Gabapentin (Neurontin) 400 mg PO TID [facility] Last Admin: 11/29/19 08:25 Dose: 400 mg Ibuprofen (Motrin) 600 mg PO Q8H PRN PRN Reason: Pain (moderate 4-6) Last Admin: 11/29/19 03:11 Dose: 600 mg Losartan Potassium (Cozaar) 50 mg PO DAILY [facility] Melatonin (Melatonin) 6 mg PO BEDTIME [facility] Last Admin: 11/28/19 21:13 Dose: 6 mg Multivitamins/Minerals (Thera M Plus) 1 tab PO DAILY [facility] Last Admin: 11/29/19 08:21 Dose: 1 tab Ondansetron HCl (Zofran) 4 mg IV Q4H PRN PRN Reason: Nausea/Vomiting Pantoprazole Sodium (Protonix) 40 mg PO DAILY@0730 [facility] Last Admin: 11/29/19 08:20 Dose: 40 mg Phenobarbital (Phenobarbital) 97.2 mg PO BID [facility] Last Admin: 11/29/19 08:20 Dose: 97.2 mg Phenytoin Sodium (Phenytoin) 200 mg PO BID [facility] Last Admin: 11/29/19 08:25 Dose: 200 mg Polyethylene Glycol (Miralax) 17 gm PO DAILY PRN PRN Reason: Constipation Sodium Chloride (Saline Flush) 10 ml FLUSH ASDIRECTED PRN PRN Reason: Keep Vein Open Tamsulosin HCl (Flomax) 0.4 mg PO DAILY [facility] Last Admin: 11/29/19 08:20 Dose: 0.4 mg Thiamine HCl (Vitamin B-1) 100 mg PO DAILY [facility] Last Admin: 11/29/19 08:21 Dose: 100 mg Trazodone HCl (Trazodone) 150 mg PO BEDTIME [facility] Last Admin: 11/28/19 21:13 Dose: 150 mg Discontinued Medications Hydrocodone Bitart/Acetaminophen ([place] 325-5 Mg) 1 tab PO ONETIME ONE Stop: 11/22/19 16:59 Last Admin: 11/22/19 17:03 Dose: 1 tab Sodium Chloride (Normal Saline) 1,000 mls @ 150 mls/hr IV ASDIRECTED [facility] Last Admin: 11/22/19 18:23 Dose: 150 mls/hr Sodium Chloride (Normal Saline) 1,000 mls @ 125 mls/hr IV ASDIRECTED [facility] Last Admin: 11/23/19 03:32 Dose: 125 mls/hr Sodium Chloride (Normal Saline) 75 mls @ 3 mls/sec IV ASDIRECTED [facility] Stop: 11/23/19 14:00 Last Admin: 11/23/19 11:26 Dose: 3 mls/sec Iopamidol (Isovue-300 (61%)) 100 ml IV . DIRECTED [facility] Stop: 11/23/19 14:00 Last Admin: 11/23/19 11:26 Dose: 100 ml Lorazepam (Ativan) 0 mg PO ASDIRECTED [facility]; Protocol Lorazepam (Ativan) 0 mg IV ASDIRECTED [facility]; Protocol Last Admin: 11/23/19 02:35 Dose: 1 mg Lorazepam (Ativan) Confirm Administered Dose 2 mg .ROUTE .STK-MED ONE Stop: 11/22/19 20:00 Last Admin: 11/22/19 20:05 Dose: Not Given Losartan Potassium (Cozaar) 25 mg PO DAILY [facility] Last Admin: 11/29/19 10:19 Dose: 25 mg Losartan Potassium (Cozaar) 25 mg PO ONETIME ONE Stop: 11/29/19 10:01 Last Admin: 11/29/19 10:20 Dose: 25 mg Non-Formulary Medication (Melatonin [Melatonin]) 5 mg PO BEDTIME [facility] Pantoprazole Sodium (Protonix) 40 mg PO DAILY [facility] Last Admin: 11/22/19 21:29 Dose: 40 mg Potassium Chloride (Klor-Con M20) 40 meq PO ONETIME ONE Stop: 11/23/19 10:16 Last Admin: 11/23/19 12:27 Dose: 40 meq Sodium Chloride (Saline Flush) 10 ml FLUSH ONETIME ONE Stop: 11/23/19 11:04 Last Admin: 11/23/19 11:26 Dose: 10 ml Thiamine HCl (Vitamin B-1) 100 mg PO ONETIME ONE Stop: 11/22/19 17:49 Last Admin: 11/22/19 18:23 Dose: 100 mg - Exam Quality Assessment: No: Supplemental Oxygen General: Alert, Oriented, Cooperative, No Acute Distress Lungs: Normal Respiratory Effort GI/Abdominal Exam: Soft, No Distention Extremities: Pedal Edema (left foot ) Skin: Ecchymosis (left foot ) Psy/Mental Status: Alert, Normal Affect Sepsis Event Note - Evaluation Sepsis Screening Result: No Definite Risk - Focused Exam Vital Signs: Vital Signs Temp Pulse Resp BP BP 11/29/19 10:20 179/65 H 11/29/19 10:19 179/69 H 11/29/19 09:00 35.8 C L 66 18 179/65 H 11/29/19 08:25 179/65 H 11/29/19 08:21 179/65 H Date Exam was Performed: 11/29/19 Time Exam was Performed: 11:31 - Problem List Review Problem List Initiated/Reviewed/Updated: Yes - My Orders Last 24 Hours: My Active Orders 11/30/19 05:00 BASIC METABOLIC PANEL,BMP [CHEM] Timed 11/30/19 09:00 Losartan [Cozaar] 50 mg PO DAILY - Plan Plan:: ASSESSMENT AND PLAN ALCOHOL ABUSE-currently on a court hold and awaiting placement after violating his order of commitment. Patient went outside to have a cigarette 2 days ago despite orders to not go outside to smoke. He has been confined to his room since that time as a consequence of sneaking out. -Follow-up court recommendations and anticipate transfer to inpatient treatment -He is not to leave the unit unsupervised for any reason and he is aware of this [id number] negative. No recurrence. Probably related to posterior nosebleeds. -No further work-up needed Third metatarsal [id number] revealed a fracture at the base of the third metatarsal. Patient minimally compliant with recommendations for Sherif wrap and cam boot. -Wrap left foot with Sherif wrap to help with swelling -Weightbearing as tolerated -CAM boot when he is ambulating -Encourage use of walker Essential hypertension-blood pressure has been slowly rising during the hospital stay. -Continue clonidine -Increase losartan RECURRENT FALLS-secondary to ongoing alcohol abuse. None during the hospital stay. SEIZURES-no issues during the hospital stay. -Continue outpatient medical therapy for seizures MAINTENANCE ISSUES -DVT prophylaxis; Lovenox 40 mg subcu daily -GI prophylaxis; continue outpatient PPI therapy -Chavarria catheter; not indicated -Nutrition; 2 g sodium diet DISPOSITION-anticipate discharge to treatment facility on commitment. He is medically stable for discharge at this time but discharge plan is still in process. Anthony Sotelo MD
[2019-11-29] MEDS: traZODone 50 MG Tab PO SCH (20:04)
[2019-11-29] MEDS: Melatonin 3 MG Tab PO SCH (20:05)
[2019-11-29] MEDS: Enoxaparin 40 MG/0.4 ML Syringe SUBCUT SCH (20:05)
[2019-11-30] MEDS: Ibuprofen 600 MG Tab PO PRN ×2 (03:07→16:51)
[2019-11-30] MEDS: Acetaminophen 325 MG Tab PO PRN ×3 (03:08→16:51)
[2019-11-30] MEDS: cloNIDine 0.1 MG Tab PO SCH ×2 (08:12→20:53)
[2019-11-30] MEDS: Thiamine 100 MG Tab PO SCH (08:12)
[2019-11-30] MEDS: Losartan 50 MG Tab PO SCH (08:12)
[2019-11-30] MEDS: PHENobarbital 32.4 MG Tab PO SCH ×2 (08:14→20:55)
[2019-11-30] MEDS: Pantoprazole 40 MG Tab.CR PO SCH (08:14)
[2019-11-30] MEDS: Citalopram 20 MG Tab PO SCH (08:14)
[2019-11-30] MEDS: Docusate Sodium 100 MG Cap PO SCH (08:16)
[2019-11-30] MEDS: Folic Acid 1 MG Tab PO SCH (08:17)
[2019-11-30] MEDS: Tamsulosin 0.4 MG Cap.ER PO SCH (08:17)
[2019-11-30] MEDS: Gabapentin 400 MG Cap PO SCH ×3 (08:17→20:54)
[2019-11-30] MEDS: Phenytoin 100 MG Cap.ER PO SCH ×2 (08:18→20:54)
[2019-11-30] MEDS: Multivitamins with Iron/Calcium/Folic Acid/Minerals Tab PO SCH (08:18)
--- NOTE | 2019-11-30 10:29 | PCM.PN ---
- General Info Date of Service: 11/30/19 Subjective Update: Mr. Degroot remains on state-mandated commitment and is awaiting placement in an appropriate facility. Functional Status: Reports: Tolerating Diet, Ambulating, Urinating - Review of Systems General: Reports: No Symptoms, Fever Pulmonary: Reports: No Symptoms Cardiovascular: Reports: No Symptoms Gastrointestinal: Reports: No Symptoms - Patient Data Vitals - Most Recent: Last Vital Signs Temp 95.7 F L 11/30/19 08:06 Pulse 76 11/30/19 08:06 Resp 16 11/30/19 08:06 BP 129/61 11/30/19 08:12 Pulse Ox 95 11/30/19 08:06 Weight - Most Recent: 133 lb 15.951 oz I&O - Last 24 Hours: Intake & Output 11/29/19 11/30/19 11/30/19 22:59 06:59 14:59 Intake Total 500 240 Balance 500 240 Lab Results Last 24 Hours: Laboratory Results - last 24 hr 11/30/19 Range/Units 04:20 Sodium 144 (140-148) mmol/L Potassium 4.5 (3.6-5.2) mmol/L Chloride 105 (100-108) mmol/L Carbon Dioxide 33 H (21-32) mmol/L Anion Gap 10.5 (5.0-14.0) mmol/L BUN 11 (7-18) mg/dL Creatinine 0.7 L (0.8-1.3) mg/dL Est Cr Clr Drug Dosing 85.62 mL/min Estimated GFR (MDRD) > 60 (>60) Glucose 129 H (74-106) mg/dL Calcium 8.3 L (8.5-10.1) mg/dL Med Orders - Current: Current Medications Acetaminophen (Tylenol) 650 mg PO Q4H PRN PRN Reason: Pain (Mild 1-3)/fever Last Admin: 11/30/19 08:21 Dose: 650 mg Albuterol (Ventolin Hfa) 0 gm INH Q6H PRN PRN Reason: Dyspnea Citalopram Hydrobromide (Celexa) 40 mg PO DAILY [facility] Last Admin: 11/30/19 08:14 Dose: 40 mg Clonidine HCl (Catapres) 0.1 mg PO BID [facility] Last Admin: 11/30/19 08:12 Dose: 0.1 mg Docusate Sodium (Colace) 100 mg PO DAILY [facility] Last Admin: 11/30/19 08:16 Dose: 100 mg Enoxaparin Sodium (Lovenox) 40 mg SUBCUT BEDTIME [facility] Last Admin: 11/29/19 20:05 Dose: 40 mg Folic Acid (Folic Acid) 1 mg PO DAILY [facility] Last Admin: 11/30/19 08:17 Dose: 1 mg Gabapentin (Neurontin) 400 mg PO TID [facility] Last Admin: 11/30/19 08:17 Dose: 400 mg Ibuprofen (Motrin) 600 mg PO Q8H PRN PRN Reason: Pain (moderate 4-6) Last Admin: 11/30/19 03:07 Dose: 600 mg Losartan Potassium (Cozaar) 50 mg PO DAILY [facility] Last Admin: 11/30/19 08:12 Dose: 50 mg Melatonin (Melatonin) 6 mg PO BEDTIME [facility] Last Admin: 11/29/19 20:05 Dose: 6 mg Multivitamins/Minerals (Thera M Plus) 1 tab PO DAILY [facility] Last Admin: 11/30/19 08:18 Dose: 1 tab Ondansetron HCl (Zofran) 4 mg IV Q4H PRN PRN Reason: Nausea/Vomiting Pantoprazole Sodium (Protonix) 40 mg PO DAILY@0730 [facility] Last Admin: 11/30/19 08:14 Dose: 40 mg Phenobarbital (Phenobarbital) 97.2 mg PO BID [facility] Last Admin: 11/30/19 08:14 Dose: 97.2 mg Phenytoin Sodium (Phenytoin) 200 mg PO BID [facility] Last Admin: 11/30/19 08:18 Dose: 200 mg Polyethylene Glycol (Miralax) 17 gm PO DAILY PRN PRN Reason: Constipation Sodium Chloride (Saline Flush) 10 ml FLUSH ASDIRECTED PRN PRN Reason: Keep Vein Open Tamsulosin HCl (Flomax) 0.4 mg PO DAILY [facility] Last Admin: 11/30/19 08:17 Dose: 0.4 mg Thiamine HCl (Vitamin B-1) 100 mg PO DAILY [facility] Last Admin: 11/30/19 08:12 Dose: 100 mg Trazodone HCl (Trazodone) 150 mg PO BEDTIME [facility] Last Admin: 11/29/19 20:04 Dose: 150 mg Discontinued Medications Hydrocodone Bitart/Acetaminophen ([place] 325-5 Mg) 1 tab PO ONETIME ONE Stop: 11/22/19 16:59 Last Admin: 11/22/19 17:03 Dose: 1 tab Sodium Chloride (Normal Saline) 1,000 mls @ 150 mls/hr IV ASDIRECTED [facility] Last Admin: 11/22/19 18:23 Dose: 150 mls/hr Sodium Chloride (Normal Saline) 1,000 mls @ 125 mls/hr IV ASDIRECTED [facility] Last Admin: 11/23/19 03:32 Dose: 125 mls/hr Sodium Chloride (Normal Saline) 75 mls @ 3 mls/sec IV ASDIRECTED [facility] Stop: 11/23/19 14:00 Last Admin: 11/23/19 11:26 Dose: 3 mls/sec Iopamidol (Isovue-300 (61%)) 100 ml IV . DIRECTED [facility] Stop: 11/23/19 14:00 Last Admin: 11/23/19 11:26 Dose: 100 ml Lorazepam (Ativan) 0 mg PO ASDIRECTED [facility]; Protocol Lorazepam (Ativan) 0 mg IV ASDIRECTED [facility]; Protocol Last Admin: 11/23/19 02:35 Dose: 1 mg Lorazepam (Ativan) Confirm Administered Dose 2 mg .ROUTE .STK-MED ONE Stop: 11/22/19 20:00 Last Admin: 11/22/19 20:05 Dose: Not Given Losartan Potassium (Cozaar) 25 mg PO DAILY [facility] Last Admin: 11/29/19 10:19 Dose: 25 mg Losartan Potassium (Cozaar) 25 mg PO ONETIME ONE Stop: 11/29/19 10:01 Last Admin: 11/29/19 10:20 Dose: 25 mg Non-Formulary Medication (Melatonin [Melatonin]) 5 mg PO BEDTIME [facility] Pantoprazole Sodium (Protonix) 40 mg PO DAILY [facility] Last Admin: 11/22/19 21:29 Dose: 40 mg Potassium Chloride (Klor-Con M20) 40 meq PO ONETIME ONE Stop: 11/23/19 10:16 Last Admin: 11/23/19 12:27 Dose: 40 meq Sodium Chloride (Saline Flush) 10 ml FLUSH ONETIME ONE Stop: 11/23/19 11:04 Last Admin: 11/23/19 11:26 Dose: 10 ml Thiamine HCl (Vitamin B-1) 100 mg PO ONETIME ONE Stop: 11/22/19 17:49 Last Admin: 11/22/19 18:23 Dose: 100 mg - Exam Quality Assessment: DVT Prophylaxis General: Alert, Oriented, Cooperative, No Acute Distress Lungs: Clear to Auscultation, Normal Respiratory Effort Cardiovascular: Regular Rate, Regular Rhythm, No Murmurs GI/Abdominal Exam: Soft, Non-Tender, No Organomegaly, No Distention Extremities: Non-Tender, No Pedal Edema Sepsis Event Note - Evaluation Sepsis Screening Result: No Definite Risk - Focused Exam Vital Signs: Vital Signs Temp Pulse Resp BP BP Pulse Ox 11/30/19 08:12 129/61 11/30/19 08:06 95.7 F L 76 16 129/61 95 Date Exam was Performed: 11/30/19 Time Exam was Performed: 10:27 - Problem List Review Problem List Initiated/Reviewed/Updated: Yes - Plan Plan:: ASSESSMENT AND PLAN ALCOHOL ABUSE-currently on a court hold and awaiting placement after violating his order of commitment. Patient went outside to have a cigarette 3 days ago despite orders to not go outside to smoke. He has been confined to his room since that time as a consequence of sneaking out. -Follow-up court recommendations and anticipate transfer -He is not to leave the unit unsupervised for any reason and he is aware of this [id number] negative. No recurrence. Probably related to posterior nosebleeds. -No further work-up needed Third metatarsal [id number] revealed a fracture at the base of the third metatarsal. Patient minimally compliant with recommendations for Sherif wrap and cam boot. -Wrap left foot with Sherif wrap to help with swelling -Weightbearing as tolerated -CAM boot when he is ambulating -Encourage use of walker Essential hypertension-blood pressure has been slowly rising during the hospital stay. -Continue clonidine -Increase losartan RECURRENT FALLS-secondary to ongoing alcohol abuse. None during the hospital stay. SEIZURES-no issues during the hospital stay. -Continue outpatient medical therapy for seizures MAINTENANCE ISSUES -DVT prophylaxis; Lovenox 40 mg subcu daily -GI prophylaxis; continue outpatient PPI therapy -Chavarria catheter; not indicated -Nutrition; 2 g sodium diet DISPOSITION-anticipate discharge to treatment facility on commitment. He is medically stable for discharge at this time but discharge plan is still in process.
[2019-11-30] MEDS: Enoxaparin 40 MG/0.4 ML Syringe SUBCUT SCH (20:53)
[2019-11-30] MEDS: Melatonin 3 MG Tab PO SCH (20:53)
[2019-11-30] MEDS: traZODone 50 MG Tab PO SCH (20:54)
[2019-12-01] MEDS: Acetaminophen 325 MG Tab PO PRN ×2 (04:25→20:38)
[2019-12-01] MEDS: Ibuprofen 600 MG Tab PO PRN ×2 (04:25→20:38)
[2019-12-01] MEDS: Phenytoin 100 MG Cap.ER PO SCH ×2 (08:09→20:39)
[2019-12-01] MEDS: PHENobarbital 32.4 MG Tab PO SCH ×2 (08:09→20:38)
[2019-12-01] MEDS: Pantoprazole 40 MG Tab.CR PO SCH (08:10)
[2019-12-01] MEDS: Thiamine 100 MG Tab PO SCH (08:10)
[2019-12-01] MEDS: Citalopram 20 MG Tab PO SCH (08:10)
[2019-12-01] MEDS: cloNIDine 0.1 MG Tab PO SCH ×2 (08:10→20:39)
[2019-12-01] MEDS: Losartan 50 MG Tab PO SCH (08:10)
[2019-12-01] MEDS: Multivitamins with Iron/Calcium/Folic Acid/Minerals Tab PO SCH (08:11)
[2019-12-01] MEDS: Docusate Sodium 100 MG Cap PO SCH (08:11)
[2019-12-01] MEDS: Tamsulosin 0.4 MG Cap.ER PO SCH (08:11)
[2019-12-01] MEDS: Gabapentin 400 MG Cap PO SCH ×3 (08:11→20:38)
[2019-12-01] MEDS: Folic Acid 1 MG Tab PO SCH (08:11)
--- NOTE | 2019-12-01 10:22 | PCM.PN ---
- General Info Date of Service: 12/01/19 Subjective Update: Mr. Degroot has been stable since yesterday. Continues to experience pain and swelling in his left foot, secondary to underlying metatarsal fracture. He refuses to keep the leg elevated, use Sherif wraps, or use his cam walker. Functional Status: Reports: Tolerating Diet, Ambulating, Urinating - Review of Systems General: Reports: No Symptoms Pulmonary: Reports: No Symptoms Cardiovascular: Reports: No Symptoms Gastrointestinal: Reports: No Symptoms Musculoskeletal: Reports: Back Pain, Foot Pain - Patient Data Vitals - Most Recent: Last Vital Signs Temp 97 F 12/01/19 07:00 Pulse 72 12/01/19 07:00 Resp 12 12/01/19 07:00 BP 141/58 H 12/01/19 08:10 Pulse Ox 97 12/01/19 07:00 Weight - Most Recent: 133 lb 15.951 oz I&O - Last 24 Hours: Intake & Output 11/30/19 12/01/19 12/01/19 22:59 06:59 14:59 Intake Total 360 Balance 360 Med Orders - Current: Current Medications Acetaminophen (Tylenol) 650 mg PO Q4H PRN PRN Reason: Pain (Mild 1-3)/fever Last Admin: 12/01/19 04:25 Dose: 650 mg Albuterol (Ventolin Hfa) 0 gm INH Q6H PRN PRN Reason: Dyspnea Citalopram Hydrobromide (Celexa) 40 mg PO DAILY [facility] Last Admin: 12/01/19 08:10 Dose: 40 mg Clonidine HCl (Catapres) 0.1 mg PO BID [facility] Last Admin: 12/01/19 08:10 Dose: 0.1 mg Docusate Sodium (Colace) 100 mg PO DAILY [facility] Last Admin: 12/01/19 08:11 Dose: Not Given Enoxaparin Sodium (Lovenox) 40 mg SUBCUT BEDTIME [facility] Last Admin: 11/30/19 20:53 Dose: 40 mg Folic Acid (Folic Acid) 1 mg PO DAILY [facility] Last Admin: 12/01/19 08:11 Dose: 1 mg Gabapentin (Neurontin) 400 mg PO TID [facility] Last Admin: 12/01/19 08:11 Dose: 400 mg Ibuprofen (Motrin) 600 mg PO Q8H PRN PRN Reason: Pain (moderate 4-6) Last Admin: 12/01/19 04:25 Dose: 600 mg Losartan Potassium (Cozaar) 50 mg PO DAILY [facility] Last Admin: 12/01/19 08:10 Dose: 50 mg Melatonin (Melatonin) 6 mg PO BEDTIME [facility] Last Admin: 11/30/19 20:53 Dose: 6 mg Multivitamins/Minerals (Thera M Plus) 1 tab PO DAILY [facility] Last Admin: 12/01/19 08:11 Dose: 1 tab Ondansetron HCl (Zofran) 4 mg IV Q4H PRN PRN Reason: Nausea/Vomiting Pantoprazole Sodium (Protonix) 40 mg PO DAILY@0730 [facility] Last Admin: 12/01/19 08:10 Dose: 40 mg Phenobarbital (Phenobarbital) 97.2 mg PO BID [facility] Last Admin: 12/01/19 08:09 Dose: 97.2 mg Phenytoin Sodium (Phenytoin) 200 mg PO BID [facility] Last Admin: 12/01/19 08:09 Dose: 200 mg Polyethylene Glycol (Miralax) 17 gm PO DAILY PRN PRN Reason: Constipation Sodium Chloride (Saline Flush) 10 ml FLUSH ASDIRECTED PRN PRN Reason: Keep Vein Open Tamsulosin HCl (Flomax) 0.4 mg PO DAILY [facility] Last Admin: 12/01/19 08:11 Dose: 0.4 mg Thiamine HCl (Vitamin B-1) 100 mg PO DAILY [facility] Last Admin: 12/01/19 08:10 Dose: 100 mg Trazodone HCl (Trazodone) 150 mg PO BEDTIME [facility] Last Admin: 11/30/19 20:54 Dose: 150 mg Discontinued Medications Hydrocodone Bitart/Acetaminophen ([place] 325-5 Mg) 1 tab PO ONETIME ONE Stop: 11/22/19 16:59 Last Admin: 11/22/19 17:03 Dose: 1 tab Sodium Chloride (Normal Saline) 1,000 mls @ 150 mls/hr IV ASDIRECTED [facility] Last Admin: 11/22/19 18:23 Dose: 150 mls/hr Sodium Chloride (Normal Saline) 1,000 mls @ 125 mls/hr IV ASDIRECTED [facility] Last Admin: 11/23/19 03:32 Dose: 125 mls/hr Sodium Chloride (Normal Saline) 75 mls @ 3 mls/sec IV ASDIRECTED [facility] Stop: 11/23/19 14:00 Last Admin: 11/23/19 11:26 Dose: 3 mls/sec Iopamidol (Isovue-300 (61%)) 100 ml IV . DIRECTED [facility] Stop: 11/23/19 14:00 Last Admin: 11/23/19 11:26 Dose: 100 ml Lorazepam (Ativan) 0 mg PO ASDIRECTED [facility]; Protocol Lorazepam (Ativan) 0 mg IV ASDIRECTED [facility]; Protocol Last Admin: 11/23/19 02:35 Dose: 1 mg Lorazepam (Ativan) Confirm Administered Dose 2 mg .ROUTE .STK-MED ONE Stop: 11/22/19 20:00 Last Admin: 11/22/19 20:05 Dose: Not Given Losartan Potassium (Cozaar) 25 mg PO DAILY [facility] Last Admin: 11/29/19 10:19 Dose: 25 mg Losartan Potassium (Cozaar) 25 mg PO ONETIME ONE Stop: 11/29/19 10:01 Last Admin: 11/29/19 10:20 Dose: 25 mg Non-Formulary Medication (Melatonin [Melatonin]) 5 mg PO BEDTIME [facility] Pantoprazole Sodium (Protonix) 40 mg PO DAILY [facility] Last Admin: 11/22/19 21:29 Dose: 40 mg Potassium Chloride (Klor-Con M20) 40 meq PO ONETIME ONE Stop: 11/23/19 10:16 Last Admin: 11/23/19 12:27 Dose: 40 meq Sodium Chloride (Saline Flush) 10 ml FLUSH ONETIME ONE Stop: 11/23/19 11:04 Last Admin: 11/23/19 11:26 Dose: 10 ml Thiamine HCl (Vitamin B-1) 100 mg PO ONETIME ONE Stop: 11/22/19 17:49 Last Admin: 11/22/19 18:23 Dose: 100 mg - Exam General: Alert, Oriented, Cooperative, Mild Distress Lungs: Clear to Auscultation, Normal Respiratory Effort Cardiovascular: Regular Rate, Regular Rhythm, No Murmurs GI/Abdominal Exam: Soft, Non-Tender, No Organomegaly, No Distention Extremities: Other (Swelling and pain left foot) Sepsis Event Note - Evaluation Sepsis Screening Result: No Definite Risk - Focused Exam Vital Signs: Vital Signs Temp Pulse Resp BP BP Pulse Ox 12/01/19 08:10 141/58 H 12/01/19 07:00 97 F 72 12 141/58 H 97 12/01/19 03:00 16 11/30/19 23:00 16 Date Exam was Performed: 12/01/19 Time Exam was Performed: 10:16 - Problem List Review Problem List Initiated/Reviewed/Updated: Yes - Plan Plan:: ASSESSMENT AND PLAN ALCOHOL ABUSE-currently on a court hold and awaiting placement after violating his order of commitment. Patient went outside to have a cigarette 4 days ago despite orders to not go outside to smoke. He has been confined to his room since that time as a consequence of sneaking out. -Follow-up court recommendations and anticipate transfer to assisted living facility tomorrow -He is not to leave the unit unsupervised for any reason and he is aware of this [id number] negative. No recurrence. Probably related to posterior nosebleeds. -No further work-up needed Third metatarsal [id number] revealed a fracture at the base of the third metatarsal. Patient is not compliant with recommendations for Sherif wrap and cam boot. -Wrap left foot with Sherif wrap to help with swelling -Weightbearing as tolerated -CAM boot when he is ambulating -Encourage use of walker Essential hypertension -Continue clonidine and losartan RECURRENT FALLS-secondary to ongoing alcohol abuse. None during the hospital stay. SEIZURES-no issues during the hospital stay. -Continue outpatient medical therapy for seizures MAINTENANCE ISSUES -DVT prophylaxis; Lovenox 40 mg subcu daily -GI prophylaxis; continue outpatient PPI therapy -Chavarria catheter; not indicated -Nutrition; 2 g sodium diet DISPOSITION-anticipate discharge to treatment facility on commitment. He is medically stable for discharge at this time but discharge plan is still in process.
--- NOTE | 2019-12-01 18:23 | PCM.DCSUM1 ---
Discharge Summary - Hospital Course Brief History: Mr. Degroot is a 69-year-old gentleman who was admitted through the emergency department with alcohol intoxication and multiple recent falls as well as hemoptysis. - Discharge Data Discharge Date: 12/02/19 Discharge Disposition: [facility] Condition: Fair - Referral to Home Health Primary Care Physician: PCP None - Discharge Diagnosis/Problem(s) (1) Alcohol intoxication SNOMED Code(s): 43016477 ICD Code: F10.929 - ALCOHOL USE, UNSPECIFIED WITH INTOXICATION, UNSPECIFIED Status: Acute Current Visit: Yes Qualifiers: Complication of substance-induced condition: with unspecified complication Qualified Code(s): F10.929 - Alcohol use, unspecified with intoxication, unspecified (2) Hemoptysis SNOMED Code(s): 58306140 ICD Code: R04.2 - HEMOPTYSIS Status: Acute Current Visit: Yes (3) Frequent falls SNOMED Code(s): 984743991 ICD Code: R29.6 - REPEATED FALLS Status: Acute Current Visit: No (4) Alcohol abuse SNOMED Code(s): 34258141 ICD Code: F10.10 - ALCOHOL ABUSE, UNCOMPLICATED Status: Chronic Current Visit: No (5) Seizure disorder SNOMED Code(s): 656062551 ICD Code: G40.909 - EPILEPSY, UNSP, NOT INTRACTABLE, WITHOUT STATUS EPILEPTICUS Status: Chronic Priority: Low Current Visit: No - Patient Summary/Data Consults: Consultations 11/24/19 10:45 PT Evaluation and Treatment [CONS] Routine Please Evaluate and Treat. PT Reason for Consult: Strengthening Special Instructions: CAM boot with ambulation on left foot This query below is only for informational purposes and is not editable. Admission Diagnosis/Problem: Hemoptysis Hospital Course: Mr. Degroot is a 69-year-old gentleman who was admitted through the emergency department with hemoptysis and alcohol intoxication. He has a known history of longstanding alcohol abuse. He was hospitalized at this facility during the early portion of the year and at that time received a commitment order. He was transferred to a treatment facility and was discharged from there. Since he returned to his apartment he has started drinking again. He went approximately 5 days without being able to take his seizure medication and was seen here in the emergency department. He had experienced 2 seizures at home with associated falls and ecchymosis. He has been taking seizure medication over the past 5 days but is continued to drink. He is developed hemoptysis and has been very unsteady on his feet with further falls. He reports a history of bilateral mesothelioma, from previous asbestos exposure. He denies fever chills or sweats, other than the hemoptysis there is been no shortness of breath or pleuritic pain. He does have a longstanding smoking history. He was admitted to the hospital and placed on alcohol withdrawal protocol. He showed only mild symptoms of alcohol withdrawal during his hospitalization. CT scan of the chest was obtained and showed evidence of chronic lung disease including COPD and interstitial fibrosis. There was no evidence of mass or other potential source of hemoptysis. It was felt likely that the hemoptysis was secondary to posterior nasal bleeding. Because of his ongoing commitment, the [facility] mandated that he stay in the hospital until acceptable discharge plan could be accomplished. He will be discharged to [facility], until further alcohol treatment can be facilitated. Lorrie will be as tolerated and he will be on a heart healthy diet. Follow-up appointment will be scheduled with his primary care provider within 1 week. - Patient Instructions Diet: Heart Healthy Diet Activity: As Tolerated Other/Special Instructions: Please schedule follow-up appointment with primary care provider within 1 week. - Discharge Plan *PRESCRIPTION DRUG MONITORING PROGRAM REVIEWED*: No *COPY OF PRESCRIPTION DRUG MONITORING REPORT IN PATIENT MONSE: No Prescriptions/Med Rec: Albuterol Sulfate [Albuterol Sulfate Hfa] 2 puff IH Q4H #1 hfa.aer.ad Citalopram [Citalopram HBr] 40 mg PO DAILY #60 tablet cloNIDine HCL [Clonidine HCl] 0.1 mg PO BID #60 tablet Docusate Sodium [Colace] 100 mg PO DAILY #30 cap Folic Acid 1 mg PO DAILY #30 tablet Ibuprofen [Motrin] 600 mg PO Q8H PRN #100 tablet PRN Reason: Pain (Moderate 4-6) Losartan [Cozaar] 50 mg PO DAILY #30 tablet Melatonin 5 mg PO BEDTIME #30 capsule Multivitamin with Minerals [Multiple Vitamin] 1 tab PO DAILY #30 tablet Nitroglycerin 0.4 mg SL ASDIRECTED #50 tab.subl Pantoprazole [ProTONIX] 40 mg PO DAILY@0730 #30 tab.cr PHENobarbitaL [Phenobarbital] 97.2 mg PO BID #60 tablet Phenytoin 200 mg PO BID #120 cap.er Tamsulosin HCl 0.4 mg PO DAILY #30 capsule Thiamine HCl [Vitamin B-1] 100 mg PO DAILY #30 tablet traZODone HCl [Trazodone HCl] 150 mg PO BEDTIME #30 tablet Home Medications: Home Meds Albuterol Sulfate [Albuterol Sulfate Hfa] 2 puff IH Q4H #1 hfa.aer.ad 12/01/19 [ Rx] Citalopram [Citalopram HBr] 40 mg PO DAILY #60 tablet 12/01/19 [Rx] Docusate Sodium [Colace] 100 mg PO DAILY #30 cap 12/01/19 [Rx] Folic Acid 1 mg PO DAILY #30 tablet 12/01/19 [Rx] Ibuprofen [Motrin] 600 mg PO Q8H PRN #100 tablet 12/01/19 [Rx] Losartan [Cozaar] 50 mg PO DAILY #30 tablet 12/01/19 [Rx] Melatonin 5 mg PO BEDTIME #30 capsule 12/01/19 [Rx] Multivitamin with Minerals [Multiple Vitamin] 1 tab PO DAILY #30 tablet [Rx] Nitroglycerin 0.4 mg SL ASDIRECTED #50 tab.subl 12/01/19 [Rx] PHENobarbitaL [Phenobarbital] 97.2 mg PO BID #60 tablet 12/01/19 [Rx] Pantoprazole [ProTONIX] 40 mg PO DAILY@0730 #30 tab.cr 12/01/19 [Rx] Phenytoin 200 mg PO BID #120 cap.er 12/01/19 [Rx] Tamsulosin HCl 0.4 mg PO DAILY #30 capsule 12/01/19 [Rx] Thiamine HCl [Vitamin B-1] 100 mg PO DAILY #30 tablet 12/01/19 [Rx] cloNIDine HCL [Clonidine HCl] 0.1 mg PO BID #60 tablet 12/01/19 [Rx] traZODone HCl [Trazodone HCl] 150 mg PO BEDTIME #30 tablet 12/01/19 [Rx] Referrals: Alanna Bragg PA-C [Physician [employer] Device Scientist] - - Discharge Summary/Plan Comment DC Time >30 min.: No - Patient Data Vitals - Most Recent: Last Vital Signs Temp 97 F 12/01/19 15:39 Pulse 80 12/01/19 15:39 Resp 12 12/01/19 15:39 BP 135/66 12/01/19 15:39 Pulse Ox 98 12/01/19 15:39 Weight - Most Recent: 133 lb 15.951 oz Med Orders - Current: Current Medications Acetaminophen (Tylenol) 650 mg PO Q4H PRN PRN Reason: Pain (Mild 1-3)/fever Last Admin: 12/01/19 04:25 Dose: 650 mg Albuterol (Ventolin Hfa) 0 gm INH Q6H PRN PRN Reason: Dyspnea Citalopram Hydrobromide (Celexa) 40 mg PO DAILY [facility] Last Admin: 12/01/19 08:10 Dose: 40 mg Clonidine HCl (Catapres) 0.1 mg PO BID [facility] Last Admin: 12/01/19 08:10 Dose: 0.1 mg Docusate Sodium (Colace) 100 mg PO DAILY [facility] Last Admin: 12/01/19 08:11 Dose: Not Given Enoxaparin Sodium (Lovenox) 40 mg SUBCUT BEDTIME [facility] Last Admin: 11/30/19 20:53 Dose: 40 mg Folic Acid (Folic Acid) 1 mg PO DAILY [facility] Last Admin: 12/01/19 08:11 Dose: 1 mg Gabapentin (Neurontin) 400 mg PO TID [facility] Last Admin: 12/01/19 14:26 Dose: 400 mg Ibuprofen (Motrin) 600 mg PO Q8H PRN PRN Reason: Pain (moderate 4-6) Last Admin: 12/01/19 04:25 Dose: 600 mg Losartan Potassium (Cozaar) 50 mg PO DAILY [facility] Last Admin: 12/01/19 08:10 Dose: 50 mg Melatonin (Melatonin) 6 mg PO BEDTIME [facility] Last Admin: 11/30/19 20:53 Dose: 6 mg Multivitamins/Minerals (Thera M Plus) 1 tab PO DAILY [facility] Last Admin: 12/01/19 08:11 Dose: 1 tab Ondansetron HCl (Zofran) 4 mg IV Q4H PRN PRN Reason: Nausea/Vomiting Pantoprazole Sodium (Protonix) 40 mg PO DAILY@0730 [facility] Last Admin: 12/01/19 08:10 Dose: 40 mg Phenobarbital (Phenobarbital) 97.2 mg PO BID [facility] Last Admin: 12/01/19 08:09 Dose: 97.2 mg Phenytoin Sodium (Phenytoin) 200 mg PO BID [facility] Last Admin: 12/01/19 08:09 Dose: 200 mg Polyethylene Glycol (Miralax) 17 gm PO DAILY PRN PRN Reason: Constipation Sodium Chloride (Saline Flush) 10 ml FLUSH ASDIRECTED PRN PRN Reason: Keep Vein Open Tamsulosin HCl (Flomax) 0.4 mg PO DAILY [facility] Last Admin: 12/01/19 08:11 Dose: 0.4 mg Thiamine HCl (Vitamin B-1) 100 mg PO DAILY [facility] Last Admin: 12/01/19 08:10 Dose: 100 mg Trazodone HCl (Trazodone) 150 mg PO BEDTIME [facility] Last Admin: 11/30/19 20:54 Dose: 150 mg Discontinued Medications Hydrocodone Bitart/Acetaminophen ([place] 325-5 Mg) 1 tab PO ONETIME ONE Stop: 11/22/19 16:59 Last Admin: 11/22/19 17:03 Dose: 1 tab Sodium Chloride (Normal Saline) 1,000 mls @ 150 mls/hr IV ASDIRECTED [facility] Last Admin: 11/22/19 18:23 Dose: 150 mls/hr Sodium Chloride (Normal Saline) 1,000 mls @ 125 mls/hr IV ASDIRECTED [facility] Last Admin: 11/23/19 03:32 Dose: 125 mls/hr Sodium Chloride (Normal Saline) 75 mls @ 3 mls/sec IV ASDIRECTED BRITTANY Stop: 11/23/19 14:00 Last Admin: 11/23/19 11:26 Dose: 3 mls/sec Iopamidol (Isovue-300 (61%)) 100 ml IV . DIRECTED [facility] Stop: 11/23/19 14:00 Last Admin: 11/23/19 11:26 Dose: 100 ml Lorazepam (Ativan) 0 mg PO ASDIRECTED BRITTANY; Protocol Lorazepam (Ativan) 0 mg IV ASDIRECTED BRITTANY; Protocol Last Admin: 11/23/19 02:35 Dose: 1 mg Lorazepam (Ativan) Confirm Administered Dose 2 mg .ROUTE .STK-MED ONE Stop: 11/22/19 20:00 Last Admin: 11/22/19 20:05 Dose: Not Given Losartan Potassium (Cozaar) 25 mg PO DAILY [facility] Last Admin: 11/29/19 10:19 Dose: 25 mg Losartan Potassium (Cozaar) 25 mg PO ONETIME ONE Stop: 11/29/19 10:01 Last Admin: 11/29/19 10:20 Dose: 25 mg Non-Formulary Medication (Melatonin [Melatonin]) 5 mg PO BEDTIME [facility] Pantoprazole Sodium (Protonix) 40 mg PO DAILY [facility] Last Admin: 11/22/19 21:29 Dose: 40 mg Potassium Chloride (Klor-Con M20) 40 meq PO ONETIME ONE Stop: 11/23/19 10:16 Last Admin: 11/23/19 12:27 Dose: 40 meq Sodium Chloride (Saline Flush) 10 ml FLUSH ONETIME ONE Stop: 11/23/19 11:04 Last Admin: 11/23/19 11:26 Dose: 10 ml Thiamine HCl (Vitamin B-1) 100 mg PO ONETIME ONE Stop: 11/22/19 17:49 Last Admin: 11/22/19 18:23 Dose: 100 mg - Exam Quality Assessment: Reports: DVT Prophylaxis General: Reports: Alert, Oriented, Cooperative, No Acute Distress, Mild Distress , Moderate Distress Lungs: Reports: Normal Respiratory Effort, Decreased Breath Sounds. Denies: Rales, Rhonchi, Wheezing Cardiovascular: Reports: Regular Rate, Regular Rhythm, No Murmurs GI/Abdominal Exam: Soft, Non-Tender, No Organomegaly, No Distention Back Exam: Reports: Vertebral Tenderness Extremities: Non-Tender, No Pedal Edema
[2019-12-01] MEDS: traZODone 50 MG Tab PO SCH (20:37)
[2019-12-01] MEDS: Melatonin 3 MG Tab PO SCH (20:39)
[2019-12-01] MEDS: Enoxaparin 40 MG/0.4 ML Syringe SUBCUT SCH (20:40)
[2019-12-02] MEDS: Acetaminophen 325 MG Tab PO PRN (03:16)
[2019-12-02] MEDS: Ibuprofen 600 MG Tab PO PRN (05:02)
[2019-12-02 07:26] VITALS: BP 136/63; PULSE 70
== END 2019-12-02 09:00 | DRG 897 ==
LOC: JP.ED 16:45 → JP.ICU 17:55
PROVIDERS: ADMIT Hospitalist; ATTEND Hospitalist
DX: F10.239 Alcohol dependence with withdrawal, unspecified (principal); E87.1 Hypo-osmolality and hyponatremia; F10.929 Alcohol use, unspecified with intoxication, unspecified; R04.2 Hemoptysis; E46 Unspecified protein-calorie malnutrition; J44.9 Chronic obstructive pulmonary disease, unspecified; F17.210 Nicotine dependence, cigarettes, uncomplicated; J84.10 Pulmonary fibrosis, unspecified; G40.909 Epilepsy, unspecified, not intractable, without status epilepticus; S92.332A Displaced fracture of third metatarsal bone, left foot, initial encounter for closed fracture; Z86.711 Personal history of pulmonary embolism; C45.7 Mesothelioma of other sites; H54.7 Unspecified visual loss; H35.30 Unspecified macular degeneration; I25.10 Atherosclerotic heart disease of native coronary artery without angina pectoris; I11.0 Hypertensive heart disease with heart failure; I50.9 Heart failure, unspecified; K59.09 Other constipation; K21.9 Gastro-esophageal reflux disease without esophagitis; N40.0 Benign prostatic hyperplasia without lower urinary tract symptoms; F31.9 Bipolar disorder, unspecified; G47.09 Other insomnia; Z85.850 Personal history of malignant neoplasm of thyroid; G89.29 Other chronic pain; M81.0 Age-related osteoporosis without current pathological fracture; G62.9 Polyneuropathy, unspecified; F32.9 Major depressive disorder, single episode, unspecified; R29.6 Repeated falls; Z87.440 Personal history of urinary (tract) infections; W19.XXXA Unspecified fall, initial encounter; Z85.89 Personal history of malignant neoplasm of other organs and systems; Z79.899 Other long term (current) drug therapy; Z79.01 Long term (current) use of anticoagulants; Z88.0 Allergy status to penicillin; Z86.718 Personal history of other venous thrombosis and embolism; Z85.118 Personal history of other malignant neoplasm of bronchus and lung; Z90.49 Acquired absence of other specified parts of digestive tract; Z98.49 Cataract extraction status, unspecified eye; Z90.89 Acquired absence of other organs; Z98.1 Arthrodesis status; M54.5 Low back pain
CPT/HCPCS: 36415; 71046; 80048; 80307; 85027; 99284; 99285; A9270; 71260; 71260-26; 73620-LT; 80053; 81001; 85025; 85610; 97110-GP; 97116-GP; 97161-GP; J1650; J2060; J7030; J7050; Q9967

== ENCOUNTER 2019-12-21 10:06 | Emergency (ER) | payer MEDICARE, MEDICAID ==
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
[2019-12-21 11:22] VITALS: BP 132/89; PULSE 99
--- NOTE | 2019-12-21 11:51 | CT ---
Head wo Cont CLINICAL HISTORY: Fall, pain COMPARISON: October 2019 TECHNIQUE: Transverse scans were obtained from the base of the skull through the vertex without IV contrast on a multislice, multidetector CT scanner. Auto dosage reduction and iterative reconstruction techniques employed. FINDINGS: No focal abnormal parenchymal density is identified.. There is no mass effect, hemorrhage, or extraaxial collection. The basal cisterns and sulci over the convexities are prominent. The ventricles are all for age. IMPRESSION: Mild age-related atrophy similar to prior study. No acute intracranial process
--- NOTE | 2019-12-21 11:57 | CT ---
Cervical Spine wo Cont CLINICAL HISTORY: Fall, pain TECHNIQUE: Multiple CT sections were taken through the cervical spine in the transaxial projection. Coronal and sagittal views were reconstructed. Images were viewed at bone as well as soft tissue windows on a digital workstation. Auto dosage reduction and iterative reconstruction techniques employed. FINDINGS: Sagittal images show a superior endplate compression deformity at C7 which is unchanged since the 2017. There is diffuse degenerative disc disease with spondylosis. Alignment is maintained. There is mild bony foraminal encroachment at the C4-5 bilaterally. Soft tissues are unremarkable. IMPRESSION: No cute fracture or subluxation. The old the superior endplate compression deformity of C7 Vertebral joint spurring causing bony foraminal encroachment bilaterally at C4-5
--- NOTE | 2019-12-21 12:01 | CT ---
Max Facial Sinus wo Cont CLINICAL HISTORY: Fall, pain TECHNIQUE: Multiple contiguous axial sections were obtained through the facial bones followed by coronal reconstructions without the IV infusion of contrast material. Auto dosage reduction and iterative reconstruction techniques employed. FINDINGS: There is minimally displaced fractures of the nasal bones bilaterally. There is some leftward bowing of the nasal septum. There is a small linear defect in the anterior septum superiorly also felt to represent fracture. There is some mild mucosal thickening in the ethmoid sinuses. The bony orbits appear intact. Zygomatic arches appear intact. There is a fracture of the anterior nasal spine. The patient is a potential is IMPRESSION: Slightly displaced nasal bone fractures Fracture of the anterior nasal septum Fracture of the anterior nasal spine Mild changes of chronic sinusitis
[2019-12-21] MEDS ORDERED: Ketorolac 30 MG/ML SDV IVPUSH ONE (12:12)
== END 2019-12-21 12:40 | disposition home or self-care (01) ==
LOC: JP.ED 10:06
DX: S00.83XA Contusion of other part of head, initial encounter (principal); I11.0 Hypertensive heart disease with heart failure; I50.9 Heart failure, unspecified; I25.10 Atherosclerotic heart disease of native coronary artery without angina pectoris; K21.9 Gastro-esophageal reflux disease without esophagitis; F32.9 Major depressive disorder, single episode, unspecified; F17.210 Nicotine dependence, cigarettes, uncomplicated; Z79.01 Long term (current) use of anticoagulants; Z79.899 Other long term (current) drug therapy; Z88.0 Allergy status to penicillin; W19.XXXA Unspecified fall, initial encounter; W22.8XXA Striking against or struck by other objects, initial encounter; Y93.01 Activity, walking, marching and hiking; Y92.099 Unspecified place in other non-institutional residence as the place of occurrence of the external cause
CPT/HCPCS: 70450; 70486; 72125; 96374; 99285; J1885

== ENCOUNTER 2020-02-11 14:10 | Emergency (ER) | payer MEDICARE, MEDICAID ==
[2020-02-11 14:41] VITALS: BP 132/54; PULSE 100
== END 2020-02-11 14:34 | disposition left against medical advice (07) ==
LOC: JP.ED 14:10
DX: Z53.21 Procedure and treatment not carried out due to patient leaving prior to being seen by health care provider (principal)
CPT/HCPCS: 36415; 80307

== ENCOUNTER 2020-02-12 10:09 | Emergency (ER) | payer MEDICARE, MEDICAID ==
[2020-02-12 10:45] VITALS: BP 148/68; PULSE 87
[2020-02-12] MEDS ORDERED: Sodium Chloride 0.9% 10 ML Syringe FLUSH PRN (10:47)
[2020-02-12] MEDS ORDERED: MVI, Adult with Vitamin K 10 ML, Thiamine 200 MG, Folic Acid 1 MG, Magnesium Sulfate 2 ... IV ONE ×10 (10:48→11:00)
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
--- NOTE | 2020-02-12 11:44 | CT ---
Head wo Cont CLINICAL HISTORY: Fall COMPARISON: 12/24/2019 TECHNIQUE: Transverse scans were obtained from the base of the skull through the vertex without IV contrast on a multislice, multidetector CT scanner. Auto dosage reduction and iterative reconstruction techniques employed. FINDINGS: No focal abnormal parenchymal density is identified. There is no mass effect, hemorrhage, or extraaxial collection. The basal cisterns and sulci over the convexities are prominent. The ventricles are mildly prominent. IMPRESSION: Moderate atrophic changes No acute intracranial process
--- NOTE | 2020-02-12 11:50 | CR ---
Lumbar Spine Min 4V CLINICAL HISTORY: Fall FINDINGS: Patient has a moderate compression deformity of L3 with previous vertebroplasty. Vertebroplasty's are also seen at T12, T10 and T9 and T7. There is a compression fracture of T8 which is present in November. There is moderate osteoarthritic change in the lumbar facets. There is a minimal retrolisthesis of L3 slightly increased in flexion. This is likely due to facet disease There are atherosclerotic changes in the aorta. IMPRESSION: Multiple previous vertebroplasties Diffuse degenerative disc changes and osteoarthritis
== END 2020-02-12 12:45 | disposition home or self-care (01) ==
LOC: JP.ED 10:09
DX: S30.0XXA Contusion of lower back and pelvis, initial encounter (principal); S09.90XA Unspecified injury of head, initial encounter; K21.9 Gastro-esophageal reflux disease without esophagitis; F32.9 Major depressive disorder, single episode, unspecified; R56.9 Unspecified convulsions; F10.129 Alcohol abuse with intoxication, unspecified; I11.0 Hypertensive heart disease with heart failure; I50.9 Heart failure, unspecified; I25.10 Atherosclerotic heart disease of native coronary artery without angina pectoris; F17.210 Nicotine dependence, cigarettes, uncomplicated; J44.9 Chronic obstructive pulmonary disease, unspecified; Z88.0 Allergy status to penicillin; Z79.899 Other long term (current) drug therapy; W19.XXXA Unspecified fall, initial encounter; Y92.009 Unspecified place in unspecified non-institutional (private) residence as the place of occurrence of the external cause; Y99.0 Civilian activity done for income or pay
CPT/HCPCS: 36415; 70450; 72110; 80053; 80307; 85025; 96365; 96366; 99284; J3411; J3475; J7121; 99283; J3490

== ENCOUNTER 2020-02-13 16:44 | Emergency (ER) | payer MEDICARE, MEDICAID ==
[2020-02-13] MEDS ORDERED: Cyclobenzaprine 10 MG Tab PO ONE (16:52)
[2020-02-13] MEDS ORDERED: Ketorolac 60 MG/2 ML SDV IM ONE (16:52)
[2020-02-13 17:03] VITALS: BP 160/70; PULSE 101
[2020-02-13] MEDS ORDERED: LORazepam 2 MG/ML SDV IM ONE (17:03)
[2020-02-13] MEDS ORDERED: Lidocaine 5% 700 MG Patch TOP ONE (17:07)
--- NOTE | 2020-02-13 17:56 | EDM.PDOC ---
ED HPI GENERAL MEDICAL PROBLEM - General Chief Complaint: Drug or Alcohol Abuse Stated Complaint: MEDICAL VIA [facility] Time Seen by Provider: 02/13/20 16:47 Source of Information: Reports: Patient, RN Notes Reviewed History Limitations: Reports: No Limitations - History of Present Illness INITIAL COMMENTS - FREE TEXT/NARRATIVE: 69-year-old gentleman presents emergency department a complaint of low back pain, he underwent image studying yesterday which revealed no acute process does have a history of chronic back pain denies any loss of bowel or bladder or fevers - Related Data Allergies Allergy/AdvReac Type Severity Reaction Status Date / Time Penicillins Allergy Severe Anaphylactic Verified 02/13/20 16:49 Shock Home Meds: Home Meds Albuterol Sulfate [Albuterol Sulfate Hfa] 2 puff IH Q4H #1 hfa.aer.ad 12/01/19 [Rx] Citalopram [Citalopram HBr] 40 mg PO DAILY #60 tablet 12/01/19 [Rx] Docusate Sodium [Colace] 100 mg PO DAILY #30 cap 12/01/19 [Rx] Folic Acid 1 mg PO DAILY #30 tablet 12/01/19 [Rx] Melatonin 5 mg PO BEDTIME #30 capsule 12/01/19 [Rx] Multivitamin with Minerals [Multiple Vitamin] 1 tab PO DAILY #30 tablet 12/01/19 [Rx] PHENobarbitaL [Phenobarbital] 97.2 mg PO BID #60 tablet 12/01/19 [Rx] Tamsulosin HCl 0.4 mg PO DAILY #30 capsule 12/01/19 [Rx] Thiamine HCl [Vitamin B-1] 100 mg PO DAILY #30 tablet 12/01/19 [Rx] cloNIDine HCL [Clonidine HCl] 0.1 mg PO BID #60 tablet 12/01/19 [Rx] traZODone HCl [Trazodone HCl] 150 mg PO BEDTIME #30 tablet 12/01/19 [Rx] Phenytoin 100 mg PO BID 12/21/19 [History] Losartan [Cozaar] 25 mg PO DAILY 02/13/20 [History] hydrOXYzine HCL [hydrOXYzine] 25 mg PO BID 02/13/20 [History] Past Medical History HEENT History: Reports: Cataract, Impaired Vision, Macular Degeneration Cardiovascular History: Reports: Blood Clots/VTE/DVT, CAD, Heart Failure, Hypertension, SOB on Exertion, Syncope Respiratory History: Reports: COPD, PE, SOB, Other (See Below) Other Respiratory History: calcified pleural plaque on chest x-ray. Mesoth elioma of both lungs Gastrointestinal History: Reports: Cholelithiasis, Chronic Constipation, GERD Genitourinary History: Reports: BPH, Renal Disease, Other (See Below) Other Genitourinary History: recent kidney function issue but undiagnoised at this time Musculoskeletal History: Reports: Back Pain, Chronic, Fracture, Osteoporosis, Other (See Below) Other Musculoskeletal History: has metal in left hand from [employer] during [place] war;. shattered pelvis; multiple compression fractures Neurological History: Reports: Neuropathy, Peripheral, Seizure Psychiatric History: Reports: Addiction, Depression, Eating Disorders, Suicide Attempt Other Psychiatric History: Malnutrition due to inability to swallow. Insomnia Endocrine/Metabolic History: Reports: Other (See Below) Other Endocrine/Metabolic History: recent elevated blood sugars, undiagnoised. thyroid cancer, failed to go to surgery on 09/01/16 Hematologic History: Reports: Anticoagulation Therapy Oncologic (Cancer) History: Reports: Lung, Thyroid Other Oncologic History: s/s of mesotheleoma - Infectious Disease History Infectious Disease History: Reports: Chicken Pox, Measles, Mumps - Past Surgical History Head Surgeries/Procedures: Reports: None HEENT Surgical History: Reports: Adenoidectomy, Cataract Surgery, Tonsillectomy Cardiovascular Surgical History: Reports: None Respiratory Surgical History: Reports: None GI Surgical History: Reports: Cholecystectomy, EGD, Esophageal Dilatation Male Surgical History: Reports: None Endocrine Surgical History: Reports: Thyroid Biopsy Neurological Surgical History: Reports: Spinal Fusion Musculoskeletal Surgical History: Reports: None Oncologic Surgical History: Reports: None Dermatological Surgical History: Reports: None Social & Family History - Family History Family Medical History: Noncontributory - Caffeine Use Caffeine Use: Reports: Coffee Caffeine Use Comment: unknown, patient has difficulty answering questions. - Living Situation & Occupation Living situation: Reports: , with Family Occupation: Disabled ED ROS GENERAL - Review of Systems Review Of Systems: See Below Constitutional: Reports: No Symptoms GI/Abdominal: Reports: No Symptoms : Reports: No Symptoms Musculoskeletal: Reports: Back Pain ED EXAM,LOWER BACK PAIN/INJURY - Physical Exam Exam: See Below Text/Narrative:: Examination of the low back he is tender both paraspinally on right and left he does have a small ulcer in lumbar region over the spinous process however there is no tenderness to palpation Exam Limited By: No Limitations General Appearance: Alert, WD/WN, No Apparent Distress Course - Vital Signs Last Recorded V/S: Last Vital Signs Temp 97.2 F 02/13/20 16:51 Pulse 101 H 02/13/20 16:51 Resp 16 02/13/20 16:51 BP 160/70 H 02/13/20 16:51 Pulse Ox 93 L 02/13/20 16:51 - Orders/Labs/Meds Meds: Medications Discontinued Medications Generic Name Dose Route Start Last Admin Trade Name [place] PRN Reason Stop Dose Admin Cyclobenzaprine HCl 10 mg 02/13/20 16:52 02/13/20 17:38 Flexeril PO 02/13/20 16:53 10 mg ONETIME ONE Administration Ketorolac Tromethamine 60 mg 02/13/20 16:52 02/13/20 17:38 Toradol IM 02/13/20 16:53 60 mg ONETIME ONE Administration Lidocaine 700 mg 02/13/20 17:07 02/13/20 17:39 Lidoderm 5% TOP 02/13/20 17:08 700 mg ONETIME ONE Administration Lorazepam 1 mg 02/13/20 17:03 02/13/20 17:39 Ativan IM 02/13/20 17:04 1 mg ONETIME ONE Administration Departure - Departure Time of Disposition: 17:55 Disposition: Home, Self-Care 01 Condition: Poor Clinical Impression: Chronic back pain - Discharge Information Instructions: Acute Back Pain, Adult Referrals: PCP,None [Primary Care Provider] - Additional Instructions: Follow-up with primary care next week for further evaluation Sepsis Event Note (ED) - Focused Exam Vital Signs: Vital Signs Temp Pulse Resp BP Pulse Ox 02/13/20 16:51 97.2 F 101 H 16 160/70 H 93 L - Assessment/Plan Plan: Assessment Acuity = acute on chronic Site and laterality = low back pain Etiology = multiple compression fractures Manifestations = none Location of injury = Home Lab values = none Plan Good relief combination Toradol, Flexeril and Ativan follow-up with primary care next week for further evaluation This note was dictated using [employer] voice recognition software please call with any questions on syntax or grammar.
== END 2020-02-13 18:40 | disposition home or self-care (01) ==
LOC: JP.ED 16:44
DX: G89.29 Other chronic pain (principal); M54.5 Low back pain; I11.0 Hypertensive heart disease with heart failure; I50.9 Heart failure, unspecified; I25.10 Atherosclerotic heart disease of native coronary artery without angina pectoris; F32.9 Major depressive disorder, single episode, unspecified; Z90.49 Acquired absence of other specified parts of digestive tract; Z88.0 Allergy status to penicillin; Z79.899 Other long term (current) drug therapy
CPT/HCPCS: 96372; 99283; A9270; J1885; J2060

== ENCOUNTER 2020-02-13 19:42 | Emergency (ER) | payer MEDICARE, MEDICAID ==
[2020-02-13] MEDS ORDERED: Sodium Chloride 0.9% 1,000 ML IV SCH (20:00)
--- NOTE | 2020-02-13 20:03 | EDM.PDOCBH ---
ED HPI GENERAL MEDICAL PROBLEM - General Chief Complaint: Drug or Alcohol Abuse Stated Complaint: VIA [facility] Time Seen by Provider: 02/13/20 19:50 Source of Information: Reports: Patient, EMS, Police History Limitations: Reports: Intoxication - History of Present Illness INITIAL COMMENTS - FREE TEXT/NARRATIVE: 69-year-old male, chronic alcoholic has been in the emergency room 3 times in the last 24 hours. He was just discharged back to his apartment in fact was provided a ride, but fell on the front lawn and laid down. The police and EMS were called again, no apparent injury. Because of the frequent police and ambulance calls and the inability of this patient to stay sober as an outpatient, the police wrote a 24-hour hold on the patient for detox. He arrived awake, responsive, appears sleepy but in very similar condition as his discharge 1 hour ago. He did receive Ativan on his earlier ER visit. Onset: Unknown/Unsure Associated Symptoms: Reports: Confusion, Malaise, Weakness. Denies: Chest Pain, Cough, Headaches, Shortness of Breath chronic back pain Pain Score (Numeric/FACES): 6 - Related Data Allergies Allergy/AdvReac Type Severity Reaction Status Date / Time Penicillins Allergy Severe Anaphylactic Verified 02/13/20 19:54 Shock Home Meds: Home Meds Albuterol Sulfate [Albuterol Sulfate Hfa] 2 puff IH Q4H #1 hfa.aer.ad 12/01/19 [Rx] Citalopram [Citalopram HBr] 40 mg PO DAILY #60 tablet 12/01/19 [Rx] Docusate Sodium [Colace] 100 mg PO DAILY #30 cap 12/01/19 [Rx] Folic Acid 1 mg PO DAILY #30 tablet 12/01/19 [Rx] Melatonin 5 mg PO BEDTIME #30 capsule 12/01/19 [Rx] Multivitamin with Minerals [Multiple Vitamin] 1 tab PO DAILY #30 tablet 12/01/19 [Rx] PHENobarbitaL [Phenobarbital] 97.2 mg PO BID #60 tablet 12/01/19 [Rx] Tamsulosin HCl 0.4 mg PO DAILY #30 capsule 12/01/19 [Rx] Thiamine HCl [Vitamin B-1] 100 mg PO DAILY #30 tablet 12/01/19 [Rx] cloNIDine HCL [Clonidine HCl] 0.1 mg PO BID #60 tablet 12/01/19 [Rx] traZODone HCl [Trazodone HCl] 150 mg PO BEDTIME #30 tablet 12/01/19 [Rx] Phenytoin 100 mg PO BID 12/21/19 [History] Losartan [Cozaar] 25 mg PO DAILY 02/13/20 [History] hydrOXYzine HCL [hydrOXYzine] 25 mg PO BID 02/13/20 [History] Past Medical History HEENT History: Reports: Cataract, Impaired Vision, Macular Degeneration Cardiovascular History: Reports: Blood Clots/VTE/DVT, CAD, Heart Failure, Hypertension, SOB on Exertion, Syncope Respiratory History: Reports: COPD, PE, SOB, Other (See Below) Other Respiratory History: calcified pleural plaque on chest x-ray. Mesothelioma of both lungs Gastrointestinal History: Reports: Cholelithiasis, Chronic Constipation, GERD Genitourinary History: Reports: BPH, Renal Disease, Other (See Below) Other Genitourinary History: recent kidney function issue but undiagnoised at this time Musculoskeletal History: Reports: Back Pain, Chronic, Fracture, Osteoporosis, Other (See Below) Other Musculoskeletal History: has metal in left hand from [place] during [place];. shattered pelvis; multiple compression fractures Neurological History: Reports: Neuropathy, Peripheral, Seizure Psychiatric History: Reports: Addiction, Depression, Eating Disorders, Suicide Attempt Other Psychiatric History: Malnutrition due to inability to swallow. Insomnia Endocrine/Metabolic History: Reports: Other (See Below) Other Endocrine/Metabolic History: recent elevated blood sugars, undiagnoised. thyroid cancer, failed to go to surgery on 09/01/16 Hematologic History: Reports: Anticoagulation Therapy Oncologic (Cancer) History: Reports: Lung, Thyroid Other Oncologic History: s/s of mesotheleoma - Infectious Disease History Infectious Disease History: Reports: Chicken Pox, Measles, Mumps - Past Surgical History Head Surgeries/Procedures: Reports: None HEENT Surgical History: Reports: Adenoidectomy, Cataract Surgery, Tonsillectomy Cardiovascular Surgical History: Reports: None Respiratory Surgical History: Reports: None GI Surgical History: Reports: Cholecystectomy, EGD, Esophageal Dilatation Male Surgical History: Reports: None Endocrine Surgical History: Reports: Thyroid Biopsy Neurological Surgical History: Reports: Spinal Fusion Musculoskeletal Surgical History: Reports: None Oncologic Surgical History: Reports: None Dermatological Surgical History: Reports: None Social & Family History - Family History Family Medical History: Noncontributory - Caffeine Use Caffeine Use: Reports: Coffee Caffeine Use Comment: unknown, patient has difficulty answering questions. - Living Situation & Occupation Living situation: Reports: , with Family Occupation: Disabled ED ROS GENERAL - Review of Systems Review Of Systems: See Below Constitutional: Reports: Malaise. Denies: Fever, Chills HEENT: Denies: Vision Change Respiratory: Denies: Shortness of Breath Cardiovascular: Denies: Chest Pain GI/Abdominal: Denies: Nausea, Vomiting Musculoskeletal: Reports: Neck Pain, Back Pain Skin: Reports: Bruising (Numerous bruises on his extremities in various stages of healing) Neurological: Reports: Confusion (Mild confusion) ED EXAM, BEHAVIORAL HEALTH - Physical Exam Exam: See Below Exam Limited By: Intoxication General Appearance: Alert (Tired but easily arousable, answering questions but tends to fall asleep if left alone) Head: Atraumatic Neck: Supple Respiratory/Chest: No Respiratory Distress, Lungs Clear Cardiovascular: Regular Rate, Rhythm GI/Abdominal: Soft, Non-Tender Extremities: No: Pedal Edema Neurological: Alert, No Motor/Sensory Deficits, Oriented x 3 Psychiatric: Flat Affect Skin Exam: Warm, Dry COURSE, BEHAVIORAL HEALTH COMP - Course Vital Signs: Last Vital Signs Temp 96.8 F L 02/13/20 20:31 Pulse 97 02/13/20 20:31 Resp 16 02/13/20 20:31 BP 146/66 H 02/13/20 20:31 Pulse Ox 93 L 02/13/20 20:31 Orders, Labs, Meds: Laboratory Tests 02/13/20 02/13/20 02/13/20 Range/Units 19:56 19:56 19:56 WBC 9.6 (4.5-11.0) K/uL RBC 4.30 (4.30-5.90) M/uL Hgb 14.3 (12.0-15.0) g/dL Hct 42.1 (40.0-54.0) % MCV 98 (80-98) fL MCH 33 H (27-31) pg MCHC 34 (32-36) % Plt Count 233 (150-400) K/uL Neut % (Auto) 52 (36-66) % Lymph % (Auto) 29 (24-44) % Beckham % (Auto) 16 H (2-6) % Eos % (Auto) 2 (2-4) % Baso % (Auto) 2 H (0-1) % Sodium 147 (140-148) mmol/L Potassium 2.9 L* (3.6-5.2) mmol/L Chloride 106 (100-108) mmol/L Carbon Dioxide 30 (21-32) mmol/L Anion Gap 13.9 (5.0-14.0) mmol/L BUN 5 L (7-18) mg/dL Creatinine 0.8 (0.8-1.3) mg/dL Est Cr Clr Drug Dosing 74.82 mL/min Estimated GFR (MDRD) > 60 (>60) Glucose 122 H (74-106) mg/dL Calcium 7.7 L (8.5-10.1) mg/dL Ethyl Alcohol 259 mg/dL Medications Discontinued Medications Generic Name Dose Route Start Last Admin Trade Name Freq PRN Reason Stop Dose Admin Hydroxyzine HCl 25 mg 02/14/20 00:56 02/14/20 01:04 Atarax PO 02/14/20 00:57 25 mg ONETIME ONE Administration Sodium Chloride 1,000 mls @ 250 mls/hr 02/13/20 20:00 02/13/20 20:01 Normal Saline IV 250 mls/hr ASDIRECTED BRITTANY Administration Potassium Chloride 20 meq/ 100 mls @ 50 mls/hr 02/13/20 20:18 02/13/20 20:37 Premix IV 02/13/20 22:17 50 mls/hr ONETIME ONE Administration Lidocaine HCl 2 ml 02/13/20 20:28 02/13/20 20:38 Xylocaine-Mpf 1% INJECT 02/13/20 20:29 2 ml ONETIME ONE Administration Trazodone HCl 150 mg 02/14/20 00:55 02/14/20 01:04 Trazodone PO 02/14/20 00:56 150 mg ONETIME ONE Administration Re-Assessment/Re-Exam: CBC is normal, EtOH is 0.259. Potassium is only 2.9 which is surprising as it was 3.4 yesterday, 20 mEq of IV potassium was given along with his IV fluids. Patient slept soundly in the emergency room awaiting transfer, had no complaints and was easily arousable and answer questions. Continued to be weak but is also intoxicated. Patient was graciously accepted at [facility]. He was transferred by EMS. Departure - Departure Time of Disposition: 01:23 Disposition: DC/Tfer to Other 70 Clinical Impression: Frequent falls Alcohol intoxication Qualifiers: Complication of substance-induced condition: with unspecified complication Qualified Code(s): F10.929 - Alcohol use, unspecified with intoxication, unspecified - Discharge Information Referrals: PCP,None [Primary Care Provider] - Forms: ED Department Discharge Care Plan Goals: Patient will be transferred to [facility] for inpatient treatment of chronic alcoholism, as per police commitment order. Continue his same medications. Sepsis Event Note (ED) - Focused Exam Vital Signs: Vital Signs Temp Pulse Resp BP Pulse Ox 02/13/20 20:31 96.8 F L 97 16 146/66 H 93 L 02/13/20 20:27 96.8 F L 97 16 146/66 H 93 L
[2020-02-13] MEDS ORDERED: Potassium Chloride 20 MEQ in Premix Bag 1 BAG IV ONE (20:18)
[2020-02-13 20:29] VITALS: BP 146/66; PULSE 97
[2020-02-13] MEDS ORDERED: Ketorolac 30 MG/ML SDV IVPUSH ONE (21:04)
[2020-02-14] MEDS ORDERED: traZODone 50 MG Tab PO ONE (00:55)
[2020-02-14] MEDS ORDERED: hydrOXYzine HCl 25 MG Tab PO ONE (00:56)
== END 2020-02-14 01:20 | disposition other institution (70) ==
LOC: JP.ED 19:42
DX: F10.129 Alcohol abuse with intoxication, unspecified (principal); R29.6 Repeated falls; Y90.8 Blood alcohol level of 240 mg/100 ml or more; I11.0 Hypertensive heart disease with heart failure; I50.9 Heart failure, unspecified; I25.10 Atherosclerotic heart disease of native coronary artery without angina pectoris; J44.9 Chronic obstructive pulmonary disease, unspecified; F32.9 Major depressive disorder, single episode, unspecified; R41.0 Disorientation, unspecified; Z79.01 Long term (current) use of anticoagulants; Z79.899 Other long term (current) drug therapy; Z88.0 Allergy status to penicillin; G89.29 Other chronic pain; M54.5 Low back pain
CPT/HCPCS: 36415; 80048; 80307; 85025; 96361; 96365; 96366; 96372; 99283; 99285; A9270; J1885; J2001; J2060; J3480; J7030

== ENCOUNTER 2020-02-22 20:29 | Emergency (ER) | payer MEDICARE, MEDICAID ==
[2020-02-22] MEDS ORDERED: Acetaminophen/oxyCODONE 325-5 MG Tab PO STA (20:40)
[2020-02-22 20:43] VITALS: BP 162/75; PULSE 97
--- NOTE | 2020-02-22 20:49 | EDM.PDOC ---
ED HPI GENERAL MEDICAL PROBLEM - General Chief Complaint: Drug or Alcohol Abuse Stated Complaint: MEDICAL VIA [facility] Time Seen by Provider: 02/22/20 20:35 Source of Information: Reports: Patient, EMS, Old Records, RN History Limitations: Reports: No Limitations - History of Present Illness INITIAL COMMENTS - FREE TEXT/NARRATIVE: 69 yo male frequent visitor to the ER apparently fell in his apartment today while intoxicated. Neighbors found him bloody and lying on his floor and called EMS. Dereck complains of rib and low back pain primarily. He does not remember falling. He lives alone. Does have a seizure hx. Claims he is not drinking heavily any longer. Onset: Today, Sudden Onset Date: 02/22/20 Duration: Hour(s): (unknown exact duration), Constant Location: Reports: Chest, Back (low) Quality: Reports: Sharp, Stabbing Severity: Moderate Improves with: Reports: Rest Worsens with: Reports: Movement Context: Reports: Trauma Associated Symptoms: Reports: No Other Symptoms Treatments FLASK CARRIER: Reports: Other (see below) (none) Middle Back Pain Score (Numeric/FACES): 8 - Related Data Allergies Allergy/AdvReac Type Severity Reaction Status Date / Time Penicillins Allergy Severe Anaphylactic Verified 02/13/20 19:54 Shock Home Meds: Home Meds Albuterol Sulfate [Albuterol Sulfate Hfa] 2 puff IH Q4H #1 hfa.aer.ad 12/01/19 [Rx] Docusate Sodium [Colace] 100 mg PO DAILY #30 cap 12/01/19 [Rx] Folic Acid 1 mg PO DAILY #30 tablet 12/01/19 [Rx] Melatonin 5 mg PO BEDTIME #30 capsule 12/01/19 [Rx] Multivitamin with Minerals [Multiple Vitamin] 1 tab PO DAILY #30 tablet 12/01/19 [Rx] PHENobarbitaL [Phenobarbital] 97.2 mg PO BID #60 tablet 12/01/19 [Rx] Tamsulosin HCl 0.4 mg PO DAILY #30 capsule 12/01/19 [Rx] Thiamine HCl [Vitamin B-1] 100 mg PO DAILY #30 tablet 12/01/19 [Rx] cloNIDine HCL [Clonidine HCl] 0.1 mg PO BID #60 tablet 12/01/19 [Rx] traZODone HCl [Trazodone HCl] 150 mg PO BEDTIME #30 tablet 12/01/19 [Rx] Phenytoin 200 mg PO BID 12/21/19 [History] Losartan [Cozaar] 50 mg PO DAILY 02/13/20 [History] hydrOXYzine HCL [hydrOXYzine] 25 mg PO BID 02/13/20 [History] Citalopram [Citalopram HBr] 20 mg PO DAILY 02/22/20 [History] Pantoprazole Sodium [Protonix] 1 tab PO DAILY 02/22/20 [History] Past Medical History HEENT History: Reports: Cataract, Impaired Vision, Macular Degeneration Cardiovascular History: Reports: Blood Clots/VTE/DVT, CAD, Heart Failure, Hypertension, SOB on Exertion, Syncope Respiratory History: Reports: COPD, PE, SOB, Other (See Below) Other Respiratory History: calcified pleural plaque on chest x-ray. Mesothelioma of both lungs Gastrointestinal History: Reports: Cholelithiasis, Chronic Constipation, GERD Genitourinary History: Reports: BPH, Renal Disease, Other (See Below) Other Genitourinary History: recent kidney function issue but undiagnoised at this time Musculoskeletal History: Reports: Back Pain, Chronic, Fracture, Osteoporosis, Other (See Below) Other Musculoskeletal History: has metal in left hand from [employer] during [place] war;. shattered pelvis; multiple compression fractures Neurological History: Reports: Neuropathy, Peripheral, Seizure Psychiatric History: Reports: Addiction, Depression, Eating Disorders, Suicide Attempt Other Psychiatric History: Malnutrition due to inability to swallow. Insomnia Endocrine/Metabolic History: Reports: Other (See Below) Other Endocrine/Metabolic History: recent elevated blood sugars, undiagnoised. thyroid cancer, failed to go to surgery on 09/01/16 Hematologic History: Reports: Anticoagulation Therapy Oncologic (Cancer) History: Reports: Lung, Thyroid Other Oncologic History: s/s of mesotheleoma - Infectious Disease History Infectious Disease History: Reports: Chicken Pox, Measles, Mumps - Past Surgical History Head Surgeries/Procedures: Reports: None HEENT Surgical History: Reports: Adenoidectomy, Cataract Surgery, Tonsillectomy Cardiovascular Surgical History: Reports: None Respiratory Surgical History: Reports: None GI Surgical History: Reports: Cholecystectomy, EGD, Esophageal Dilatation Male Surgical History: Reports: None Endocrine Surgical History: Reports: Thyroid Biopsy Neurological Surgical History: Reports: Spinal Fusion Musculoskeletal Surgical History: Reports: None Oncologic Surgical History: Reports: None Dermatological Surgical History: Reports: None Social & Family History - Family History Family Medical History: Noncontributory - Caffeine Use Caffeine Use: Reports: Coffee Caffeine Use Comment: unknown, patient has difficulty answering questions. - Living Situation & Occupation Living situation: Reports: , with Family Occupation: Disabled Review of Systems - Review of Systems Review Of Systems: See Below Constitutional: Reports: No Symptoms Eyes: Reports: No Symptoms Ears: Reports: No Symptoms Nose: Reports: No Symptoms Mouth/Throat: Reports: No Symptoms Respiratory: Reports: No Symptoms Cardiovascular: Reports: No Symptoms GI/Abdominal: Reports: No Symptoms Genitourinary: Reports: No Symptoms Musculoskeletal: Reports: Back Pain (low), Other (rib pain) Skin: Reports: Wound (abrasions scattered. L judaism area superficial flap laceration. ) Neurological: Reports: No Symptoms Psychiatric: Reports: No Symptoms ED EXAM, GENERAL - Physical Exam Exam: See Below Exam Limited By: No Limitations General Appearance: Alert, WD/WN, No Apparent Distress Eye Exam: Bilateral Eye: Normal Inspection, PERRL Ears: Normal External Exam, Normal Canal, Hearing Grossly Normal, Normal TMs Ear Exam: Bilateral Ear: Auricle Normal, Canal Normal, TM normal Nose: Normal Inspection, No Blood Throat/Mouth: Normal Inspection, Normal Lips, Normal Oropharynx, Normal Voice, No Airway Compromise Head: Atraumatic, Normocephalic Neck: Normal Inspection, Supple, Non-Tender Respiratory/Chest: No Respiratory Distress, Lungs Clear, Normal Breath Sounds, No Accessory Muscle Use, Other (rib pain with breathing/palpation, no crepitus.) Cardiovascular: Regular Rate, Rhythm, No Edema GI/Abdominal: Normal Bowel Sounds, Soft, Non-Tender, No Distention Back Exam: Normal Inspection, Vertebral Tenderness (lumbar) Extremities: Normal Inspection, Normal Range of Motion, Non-Tender, No Pedal Edema Neurological: Alert, Oriented, CN II-XII Intact, Normal Cognition, No Motor/Sensory Deficits Psychiatric: Normal Affect, Normal Mood Skin Exam: Warm, Dry, Normal Color, No Rash, Wound/Incision (scattered abrasions, excoriations, and a L judaism flap laceration(not deep). Bleeding controlled on arrival. ) Course - Vital Signs Text/Narrative:: Dr. Wills here and will admit, not safe to send home. Last Recorded V/S: Last Vital Signs Temp 36.2 C 02/22/20 20:59 Pulse 97 02/22/20 20:59 Resp 16 02/22/20 20:59 BP 162/75 H 02/22/20 20:59 Pulse Ox 98 02/22/20 20:59 - Orders/Labs/Meds Orders: Active Orders 24 hr Category Date Time Status Chest 2V [CR] Stat Exams 02/22/20 20:40 Ordered Lumbar Spine 2 or 3V [CR] Stat Exams 02/22/20 20:40 Ordered Labs: Laboratory Tests 02/22/20 Range/Units 20:55 Ethyl Alcohol 176 mg/dL Meds: Medications Discontinued Medications Generic Name Dose Route Start Last Admin Trade Name Freq PRN Reason Stop Dose Admin Oxycodone/Acetaminophen 1 tab 02/22/20 20:40 02/22/20 20:49 Percocet 325-5 Mg PO 02/22/20 20:41 1 tab ONETIME STA Administration - Radiology Interpretation Free Text/Narrative:: lumbar spine X-ray-neg Chest X-ray-neg Departure - Departure Time of Disposition: 21:45 Disposition: Refer to Observation Condition: Fair Clinical Impression: Fall in elderly patient, Abrasions of multiple sites, Multiple contusions Alcohol intoxication Qualifiers: Complication of substance-induced condition: with unspecified complication Qualified Code(s): F10.929 - Alcohol use, unspecified with intoxication, unspecified - Discharge Information *PRESCRIPTION DRUG MONITORING PROGRAM REVIEWED*: No *COPY OF PRESCRIPTION DRUG MONITORING REPORT IN PATIENT MONSE: No Referrals: PCP,None [Primary Care Provider] - Forms: ED Department Discharge Sepsis Event Note (ED) - Focused Exam Vital Signs: Vital Signs Temp Pulse Resp BP Pulse Ox 02/22/20 20:59 36.2 C 97 16 162/75 H 98 02/22/20 20:41 36.2 C 97 16 162/75 H 98 - My Orders Last 24 Hours: My Active Orders 02/22/20 20:40 Chest 2V [CR] Stat Lumbar Spine 2 or 3V [CR] Stat - Assessment/Plan Last 24 Hours: My Active Orders 02/22/20 20:40 Chest 2V [CR] Stat Lumbar Spine 2 or 3V [CR] Stat
--- NOTE | 2020-02-23 09:13 | CR ---
CHEST: 2 view CLINICAL HISTORY:Fall COMPARISON:CT 11/23/2019 FINDINGS: Heart size is borderline enlarged. Pulmonary vascularity is normal. There is mild generalized interstitial prominence. Previously seen bibasilar infiltrates are resolved. There is some scarring at the left lung base. There are atherosclerotic changes in the aorta. Lungs are mildly hyperaerated. Patient has had multiple vertebroplasty is in the mid and lower thoracic spine. Impression: No acute cardiopulmonary process Borderline cardiomegaly. Mild chronic interstitial changes Chest 2V, Lumbar Spine 2 or 3V CLINICAL HISTORY: Fall FINDINGS: There is a old compression deformity of L3 with previous vertebroplasty attempt. Vertebroplasty's have been performed on T12 T10 and T9. Alignment is maintained. There is some osteoarthritis in the lower lumbar facets. There is a linear lucency across the left L2 transverse process. This could be nondisplaced fracture or superimposed lucency. There is also vague lucency at transverse process of L3 of uncertain etiology. IMPRESSION: Old compression fracture L3 Linear lucencies of the L2 and L3 transverse processes may represent nondisplaced fractures Osteoarthritis in the lower lumbar facets
== END 2020-02-22 22:38 ==
LOC: JP.ED 20:29
DX: S01.81XA Laceration without foreign body of other part of head, initial encounter (principal); S30.0XXA Contusion of lower back and pelvis, initial encounter; S20.212A Contusion of left front wall of thorax, initial encounter; F10.920 Alcohol use, unspecified with intoxication, uncomplicated; I25.10 Atherosclerotic heart disease of native coronary artery without angina pectoris; I11.0 Hypertensive heart disease with heart failure; I50.9 Heart failure, unspecified; J44.9 Chronic obstructive pulmonary disease, unspecified; K21.9 Gastro-esophageal reflux disease without esophagitis; F32.9 Major depressive disorder, single episode, unspecified; Z88.0 Allergy status to penicillin; Z79.899 Other long term (current) drug therapy; W19.XXXA Unspecified fall, initial encounter; Y92.039 Unspecified place in apartment as the place of occurrence of the external cause; Y90.6 Blood alcohol level of 120-199 mg/100 ml
CPT/HCPCS: 36415; 71046; 72100; 80307; 99284; A9270

== ENCOUNTER 2020-02-23 04:09 | Emergency (ER) | payer MEDICARE, MEDICAID ==
[2020-02-23] MEDS ORDERED: Haloperidol Lactate 5 MG/ML SDV IM ONE (04:24)
[2020-02-23 04:25] VITALS: BP 134/75; PULSE 77
--- NOTE | 2020-02-23 04:32 | EDM.PDOC ---
<Nathaniel Lange - Last Filed: 02/23/20 04:39> ED HPI GENERAL MEDICAL PROBLEM - General Chief Complaint: Behavioral/Psych Stated Complaint: FALL VIA NORTH Time Seen by Provider: 02/23/20 04:20 Source of Information: Reports: Patient, EMS, Old Records - History of Present Illness INITIAL COMMENTS - FREE TEXT/NARRATIVE: 69 yo male was seen here earlier in this shift after a fall in his home that occurred while intoxicated. He was checked out and found to have only minor injuries, allowed to sober up a bit and discharged. Upon discharge he went home and apparently resumed drinking and fell again. This time he appears to have no new injuries, but is much more intoxicated. 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) (none) - Related Data Allergies Allergy/AdvReac Type Severity Reaction Status Date / Time Penicillins Allergy Severe Anaphylactic Verified 02/23/20 05:22 Shock Home Meds: Home Meds Albuterol Sulfate [Albuterol Sulfate Hfa] 2 puff IH Q4H #1 hfa.aer.ad 12/01/19 [Rx] Docusate Sodium [Colace] 100 mg PO DAILY #30 cap 12/01/19 [Rx] Folic Acid 1 mg PO DAILY #30 tablet 12/01/19 [Rx] Melatonin 5 mg PO BEDTIME #30 capsule 12/01/19 [Rx] Multivitamin with Minerals [Multiple Vitamin] 1 tab PO DAILY #30 tablet 12/01/19 [Rx] PHENobarbitaL [Phenobarbital] 97.2 mg PO BID #60 tablet 12/01/19 [Rx] Tamsulosin HCl 0.4 mg PO DAILY #30 capsule 12/01/19 [Rx] Thiamine HCl [Vitamin B-1] 100 mg PO DAILY #30 tablet 12/01/19 [Rx] cloNIDine HCL [Clonidine HCl] 0.1 mg PO BID #60 tablet 12/01/19 [Rx] traZODone HCl [Trazodone HCl] 150 mg PO BEDTIME #30 tablet 12/01/19 [Rx] Phenytoin 200 mg PO BID 12/21/19 [History] Losartan [Cozaar] 50 mg PO DAILY 02/13/20 [History] hydrOXYzine HCL [hydrOXYzine] 25 mg PO BID 02/13/20 [History] Acetaminophen/HYDROcodone [[place] 325-5 MG] 1 tab PO Q4H PRN #8 tab 02/22/20 [Rx] Citalopram [Citalopram HBr] 20 mg PO DAILY 02/22/20 [History] Pantoprazole Sodium [Protonix] 1 tab PO DAILY 02/22/20 [History] Past Medical History HEENT History: Reports: Cataract, Impaired Vision, Macular Degeneration Cardiovascular History: Reports: Blood Clots/VTE/DVT, CAD, Heart Failure, Hypertension, SOB on Exertion, Syncope Respiratory History: Reports: COPD, PE, SOB, Other (See Below) Other Respiratory History: calcified pleural plaque on chest x-ray. Mesothelioma of both lungs Gastrointestinal History: Reports: Cholelithiasis, Chronic Constipation, GERD Genitourinary History: Reports: BPH, Renal Disease, Other (See Below) Other Genitourinary History: recent kidney function issue but undiagnoised at this time Musculoskeletal History: Reports: Back Pain, Chronic, Fracture, Osteoporosis, Other (See Below) Other Musculoskeletal History: has metal in left hand from [employer] [place];. shattered pelvis; multiple compression fractures Neurological History: Reports: Neuropathy, Peripheral, Seizure Psychiatric History: Reports: Addiction, Depression, Eating Disorders, Suicide Attempt Other Psychiatric History: Malnutrition due to inability to swallow. Insomnia Endocrine/Metabolic History: Reports: Other (See Below) Other Endocrine/Metabolic History: recent elevated blood sugars, undiagnoised. thyroid cancer, failed to go to surgery on 09/01/16 Hematologic History: Reports: Anticoagulation Therapy Oncologic (Cancer) History: Reports: Lung, Thyroid Other Oncologic History: s/s of mesotheleoma - Infectious Disease History Infectious Disease History: Reports: Chicken Pox, Measles, Mumps - Past Surgical History Head Surgeries/Procedures: Reports: None HEENT Surgical History: Reports: Adenoidectomy, Cataract Surgery, Tonsillectomy Cardiovascular Surgical History: Reports: None Respiratory Surgical History: Reports: None GI Surgical History: Reports: Cholecystectomy, EGD, Esophageal Dilatation Male Surgical History: Reports: None Endocrine Surgical History: Reports: Thyroid Biopsy Neurological Surgical History: Reports: Spinal Fusion Musculoskeletal Surgical History: Reports: None Oncologic Surgical History: Reports: None Dermatological Surgical History: Reports: None Social & Family History - Family History Family Medical History: Noncontributory - Caffeine Use Caffeine Use: Reports: Coffee Caffeine Use Comment: unknown, patient has difficulty answering questions. - Living Situation & Occupation Living situation: Reports: , with Family Occupation: Disabled ED ROS GENERAL - Review of Systems Review Of Systems: See Below Constitutional: Reports: No Symptoms HEENT: Reports: No Symptoms Respiratory: Reports: No Symptoms Cardiovascular: Reports: No Symptoms GI/Abdominal: Reports: No Symptoms : Reports: No Symptoms Musculoskeletal: Reports: No Symptoms Skin: Reports: Other (old wounds from his last fall) Neurological: Reports: Other (alcohol intoxication) Psychiatric: Reports: Other (uncooperative) ED EXAM, GENERAL - Physical Exam Exam: See Below Exam Limited By: No Limitations General Appearance: Alert, No Apparent Distress, Thin Eye Exam: Bilateral Eye: Normal Inspection, Nystagmus Ears: Normal External Exam, Normal Canal, Hearing Grossly Normal Ear Exam: Bilateral Ear: Auricle Normal, Canal Normal Nose: Normal Inspection, No Blood Throat/Mouth: Normal Inspection, Normal Lips, Normal Oropharynx, Normal Voice, No Airway Compromise Head: Atraumatic, Normocephalic Neck: Normal Inspection Respiratory/Chest: No Respiratory Distress, Lungs Clear, Normal Breath Sounds, No Accessory Muscle Use Cardiovascular: Regular Rate, Rhythm, No Edema GI/Abdominal: Normal Bowel Sounds, Soft, Non-Tender, No Distention Extremities: Normal Inspection Neurological: Alert, CN II-XII Intact, No Motor/Sensory Deficits, Other (alcohol intoxication) Psychiatric: Normal Affect, Normal Mood Skin Exam: Warm, Dry, Normal Color, No Rash, Wound/Incision (from his earlier fall) Course - Re-Assessments/Exams Free Text/Narrative Re-Assessment/Exam: 02/23/20 04:34 Haldol 5 mg IM given because he kept trying to get up and was at high fall risk due to intoxication. We also gave him his own phenobarbitol and Dilantin that he was due for. 02/23/20 04:39 Departure - Departure Disposition: Home, Self-Care 01 Condition: Fair Clinical Impression: Alcohol intoxication Qualifiers: Complication of substance-induced condition: with unspecified complication Qualified Code(s): F10.929 - Alcohol use, unspecified with intoxication, unspecified - Discharge Information Instructions: Alcohol Use Disorder Referrals: PCP,None [Primary Care Provider] - Forms: ED Department Discharge Additional Instructions: Please followup with your primary care provider in 3-5 days if not better, please call return to the emergency department with worsening of symptoms. <OfficerTj - Last Filed: 02/23/20 11:21> Course - Vital Signs Last Recorded V/S: Last Vital Signs Temp 97 F 02/23/20 05:20 Pulse 77 02/23/20 05:20 Resp 16 02/23/20 05:20 BP 134/75 02/23/20 05:20 Pulse Ox 95 02/23/20 05:20 - Orders/Labs/Meds Labs: Laboratory Tests 02/23/20 Range/Units 04:45 Ethyl Alcohol 214 mg/dL Meds: Medications Discontinued Medications Generic Name Dose Route Start Last Admin Trade Name Tommyq PRN Reason Stop Dose Admin Diphenhydramine HCl 50 mg 02/23/20 04:36 02/23/20 04:50 Benadryl IM 02/23/20 04:37 50 mg ONETIME ONE Administration Haloperidol Lactate 5 mg 02/23/20 04:24 02/23/20 04:33 Haldol IM 02/23/20 04:25 5 mg ONETIME ONE Administration Lorazepam 1 mg 02/23/20 04:35 02/23/20 04:50 Ativan IM 02/23/20 04:36 1 mg ONETIME ONE Administration - Re-Assessments/Exams Free Text/Narrative Re-Assessment/Exam: 02/23/20 11:20 equipment services associate was contacted they did come and evaluate him offered him a variety of services of which he refused everything, therefore he will be discharged home Departure - Departure Time of Disposition: 11:21 Condition: Poor Sepsis Event Note (ED) - Focused Exam Vital Signs: Vital Signs Temp Pulse Resp BP Pulse Ox 02/23/20 05:20 97 F 77 16 134/75 95 02/23/20 04:24 97 F 77 16 134/75 95 - Assessment/Plan Plan: Assessment Acuity = acute Site and laterality = alcohol abuse and intoxication Etiology = EtOH Manifestations = antisocial behavior Location of injury = Home Lab values = alcohol 214 Plan Discharged home This note was dictated using [employer] voice recognition software please call with any questions on syntax or grammar.
[2020-02-23] MEDS ORDERED: LORazepam 2 MG/ML SDV IM ONE (04:35)
[2020-02-23] MEDS ORDERED: diphenhydrAMINE 50 MG/ML SDV IM ONE (04:36)
== END 2020-02-23 11:40 | disposition home or self-care (01) ==
LOC: JP.ED 04:09
DX: F10.129 Alcohol abuse with intoxication, unspecified (principal); I25.10 Atherosclerotic heart disease of native coronary artery without angina pectoris; I11.0 Hypertensive heart disease with heart failure; I50.9 Heart failure, unspecified; J44.9 Chronic obstructive pulmonary disease, unspecified; K21.9 Gastro-esophageal reflux disease without esophagitis; G62.9 Polyneuropathy, unspecified; F32.9 Major depressive disorder, single episode, unspecified; R56.9 Unspecified convulsions; Z88.0 Allergy status to penicillin; Z79.899 Other long term (current) drug therapy
CPT/HCPCS: 36415; 80307; 96372; 99284; J1200; J1630; J2060

== ENCOUNTER 2020-02-25 17:39 | Emergency (ER) | payer MEDICARE, MEDICAID ==
--- NOTE | 2020-02-25 17:44 | EDM.PDOC ---
<OfficerTj - Last Filed: 02/25/20 17:42> ED HPI GENERAL MEDICAL PROBLEM - General Chief Complaint: Chest Pain Stated Complaint: MEDICAL VIA NORTH Time Seen by Provider: 02/25/20 17:41 Source of Information: Reports: Patient, RN Notes Reviewed History Limitations: Reports: No Limitations - History of Present Illness INITIAL COMMENTS - FREE TEXT/NARRATIVE: 69-year-old gentleman presents emergency department a complaint of chest pain, he states the chest pain started about 3 hours ago he does feel short of breath no nausea vomiting no diaphoresis. Pain is quite intense it is difficult for him to answer questions so review of systems is limited - Related Data Allergies Allergy/AdvReac Type Severity Reaction Status Date / Time Penicillins Allergy Severe Anaphylactic Verified 02/25/20 18:23 Shock Home Meds: Home Meds Albuterol Sulfate [Albuterol Sulfate Hfa] 2 puff IH Q4H #1 hfa.aer.ad 12/01/19 [Rx] Docusate Sodium [Colace] 100 mg PO DAILY #30 cap 12/01/19 [Rx] Folic Acid 1 mg PO DAILY #30 tablet 12/01/19 [Rx] Melatonin 5 mg PO BEDTIME #30 capsule 12/01/19 [Rx] Multivitamin with Minerals [Multiple Vitamin] 1 tab PO DAILY #30 tablet 12/01/19 [Rx] PHENobarbitaL [Phenobarbital] 97.2 mg PO BID #60 tablet 12/01/19 [Rx] Tamsulosin HCl 0.4 mg PO DAILY #30 capsule 12/01/19 [Rx] Thiamine HCl [Vitamin B-1] 100 mg PO DAILY #30 tablet 12/01/19 [Rx] cloNIDine HCL [Clonidine HCl] 0.1 mg PO BID #60 tablet 12/01/19 [Rx] traZODone HCl [Trazodone HCl] 150 mg PO BEDTIME #30 tablet 12/01/19 [Rx] Phenytoin 200 mg PO BID 12/21/19 [History] Losartan [Cozaar] 50 mg PO DAILY 02/13/20 [History] hydrOXYzine HCL [hydrOXYzine] 25 mg PO BID 02/13/20 [History] Acetaminophen/HYDROcodone [[place] 325-5 MG] 1 tab PO Q4H PRN #8 tab 02/22/20 [Rx] Citalopram [Citalopram HBr] 20 mg PO DAILY 02/22/20 [History] Pantoprazole Sodium [Protonix] 1 tab PO DAILY 02/22/20 [History] Past Medical History HEENT History: Reports: Cataract, Impaired Vision, Macular Degeneration Cardiovascular History: Reports: Blood Clots/VTE/DVT, CAD, Heart Failure, Hypertension, SOB on Exertion, Syncope Respiratory History: Reports: COPD, PE, SOB, Other (See Below) Other Respiratory History: calcified pleural plaque on chest x-ray. Mesothelioma of both lungs Gastrointestinal History: Reports: Cholelithiasis, Chronic Constipation, GERD Genitourinary History: Reports: BPH, Renal Disease, Other (See Below) Other Genitourinary History: recent kidney function issue but undiagnoised at this time Musculoskeletal History: Reports: Back Pain, Chronic, Fracture, Osteoporosis, Other (See Below) Other Musculoskeletal History: has metal in left hand from [employer] during [place];. shattered pelvis; multiple compression fractures Neurological History: Reports: Neuropathy, Peripheral, Seizure Psychiatric History: Reports: Addiction, Depression, Eating Disorders, Suicide Attempt Other Psychiatric History: Malnutrition due to inability to swallow. Insomnia Endocrine/Metabolic History: Reports: Other (See Below) Other Endocrine/Metabolic History: recent elevated blood sugars, undiagnoised. thyroid cancer, failed to go to surgery on 09/01/16 Hematologic History: Reports: Anticoagulation Therapy Oncologic (Cancer) History: Reports: Lung, Thyroid Other Oncologic History: s/s of mesotheleoma - Infectious Disease History Infectious Disease History: Reports: Chicken Pox, Measles, Mumps - Past Surgical History Head Surgeries/Procedures: Reports: None HEENT Surgical History: Reports: Adenoidectomy, Cataract Surgery, Tonsillectomy Cardiovascular Surgical History: Reports: None Respiratory Surgical History: Reports: None GI Surgical History: Reports: Cholecystectomy, EGD, Esophageal Dilatation Male Surgical History: Reports: None Endocrine Surgical History: Reports: Thyroid Biopsy Neurological Surgical History: Reports: Spinal Fusion Musculoskeletal Surgical History: Reports: None Oncologic Surgical History: Reports: None Dermatological Surgical History: Reports: None Social & Family History - Family History Family Medical History: Noncontributory - Caffeine Use Caffeine Use: Reports: Coffee, Soda Caffeine Use Comment: unknown, patient has difficulty answering questions. - Living Situation & Occupation Living situation: Reports: , with Family Occupation: Disabled ED ROS GENERAL - Review of Systems Review Of Systems: Unable To Obtain Reason Not Obtained: Distress secondary to chest pain ED EXAM, GENERAL - Physical Exam Exam: See Below Exam Limited By: No Limitations General Appearance: Alert, Moderate Distress Head: Facial Swelling, Facial Tenderness Neck: Normal Inspection, Supple, Non-Tender, Full Range of Motion Respiratory/Chest: No Respiratory Distress, Lungs Clear, Normal Breath Sounds, No Accessory Muscle Use, Chest Non-Tender Cardiovascular: Regular Rate, Rhythm, No Murmur GI/Abdominal: Soft, Non-Tender Departure - Departure Disposition: Home, Self-Care 01 Clinical Impression: Sternal pain, Chronic alcohol abuse Alcohol intoxication Qualifiers: Complication of substance-induced condition: with unspecified complication Qualified Code(s): F10.929 - Alcohol use, unspecified with intoxication, unspecified Referrals: PCP,None [Primary Care Provider] - Forms: ED Department Discharge Additional Instructions: Take ibuprofen 400 mg every 6 hrs with food for sternal pain. See your doctor for recheck QUINN. No alcohol!! No smoking!! <Nathaniel Lange - Last Filed: 02/25/20 19:51> ED HPI GENERAL MEDICAL PROBLEM Chest Pain Score (Numeric/FACES): 10 ED EXAM, GENERAL - Physical Exam Respiratory/Chest: Other (was tender over sternum on my exam and he says this is where he has pain with deep breathing or coughing. ) EKG INTERPRETATION EKG Date: 02/25/20 Time: 17:35 Rhythm: NSR Rate (Beats/Min): 117 [place]: Normal P-Wave: Present QRS: Normal ST-T: Normal QT: Prolonged Comparison: Change From Previous EKG (rate has increased significantly) Course - Vital Signs Last Recorded V/S: Last Vital Signs Temp 36.2 C 02/25/20 18:00 Pulse 94 02/25/20 19:25 Resp 12 02/25/20 19:25 BP 160/74 H 02/25/20 19:25 Pulse Ox 89 L 02/25/20 19:25 - Orders/Labs/Meds Orders: Active Orders 24 hr Category Date Time Status Cardiac Monitoring [RC] .As Directed Care 02/25/20 17:41 Active EKG Documentation Completion [RC] ASDIRECTED Care 02/25/20 17:42 Active Peripheral IV Care [RC] . DIRECTED Care 02/25/20 17:42 Active Ang Chest [CT] Stat Exams 02/25/20 18:22 Taken Chest 1V Frontal [CR] Stat Exams 02/25/20 17:42 Taken Iopamidol [Isovue-370 (76%)] Med 02/25/20 18:30 Active 100 ml IV . DIRECTED Morphine Med 02/25/20 17:41 Active 4 mg IVPUSH Q10M PRN Sodium Chloride 0.9% [Normal Saline] 1,000 ml Med 02/25/20 17:45 Active IV ASDIRECTED Sodium Chloride 0.9% [Normal Saline] 100 ml Med 02/25/20 18:30 Active IV ASDIRECTED Sodium Chloride 0.9% [Saline Flush] Med 02/25/20 17:41 Active 10 ml FLUSH ASDIRECTED PRN Peripheral IV Insertion Adult [OM.PC] Stat Oth 02/25/20 17:41 Ordered EKG 12 Lead [EK] Stat Ther 02/25/20 17:42 Ordered Medication Orders Sodium Chloride (Normal Saline) 1,000 mls @ 999 mls/hr IV ASDIRECTED BRITTANY Last Admin: 02/25/20 17:50 Dose: 999 mls/hr Documented by: ELIZABETH Sodium Chloride (Normal Saline) 100 mls @ 4 mls/sec IV ASDIRECTED BRITTANY Last Admin: 02/25/20 18:49 Dose: 4 mls/sec Documented by: LESLY Iopamidol (Isovue-370 (76%)) 100 ml IV . DIRECTED BRITTANY Last Admin: 02/25/20 18:49 Dose: 100 ml Documented by: LESLY Morphine Sulfate (Morphine) 4 mg IVPUSH Q10M PRN PRN Reason: Chest Pain Stop: 02/26/20 17:41 Last Admin: 02/25/20 18:01 Dose: 4 mg Documented by: Admin: 02/25/20 17:47 Dose: 4 mg Documented by: ELIZABETH Sodium Chloride (Saline Flush) 10 ml FLUSH ASDIRECTED PRN PRN Reason: Keep Vein Open Last Admin: 02/25/20 18:49 Dose: 10 ml Documented by: Admin: 02/25/20 17:58 Dose: 10 ml Documented by: ELIZABETH Labs: Laboratory Tests 02/25/20 02/25/20 02/25/20 Range/Units 17:52 17:52 17:52 WBC 12.4 H (4.5-11.0) K/uL RBC 4.44 (4.30-5.90) M/uL Hgb 14.7 (12.0-15.0) g/dL Hct 43.1 (40.0-54.0) % MCV 97 (80-98) fL MCH 33 H (27-31) pg MCHC 34 (32-36) % Plt Count 228 (150-400) K/uL Neut % (Auto) 75 H (36-66) % Lymph % (Auto) 14 L (24-44) % [place] % (Auto) 10 H (2-6) % Eos % (Auto) 1 L (2-4) % Baso % (Auto) 1 (0-1) % D-Dimer, Quantitative (0.0-400.0) ng/mL Sodium 141 (140-148) mmol/L Potassium 3.6 (3.6-5.2) mmol/L Chloride 101 (100-108) mmol/L Carbon Dioxide 28 (21-32) mmol/L Anion Gap 12.1 (5.0-14.0) mmol/L BUN 10 D (7-18) mg/dL Creatinine 0.7 L (0.8-1.3) mg/dL Est Cr Clr Drug Dosing TNP Estimated GFR (MDRD) > 60 (>60) Glucose 155 H (74-106) mg/dL Calcium 8.0 L (8.5-10.1) mg/dL Total Bilirubin 0.7 D (0.2-1.0) mg/dL AST 72 H (15-37) U/L ALT 36 (12-78) U/L Alkaline Phosphatase 294 H D (46-116) U/L Troponin I < 0.017 (0.000-0.056) ng/mL Total Protein 6.3 L (6.4-8.2) g/dL Albumin 3.1 L (3.4-5.0) g/dL Globulin 3.2 (2.3-3.5) g/dL Albumin/Globulin Ratio 1.0 L (1.2-2.2) Ethyl Alcohol 145 mg/dL 02/25/20 Range/Units 17:52 WBC (4.5-11.0) K/uL RBC (4.30-5.90) M/uL Hgb (12.0-15.0) g/dL Hct (40.0-54.0) % MCV (80-98) fL MCH (27-31) pg MCHC (32-36) % Plt Count (150-400) K/uL Neut % (Auto) (36-66) % Lymph % (Auto) (24-44) % [place] % (Auto) (2-6) % Eos % (Auto) (2-4) % Baso % (Auto) (0-1) % D-Dimer, Quantitative 1780 H (0.0-400.0) ng/mL Sodium (140-148) mmol/L Potassium (3.6-5.2) mmol/L Chloride (100-108) mmol/L Carbon Dioxide (21-32) mmol/L Anion Gap (5.0-14.0) mmol/L BUN (7-18) mg/dL Creatinine (0.8-1.3) mg/dL Est Cr Clr Drug Dosing Estimated GFR (MDRD) (>60) Glucose (74-106) mg/dL Calcium (8.5-10.1) mg/dL Total Bilirubin (0.2-1.0) mg/dL AST (15-37) U/L ALT (12-78) U/L Alkaline Phosphatase (46-116) U/L Troponin I (0.000-0.056) ng/mL Total Protein (6.4-8.2) g/dL Albumin (3.4-5.0) g/dL Globulin (2.3-3.5) g/dL Albumin/Globulin Ratio (1.2-2.2) Ethyl Alcohol mg/dL Meds: Medications Generic Name Dose Route Start Last Admin Trade Name Freq PRN Reason Stop Dose Admin Sodium Chloride 1,000 mls @ 999 mls/hr 02/25/20 17:45 02/25/20 17:50 Normal Saline IV 999 mls/hr ASDIRECTED BRITTANY Administration Sodium Chloride 100 mls @ 4 mls/sec 02/25/20 18:30 02/25/20 18:49 Normal Saline IV 4 mls/sec ASDIRECTED BRITTANY Administration Iopamidol 100 ml 02/25/20 18:30 02/25/20 18:49 Isovue-370 (76%) IV 100 ml . DIRECTED BRITTANY Administration Morphine Sulfate 4 mg 02/25/20 17:41 02/25/20 18:01 Morphine IVPUSH 02/26/20 17:41 4 mg Q10M PRN Administration Chest Pain Sodium Chloride 10 ml 02/25/20 17:41 02/25/20 18:49 Saline Flush FLUSH 10 ml ASDIRECTED PRN Administration Keep Vein Open Discontinued Medications Generic Name Dose Route Start Last Admin Trade Name [place] PRN Reason Stop Dose Admin Ketorolac Tromethamine 30 mg 02/25/20 19:12 02/25/20 19:29 Toradol IVPUSH 02/25/20 19:13 30 mg ONETIME ONE Administration Lorazepam 1 mg 02/25/20 17:47 02/25/20 17:55 Ativan IVPUSH 02/25/20 17:48 1 mg ONETIME ONE Administration - Radiology Interpretation Free Text/Narrative:: CXR-neg angio chest- IMPRESSION: 1. No evidence of pulmonary thromboembolism. 2. Coronary artery disease. Correlate clinically to exclude [place] syndrome. 3. Pulmonary emphysema. Please note that all CT scans at this facility use dose modulation, iterative reconstruction, and/or weight-based dosing when appropriate to reduce radiation dose to as low as reasonably achievable. Dictated by Socorro Salter MD @ Feb 25 2020 7:21PM Departure - Departure Time of Disposition: 19:55 Condition: Fair Sepsis Event Note (ED) - Focused Exam Vital Signs: Vital Signs Temp Pulse Resp BP Pulse Ox 02/25/20 19:25 94 12 160/74 H 89 L 02/25/20 19:05 95 11 L 148/73 H 88 L 02/25/20 18:50 102 H 12 164/78 H 88 L 02/25/20 18:25 95 14 143/72 H 91 L 02/25/20 18:05 110 H 26 H 155/74 H 93 L 02/25/20 18:00 36.2 C 118 H 31 H 156/48 H 95 - My Orders Last 24 Hours: My Active Orders 02/25/20 18:22 Ang Chest [CT] Stat 02/25/20 18:30 Iopamidol [Isovue-370 (76%)] 100 ml IV . DIRECTED Sodium Chloride 0.9% [Normal Saline] 100 ml IV ASDIRECTED - Assessment/Plan Last 24 Hours: My Active Orders 02/25/20 18:22 Ang Chest [CT] Stat 02/25/20 18:30 Iopamidol [Isovue-370 (76%)] 100 ml IV . DIRECTED Sodium Chloride 0.9% [Normal Saline] 100 ml IV ASDIRECTED
[2020-02-25] MEDS ORDERED: Sodium Chloride 0.9% 1,000 ML IV SCH (17:45)
[2020-02-25] MEDS ORDERED: LORazepam 2 MG/ML SDV IVPUSH ONE (17:47)
[2020-02-25] MEDS: Morphine 4 MG/ML Syringe IVPUSH PRN ×2 (17:47→18:01)
[2020-02-25] MEDS: Sodium Chloride 0.9% 10 ML Syringe FLUSH PRN ×2 (17:58→18:49)
[2020-02-25] MEDS ORDERED: Sodium Chloride 0.9% 100 ML IV SCH (18:30)
[2020-02-25] MEDS ORDERED: Iopamidol 755 Mg/ML 100 ML Bottle IV SCH (18:30)
[2020-02-25] MEDS ORDERED: Ketorolac 30 MG/ML SDV IVPUSH ONE (19:12)
[2020-02-25 19:31] VITALS: BP 160/74; PULSE 94
--- NOTE | 2020-02-26 08:19 | CRLCT ---
Final Report: INDICATION: Chest pain, elevated D-dimer COMPARISON: CT chest with contrast 11/23/2019 TECHNIQUE: Contrast enhanced axial CT imaging through the chest, optimized for assessment of the pulmonary arterial tree. 100 mL Isovue 370 contrast agent was administered intravenously. Sagittal and coronal reconstructions are provided. FINDINGS: There is adequate opacification of the pulmonary arterial tree without evidence of thromboembolism. The main pulmonary artery is nondilated. The heart is non enlarged. Focal coronary artery calcification is noted on the left. There is no pericardial effusion. There is normal caliber of the thoracic aorta. Mildly enlarged pretracheal lymph node is nonspecific. Mild emphysematous changes are noted in the lung apices. Subpleural bullous changes are seen in the upper lobes and posterior lower lobes, worse on the right. There is no airspace consolidation, pleural effusion, or pneumothorax. Chronic thoracic vertebral compression deformities are present at multiple levels. There is evidence of prior multilevel vertebroplasty. No significant abnormality is demonstrated in the visualized upper abdomen. Cholecystectomy clips are noted. IMPRESSION: 1. No evidence of pulmonary thromboembolism. 2. Coronary artery disease. Correlate clinically to exclude [place] syndrome. 3. Pulmonary emphysema. Please note that all CT scans at this facility use dose modulation, iterative reconstruction, and/or weight-based dosing when appropriate to reduce radiation dose to as low as reasonably achievable. Dictated by Socorro Salter MD @ Feb 25 2020 7:21PM Signed by: Socorro Salter MD @02/25/2020 7:30:28 PM (Electronic Signature) MTDD
--- NOTE | 2020-02-26 09:21 | CR ---
CHEST: Portable 02/25/2020 at 6:02 PM CLINICAL HISTORY:Chest pain COMPARISON:02/22/2020 FINDINGS: Heart size and pulmonary vascularity are normal. There is mild generalized interstitial prominence. This is similar to prior study. Patient has some pulmonary fibrosis. There are atherosclerotic changes in the aorta. Impression: No acute cardio pelvic process Underlying chronic lung changes with some pulmonary fibrosis
== END 2020-02-25 20:04 | disposition home or self-care (01) ==
LOC: JP.ED 17:39
DX: R07.9 Chest pain, unspecified (principal); F32.9 Major depressive disorder, single episode, unspecified; K21.9 Gastro-esophageal reflux disease without esophagitis; J44.9 Chronic obstructive pulmonary disease, unspecified; F10.129 Alcohol abuse with intoxication, unspecified; R56.9 Unspecified convulsions; I50.9 Heart failure, unspecified; I11.0 Hypertensive heart disease with heart failure; I25.10 Atherosclerotic heart disease of native coronary artery without angina pectoris; Z88.0 Allergy status to penicillin; Z79.899 Other long term (current) drug therapy; Y90.6 Blood alcohol level of 120-199 mg/100 ml
CPT/HCPCS: 36415; 71045; 71045-26; 71275; 80053; 80307; 84484; 85025; 85379; 93005; 93010; 96361; 96374; 96375; 99284; 99285-25; J1885; J2060; J2270; J7030; J7050; Q9967

== ENCOUNTER 2020-03-02 12:27 | Inpatient (IN) | payer MEDICARE, MEDICAID, OTHER ==
[2020-03-02] MEDS ORDERED: Sodium Chloride 0.9% 10 ML Syringe FLUSH PRN (13:01)
[2020-03-02] MEDS ORDERED: LORazepam 2 MG/ML SDV IVPUSH ONE (13:07)
--- NOTE | 2020-03-02 14:18 | CT ---
Head wo Cont, Max Facial Sinus wo Cont CLINICAL HISTORY: Head injury COMPARISON: January 2020 TECHNIQUE: Transverse scans were obtained from the base of the skull through the vertex without IV contrast on a multislice, multidetector CT scanner. Auto dosage reduction and iterative reconstruction techniques employed. FINDINGS: No focal abnormal parenchymal density is identified. There is is some minimal increased density in the CSF space over the frontal lobes bilaterally slightly greater on the left. Some of these are vessels that were seen on the prior CT in February 11, 2020. On the left and there is some increase in density which may represent some minimal subdural blood. The basal cisterns and sulci over the convexities are prominent. The ventricles are mildly prominent. IMPRESSION: Prominent CSF spaces bilaterally There are some linear densities consistent with some prominent dural vessels similar to prior study. There is an area of less well-defined increased density over the left the frontal lobe which could represent some minimal subdural blood. Volume averaging is another consideration. There is no mass effect Max Facial Sinus wo Cont CLINICAL HISTORY: Trauma FINDINGS: There is a nondisplaced fracture of the nasal bones. There is generalized leftward deviation of the nasal septum. There is some bowing to the right of the anterior nasal septum which may be due to some impaction. There is a fracture of the anterior nasal spine. There is sphenoid, ethmoid and maxillary mucosal thickening which is chronic. The mandible appears intact. Patient is edentulous. TMJs appear intact. IMPRESSION: Slightly impacted fracture of the nasal bones and anterior nasal septum. Fracture of the anterior nasal spine Pansinusitis
--- NOTE | 2020-03-02 14:34 | CT ---
Cervical Spine wo Cont CLINICAL HISTORY: Fall TECHNIQUE: Multiple CT sections were taken through the cervical spine in the transaxial projection. Coronal and sagittal views were reconstructed. Images were viewed at bone as well as soft tissue windows on a digital workstation. Auto dosage reduction and iterative reconstruction techniques employed. FINDINGS: Sagittal reconstruction images show some mild superior endplate compression deformity at C7 which is unchanged since the November 2019. There is diffuse degenerative disc disease. The there is osteoarthritis in the cervical facets. Alignment is maintained. Prevertebral soft tissues are unremarkable. Axial images show some mild bony foraminal encroachment at C3-4. There is bilateral bony foraminal encroachment at C4-5. IMPRESSION: No acute fracture or dislocation Old the mild superior plate compression deformity at C7 Moderate degenerative disc changes and facet osteoarthritis Neural foraminal encroachment at multiple levels described above
--- NOTE | 2020-03-02 14:35 | CR ---
Hip Min 1V w Pelvis Lt CLINICAL HISTORY: Fall, left hip pain FINDINGS: There is an intertrochanteric fracture of the left femur. There is an old healed fracture of the right pubis. IMPRESSION: Intertrochanteric fracture left femur Old healed fracture right pubic ramus
--- NOTE | 2020-03-02 14:37 | CR ---
CHEST: Portable 03/02/2020 at 1351 CLINICAL HISTORY:Pain COMPARISON:02/25/2020 FINDINGS: The heart size, pulmonary vascularity and hilar structures are normal. No infiltrate effusion or pneumothorax is seen. Lungs are mildly hyperaerated. IMPRESSION: No acute cardiopulmonary process. Emphysematous changes
--- NOTE | 2020-03-02 15:43 | EDM.PDOC ---
ED HPI GENERAL MEDICAL PROBLEM - General Chief Complaint: Drug or Alcohol Abuse Stated Complaint: DRINKING Time Seen by Provider: 03/02/20 13:00 Source of Information: Reports: EMS - History of Present Illness INITIAL COMMENTS - FREE TEXT/NARRATIVE: Patient presents to the emergency department via ambulance after he was found on the ground by a social welfare administrator. He is a known alcoholic and he has bruising around his face and he appears weakened. Patient has some significant left hip pain and he appears to have an externally rotated left leg. Patient admits to drinking today but he is really not giving much history here today. He has other various bruises and abrasions and I see no other obvious deformity other than at the left hip. Patient arrives intoxicated and is well-known to our emergency department staff. - Related Data Allergies Allergy/AdvReac Type Severity Reaction Status Date / Time Penicillins Allergy Severe Anaphylactic Verified 03/02/20 13:31 Shock Home Meds: Home Meds Albuterol Sulfate [Albuterol Sulfate Hfa] 2 puff IH Q4H #1 [email or web address] 12/01/19 [Rx] Docusate Sodium [Colace] 100 mg PO DAILY #30 cap 12/01/19 [Rx] Folic Acid 1 mg PO DAILY #30 tablet 12/01/19 [Rx] Melatonin 5 mg PO BEDTIME #30 capsule 12/01/19 [Rx] Multivitamin with Minerals [Multiple Vitamin] 1 tab PO DAILY #30 tablet 12/01/19 [Rx] PHENobarbitaL [Phenobarbital] 97.2 mg PO BID #60 tablet 12/01/19 [Rx] Tamsulosin HCl 0.4 mg PO DAILY #30 capsule 12/01/19 [Rx] Thiamine HCl [Vitamin B-1] 100 mg PO DAILY #30 tablet 12/01/19 [Rx] cloNIDine HCL [Clonidine HCl] 0.1 mg PO BID #60 tablet 12/01/19 [Rx] traZODone HCl [Trazodone HCl] 150 mg PO BEDTIME #30 tablet 12/01/19 [Rx] Phenytoin 200 mg PO BID 12/21/19 [History] Losartan [Cozaar] 50 mg PO DAILY 02/13/20 [History] hydrOXYzine HCL [hydrOXYzine] 25 mg PO BID 02/13/20 [History] Acetaminophen/HYDROcodone [Barbeau 325-5 MG] 1 tab PO Q4H PRN #8 tab 02/22/20 [Rx] Citalopram [Citalopram HBr] 20 mg PO DAILY 02/22/20 [History] Pantoprazole Sodium [Protonix] 1 tab PO DAILY 02/22/20 [History] Past Medical History HEENT History: Reports: Cataract, Impaired Vision, Macular Degeneration Cardiovascular History: Reports: Blood Clots/VTE/DVT, CAD, Heart Failure, Hypertension, SOB on Exertion, Syncope Respiratory History: Reports: COPD, PE, SOB, Other (See Below) Other Respiratory History: calcified pleural plaque on chest x-ray. Mesothelioma of both lungs Gastrointestinal History: Reports: Cholelithiasis, Chronic Constipation, GERD Genitourinary History: Reports: BPH, Renal Disease, Other (See Below) Other Genitourinary History: recent kidney function issue but undiagnoised at this time Musculoskeletal History: Reports: Back Pain, Chronic, Fracture, Osteoporosis, Other (See Below) Other Musculoskeletal History: has metal in left hand from [employer] [place];. shattered pelvis; multiple compression fractures Neurological History: Reports: Neuropathy, Peripheral, Seizure Psychiatric History: Reports: Addiction, Depression, Eating Disorders, Suicide Attempt Other Psychiatric History: Malnutrition due to inability to swallow. Insomnia Endocrine/Metabolic History: Reports: Other (See Below) Other Endocrine/Metabolic History: recent elevated blood sugars, undiagnoised. thyroid cancer, failed to go to surgery on 09/01/16 Hematologic History: Reports: Anticoagulation Therapy Oncologic (Cancer) History: Reports: Lung, Thyroid Other Oncologic History: s/s of mesotheleoma - Infectious Disease History Infectious Disease History: Reports: Chicken Pox, Measles, Mumps - Past Surgical History Head Surgeries/Procedures: Reports: None HEENT Surgical History: Reports: Adenoidectomy, Cataract Surgery, Tonsillectomy GI Surgical History: Reports: Cholecystectomy, EGD, Esophageal Dilatation Endocrine Surgical History: Reports: Thyroid Biopsy Neurological Surgical History: Reports: Spinal Fusion Musculoskeletal Surgical History: Reports: None Dermatological Surgical History: Reports: None Social & Family History - Family History Family Medical History: Noncontributory - Tobacco Use Smoking Status *Q: Current Every Day Smoker Years of Tobacco use: 51 Packs/Tins Daily: 1 - Caffeine Use Caffeine Use: Reports: Coffee Caffeine Use Comment: unknown, patient has difficulty answering questions. - Alcohol Use Days Per Week of Alcohol Use: 7 Number of Drinks Per Day: 10 Total Drinks Per Week: 70 - Recreational Drug Use Recreational Drug Use: No - Living Situation & Occupation Living situation: Reports: , with Family Occupation: Disabled ED ROS GENERAL - Review of Systems Review Of Systems: Unable To Obtain (due to intoxication) Reason Not Obtained: due to intoxication ED EXAM, GENERAL - Physical Exam Exam: See Below Exam Limited By: Altered Mental Status General Appearance: Alert, Lethargic, Obtunded Ears: Normal External Exam Nose: Other (Ecchymosis around the nasal bridge and then the inferior periareolar orbital areas, no obvious facial instability, difficult to appreciate malocclusion as the patient is edentulous.) Neck: Normal Inspection Respiratory/Chest: No Respiratory Distress Cardiovascular: Normal Peripheral Pulses GI/Abdominal: Soft, Non-Tender Extremities: Normal Inspection, Other (See HPI, good peripheral pulses, any movement reproduces pain in the left hip.) Skin Exam: Warm EKG INTERPRETATION Rhythm: NSR Course - Vital Signs Text/Narrative:: Patient did well here in the emergency department unfortunately has a left intertrochanteric hip fracture, radiologist commented on likely some volume averaging intracranially versus a minimal subdural, patient will be admitted initially to the intensive care unit, vital signs were stable here in the emergency department, see radiologist note regarding CT scans Critical CARE time: Critical care time is close for procedures: 35 minutes Last Recorded V/S: Last Vital Signs Temp 98.2 F 03/02/20 13:16 Pulse 97 03/02/20 15:30 Resp 18 03/02/20 13:16 BP 132/70 03/02/20 15:30 Pulse Ox 95 03/02/20 15:30 - Orders/Labs/Meds Orders: Active Orders 24 hr Category Date Time Status EKG Documentation Completion [RC] ASDIRECTED Care 03/02/20 13:02 Active Peripheral IV Care [RC] . DIRECTED Care 03/02/20 13:02 Active Nothing per Oral Now Diet [DIET] Diet 03/02/20 Breakfast Active UA W/MICROSCOPIC [URIN] Urgent Lab 03/02/20 13:01 Ordered Sodium Chloride 0.9% [Saline Flush] Med 03/02/20 13:01 Active 10 ml FLUSH ASDIRECTED PRN ED Alcohol and Substance Abuse Reflex [OM.PC] Click to Oth 03/02/20 13:01 Ordered Edit Peripheral IV Insertion Adult [OM.PC] Stat Oth 03/02/20 13:01 Ordered EKG 12 Lead [EK] Urgent Ther 03/02/20 13:01 Ordered Medication Orders Sodium Chloride (Saline Flush) 10 ml FLUSH ASDIRECTED PRN PRN Reason: Keep Vein Open Last Admin: 03/02/20 13:19 Dose: 10 ml Documented by: ELIZABETH Labs: Laboratory Tests 03/02/20 03/02/20 03/02/20 Range/Units 13:18 13:18 13:18 WBC 11.4 H (4.5-11.0) K/uL RBC 3.91 L (4.30-5.90) M/uL Hgb 13.5 (12.0-15.0) g/dL Hct 39.7 L (40.0-54.0) % MCV 102 H (80-98) fL MCH 35 H (27-31) pg MCHC 34 (32-36) % Plt Count 149 L (150-400) K/uL Neut % (Auto) 80 H (36-66) % Lymph % (Auto) 8 L (24-44) % Cascade % (Auto) 12 H (2-6) % Eos % (Auto) 0 L (2-4) % Baso % (Auto) 0 (0-1) % PT 11.0 (9.5-12.0) sec INR 1.01 (0.80-1.20) Sodium 143 (140-148) mmol/L Potassium 3.0 L (3.6-5.2) mmol/L Chloride 101 (100-108) mmol/L Carbon Dioxide 35 H (21-32) mmol/L Anion Gap 10.0 (5.0-14.0) mmol/L BUN 8 (7-18) mg/dL Creatinine 0.6 L (0.8-1.3) mg/dL Est Cr Clr Drug Dosing 96.90 mL/min Estimated GFR (MDRD) > 60 (>60) Glucose 150 H (74-106) mg/dL Lactic Acid (0.4-2.0) mmol/L Calcium 7.3 L (8.5-10.1) mg/dL Phosphorus 2.4 L (2.5-4.9) mg/dL Magnesium 1.9 (1.8-2.4) mg/dL Total Bilirubin 0.4 (0.2-1.0) mg/dL AST 20 (15-37) U/L ALT 27 (12-78) U/L Alkaline Phosphatase 259 H (46-116) U/L Ammonia (11-32) mmol/L Creatine Kinase (39-308) U/L Troponin I < 0.017 (0.000-0.056) ng/mL Total Protein 5.6 L (6.4-8.2) g/dL Albumin 2.6 L (3.4-5.0) g/dL Globulin 3.0 (2.3-3.5) g/dL Albumin/Globulin Ratio 0.9 L (1.2-2.2) Lipase 572 H (73-393) U/L Ethyl Alcohol mg/dL 03/02/20 03/02/20 03/02/20 Range/Units 13:18 13:18 13:18 WBC (4.5-11.0) K/uL RBC (4.30-5.90) M/uL Hgb (12.0-15.0) g/dL Hct (40.0-54.0) % MCV (80-98) fL MCH (27-31) pg MCHC (32-36) % Plt Count (150-400) K/uL Neut % (Auto) (36-66) % Lymph % (Auto) (24-44) % Cascade % (Auto) (2-6) % Eos % (Auto) (2-4) % Baso % (Auto) (0-1) % PT (9.5-12.0) sec INR (0.80-1.20) Sodium (140-148) mmol/L Potassium (3.6-5.2) mmol/L Chloride (100-108) mmol/L Carbon Dioxide (21-32) mmol/L Anion Gap (5.0-14.0) mmol/L BUN (7-18) mg/dL Creatinine (0.8-1.3) mg/dL Est Cr Clr Drug Dosing mL/min Estimated GFR (MDRD) (>60) Glucose (74-106) mg/dL Lactic Acid 2.5 H (0.4-2.0) mmol/L Calcium (8.5-10.1) mg/dL Phosphorus (2.5-4.9) mg/dL Magnesium (1.8-2.4) mg/dL Total Bilirubin (0.2-1.0) mg/dL AST (15-37) U/L ALT (12-78) U/L Alkaline Phosphatase (46-116) U/L Ammonia 6 L (11-32) mmol/L Creatine Kinase (39-308) U/L Troponin I (0.000-0.056) ng/mL Total Protein (6.4-8.2) g/dL Albumin (3.4-5.0) g/dL Globulin (2.3-3.5) g/dL Albumin/Globulin Ratio (1.2-2.2) Lipase (73-393) U/L Ethyl Alcohol 275 mg/dL 03/02/20 Range/Units 13:18 WBC (4.5-11.0) K/uL RBC (4.30-5.90) M/uL Hgb (12.0-15.0) g/dL Hct (40.0-54.0) % MCV (80-98) fL MCH (27-31) pg MCHC (32-36) % Plt Count (150-400) K/uL Neut % (Auto) (36-66) % Lymph % (Auto) (24-44) % Cascade % (Auto) (2-6) % Eos % (Auto) (2-4) % Baso % (Auto) (0-1) % PT (9.5-12.0) sec INR (0.80-1.20) Sodium (140-148) mmol/L Potassium (3.6-5.2) mmol/L Chloride (100-108) mmol/L Carbon Dioxide (21-32) mmol/L Anion Gap (5.0-14.0) mmol/L BUN (7-18) mg/dL Creatinine (0.8-1.3) mg/dL Est Cr Clr Drug Dosing mL/min Estimated GFR (MDRD) (>60) Glucose (74-106) mg/dL Lactic Acid (0.4-2.0) mmol/L Calcium (8.5-10.1) mg/dL Phosphorus (2.5-4.9) mg/dL Magnesium (1.8-2.4) mg/dL Total Bilirubin (0.2-1.0) mg/dL AST (15-37) U/L ALT (12-78) U/L Alkaline Phosphatase (46-116) U/L Ammonia (11-32) mmol/L Creatine Kinase 68 (39-308) U/L Troponin I (0.000-0.056) ng/mL Total Protein (6.4-8.2) g/dL Albumin (3.4-5.0) g/dL Globulin (2.3-3.5) g/dL Albumin/Globulin Ratio (1.2-2.2) Lipase (73-393) U/L Ethyl Alcohol mg/dL Meds: Medications Generic Name Dose Route Start Last Admin Trade Name Freq PRN Reason Stop Dose Admin Sodium Chloride 10 ml 03/02/20 13:01 03/02/20 13:19 Saline Flush FLUSH 10 ml ASDIRECTED PRN Administration Keep Vein Open Discontinued Medications Generic Name Dose Route Start Last Admin Trade Name Freq PRN Reason Stop Dose Admin Lorazepam 1 mg 03/02/20 13:07 03/02/20 13:17 Ativan IVPUSH 03/02/20 13:08 1 mg ONETIME ONE Administration Departure - Departure Time of Disposition: 15:44 Disposition: Admitted As Inpatient 66 Condition: Poor Clinical Impression: Alcohol withdrawal syndrome, Fall in elderly patient, Abrasions of multiple sites, Hip fracture - Discharge Information Referrals: PCP,None [Primary Care Provider] - Sepsis Event Note (ED) - Evaluation Sepsis Screening Result: No Definite Risk - Focused Exam Vital Signs: Vital Signs Temp Pulse Resp BP Pulse Ox 03/02/20 15:30 97 132/70 95 03/02/20 13:16 98.2 F 90 18 130/69 92 L 03/02/20 12:35 98.2 F 90 18 130/69 92 L - My Orders Last 24 Hours: My Active Orders 03/02/20 Breakfast Nothing per Oral Now Diet [DIET] 03/02/20 13:01 UA W/MICROSCOPIC [URIN] Urgent Sodium Chloride 0.9% [Saline Flush] 10 ml FLUSH ASDIRECTED PRN ED Alcohol and Substance Abuse Reflex [OM.PC] Click to Edit Peripheral IV Insertion Adult [OM.PC] Stat EKG 12 Lead [EK] Urgent 03/02/20 13:02 EKG Documentation Completion [RC] ASDIRECTED Peripheral IV Care [RC] . DIRECTED - Assessment/Plan Last 24 Hours: My Active Orders 03/02/20 Breakfast Nothing per Oral Now Diet [DIET] 03/02/20 13:01 UA W/MICROSCOPIC [URIN] Urgent Sodium Chloride 0.9% [Saline Flush] 10 ml FLUSH ASDIRECTED PRN ED Alcohol and Substance Abuse Reflex [OM.PC] Click to Edit Peripheral IV Insertion Adult [OM.PC] Stat EKG 12 Lead [EK] Urgent 03/02/20 13:02 EKG Documentation Completion [RC] ASDIRECTED Peripheral IV Care [RC] . DIRECTED
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
[2020-03-02] MEDS ORDERED: Ondansetron 4 MG Tab.DIS PO PRN (16:23)
[2020-03-02] MEDS ORDERED: Albuterol 0.083% 2.5 MG/3 ML Neb Soln NEB PRN (16:23)
[2020-03-02] MEDS ORDERED: Ondansetron 4 MG/2 ML SDV IV PRN (16:23)
[2020-03-02] MEDS ORDERED: LORazepam 2 MG/ML SDV IVPUSH PRN (16:23)
[2020-03-02] MEDS ORDERED: Magnesium Hydroxide 400 MG/5 ML Susp 30 ML Cup PO PRN (16:23)
[2020-03-02] MEDS ORDERED: Potassium Chloride 20 MEQ Tab.ER PO ONE (17:00)
[2020-03-02] MEDS ORDERED: Potassium Chloride 20 MEQ, Lidocaine 1% 2 ML in Sodium Chloride 0.9% 100 ML IV ONE (17:30)
[2020-03-02] MEDS ORDERED: Lidocaine 2% Jelly 10 ML Urojet MUCMEM ONE (17:48)
[2020-03-02] MEDS: HYDROmorphone 1 MG/ML Syringe IVPUSH PRN ×3 (17:49→22:38)
[2020-03-02] MEDS: NS + KCl 20mEq/L 1,000 ML IV SCH (18:05)
[2020-03-02] MEDS: oxyCODONE 5 MG Tab PO PRN (19:11)
[2020-03-02] MEDS: LORazepam 2 MG/ML SDV IV SCH (20:06)
[2020-03-02] MEDS: cloNIDine 0.1 MG Tab PO SCH (20:10)
[2020-03-02] MEDS: Melatonin 3 MG Tab PO SCH (20:10)
[2020-03-02] MEDS: Phenytoin 100 MG Cap.ER PO SCH (20:10)
[2020-03-02] MEDS: PHENobarbital 32.4 MG Tab PO SCH (20:10)
[2020-03-02] MEDS: Gabapentin 400 MG Cap PO SCH (20:11)
[2020-03-03] MEDS: HYDROmorphone 1 MG/ML Syringe IVPUSH PRN ×7 (01:24→19:47)
[2020-03-03] MEDS: NS + KCl 20mEq/L 1,000 ML IV SCH ×3 (01:29→20:15)
[2020-03-03] MEDS: Phenytoin 100 MG Cap.ER PO SCH ×2 (09:10→21:30)
[2020-03-03] MEDS: Thiamine 100 MG Tab PO SCH (09:10)
[2020-03-03] MEDS: Pantoprazole 40 MG Tab.CR PO SCH (09:10)
[2020-03-03] MEDS: PHENobarbital 32.4 MG Tab PO SCH ×2 (09:10→21:29)
[2020-03-03] MEDS: Citalopram 20 MG Tab PO SCH (09:11)
[2020-03-03] MEDS: Tamsulosin 0.4 MG Cap.ER PO SCH (09:11)
[2020-03-03] MEDS: cloNIDine 0.1 MG Tab PO SCH ×2 (09:11→21:29)
[2020-03-03] MEDS: Losartan 50 MG Tab PO SCH (09:11)
[2020-03-03] MEDS: Gabapentin 400 MG Cap PO SCH ×3 (09:11→21:29)
[2020-03-03] MEDS: Folic Acid 1 MG Tab PO SCH (09:11)
--- NOTE | 2020-03-03 09:20 | CT ---
Head wo Cont CLINICAL HISTORY: Follow-up subdural density COMPARISON: 03/02/2020 02/12/2020 12/21/2019 TECHNIQUE: Transverse scans were obtained from the base of the skull through the vertex without IV contrast on a multislice, multidetector CT scanner. Auto dosage reduction and iterative reconstruction techniques employed. FINDINGS: Patient has prominent extra-axial spaces. This is similar to yesterday's study There is vague increase in density in the subdural CSF when compared to the intraventricular CSF. This is similar to prior exams. No new areas of hemorrhage are identified. There is no mass effect IMPRESSION: Prominent extra-axial spaces over the frontal lobes particularly. This is similar to prior exams. No evidence of new hemorrhage Density measurements of the extra-axial CSF compared intraventricular CSF shows slight increase. This is present on multiple prior exam. 

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
--- NOTE | 2020-03-03 09:53 | PCM.PN ---
- General Info Date of Service: 03/03/20 Subjective Update: No acute events overnight. He did receive 1 dose of lorazepam last night but there is no strong evidence for alcohol withdrawal this morning. Continues to complain of severe pain in the left hip as well as moderate pain in his lower back which is chronic. No nausea. He did require a small amount of oxygen overnight. Lipase is normal today. Vital signs are otherwise stable. Functional Status: Reports: Pain Controlled - Review of Systems General: Denies: Fever Musculoskeletal: Reports: Back Pain, Leg Pain (left hip ) - Patient Data Vitals - Most Recent: Last Vital Signs Temp 36.6 C 03/03/20 08:00 Pulse 75 03/03/20 08:00 Resp 12 03/03/20 08:00 BP 158/65 H 03/03/20 09:11 Pulse Ox 91 L 03/03/20 08:00 Weight - Most Recent: 58.96 kg I&O - Last 24 Hours: Intake & Output 03/02/20 03/03/20 03/03/20 22:59 06:59 14:59 Output Total 330 550 Balance -330 -550 Lab Results Last 24 Hours: Laboratory Results - last 24 hr 03/02/20 03/02/20 03/02/20 Range/Units 13:18 13:18 13:18 WBC 11.4 H (4.5-11.0) K/uL RBC 3.91 L (4.30-5.90) M/uL Hgb 13.5 (12.0-15.0) g/dL Hct 39.7 L (40.0-54.0) % MCV 102 H (80-98) fL MCH 35 H (27-31) pg MCHC 34 (32-36) % Plt Count 149 L (150-400) K/uL Neut % (Auto) 80 H (36-66) % Lymph % (Auto) 8 L (24-44) % [place] % (Auto) 12 H (2-6) % Eos % (Auto) 0 L (2-4) % Baso % (Auto) 0 (0-1) % PT 11.0 (9.5-12.0) sec INR 1.01 (0.80-1.20) Sodium 143 (140-148) mmol/L Potassium 3.0 L (3.6-5.2) mmol/L Chloride 101 (100-108) mmol/L Carbon Dioxide 35 H (21-32) mmol/L Anion Gap 10.0 (5.0-14.0) mmol/L BUN 8 (7-18) mg/dL Creatinine 0.6 L (0.8-1.3) mg/dL Est Cr Clr Drug Dosing 96.90 mL/min Estimated GFR (MDRD) > 60 (>60) Glucose 150 H (74-106) mg/dL Lactic Acid (0.4-2.0) mmol/L Calcium 7.3 L (8.5-10.1) mg/dL Phosphorus 2.4 L (2.5-4.9) mg/dL Magnesium 1.9 (1.8-2.4) mg/dL Total Bilirubin 0.4 (0.2-1.0) mg/dL AST 20 (15-37) U/L ALT 27 (12-78) U/L Alkaline Phosphatase 259 H (46-116) U/L Ammonia (11-32) mmol/L Creatine Kinase (39-308) U/L Troponin I < 0.017 (0.000-0.056) ng/mL Total Protein 5.6 L (6.4-8.2) g/dL Albumin 2.6 L (3.4-5.0) g/dL Globulin 3.0 (2.3-3.5) g/dL Albumin/Globulin Ratio 0.9 L (1.2-2.2) Lipase 572 H (73-393) U/L Urine Color (YELLOW) Urine Appearance (CLEAR) Urine pH (5.0-8.0) Ur Specific [place] (1.008-1.030) Urine Protein (NEGATIVE) mg/dL Urine Glucose (UA) (NEGATIVE) mg/dL Urine Ketones (NEGATIVE) mg/dL Urine Occult Blood (NEGATIVE) Urine Nitrite (NEGATIVE) Urine Bilirubin (NEGATIVE) Urine Urobilinogen (0.2-1.0) EU/dL Ur Leukocyte Esterase (NEGATIVE) Urine RBC (0-5) Urine WBC (0-5) Ur Epithelial Cells Amorphous Sediment Urine Bacteria Urine Mucus Ethyl Alcohol mg/dL 03/02/20 03/02/20 03/02/20 Range/Units 13:18 13:18 13:18 WBC (4.5-11.0) K/uL RBC (4.30-5.90) M/uL Hgb (12.0-15.0) g/dL Hct (40.0-54.0) % MCV (80-98) fL MCH (27-31) pg MCHC (32-36) % Plt Count (150-400) K/uL Neut % (Auto) (36-66) % Lymph % (Auto) (24-44) % [place] % (Auto) (2-6) % Eos % (Auto) (2-4) % Baso % (Auto) (0-1) % PT (9.5-12.0) sec INR (0.80-1.20) Sodium (140-148) mmol/L Potassium (3.6-5.2) mmol/L Chloride (100-108) mmol/L Carbon Dioxide (21-32) mmol/L Anion Gap (5.0-14.0) mmol/L BUN (7-18) mg/dL Creatinine (0.8-1.3) mg/dL Est Cr Clr Drug Dosing mL/min Estimated GFR (MDRD) (>60) Glucose (74-106) mg/dL Lactic Acid 2.5 H (0.4-2.0) mmol/L Calcium (8.5-10.1) mg/dL Phosphorus (2.5-4.9) mg/dL Magnesium (1.8-2.4) mg/dL Total Bilirubin (0.2-1.0) mg/dL AST (15-37) U/L ALT (12-78) U/L Alkaline Phosphatase (46-116) U/L Ammonia 6 L (11-32) mmol/L Creatine Kinase (39-308) U/L Troponin I (0.000-0.056) ng/mL Total Protein (6.4-8.2) g/dL Albumin (3.4-5.0) g/dL Globulin (2.3-3.5) g/dL Albumin/Globulin Ratio (1.2-2.2) Lipase (73-393) U/L Urine Color (YELLOW) Urine Appearance (CLEAR) Urine pH (5.0-8.0) Ur Specific [place] (1.008-1.030) Urine Protein (NEGATIVE) mg/dL Urine Glucose (UA) (NEGATIVE) mg/dL Urine Ketones (NEGATIVE) mg/dL Urine Occult Blood (NEGATIVE) Urine Nitrite (NEGATIVE) Urine Bilirubin (NEGATIVE) Urine Urobilinogen (0.2-1.0) EU/dL Ur Leukocyte Esterase (NEGATIVE) Urine RBC (0-5) Urine WBC (0-5) Ur Epithelial Cells Amorphous Sediment Urine Bacteria Urine Mucus Ethyl Alcohol 275 mg/dL 03/02/20 03/02/20 03/03/20 Range/Units 13:18 18:00 05:11 WBC 8.0 (4.5-11.0) K/uL RBC 3.61 L (4.30-5.90) M/uL Hgb 12.5 (12.0-15.0) g/dL Hct 37.1 L (40.0-54.0) % MCV 103 H (80-98) fL MCH 35 H (27-31) pg MCHC 34 (32-36) % Plt Count 122 L (150-400) K/uL Neut % (Auto) (36-66) % Lymph % (Auto) (24-44) % [place] % (Auto) (2-6) % Eos % (Auto) (2-4) % Baso % (Auto) (0-1) % PT (9.5-12.0) sec INR (0.80-1.20) Sodium (140-148) mmol/L Potassium (3.6-5.2) mmol/L Chloride (100-108) mmol/L Carbon Dioxide (21-32) mmol/L Anion Gap (5.0-14.0) mmol/L BUN (7-18) mg/dL Creatinine (0.8-1.3) mg/dL Est Cr Clr Drug Dosing mL/min Estimated GFR (MDRD) (>60) Glucose (74-106) mg/dL Lactic Acid (0.4-2.0) mmol/L Calcium (8.5-10.1) mg/dL Phosphorus (2.5-4.9) mg/dL Magnesium (1.8-2.4) mg/dL Total Bilirubin (0.2-1.0) mg/dL AST (15-37) U/L ALT (12-78) U/L Alkaline Phosphatase (46-116) U/L Ammonia (11-32) mmol/L Creatine Kinase 68 (39-308) U/L Troponin I (0.000-0.056) ng/mL Total Protein (6.4-8.2) g/dL Albumin (3.4-5.0) g/dL Globulin (2.3-3.5) g/dL Albumin/Globulin Ratio (1.2-2.2) Lipase (73-393) U/L Urine Color Yellow (YELLOW) Urine Appearance Slightly cloudy A (CLEAR) Urine pH 6.5 (5.0-8.0) Ur Specific [place] 1.025 (1.008-1.030) Urine Protein Trace H (NEGATIVE) mg/dL Urine Glucose (UA) 100 H (NEGATIVE) mg/dL Urine Ketones Negative (NEGATIVE) mg/dL Urine Occult Blood Small H (NEGATIVE) Urine Nitrite Negative (NEGATIVE) Urine Bilirubin Negative (NEGATIVE) Urine Urobilinogen 1.0 (0.2-1.0) EU/dL Ur Leukocyte Esterase Trace H (NEGATIVE) Urine RBC 5-10 H (0-5) Urine WBC 20-30 H (0-5) Ur Epithelial Cells Few Amorphous Sediment Not seen Urine Bacteria Many Urine Mucus Not seen Ethyl Alcohol mg/dL 03/03/20 Range/Units 05:11 WBC (4.5-11.0) K/uL RBC (4.30-5.90) M/uL Hgb (12.0-15.0) g/dL Hct (40.0-54.0) % MCV (80-98) fL MCH (27-31) pg MCHC (32-36) % Plt Count (150-400) K/uL Neut % (Auto) (36-66) % Lymph % (Auto) (24-44) % [place] % (Auto) (2-6) % Eos % (Auto) (2-4) % Baso % (Auto) (0-1) % PT (9.5-12.0) sec INR (0.80-1.20) Sodium 140 (140-148) mmol/L Potassium 4.8 (3.6-5.2) mmol/L Chloride 103 (100-108) mmol/L Carbon Dioxide 31 (21-32) mmol/L Anion Gap 6.3 (5.0-14.0) mmol/L BUN 6 L (7-18) mg/dL Creatinine 0.6 L (0.8-1.3) mg/dL Est Cr Clr Drug Dosing 96.90 mL/min Estimated GFR (MDRD) > 60 (>60) Glucose 138 H (74-106) mg/dL Lactic Acid (0.4-2.0) mmol/L Calcium 7.6 L (8.5-10.1) mg/dL Phosphorus (2.5-4.9) mg/dL Magnesium (1.8-2.4) mg/dL Total Bilirubin (0.2-1.0) mg/dL AST (15-37) U/L ALT (12-78) U/L Alkaline Phosphatase (46-116) U/L Ammonia (11-32) mmol/L Creatine Kinase (39-308) U/L Troponin I (0.000-0.056) ng/mL Total Protein (6.4-8.2) g/dL Albumin (3.4-5.0) g/dL Globulin (2.3-3.5) g/dL Albumin/Globulin Ratio (1.2-2.2) Lipase 123 (73-393) U/L Urine Color (YELLOW) Urine Appearance (CLEAR) Urine pH (5.0-8.0) Ur Specific [place] (1.008-1.030) Urine Protein (NEGATIVE) mg/dL Urine Glucose (UA) (NEGATIVE) mg/dL Urine Ketones (NEGATIVE) mg/dL Urine Occult Blood (NEGATIVE) Urine Nitrite (NEGATIVE) Urine Bilirubin (NEGATIVE) Urine Urobilinogen (0.2-1.0) EU/dL Ur Leukocyte Esterase (NEGATIVE) Urine RBC (0-5) Urine WBC (0-5) Ur Epithelial Cells Amorphous Sediment Urine Bacteria Urine Mucus Ethyl Alcohol mg/dL Med Orders - Current: Current Medications Acetaminophen (Tylenol) 650 mg PO Q4H PRN PRN Reason: Pain (Mild 1-3)/fever Albuterol (Proventil Neb Soln) 2.5 mg NEB Q4H PRN PRN Reason: Shortness Of Breath/wheezing Citalopram Hydrobromide (Celexa) 20 mg PO DAILY [facility] Last Admin: 03/03/20 09:11 Dose: 20 mg Documented by: Clonidine HCl (Catapres) 0.1 mg PO BID [facility] Last Admin: 03/03/20 09:11 Dose: 0.1 mg Documented by: Folic Acid (Folic Acid) 1 mg PO DAILY [facility] Last Admin: 03/03/20 09:11 Dose: 1 mg Documented by: Gabapentin (Neurontin) 400 mg PO TID [facility] Last Admin: 03/03/20 09:11 Dose: 400 mg Documented by: Hydromorphone HCl (Dilaudid) 1 mg IVPUSH Q2H PRN PRN Reason: Pain (severe 7-10) Last Admin: 03/03/20 09:00 Dose: 1 mg Documented by: Potassium Chloride/Sodium Chloride (Normal Saline With 20 Meq Kcl) 1,000 mls @ 125 mls/hr IV ASDIRECTED [facility] Last Admin: 03/03/20 08:59 Dose: 125 mls/hr Documented by: Cefazolin Sodium/Dextrose 2 gm (/ Premix) 50 mls @ 100 mls/hr IV ONETIME ONE Stop: 03/03/20 13:29 Lorazepam (Ativan) 0.5 mg IVPUSH Q4H PRN PRN Reason: Nausea/Vomiting Lorazepam (Ativan) 0 mg PO ASDIRECTED [facility]; Protocol Lorazepam (Ativan) 0 mg IV ASDIRECTED [facility]; Protocol Last Admin: 03/02/20 20:06 Dose: 1 mg Documented by: Losartan Potassium (Cozaar) 50 mg PO DAILY [facility] Last Admin: 03/03/20 09:11 Dose: 50 mg Documented by: Magnesium Hydroxide (Milk Of Magnesia) 30 ml PO Q12H PRN PRN Reason: Constipation Melatonin (Melatonin) 9 mg PO BEDTIME [facility] Last Admin: 03/02/20 20:10 Dose: 9 mg Documented by: Ondansetron HCl (Zofran) 4 mg IV Q6H PRN PRN Reason: Nausea/Vomiting Ondansetron HCl (Zofran Odt) 4 mg PO Q6H PRN PRN Reason: Nausea able to take PO Oxycodone HCl (Oxycodone) 5 - 10 mg PO Q4H PRN PRN Reason: Pain Last Admin: 03/02/20 19:11 Dose: 10 mg Documented by: Pantoprazole Sodium (Protonix) 40 mg PO ACBREAKFAST [facility] Last Admin: 03/03/20 09:10 Dose: 40 mg Documented by: Phenobarbital (Phenobarbital) 97.2 mg PO BID [facility] Last Admin: 03/03/20 09:10 Dose: 97.2 mg Documented by: Phenytoin Sodium (Phenytoin) 200 mg PO BID [facility] Last Admin: 03/03/20 09:10 Dose: 200 mg Documented by: Senna/Docusate Sodium (Senna Plus) 1 tab PO DAILY [facility] Last Admin: 03/03/20 09:11 Dose: 1 tab Documented by: Sodium Chloride (Saline Flush) 10 ml FLUSH ASDIRECTED PRN PRN Reason: Keep Vein Open Last Admin: 03/02/20 13:19 Dose: 10 ml Documented by: Tamsulosin HCl (Flomax) 0.4 mg PO DAILY [facility] Last Admin: 03/03/20 09:11 Dose: 0.4 mg Documented by: Thiamine HCl (Vitamin B-1) 100 mg PO DAILY [facility] Last Admin: 03/03/20 09:10 Dose: 100 mg Documented by: Discontinued Medications Potassium Chloride 20 meq/Lidocaine HCl 2 ml/ Sodium Chloride 112 mls @ 56 mls/hr IV ONETIME ONE Stop: 03/02/20 19:29 Last Admin: 03/02/20 18:05 Dose: 56 mls/hr Documented by: Lidocaine HCl (Xylocaine 2% Jelly) 10 ml MUCMEM ONETIME ONE Stop: 03/02/20 17:49 Last Admin: 03/02/20 18:21 Dose: 10 ml Documented by: Lorazepam (Ativan) 1 mg IVPUSH ONETIME ONE Stop: 03/02/20 13:08 Last Admin: 03/02/20 13:17 Dose: 1 mg Documented by: Potassium Chloride (Klor-Con M20) 20 meq PO ONETIME ONE Stop: 03/02/20 17:01 Last Admin: 03/02/20 17:47 Dose: 20 meq Documented by: - Exam Quality Assessment: Supplemental Oxygen General: Alert, Oriented, Cooperative, No Acute Distress HEENT: Pupils Equal. No: Mucous Membr. Moist/[place] (dry) Lungs: Clear to Auscultation, Normal Respiratory Effort Cardiovascular: Regular Rate, Regular Rhythm GI/Abdominal Exam: Soft, No Distention Extremities: No Pedal Edema, Other (left leg short and externally rotated ) Peripheral Pulses: 2+: Dorsalis Pedis (L), Dorsalis Pedis (R) Skin: Warm, Dry Psy/Mental Status: Alert. No: Agitated Sepsis Event Note - Evaluation Sepsis Screening Result: No Definite Risk - Focused Exam Vital Signs: Vital Signs Temp Pulse Resp BP BP Pulse Ox 03/03/20 09:11 158/65 H 03/03/20 08:00 36.6 C 75 12 145/61 H 91 L 03/03/20 00:00 37.0 C 82 14 140/67 95 03/02/20 22:00 80 14 116/61 95 - Problem List & Annotations (1) Intertrochanteric fracture of left hip SNOMED Code(s): 363678350, 19662396566880696 Code(s): S72.142A - DISPLACED INTERTROCHANTERIC FRACTURE OF LEFT FEMUR, INIT Status: Acute Current Visit: Yes Qualifiers: Encounter type: initial encounter Fracture type: closed Fracture alignment: nondisplaced Qualified Code(s): S72.145A - Nondisplaced intertrochanteric fracture of left femur, initial encounter for closed fracture (2) Nasal bone fractures SNOMED Code(s): 664262045 Code(s): S02.2XXA - FRACTURE OF NASAL BONES, INIT ENCNTR FOR CLOSED FRACTURE Status: Acute Current Visit: Yes Qualifiers: Encounter type: initial encounter Fracture type: closed Qualified Code(s): S02.2XXA - Fracture of nasal bones, initial encounter for closed fracture (3) Abrasions of multiple sites SNOMED Code(s): 380355801, 055454664 Code(s): T07.XXXA - UNSPECIFIED MULTIPLE INJURIES, INITIAL ENCOUNTER Status: Acute Current Visit: Yes (4) Alcohol intoxication SNOMED Code(s): 25077458 Code(s): F10.929 - ALCOHOL USE, UNSPECIFIED WITH INTOXICATION, UNSPECIFIED Status: Acute Current Visit: No Qualifiers: Complication of substance-induced condition: with unspecified complication Qualified Code(s): F10.929 - Alcohol use, unspecified with intoxication, unspecified (5) Alcohol abuse SNOMED Code(s): 93349665 Code(s): F10.10 - ALCOHOL ABUSE, UNCOMPLICATED Status: Acute Current Visit: No (6) Hypokalemia SNOMED Code(s): 88229093 Code(s): E87.6 - HYPOKALEMIA Status: Acute Current Visit: Yes (7) Seizure disorder SNOMED Code(s): 181759750 Code(s): G40.909 - EPILEPSY, UNSP, NOT INTRACTABLE, WITHOUT STATUS EPILEPTICUS Status: Chronic Priority: Low Current Visit: No (8) Chronic thoracic back pain SNOMED Code(s): 666032745860058 Code(s): M54.6 - PAIN IN THORACIC SPINE; G89.29 - OTHER CHRONIC PAIN Status: Chronic Current Visit: No Qualifiers: Back pain laterality: midline Qualified Code(s): M54.6 - Pain in thoracic spine; G89.29 - Other chronic pain - Problem List Review Problem List Initiated/Reviewed/Updated: Yes - My Orders Last 24 Hours: My Active Orders 03/02/20 15:41 Resuscitation Status Routine 03/02/20 16:23 Acetaminophen [TylenoL] 650 mg PO Q4H PRN Albuterol [Proventil Neb Soln] 2.5 mg NEB Q4H PRN HYDROmorphone [Dilaudid] 1 mg IVPUSH Q2H PRN LORazepam [Ativan] 0.5 mg IVPUSH Q4H PRN LORazepam [Ativan] See Protocol IV ASDIRECTED LORazepam [Ativan] See Protocol PO ASDIRECTED Magnesium Hydroxide [Milk of Magnesia] 30 ml PO Q12H PRN NS + KCl 20mEq/L [Normal Saline with 20 mEq KCl] 1,000 ml IV ASDIRECTED Ondansetron [Zofran ODT] 4 mg PO Q6H PRN Ondansetron [Zofran] 4 mg IV Q6H PRN oxyCODONE 5 - 10 mg PO Q4H PRN 03/02/20 16:23 Patient Status [ADT] Routine Antiembolic Devices [RC] .Routine Bedrest Bedside Commode [RC] ASDIRECTED CIWAA Assessment [RC] Q1H Cardiac Monitoring [RC] CONTINUOUS Intake and Output [RC] QSHIFT Notify Provider Consults [RC] ASDIRECTED Notify Provider Vital Signs [RC] ASDIRECTED Notify Provider [RC] PRN Oxygen Therapy [RC] PRN RT Aerosol Therapy [RC] ASDIRECTED VTE/DVT Education [RC] Per Unit Routine Vital Signs [RC] Q2HR Consult to Physician [CONS] Routine Sequential Compression Device [OM.PC] Routine VTE Pharmacological Contraindications [AST] Routine 03/02/20 16:30 Insert Chavarria Catheter [Insert Urinary Catheter] [OM.PC] Q24H Urinary Catheter Assessment [RC] ASDIRECTED 03/02/20 Dinner Nothing per Oral After Midnight Diet [DIET] 03/02/20 21:00 Gabapentin [Neurontin] 400 mg PO TID Melatonin 9 mg PO BEDTIME PHENobarbitaL 97.2 mg PO BID Phenytoin 200 mg PO BID cloNIDine [Catapres] 0.1 mg PO BID 03/03/20 07:30 Pantoprazole [ProTONIX] 40 mg PO ACBREAKFAST 03/03/20 09:00 Citalopram [Celexa] 20 mg PO DAILY Docusate Sodium/Sennosides [Senna Plus] 1 tab PO DAILY Folic Acid 1 mg PO DAILY Losartan [Cozaar] 50 mg PO DAILY Tamsulosin [Flomax] 0.4 mg PO DAILY Thiamine [Vitamin B-1] 100 mg PO DAILY 03/03/20 09:50 CORONAVIRUS COVID-19, JC Routine 03/04/20 05:00 BASIC METABOLIC PANEL,BMP [CHEM] Timed CBC W/O DIFF,HEMOGRAM [HEME] Timed (1) - Plan Plan:: ASSESSMENT AND PLAN - Nondisplaced intertrochanteric fracture of the left hip-secondary to fall with trauma at home. Still having severe pain. Surgical intervention planned later in the day. -Pain control -Nonweightbearing left leg -Surgical consultation with Dr Romeo Scott with surgery planned later today -Physical therapy when stable postoperatively -Anticipate 1 month of anticoagulation postoperatively with his history of DVT Alcohol abuse with intoxication-no impressive evidence for alcohol withdrawal thus far. -CIWA protocol with Lorazepam in case he has any withdrawal -Scheduled gabapentin -Melatonin at bedtime Hypokalemia-improved with supplementation. Seizure disorder-no issues so far. -Continue home medications Maintenance issues - - DVT prophylaxis -mechanical until after surgery, anticipate 1 month of enoxaparin - GI prophylaxis -continue home PPI - Nutrition -regular diet tonight, nothing by mouth after midnight - Chavarria catheter -placed for strict intake and output monitoring in a critical patient heading to surgery Disposition -anticipate discharge to a senior care facility for subacute rehab Primary care physician - Dr Rito Sotelo M.D.
[2020-03-03] MEDS ORDERED: ceFAZolin 2 GM in Premix Bag 1 BAG IV ONE (13:00)
[2020-03-03] MEDS ORDERED: Midazolam 1 MG/ML 2 ML SDV ONE (14:45)
[2020-03-03] MEDS ORDERED: fentaNYL 100 MCG/2 ML SDV ONE (14:45)
[2020-03-03] MEDS ORDERED: Propofol 200 MG/20 ML SDV ONE (14:46)
[2020-03-03] MEDS ORDERED: Lactated Ringers 1,000 ML ONE (15:46)
[2020-03-03] MEDS: Enoxaparin 30 MG/0.3 ML Syringe SUBCUT SCH (17:55)
[2020-03-03] MEDS: Melatonin 3 MG Tab PO SCH (21:29)
[2020-03-03] MEDS: ceFAZolin 1 GM in Premix Bag 1 BAG IV SCH (21:30)
[2020-03-04] MEDS: HYDROmorphone 1 MG/ML Syringe IVPUSH PRN (00:34)
[2020-03-04] MEDS: LORazepam 1 MG Tab PO SCH ×2 (01:00→08:31)
[2020-03-04] MEDS: NS + KCl 20mEq/L 1,000 ML IV SCH (04:50)
[2020-03-04] MEDS: oxyCODONE 5 MG Tab PO PRN ×5 (05:09→22:37)
[2020-03-04] MEDS: ceFAZolin 1 GM in Premix Bag 1 BAG IV SCH (05:54)
[2020-03-04] MEDS: Pantoprazole 40 MG Tab.CR PO SCH (07:59)
[2020-03-04] MEDS: Folic Acid 1 MG Tab PO SCH (08:00)
[2020-03-04] MEDS: Thiamine 100 MG Tab PO SCH (08:00)
[2020-03-04] MEDS: Tamsulosin 0.4 MG Cap.ER PO SCH (08:00)
[2020-03-04] MEDS: Gabapentin 400 MG Cap PO SCH ×3 (08:01→20:02)
[2020-03-04] MEDS: Citalopram 20 MG Tab PO SCH (08:02)
[2020-03-04] MEDS: Phenytoin 100 MG Cap.ER PO SCH ×2 (08:02→20:01)
[2020-03-04] MEDS: PHENobarbital 32.4 MG Tab PO SCH ×2 (08:03→20:02)
--- NOTE | 2020-03-04 10:18 | PCM.PN ---
- General Info Date of Service: 03/04/20 Subjective Update: No acute events overnight. Patient was a little bit confused overnight and tried to stand up on his own a couple of times. He is confused this morning. He is not sure where he is. He thinks that his brother and grandmother are in the room with him or were here recently but he has not had any visitors. He tells me that he is not having any pain but then winces and appears to be in quite a bit of pain. Later he says his left hip hurts like crazy. His back is bothering him but he says this is about the amount that he normally endures during the day. He does not feel short of breath. He did have a fairly uneventful surgery yesterday with an IM nailing of the left hip fracture. Functional Status: Reports: Pain Controlled - Review of Systems General: Denies: Fever Musculoskeletal: Reports: Back Pain, Joint Pain (left hip ) - Patient Data Vitals - Most Recent: Last Vital Signs Temp 36.9 C 03/04/20 08:00 Pulse 98 03/04/20 08:00 Resp 16 03/04/20 08:00 BP 90/45 L 03/04/20 08:00 Pulse Ox 1 L 03/04/20 08:35 Weight - Most Recent: 58.96 kg I&O - Last 24 Hours: Intake & Output 03/03/20 03/04/20 03/04/20 22:59 06:59 14:59 Intake Total 450 1641 460 Output Total 450 650 Balance 0 991 460 Lab Results Last 24 Hours: Laboratory Results - last 24 hr 03/03/20 03/04/20 03/04/20 Range/Units 10:24 05:00 05:00 WBC 7.9 (4.5-11.0) K/uL RBC 3.03 L (4.30-5.90) M/uL Hgb 10.2 L D (12.0-15.0) g/dL Hct 31.9 L (40.0-54.0) % MCV 105 H (80-98) fL MCH 34 H (27-31) pg MCHC 32 (32-36) % Plt Count 115 L (150-400) K/uL Sodium 136 L (140-148) mmol/L Potassium 4.7 (3.6-5.2) mmol/L Chloride 101 (100-108) mmol/L Carbon Dioxide 31 (21-32) mmol/L Anion Gap 8.7 (5.0-14.0) mmol/L BUN 6 L (7-18) mg/dL Creatinine 0.5 L (0.8-1.3) mg/dL Est Cr Clr Drug Dosing 116.28 mL/min Estimated GFR (MDRD) > 60 (>60) Glucose 102 (74-106) mg/dL Calcium 7.7 L (8.5-10.1) mg/dL SARS Virus RNA (PCR) Negative (NEGATIVE) Med Orders - Current: Current Medications Acetaminophen (Tylenol) 650 mg PO Q4H PRN PRN Reason: Pain (Mild 1-3)/fever Albuterol (Proventil Neb Soln) 2.5 mg NEB Q4H PRN PRN Reason: Shortness Of Breath/wheezing Citalopram Hydrobromide (Celexa) 20 mg PO DAILY [facility] [place] Last Admin: 03/04/20 08:02 Dose: 20 mg Documented by: Clonidine HCl (Catapres) 0.1 mg PO BID [facility] [place] Last Admin: 03/03/20 21:29 Dose: 0.1 mg Documented by: Enoxaparin Sodium (Lovenox) 30 mg SUBCUT Q24H [facility] [place] Last Admin: 03/03/20 17:55 Dose: 30 mg Documented by: Folic Acid (Folic Acid) 1 mg PO DAILY [facility] [place] Last Admin: 03/04/20 08:00 Dose: 1 mg Documented by: Gabapentin (Neurontin) 400 mg PO TID [facility] [place] Last Admin: 03/04/20 08:01 Dose: 400 mg Documented by: Hydromorphone HCl (Dilaudid) 1 mg IVPUSH Q2H PRN PRN Reason: Pain (severe 7-10) Last Admin: 03/04/20 00:34 Dose: 1 mg Documented by: Potassium Chloride/Sodium Chloride (Normal Saline With 20 Meq Kcl) 1,000 mls @ 50 mls/hr IV ASDIRECTED [facility] [place] Lorazepam (Ativan) 0.5 mg IVPUSH Q4H PRN PRN Reason: Nausea/Vomiting Last Admin: 03/03/20 13:18 Dose: 0.5 mg Documented by: Lorazepam (Ativan) 0 mg PO ASDIRECTED [facility] [place]; Protocol Last Admin: 03/04/20 08:31 Dose: 1 mg Documented by: Lorazepam (Ativan) 0 mg IV ASDIRECTED [facility] [place]; Protocol Last Admin: 03/02/20 20:06 Dose: 1 mg Documented by: Losartan Potassium (Cozaar) 50 mg PO DAILY [facility] [place] Last Admin: 03/03/20 09:11 Dose: 50 mg Documented by: Magnesium Hydroxide (Milk Of Magnesia) 30 ml PO Q12H PRN PRN Reason: Constipation Melatonin (Melatonin) 9 mg PO BEDTIME [facility] [place] Last Admin: 03/03/20 21:29 Dose: 9 mg Documented by: Ondansetron HCl (Zofran) 4 mg IV Q6H PRN PRN Reason: Nausea/Vomiting Ondansetron HCl (Zofran Odt) 4 mg PO Q6H PRN PRN Reason: Nausea able to take PO Oxycodone HCl (Oxycodone) 5 - 10 mg PO Q4H PRN PRN Reason: Pain Last Admin: 03/04/20 05:09 Dose: 10 mg Documented by: Pantoprazole Sodium (Protonix) 40 mg PO ACBREAKFAST [facility] [place] Last Admin: 03/04/20 07:59 Dose: 40 mg Documented by: Phenobarbital (Phenobarbital) 97.2 mg PO BID [facility] [place] Last Admin: 03/04/20 08:03 Dose: 97.2 mg Documented by: Phenytoin Sodium (Phenytoin) 200 mg PO BID [facility] [place] Last Admin: 03/04/20 08:02 Dose: 200 mg Documented by: Senna/Docusate Sodium (Senna Plus) 1 tab PO DAILY [facility] [place] Last Admin: 03/04/20 08:00 Dose: 1 tab Documented by: Sodium Chloride (Saline Flush) 10 ml FLUSH ASDIRECTED PRN PRN Reason: Keep Vein Open Last Admin: 03/02/20 13:19 Dose: 10 ml Documented by: Tamsulosin HCl (Flomax) 0.4 mg PO DAILY [facility] [place] Last Admin: 03/04/20 08:00 Dose: 0.4 mg Documented by: Thiamine HCl (Vitamin B-1) 100 mg PO DAILY [facility] [place] Last Admin: 03/04/20 08:00 Dose: 100 mg Documented by: Discontinued Medications Fentanyl (Sublimaze) Confirm Administered Dose 100 mcg .ROUTE .[facility]-MED ONE Stop: 03/03/20 14:46 Potassium Chloride/Sodium Chloride (Normal Saline With 20 Meq Kcl) 1,000 mls @ 125 mls/hr IV ASDIRECTED [facility] [place] Last Admin: 03/04/20 04:50 Dose: 125 mls/hr Documented by: Potassium Chloride 20 meq/Lidocaine HCl 2 ml/ Sodium Chloride 112 mls @ 56 mls/hr IV ONETIME ONE Stop: 03/02/20 19:29 Last Admin: 03/02/20 18:05 Dose: 56 mls/hr Documented by: Cefazolin Sodium/Dextrose 2 gm (/ Premix) 50 mls @ 100 mls/hr IV ONETIME ONE Stop: 03/03/20 13:29 Last Admin: 03/03/20 14:35 Dose: 100 mls/hr Documented by: Lactated Ringer's (Ringers, Lactated) Confirm Administered Dose 1,000 mls @ as directed .ROUTE .ST[facility]-MED ONE Stop: 03/03/20 15:47 Cefazolin Sodium/Dextrose 1 gm (/ Premix) 50 mls @ 100 mls/hr IV Q8HR [facility] [place] Stop: 03/04/20 06:29 Last Admin: 03/04/20 05:54 Dose: 100 mls/hr Documented by: Lidocaine HCl (Xylocaine 2% Jelly) 10 ml MUCMEM ONETIME ONE Stop: 03/02/20 17:49 Last Admin: 03/02/20 18:21 Dose: 10 ml Documented by: Lorazepam (Ativan) 1 mg IVPUSH ONETIME ONE Stop: 03/02/20 13:08 Last Admin: 03/02/20 13:17 Dose: 1 mg Documented by: Midazolam HCl (Versed 1 Mg/Ml) Confirm Administered Dose 2 mg .ROUTE .STK-MED ONE Stop: 03/03/20 14:46 Potassium Chloride (Klor-Con M20) 20 meq PO ONETIME ONE Stop: 03/02/20 17:01 Last Admin: 03/02/20 17:47 Dose: 20 meq Documented by: Propofol (Diprivan 20 Ml) Confirm Administered Dose 200 mg .ROUTE .STK-MED ONE Stop: 03/03/20 14:47 - Exam Quality Assessment: Supplemental Oxygen General: Alert, Cooperative, No Acute Distress. No: Oriented HEENT: Pupils Equal Lungs: Clear to Auscultation, Normal Respiratory Effort Cardiovascular: Regular Rate, Regular Rhythm GI/Abdominal Exam: Normal Bowel Sounds, Soft, No Distention Extremities: No Pedal Edema. No: Increased Warmth Peripheral Pulses: 2+: Dorsalis Pedis (L), Dorsalis Pedis (R) Skin: Warm, Dry Wound/Incisions: Dressing Dry and Intact Psy/Mental Status: Alert, Hallucinations (said brother was in the room and grandma was across the haert ). No: Agitated Sepsis Event Note - Evaluation Sepsis Screening Result: No Definite Risk - Focused Exam Vital Signs: Vital Signs Temp Pulse Resp BP Pulse Ox Pulse Ox 03/04/20 08:35 1 L 03/04/20 08:00 36.9 C 98 16 90/45 L 98 03/04/20 05:47 36.3 C 101 H 18 119/54 L 96 03/04/20 04:02 36.2 C 93 18 95/50 L 95 03/04/20 02:07 36.2 C 90 18 106/50 L 97 03/04/20 00:15 100 18 121/56 L 97 - Problem List & Annotations (1) Intertrochanteric fracture of left hip SNOMED Code(s): 009213891, 87057174050973425 Code(s): S72.142A - DISPLACED INTERTROCHANTERIC FRACTURE OF LEFT FEMUR, INIT Status: Acute Current Visit: Yes Qualifiers: Encounter type: initial encounter Fracture type: closed Fracture alignment: nondisplaced Qualified Code(s): S72.145A - Nondisplaced intertrochanteric fracture of left femur, initial encounter for closed fracture (2) Nasal bone fractures SNOMED Code(s): 548277619 Code(s): S02.2XXA - FRACTURE OF NASAL BONES, INIT ENCNTR FOR CLOSED FRACTURE Status: Acute Current Visit: Yes Qualifiers: Encounter type: initial encounter Fracture type: closed Qualified Code(s): S02.2XXA - Fracture of nasal bones, initial encounter for closed fracture (3) Abrasions of multiple sites SNOMED Code(s): 336449222, 387051113 Code(s): T07.XXXA - UNSPECIFIED MULTIPLE INJURIES, INITIAL ENCOUNTER Status: Acute Current Visit: Yes (4) Alcohol intoxication SNOMED Code(s): 69545470 Code(s): F10.929 - ALCOHOL USE, UNSPECIFIED WITH INTOXICATION, UNSPECIFIED Status: Acute Current Visit: No Qualifiers: Complication of substance-induced condition: with delirium Qualified Code(s): F10.921 - Alcohol use, unspecified with intoxication delirium (5) Alcohol abuse SNOMED Code(s): 14481225 Code(s): F10.10 - ALCOHOL ABUSE, UNCOMPLICATED Status: Acute Current Visit: No (6) Hypokalemia SNOMED Code(s): 58244743 Code(s): E87.6 - HYPOKALEMIA Status: Acute Current Visit: Yes (7) Seizure disorder SNOMED Code(s): 603294089 Code(s): G40.909 - EPILEPSY, UNSP, NOT INTRACTABLE, WITHOUT STATUS EPIL EPTICUS Status: Chronic Priority: Low Current Visit: No (8) Chronic thoracic back pain SNOMED Code(s): 662668096085671 Code(s): M54.6 - PAIN IN THORACIC SPINE; G89.29 - OTHER CHRONIC PAIN Status: Chronic Current Visit: No Qualifiers: Back pain laterality: midline Qualified Code(s): M54.6 - Pain in thoracic spine; G89.29 - Other chronic pain - Problem List Review Problem List Initiated/Reviewed/Updated: Yes - My Orders Last 24 Hours: My Active Orders 03/04/20 10:30 NS + KCl 20mEq/L [Normal Saline with 20 mEq KCl] 1,000 ml IV ASDIRECTED 03/04/20 16:30 Insert Chavarria Catheter [Insert Urinary Catheter] [OM.PC] Q24H 03/05/20 05:00 CBC W/O DIFF,HEMOGRAM [HEME] Timed (1) - Plan Plan:: ASSESSMENT AND PLAN - Nondisplaced intertrochanteric fracture of the left hip-secondary to fall with trauma at home. Status post IM nailing on 03/03. He can be weightbearing as tolerated. Pain control adequate at this time. -Pain control -Weightbearing as tolerated -Surgical consultation with Dr Romeo Scott -Physical therapy when stable postoperatively -Anticipate 1 month of anticoagulation postoperatively with his history of DVT Alcohol abuse with withdrawal and delirium-there is evidence for withdrawal at this time including hallucinations. Blood pressure is on the low side of normal. He has received small amounts of lorazepam so far. -WA protocol with Lorazepam in case he has any withdrawal -Scheduled gabapentin -Melatonin at bedtime Hypokalemia-improved with supplementation. Seizure disorder-no issues so far. -Continue home medications Maintenance issues - - DVT prophylaxis -enoxaparin x1 month - GI prophylaxis -continue home PPI - Nutrition -regular diet - Chavarria catheter -placed for strict intake and output monitoring, plan to reassess tomorrow Disposition -anticipate [facility] for [facility] rehab Primary care physician - Dr Rito Sotelo M.D.
[2020-03-04] MEDS: cloNIDine 0.1 MG Tab PO SCH (10:19)
[2020-03-04] MEDS: Losartan 50 MG Tab PO SCH (10:19)
[2020-03-04] MEDS ORDERED: NS + KCl 20mEq/L 1,000 ML IV SCH (10:30)
[2020-03-04] MEDS: Enoxaparin 30 MG/0.3 ML Syringe SUBCUT SCH (17:49)
[2020-03-04] MEDS: Melatonin 3 MG Tab PO SCH (20:01)
[2020-03-05] MEDS: LORazepam 1 MG Tab PO SCH ×4 (00:27→11:31)
[2020-03-05] MEDS: LORazepam 2 MG/ML SDV IV SCH ×10 (03:36→21:54)
[2020-03-05] MEDS: HYDROmorphone 1 MG/ML Syringe IVPUSH PRN (04:04)
[2020-03-05] MEDS: Pantoprazole 40 MG Tab.CR PO SCH (08:51)
--- NOTE | 2020-03-05 09:42 | PCM.PN ---
- General Info Date of Service: 03/05/20 Subjective Update: No acute events overnight. He has been hallucinating some and has received a couple of doses of oral lorazepam. He is very lethargic this morning and not able to answer any questions. He does appear comfortable. Vital signs are stable. Laboratory studies fairly unremarkable. Urine output has been adequate. - Review of Systems General: Denies: Fever Psychiatric: Reports: Confusion - Patient Data Vitals - Most Recent: Last Vital Signs Temp 37 C 03/05/20 08:00 Pulse 87 03/05/20 08:00 Resp 15 03/05/20 08:00 BP 104/61 03/05/20 08:00 Pulse Ox 97 03/05/20 08:00 Weight - Most Recent: 58.96 kg I&O - Last 24 Hours: Intake & Output 03/04/20 03/05/20 03/05/20 22:59 06:59 14:59 Intake Total 740 Output Total 888 222 9943 Balance -110 -400 -1000 Lab Results Last 24 Hours: Laboratory Results - last 24 hr 03/05/20 Range/Units 05:00 WBC 7.7 (4.5-11.0) K/uL RBC 2.91 L (4.30-5.90) M/uL Hgb 9.9 L (12.0-15.0) g/dL Hct 30.6 L (40.0-54.0) % MCV 105 H (80-98) fL MCH 34 H (27-31) pg MCHC 32 (32-36) % Plt Count 127 L (150-400) K/uL Med Orders - Current: Current Medications Acetaminophen (Tylenol) 650 mg PO Q4H PRN PRN Reason: Pain (Mild 1-3)/fever Albuterol (Proventil Neb Soln) 2.5 mg NEB Q4H PRN PRN Reason: Shortness Of Breath/wheezing Citalopram Hydrobromide (Celexa) 20 mg PO DAILY [facility] Last Admin: 03/04/20 08:02 Dose: 20 mg Documented by: Clonidine HCl (Catapres) 0.1 mg PO BID [facility] Last Admin: 03/04/20 10:19 Dose: Not Given Documented by: Enoxaparin Sodium (Lovenox) 30 mg SUBCUT Q24H [facility] Last Admin: 03/04/20 17:49 Dose: 30 mg Documented by: Folic Acid (Folic Acid) 1 mg PO DAILY [facility] Last Admin: 03/04/20 08:00 Dose: 1 mg Documented by: Gabapentin (Neurontin) 400 mg PO TID [facility] Last Admin: 03/04/20 20:02 Dose: 400 mg Documented by: Hydromorphone HCl (Dilaudid) 1 mg IVPUSH Q2H PRN PRN Reason: Pain (severe 7-10) Last Admin: 03/05/20 04:04 Dose: 1 mg Documented by: Potassium Chloride/Sodium Chloride (Normal Saline With 20 Meq Kcl) 1,000 mls @ 50 mls/hr IV ASDIRECTED [facility] Last Admin: 03/04/20 17:50 Dose: 50 mls/hr Documented by: Lorazepam (Ativan) 0.5 mg IVPUSH Q4H PRN PRN Reason: Nausea/Vomiting Last Admin: 03/03/20 13:18 Dose: 0.5 mg Documented by: Lorazepam (Ativan) 0 mg PO ASDIRECTED [facility]; Protocol Last Admin: 03/05/20 02:48 Dose: 2 mg Documented by: Lorazepam (Ativan) 0 mg IV ASDIRECTED [facility]; Protocol Last Admin: 03/05/20 06:38 Dose: 1 mg Documented by: Losartan Potassium (Cozaar) 50 mg PO DAILY [facility] Last Admin: 03/04/20 10:19 Dose: Not Given Documented by: Magnesium Hydroxide (Milk Of Magnesia) 30 ml PO Q12H PRN PRN Reason: Constipation Melatonin (Melatonin) 9 mg PO BEDTIME [facility] Last Admin: 03/04/20 20:01 Dose: 9 mg Documented by: Ondansetron HCl (Zofran) 4 mg IV Q6H PRN PRN Reason: Nausea/Vomiting Ondansetron HCl (Zofran Odt) 4 mg PO Q6H PRN PRN Reason: Nausea able to take PO Oxycodone HCl (Oxycodone) 5 - 10 mg PO Q4H PRN PRN Reason: Pain Last Admin: 03/04/20 22:37 Dose: 10 mg Documented by: Pantoprazole Sodium (Protonix) 40 mg PO ACBREAKFAST [facility] Last Admin: 03/05/20 08:51 Dose: Not Given Documented by: Phenobarbital (Phenobarbital) 97.2 mg PO BID [facility] Last Admin: 03/04/20 20:02 Dose: 97.2 mg Documented by: Phenytoin Sodium (Phenytoin) 200 mg PO BID [facility] Last Admin: 03/04/20 20:01 Dose: 200 mg Documented by: Senna/Docusate Sodium (Senna Plus) 1 tab PO DAILY [facility] Last Admin: 03/04/20 08:00 Dose: 1 tab Documented by: Sodium Chloride (Saline Flush) 10 ml FLUSH ASDIRECTED PRN PRN Reason: Keep Vein Open Last Admin: 03/02/20 13:19 Dose: 10 ml Documented by: Tamsulosin HCl (Flomax) 0.4 mg PO DAILY [facility] Last Admin: 03/04/20 08:00 Dose: 0.4 mg Documented by: Thiamine HCl (Vitamin B-1) 100 mg PO DAILY [facility] Last Admin: 03/04/20 08:00 Dose: 100 mg Documented by: Discontinued Medications Fentanyl (Sublimaze) Confirm Administered Dose 100 mcg .ROUTE .STK-MED ONE Stop: 03/03/20 14:46 Potassium Chloride/Sodium Chloride (Normal Saline With 20 Meq Kcl) 1,000 mls @ 125 mls/hr IV ASDIRECTED [facility] Last Admin: 03/04/20 04:50 Dose: 125 mls/hr Documented by: Potassium Chloride 20 meq/Lidocaine HCl 2 ml/ Sodium Chloride 112 mls @ 56 mls/hr IV ONETIME ONE Stop: 03/02/20 19:29 Last Admin: 03/02/20 18:05 Dose: 56 mls/hr Documented by: Cefazolin Sodium/Dextrose 2 gm (/ Premix) 50 mls @ 100 mls/hr IV ONETIME ONE Stop: 03/03/20 13:29 Last Admin: 03/03/20 14:35 Dose: 100 mls/hr Documented by: Lactated Ringer's (Ringers, Lactated) Confirm Administered Dose 1,000 mls @ as directed .ROUTE .STK-MED ONE Stop: 03/03/20 15:47 Cefazolin Sodium/Dextrose 1 gm (/ Premix) 50 mls @ 100 mls/hr IV Q8HR [facility] Stop: 03/04/20 06:29 Last Admin: 03/04/20 05:54 Dose: 100 mls/hr Documented by: Lidocaine HCl (Xylocaine 2% Jelly) 10 ml MUCMEM ONETIME ONE Stop: 03/02/20 17:49 Last Admin: 03/02/20 18:21 Dose: 10 ml Documented by: Lorazepam (Ativan) 1 mg IVPUSH ONETIME ONE Stop: 03/02/20 13:08 Last Admin: 03/02/20 13:17 Dose: 1 mg Documented by: Midazolam HCl (Versed 1 Mg/Ml) Confirm Administered Dose 2 mg .ROUTE .STK-MED ONE Stop: 03/03/20 14:46 Potassium Chloride (Klor-Con M20) 20 meq PO ONETIME ONE Stop: 03/02/20 17:01 Last Admin: 03/02/20 17:47 Dose: 20 meq Documented by: Propofol (Diprivan 20 Ml) Confirm Administered Dose 200 mg .ROUTE .STK-MED ONE Stop: 03/03/20 14:47 - Exam Quality Assessment: Supplemental Oxygen General: No Acute Distress, Lethargic. No: Alert HEENT: Pupils Equal Lungs: Clear to Auscultation, Normal Respiratory Effort Cardiovascular: Regular Rate, Regular Rhythm GI/Abdominal Exam: Normal Bowel Sounds, Soft, No Distention Extremities: No Pedal Edema. No: Increased Warmth Skin: Warm, Dry Wound/Incisions: Drainage (minimal blood staining on dressing). No: Erythema Psy/Mental Status: No: Alert, Agitated Sepsis Event Note - Evaluation Sepsis Screening Result: No Definite Risk - Focused Exam Vital Signs: Vital Signs Temp Pulse Resp BP Pulse Ox 03/05/20 08:00 37 C 87 15 104/61 97 03/05/20 06:00 36.4 C 93 17 110/66 95 03/05/20 04:00 97 18 126/65 97 03/05/20 02:00 91 15 117/56 L 97 03/05/20 00:00 81 14 130/56 L 96 03/04/20 22:00 37.1 C 86 17 115/51 L 92 L - Problem List & Annotations (1) Intertrochanteric fracture of left hip SNOMED Code(s): 052253448, 74914143711698602 Code(s): S72.142A - DISPLACED INTERTROCHANTERIC FRACTURE OF LEFT FEMUR, INIT Status: Acute Current Visit: Yes Qualifiers: Encounter type: initial encounter Fracture type: closed Fracture alignment: nondisplaced Qualified Code(s): S72.145A - Nondisplaced intertrochanteric fracture of left femur, initial encounter for closed fracture (2) Nasal bone fractures SNOMED Code(s): 447084959 Code(s): S02.2XXA - FRACTURE OF NASAL BONES, INIT ENCNTR FOR CLOSED FRACTURE Status: Acute Current Visit: Yes Qualifiers: Encounter type: initial encounter Fracture type: closed Qualified Code(s): S02.2XXA - Fracture of nasal bones, initial encounter for closed fracture (3) Abrasions of multiple sites SNOMED Code(s): 135851447, 834792550 Code(s): T07.XXXA - UNSPECIFIED MULTIPLE INJURIES, INITIAL ENCOUNTER Status: Acute Current Visit: Yes (4) Alcohol intoxication SNOMED Code(s): 81080522 Code(s): F10.929 - ALCOHOL USE, UNSPECIFIED WITH INTOXICATION, UNSPECIFIED Status: Acute Current Visit: No Qualifiers: Complication of substance-induced condition: with delirium Qualified Code(s): F10.921 - Alcohol use, unspecified with intoxication delirium (5) Alcohol abuse SNOMED Code(s): 35231976 Code(s): F10.10 - ALCOHOL ABUSE, UNCOMPLICATED Status: Acute Current Visit: No (6) Hypokalemia SNOMED Code(s): 27441889 Code(s): E87.6 - HYPOKALEMIA Status: Acute Current Visit: Yes (7) Seizure disorder SNOMED Code(s): 790596939 Code(s): G40.909 - EPILEPSY, UNSP, NOT INTRACTABLE, WITHOUT STATUS EPILEPTICUS Status: Chronic Priority: Low Current Visit: No (8) Chronic thoracic back pain SNOMED Code(s): 533291241757555 Code(s): M54.6 - PAIN IN THORACIC SPINE; G89.29 - OTHER CHRONIC PAIN Status: Chronic Current Visit: No Qualifiers: Back pain laterality: midline Qualified Code(s): M54.6 - Pain in thoracic spine; G89.29 - Other chronic pain - Problem List Review Problem List Initiated/Reviewed/Updated: Yes - My Orders Last 24 Hours: My Active Orders 03/04/20 10:30 NS + KCl 20mEq/L [Normal Saline with 20 mEq KCl] 1,000 ml IV ASDIRECTED 03/05/20 09:45 Dextrose 5%-1/2 Normal Saline with KCl 20 mEq @ 75 mL/Hr (1000 mL) D5 1/2 NS w/ 20 mEq/L KCl 1,000 ml IV ASDIRECTED 03/05/20 16:30 Insert Chavarria Catheter [Insert Urinary Catheter] [OM.PC] Q24H - Plan Plan:: ASSESSMENT AND PLAN - Nondisplaced intertrochanteric fracture of the left hip-secondary to fall with trauma at home. Status post IM nailing on 03/03. He can be weightbearing as tolerated. Pain control adequate at this time. -Pain control -Weightbearing as tolerated -Surgical follow-up per Dr Romeo Scott -Physical therapy when stable postoperatively -Anticipate 1 month of anticoagulation postoperatively with his history of DVT Alcohol abuse with withdrawal and delirium-there is evidence for withdrawal at this time including hallucinations. Lethargic today. -[facility] protocol with Lorazepam -Discontinue gabapentin -Melatonin at bedtime Hypokalemia-improved with supplementation. Seizure disorder-no issues so far. -Continue home medications Maintenance issues - - DVT prophylaxis -enoxaparin x1 month - GI prophylaxis -continue home PPI - Nutrition -regular diet - Chavarria catheter -placed for strict intake and output monitoring, plan to reassess again tomorrow Disposition -anticipate discharge to a [facility] facility for subacute rehab Primary care physician - Dr Rito Sotelo M.D.
[2020-03-05] MEDS: PHENobarbital 32.4 MG Tab PO SCH ×2 (10:02→22:24)
[2020-03-05] MEDS: Folic Acid 1 MG Tab PO SCH (10:02)
[2020-03-05] MEDS: Thiamine 100 MG Tab PO SCH (10:02)
[2020-03-05] MEDS: Tamsulosin 0.4 MG Cap.ER PO SCH (10:02)
[2020-03-05] MEDS: Phenytoin 100 MG Cap.ER PO SCH ×2 (10:02→22:19)
[2020-03-05] MEDS: Citalopram 20 MG Tab PO SCH (10:02)
[2020-03-05] MEDS: Gabapentin 400 MG Cap PO SCH (10:03)
[2020-03-05] MEDS: D5 1/2 NS w/ 20 mEq/L KCl 1,000 ML IV SCH ×2 (10:07→22:17)
[2020-03-05] MEDS: oxyCODONE 5 MG Tab PO PRN ×2 (11:31→22:17)
[2020-03-05] MEDS: Haloperidol Lactate 5 MG/ML SDV IVPUSH PRN ×2 (17:16→20:25)
[2020-03-05] MEDS: Enoxaparin 30 MG/0.3 ML Syringe SUBCUT SCH (17:59)
[2020-03-05] MEDS: Melatonin 3 MG Tab PO SCH (22:19)
[2020-03-06] MEDS: LORazepam 2 MG/ML SDV IV SCH ×6 (02:23→17:58)
[2020-03-06] MEDS: Haloperidol Lactate 5 MG/ML SDV IVPUSH PRN ×3 (02:24→11:08)
[2020-03-06] MEDS: oxyCODONE 5 MG Tab PO PRN ×2 (07:49→20:44)
[2020-03-06] MEDS: Phenytoin 100 MG Cap.ER PO SCH ×3 (07:49→20:47)
[2020-03-06] MEDS: Thiamine 100 MG Tab PO SCH ×2 (07:50→08:01)
[2020-03-06] MEDS: Tamsulosin 0.4 MG Cap.ER PO SCH ×2 (07:50→08:01)
[2020-03-06] MEDS: Pantoprazole 40 MG Tab.CR PO SCH (07:50)
[2020-03-06] MEDS: Folic Acid 1 MG Tab PO SCH ×2 (07:50→08:01)
[2020-03-06] MEDS: Citalopram 20 MG Tab PO SCH ×2 (07:50→08:02)
[2020-03-06] MEDS: PHENobarbital 32.4 MG Tab PO SCH ×3 (07:57→20:51)
--- NOTE | 2020-03-06 09:28 | PCM.PN ---
- General Info Date of Service: 03/06/20 Subjective Update: No acute events overnight. Patient remains in alcohol withdrawal. He is not able to provide any usable history. He does moan and groan and rolls around a little bit but is not able to answer any questions. He received several doses of lorazepam as well as doses of Haldol for his agitation and withdrawal. His vital signs have all been fairly stable. Lab work unremarkable. - Review of Systems General: Denies: Fever Psychiatric: Reports: Confusion - Patient Data Vitals - Most Recent: Last Vital Signs Temp 37.2 C 03/05/20 20:00 Pulse 76 03/06/20 08:00 Resp 16 03/06/20 08:00 BP 137/48 L 03/06/20 08:00 Pulse Ox 100 03/06/20 08:00 Weight - Most Recent: 58.96 kg I&O - Last 24 Hours: Intake & Output 03/05/20 03/06/20 03/06/20 22:59 06:59 14:59 Intake Total 1332 1108 Output Total 1500 1200 Balance -168 -92 Med Orders - Current: Current Medications Acetaminophen (Tylenol) 650 mg PO Q4H PRN PRN Reason: Pain (Mild 1-3)/fever Albuterol (Proventil Neb Soln) 2.5 mg NEB Q4H PRN PRN Reason: Shortness Of Breath/wheezing Citalopram Hydrobromide (Celexa) 20 mg PO DAILY [facility] Last Admin: 03/06/20 08:02 Dose: 20 mg Documented by: Clonidine HCl (Catapres) 0.1 mg PO BID [facility] Last Admin: 03/04/20 10:19 Dose: Not Given Documented by: Enoxaparin Sodium (Lovenox) 30 mg SUBCUT Q24H [facility] Last Admin: 03/05/20 17:59 Dose: 30 mg Documented by: Folic Acid (Folic Acid) 1 mg PO DAILY [facility] Last Admin: 03/06/20 08:01 Dose: 1 mg Documented by: Haloperidol Lactate (Haldol) 2.5 mg IVPUSH Q4H PRN PRN Reason: Agitation/Hallucinations Last Admin: 03/06/20 06:06 Dose: 2.5 mg Documented by: Hydromorphone HCl (Dilaudid) 1 mg IVPUSH Q2H PRN PRN Reason: Pain (severe 7-10) Last Admin: 03/05/20 04:04 Dose: 1 mg Documented by: Potassium Chloride/Dextrose/Sod Cl (D5 1/2 Ns W/ 20 Meq/L Kcl) 1,000 mls @ 75 mls/hr IV ASDIRECTED [facility] Last Admin: 03/05/20 22:17 Dose: 75 mls/hr Documented by: Lorazepam (Ativan) 0.5 mg IVPUSH Q4H PRN PRN Reason: Nausea/Vomiting Last Admin: 03/03/20 13:18 Dose: 0.5 mg Documented by: Lorazepam (Ativan) 0 mg PO ASDIRECTED [facility]; Protocol Last Admin: 03/05/20 11:31 Dose: 1 mg Documented by: Lorazepam (Ativan) 0 mg IV ASDIRECTED [facility]; Protocol Last Admin: 03/06/20 07:30 Dose: 2 mg Documented by: Losartan Potassium (Cozaar) 50 mg PO DAILY [facility] Last Admin: 03/04/20 10:19 Dose: Not Given Documented by: Magnesium Hydroxide (Milk Of Magnesia) 30 ml PO Q12H PRN PRN Reason: Constipation Melatonin (Melatonin) 9 mg PO BEDTIME [facility] Last Admin: 03/05/20 22:19 Dose: 9 mg Documented by: Ondansetron HCl (Zofran) 4 mg IV Q6H PRN PRN Reason: Nausea/Vomiting Ondansetron HCl (Zofran Odt) 4 mg PO Q6H PRN PRN Reason: Nausea able to take PO Oxycodone HCl (Oxycodone) 5 - 10 mg PO Q4H PRN PRN Reason: Pain Last Admin: 03/06/20 07:49 Dose: 10 mg Documented by: Pantoprazole Sodium (Protonix) 40 mg PO ACBREAKFAST [facility] Last Admin: 03/06/20 07:50 Dose: 40 mg Documented by: Phenobarbital (Phenobarbital) 97.2 mg PO BID [facility] Last Admin: 03/06/20 08:01 Dose: 97.2 mg Documented by: Phenytoin Sodium (Phenytoin) 200 mg PO BID [facility] Last Admin: 03/06/20 08:01 Dose: 200 mg Documented by: Senna/Docusate Sodium (Senna Plus) 1 tab PO DAILY [facility] Last Admin: 03/06/20 08:02 Dose: 1 tab Documented by: Sodium Chloride (Saline Flush) 10 ml FLUSH ASDIRECTED PRN PRN Reason: Keep Vein Open Last Admin: 03/02/20 13:19 Dose: 10 ml Documented by: Tamsulosin HCl (Flomax) 0.4 mg PO DAILY [facility] Last Admin: 03/06/20 08:01 Dose: 0.4 mg Documented by: Thiamine HCl (Vitamin B-1) 100 mg PO DAILY [facility] Last Admin: 03/06/20 08:01 Dose: 100 mg Documented by: Discontinued Medications Fentanyl (Sublimaze) Confirm Administered Dose 100 mcg .ROUTE .STK-MED ONE Stop: 03/03/20 14:46 Gabapentin (Neurontin) 400 mg PO TID [facility] Last Admin: 03/05/20 10:03 Dose: Not Given Documented by: Potassium Chloride/Sodium Chloride (Normal Saline With 20 Meq Kcl) 1,000 mls @ 125 mls/hr IV ASDIRECTED [facility] Last Admin: 03/04/20 04:50 Dose: 125 mls/hr Documented by: Potassium Chloride 20 meq/Lidocaine HCl 2 ml/ Sodium Chloride 112 mls @ 56 mls/hr IV ONETIME ONE Stop: 03/02/20 19:29 Last Admin: 03/02/20 18:05 Dose: 56 mls/hr Documented by: Cefazolin Sodium/Dextrose 2 gm (/ Premix) 50 mls @ 100 mls/hr IV ONETIME ONE Stop: 03/03/20 13:29 Last Admin: 03/03/20 14:35 Dose: 100 mls/hr Documented by: Lactated Ringer's (Ringers, Lactated) Confirm Administered Dose 1,000 mls @ as directed .ROUTE .STK-MED ONE Stop: 03/03/20 15:47 Cefazolin Sodium/Dextrose 1 gm (/ Premix) 50 mls @ 100 mls/hr IV Q8HR [facility] Stop: 03/04/20 06:29 Last Admin: 03/04/20 05:54 Dose: 100 mls/hr Documented by: Potassium Chloride/Sodium Chloride (Normal Saline With 20 Meq Kcl) 1,000 mls @ 50 mls/hr IV ASDIRECTED [facility] Last Admin: 03/04/20 17:50 Dose: 50 mls/hr Documented by: Lidocaine HCl (Xylocaine 2% Jelly) 10 ml MUCMEM ONETIME ONE Stop: 03/02/20 17:49 Last Admin: 03/02/20 18:21 Dose: 10 ml Documented by: Lorazepam (Ativan) 1 mg IVPUSH ONETIME ONE Stop: 03/02/20 13:08 Last Admin: 03/02/20 13:17 Dose: 1 mg Documented by: Midazolam HCl (Versed 1 Mg/Ml) Confirm Administered Dose 2 mg .ROUTE .STK-MED ONE Stop: 03/03/20 14:46 Potassium Chloride (Klor-Con M20) 20 meq PO ONETIME ONE Stop: 03/02/20 17:01 Last Admin: 03/02/20 17:47 Dose: 20 meq Documented by: Propofol (Diprivan 20 Ml) Confirm Administered Dose 200 mg .ROUTE .STK-MED ONE Stop: 03/03/20 14:47 - Exam Quality Assessment: Supplemental Oxygen General: Mild Distress. No: Alert, Oriented Lungs: Clear to Auscultation, Normal Respiratory Effort Cardiovascular: Regular Rate, Regular Rhythm GI/Abdominal Exam: Normal Bowel Sounds, Soft, No Distention Extremities: No Pedal Edema. No: Increased Warmth Skin: Warm, Dry Wound/Incisions: Dressing Dry and Intact, Other (small amount of blood soaking through the dressing) Psy/Mental Status: Agitated. No: Alert Sepsis Event Note - Evaluation Sepsis Screening Result: No Definite Risk - Focused Exam Vital Signs: Vital Signs Pulse Resp BP Pulse Ox 03/06/20 08:00 76 16 137/48 L 100 03/06/20 06:00 83 12 94/37 L 98 03/06/20 04:00 76 17 112/83 93 L 03/06/20 02:00 97 12 116/53 L 93 L 03/06/20 00:00 82 18 104/53 L 100 03/05/20 22:00 94 22 H 123/72 98 - Problem List & Annotations (1) Intertrochanteric fracture of left hip SNOMED Code(s): 669745891, 72742333132074540 Code(s): S72.142A - DISPLACED INTERTROCHANTERIC FRACTURE OF LEFT FEMUR, INIT Status: Acute Current Visit: Yes Qualifiers: Encounter type: initial encounter Fracture type: closed Fracture alignment: nondisplaced Qualified Code(s): S72.145A - Nondisplaced intertrochanteric fracture of left femur, initial encounter for closed fracture (2) Nasal bone fractures SNOMED Code(s): 242381933 Code(s): S02.2XXA - FRACTURE OF NASAL BONES, INIT ENCNTR FOR CLOSED FRACTURE Status: Acute Current Visit: Yes Qualifiers: Encounter type: initial encounter Fracture type: closed Qualified Code(s): S02.2XXA - Fracture of nasal bones, initial encounter for closed fracture (3) Abrasions of multiple sites SNOMED Code(s): 934759818, 349794360 Code(s): T07.XXXA - UNSPECIFIED MULTIPLE INJURIES, INITIAL ENCOUNTER Status: Acute Current Visit: Yes (4) Alcohol intoxication SNOMED Code(s): 07417585 Code(s): F10.929 - ALCOHOL USE, UNSPECIFIED WITH INTOXICATION, UNSPECIFIED Status: Acute Current Visit: No Qualifiers: Complication of substance-induced condition: with delirium Qualified Code(s): F10.921 - Alcohol use, unspecified with intoxication delirium (5) Alcohol abuse SNOMED Code(s): 38091217 Code(s): F10.10 - ALCOHOL ABUSE, UNCOMPLICATED Status: Acute Current Visit: No (6) Hypokalemia SNOMED Code(s): 66683628 Code(s): E87.6 - HYPOKALEMIA Status: Acute Current Visit: Yes (7) Seizure disorder SNOMED Code(s): 758104854 Code(s): G40.909 - EPILEPSY, UNSP, NOT INTRACTABLE, WITHOUT STATUS EPILEPTICUS Status: Chronic Priority: Low Current Visit: No (8) Chronic thoracic back pain SNOMED Code(s): 567898433740487 Code(s): M54.6 - PAIN IN THORACIC SPINE; G89.29 - OTHER CHRONIC PAIN Status: Chronic Current Visit: No Qualifiers: Back pain laterality: midline Qualified Code(s): M54.6 - Pain in thoracic spine; G89.29 - Other chronic pain - Problem List Review Problem List Initiated/Reviewed/Updated: Yes - My Orders Last 24 Hours: My Active Orders 03/05/20 09:45 D5 1/2 NS w/ 20 mEq/L KCl 1,000 ml IV ASDIRECTED 03/05/20 16:45 Haloperidol Lactate [Haldol] 2.5 mg IVPUSH Q4H PRN 03/06/20 09:27 DC Chavarria Catheter [Urinary Catheter Removal] [RC] PER UNIT ROUTINE 03/07/20 05:00 BASIC METABOLIC PANEL,BMP [CHEM] Timed CBC W/O DIFF,HEMOGRAM [HEME] Timed (1) - Plan Plan:: ASSESSMENT AND PLAN - Nondisplaced intertrochanteric fracture of the left hip-secondary to fall with trauma at home. Status post IM nailing on 03/03. He can be weightbearing as tolerated. Pain control seems adequate but difficult to tell because he is not able to answer any questions. -Pain control -Weightbearing as tolerated -Surgical follow-up per Dr Romeo Scott -Physical therapy when stable postoperatively -Anticipate 1 month of anticoagulation postoperatively with his history of DVT Alcohol abuse with withdrawal and delirium-there is evidence for withdrawal at this time including hallucinations. Restless and mildly agitated. Receiving regular doses of lorazepam and some Haldol. -Continue gentle IV fluids -CIWA protocol with Lorazepam -Haldol as needed for agitation/hallucinations -Melatonin at bedtime Hypokalemia-improved with supplementation. Seizure disorder-no issues so far. -Continue home medications Maintenance issues - - DVT prophylaxis -enoxaparin x1 month - GI prophylaxis -continue home PPI - Nutrition -regular diet when he is more alert and interactive - Chavarria catheter -will be removed today as the patient is frequently pulling at this and is at high risk for injury. Urine output has been adequate Disposition -anticipate discharge to a alf facility for subacute rehab Primary care physician - Dr Rito Sotelo M.D.
[2020-03-06] MEDS: D5 1/2 NS w/ 20 mEq/L KCl 1,000 ML IV SCH (11:08)
[2020-03-06] MEDS: Enoxaparin 30 MG/0.3 ML Syringe SUBCUT SCH (17:58)
[2020-03-06] MEDS: cloNIDine 0.1 MG Tab PO SCH (20:46)
[2020-03-06] MEDS: Melatonin 3 MG Tab PO SCH (20:47)
[2020-03-07] MEDS: D5 1/2 NS w/ 20 mEq/L KCl 1,000 ML IV SCH (00:35)
[2020-03-07] MEDS: oxyCODONE 5 MG Tab PO PRN ×5 (01:42→21:08)
[2020-03-07] MEDS: Pantoprazole 40 MG Tab.CR PO SCH (07:40)
[2020-03-07] MEDS: cloNIDine 0.1 MG Tab PO SCH ×2 (08:54→21:07)
[2020-03-07] MEDS: Citalopram 20 MG Tab PO SCH (08:55)
[2020-03-07] MEDS: Folic Acid 1 MG Tab PO SCH (08:55)
[2020-03-07] MEDS: Thiamine 100 MG Tab PO SCH (08:56)
[2020-03-07] MEDS: Phenytoin 100 MG Cap.ER PO SCH ×2 (08:56→21:07)
[2020-03-07] MEDS: Losartan 50 MG Tab PO SCH (08:56)
[2020-03-07] MEDS: Tamsulosin 0.4 MG Cap.ER PO SCH (08:56)
[2020-03-07] MEDS: PHENobarbital 32.4 MG Tab PO SCH ×2 (08:58→21:07)
[2020-03-07] MEDS: Acetaminophen 325 MG Tab PO PRN (09:14)
--- NOTE | 2020-03-07 15:15 | PCM.PN ---
- General Info Date of Service: 03/07/20 Subjective Update: Mr. Degroot has been stable over the last 24 hours. Alcohol withdrawal has resolved and he is alert and oriented. Continues to experience pain in his hip related to his hip fracture and surgical repair. Functional Status: Reports: Pain Controlled, Tolerating Diet, Urinating - Review of Systems General: Reports: No Symptoms Pulmonary: Reports: No Symptoms Cardiovascular: Reports: No Symptoms Gastrointestinal: Reports: No Symptoms - Patient Data Vitals - Most Recent: Last Vital Signs Temp 98.3 F 03/07/20 12:24 Pulse 86 03/07/20 12:24 Resp 16 03/07/20 12:24 BP 109/52 L 03/07/20 12:24 Pulse Ox 95 03/07/20 12:24 Weight - Most Recent: 129 lb 15.753 oz I&O - Last 24 Hours: Intake & Output 03/07/20 03/07/20 03/07/20 06:59 14:59 22:59 Intake Total 1200 Balance 1200 Lab Results Last 24 Hours: Laboratory Results - last 24 hr 03/07/20 03/07/20 Range/Units 06:01 06:01 WBC 4.7 (4.5-11.0) K/uL RBC 3.27 L (4.30-5.90) M/uL Hgb 11.3 L (12.0-15.0) g/dL Hct 33.8 L (40.0-54.0) % MCV 103 H (80-98) fL MCH 35 H (27-31) pg MCHC 33 (32-36) % Plt Count 182 (150-400) K/uL Sodium 136 L (140-148) mmol/L Potassium 4.5 (3.6-5.2) mmol/L Chloride 100 (100-108) mmol/L Carbon Dioxide 31 (21-32) mmol/L Anion Gap 9.5 (5.0-14.0) mmol/L BUN 4 L (7-18) mg/dL Creatinine 0.6 L (0.8-1.3) mg/dL Est Cr Clr Drug Dosing 96.90 mL/min Estimated GFR (MDRD) > 60 (>60) Glucose 110 H (74-106) mg/dL Calcium 8.3 L (8.5-10.1) mg/dL Med Orders - Current: Current Medications Acetaminophen (Tylenol) 650 mg PO Q4H PRN PRN Reason: Pain (Mild 1-3)/fever Last Admin: 03/07/20 09:14 Dose: 650 mg Documented by: Albuterol (Proventil Neb Soln) 2.5 mg NEB Q4H PRN PRN Reason: Shortness Of Breath/wheezing Citalopram Hydrobromide (Celexa) 20 mg PO DAILY [facility] Last Admin: 03/07/20 08:55 Dose: 20 mg Documented by: Clonidine HCl (Catapres) 0.1 mg PO BID [facility] Last Admin: 03/07/20 08:54 Dose: 0.1 mg Documented by: Enoxaparin Sodium (Lovenox) 30 mg SUBCUT Q24H [facility] Last Admin: 03/06/20 17:58 Dose: 30 mg Documented by: Folic Acid (Folic Acid) 1 mg PO DAILY [facility] Last Admin: 03/07/20 08:55 Dose: 1 mg Documented by: Losartan Potassium (Cozaar) 50 mg PO DAILY [facility] Last Admin: 03/07/20 08:56 Dose: 50 mg Documented by: Magnesium Hydroxide (Milk Of Magnesia) 30 ml PO Q12H PRN PRN Reason: Constipation Last Admin: 03/07/20 09:14 Dose: 30 ml Documented by: Melatonin (Melatonin) 9 mg PO BEDTIME [facility] Last Admin: 03/06/20 20:47 Dose: 9 mg Documented by: Ondansetron HCl (Zofran Odt) 4 mg PO Q6H PRN PRN Reason: Nausea able to take PO Oxycodone HCl (Oxycodone) 5 mg PO Q4H PRN PRN Reason: Pain Pantoprazole Sodium (Protonix) 40 mg PO ACBREAKFAST [facility] Last Admin: 03/07/20 07:40 Dose: 40 mg Documented by: Phenobarbital (Phenobarbital) 97.2 mg PO BID [facility] Last Admin: 03/07/20 08:58 Dose: 97.2 mg Documented by: Phenytoin Sodium (Phenytoin) 200 mg PO BID [facility] Last Admin: 03/07/20 08:56 Dose: 200 mg Documented by: Senna/Docusate Sodium (Senna Plus) 1 tab PO DAILY [facility] Last Admin: 03/07/20 08:56 Dose: 1 tab Documented by: Sodium Chloride (Saline Flush) 10 ml FLUSH ASDIRECTED PRN PRN Reason: Keep Vein Open Last Admin: 03/02/20 13:19 Dose: 10 ml Documented by: Tamsulosin HCl (Flomax) 0.4 mg PO DAILY [facility] Last Admin: 03/07/20 08:56 Dose: 0.4 mg Documented by: Thiamine HCl (Vitamin B-1) 100 mg PO DAILY [facility] Last Admin: 03/07/20 08:56 Dose: 100 mg Documented by: Discontinued Medications Fentanyl (Sublimaze) Confirm Administered Dose 100 mcg .ROUTE .STK-MED ONE Stop: 03/03/20 14:46 Gabapentin (Neurontin) 400 mg PO TID [facility] Last Admin: 03/05/20 10:03 Dose: Not Given Documented by: Haloperidol Lactate (Haldol) 2.5 mg IVPUSH Q4H PRN PRN Reason: Agitation/Hallucinations Last Admin: 03/06/20 11:08 Dose: 2.5 mg Documented by: Hydromorphone HCl (Dilaudid) 1 mg IVPUSH Q2H PRN PRN Reason: Pain (severe 7-10) Last Admin: 03/05/20 04:04 Dose: 1 mg Documented by: Potassium Chloride/Sodium Chloride (Normal Saline With 20 Meq Kcl) 1,000 mls @ 125 mls/hr IV ASDIRECTED [facility] Last Admin: 03/04/20 04:50 Dose: 125 mls/hr Documented by: Potassium Chloride 20 meq/Lidocaine HCl 2 ml/ Sodium Chloride 112 mls @ 56 mls/hr IV ONETIME ONE Stop: 03/02/20 19:29 Last Admin: 03/02/20 18:05 Dose: 56 mls/hr Documented by: Cefazolin Sodium/Dextrose 2 gm (/ Premix) 50 mls @ 100 mls/hr IV ONETIME ONE Stop: 03/03/20 13:29 Last Admin: 03/03/20 14:35 Dose: 100 mls/hr Documented by: Lactated Ringer's (Ringers, Lactated) Confirm Administered Dose 1,000 mls @ as directed .ROUTE .STK-MED ONE Stop: 03/03/20 15:47 Cefazolin Sodium/Dextrose 1 gm (/ Premix) 50 mls @ 100 mls/hr IV Q8HR [facility] Stop: 03/04/20 06:29 Last Admin: 03/04/20 05:54 Dose: 100 mls/hr Documented by: Potassium Chloride/Sodium Chloride (Normal Saline With 20 Meq Kcl) 1,000 mls @ 50 mls/hr IV ASDIRECTED [facility] Last Admin: 03/04/20 17:50 Dose: 50 mls/hr Documented by: Potassium Chloride/Dextrose/Sod Cl (D5 1/2 Ns W/ 20 Meq/L Kcl) 1,000 mls @ 75 mls/hr IV ASDIRECTED [facility] Last Admin: 03/07/20 00:35 Dose: 75 mls/hr Documented by: Lidocaine HCl (Xylocaine 2% Jelly) 10 ml MUCMEM ONETIME ONE Stop: 03/02/20 17:49 Last Admin: 03/02/20 18:21 Dose: 10 ml Documented by: Lorazepam (Ativan) 1 mg IVPUSH ONETIME ONE Stop: 03/02/20 13:08 Last Admin: 03/02/20 13:17 Dose: 1 mg Documented by: Lorazepam (Ativan) 0.5 mg IVPUSH Q4H PRN PRN Reason: Nausea/Vomiting Last Admin: 03/03/20 13:18 Dose: 0.5 mg Documented by: Lorazepam (Ativan) 0 mg PO ASDIRECTED ON [facility]; Protocol Last Admin: 03/05/20 11:31 Dose: 1 mg Documented by: Lorazepam (Ativan) 0 mg IV ASDIRECTED ON [facility]; Protocol Last Admin: 03/06/20 17:58 Dose: 2 mg Documented by: Midazolam HCl (Versed 1 Mg/Ml) Confirm Administered Dose 2 mg .ROUTE .STK-MED ONE Stop: 03/03/20 14:46 Ondansetron HCl (Zofran) 4 mg IV Q6H PRN PRN Reason: Nausea/Vomiting Oxycodone HCl (Oxycodone) 5 - 10 mg PO Q4H PRN PRN Reason: Pain Last Admin: 03/07/20 10:11 Dose: 5 mg Documented by: Potassium Chloride (Klor-Con M20) 20 meq PO ONETIME ONE Stop: 03/02/20 17:01 Last Admin: 03/02/20 17:47 Dose: 20 meq Documented by: Propofol (Diprivan 20 Ml) Confirm Administered Dose 200 mg .ROUTE .STK-MED ONE Stop: 03/03/20 14:47 - Exam Quality Assessment: DVT Prophylaxis General: Alert, Oriented, Cooperative, Moderate Distress Lungs: Clear to Auscultation, Normal Respiratory Effort Cardiovascular: Regular Rate, Regular Rhythm, No Murmurs GI/Abdominal Exam: Soft, Non-Tender, No Organomegaly, No Distention Extremities: Non-Tender, No Pedal Edema Sepsis Event Note - Evaluation Sepsis Screening Result: No Definite Risk - Focused Exam Vital Signs: Vital Signs Temp Pulse Resp BP BP Pulse Ox 03/07/20 12:24 98.3 F 86 16 109/52 L 95 03/07/20 08:56 105/48 L 03/07/20 08:54 105/48 L 03/07/20 07:36 98.5 F 89 16 105/48 L 96 03/07/20 04:00 74 - Problem List Review Problem List Initiated/Reviewed/Updated: Yes - My Orders Last 24 Hours: My Active Orders 03/07/20 15:08 oxyCODONE 5 mg PO Q4H PRN 03/07/20 16:00 Vital Signs [RC] Q8H - Plan Plan:: ASSESSMENT AND PLAN - Nondisplaced intertrochanteric fracture of the left hip-secondary to fall with trauma at home. Status post IM nailing on 03/03. He can be weightbearing as tolerated. We will and walking short distances with assistance -Pain control -Weightbearing as tolerated -Surgical follow-up per Dr Romeo Scott -Physical therapy when stable postoperatively -Anticipate 1 month of anticoagulation postoperatively with his history of DVT Alcohol abuse with withdrawal and delirium-resolved -Melatonin at bedtime Hypokalemia-improved with supplementation. Seizure disorder-no issues so far. -Continue home medications Maintenance issues - - DVT prophylaxis -enoxaparin x1 month - GI prophylaxis -continue home PPI - Nutrition -regular diet when he is more alert and interactive - Chavarria catheter -will be removed today as the patient is frequently pulling at this and is at high risk for injury. Urine output has been adequate Disposition -anticipate discharge to a snf facility for subacute rehab Primary care physician - Dr Rito Castillo
[2020-03-07] MEDS: Enoxaparin 30 MG/0.3 ML Syringe SUBCUT SCH (17:59)
[2020-03-07] MEDS: Melatonin 3 MG Tab PO SCH (21:07)
[2020-03-08] MEDS: oxyCODONE 5 MG Tab PO PRN ×5 (02:51→20:21)
[2020-03-08] MEDS: Pantoprazole 40 MG Tab.CR PO SCH (07:28)
[2020-03-08] MEDS: Acetaminophen 325 MG Tab PO PRN ×3 (08:04→18:46)
[2020-03-08] MEDS: PHENobarbital 32.4 MG Tab PO SCH ×2 (08:04→20:21)
[2020-03-08] MEDS: Phenytoin 100 MG Cap.ER PO SCH ×2 (08:05→20:20)
[2020-03-08] MEDS: cloNIDine 0.1 MG Tab PO SCH ×2 (08:05→20:21)
[2020-03-08] MEDS: Folic Acid 1 MG Tab PO SCH (08:05)
[2020-03-08] MEDS: Tamsulosin 0.4 MG Cap.ER PO SCH (08:05)
[2020-03-08] MEDS: Thiamine 100 MG Tab PO SCH (08:05)
[2020-03-08] MEDS: Citalopram 20 MG Tab PO SCH (08:05)
[2020-03-08] MEDS: Losartan 50 MG Tab PO SCH (08:06)
--- NOTE | 2020-03-08 17:12 | PCM.PN ---
- General Info Date of Service: 03/08/20 Subjective Update: Mr. Degroot has been stable since yesterday. Continues to experience pain related to his left hip fracture and surgical repair. Functional Status: Reports: Tolerating Diet, Ambulating, Urinating - Review of Systems General: Reports: Weakness. Denies: Fever, Chills Pulmonary: Reports: No Symptoms Cardiovascular: Reports: No Symptoms Gastrointestinal: Reports: No Symptoms - Patient Data Vitals - Most Recent: Last Vital Signs Temp 97.6 F 03/08/20 13:00 Pulse 93 03/08/20 13:00 Resp 16 03/08/20 13:00 BP 93/52 L 03/08/20 13:00 Pulse Ox 92 L 03/08/20 13:00 Weight - Most Recent: 129 lb 15.753 oz I&O - Last 24 Hours: Intake & Output 03/08/20 03/08/20 03/08/20 06:59 14:59 22:59 Intake Total 200 Output Total 200 Balance 200 -200 Med Orders - Current: Current Medications Acetaminophen (Tylenol) 650 mg PO Q4H PRN PRN Reason: Pain (Mild 1-3)/fever Last Admin: 03/08/20 14:40 Dose: 650 mg Documented by: Albuterol (Proventil Neb Soln) 2.5 mg NEB Q4H PRN PRN Reason: Shortness Of Breath/wheezing Citalopram Hydrobromide (Celexa) 20 mg PO DAILY [facility] Last Admin: 03/08/20 08:05 Dose: 20 mg Documented by: Clonidine HCl (Catapres) 0.1 mg PO BID [facility] Last Admin: 03/08/20 08:05 Dose: 0.1 mg Documented by: Enoxaparin Sodium (Lovenox) 30 mg SUBCUT Q24H [facility] Last Admin: 03/07/20 17:59 Dose: 30 mg Documented by: Folic Acid (Folic Acid) 1 mg PO DAILY [facility] Last Admin: 03/08/20 08:05 Dose: 1 mg Documented by: Losartan Potassium (Cozaar) 50 mg PO DAILY [facility] Last Admin: 03/08/20 08:06 Dose: 50 mg Documented by: Magnesium Hydroxide (Milk Of Magnesia) 30 ml PO Q12H PRN PRN Reason: Constipation Last Admin: 03/07/20 09:14 Dose: 30 ml Documented by: Melatonin (Melatonin) 9 mg PO BEDTIME [facility] Last Admin: 03/07/20 21:07 Dose: 9 mg Documented by: Ondansetron HCl (Zofran Odt) 4 mg PO Q6H PRN PRN Reason: Nausea able to take PO Oxycodone HCl (Oxycodone) 5 mg PO Q4H PRN PRN Reason: Pain Last Admin: 03/08/20 15:52 Dose: 5 mg Documented by: Pantoprazole Sodium (Protonix) 40 mg PO ACBREAKFAST [facility] Last Admin: 03/08/20 07:28 Dose: 40 mg Documented by: Phenobarbital (Phenobarbital) 97.2 mg PO BID [facility] Last Admin: 03/08/20 08:04 Dose: 97.2 mg Documented by: Phenytoin Sodium (Phenytoin) 200 mg PO BID [facility] Last Admin: 03/08/20 08:05 Dose: 200 mg Documented by: Senna/Docusate Sodium (Senna Plus) 1 tab PO DAILY [facility] Last Admin: 03/08/20 08:06 Dose: 1 tab Documented by: Sodium Chloride (Saline Flush) 10 ml FLUSH ASDIRECTED PRN PRN Reason: Keep Vein Open Last Admin: 03/02/20 13:19 Dose: 10 ml Documented by: Tamsulosin HCl (Flomax) 0.4 mg PO DAILY [facility] Last Admin: 03/08/20 08:05 Dose: 0.4 mg Documented by: Thiamine HCl (Vitamin B-1) 100 mg PO DAILY [facility] Last Admin: 03/08/20 08:05 Dose: 100 mg Documented by: Discontinued Medications Fentanyl (Sublimaze) Confirm Administered Dose 100 mcg .ROUTE .[facility]-MED ONE Stop: 03/03/20 14:46 Gabapentin (Neurontin) 400 mg PO TID [facility] Last Admin: 03/05/20 10:03 Dose: Not Given Documented by: Haloperidol Lactate (Haldol) 2.5 mg IVPUSH Q4H PRN PRN Reason: Agitation/Hallucinations Last Admin: 03/06/20 11:08 Dose: 2.5 mg Documented by: Hydromorphone HCl (Dilaudid) 1 mg IVPUSH Q2H PRN PRN Reason: Pain (severe 7-10) Last Admin: 03/05/20 04:04 Dose: 1 mg Documented by: Potassium Chloride/Sodium Chloride (Normal Saline With 20 Meq Kcl) 1,000 mls @ 125 [facility] Last Admin: 03/04/20 04:50 Dose: 125 mls/hr Documented by: Potassium Chloride 20 meq/Lidocaine HCl 2 ml/ Sodium Chloride 112 mls @ 56 mls/hr IV ONETIME ONE Stop: 03/02/20 19:29 Last Admin: 03/02/20 18:05 Dose: 56 mls/hr Documented by: Cefazolin Sodium/Dextrose 2 gm (/ Premix) 50 mls @ 100 mls/hr IV ONETIME ONE Stop: 03/03/20 13:29 Last Admin: 03/03/20 14:35 Dose: 100 mls/hr Documented by: Lactated Ringer's (Ringers, Lactated) Confirm Administered Dose 1,000 mls @ as directed .ROUTE .STK-MED ONE Stop: 03/03/20 15:47 Cefazolin Sodium/Dextrose 1 gm (/ Premix) 50 mls @ 100 mls/hr IV Q8HR [facility] Stop: 03/04/20 06:29 Last Admin: 03/04/20 05:54 Dose: 100 mls/hr Documented by: Potassium Chloride/Sodium Chloride (Normal Saline With 20 Meq Kcl) 1,000 mls @ [facility] Last Admin: 03/04/20 17:50 Dose: 50 mls/hr Documented by: Potassium Chloride/Dextrose/Sod Cl (D5 1/2 Ns W/ 20 Meq/L Kcl) 1,000 mls [facility] Last Admin: 03/07/20 00:35 Dose: 75 mls/hr Documented by: Lidocaine HCl (Xylocaine 2% Jelly) 10 ml MUCMEM ONETIME ONE Stop: 03/02/20 17:49 Last Admin: 03/02/20 18:21 Dose: 10 ml Documented by: Lorazepam (Ativan) 1 mg IVPUSH ONETIME ONE Stop: 03/02/20 13:08 Last Admin: 03/02/20 13:17 Dose: 1 mg Documented by: Lorazepam (Ativan) 0.5 mg IVPUSH Q4H PRN PRN Reason: Nausea/Vomiting Last Admin: 03/03/20 13:18 Dose: 0.5 mg Documented by: Lorazepam (Ativan) 0 mg PO ASDIRECTED BRITTANY; Protocol Last Admin: 03/05/20 11:31 Dose: 1 mg Documented by: Lorazepam (Ativan) 0 mg IV ASDIRECTED BRITTANY; Protocol Last Admin: 03/06/20 17:58 Dose: 2 mg Documented by: Midazolam HCl (Versed 1 Mg/Ml) Confirm Administered Dose 2 mg .ROUTE .STK-MED ONE Stop: 03/03/20 14:46 Ondansetron HCl (Zofran) 4 mg IV Q6H PRN PRN Reason: Nausea/Vomiting Oxycodone HCl (Oxycodone) 5 - 10 mg PO Q4H PRN PRN Reason: Pain Last Admin: 03/07/20 10:11 Dose: 5 mg Documented by: Potassium Chloride (Klor-Con M20) 20 meq PO ONETIME ONE Stop: 03/02/20 17:01 Last Admin: 03/02/20 17:47 Dose: 20 meq Documented by: Propofol (Diprivan 20 Ml) Confirm Administered Dose 200 mg .ROUTE .STK-MED ONE Stop: 03/03/20 14:47 - Exam General: Alert, Oriented, Cooperative, Moderate Distress Lungs: Clear to Auscultation, Normal Respiratory Effort Cardiovascular: Regular Rate, Regular Rhythm, No Murmurs GI/Abdominal Exam: Soft, Non-Tender, No Organomegaly, No Distention Extremities: No Pedal Edema Sepsis Event Note - Evaluation Sepsis Screening Result: No Definite Risk - Focused Exam Vital Signs: Vital Signs Temp Pulse Resp BP BP Pulse Ox 03/08/20 13:00 97.6 F 93 16 93/52 L 92 L 03/08/20 08:06 148/74 H 03/08/20 08:05 148/74 H - Problem List Review Problem List Initiated/Reviewed/Updated: Yes - Plan Plan:: ASSESSMENT AND PLAN - Nondisplaced intertrochanteric fracture of the left hip-secondary to fall with trauma at home. Status post IM nailing on 03/03. He can be weightbearing as tolerated. -Pain control -Weightbearing as tolerated -Surgical follow-up per Dr Romeo Scott -Physical therapy when stable postoperatively -Anticipate 1 month of anticoagulation postoperatively with his history of DVT Alcohol abuse with withdrawal and delirium-resolved -Melatonin at bedtime Hypokalemia-improved with supplementation. Seizure disorder-no issues so far. -Continue home medications Maintenance issues - - DVT prophylaxis -enoxaparin x1 month - GI prophylaxis -continue home PPI - Nutrition -regular diet when he is more alert and interactive - Chavraria catheter -will be removed today as the patient is frequently pulling at this and is at high risk for injury. Urine output has been adequate Disposition -anticipate discharge to a senior living facility for subacute rehab Primary care physician - Dr Rito Castillo
[2020-03-08] MEDS: Enoxaparin 30 MG/0.3 ML Syringe SUBCUT SCH (18:17)
--- NOTE | 2020-03-08 18:44 | PCM.SURGPN ---
- General Info Date of Service: 03/05/20 Date of Surgery/Procedure: 03/03/20 POD#: 2 Post-Op Diagnosis: Pertrochanteric fracture left hip. - Review of Systems Musculoskeletal: Reports: Leg Pain Neurological: Reports: Confusion Psychiatric: Reports: Confusion, Hallucinations - Patient Data Vitals - Most Recent: Last Vital Signs Temp 36.4 C 03/08/20 13:00 Pulse 93 03/08/20 13:00 Resp 16 03/08/20 13:00 BP 93/52 L 03/08/20 13:00 Pulse Ox 92 L 03/08/20 13:00 Weight - Most Recent: 58.96 kg I&O - Last 24 Hours: Intake & Output 03/08/20 03/08/20 03/08/20 06:59 14:59 22:59 Intake Total 200 640 Output Total 200 Balance 200 -200 640 Med Orders - Current: Current Medications Acetaminophen (Tylenol) 650 mg PO Q4H PRN PRN Reason: Pain (Mild 1-3)/fever Last Admin: 03/08/20 14:40 Dose: 650 mg Documented by: Albuterol (Proventil Neb Soln) 2.5 mg NEB Q4H PRN PRN Reason: Shortness Of Breath/wheezing Citalopram Hydrobromide (Celexa) 20 mg PO DAILY [facility] Last Admin: 03/08/20 08:05 Dose: 20 mg Documented by: Clonidine HCl (Catapres) 0.1 mg PO BID [facility] Last Admin: 03/08/20 08:05 Dose: 0.1 mg Documented by: Enoxaparin Sodium (Lovenox) 30 mg SUBCUT Q24H [facility] Last Admin: 03/08/20 18:17 Dose: 30 mg Documented by: Folic Acid (Folic Acid) 1 mg PO DAILY [facility] Last Admin: 03/08/20 08:05 Dose: 1 mg Documented by: Losartan Potassium (Cozaar) 50 mg PO DAILY [facility] Last Admin: 03/08/20 08:06 Dose: 50 mg Documented by: Magnesium Hydroxide (Milk Of Magnesia) 30 ml PO Q12H PRN PRN Reason: Constipation Last Admin: 03/07/20 09:14 Dose: 30 ml Documented by: Melatonin (Melatonin) 9 mg PO BEDTIME [facility] Last Admin: 03/07/20 21:07 Dose: 9 mg Documented by: Ondansetron HCl (Zofran Odt) 4 mg PO Q6H PRN PRN Reason: Nausea able to take PO Oxycodone HCl (Oxycodone) 5 mg PO Q4H PRN PRN Reason: Pain Last Admin: 03/08/20 15:52 Dose: 5 mg Documented by: Pantoprazole Sodium (Protonix) 40 mg PO ACBREAKFAST [facility] Last Admin: 03/08/20 07:28 Dose: 40 mg Documented by: Phenobarbital (Phenobarbital) 97.2 mg PO BID [facility] Last Admin: 03/08/20 08:04 Dose: 97.2 mg Documented by: Phenytoin Sodium (Phenytoin) 200 mg PO BID [facility] Last Admin: 03/08/20 08:05 Dose: 200 mg Documented by: Senna/Docusate Sodium (Senna Plus) 1 tab PO DAILY [facility] Last Admin: 03/08/20 08:06 Dose: 1 tab Documented by: Sodium Chloride (Saline Flush) 10 ml FLUSH ASDIRECTED PRN PRN Reason: Keep Vein Open Last Admin: 03/02/20 13:19 Dose: 10 ml Documented by: Tamsulosin HCl (Flomax) 0.4 mg PO DAILY [facility] Last Admin: 03/08/20 08:05 Dose: 0.4 mg Documented by: Thiamine HCl (Vitamin B-1) 100 mg PO DAILY [facility] Last Admin: 03/08/20 08:05 Dose: 100 mg Documented by: Discontinued Medications Fentanyl (Sublimaze) Confirm Administered Dose 100 mcg .ROUTE .[facility]-MED ONE Stop: 03/03/20 14:46 Gabapentin (Neurontin) 400 mg PO TID [facility] Last Admin: 03/05/20 10:03 Dose: Not Given Documented by: Haloperidol Lactate (Haldol) 2.5 mg IVPUSH Q4H PRN PRN Reason: Agitation/Hallucinations Last Admin: 03/06/20 11:08 Dose: 2.5 mg Documented by: Hydromorphone HCl (Dilaudid) 1 mg IVPUSH Q2H PRN PRN Reason: Pain (severe 7-10) Last Admin: 03/05/20 04:04 Dose: 1 mg Documented by: Potassium Chloride/Sodium Chloride (Normal Saline With 20 Meq Kcl) 1,000 mls @ 125 mls/hr IV ASDIRECTED [facility] Last Admin: 03/04/20 04:50 Dose: 125 mls/hr Documented by: Potassium Chloride 20 meq/Lidocaine HCl 2 ml/ Sodium Chloride 112 mls @ 56 mls/hr IV ONETIME ONE Stop: 03/02/20 19:29 Last Admin: 03/02/20 18:05 Dose: 56 mls/hr Documented by: Cefazolin Sodium/Dextrose 2 gm (/ Premix) 50 mls @ 100 mls/hr IV ONETIME ONE Stop: 03/03/20 13:29 Last Admin: 03/03/20 14:35 Dose: 100 mls/hr Documented by: Lactated Ringer's (Ringers, Lactated) Confirm Administered Dose 1,000 mls @ as directed .ROUTE .STK-MED ONE Stop: 03/03/20 15:47 Cefazolin Sodium/Dextrose 1 gm (/ Premix) 50 mls @ 100 mls/hr IV Q8HR [facility] Stop: 03/04/20 06:29 Last Admin: 03/04/20 05:54 Dose: 100 mls/hr Documented by: Potassium Chloride/Sodium Chloride (Normal Saline With 20 Meq Kcl) 1,000 mls @ 50 mls/hr IV ASDIRECTED [facility] Last Admin: 03/04/20 17:50 Dose: 50 mls/hr Documented by: Potassium Chloride/Dextrose/Sod Cl (D5 1/2 Ns W/ 20 Meq/L Kcl) 1,000 mls @ 75 mls/hr IV ASDIRECTED [facility] Last Admin: 03/07/20 00:35 Dose: 75 mls/hr Documented by: Lidocaine HCl (Xylocaine 2% Jelly) 10 ml MUCMEM ONETIME ONE Stop: 03/02/20 17:49 Last Admin: 03/02/20 18:21 Dose: 10 ml Documented by: Lorazepam (Ativan) 1 mg IVPUSH ONETIME ONE Stop: 03/02/20 13:08 Last Admin: 03/02/20 13:17 Dose: 1 mg Documented by: Lorazepam (Ativan) 0.5 mg IVPUSH Q4H PRN PRN Reason: Nausea/Vomiting Last Admin: 03/03/20 13:18 Dose: 0.5 mg Documented by: Lorazepam (Ativan) 0 mg PO ASDIRECTED [facility]; Protocol Last Admin: 03/05/20 11:31 Dose: 1 mg Documented by: Lorazepam (Ativan) 0 mg IV ASDIRECTED [facility]; Protocol Last Admin: 03/06/20 17:58 Dose: 2 mg Documented by: Midazolam HCl (Versed 1 Mg/Ml) Confirm Administered Dose 2 mg .ROUTE .STK-MED ONE Stop: 03/03/20 14:46 Ondansetron HCl (Zofran) 4 mg IV Q6H PRN PRN Reason: Nausea/Vomiting Oxycodone HCl (Oxycodone) 5 - 10 mg PO Q4H PRN PRN Reason: Pain Last Admin: 03/07/20 10:11 Dose: 5 mg Documented by: Potassium Chloride (Klor-Con M20) 20 meq PO ONETIME ONE Stop: 03/02/20 17:01 Last Admin: 03/02/20 17:47 Dose: 20 meq Documented by: Propofol (Diprivan 20 Ml) Confirm Administered Dose 200 mg .ROUTE .STK-MED ONE Stop: 03/03/20 14:47 - Exam Wound/Incisions: No Drainage Extremities: Leg Pain, Limited Range of Motion Skin: Warm, Dry Psy/Mental Status: Agitated, Other (confused) Sepsis Event Note - Evaluation Sepsis Screening Result: No Definite Risk - Focused Exam Vital Signs: Vital Signs Temp Pulse Resp BP BP Pulse Ox 03/08/20 13:00 36.4 C 93 16 93/52 L 92 L 03/08/20 08:06 148/74 H 03/08/20 08:05 148/74 H - Problem List & Annotations (1) Hip fracture SNOMED Code(s): 528272178 Code(s): S72.009A - FRACTURE OF UNSP PART OF NECK OF UNSP FEMUR, INIT Status: Acute Current Visit: Yes Qualifiers: Encounter type: initial encounter Fracture type: closed Laterality: left Qualified Code(s): S72.002A - Fracture of unspecified part of neck of left femur, initial encounter for closed fracture (2) Alcohol abuse SNOMED Code(s): 19783776 Code(s): F10.10 - ALCOHOL ABUSE, UNCOMPLICATED Status: Acute Current Visit: No (3) Alcohol intoxication SNOMED Code(s): 03386023 Code(s): F10.929 - ALCOHOL USE, UNSPECIFIED WITH INTOXICATION, UNSPECIFIED Status: Acute Current Visit: No Qualifiers: Complication of substance-induced condition: with delirium Qualified Code(s): F10.921 - Alcohol use, unspecified with intoxication delirium - Problem List Review Problem List Initiated/Reviewed/Updated: Yes - My Orders Last 24 Hours: Medication Orders Acetaminophen (Tylenol) 650 mg PO Q4H PRN PRN Reason: Pain (Mild 1-3)/fever Last Admin: 03/08/20 14:40 Dose: 650 mg Documented by: Admin: 03/08/20 08:04 Dose: 650 mg Documented by: Admin: 03/07/20 09:14 Dose: 650 mg Documented by: UDAY Albuterol (Proventil Neb Soln) 2.5 mg NEB Q4H PRN PRN Reason: Shortness Of Breath/wheezing Citalopram Hydrobromide (Celexa) 20 mg PO DAILY [facility] Last Admin: 03/08/20 08:05 Dose: 20 mg Documented by: [id number] Admin: 03/07/20 08:55 Dose: 20 mg Documented by: Admin: 03/06/20 08:02 Dose: 20 mg Documented by: Admin: 03/05/20 10:02 Dose: Not Given Documented by: Admin: 03/04/20 08:02 Dose: 20 mg Documented by: Admin: 03/03/20 09:11 Dose: 20 mg Documented by: JOJO Clonidine HCl (Catapres) 0.1 mg PO BID [facility] Admin: 03/08/20 08:05 Dose: 0.1 mg Documented by: Admin: 03/07/20 21:07 Dose: 0.1 mg Documented by: Admin: 03/07/20 08:54 Dose: 0.1 mg Documented by: Admin: 03/06/20 20:46 Dose: 0.1 mg Documented by: Admin: 03/04/20 10:19 Dose: Not Given Documented by: Admin: 03/03/20 21:29 Dose: 0.1 mg Documented by: Admin: 03/03/20 09:11 Dose: 0.1 mg Documented by: Admin: 03/02/20 20:10 Dose: 0.1 mg Documented by: CHUCK Enoxaparin Sodium (Lovenox) 30 mg SUBCUT Q24H [facility] Last Admin: 03/08/20 18:17 Dose: 30 mg Documented by: Admin: 03/07/20 17:59 Dose: 30 mg Documented by: Admin: 03/06/20 17:58 Dose: 30 mg Documented by: Admin: 03/05/20 17:59 Dose: 30 mg Documented by: Admin: 03/04/20 17:49 Dose: 30 mg Documented by: Admin: 03/03/20 17:55 Dose: 30 mg Documented by: BRENT Folic Acid (Folic Acid) 1 mg PO DAILY [facility] Last Admin: 03/08/20 08:05 Dose: 1 mg Documented by: Admin: 03/07/20 08:55 Dose: 1 mg Documented by: Admin: 03/06/20 08:01 Dose: 1 mg Documented by: Admin: 03/05/20 10:02 Dose: Not Given Documented by: Admin: 03/04/20 08:00 Dose: 1 mg Documented by: Admin: 03/03/20 09:11 Dose: 1 mg Documented by: JOJO Losartan Potassium (Cozaar) 50 mg PO DAILY [facility] Last Admin: 03/08/20 08:06 Dose: 50 mg Documented by: Admin: 03/07/20 08:56 Dose: 50 mg Documented by: Admin: 03/04/20 10:19 Dose: Not Given Documented by: Admin: 03/03/20 09:11 Dose: 50 mg Documented by: JOJO Magnesium Hydroxide (Milk Of Magnesia) 30 ml PO Q12H PRN PRN Reason: Constipation Last Admin: 03/07/20 09:14 Dose: 30 ml Documented by: UDAY Melatonin (Melatonin) 9 mg PO BEDTIME [facility] Last Admin: 03/07/20 21:07 Dose: 9 mg Documented by: Admin: 03/06/20 20:47 Dose: 9 mg Documented by: Admin: 03/05/20 22:19 Dose: 9 mg Documented by: Admin: 03/04/20 20:01 Dose: 9 mg Documented by: Admin: 03/03/20 21:29 Dose: 9 mg Documented by: Admin: 03/02/20 20:10 Dose: 9 mg Documented by: CHUCK Ondansetron HCl (Zofran Odt) 4 mg PO Q6H PRN PRN Reason: Nausea able to take PO Oxycodone HCl (Oxycodone) 5 mg PO Q4H PRN PRN Reason: Pain Last Admin: 03/08/20 15:52 Dose: 5 mg Documented by: Admin: 03/08/20 11:39 Dose: 5 mg Documented by: Admin: 03/08/20 07:28 Dose: 5 mg Documented by: Admin: 03/08/20 02:51 Dose: 5 mg Documented by: Admin: 03/07/20 21:08 Dose: 5 mg Documented by: Admin: 03/07/20 16:38 Dose: 5 mg Documented by: UDAY Pantoprazole Sodium (Protonix) 40 mg PO ACBREAKFAST [facility] Admin: 03/08/20 07:28 Dose: 40 mg Documented by: Admin: 03/07/20 07:40 Dose: 40 mg Documented by: Admin: 03/06/20 07:50 Dose: 40 mg Documented by: Admin: 03/05/20 08:51 Dose: Not Given Documented by: Admin: 03/04/20 07:59 Dose: 40 mg Documented by: Admin: 03/03/20 09:10 Dose: 40 mg Documented by: JOJO Phenobarbital (Phenobarbital) 97.2 mg PO BID [facility] Last Admin: 03/08/20 08:04 Dose: 97.2 mg Documented by: Admin: 03/07/20 21:07 Dose: 97.2 mg Documented by: Admin: 03/07/20 08:58 Dose: 97.2 mg Documented by: Admin: 03/06/20 20:51 Dose: 97.2 mg Documented by: Admin: 03/06/20 08:01 Dose: 97.2 mg Documented by: Admin: 03/05/20 22:24 Dose: 97.2 mg Documented by: Admin: 03/05/20 10:02 Dose: Not Given Documented by: Admin: 03/04/20 20:02 Dose: 97.2 mg Documented by: Admin: 03/04/20 08:03 Dose: 97.2 mg Documented by: Admin: 03/03/20 21:29 Dose: 97.2 mg Documented by: Admin: 03/03/20 09:10 Dose: 97.2 mg Documented by: Admin: 03/02/20 20:10 Dose: 97.2 mg Documented by: CHUCK Phenytoin Sodium (Phenytoin) 200 mg PO BID [facility] Last Admin: 03/08/20 08:05 Dose: 200 mg Documented by: Admin: 03/07/20 21:07 Dose: 200 mg Documented by: Admin: 03/07/20 08:56 Dose: 200 mg Documented by: Admin: 03/06/20 20:47 Dose: 200 mg Documented by: Admin: 03/06/20 08:01 Dose: 200 mg Documented by: Admin: 03/05/20 22:19 Dose: 200 mg Documented by: Admin: 03/05/20 10:02 Dose: Not Given Documented by: Admin: 03/04/20 20:01 Dose: 200 mg Documented by: Admin: 03/04/20 08:02 Dose: 200 mg Documented by: Admin: 03/03/20 21:30 Dose: 200 mg Documented by: Admin: 03/03/20 09:10 Dose: 200 mg Documented by: Admin: 03/02/20 20:10 Dose: 200 mg Documented by: CHUCK Senna/Docusate Sodium (Senna Plus) 1 tab PO DAILY [facility] Admin: 03/08/20 08:06 Dose: 1 tab Documented by: Admin: 03/07/20 08:56 Dose: 1 tab Documented by: Admin: 03/06/20 08:02 Dose: 1 tab Documented by: Admin: 03/05/20 10:02 Dose: Not Given Documented by: Admin: 03/04/20 08:00 Dose: 1 tab Documented by: Admin: 03/03/20 09:11 Dose: 1 tab Documented by: JOJO Sodium Chloride (Saline Flush) 10 ml FLUSH ASDIRECTED PRN PRN Reason: Keep Vein Open Last Admin: 03/02/20 13:19 Dose: 10 ml Documented by: ELIZABETH Tamsulosin HCl (Flomax) 0.4 mg PO DAILY [facility] Last Admin: 03/08/20 08:05 Dose: 0.4 mg Documented by: Admin: 03/07/20 08:56 Dose: 0.4 mg Documented by: Admin: 03/06/20 08:01 Dose: 0.4 mg Documented by: Admin: 03/05/20 10:02 Dose: Not Given Documented by: Admin: 03/04/20 08:00 Dose: 0.4 mg Documented by: Admin: 03/03/20 09:11 Dose: 0.4 mg Documented by: JOJO Thiamine HCl (Vitamin B-1) 100 mg PO DAILY [facility] Last Admin: 03/08/20 08:05 Dose: 100 mg Documented by: Admin: 03/07/20 08:56 Dose: 100 mg Documented by: Admin: 03/06/20 08:01 Dose: 100 mg Documented by: Admin: 03/05/20 10:02 Dose: Not Given Documented by: Admin: 03/04/20 08:00 Dose: 100 mg Documented by: Admin: 03/03/20 09:10 Dose: 100 mg Documented by: JOJO - Assessment Assessment (Free Text/Narrative):: Stable from a surgical standpoint. Confused and agitated overnight consistent with alcohol withdrawal. - Plan Plan (Free Text/Narrative):: Continue supportive care. Up with PT when able.
--- NOTE | 2020-03-08 18:48 | PCM.SURGPN ---
- General Info Date of Service: 03/07/20 Date of Surgery/Procedure: 03/03/20 POD#: 4 Post-Op Diagnosis: pertrochanteric fracture left hip Functional Status: Reports: Tolerating Diet - Review of Systems Musculoskeletal: Reports: Leg Pain Psychiatric: Reports: Confusion (Improved significantly) - Patient Data Vitals - Most Recent: Last Vital Signs Temp 36.4 C 03/08/20 13:00 Pulse 93 03/08/20 13:00 Resp 16 03/08/20 13:00 BP 93/52 L 03/08/20 13:00 Pulse Ox 92 L 03/08/20 13:00 Weight - Most Recent: 58.96 kg I&O - Last 24 Hours: Intake & Output 03/08/20 03/08/20 03/08/20 06:59 14:59 22:59 Intake Total 200 640 Output Total 200 Balance 200 -200 640 Med Orders - Current: Current Medications Acetaminophen (Tylenol) 650 mg PO Q4H PRN PRN Reason: Pain (Mild 1-3)/fever Last Admin: 03/08/20 14:40 Dose: 650 mg Documented by: Albuterol (Proventil Neb Soln) 2.5 mg NEB Q4H PRN PRN Reason: Shortness Of Breath/wheezing Citalopram Hydrobromide (Celexa) 20 mg PO DAILY [facility] Last Admin: 03/08/20 08:05 Dose: 20 mg Documented by: Clonidine HCl (Catapres) 0.1 mg PO BID [facility] Last Admin: 03/08/20 08:05 Dose: 0.1 mg Documented by: Enoxaparin Sodium (Lovenox) 30 mg SUBCUT Q24H [facility] Last Admin: 03/08/20 18:17 Dose: 30 mg Documented by: Folic Acid (Folic Acid) 1 mg PO DAILY [facility] Last Admin: 03/08/20 08:05 Dose: 1 mg Documented by: Losartan Potassium (Cozaar) 50 mg PO DAILY [facility] Last Admin: 03/08/20 08:06 Dose: 50 mg Documented by: Magnesium Hydroxide (Milk Of Magnesia) 30 ml PO Q12H PRN PRN Reason: Constipation Last Admin: 03/07/20 09:14 Dose: 30 ml Documented by: Melatonin (Melatonin) 9 mg PO BEDTIME [facility] Last Admin: 03/07/20 21:07 Dose: 9 mg Documented by: Ondansetron HCl (Zofran Odt) 4 mg PO Q6H PRN PRN Reason: Nausea able to take PO Oxycodone HCl (Oxycodone) 5 mg PO Q4H PRN PRN Reason: Pain Last Admin: 03/08/20 15:52 Dose: 5 mg Documented by: Pantoprazole Sodium (Protonix) 40 mg PO ACBREAKFAST [facility] Last Admin: 03/08/20 07:28 Dose: 40 mg Documented by: Phenobarbital (Phenobarbital) 97.2 mg PO BID [facility] Last Admin: 03/08/20 08:04 Dose: 97.2 mg Documented by: Phenytoin Sodium (Phenytoin) 200 mg PO BID [facility] Last Admin: 03/08/20 08:05 Dose: 200 mg Documented by: Senna/Docusate Sodium (Senna Plus) 1 tab PO DAILY [facility] Last Admin: 03/08/20 08:06 Dose: 1 tab Documented by: Sodium Chloride (Saline Flush) 10 ml FLUSH ASDIRECTED PRN PRN Reason: Keep Vein Open Last Admin: 03/02/20 13:19 Dose: 10 ml Documented by: Tamsulosin HCl (Flomax) 0.4 mg PO DAILY [facility] Last Admin: 03/08/20 08:05 Dose: 0.4 mg Documented by: Thiamine HCl (Vitamin B-1) 100 mg PO DAILY [facility] Last Admin: 03/08/20 08:05 Dose: 100 mg Documented by: Discontinued Medications Fentanyl (Sublimaze) Confirm Administered Dose 100 mcg .ROUTE .[facility]-MED ONE Stop: 03/03/20 14:46 Gabapentin (Neurontin) 400 mg PO TID [facility] Last Admin: 03/05/20 10:03 Dose: Not Given Documented by: Haloperidol Lactate (Haldol) 2.5 mg IVPUSH Q4H PRN PRN Reason: Agitation/Hallucinations Last Admin: 03/06/20 11:08 Dose: 2.5 mg Documented by: Hydromorphone HCl (Dilaudid) 1 mg IVPUSH Q2H PRN PRN Reason: Pain (severe 7-10) Last Admin: 03/05/20 04:04 Dose: 1 mg Documented by: Potassium Chloride/Sodium Chloride (Normal Saline With 20 Meq Kcl) 1,000 mls @ 125 mls/hr IV ASDIRECTED [facility] Last Admin: 03/04/20 04:50 Dose: 125 mls/hr Documented by: Potassium Chloride 20 meq/Lidocaine HCl 2 ml/ Sodium Chloride 112 mls @ 56 mls/hr IV ONETIME ONE Stop: 03/02/20 19:29 Last Admin: 03/02/20 18:05 Dose: 56 mls/hr Documented by: Cefazolin Sodium/Dextrose 2 gm (/ Premix) 50 mls @ 100 mls/hr IV ONETIME ONE Stop: 03/03/20 13:29 Last Admin: 03/03/20 14:35 Dose: 100 mls/hr Documented by: Lactated Ringer's (Ringers, Lactated) Confirm Administered Dose 1,000 mls @ as directed .ROUTE .STK-MED ONE Stop: 03/03/20 15:47 Cefazolin Sodium/Dextrose 1 gm (/ Premix) 50 mls @ 100 mls/hr IV Q8HR [facility] Stop: 03/04/20 06:29 Last Admin: 03/04/20 05:54 Dose: 100 mls/hr Documented by: Potassium Chloride/Sodium Chloride (Normal Saline With 20 Meq Kcl) 1,000 mls @ 50 mls/hr IV ASDIRECTED [facility] Last Admin: 03/04/20 17:50 Dose: 50 mls/hr Documented by: Potassium Chloride/Dextrose/Sod Cl (D5 1/2 Ns W/ 20 Meq/L Kcl) 1,000 mls @ 75 mls/hr IV ASDIRECTED [facility] Last Admin: 03/07/20 00:35 Dose: 75 mls/hr Documented by: Lidocaine HCl (Xylocaine 2% Jelly) 10 ml MUCMEM ONETIME ONE Stop: 03/02/20 17:49 Last Admin: 03/02/20 18:21 Dose: 10 ml Documented by: Lorazepam (Ativan) 1 mg IVPUSH ONETIME ONE Stop: 03/02/20 13:08 Last Admin: 03/02/20 13:17 Dose: 1 mg Documented by: Lorazepam (Ativan) 0.5 mg IVPUSH Q4H PRN PRN Reason: Nausea/Vomiting Last Admin: 03/03/20 13:18 Dose: 0.5 mg Documented by: Lorazepam (Ativan) 0 mg PO ASDIRECTED [facility]; Protocol Last Admin: 03/05/20 11:31 Dose: 1 mg Documented by: Lorazepam (Ativan) 0 mg IV ASDIRECTED [facility]; Protocol Last Admin: 03/06/20 17:58 Dose: 2 mg Documented by: Midazolam HCl (Versed 1 Mg/Ml) Confirm Administered Dose 2 mg .ROUTE .STK-MED ONE Stop: 03/03/20 14:46 Ondansetron HCl (Zofran) 4 mg IV Q6H PRN PRN Reason: Nausea/Vomiting Oxycodone HCl (Oxycodone) 5 - 10 mg PO Q4H PRN PRN Reason: Pain Last Admin: 03/07/20 10:11 Dose: 5 mg Documented by: Potassium Chloride (Klor-Con M20) 20 meq PO ONETIME ONE Stop: 03/02/20 17:01 Last Admin: 03/02/20 17:47 Dose: 20 meq Documented by: Propofol (Diprivan 20 Ml) Confirm Administered Dose 200 mg .ROUTE .STK-MED ONE Stop: 03/03/20 14:47 - Exam Extremities: Leg Pain, Limited Range of Motion Skin: Warm, Dry Sepsis Event Note - Evaluation Sepsis Screening Result: No Definite Risk - Focused Exam Vital Signs: Vital Signs Temp Pulse Resp BP BP Pulse Ox 03/08/20 13:00 36.4 C 93 16 93/52 L 92 L 03/08/20 08:06 148/74 H 03/08/20 08:05 148/74 H - Problem List & Annotations (1) Hip fracture SNOMED Code(s): 890854272 Code(s): S72.009A - FRACTURE OF UNSP PART OF NECK OF UNSP FEMUR, INIT Status: Acute Current Visit: Yes Qualifiers: Encounter type: initial encounter Fracture type: closed Laterality: left Qualified Code(s): S72.002A - Fracture of unspecified part of neck of left femur, initial encounter for closed fracture (2) Alcohol abuse SNOMED Code(s): 44278887 Code(s): F10.10 - ALCOHOL ABUSE, UNCOMPLICATED Status: Acute Current Visit: No (3) Alcohol intoxication SNOMED Code(s): 49686713 Code(s): F10.929 - ALCOHOL USE, UNSPECIFIED WITH INTOXICATION, UNSPECIFIED Status: Acute Current Visit: No Qualifiers: Complication of substance-induced condition: with delirium Qualified Code(s): F10.921 - Alcohol use, unspecified with intoxication delirium - Problem List Review Problem List Initiated/Reviewed/Updated: Yes - My Orders Last 24 Hours: Medication Orders Acetaminophen (Tylenol) 650 mg PO Q4H PRN PRN Reason: Pain (Mild 1-3)/fever Last Admin: 03/08/20 14:40 Dose: 650 mg Documented by: Admin: 03/08/20 08:04 Dose: 650 mg Documented by: Admin: 03/07/20 09:14 Dose: 650 mg Documented by: UDAY Albuterol (Proventil Neb Soln) 2.5 mg NEB Q4H PRN PRN Reason: Shortness Of Breath/wheezing Citalopram Hydrobromide (Celexa) 20 mg PO DAILY [facility] Last Admin: 03/08/20 08:05 Dose: 20 mg Documented by: Admin: 03/07/20 08:55 Dose: 20 mg Documented by: Admin: 03/06/20 08:02 Dose: 20 mg Documented by: Admin: 03/05/20 10:02 Dose: Not Given Documented by: Admin: 03/04/20 08:02 Dose: 20 mg Documented by: Admin: 03/03/20 09:11 Dose: 20 mg Documented by: JOJO Clonidine HCl (Catapres) 0.1 mg PO BID [facility] Last Admin: 03/08/20 08:05 Dose: 0.1 mg Documented by: Admin: 03/07/20 21:07 Dose: 0.1 mg Documented by: Admin: 03/07/20 08:54 Dose: 0.1 mg Documented by: Admin: 03/06/20 20:46 Dose: 0.1 mg Documented by: Admin: 03/04/20 10:19 Dose: Not Given Documented by: Admin: 03/03/20 21:29 Dose: 0.1 mg Documented by: Admin: 03/03/20 09:11 Dose: 0.1 mg Documented by: Admin: 03/02/20 20:10 Dose: 0.1 mg Documented by: CHUCK Enoxaparin Sodium (Lovenox) 30 mg SUBCUT Q24H [facility] Last Admin: 03/08/20 18:17 Dose: 30 mg Documented by: Admin: 03/07/20 17:59 Dose: 30 mg Documented by: Admin: 03/06/20 17:58 Dose: 30 mg Documented by: Admin: 03/05/20 17:59 Dose: 30 mg Documented by: Admin: 03/04/20 17:49 Dose: 30 mg Documented by: Admin: 03/03/20 17:55 Dose: 30 mg Documented by: BRENT Folic Acid (Folic Acid) 1 mg PO DAILY [facility] Last Admin: 03/08/20 08:05 Dose: 1 mg Documented by: Admin: 03/07/20 08:55 Dose: 1 mg Documented by: Admin: 03/06/20 08:01 Dose: 1 mg Documented by: Admin: 03/05/20 10:02 Dose: Not Given Documented by: Admin: 03/04/20 08:00 Dose: 1 mg Documented by: Admin: 03/03/20 09:11 Dose: 1 mg Documented by: JOJO Losartan Potassium (Cozaar) 50 mg PO DAILY [facility] Last Admin: 03/08/20 08:06 Dose: 50 mg Documented by: Admin: 03/07/20 08:56 Dose: 50 mg Documented by: Admin: 03/04/20 10:19 Dose: Not Given Documented by: Admin: 03/03/20 09:11 Dose: 50 mg Documented by: JOJO Magnesium Hydroxide (Milk Of Magnesia) 30 ml PO Q12H PRN PRN Reason: Constipation Last Admin: 03/07/20 09:14 Dose: 30 ml Documented by: UDAY Melatonin (Melatonin) 9 mg PO BEDTIME [facility] Last Admin: 03/07/20 21:07 Dose: 9 mg Documented by: Admin: 03/06/20 20:47 Dose: 9 mg Documented by: Admin: 03/05/20 22:19 Dose: 9 mg Documented by: Admin: 03/04/20 20:01 Dose: 9 mg Documented by: Admin: 03/03/20 21:29 Dose: 9 mg Documented by: Admin: 03/02/20 20:10 Dose: 9 mg Documented by: CHUCK Ondansetron HCl (Zofran Odt) 4 mg PO Q6H PRN PRN Reason: Nausea able to take PO Oxycodone HCl (Oxycodone) 5 mg PO Q4H PRN PRN Reason: Pain Last Admin: 03/08/20 15:52 Dose: 5 mg Documented by: Admin: 03/08/20 11:39 Dose: 5 mg Documented by: Admin: 03/08/20 07:28 Dose: 5 mg Documented by: Admin: 03/08/20 02:51 Dose: 5 mg Documented by: Admin: 03/07/20 21:08 Dose: 5 mg Documented by: Admin: 03/07/20 16:38 Dose: 5 mg Documented by: UADY Pantoprazole Sodium (Protonix) 40 mg PO ACBREAKFAST [facility] Admin: 03/08/20 07:28 Dose: 40 mg Documented by: Admin: 03/07/20 07:40 Dose: 40 mg Documented by: Admin: 03/06/20 07:50 Dose: 40 mg Documented by: Admin: 03/05/20 08:51 Dose: Not Given Documented by: Admin: 03/04/20 07:59 Dose: 40 mg Documented by: Admin: 03/03/20 09:10 Dose: 40 mg Documented by: JOJO Phenobarbital (Phenobarbital) 97.2 mg PO BID [facility] Admin: 03/08/20 08:04 Dose: 97.2 mg Documented by: Admin: 03/07/20 21:07 Dose: 97.2 mg Documented by: Admin: 03/07/20 08:58 Dose: 97.2 mg Documented by: Admin: 03/06/20 20:51 Dose: 97.2 mg Documented by: Admin: 03/06/20 08:01 Dose: 97.2 mg Documented by: Admin: 03/05/20 22:24 Dose: 97.2 mg Documented by: Admin: 03/05/20 10:02 Dose: Not Given Documented by: Admin: 03/04/20 20:02 Dose: 97.2 mg Documented by: Admin: 03/04/20 08:03 Dose: 97.2 mg Documented by: Admin: 03/03/20 21:29 Dose: 97.2 mg Documented by: Admin: 03/03/20 09:10 Dose: 97.2 mg Documented by: Admin: 03/02/20 20:10 Dose: 97.2 mg Documented by: CHUCK Phenytoin Sodium (Phenytoin) 200 mg PO BID [facility] Last Admin: 03/08/20 08:05 Dose: 200 mg Documented by: Admin: 03/07/20 21:07 Dose: 200 mg Documented by: Admin: 03/07/20 08:56 Dose: 200 mg Documented by: Admin: 03/06/20 20:47 Dose: 200 mg Documented by: Admin: 03/06/20 08:01 Dose: 200 mg Documented by: Admin: 03/05/20 22:19 Dose: 200 mg Documented by: Admin: 03/05/20 10:02 Dose: Not Given Documented by: Admin: 03/04/20 20:01 Dose: 200 mg Documented by: Admin: 03/04/20 08:02 Dose: 200 mg Documented by: Admin: 03/03/20 21:30 Dose: 200 mg Documented by: Admin: 03/03/20 09:10 Dose: 200 mg Documented by: Admin: 03/02/20 20:10 Dose: 200 mg Documented by: CHUCK Senna/Docusate Sodium (Senna Plus) 1 tab PO DAILY [facility] Last Admin: 03/08/20 08:06 Dose: 1 tab Documented by: Admin: 03/07/20 08:56 Dose: 1 tab Documented by: Admin: 03/06/20 08:02 Dose: 1 tab Documented by: Admin: 03/05/20 10:02 Dose: Not Given Documented by: Admin: 03/04/20 08:00 Dose: 1 tab Documented by: Admin: 03/03/20 09:11 Dose: 1 tab Documented by: JOJO Sodium Chloride (Saline Flush) 10 ml FLUSH ASDIRECTED PRN PRN Reason: Keep Vein Open Last Admin: 03/02/20 13:19 Dose: 10 ml Documented by: ELIZABETH Tamsulosin HCl (Flomax) 0.4 mg PO DAILY [facility] Last Admin: 03/08/20 08:05 Dose: 0.4 mg Documented by: Admin: 03/07/20 08:56 Dose: 0.4 mg Documented by: Admin: 03/06/20 08:01 Dose: 0.4 mg Documented by: Admin: 03/05/20 10:02 Dose: Not Given Documented by: Admin: 03/04/20 08:00 Dose: 0.4 mg Documented by: Admin: 03/03/20 09:11 Dose: 0.4 mg Documented by: JOJO Thiamine HCl (Vitamin B-1) 100 mg PO DAILY [facility] Last Admin: 03/08/20 08:05 Dose: 100 mg Documented by: Admin: 03/07/20 08:56 Dose: 100 mg Documented by: Admin: 03/06/20 08:01 Dose: 100 mg Documented by: Admin: 03/05/20 10:02 Dose: Not Given Documented by: Admin: 03/04/20 08:00 Dose: 100 mg Documented by: Admin: 03/03/20 09:10 Dose: 100 mg Documented by: JOJO - Assessment Assessment (Free Text/Narrative):: S/P IM rodding left hip, alcohol withdrawal improving. - Plan Plan (Free Text/Narrative):: Progress activity as tolerated.
[2020-03-08] MEDS: Melatonin 3 MG Tab PO SCH (20:20)
[2020-03-09] MEDS: oxyCODONE 5 MG Tab PO PRN ×6 (00:39→21:22)
[2020-03-09] MEDS: Acetaminophen 325 MG Tab PO PRN ×6 (00:39→21:23)
[2020-03-09] MEDS: Losartan 50 MG Tab PO SCH (08:00)
[2020-03-09] MEDS: Phenytoin 100 MG Cap.ER PO SCH ×2 (08:00→20:22)
[2020-03-09] MEDS: Citalopram 20 MG Tab PO SCH (08:02)
[2020-03-09] MEDS: Thiamine 100 MG Tab PO SCH (08:02)
[2020-03-09] MEDS: cloNIDine 0.1 MG Tab PO SCH ×2 (08:02→20:21)
[2020-03-09] MEDS: Folic Acid 1 MG Tab PO SCH (08:02)
[2020-03-09] MEDS: Tamsulosin 0.4 MG Cap.ER PO SCH (08:02)
[2020-03-09] MEDS: Pantoprazole 40 MG Tab.CR PO SCH (08:02)
[2020-03-09] MEDS: PHENobarbital 32.4 MG Tab PO SCH ×2 (08:06→20:21)
--- NOTE | 2020-03-09 08:55 | PCM.PN ---
- General Info Date of Service: 03/09/20 Subjective Update: Mr. Degroot has been stable over the last 24 hours. Vital signs have been good and he has remained afebrile. Functional Status: Reports: Tolerating Diet, Ambulating, Urinating - Review of Systems General: Reports: No Symptoms Pulmonary: Reports: No Symptoms Cardiovascular: Reports: No Symptoms Gastrointestinal: Reports: No Symptoms Musculoskeletal: Reports: Joint Pain (Left hip) - Patient Data Vitals - Most Recent: Last Vital Signs Temp 98.1 F 03/08/20 20:00 Pulse 89 03/08/20 20:00 Resp 18 03/08/20 20:00 BP 144/73 H 03/09/20 08:02 Pulse Ox 99 03/08/20 20:00 Weight - Most Recent: 129 lb 15.753 oz I&O - Last 24 Hours: Intake & Output 03/08/20 03/09/20 03/09/20 22:59 06:59 14:59 Intake Total 640 Output Total 200 Balance 440 Med Orders - Current: Current Medications Acetaminophen (Tylenol) 650 mg PO Q4H PRN PRN Reason: Pain (Mild 1-3)/fever Last Admin: 03/09/20 04:42 Dose: 650 mg Documented by: Albuterol (Proventil Neb Soln) 2.5 mg NEB Q4H PRN PRN Reason: Shortness Of Breath/wheezing Citalopram Hydrobromide (Celexa) 20 mg PO DAILY [facility] Last Admin: 03/09/20 08:02 Dose: 20 mg Documented by: Clonidine HCl (Catapres) 0.1 mg PO BID [facility] Last Admin: 03/09/20 08:02 Dose: 0.1 mg Documented by: Enoxaparin Sodium (Lovenox) 30 mg SUBCUT Q24H [facility] Last Admin: 03/08/20 18:17 Dose: 30 mg Documented by: Folic Acid (Folic Acid) 1 mg PO DAILY [facility] Last Admin: 03/09/20 08:02 Dose: 1 mg Documented by: Losartan Potassium (Cozaar) 50 mg PO DAILY [facility] Last Admin: 03/09/20 08:00 Dose: 50 mg Documented by: Magnesium Hydroxide (Milk Of Magnesia) 30 ml PO Q12H PRN PRN Reason: Constipation Last Admin: 03/07/20 09:14 Dose: 30 ml Documented by: Melatonin (Melatonin) 9 mg PO BEDTIME [facility] Last Admin: 03/08/20 20:20 Dose: 9 mg Documented by: Non-Formulary Medication (Trazodone Hcl [Trazodone Hcl]) 150 mg PO BEDTIME [facility] Ondansetron HCl (Zofran Odt) 4 mg PO Q6H PRN PRN Reason: Nausea able to take PO Oxycodone HCl (Oxycodone) 5 mg PO Q4H PRN PRN Reason: Pain Last Admin: 03/09/20 04:42 Dose: 5 mg Documented by: Pantoprazole Sodium (Protonix) 40 mg PO ACBREAKFAST [facility] Last Admin: 03/09/20 08:02 Dose: 40 mg Documented by: Phenobarbital (Phenobarbital) 97.2 mg PO BID [facility] Last Admin: 03/09/20 08:06 Dose: 97.2 mg Documented by: Phenytoin Sodium (Phenytoin) 200 mg PO BID [facility] Last Admin: 03/09/20 08:00 Dose: 200 mg Documented by: Senna/Docusate Sodium (Senna Plus) 1 tab PO DAILY [facility] Last Admin: 03/09/20 08:02 Dose: 1 tab Documented by: Sodium Chloride (Saline Flush) 10 ml FLUSH ASDIRECTED PRN PRN Reason: Keep Vein Open Last Admin: 03/02/20 13:19 Dose: 10 ml Documented by: Tamsulosin HCl (Flomax) 0.4 mg PO DAILY [facility] Last Admin: 03/09/20 08:02 Dose: 0.4 mg Documented by: Thiamine HCl (Vitamin B-1) 100 mg PO DAILY [facility] Last Admin: 03/09/20 08:02 Dose: 100 mg Documented by: Discontinued Medications Fentanyl (Sublimaze) Confirm Administered Dose 100 mcg .ROUTE .STK-MED ONE Stop: 03/03/20 14:46 Gabapentin (Neurontin) 400 mg PO TID [facility] Last Admin: 03/05/20 10:03 Dose: Not Given Documented by: Haloperidol Lactate (Haldol) 2.5 mg IVPUSH Q4H PRN PRN Reason: Agitation/Hallucinations Last Admin: 03/06/20 11:08 Dose: 2.5 mg Documented by: Hydromorphone HCl (Dilaudid) 1 mg IVPUSH Q2H PRN PRN Reason: Pain (severe 7-10) Last Admin: 03/05/20 04:04 Dose: 1 mg Documented by: Potassium Chloride/Sodium Chloride (Normal Saline With 20 Meq Kcl) 1,000 mls [facility] Admin: 03/04/20 04:50 Dose: 125 mls/hr Documented by: Potassium Chloride 20 meq/Lidocaine HCl 2 ml/ Sodium Chloride 112 mls @ 56 mls/hr IV ONETIME ONE Stop: 03/02/20 19:29 Last Admin: 03/02/20 18:05 Dose: 56 mls/hr Documented by: Cefazolin Sodium/Dextrose 2 gm (/ Premix) 50 mls @ 100 mls/hr IV ONETIME ONE Stop: 03/03/20 13:29 Last Admin: 03/03/20 14:35 Dose: 100 mls/hr Documented by: Lactated Ringer's (Ringers, Lactated) Confirm Administered Dose 1,000 mls @ as directed .ROUTE .STK-MED ONE Stop: 03/03/20 15:47 Cefazolin Sodium/Dextrose 1 gm (/ Premix) 50 mls @ 100 mls/hr IV Q8HR [facility] Stop: 03/04/20 06:29 Last Admin: 03/04/20 05:54 Dose: 100 mls/hr Documented by: Potassium Chloride/Sodium Chloride (Normal Saline With 20 Meq Kcl) 1,000 mls @ [facility] Last Admin: 03/04/20 17:50 Dose: 50 mls/hr Documented by: Potassium Chloride/Dextrose/Sod Cl (D5 1/2 Ns W/ 20 Meq/L Kcl) 1,000 mls @ 75 [facility]ls[facility] Last Admin: 03/07/20 00:35 Dose: 75 mls/hr Documented by: Lidocaine HCl (Xylocaine 2% Jelly) 10 ml MUCMEM ONETIME ONE Stop: 03/02/20 17:49 Last Admin: 03/02/20 18:21 Dose: 10 ml Documented by: Lorazepam (Ativan) 1 mg IVPUSH ONETIME ONE Stop: 03/02/20 13:08 Last Admin: 03/02/20 13:17 Dose: 1 mg Documented by: Lorazepam (Ativan) 0.5 mg IVPUSH Q4H PRN PRN Reason: Nausea/Vomiting Last Admin: 03/03/20 13:18 Dose: 0.5 mg Documented by: Lorazepam (Ativan) 0 mg PO ASDIRECTED [facility]; Protocol Last Admin: 03/05/20 11:31 Dose: 1 mg Documented by: Lorazepam (Ativan) 0 mg IV ASDIRECTED [facility]; Protocol Last Admin: 03/06/20 17:58 Dose: 2 mg Documented by: Midazolam HCl (Versed 1 Mg/Ml) Confirm Administered Dose 2 mg .ROUTE .STK-MED ONE Stop: 03/03/20 14:46 Ondansetron HCl (Zofran) 4 mg IV Q6H PRN PRN Reason: Nausea/Vomiting Oxycodone HCl (Oxycodone) 5 - 10 mg PO Q4H PRN PRN Reason: Pain Last Admin: 03/07/20 10:11 Dose: 5 mg Documented by: Potassium Chloride (Klor-Con M20) 20 meq PO ONETIME ONE Stop: 03/02/20 17:01 Last Admin: 03/02/20 17:47 Dose: 20 meq Documented by: Propofol (Diprivan 20 Ml) Confirm Administered Dose 200 mg .ROUTE .STK-MED ONE Stop: 03/03/20 14:47 - Exam Quality Assessment: DVT Prophylaxis General: Alert, Oriented, Cooperative, Mild Distress Lungs: Clear to Auscultation, Normal Respiratory Effort, Decreased Breath Sounds Cardiovascular: Regular Rate, Regular Rhythm, No Murmurs GI/Abdominal Exam: Soft, Non-Tender, No Organomegaly, No Distention Extremities: Non-Tender, No Pedal Edema, Other (Left hip pain) Sepsis Event Note - Evaluation Sepsis Screening Result: No Definite Risk - Focused Exam Vital Signs: Vital Signs BP 03/09/20 08:02 144/73 H 03/09/20 08:00 144/73 H - Problem List Review Problem List Initiated/Reviewed/Updated: Yes - My Orders Last 24 Hours: My Active Orders 03/09/20 21:00 traZODone HCl [Trazodone HCl] 150 mg PO BEDTIME - Plan Plan:: ASSESSMENT AND PLAN - Nondisplaced intertrochanteric fracture of the left hip-secondary to fall with trauma at home. Status post IM nailing on 03/03. He can be weightbearing as tolerated. -Pain control -Weightbearing as tolerated -Surgical follow-up per Dr Romeo Scott -Physical therapy when stable postoperatively -Anticipate 1 month of anticoagulation postoperatively with his history of DVT Alcohol abuse with withdrawal and delirium-resolved -Melatonin at bedtime Hypokalemia-improved with supplementation. Seizure disorder-no issues so far. -Continue home medications Maintenance issues - - DVT prophylaxis -enoxaparin x1 month - GI prophylaxis -continue home PPI - Nutrition -regular diet when he is more alert and interactive - Chavarria catheter -will be removed today as the patient is frequently pulling at this and is at high risk for injury. Urine output has been adequate Disposition -[facility]icip[facility] to jail tomorrow Primary care physician - Dr Rito Castillo
--- NOTE | 2020-03-09 13:34 | PCM.DCSUM1 ---
Discharge Summary - Hospital Course Brief History: Mr. Degroot is a 69-year-old gentleman who was admitted through the emergency department with left hip pain secondary to a hip fracture. - Discharge Data Discharge Date: 03/10/20 Discharge Disposition: DC/Tfer to SNF 03 Condition: Fair - Referral to Home Health Primary Care Physician: PCP None - Discharge Diagnosis/Problem(s) (1) Fall in elderly patient SNOMED Code(s): 716689891 ICD Code: R29.6 - REPEATED FALLS Status: Acute Current Visit: Yes (2) Multiple contusions SNOMED Code(s): 132572690 ICD Code: T07.XXXA - UNSPECIFIED MULTIPLE INJURIES, INITIAL ENCOUNTER Status: Acute Current Visit: No (3) Chronic alcohol abuse SNOMED Code(s): 611034575 ICD Code: F10.10 - ALCOHOL ABUSE, UNCOMPLICATED Status: Acute Current Visit: No (4) Alcohol withdrawal syndrome SNOMED Code(s): 541068145 ICD Code: F10.239 - ALCOHOL DEPENDENCE WITH WITHDRAWAL, UNSPECIFIED Status: Acute Current Visit: Yes (5) Intertrochanteric fracture of left hip SNOMED Code(s): 874565357, 64505922686793445 ICD Code: S72.142A - DISPLACED INTERTROCHANTERIC FRACTURE OF LEFT FEMUR, INIT Status: Acute Current Visit: Yes Qualifiers: Encounter type: initial encounter Fracture type: closed Fracture alignment: nondisplaced Qualified Code(s): S72.145A - Nondisplaced intertrochanteric fracture of left femur, initial encounter for closed fracture - Patient Summary/Data Consults: Consultations 03/02/20 16:23 Consult to Physician [CONS] Routine Consulting Provider: Romeo Scott Call Completed to Consulting Physician: Yes Reason for Consult: left hip fx Person Notified: [employer] Date Notified: 03/02/20 Special Instructions: planning surgery in the morning 03/03/20 17:02 Consult to Physical Therapy [PT Evaluation and Treatment] [CONS] Routine Please Evaluate and Treat. PT Reason for Consult: Post op Ortho Surgery Special Instructions: WBAT on left leg This query below is only for informational purposes and is not editable. Admission Diagnosis/Problem: Fracture of left hip 03/03/20 17:07 Consult to Case Management/Electro Mechanic [CONS] Routine Comment: Physician Instructions: Service(s) to be Consulted: Case Management Reason for Consult: Plan for Discharge Hospital Course: Mr. Degroot presented to the emergency room after a professor of social work stop by to check on him and found him lying on the floor with vomit all over. 911 was called and an ambulance was summoned. He is reported sharp and severe left hip pain that radiates into his lower back. The pain is worse anytime he tries to move it. He did drink some schnapps at home to help kill the pain but does not think it helped very much. He is not able to tell me when he fell. He is not sure how long he has been laying on the floor. He is also complaining of lower back and left foot pain which he says are chronic but are hurting more after laying on the floor. He has no idea when the last time he was able to walk was. He does complain of pain in the top left part of his head as well as his nose and has a large bruise on the right side of his face below the eye. Reported that he started drinking this morning to help with his pain but has not been drinking every day. Work-up in the emergency room revealed evidence for a left hip fracture as well as a fracture of the nasal bone and nasal septum. He is dehydrated and intoxicated. He was admitted for management of the intoxication with the plan for surgical intervention of the hip fracture. On admission he was given IV fluids for hydration as well as pain medication as needed. The day after admission he was seen and evaluated by Dr. Scott and taken to the operating room for surgical repair of the hip fracture with nailing. Surgery went well but his postoperative course was complicated by relatively severe alcohol withdrawal. He gradually improved as far as his alcohol withdrawal which had resolved by the time of discharge. He requires halfway placement because of his ongoing pain, difficulty with transfers and ambulation. Activity is weightbearing as tolerated on the left leg and he will be on a low cholesterol low-sodium diet. He should receive daily physical and occupational therapy while at the halfway. He will require a follow-up appointment and an x-ray of the left hip with orthopedic surgery in 2 to 4 weeks. - Patient Instructions Diet: Heart Healthy Diet Activity: As Tolerated Other/Special Instructions: Please schedule x-ray of the left hip and follow-up appointment with orthopedic surgery in 2 to 4 weeks. Physical therapy and occupational therapy while at the halfway. - Discharge Plan *PRESCRIPTION DRUG MONITORING PROGRAM REVIEWED*: Not Applicable *COPY OF PRESCRIPTION DRUG MONITORING REPORT IN PATIENT MONSE: Not Applicable Prescriptions/Med Rec: Enoxaparin [Lovenox] 30 mg SUBCUT Q24H #21 syringe oxyCODONE 5 mg PO Q4H PRN #20 tablet PRN Reason: Pain Acetaminophen [Tylenol] 650 mg PO Q4H PRN #100 tablet PRN Reason: Pain (Mild 1-3)/fever Home Medications: Home Meds Albuterol Sulfate [Albuterol Sulfate Hfa] 2 puff IH Q4H #1 hfa.aer.ad 12/01/19 [Rx] Docusate Sodium [Colace] 100 mg PO DAILY #30 cap 12/01/19 [Rx] Folic Acid 1 mg PO DAILY #30 tablet 12/01/19 [Rx] Melatonin 5 mg PO BEDTIME #30 capsule 12/01/19 [Rx] Multivitamin with Minerals [Multiple Vitamin] 1 tab PO DAILY #30 tablet 12/01/19 [Rx] PHENobarbitaL [Phenobarbital] 97.2 mg PO BID #60 tablet 12/01/19 [Rx] Tamsulosin HCl 0.4 mg PO DAILY #30 capsule 12/01/19 [Rx] Thiamine HCl [Vitamin B-1] 100 mg PO DAILY #30 tablet 12/01/19 [Rx] cloNIDine HCL [Clonidine HCl] 0.1 mg PO BID #60 tablet 12/01/19 [Rx] traZODone HCl [Trazodone HCl] 150 mg PO BEDTIME #30 tablet 12/01/19 [Rx] Phenytoin 200 mg PO BID 12/21/19 [History] Losartan [Cozaar] 50 mg PO DAILY 02/13/20 [History] Citalopram [Citalopram HBr] 20 mg PO DAILY 02/22/20 [History] Pantoprazole Sodium [Protonix] 1 tab PO DAILY 02/22/20 [History] Acetaminophen [Tylenol] 650 mg PO Q4H PRN #100 tablet 03/09/20 [Rx] Enoxaparin [Lovenox] 30 mg SUBCUT Q24H #21 syringe 03/09/20 [Rx] oxyCODONE 5 mg PO Q4H PRN #20 tablet 03/09/20 [Rx] Referrals: Jamel Castillo MD [Physician] - - Discharge Summary/Plan Comment DC Time >30 min.: No - Patient Data Vitals - Most Recent: Last Vital Signs Temp 97.4 F 03/09/20 12:00 Pulse 81 03/09/20 12:00 Resp 16 03/09/20 12:00 BP 141/89 H 03/09/20 12:00 Pulse Ox 97 03/09/20 12:00 Weight - Most Recent: 129 lb 15.753 oz I&O - Last 24 hours: Intake & Output 03/08/20 03/09/20 03/09/20 22:59 06:59 14:59 Intake Total 640 600 Output Total 200 500 Balance 440 100 Med Orders - Current: Current Medications Acetaminophen (Tylenol) 650 mg PO Q4H PRN PRN Reason: Pain (Mild 1-3)/fever Last Admin: 03/09/20 13:06 Dose: 650 mg Documented by: Albuterol (Proventil Neb Soln) 2.5 mg NEB Q4H PRN PRN Reason: Shortness Of Breath/wheezing Citalopram Hydrobromide (Celexa) 20 mg PO DAILY [facility] Last Admin: 03/09/20 08:02 Dose: 20 mg Documented by: Clonidine HCl (Catapres) 0.1 mg PO BID [facility] Last Admin: 03/09/20 08:02 Dose: 0.1 mg Documented by: Enoxaparin Sodium (Lovenox) 30 mg SUBCUT Q24H [facility] Last Admin: 03/08/20 18:17 Dose: 30 mg Documented by: Folic Acid (Folic Acid) 1 mg PO DAILY [facility] Last Admin: 03/09/20 08:02 Dose: 1 mg Documented by: Losartan Potassium (Cozaar) 50 mg PO DAILY [facility] Last Admin: 03/09/20 08:00 Dose: 50 mg Documented by: Magnesium Hydroxide (Milk Of Magnesia) 30 ml PO Q12H PRN PRN Reason: Constipation Last Admin: 03/07/20 09:14 Dose: 30 ml Documented by: Melatonin (Melatonin) 9 mg PO BEDTIME [facility] Last Admin: 03/08/20 20:20 Dose: 9 mg Documented by: Ondansetron HCl (Zofran Odt) 4 mg PO Q6H PRN PRN Reason: Nausea able to take PO Oxycodone HCl (Oxycodone) 5 mg PO Q4H PRN PRN Reason: Pain Last Admin: 03/09/20 13:05 Dose: 5 mg Documented by: Pantoprazole Sodium (Protonix) 40 mg PO ACBREAKFAST [facility] Last Admin: 03/09/20 08:02 Dose: 40 mg Documented by: Phenobarbital (Phenobarbital) 97.2 mg PO BID [facility] Last Admin: 03/09/20 08:06 Dose: 97.2 mg Documented by: Phenytoin Sodium (Phenytoin) 200 mg PO BID [facility] Last Admin: 03/09/20 08:00 Dose: 200 mg Documented by: Senna/Docusate Sodium (Senna Plus) 1 tab PO DAILY [facility] Last Admin: 03/09/20 08:02 Dose: 1 tab Documented by: Sodium Chloride (Saline Flush) 10 ml FLUSH ASDIRECTED PRN PRN Reason: Keep Vein Open Last Admin: 03/02/20 13:19 Dose: 10 ml Documented by: Tamsulosin HCl (Flomax) 0.4 mg PO DAILY [facility] Last Admin: 03/09/20 08:02 Dose: 0.4 mg Documented by: Thiamine HCl (Vitamin B-1) 100 mg PO DAILY [facility] Last Admin: 03/09/20 08:02 Dose: 100 mg Documented by: Trazodone HCl (Trazodone) 150 mg PO BEDTIME [facility] Discontinued Medications Fentanyl (Sublimaze) Confirm Administered Dose 100 mcg .ROUTE .K-MED ONE Stop: 03/03/20 14:46 Gabapentin (Neurontin) 400 mg PO TID [facility] Last Admin: 03/05/20 10:03 Dose: Not Given Documented by: Haloperidol Lactate (Haldol) 2.5 mg IVPUSH Q4H PRN PRN Reason: Agitation/Hallucinations Last Admin: 03/06/20 11:08 Dose: 2.5 mg Documented by: Hydromorphone HCl (Dilaudid) 1 mg IVPUSH Q2H PRN PRN Reason: Pain (severe 7-10) Last Admin: 03/05/20 04:04 Dose: 1 mg Documented by: Potassium Chloride/Sodium Chloride (Normal Saline With 20 Meq Kcl) 1,000 mls @ 125 mls/hr IV ASDIRECTED [facility] Last Admin: 03/04/20 04:50 Dose: 125 mls/hr Documented by: Potassium Chloride 20 meq/Lidocaine HCl 2 ml/ Sodium Chloride 112 mls @ 56 mls/hr IV ONETIME ONE Stop: 03/02/20 19:29 Last Admin: 03/02/20 18:05 Dose: 56 mls/hr Documented by: Cefazolin Sodium/Dextrose 2 gm (/ Premix) 50 mls @ 100 mls/hr IV ONETIME ONE Stop: 03/03/20 13:29 Last Admin: 03/03/20 14:35 Dose: 100 mls/hr Documented by: Lactated Ringer's (Ringers, Lactated) Confirm Administered Dose 1,000 mls @ as directed .ROUTE .STK-MED ONE Stop: 03/03/20 15:47 Cefazolin Sodium/Dextrose 1 gm (/ Premix) 50 mls @ 100 mls/hr IV Q8HR BRITTANY Stop: 03/04/20 06:29 Last Admin: 03/04/20 05:54 Dose: 100 mls/hr Documented by: Potassium Chloride/Sodium Chloride (Normal Saline With 20 Meq Kcl) 1,000 mls @ 50 mls/hr IV ASDIRECTED BRITTANY Last Admin: 03/04/20 17:50 Dose: 50 mls/hr Documented by: Potassium Chloride/Dextrose/Sod Cl (D5 1/2 Ns W/ 20 Meq/L Kcl) 1,000 mls @ 75 mls/hr IV ASDIRECTED BRITTANY Last Admin: 03/07/20 00:35 Dose: 75 mls/hr Documented by: Lidocaine HCl (Xylocaine 2% Jelly) 10 ml MUCMEM ONETIME ONE Stop: 03/02/20 17:49 Last Admin: 03/02/20 18:21 Dose: 10 ml Documented by: Lorazepam (Ativan) 1 mg IVPUSH ONETIME ONE Stop: 03/02/20 13:08 Last Admin: 03/02/20 13:17 Dose: 1 mg Documented by: Lorazepam (Ativan) 0.5 mg IVPUSH Q4H PRN PRN Reason: Nausea/Vomiting Last Admin: 03/03/20 13:18 Dose: 0.5 mg Documented by: Lorazepam (Ativan) 0 mg PO ASDIRECTED BRITTANY; Protocol Last Admin: 03/05/20 11:31 Dose: 1 mg Documented by: Lorazepam (Ativan) 0 mg IV ASDIRECTED BRITTANY; Protocol Last Admin: 03/06/20 17:58 Dose: 2 mg Documented by: Midazolam HCl (Versed 1 Mg/Ml) Confirm Administered Dose 2 mg .ROUTE .STK-MED ONE Stop: 03/03/20 14:46 Ondansetron HCl (Zofran) 4 mg IV Q6H PRN PRN Reason: Nausea/Vomiting Oxycodone HCl (Oxycodone) 5 - 10 mg PO Q4H PRN PRN Reason: Pain Last Admin: 03/07/20 10:11 Dose: 5 mg Documented by: Potassium Chloride (Klor-Con M20) 20 meq PO ONETIME ONE Stop: 03/02/20 17:01 Last Admin: 03/02/20 17:47 Dose: 20 meq Documented by: Propofol (Diprivan 20 Ml) Confirm Administered Dose 200 mg .ROUTE .[employer]-MED ONE Stop: 03/03/20 14:47 - Exam Quality Assessment: Reports: DVT Prophylaxis General: Reports: Alert, Oriented, Cooperative, Mild Distress Lungs: Reports: Clear to Auscultation, Normal Respiratory Effort Cardiovascular: Reports: Regular Rate, Regular Rhythm, No Murmurs GI/Abdominal Exam: Soft, Non-Tender, No Organomegaly, No Distention *Q Meaningful Use (DIS) - VTE *Q VTE Pharmacological Contraindications *Q: Patient Scheduled Surgery
[2020-03-09] MEDS: Enoxaparin 30 MG/0.3 ML Syringe SUBCUT SCH (18:13)
[2020-03-09] MEDS: Melatonin 3 MG Tab PO SCH (20:21)
[2020-03-09] MEDS ORDERED: traZODone 50 MG Tab PO SCH (21:00)
[2020-03-10] MEDS: oxyCODONE 5 MG Tab PO PRN ×3 (01:31→10:38)
[2020-03-10] MEDS: Acetaminophen 325 MG Tab PO PRN ×3 (01:31→10:31)
[2020-03-10 03:10] VITALS: PULSE 78
[2020-03-10] MEDS: Pantoprazole 40 MG Tab.CR PO SCH (08:32)
[2020-03-10] MEDS: Phenytoin 100 MG Cap.ER PO SCH (10:28)
[2020-03-10] MEDS: Thiamine 100 MG Tab PO SCH (10:28)
[2020-03-10] MEDS: Citalopram 20 MG Tab PO SCH (10:29)
[2020-03-10] MEDS: Folic Acid 1 MG Tab PO SCH (10:29)
[2020-03-10] MEDS: Tamsulosin 0.4 MG Cap.ER PO SCH (10:30)
[2020-03-10] MEDS: Losartan 50 MG Tab PO SCH (10:30)
[2020-03-10] MEDS: cloNIDine 0.1 MG Tab PO SCH (10:31)
[2020-03-10 10:32] VITALS: BP 139/78
[2020-03-10] MEDS: PHENobarbital 32.4 MG Tab PO SCH (10:35)
--- NOTE | 2020-04-04 19:26 | OR ---
DATE OF PROCEDURE: 03/03/2020 SURGEON: Romeo Scott MD PREOPERATIVE DIAGNOSIS: Peritrochanteric fracture, left hip. POSTOPERATIVE DIAGNOSIS: Peritrochanteric fracture, left hip. PROCEDURE: Closed reduction and intramedullary fixation, left hip, using a long [employer] TFN nail, size 12 x 380 mm with a 95 mm helical screw. ANESTHESIA: Spinal with sedation. INDICATIONS: Mr. Degroot is a 69-year-old gentleman who was found on his floor during a wellness check and brought to the emergency department for evaluation. He has a history of chronic alcohol abuse. He was found to have an intertrochanteric fracture with subtrochanteric extension and minimal displacement. He was admitted for observation in the ICU as he has been on the floor for an unknown duration, possible head injury and/or rhabdomyolysis. He was stable throughout the night and taken to the operating room the following day for fixation of the fracture. Risks, benefits, potential complications of the procedure were discussed with the patient. DESCRIPTION OF PROCEDURE: After adequate anesthesia was obtained, the patient was placed supine on the fracture table. Right leg was supported in the traction boot and abducted. Left leg was placed in traction boot and adducted slightly and traction applied. Fluoroscopy was used to confirm reduction. The left hip and leg were then prepped and draped in a sterile fashion. Incision was made just above the trochanter, carried down to the subcutaneous tissues and the tensor fascia was then divided and blunt dissection carried down to the tip of the trochanter. Under fluoroscopic guidance, a guide pin was placed into the trochanter and intramedullary canal. A flexible reamer was then placed over this. A long guidewire was then maneuvered across the fracture and down to the knee and position confirmed using fluoroscopy. The length was measured and a 380 mm length was selected. Canal was then sequentially reamed up to 13 mm and the 12 mm diameter evette was then chosen. The long evette was then placed over the guidewire and position confirmed with fluoroscopy. Guidewire was removed. Aiming guide was placed for the helical screw and a separate incision was made inferior to the trochanter and carried down through the subcutaneous tissues and IT band. Guide was placed against the lateral cortex and a guidewire was then advanced into the femoral head and neck and position confirmed the central location in the AP and lateral images. This was measured. The lateral cortex was drilled and helical screw was then tapped into position flush with the lateral cortex. The guide pin was removed. The locking screw was tightened and the insertion guide was then removed. Final position was confirmed on AP and lateral images. Fluoroscopy was then moved distally and a lateral of the knee was obtained. Lateral locking screw position was visualized. A small stab incision was made over the dynamic locking screw position. Drill was then placed using a freehand technique. It was measured and the locking screw was then placed in position, confirmed fluoroscopically. The wounds were then irrigated. Tensor fascia and IT band were closed with #1 Vicryl. Skin was closed with 2-0 Vicryl and a running 3-0 Monocryl. Steri-Strips were applied. Sterile dressing was then placed. The patient was taken from the operating room in stable condition. There were no complications. Romeo Scott MD /[id number]
== END 2020-03-10 12:17 | DRG 481 ==
LOC: JP.ED 12:27 → JP.ICU 15:59
PROVIDERS: ADMIT Internal Medicine; ATTEND Hospitalist
PROC: 0QS736Z Reposition Left Upper Femur with Intramedullary Internal Fixation Device, Percutaneous Approach (ICD-10-PCS; principal; 2020-03-03)
DX: S72.142A Displaced intertrochanteric fracture of left femur, initial encounter for closed fracture (principal); T14.8XXA Other injury of unspecified body region, initial encounter; S72.145A Nondisplaced intertrochanteric fracture of left femur, initial encounter for closed fracture; F10.239 Alcohol dependence with withdrawal, unspecified; S02.2XXA Fracture of nasal bones, initial encounter for closed fracture; Y90.9 Presence of alcohol in blood, level not specified; E86.0 Dehydration; H54.7 Unspecified visual loss; H35.30 Unspecified macular degeneration; I25.10 Atherosclerotic heart disease of native coronary artery without angina pectoris; K59.09 Other constipation; K21.9 Gastro-esophageal reflux disease without esophagitis; Z20.828 Contact with and (suspected) exposure to other viral communicable diseases; I11.0 Hypertensive heart disease with heart failure; I50.9 Heart failure, unspecified; N40.0 Benign prostatic hyperplasia without lower urinary tract symptoms; M54.9 Dorsalgia, unspecified; F32.9 Major depressive disorder, single episode, unspecified; M81.0 Age-related osteoporosis without current pathological fracture; G89.29 Other chronic pain; Z85.118 Personal history of other malignant neoplasm of bronchus and lung; Z98.49 Cataract extraction status, unspecified eye; J44.9 Chronic obstructive pulmonary disease, unspecified; Z98.890 Other specified postprocedural states; G62.9 Polyneuropathy, unspecified; F17.200 Nicotine dependence, unspecified, uncomplicated; Y90.8 Blood alcohol level of 240 mg/100 ml or more; G40.909 Epilepsy, unspecified, not intractable, without status epilepticus; E87.6 Hypokalemia; M54.6 Pain in thoracic spine; F10.229 Alcohol dependence with intoxication, unspecified; Z88.0 Allergy status to penicillin; Z79.899 Other long term (current) drug therapy; Z86.718 Personal history of other venous thrombosis and embolism; Z86.711 Personal history of pulmonary embolism; Z85.850 Personal history of malignant neoplasm of thyroid; Z79.01 Long term (current) use of anticoagulants; Z90.49 Acquired absence of other specified parts of digestive tract; W19.XXXA Unspecified fall, initial encounter; Y92.009 Unspecified place in unspecified non-institutional (private) residence as the place of occurrence of the external cause
CPT/HCPCS: 36415; 70450 ×2; 70486 ×2; 71045 ×2; 72125 ×2; 73501 ×2; 80053; 80307; 82140; 82550; 83605; 83690; 83735; 84100; 84484; 85025; 85610; 93005; 93010; 96374; 99285; 99291; J2060; 27245; 51702; 76000; 80048; 81001; 85027; 97110-GP; 97116-GP; 97162-GP; 97530-GP; 99024; 99221; 99222-AI; 99231; 99232; 99238; A9270-GY; C1713; J0690; J1170; J1630; J1650; J2001; J2250; J2704; J3010; J3480; J7050; J7120; U0002